=== PATIENT | female | born 1955 | race Caucasian/White ===

== ENCOUNTER 2019-04-14 23:56 | Inpatient (IN) | payer MEDICARE, MEDICAID, SELFPAY ==
[2019-04-15] VITALS (8 sets, daily range): BP systolic 101–128; BP diastolic 57–76; PULSE 61–73; RESP 14–22; TEMP 36.6–37.2; O2SAT 94–97; BMI 28.3
--- NOTE | 2019-04-15 00:04 | XR_ITS ---
WS: [id number] CHEST XRAY TECHNIQUE: Portable chest. CLINICAL INFORMATION: DOWNTIME: DEFIB FIRED COMPARISON: [id number] FINDINGS: Heart: Cardiomegaly. AICD. Lungs: Mild pulmonary vascular congestion. Chronic emphysematous changes. No focal pneumonia. Bones: Normal visualized bony structures. XR/XR chest 1V portable [id number] IMPRESSION: Cardiomegaly with mild pulmonary vascular congestion. No focal pneumonia.
[2019-04-15 00:54] LABS: Add RBC Morph No
[2019-04-15 00:56] LABS: Basophils % 0.2 %; Eosinophils % 0.1 %; Lymphocytes # 4.5 10^3/uL (0.8-4.8); Lymphocytes % 36.9 %; Mean Corpuscular HGB Conc 32.4 g/dL (30.0-36.0); Mean Corpuscular Hemoglobin 30.8 pg (28.0-34.0); Mean Corpuscular Volume 95.1 fL (81-99); Mean Platelet Volume 11.8 fL (7.4-10.4); Monocytes # 0.7 10^3/uL (0.2-0.9); Monocytes % 5.9 %; Neutrophils # 6.9 10^3/uL (1.8-7.7); Neutrophils % 56.3 %; Nucleated Red Blood Cells % 0 %; Platelet Count 220 10^3/cmm (130-400); Red Blood Count 3.89 10^6/uL (4.1-5.3); White Blood Count 12.2 10^3/uL (4.0-10.0)
[2019-04-15 01:01] LABS: INR 0.93 (0.8-1.2)
--- NOTE | 2019-04-15 01:25 | PC.NURSE ---
Patient c/o defibrillator discharging one time
--- NOTE | 2019-04-15 01:45 | P.HP_ITS ---
Providers/Chief Complaint Primary Care Provider: Lois Sorto Chief Complaint: DEFIBULATER History of Present Illness Amber White is a 64 year old female who carries diagnosis of systolic congestive heart failure with reduced ejection fraction 30% status post AICD placement, ventricular arrhythmia, AICD firing, came in after she had AICD firing today 2 hours before her presentation to the hospital. Please note that her recent admission was also when she had AICD firing and device interrogation showed ventricular tachyarrhythmia, she was recommended coronary angiogram which she refused and decided to go home and think about it, she could not tolerate amiodarone hence metoprolol dose was increased to 50 mg twice a day. She was asked to follow-up with Dr. Saldaña. Patient has followed up with [facility], her lisinopril was discontinued and she was started on Entresto, recently she had a gout flareup in her left ankle and she was prescribed prednisone, colchicine along with allopurinol. Today patient presented to ER after her AICD fired 2 hours before her arrival to ED. Patient is stating that she went to her friend's place where they usually meet on regular basis, came back home, she was sitting in her couch when her AICD fired, this will be her third event, this year she had AICD discharge in January as well. She did not tolerate amiodarone, her athletic field custodian attributed her cataract to amiodarone. Patient is denying chest pain, shortness of breath, nausea, vomiting, she is complaining of left ankle pain and headache at this point, no recent flulike symptoms. Diagnostics in ER showed normal electrolytes, blood pressure has been systolic 100-1 06, saturating 95% on room air, I have requested BNP, chest x-ray Review of Systems Narrative: Patient was very agitated and was not really cooperative for the interview, Eyes: Denies: change in vision, blurry vision or eye redness ENMT: Denies: throat pain Card: Reports: swelling of feet/ankles, shortness of breath on exertion and shortness of breath when lying down; Denies: chest pain or palpitations Resp: Reports: shortness of breath GI: Denies: abdominal pain, nausea or vomiting : Denies: flank pain or difficulty urinating Musc: Reports: extremity swelling, joint pain, joint swelling and redness Neuro: Reports: restless legs Psych: Reports: anxiety Endo: Denies: excessive urination Mert/Lymph: Denies: easy bruising All/Imm: Reports: seasonal allergies Medications/Allergies Home Medications Medication Instructions Recorded Confirmed Last Taken Type allopurinol 300 mg PO DAILY 04/15/19 04/15/19 Unknown History budesonide-formoterol [Symbicort] 2 puff INHALATION BID 04/15/19 04/15/19 Unknown History clopidogrel 75 mg PO DAILY 04/15/19 04/15/19 Unknown History colchicine [Colcrys] 0.6 mg PO Q48H 04/15/19 04/15/19 Unknown History furosemide 40 mg PO BID 04/15/19 04/15/19 Unknown History gabapentin 300 mg PO TID 04/15/19 04/15/19 Unknown History levocetirizine 5 mg PO DAILY 04/15/19 04/15/19 Unknown History metoprolol tartrate 25 mg PO BID 04/15/19 04/15/19 Unknown History potassium chloride 20 meq PO BID 04/15/19 04/15/19 Unknown History rosuvastatin 10 mg PO DAILY 04/15/19 04/15/19 Unknown History sacubitril-valsartan [Entresto] 1 tab PO BID 04/15/19 04/15/19 Unknown History spironolactone 25 mg PO DAILY 04/15/19 04/15/19 Unknown History Allergies Allergy/AdvReac Type Severity Reaction Status Date / Time povidone-iodine Allergy Mild Unknown Verified 04/15/19 01:25 [From Betadine] soap [From Betadine] Allergy Mild Unknown Verified 04/15/19 01:25 PFSH Acute PFSH: Statuses (acute, chronic, etc) shown below reflect problem list status as previously entered and may not be historically accurate Medical History Arthritis (Acute) Back pain (Acute) COPD (chronic obstructive pulmonary disease) (Acute) Coronary artery disease (Chronic) Depression (Acute) Dyslipidemia (Acute) H/O coronary angiogram (Acute) Showed patent stented segment of RCA with diffuse disease in other vessels Neuropathy (Acute) Oxygen dependent (Acute) Non-oxygen dependent, BiPAP at night with 2 L oxygen attached Reduced ejection fraction concurrent with and due to acute heart failure (C hronic) Ejection fraction 30%, Sleep apnea (Acute) uses Bipap at night with 2 L o2 Sleep apnea with mood disorder (Acute) Smoker (Acute) Surgical History (Updated 04/15/19 @ 03:27 by Virgilio Santana MD) AICD (automatic cardioverter/defibrillator) present (Acute) 05/21/[address] Boucher History of appendectomy (Acute) History of implantable cardioverter-defibrillator (ICD) placement (Acute) History of tubal ligation (Acute) Hx of tonsillectomy (Acute) Social History Smoking and tobacco status: current some day smoker Alcohol intake: never Lives independently: Yes Marital status: / Vitals/I&O/Wt Weight last 48 hrs Weight 74.843 kg Physical Exam Narrative: EXAM NARRATIVE: Obese female was very agitated when I enter the room, sitting at the bedside HENMT: COMMON NORMALS: normocephalic Eye: COMMON NORMALS: PERRL and EOMs intact bilaterally Chest: CHEST: Yes symmetrical chest wall rise and No crepitus Cardio: COMMON NORMALS: regular rate, regular rhythm, S1 normal heart sound and S2 normal heart sound JUGULAR VENOUS DISTENTION: no JVD RHYTHM: regular rhythm GI: COMMON NORMALS: normal to inspection, nondistended, normoactive bowel sounds Extremity: OTHER: Tender left ankle, she did not really let me touch the left foot, her bilateral extremities are not edematous Neuro: COMMON NORMALS: oriented x3, CN's II-XII intact bilaterally, moves all extremities, no focal motor deficits, no sensory deficits noted and deep tendon reflexes 2+ bilaterally SENSORIUM/ORIENTATION: Yes alert and Yes oriented to person Psych: COMMON NORMALS: mental status grossly normal; negative for cooperative ACTIVITY/MOTOR BEHAVIOR: Yes psychomotor agitation and Yes restless Data Labs: Other Labs: All Labs last 24 hrs except CBC/BMP 04/14/19 04/14/19 04/15/19 23:35 23:35 23:35 RBC 3.89 L MCV 95.1 MCH 30.8 MCHC 32.4 RDW 15.0 MPV 11.8 H Neut % (Auto) 56.3 Lymph % (Auto) 36.9 [place] % (Auto) 5.9 Eos % (Auto) 0.1 Baso % (Auto) 0.2 Neut # (Auto) 6.9 Lymph # (Auto) 4.5 [place] # (Auto) 0.7 Eos # (Auto) 0.0 Baso # (Auto) 0.0 Nucleated RBC % (a uto) 0 Nucleated RBCs # 0.0 PT 12.80 INR 0.93 GFR Calculation 45.2 L Calcium 10.3 H Total Bilirubin 0.2 AST 18 ALT 16 Alkaline Phosphata se 102 Troponin T Baselin e 19 H Total Protein 7.2 Albumin 4.9 Globulin 2.3 A&P Assessment and plan (1) AICD discharge: Third event, no electrolyte imbalance, she did not tolerate amiodarone last time because of cataract development, I had a discussion with her that if overnight her AICD keeps discharging we will have to use amiodarone we will not use it for long-term, she is agreeable Device interrogation Status: Acute Code(s): Z45.02 - Encounter for adjustment and management of automatic implantable cardiac defibrillator (2) Reduced ejection fraction concurrent with and due to acute heart failure: Clinically patient looks compensated for her systolic congestive heart failure exacerbation which is chronic we will get BNP level for now I will keep her on same home regimen of Lasix long potassium supplementation Troponin mild elevation will check second and 6-hour troponin, EKG has been normal Patient is chest pain-free Status: Chronic Code(s): I50.21 - Acute systolic (congestive) heart failure (3) Coronary artery disease: Patient was recommended another coronary angiogram on last visit Entresto has been added by cardiology to see her response She is agreeable to get another angiogram if that would help her with her symptoms Status: Chronic Qualifiers: Coronary Disease-Associated Artery/Lesion type: due to calcified coronary lesion Qualified Code(s): I25.10 - Atherosclerotic heart disease of [place] coronary artery without angina pectoris; I25.84 - Coronary atherosclerosis due to calcified coronary lesion Code(s): I25.10 - Atherosclerotic heart disease of [place] coronary artery without angina pectoris (4) AICD (automatic cardioverter/defibrillator) present: This will be her third event of AICD discharge, previous AICD interrogation showed ventricular arrhythmia when she had syncopal event, she has normal electrolytes, she has not been able to rest properly for last 48 hours, she is currently smoking, chest pain-free, agreeable to get another angiogram Compliant with her medications We will get cardiology consult in the morning Patient is specifically requesting Dr. Saldaña Device interrogation Status: Acute Code(s): Z95.810 - Presence of automatic (implantable) cardiac defibrillator (5) Gout attack: She needs 2 more days of steroids, will continue allopurinol and colchicine for now she has gout flareup of left ankle, uric acid not relevant in acute attack would not rely on it however less than 6 Status: Acute Qualifiers: Gout site: ankle Laterality: left Qualified Code(s): M10.272 - Drug- induced gout, left ankle and foot Code(s): M10.9 - Gout, unspecified (6) Smoker: She is smoking 1 pack/day, not ready to quit Status: Acute Code(s): F17.200 - Nicotine dependence, unspecified, uncomplicated (7) Sleep apnea syndrome: She uses BiPAP at night with 2 L, currently refusing BiPAP and is agreeable to get oxygen at night, Status: Acute Code(s): G47.30 - Sleep apnea, unspecified Attestations Medical Necessity Statement*: This will be her third event of AICD discharge, however no inciting factor identified other than her chronic condition of systolic congestive heart failure and coronary artery disease, will touch base with cardiology in the morning I am anticipating she will be discharge in less than 48 hours if angiogram does not get planned on this visit Time Spent in Patient Care: (>than 50% of time spent in counselling and/or direct pt care on unit) . 60 Coding Level of Care Code Acute Cloth Boil Off Machine Operator for Claudiag Fwd Diagnoses AICD discharge Z45.02 Reduced ejection fraction concurrent with and due to acute heart failure I50.21 Coronary artery disease I25.10; I25.84 Coronary Disease-Associated Artery/Lesion type: due to calcified coronary lesion AICD (automatic cardioverter/defibrillator) present Z95.810 Gout attack M10.272 Gout site: ankle Laterality: left Smoker F17.200 Sleep apnea syndrome G47.30
[2019-04-15] MEDS: acetaminophen 500 mg Tablet 1000 MG PO (02:29)
--- NOTE | 2019-04-15 07:30 | PC.NURSE ---
PT ARRIVED TO FLOOR VIA WHEEL CHAIR FROM ED TO ROOM 102. PT TRANSFERRED SELF TO BED FROM WHEEL CHAIR. PT IN SINUS RHYTHM. V/S WNL. WILL CONTINUE TO MONITOR.
[2019-04-15] MEDS: predniSONE 20 mg Tablet 40 MG PO (08:29)
[2019-04-15] MEDS: atorvastatin 40 mg Tablet PO (08:30)
[2019-04-15] MEDS: clopidogrel 75 mg Tablet PO (08:30)
[2019-04-15] MEDS: metoprolol tartrate 50 mg Tablet PO ×2 (08:30→17:53)
[2019-04-15] MEDS: allopurinol 300 mg Tablet PO (08:30)
[2019-04-15] MEDS: sacubitril/valsartan 24-26 mg Tablet 1 EACH PO ×2 (08:30→17:59)
[2019-04-15] MEDS: FUROsemide 40 mg Tablet PO (08:31)
[2019-04-15] MEDS: gabapentin 300 mg Capsule PO ×3 (08:31→21:34)
[2019-04-15] MEDS: heparin 5,000 unit/mL INJ 1 mL 5000 UNIT SUBCUT ×2 (11:00→21:34)
[2019-04-15] MEDS: acetaminophen 325 mg Tablet 650 MG PO (11:01)
--- NOTE | 2019-04-15 12:02 | PC.CHAP ---
Pastoral Care Encounter/Spiritual Assessment Type of Contact [] Declined fish straightener visit [] Patient/Family/Request visit [] Outpatient visit [] Follow-up visit [] Physician referral [] Code/Alert [x] Routine visit [] Staff referral [] Actively dying [] Patient sleeping [] Family support [] [] Out of room [] Palliative care [] [] Receiving care in room [] Pre-surgical visit [] Trauma [] Long length of stay [] ICU visit [] Other: Relational/Emotional Strength [] Patient feels connected with others/family/visitors/staff [] Distress [] Loneliness/isolation [] Abandonment Spirituality of Patient [] Person of Yanni [] Attends Sikhism of their [place] [x] Believes in Prayer [] Reads Bible or Jew materials [] There are Spiritual issues to be addressed Bias Cutting Machine Operator Interventions [x] Prayer [x] Active listening [] Non-anxious presence [] Spiritual/emotional support [] Crisis/trauma care [] Spiritual counseling [] Bereavement support [] Provided bereavement packet [] Provided Bible/devotional materials [] Provided toy/stuffed animal, coloring book to patient or family member [] Completed spiritual assessment [] Provided Communion [] Anointing/[place] [] Salvation [] Other: Impact on Illness or Injury [x] Angry [] Fearful [x] Anxious [] Often cries [] Exhaustion [] Unable to work [] Unable to attend church [] Unable to walk/stand [] Unable to read [] Unable to drive [] Unable to eat/drink [] Unable to sleep [] Unable to be with family [] Other: Summary Had not been seen by doctor yet... checked into ER/new computer system ... Time spent with patient 5 minutes
--- NOTE | 2019-04-15 12:28 | PC.CHAP ---
Pastoral Care Encounter/Spiritual Assessment Type of Contact [] Declined hotel yardperson visit [] Patient/Family/Request visit [] Outpatient visit [] Follow-up visit [] Physician referral [] Code/Alert [x] Routine visit [] Staff referral [] Actively dying [] Patient sleeping [] Family support [] [] Out of room [] Palliative care [] [] Receiving care in room [] Pre-surgical visit [] Trauma [] Long length of stay [] ICU visit [] Other: Relational/Emotional Strength [] Patient feels connected with others/family/visitors/staff [x] Distress [] Loneliness/isolation [] Abandonment Spirituality of Patient [] Person of Yanni [] Attends Hindu of their [place] [x] Believes in Prayer [] Reads Bible or Denominational materials [] There are Spiritual issues to be addressed Audio Tape Librarian Interventions [x] Prayer [x] Active listening [x] Non-anxious presence [x] Spiritual/emotional support [] Crisis/trauma care [] Spiritual counseling [] Bereavement support [] Provided bereavement packet [] Provided Bible/devotional materials [] Provided toy/stuffed animal, coloring book to patient or family member [x] Completed spiritual assessment [] Provided Communion [] Anointing/[place] [] Salvation [] Other: Impact on Illness or Injury [x] Angry [] Fearful [x] Anxious [] Often cries [] Exhaustion [] Unable to work [] Unable to attend presybeterian [] Unable to walk/stand [] Unable to read [] Unable to drive [] Unable to eat/drink [] Unable to sleep [] Unable to be with family [] Other: Summary wants to see doctor immediately checked into ER ... New System not an excuse for mess pray and leave Time spent with patient 5 minutes
--- NOTE | 2019-04-15 12:37 | P.PN_ITS ---
Subjective Subjective: Interval history: Overnight H&P reviewed. No acute overnight events. Underwent pacemaker interrogation this morning. Cardiology consult placed this morning. Medications: Reviewed: Yes Vitals/I&O/Wt Last Vital Signs Temp 98.2 F 04/15/19 08:00 Pulse 63 04/15/19 08:00 Resp 14 04/15/19 08:00 BP 123/70 04/15/19 08:00 Pulse Ox 97 04/15/19 08:00 04/14/19 04/15/19 04/15/19 22:59 06:59 14:59 Intake Total 100 / 100 240 / 240 Balance 100 / 100 240 / 240 Weight last 48 hrs Weight 109.27 kg Weight 109.316 kg Weight 74.843 kg Physical Exam Const: COMMON NORMALS: no apparent distress, oriented x3 and alert Neck/C-Spine: COMMON NORMALS: no JVD Resp: COMMON NORMALS: normal respiratory effort, no retractions, no use of accessory muscles and clear to auscultation bilaterally AUSCULTATION: clear to auscultation bilaterally Cardio: COMMON NORMALS: no JVD, regular rate, regular rhythm, S1 normal heart sound, S2 normal heart sound and no gallops RATE: regular rate RHYTHM: regular rhythm HEART SOUNDS: S1 normal and S2 normal GI: COMMON NORMALS: normal to inspection, nondistended, normoactive bowel sounds, soft to palpation, non-tender and no hepatosplenomegaly PALPATION: Yes soft and Yes no hepatosplenomegaly Extremity: COMMON NORMALS: normal to inspection Neuro: COMMON NORMALS: oriented x3 and CN's II-XII intact bilaterally SENSORIUM/ORIENTATION: Yes alert Data Labs: Other Labs: All Labs last 24 hrs except CBC/BMP 04/14/19 04/14/19 04/15/19 23:35 23:35 23:35 RBC 3.89 L MCV 95.1 MCH 30.8 MCHC 32.4 RDW 15.0 MPV 11.8 H Neut % (Auto) 56.3 Lymph % (Auto) 36.9 [place] % (Auto) 5.9 Eos % (Auto) 0.1 Baso % (Auto) 0.2 Neut # (Auto) 6.9 Lymph # (Auto) 4.5 [place] # (Auto) 0.7 Eos # (Auto) 0.0 Baso # (Auto) 0.0 Nucleated RBC % (a uto) 0 Nucleated RBCs # 0.0 PT 12.80 INR 0.93 GFR Calculation 45.2 L Calcium 10.3 H Total Bilirubin 0.2 AST 18 ALT 16 Alkaline Phosphata se 102 Troponin T Baselin e 19 H Total Protein 7.2 Albumin 4.9 Globulin 2.3 A&P Assessment and plan (1) AICD discharge: Third event, no electrolyte imbalance, she did not tolerate amiodarone last time because of cataract development, I had a discussion with her that if overnight her AICD keeps discharging we will have to use amiodarone we will not use it for long-term, she is agreeable Device interrogation Status: Acute Code(s): Z45.02 - Encounter for adjustment and management of automatic implantable cardiac defibrillator (2) Reduced ejection fraction concurrent with and due to acute heart failure: Status: Chronic Code(s): I50.21 - Acute systolic (congestive) heart failure (3) Coronary artery disease: Patient was recommended another coronary angiogram on last visit Eladio has been added by cardiology to see her response She is agreeable to get another angiogram if that would help her with her symptoms Status: Chronic Qualifiers: Coronary Disease-Associated Artery/Lesion type: due to calcified coronary lesion Qualified Code(s): I25.10 - Atherosclerotic heart disease of [place] coronary artery without angina pectoris; I25.84 - Coronary atherosclerosis due to calcified coronary lesion Code(s): I25.10 - Atherosclerotic heart disease of [place] coronary artery without angina pectoris (4) AICD (automatic cardioverter/defibrillator) present: This will be her third event of AICD discharge, previous AICD interrogation showed ventricular arrhythmia when she had syncopal event, she has normal electrolytes, she has not been able to rest properly for last 48 hours, she is currently smoking, chest pain-free, agreeable to get another angiogram Compliant with her medications We will get cardiology consult in the morning Patient is specifically requesting Dr. Saldaña Device interrogation Status: Acute Code(s): Z95.810 - Presence of automatic (implantable) cardiac defibrillator (5) Gout attack: She needs 2 more days of steroids, will continue allopurinol and colchicine for now she has gout flareup of left ankle, uric acid not relevant in acute attack would not rely on it however less than 6 Status: Acute Qualifiers: Gout site: ankle Laterality: left Qualified Code(s): M10.272 - Drug- induced gout, left ankle and foot Code(s): M10.9 - Gout, unspecified (6) Smoker: She is smoking 1 pack/day, not ready to quit Status: Acute Code(s): F17.200 - Nicotine dependence, unspecified, uncomplicated (7) Sleep apnea syndrome: She uses BiPAP at night with 2 L, currently refusing BiPAP and is agreeable to get oxygen at night, Status: Acute Code(s): G47.30 - Sleep apnea, unspecified Coding Level of Care Code Acute Station Gateman for Chg Fwd Diagnoses AICD discharge Z45.02 Reduced ejection fraction concurrent with and due to acute heart failure I50.21 Coronary artery disease I25.10; I25.84 Coronary Disease-Associated Artery/Lesion type: due to calcified coronary lesion AICD (automatic cardioverter/defibrillator) present Z95.810 Gout attack M10.272 Gout site: ankle Laterality: left Smoker F17.200 Sleep apnea syndrome G47.30
--- NOTE | 2019-04-15 13:10 | P.CONIM_ITS ---
Providers/Reason For Consult Consulting Physican/Specialty*: Dr. Corona, cardiology Reason for Consult*: ICD firing Attending Physician: Virgilio Santana MD Primary Care Provider: Lois Sorto History of Present Illness History of Present Illness Amber White is a 64 year old female woman with past medical history of coronary artery disease status post RCA stent, H/o ischemic cardiomyopathy with last known left ventricular ejection fraction of 30% in January 2019, status p ost dual-chamber ICD placement in 2012 and generator change in May 2018, history of ventricular arrhythmia status post AICD discharge in January 2019 (for fast VT with cycle length of 200 ms with successful cardioversion), hypertension, dyslipidemia, obesity, chronic obstructive pulmonary disease, and obstructive sleep apnea on BiPAP at night presented with chief complaint of ICD firing. Patient had a pot luck with her friends yesterday evening and was waiting for midnight while reading her newspaper and all of a sudden she states the device started beeping and she felt that it shocked her. She denies having any chest pain or shortness of breath before or after the episode. She has gained some weight since February but denies having any orthopnea paroxysmal nocturnal dyspnea or lower extremity swelling. This episode felt different from her episode back in January where she had passed out at restaurant. She usually follows up with Dr. Saldaña and last saw him on 17 March 2019. In her hospitalization in January 2019, she underwent stress test which showed ronnie-infarct ischemia in inferior wall (in absence of prone imaging artifact could not be ruled out). Coronary angiogram was offered to her and at that point she wanted to think about it and discussed with Dr. Saldaña. Her lisinopril was changed to Entresto and dose of metoprolol was increased. Her device was interrogated ([employer] AAIR/DDDR 60/130/120). 1 episode of ventricular tachycardia at 290 ms with aborted charging due to successful antitachycardia pacing at 1:14 AM. No shocks. Review of Systems Const: Denies: fever, chills, change in appetite, fatigue or malaise Eyes: Denies: change in vision or eye discharge ENMT: Denies: throat pain, swelling of lips/tongue, bleeding gums, nasal congestion or nose bleeds Card: Denies: chest pain, palpitations, irregular heart rhythm, edema, lightheadedness, syncope, shortness of breath on exertion, shortness of breath when lying down or leg pain with exertion Resp: Denies: shortness of breath, productive cough, wheezing or coughing up blood GI: Denies: abdominal pain, nausea, vomiting, vomiting blood, heartburn/indigestion, diarrhea, constipation, change in bowel habits or blood in stool : Denies: difficulty urinating, painful urination, decreased urine ouput or blood in urine Musc: Denies: extremity swelling Skin/Breast: Denies: rash Neuro: Denies: weakness in extremities Endo: Denies: tired all the time Meds/Allergies Home Medications and Allergies Home Medications Medication Instructions Recorded Confirmed Type Vitamin C 500 mg PO DAILY 04/15/19 04/15/19 History albuterol sulfate 04/15/19 History allopurinol 300 mg PO DAILY 04/15/19 04/15/19 History aspirin 81 mg PO DAILY 04/15/19 04/15/19 History budesonide-formoterol [Symbicort] 2 puff INHALATION BID 04/15/19 04/15/19 Hist ory clopidogrel 75 mg PO DAILY 04/15/19 04/15/19 History furosemide 40 mg PO BID 04/15/19 04/15/19 History gabapentin 300 mg PO TID 04/15/19 04/15/19 History ipratropium bromide [Atrovent HFA] 2 puff INHALATION QID 04/15/19 04/15/19 History levocetirizine 5 mg PO DAILY 04/15/19 04/15/19 History magnesium oxide 250 mg PO DAILY 04/15/19 04/15/19 History metoprolol tartrate 25 mg PO BID 04/15/19 04/15/19 History multivitamin 1 tab PO DAILY 04/15/19 04/15/19 History nitroglycerin [Nitrostat] 0.4 mg SUBLINGUAL PRN 04/15/19 04/15/19 History omega-3 fatty acids 4,000 mg PO DAILY 04/15/19 04/15/19 History potassium chloride 20 meq PO BID 04/15/19 04/15/19 History ranitidine HCl 75 mg PO DAILY 04/15/19 04/15/19 History rosuvastatin 10 mg PO DAILY 04/15/19 04/15/19 History sacubitril-valsartan [Entresto] 1 tab PO BID 04/15/19 04/15/19 History spironolactone 25 mg PO DAILY 04/15/19 04/15/19 History Allergies Allergy/AdvReac Type Severity Reaction Status Date / Time povidone-iodine Allergy Mild Unknown Verified 04/15/19 01:25 [From Betadine] soap [From Betadine] Allergy Mild Unknown Verified 04/15/19 01:25 Current Medications Current Medications Generic Name Dose Route Start Last Admin Trade Name Charo PRN Reason Stop Dose Admin Allopurinol 300 mg 04/15/19 09:00 04/15/19 08:30 Zyloprim PO 300 mg DAILY MINGO Administration Atorvastatin Calcium 40 mg 04/15/19 09:00 04/15/19 08:30 Lipitor PO 40 mg DAILY MINGO Administration Clopidogrel Bisulfate 75 mg 04/15/19 09:00 04/15/19 08:30 Plavix PO 75 mg DAILY MINGO Administration Colchicine 0.6 mg 04/15/19 04:00 04/15/19 11:00 Colcrys PO Not Given Q48H MINGO Gabapentin 300 mg 04/15/19 09:00 04/15/19 08:31 Neurontin PO 300 mg TID MINGO Administration Heparin Sodium (Beef Lung) 5,000 unit 04/15/19 03:15 04/15/19 11:00 Heparin SUBCUT 5,000 unit Q8H MINGO Administration Metoprolol Tartrate 50 mg 04/15/19 09:00 04/15/19 08:30 Lopressor PO 50 mg BID MINGO Administration Potassium Chloride 20 meq 04/15/19 09:00 04/15/19 08:31 Klor-Con 10 PO 20 meq DAILY MINGO Administration Prednisone 40 mg 04/15/19 09:00 04/15/19 08:29 Prednisone PO 04/16/19 08:00 40 mg DAILY MINGO Administration PFSH Acute PFSH: Statuses (acute, chronic, etc) shown below reflect problem list status as previously entered and may not be historically accurate Medical History Arthritis (Acute) Back pain (Acute) Cardiomyopathy (Acute) COPD (chronic obstructive pulmonary disease) (Acute) Coronary artery disease (Chronic) Depression (Acute) Dyslipidemia (Acute) H/O coronary angiogram (Acute) Showed patent stented segment of RCA with diffuse disease in other vessels Neuropathy (Acute) Oxygen dependent (Acute) Non-oxygen dependent, BiPAP at night with 2 L oxygen attached Reduced ejection fraction concurrent with and due to acute heart failure (Chronic) Ejection fraction 30%, Sleep apnea (Acute) uses Bipap at night with 2 L o2 Sleep apnea with mood disorder (Acute) Smoker (Acute) Surgical History (Updated 04/15/19 @ 13:53 by Lidia Corona MD) AICD (automatic cardioverter/defibrillator) present (Acute) ICD placement in [address] with generator [address] Dr[address] Boucher on 05/21/2018 History of appendectomy (Acute) History of implantable cardioverter-defibrillator (ICD) placement (Acute) History of tubal ligation (Acute) Hx of tonsillectomy (Acute) Family History Father Hypertension Mother Diabetes Social History Smoking and tobacco status: current every day smoker cigarettes Alcohol intake: never Lives independently: Yes Marital status: / Vitals/I&O/Wt Last Vital Signs Temp 97.8 F 04/15/19 12:00 Pulse 65 04/15/19 12:00 Resp 14 04/15/19 12:00 BP 108/66 04/15/19 12:00 Pulse Ox 96 04/15/19 12:00 04/14/19 04/15/19 04/15/19 22:59 06:59 14:59 Intake Total 100 / 100 240 / 240 Balance 100 / 100 240 / 240 Weight last 48 hrs Weight 240 lb 14.4 oz Weight 241 lb Weight 165 lb Physical Exam Const: COMMON NORMALS: no apparent distress, oriented x3 and alert GENERAL APPEARANCE: cooperative, comfortable, well kempt and well hydrated HENMT: COMMON NORMALS: normocephalic, head/scalp atraumatic, hearing grossly normal bilaterally, external ears normal, external nose normal and moist oral mucous membranes HEAD & SCALP: normocephalic and atraumatic FACE & SINUS: normal facial exam; no facial edema NOSE: external nose normal and no nasal discharge; no epistaxis EXTERNAL EAR: Yes external ears normal Eye: COMMON NORMALS: PERRL, EOMs intact bilaterally, conjunctivae normal and no scleral icterus GENERAL EYE: normal appearance of both eyes ALIGNMENT: Yes alignment normal CONJUNCTIVA: Yes conjunctivae normal PUPIL: Yes PERRL Neck/C-Spine: COMMON NORMALS: supple, no JVD and thyroid normal GENERAL: Yes normal visual inspection, Yes trachea midline and No mass THYROID: thyroid normal CAROTIDS: Yes normal carotid upstroke CERVICAL SPINE: Yes cervical ROM normal Lymph: LYMPHATIC: no lymphadenopathy noted Chest: COMMONS NORMALS: inspection of chest normal and palpation of chest normal CHEST: Yes symmetrical chest wall rise, No mass, No tenderness, No scars and No rash BREAST/AXILLA INSPECTION: Yes normal inspection of the axillae Resp: COMMON NORMALS: clear to auscultation bilaterally and percussion normal EFFORT & INSPECTION: Yes able to speak in complete sentences, No tachypneic, No respiratory distress, No pursed lip breathing, No labored and No actively coughing AUSCULTATION: clear to auscultation bilaterally, no crackles, no rales, no rhonchi and no wheezes PERCUSSION: percussion normal Cardio: COMMON NORMALS: no JVD, regular rate, regular rhythm, S1 normal heart sound, S2 normal heart sound and peripheral pulses 2+ throughout PALPATION: normal PMI RATE: regular rate RHYTHM: regular rhythm HEART SOUNDS: S1 normal, S2 normal, no click, no gallops and no murmurs PERIPHERAL PULSES: pulses 2+ throughout, radial pulses present, posterior tibial pulses present and dorsalis pedis pulses present GI: COMMON NORMALS: soft to palpation AUSCULTATION: Yes normoactive bowel sounds PALPATION: Yes soft, No tender, No guarding and No rigid Extremity: GENERAL: No cyanosis, Yes edema and No pallor Neuro: COMMON NORMALS: oriented x3, CN's II-XII intact bilaterally, no focal motor deficits and no sensory deficits noted SENSORIUM/ORIENTATION: Yes alert Psych: APPEARANCE: Yes well kempt Data Labs: Other Labs: All Labs last 24 hrs except CBC/BMP 04/14/19 04/14/19 04/15/19 23:35 23:35 23:35 RBC 3.89 L MCV 95.1 MCH 30.8 MCHC 32.4 RDW 15.0 MPV 11.8 H Neut % (Auto) 56.3 Lymph % (Auto) 36.9 [place] % (Auto) 5.9 Eos % (Auto) 0.1 Baso % (Auto) 0.2 Neut # (Auto) 6.9 Lymph # (Auto) 4.5 [place] # (Auto) 0.7 Eos # (Auto) 0.0 Baso # (Auto) 0.0 Nucleated RBC % (a uto) 0 Nucleated RBCs # 0.0 PT 12.80 INR 0.93 GFR Calculation 45.2 L Calcium 10.3 H Total Bilirubin 0.2 AST 18 ALT 16 Alkaline Phosphata se 102 Troponin T Baselin e 19 H Total Protein 7.2 Albumin 4.9 Globulin 2.3 Other Data: Other data: ECHOCARDIOGRAPHY, COMPLETE ? 01/21/2019 1-Moderately increased left ventricular cavity size. Severely decreased left ventricular systolic function. Left ventricular ejection fraction is estimated at 30 %. He appeared to be mid to distal anterior apical and mid to distal lateral wall dyskinesis suggestive of old myocardial infarction in LAD territory. Grade I/IV diastolic dysfunction (abnormal relaxation filling pattern), normal to mildly elevated filling pressures. 2-There is no pericardial effusion. 3-No significant valve abnormalities. 4-Right atrial pressure is around 5 mm of mercury. 5-No significant change since the prior echocardiogram study of 05/30/16. LMM STRESS 01/2019 1. No significant EKG changes with the LexiScan infusion 2. No LexiScan induced chest pain or cardiac arrhythmia 3. Normal blood pressure and heart rate response Large area of fixed perfusion defect noted in the mid to distal anterior anteroseptal and inferior wall surrounded by moderate reversibility in basal tomid inferior wall suggestive of anterior anteroseptal and mid to distal distal old myocardial infarction with moderate ronnie-infarct ischemia in basal to mid inferior wall. LEFT HEARTH CATHETERIZATION 01/01/2014. Procedure Summary Patent stented segments of the RCA Mild disease in the other vessels Severe diffuse hypokinesia of the dilated left ventricle with an ejection fraction of 20%. Mild to moderate MR. Normal LVEDP Recommendations Optimize medical treatment A&P Assessment and plan (1) AICD discharge: * Her device was interrogated ([employer] AAIR/DDDR 60/130/120). 1 episode of ventricular tachycardia at 290 ms with aborted charging due to successful antitachycardia pacing at 1:14 AM. No shocks. * Mild pulmonary congestion on chest x-ray, increasing OptiVol index on device; however clinically appears euvolemic. I will change her afternoon dose of Lasix 40 mg to IV. * Add proBNP to her morning labs. * Maintain potassium more than 4 and magnesium more than 2. * Moderate ronnie-infarct ischemia in inferior wall on stress test in January. * May benefit from coronary angiogram. 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 Saldaña tomorrow morning. * Continue metoprolol tartrate 50 mg twice a day Status: Acute Code(s): Z45.02 - Encounter for adjustment and management of automatic implantable cardia c defibrillator (2) Coronary artery disease: Continue aspirin, plavix and statin. -We will keep her n.p.o. after midnight in preparation for coronary angiogram. Status: Chronic Qualifiers: Coronary Disease-Associated Artery/Lesion type: due to calcified coronary lesion Qualified Code(s): I25.10 - Atherosclerotic heart disease of [place] coronary artery without angina pectoris; I25.84 - Coronary ather osclerosis due to calcified coronary lesion Code(s): I25.10 - Atherosclerotic heart disease of [place] coronary artery without angina pectoris (3) AICD (automatic cardioverter/defibrillator) present: Status: Acute Code(s): Z95.810 - Presence of automatic (implantable) cardiac defibrillator (4) Cardiomyopathy: H/o ischemic cardiomyopathy with last known left ventricular ejection fraction of 30% by echocardiogram and 22% by myocardial perfusion imaging. -On Lasix, metoprolol, Entresto and Aldactone. Status: Acute Code(s): I42.9 - Cardiomyopathy, unspecified (5) Smoker: She is smoking 1 pack/day, not ready to quit Status: Acute Code(s): F17.200 - Nicotine dependence, unspecified, uncomplicated (6) Sleep apnea syndrome: She uses BiPAP at night with 2 L, currently refusing BiPAP and is agreeable to get oxygen at night, Status: Acute Code(s): G47.30 - Sleep apnea, unspecified (7) Gout attack: Status: Acute Qualifiers: Gout site: ankle Laterality: left Qualified Code(s): M10.272 - Drug- induced gout, left ankle and foot Code(s): M10.9 - Gout, unspecified Coding Level of Care Code Acute [employer] Professional for [facility] Fwd Exam Problem Focused Diagnoses AICD discharge Z45.02 Coronary artery disease I25.10; I25.84 Coronary Disease-Associated Artery/Lesion type: due to calcified coronary lesion AICD (automatic cardioverter/defibrillator) present Z95.810 Cardiomyopathy I42.9 Smoker F17.200 Sleep apnea syndrome G47.30 Gout attack M10.272 Gout site: ankle Laterality: left
[2019-04-15] MEDS: FUROsemide 10 mg/mL SDV 4mL 40 MG IVP (13:19)
[2019-04-15] MEDS: ipratropium-albuterol 3 mL Neb INHALATION (13:31)
--- NOTE | 2019-04-15 13:52 | PC.RESP ---
In room to do assessment and give treatment. Med scanned, pt then took a phone call so treatment is delayed. Phone call has now taken over thirty minutes.
--- NOTE | 2019-04-15 14:42 | ECG_ITS ---
Measurements Intervals [place] Rate: 69 P: 70 [place]: 205 QRS: -23 QRSD: 123 T: 75 QT: 413 QTc: 443 SINUS RHYTHM INFERIOR MYOCARDIAL INFARCTION,OF INDETERMINATE AGE ANTEROLATERAL MYOCARDIAL INFARCTION,OF INDETERMINATE AGE Compared to ECG 01/20/2019 20:12:23 Left-axis deviation no longer present Myocardial infarct finding still present Electronically Signed On 04-16-2019 7:34:30 PRACTICING DERMATOLOGIST by Lidia Corona M.D. [email or web address]
[2019-04-15 14:48] LABS: Add Urine Microscopic? NO
[2019-04-15 15:11] LABS: Anion Gap 19.3 (5-19); Blood Urea Nitrogen 36 mg/dL (8-23); Carbon Dioxide 21 mmol/L (22-29); Chloride 100 mmol/L (98-107); Glomerular Filtration Rate 45.2 mL/min (90-130); Potassium 4.3 mmol/L (3.5-5.1); Sodium 136 mmol/L (136-145); Troponin(5th) Baseline 19 ng/mL (0-10)
[2019-04-15 15:12] LABS: Alanine Aminotransferase 16 U/L (0-33); Albumin Level 4.9 g/dL (3.5-5.2); Alkaline Phosphatase 102 IU/L (35-105); Aspartate Amino Transferase 18 U/L (0-32); Calcium 10.3 mg/Dl (8.8-10.2); Globulin 2.3 g/dL (1.3-4.6); Glucose 105 mg/dL (74-106); Total Bilirubin 0.2 mg/dL (0.15-1.2); Total Protein 7.2 g/dL (6.6-8.7)
[2019-04-15 15:25] LABS: Bilirubin Urine Neg (Negative); Blood Urine Neg (Negative); Glucose Urine UA Norm (Normal); Ketones Urine Negative (Negative); Leukocyte Esterase Urine Negative (Negative); Nitrate Urine Negative (Negative); Protein Urine Neg (Negative); Specific Gravity, Urine 1.005 (1.005-1.030); Urine Appearance Clear (CLEAR); Urine Color Straw (Yellow); Urobilinogen Urine Norm (Negative); pH Urine 5 (5-7)
[2019-04-15 15:36] LABS: NT Pro B Type Natriuretic Pept 1273 pg/mL (0-125)
--- NOTE | 2019-04-15 18:38 | PM.PN ---
Subjective Subjective: Interval history: no furtheer episodes of feeling shocks. No chest pain, dyspnea, palpitations. underwent AICD interrogation which showed 1 episode of ventricular tachycardia at 290 ms with aborted charging due to successful antitachycardia pacing at 1:14 AM. No shocks. Also evidence of fluid overload. Patient states her clothes have been fitting her tighter than usual. Vitals/I&O/Wt Last Vital Signs Temp 98.9 F 04/15/19 15:37 Pulse 64 04/15/19 15:37 Resp 21 H 04/15/19 15:37 BP 112/70 04/15/19 15:37 Pulse Ox 94 04/15/19 15:37 04/15/19 04/15/19 04/15/19 06:59 14:59 22:59 Intake Total 100 / 100 360 / 360 480 / 840 Output Total 300 / 300 1000 / 1300 Balance 100 / 100 60 / 60 -520 / -460 Weight last 48 hrs Weight 109.27 kg Weight 109.316 kg Weight 74.843 kg Physical Exam Const: COMMON NORMALS: no apparent distress and oriented x3 Chest: COMMONS NORMALS: inspection of chest normal Resp: COMMON NORMALS: normal respiratory effort, no retractions and no use of accessory muscles AUSCULTATION: rales Cardio: COMMON NORMALS: S1 normal heart sound, S2 normal heart sound, no murmurs and no rub HEART SOUNDS: S1 normal and S2 normal GI: COMMON NORMALS: soft to palpation and non-tender INSPECTION: Yes normal to inspection AUSCULTATION: Yes normoactive bowel sounds PALPATION: Yes soft Neuro: COMMON NORMALS: oriented x3, no sensory deficits noted and deep tendon reflexes 2+ bilaterally Data Labs: Other Labs: All Labs last 24 hrs except CBC/BMP 04/14/19 04/14/19 04/14/19 23:35 23:35 23:35 RBC 3.89 L MCV 95.1 MCH 30.8 MCHC 32.4 RDW 15.0 MPV 11.8 H Neut % (Auto) 56.3 Lymph % (Auto) 36.9 [place] % (Auto) 5.9 Eos % (Auto) 0.1 Baso % (Auto) 0.2 Neut # (Auto) 6.9 Lymph # (Auto) 4.5 [place] # (Auto) 0.7 Eos # (Auto) 0.0 Baso # (Auto) 0.0 Nucleated RBC % (a uto) 0 Nucleated RBCs # 0.0 PT 12.80 INR 0.93 GFR Calculation Calcium Total Bilirubin AST ALT Alkaline Phosphata se Troponin T Baselin e NT-Pro-B Natriuret Pep 1273 H Total Protein Albumin Globulin Urine Color Urine Appearance Urine pH Ur Specific Gravit y Urine Protein Urine Glucose (UA) Urine Ketones Urine Occult Blood Urine Nitrate Urine Bilirubin Urine Urobilinogen Ur Leukocyte Val ase 04/14/19 04/14/19 04/15/19 23:35 23:35 14:00 RBC MCV MCH MCHC RDW MPV Neut % (Auto) Lymph % (Auto) [place] % (Auto) Eos % (Auto) Baso % (Auto) Neut # (Auto) Lymph # (Auto) [place] # (Auto) Eos # (Auto) Baso # (Auto) Nucleated RBC % (a uto) Nucleated RBCs # PT INR GFR Calculation 45.2 L Calcium 10.3 H Total Bilirubin 0.2 AST 18 ALT 16 Alkaline Phosphata se 102 Troponin T Baselin e 19 H NT-Pro-B Natriuret Pep Total Protein 7.2 Albumin 4.9 Globulin 2.3 Urine Color Straw Urine Appearance Clear Urine pH 5 Ur Specific Gravit y 1.005 Urine Protein Neg Urine Glucose (UA) Norm Urine Ketones Negative Urine Occult Blood Neg Urine Nitrate Negative Urine Bilirubin Neg Urine Urobilinogen Norm Ur Leukocyte Val ase Negative 04/15/19 23:35 RBC MCV MCH MCHC RDW MPV Neut % (Auto) Lymph % (Auto) [place] % (Auto) Eos % (Auto) Baso % (Auto) Neut # (Auto) Lymph # (Auto) [place] # (Auto) Eos # (Auto) Baso # (Auto) Nucleated RBC % (a uto) Nucleated RBCs # PT INR GFR Calculation Cancelled Calcium Cancelled Total Bilirubin Cancelled AST Cancelled ALT Cancelled Alkaline Phosphata se Cancelled Troponin T Baselin e Cancelled NT-Pro-B Natriuret Pep Total Protein Cancelled Albumin Cancelled Globulin Cancelled Urine Color Urine Appearance Urine pH Ur Specific Gravit y Urine Protein Urine Glucose (UA) Urine Ketones Urine Occult Blood Urine Nitrate Urine Bilirubin Urine Urobilinogen Ur Leukocyte Val ase A&P Assessment and plan (1) Cardiomyopathy: Status: Acute Code(s): I42.9 - Cardiomyopathy, unspecified (2) Sleep apnea syndrome: Status: Acute Code(s): G47.30 - Sleep apnea, unspecified (3) AICD discharge: Status: Acute Code(s): Z45.02 - Encounter for adjustment and management of automatic implantable cardiac defibrillator (4) Gout attack: Status: Acute Qualifiers: Gout site: ankle Laterality: left Qualified Code(s): M10.272 - Drug-induced gout, left ankle and foot Code(s): M10.9 - Gout, unspecified (5) Oxygen dependent: Status: Acute Code(s): Z99.81 - Dependence on supplemental oxygen (6) COPD (chronic obstructive pulmonary disease): Status: Acute Code(s): J44.9 - Chronic obstructive pulmonary disease, unspecified (7) Reduced ejection fraction concurrent with and due to acute heart failure: Status: Chronic Code(s): I50.21 - Acute systolic (congestive) heart failure (8) Coronary artery disease: Status: Chronic Qualifiers: Coronary Disease-Associated Artery/Lesion type: due to calcified coronary lesion Qualified Code(s): I25.10 - Atherosclerotic heart disease of [place] coronary artery without angina pectoris; I25.84 - Coronary atherosclerosis due to calcified coronary lesion Code(s): I25.10 - Atherosclerotic heart disease of [place] coronary artery without angina pectoris Additional A&P Information Additional A&P Information: 1 episode of VT on interrogation, no electrolyte imbalance, she did not tolerate amiodarone last time because of cataract development. Based on history, she has been having fluid overload recently. She will get additional 40mg iv lasix today. She is exteremely concerned about renal adverse effecs from lasix, therefore we will hold off on po lasix for the evening. Patient was recommended another coronary angiogram on last visit, however she had declined. Option for an angiogram was discussed with her this visit, however she wishes to discuss this further with dr. houser tomorrow and then make a decision. She needs 2 more days of steroids, will continue allopurinol and colchicine for now she has gout flareup of left ankle Attestations Medical Necessity Statement*: management of VT episode last night, CHF and possible angiogram Coding Level of Care Code Acute Shop Coordinator for [facility] Fwd Exam Problem Focused Diagnoses Cardiomyopathy I42.9 Sleep apnea syndrome G47.30 AICD discharge Z45.02 Gout attack M10.272 Gout site: ankle Laterality: left Oxygen dependent Z99.81 COPD (chronic obstructive pulmonary disease) J44.9 Reduced ejection fraction concurrent with and due to acute heart failure I50.21 Coronary artery disease I25.10; I25.84 Coronary Disease-Associated Artery/Lesion type: due to calcified coronary lesion
--- NOTE | 2019-04-15 21:42 | PC.NURSE ---
Patient is refusing Bipap tonight. Patient is also refusing to be woke up in the middle of the night for vitals.
[2019-04-16] VITALS (15 sets, daily range): BP systolic 92–126; BP diastolic 39–67; PULSE 60–93; RESP 13–21; TEMP 36.4–36.8; O2SAT 94–98
--- NOTE | 2019-04-16 | XACV_ITS ---
Ht: 163 cm Wt: 108 kg BSA: 2.26 m2 Gender: Female : 1955 Any Known Allergies: Other Exam Priority: Routine Procedure(s): Procedure Description: Diagnostic procedure Procedure Description: Left Heart Catheterization Diagnostic Cath Status: Elective Diagnostic Findings LM has 0% stenosis. LAD has 0% stenosis. CX has 0% stenosis. RCA is a medium caliber vessel which is extensively stented from the ostium to the bifurcation, extending into the proximal segment of the PDA. The stent was found to be widely patent. No other significant stenotic lesion. The PLV branch was found to have minimal ostial narrowing. Coronary angiography shows right dominance. Conclusions This is a 64-year-old white female with history of hypertension, dyslipidemia, coronary artery disease, cardiomyopathy, ventricular tachycardia, presented with a recurrent episodes of ICD discharges. She had a myocardial perfusion imaging in January 2019 which revealed areas of fixed defect with small areas of reversible defect. In view of the patient's recurrent episodes of ventricular tachycardia and the abnormal myocardial perfusion imaging, it was thought to be appropriate to go ahead and do a cardiac catheterization, to further evaluate the coronary status and decide on further management. Patient underwent left heart catheterization with left and right coronary angiogram today. The findings are as follows. No significant disease noted in the Left Main, LAD, Circumflex, or RCA coronary arteries. The right coronary artery was extensively stented with the patent stents. LVEDP was 13 mmHg. LV gram was not performed because of the abnormal kidney function. Recommendations Continue current medical management and risk factor modification. Diagnostic RX Recommendation: medical therapy and/or counseling LV EDP: 13 mmHg Left Ventriculography Findings: LV gram was not performed because of the abnormal kidney function. Pressures Phase:Rest AO : 81 mmHg / 58 mmHg ( 64 mmHg ) @ 4:15:00 AM LV : 85 mmHg / -8 mmHg / @ 4:14:00 AM 87 mmHg / -2 mmHg / @ 4:14:00 AM Clinical Evaluation EBL: 5mL-10mL Procedural Details Dr. Babin notified. 13 mL of omnipaque contrast waste. Procedure Consent Obtained. Admit Source: In Patient. Pre-Procedure Time Out. Identified patient by full name and date of as verbalized by the patient/guarantor. Does the consent match the physician's order: Yes. Accurate & Complete Informed Consent: Yes. Inpatient/Outpatient History & Physical on Chart: Yes. If H&P is completed, is and addenduem needed: No; If yes, is the addendum complete: No. Visualize and Verify Site with Patient/Guarantor: N/A. Relevant Radiology Images available: No. Pre-op teaching completed and patient verbalized understanding. The risks, benefits, and alternatives of sedation and/or procedure were discussed by physician. The patient agrees to continue. Procedure started. Correct patient, site and procedure confirmed by cath team. PERRLA. Strong, equal hand mountain or glacier guide bilaterally. Lungs clear x 5 lobes. IV Site on Arrival: 20 gauge in the left anticubital. IV Fluids: 0.9% NaCl at KVO. 100 mL infused prior to laboratory geneticist. Pre Procedural Pulses: bilateral dorsalis pedis was 2+. Pre Procedural Pulses: bilateral posterior tibial was 2+. Pre Procedural Pulses: bilateral radial was 2+. Oxygen started at 2liters/min via nasal canula. bilateral groins was prepped with chloroprep then draped in the usual sterile fashion. Physician notified. Baseline sample Acquired. HR: 72 BPM. Physician arrived. Physician scrubbed in. Immediate Pre-Procedure Time Out. Correct Patient: Yes; Correct Procedure: Yes; Correct Site: Yes; Correct Patient Position: Yes; Correct Supplies: Yes; Dried Flammable Prep: Yes; Blood Products Available: N/A;. Equipment: 5F - Femoral. Lidocaine 1% infiltrated to the right groin. Arterial access obtained with micropuncture set. A 5 [place] islander JL4 catheter in over wire. Multiple views taken of left coronary artery. Catheter out. A 5 [place] islander JR4 catheter in over wire. Multiple views taken of right coronary artery. Catheter out. A 5 [place] islander Angled Pig catheter in over wire. EDP Sample taken: LV 87/-3,38; HR: 64 BPM; SpO2: 98%. Pullback taken: LV Off; AO Off; Mean: , Peak to Peak: , SEP: ; HR: 96 BPM; SpO2: 97%. Catheter out. Sheath(s) removed and manual pressure held until hemostasis was achieved. Sterile 4x4 and Op-site applied to the puncture site. No oozing or hematoma noted. Post sheath removal instructions were given and the patient verbalized understanding. Post Procedure: Pulses reassessed and unchanged. PERRLA. Strong, equal hand mountain or glacier guide bilaterally. No VTE prophylaxis required. Contrast Material : Omnipaque 75 ml. Medication's Wasted: Heparin = 4500 units. Medication's Wasted: Lidocaine 1% = 3 mL. Total IV fluids: 100 mL. A Manual Compression was successful obtaining hemostatsis at the Right Femoral artery insertion site. Complications: none. Estimated blood loss: 5mL-10mL. ACIST Manifold Kit Model BT 2000. Cardiac Cath Pack. Vital chart was stopped. [facility] Clinical Fraility Score: 4: Vulnerable. Aviation Survival Technician Indications: Cardiac Arrhythmia. Aviation Survival Technician Indications: Cardiomyopathy. Chest Pain Symptom Assessment: Atypical Angina. Post-op diagnosis: cardiomyopathy. Cardiovascular Instability: No. Procedure completed. Patient transferred by bed to 1st floor. Site: Right Femoral artery Sheath Size: 5 Fr Hemostasis Method: Manual Compression Hemostasis Success: Successful Procedure Medications Start: 10:00 AM Stop: 10:00 AM Medication: Versed 1 mg and Fentanyl 25 mcg Route: I.V. Start: 10:02 AM Stop: 10:02 AM Medication: Versed Amount: 1 mg Route: I.V. Start: 10:06 AM Stop: 10:06 AM Medication: Heparin Amount: 1500 units Route: I.V. Start: 10:16 AM Stop: 10:16 AM Medication: Fentanyl Amount: 25 mcg Route: I.V. Start: 10:25 AM Stop: 10:25 AM Medication: Fentanyl Amount: 50 mcg Route: I.V. I, the attending physician, have reviewed and verified all procedure medications. Yes, all medications given per verbal order History/Risk Factors Hypertension: No Dyslipidemia: Yes Peripheral Arterial Disease (PAD): No Myocardial Infarction (NE): No Obesity: No Renal Disease: No Tobacco Use: Current/Recent(w/in 1 year) Prior Interventions PCI: Yes CABG: No Valve Surgery: No Report Signatures Finalized by:Dr Lee Saldaña MD [facility] on 04/16/2019 7:05:42 PM
--- NOTE | 2019-04-16 08:54 | P.PN_ITS ---
Subjective Subjective: Interval history: Patient has not had any recurrence of ICD discharges, since the hospital admission . Currently she is doing okay. Denies any chest pain or shortness of breath. Vital signs are stable. Her BUN/creatinine is coming down. Denies any new symptoms. Medications: Reviewed: Yes Vitals/I&O/Wt Last Vital Signs Temp 97.7 F 04/16/19 08:49 Pulse 65 04/16/19 08:49 Resp 14 04/16/19 08:49 BP 116/67 04/16/19 08:49 Pulse Ox 94 04/16/19 08:49 04/15/19 04/16/19 04/16/19 22:59 06:59 14:59 Intake Total 480 / 840 Output Total 1450 / 1750 950 / 2700 Balance -970 / -910 -950 / -1860 Weight last 48 hrs Weight 235 lb 9.6 oz Weight 237 lb 12.8 oz Weight 240 lb 14.4 oz Weight 241 lb Weight 165 lb Physical Exam 2 Const: COMMON NORMALS: oriented x3, alert and well nourished GENERAL APPEARANCE: cooperative, well developed and well hydrated; not in distress HENMT: MOUTH: lip normal; no other (ulcers or bleeding) TEETH & GINGIVA: no other (bleeding observed and inflammation present) Eye: COMMON NORMALS: conjunctivae normal CONJUNCTIVA: Yes conjunctivae normal SCLERA: sclerae normal Neck/C-Spine: COMMON NORMALS: thyroid normal THYROID: thyroid normal CAROTIDS: Yes normal carotid upstroke (and runoff) Chest: COMMONS NORMALS: inspection of chest normal Resp: COMMON NORMALS: clear to auscultation bilaterally EFFORT & INSPECTION: Yes symmetric chest movement and No uses accessory muscles AUSCULTATION: clear to auscultation bilaterally, no crackles and no wheezes Cardio: COMMON NORMALS: regular rate and regular rhythm PALPATION: no heave, no palpable S3 and no thrill RATE: regular rate RHYTHM: regular rhythm BRUITS: no abdominal aortic bruits PERIPHERAL PULSES: femoral pulses present positive bilateral (Normal), posterior tibial pulses present positive bilateral (Normal) and dorsalis pedis pulses present positive bilateral (Normal) GI: AUSCULTATION: Yes normoactive bowel sounds and No abdominal bruit PALPATION: No tender, No hepatomegaly, No splenomegaly and No mass Back/Pelvis: GENERAL BACK: No swelling and No other (joint deformities) THORACIC SPINE/UPPER BACK: No kyphosis present LUMBAR SPINE/LOWER BACK: No lumbar scoliosis present Extremity: COMMON NORMALS: negative for no clubbing, cyanosis or edema and negative for no pedal edema GENERAL: No cyanosis Neuro: COMMON NORMALS: oriented x3; negative for no focal motor deficits SENSORIUM/ORIENTATION: Yes alert MOTOR EXAM: No tremor Psych: MOOD & AFFECT: Yes other (Normal mood and affect) Skin: COMMON NORMALS: skin turgor normal; negative for no petechiae GENERAL SKIN EXAM: turgor normal, skin not dry and no erythema RASHES: rash noted NAILS: normal, no clubbing, not discolored and no other (cyanosis) Data Other Data: Other data: The BUN from was 36 with a creatinine of 1.2 A&P Assessment and plan (1) Cardiomyopathy: Status: Acute Code(s): I42.9 - Cardiomyopathy, unspecified (2) Sleep apnea syndrome: Status: Acute Code(s): G47.30 - Sleep apnea, unspecified (3) AICD discharge: Status: Acute Code(s): Z45.02 - Encounter for adjustment and management of automatic implantable cardiac defibrillator (4) Gout attack: Status: Acute Qualifiers: Gout site: ankle Laterality: left Qualified Code(s): M10.272 - Drug- induced gout, left ankle and foot Code(s): M10.9 - Gout, unspecified (5) Oxygen dependent: Status: Acute Code(s): Z99.81 - Dependence on supplemental oxygen (6) COPD (chronic obstructive pulmonary disease): Status: Acute Code(s): J44.9 - Chronic obstructive pulmonary disease, unspecified (7) Reduced ejection fraction concurrent with and due to acute heart failure: Status: Chronic Code(s): I50.21 - Acute systolic (congestive) heart failure (8) Coronary artery disease: Status: Chronic Qualifiers: Coronary Disease-Associated Artery/Lesion type: due to calcified coronary lesion Qualified Code(s): I25.10 - Atherosclerotic heart disease of [place] coronary artery without angina pectoris; I25.84 - Coronary atherosclerosis due to calcified coronary lesion Code(s): I25.10 - Atherosclerotic heart disease of [place] coronary artery without angina pectoris Additional A&P Information Additional A&P Information: Because of the patient's recurrent episodes of ventricular tachycardia, and also in view of the abnormal myocardial perfusion imaging, in order to further evaluate her coronary status, a repeat cardiac catheterization would be appropriate. This was discussed with the patient in detail with risks and benefits. The risk of bleeding, hematoma, vascular injury, myocardial infarction, CVA, renal failure and other concomitant complications were explained in detail. Patient understood this well and consented to proceed. In view of her abnormal kidney function, she carries a higher risk for contrast-induced nephropathy. This was discussed in detail. Patient understood this well. Attestations Medical Necessity Statement*: Patient requires continued hospital stay for close monitoring and further management Coding Level of Care Code Established Pt Acute Roller Printing Supervisor for Chg Fwd Patient Type Established History Expanded Problem Focused Exam Expanded Problem Focused Medical Decision Making Moderate Complexity Diagnoses Cardiomyopathy I42.9 Sleep apnea syndrome G47.30 AICD discharge Z45.02 Gout attack M10.272 Gout site: ankle Laterality: left Oxygen dependent Z99.81 COPD (chronic obstructive pulmonary disease) J44.9 Reduced ejection fraction concurrent with and due to acute heart failure I50.21 Coronary artery disease I25.10; I25.84 Coronary Disease-Associated Artery/Lesion type: due to calcified coronary lesion
[2019-04-16 09:07] LABS: Basophils % 0.1 %; Eosinophils % 0.4 %; Hematocrit 43.1 % (37.0-47.0); Hemoglobin 13.5 g/dL (11.5-15.3); Lymphocytes # 5.1 10^3/uL (0.8-4.8); Lymphocytes % 50.2 %; Mean Corpuscular HGB Conc 31.3 g/dL (30.0-36.0); Mean Corpuscular Volume 99.1 fL (81-99); Mean Platelet Volume 11.6 fL (7.4-10.4); Monocytes # 0.5 10^3/uL (0.2-0.9); Monocytes % 4.7 %; Neutrophils # 4.5 10^3/uL (1.8-7.7); Nucleated Red Blood Cells % 0 %; Platelet Count 228 10^3/cmm (130-400); Red Blood Count 4.35 10^6/uL (4.1-5.3); Red Cell Distribution Width 15.1 % (12.1-15.1); White Blood Count 10.2 10^3/uL (4.0-10.0)
[2019-04-16 09:14] LABS: Add RBC Morph No
[2019-04-16] MEDS: gabapentin 300 mg Capsule PO ×3 (09:15→20:52)
[2019-04-16] MEDS: allopurinol 300 mg Tablet PO (09:15)
[2019-04-16] MEDS: sacubitril/valsartan 24-26 mg Tablet 1 EACH PO ×2 (09:15→17:12)
[2019-04-16] MEDS: atorvastatin 40 mg Tablet PO (09:15)
[2019-04-16] MEDS: diphenhydrAMINE 50 mg Capsule PO ×2 (09:18→09:33)
[2019-04-16] MEDS: clopidogrel 75 mg Tablet PO (09:18)
[2019-04-16] MEDS: metoprolol tartrate 50 mg Tablet PO ×2 (09:18→17:12)
[2019-04-16] MEDS: aspirin 81 mg EC Tablet PO (09:19)
[2019-04-16] MEDS: sodium chloride 0.9% 1,000 ML 50 ML IV (09:19)
[2019-04-16 09:43] LABS: INR 0.92 (0.8-1.2)
[2019-04-16 09:44] LABS: Anion Gap 16.8 (5-19); Blood Urea Nitrogen 32 mg/dL (8-23); Calcium 10.5 mg/Dl (8.8-10.2); Carbon Dioxide 26 mmol/L (22-29); Chloride 100 mmol/L (98-107); Glucose 99 mg/dL (74-106); Potassium 3.8 mmol/L (3.5-5.1); Sodium 139 mmol/L (136-145)
[2019-04-16 09:45] LABS: Magnesium 2.5 mg/dL (1.7-2.3)
--- NOTE | 2019-04-16 12:16 | P.PN_ITS ---
Subjective Subjective: Interval history: Hemodynamically stable overnight. No acute events. Patient was seen briefly while being taken to cardiac cath this morning. Patient was agreeable to diagnostic evaluation. Renal function is stable this morning. Medications: Reviewed: Yes Vitals/I&O/Wt Last Vital Signs Temp 97.6 F 04/16/19 11:21 Pulse 93 04/16/19 11:30 Resp 16 04/16/19 11:30 BP 108/58 04/16/19 11:21 Pulse Ox 98 04/16/19 11:30 04/15/19 04/16/19 04/16/19 22:59 06:59 14:59 Intake Total 480 / 840 600 / 600 Output Total 1450 / 1750 950 / 2700 Balance -970 / -910 -950 / -1860 600 / 600 Weight last 48 hrs Weight 106.866 kg Weight 107.864 kg Weight 109.27 kg Weight 109.316 kg Weight 74.843 kg Physical Exam Const: COMMON NORMALS: no apparent distress and oriented x3 Resp: COMMON NORMALS: normal respiratory effort and no use of accessory muscles Cardio: COMMON NORMALS: regular rate and regular rhythm RATE: regular rate RHYTHM: regular rhythm Neuro: COMMON NORMALS: oriented x3 A&P Assessment and plan (1) Cardiomyopathy: Status: Acute Code(s): I42.9 - Cardiomyopathy, unspecified (2) Sleep apnea syndrome: She uses BiPAP at night with 2 L, BiPAP ordered for nighttime use. Status: Acute Code(s): G47.30 - Sleep apnea, unspecified (3) AICD discharge: Patient has not had any episodes of AICD discharge since presenting to the hospital. Because of the recurrent nature of illness and recent myocardial perfusion imaging which was abnormal, she was advised to undergo catheter which she kindly agreed this morning. She is now status post cardiac catheterization awaiting results. Status: Acute Code(s): Z45.02 - Encounter for adjustment and management of automatic implantable cardiac defibrillator (4) Gout attack: She needs 2 more days of steroids, will continue allopurinol and colchicine Status: Acute Qualifiers: Gout site: ankle Laterality: left Qualified Code(s): M10.272 - Drug- induced gout, left ankle and foot Code(s): M10.9 - Gout, unspecified (5) Oxygen dependent: Status: Acute Code(s): Z99.81 - Dependence on supplemental oxygen (6) COPD (chronic obstructive pulmonary disease): Status: Acute Code(s): J44.9 - Chronic obstructive pulmonary disease, unspecified (7) Reduced ejection fraction concurrent with and due to acute heart failure: Clinically patient looks compensated for her systolic congestive heart failure exacerbation which is chronic we will get BNP level for now I will keep her on same home regimen of Lasix long potassium supplementation Troponin mild elevation will check second and 6-hour troponin, EKG has been normal Patient is chest pain-free Status: Chronic Code(s): I50.21 - Acute systolic (congestive) heart failure (8) Coronary artery disease: Status: Chronic Qualifiers: Coronary Disease-Associated Artery/Lesion type: due to calcified coronary lesion Qualified Code(s): I25.10 - Atherosclerotic heart disease of [place] coronary artery without angina pectoris; I25.84 - Coronary atherosclerosis due to calcified coronary lesion Code(s): I25.10 - Atherosclerotic heart disease of [place] coronary artery without angina pectoris Attestations Medical Necessity Statement*: Admitted for evaluation of recurrent AICD discharges. Status post coronary angiogram today. Coding Level of Care Code Acute Chief Optometry Service for Chg Fwd Diagnoses Cardiomyopathy I42.9 Sleep apnea syndrome G47.30 AICD discharge Z45.02 Gout attack M10.272 Gout site: ankle Laterality: left Oxygen dependent Z99.81 COPD (chronic obstructive pulmonary disease) J44.9 Reduced ejection fraction concurrent with and due to acute heart failure I50.21 Coronary artery disease I25.10; I25.84 Coronary Disease-Associated Artery/Lesion type: due to calcified coronary lesion
[2019-04-16] MEDS: heparin 5,000 unit/mL INJ 1 mL 5000 UNIT SUBCUT ×2 (13:15→21:05)
--- NOTE | 2019-04-16 14:49 | PC.CHAP ---
Pastoral Care Encounter/Spiritual Assessment Type of Contact [] Declined cake former visit [] Patient/Family/Request visit [] Outpatient visit [] Follow-up visit [] Physician referral [] Code/Alert [x] Routine visit [] Staff referral [] Actively dying [] Patient sleeping [] Family support [] [] Out of room [] Palliative care [] [] Receiving care in room [] Pre-surgical visit [] Trauma [] Long length of stay [] ICU visit [] Other: Relational/Emotional Strength [] Patient feels connected with others/family/visitors/staff [x] Distress [] Loneliness/isolation [] Abandonment Spirituality of Patient [] Person of [place] [] Attends Temple of their [place] [x] Believes in Prayer [] Reads Bible or Presybeterian materials [] There are Spiritual issues to be addressed Brick Paver Interventions [x] Prayer [x] Active listening [x] Non-anxious presence [x] Spiritual/emotional support [] Crisis/trauma care [] Spiritual counseling [] Bereavement support [] Provided bereavement packet [] Provided Bible/devotional materials [] Provided toy/stuffed animal, coloring book to patient or family member [x] Completed spiritual assessment [] Provided Communion [] Anointing/Ethel [] Salvation [] Other: Impact on Illness or Injury [] Angry [] Fearful [] Anxious [] Often cries [x] Exhaustion [] Unable to work [] Unable to attend sikhism [] Unable to walk/stand [] Unable to read [] Unable to drive [] Unable to eat/drink [] Unable to sleep [] Unable to be with family [] Other: Summary Brick Paver Amina visited with patient, she was tired and didn't want to talk just rest. Time spent with patient 2 minutes
--- NOTE | 2019-04-16 17:22 | PC.NURSE ---
SHEATH SITE CHECKED Q15M FOR BLEEDING. DRESSING CHANGED ONCE DUE TO OOZING. PRESSURE DRESSING REAPPLIED. NO FUTHER OOZING NOTED. 6 HOUR BEDREST COMPLETED AT 1630. PATIENT UP AND AMBULATING AT 1650. SHEATH SITE HAD NO NOTED OOZING. NO COMPLAINTS FROM PATIENT. VITAL SIGNS BEFORE AMBULATION STABLE, VITAL SIGNS STABLE AFTER AMBULATION, PATIENT UP IN THE CHAIR AT THIS TIME.
[2019-04-17] MEDS: acetaminophen 325 mg Tablet 650 MG PO ×2 (01:53→15:52)
[2019-04-17 04:00] VITALS: BP 96/52; PULSE 64; RESP 14; TEMP 36.6; O2SAT 98
--- NOTE | 2019-04-17 05:15 | PC.NURSE ---
DRESSING TO RIGHT GROIN IS C/D/I. NO HEMATOMA OR OOZING PRESENT. PEDAL PULSES ARE STRONG. WILL CONTINUE TO MONITOR.
[2019-04-17] MEDS: heparin 5,000 unit/mL INJ 1 mL 5000 UNIT SUBCUT ×2 (05:32→14:22)
[2019-04-17 07:46] VITALS: BP 128/73; PULSE 63; PULSE 64; RESP 19; TEMP 36.7; O2SAT 97
[2019-04-17 07:47] VITALS: PULSE 61; RESP 18; O2SAT 98
[2019-04-17] MEDS: allopurinol 300 mg Tablet PO (08:18)
[2019-04-17] MEDS: aspirin 81 mg EC Tablet PO (08:18)
[2019-04-17] MEDS: metoprolol tartrate 50 mg Tablet PO (08:18)
[2019-04-17] MEDS: atorvastatin 40 mg Tablet PO (08:23)
[2019-04-17] MEDS: clopidogrel 75 mg Tablet PO (08:23)
[2019-04-17] MEDS: gabapentin 300 mg Capsule PO ×2 (08:23→14:22)
[2019-04-17] MEDS: sacubitril/valsartan 24-26 mg Tablet 1 EACH PO (08:23)
--- NOTE | 2019-04-17 10:47 | PM.PN ---
Subjective Subjective: Interval history: Patient underwent left heart catheterization with left and right coronary angiogram yesterday. She was found to have patent right coronary artery. No significant disease in the left coronary system. Based on the angiogram findings, it was decided to treat her medically. Medications: Reviewed: Yes Medication Review Details: Patient may continue on the current medications. Vitals/I&O/Wt Last Vital Signs Temp 98.0 F 04/17/19 07:46 Pulse 61 04/17/19 07:47 Resp 18 04/17/19 07:47 BP 128/73 04/17/19 07:46 Pulse Ox 98 04/17/19 07:47 04/16/19 04/17/19 04/17/19 22:59 06:59 14:59 Intake Total 400.833 / 1240.833 360 / 360 Output Total 400 / 650 1400 / 2050 500 / 500 Balance 0.833 / 590.833 -1400 / -809.167 -140 / -140 Weight last 48 hrs Weight 241 lb Weight 235 lb 9.6 oz Weight 237 lb 12.8 oz Physical Exam Const: COMMON NORMALS: oriented x3, alert and well nourished GENERAL APPEARANCE: cooperative, well developed and well hydrated; not in distress HENMT: MOUTH: lip normal; no other (ulcers or bleeding) TEETH & GINGIVA: no other (bleeding observed and inflammation present) Eye: COMMON NORMALS: conjunctivae normal CONJUNCTIVA: Yes conjunctivae normal SCLERA: sclerae normal Neck/C-Spine: COMMON NORMALS: thyroid normal THYROID: thyroid normal CAROTIDS: Yes normal carotid upstroke (and runoff) Chest: COMMONS NORMALS: inspection of chest normal Resp: COMMON NORMALS: clear to auscultation bilaterally EFFORT & INSPECTION: Yes symmetric chest movement and No uses accessory muscles AUSCULTATION: clear to auscultation bilaterally, no crackles and no wheezes Cardio: COMMON NORMALS: regular rate and regular rhythm PALPATION: no heave, no palpable S3 and no thrill RATE: regular rate RHYTHM: regular rhythm BRUITS: no abdominal aortic bruits PERIPHERAL PULSES: femoral pulses present positive bilateral (Normal), posterior tibial pulses present positive bilateral (Normal) and dorsalis pedis pulses present positive bilateral (Normal) GI: AUSCULTATION: Yes normoactive bowel sounds and No abdominal bruit PALPATION: No tender, No hepatomegaly, No splenomegaly and No mass Back/Pelvis: GENERAL BACK: No swelling and No other (joint deformities) THORACIC SPINE/UPPER BACK: No kyphosis present LUMBAR SPINE/LOWER BACK: No lumbar scoliosis present Extremity: COMMON NORMALS: negative for no clubbing, cyanosis or edema and negative for no pedal edema NARRATIVE EXTREMITY EXAM: The right groin has no hematoma or bleeding. GENERAL: No cyanosis Neuro: COMMON NORMALS: oriented x3; negative for no focal motor deficits SENSORIUM/ORIENTATION: Yes alert MOTOR EXAM: No tremor Psych: MOOD & AFFECT: Yes other (Normal mood and affect) Skin: COMMON NORMALS: skin turgor normal; negative for no petechiae GENERAL SKIN EXAM: turgor normal, skin not dry and no erythema RASHES: rash noted NAILS: normal, no clubbing, not discolored and no other (cyanosis) A&P Assessment and plan (1) AICD discharge: She has not had any recurrence of ICD discharges, since the hospital admission. She is advised to continue on the current medications. She apparently had problems with amiodarone in the past. Discussed the patient about VT ablation procedure. She is not interested in the procedure at this time. The option of continuing the current treatment versus adding another antiarrhythmic drug was discussed. She had 2 episodes of V. tach within the last 1 year. I may discuss with an yarn texture machine operator before starting another antiarrhythmic drug, at this time. Status: Acute Code(s): Z45.02 - Encounter for adjustment and management of automatic implantable cardiac defibrillator (2) Cardiomyopathy: Patient has no evidence of any cardiac decompensation at this time. May continue on the current medications. Status: Acute Qualifiers: Cardiomyopathy type: ischemic Qualified Code(s): I25.5 - Ischemic cardiomyopathy Code(s): I42.9 - Cardiomyopathy, unspecified (3) Sleep apnea: Patient is on CPAP treatment. May continue the same. Status: Acute Qualifiers: Sleep apnea type: obstructive Qualified Code(s): G47.33 - Obstructive sleep apnea (adult) (pediatric) Code(s): G47.30 - Sleep apnea, unspecified (4) Coronary artery disease: Patient had the cardiac authorization yesterday. She was found to have patent stented segments of the right coronary artery. No significant disease was noted in the left coronary system. The LVEDP was 30 mmHg. Status: Chronic Qualifiers: Coronary Disease-Associated Artery/Lesion type: due to calcified coronary lesion Qualified Code(s): I25.10 - Atherosclerotic heart disease of [place] coronary artery without angina pectoris; I25.84 - Coronary atherosclerosis due to calcified coronary lesion Code(s): I25.10 - Atherosclerotic heart disease of [place] coronary artery without angina pectoris (5) Acute kidney injury: Patient was supposed to have the repeat BMP this morning. It has not been done. Will go ahead and have it done as soon as possible. If the BMP is acceptable, patient may go home today. We will see her in the office in 1 week by the nurse practitioner. I may see him in the office in 1 month Status: Acute Code(s): N17.9 - Acute kidney failure, unspecified Additional A&P Information Additional A&P Information: Patient is advised to give us a call back, in the event of she develop any recurrence of palpitations or any ICD discharges. Attestations Medical Necessity Statement*: Possible discharge home today Coding Level of Care Code Acute Post Secondary Professional for g Fwd History Detailed Exam Detailed Medical Decision Making Moderate Complexity Diagnoses AICD discharge Z45.02 Cardiomyopathy I25.5 Cardiomyopathy type: ischemic Sleep apnea G47.33 Sleep apnea type: obstructive Coronary artery disease I25.10; I25.84 Coronary Disease-Associated Artery/Lesion type: due to calcified coronary lesion Acute kidney injury N17.9
--- NOTE | 2019-04-17 11:55 | PC.NURSE ---
PT asked for me to come back for vitals after lunch
[2019-04-17 12:22] LABS: Anion Gap 14.4 (5-19); Blood Urea Nitrogen 26 mg/dL (8-23); Calcium 9.8 mg/Dl (8.8-10.2); Carbon Dioxide 22 mmol/L (22-29); Chloride 103 mmol/L (98-107); Glomerular Filtration Rate 55.8 mL/min (90-130); Glucose 98 mg/dL (74-106); Potassium 4.4 mmol/L (3.5-5.1); Sodium 135 mmol/L (136-145)
[2019-04-17 13:28] VITALS: BP 111/52; PULSE 17; PULSE 63; RESP 17; TEMP 36.7; O2SAT 95
[2019-04-17 15:28] VITALS: BP 111/52; PULSE 61; RESP 17; O2SAT 94
--- NOTE | 2019-04-19 22:56 | PM.DCS ---
Discharge Providers Date of Admission: 04/15/19 15:01 Date of Discharge: 04/17/19 Attending Provider at Admission: Virgilio Santana MD Attending Provider at Discharge: Pearl Stanley MD Primary Care Provider: Lois Sorto Diagnoses at Discharge Discharge Diagnosis (1) AICD discharge: Status: Acute (2) Reduced ejection fraction concurrent with and due to acute heart failure: Status: Chronic (3) Coronary artery disease: Status: Chronic Qualifiers: Coronary Disease-Associated Artery/Lesion type: due to calcified coronary lesion Qualified Code(s): I25.10 - Atherosclerotic heart disease of [place] coronary artery without angina pectoris; I25.84 - Coronary atherosclerosis due to calcified coronary lesion (4) AICD (automatic cardioverter/defibrillator) present: Status: Acute Problem details: ICD placement in [address] Dr[address] Boucher on 05/21/2018 (5) Gout attack: Status: Acute Qualifiers: Gout site: ankle Laterality: left Qualified Code(s): M10.272 - Drug-induced gout, left ankle and foot (6) Smoker: Status: Acute (7) Sleep apnea syndrome: Status: Acute Reason for Visit Reason for Visit: Reason For Visit: DEFIBULATER Hospital Course Discharge Summary: 64 year old female woman with past medical history of coronary artery disease status post RCA stent, H/o ischemic cardiomyopathy with last known left ventricular ejection fraction of 30% in January 2019, status post dual-chamber ICD placement in 2012 and generator change in May 2018, history of ventricular arrhythmia status post AICD discharge in January 2019 hypertension, dyslipidemia, obesity, chronic obstructive pulmonary disease, and obstructive sleep apnea on BiPAP at night presented with chief complaint of ICD firing. In her hospitalization in January 2019, she underwent stress test which showed ronnie-infarct ischemia in inferior wall. Coronary angiogram was offered to her and at that point she wanted to think about it and discussed with Dr. Saldaña. Her lisinopril was changed to Entresto and dose of metoprolol was increased. Her device was interrogated ([employer] AAIR/DDDR 60/130/120). 1 episode of ventricular tachycardia at 290 ms with aborted charging due to successful antitachycardia pacing at 1:14 AM. No shocks. She then underwent coronary angiogram which showed that previously placed RCA stents were widely patent and no left coronary disease. She is being discharged in stable condition on her usual home medication with advise to follow as outaptient with Dr. saldaña for further treatment options. Physical Exam Const: COMMON NORMALS: no apparent distress and oriented x3 Resp: COMMON NORMALS: normal respiratory effort, no retractions, no use of accessory muscles, clear to auscultation bilaterally and percussion normal AUSCULTATION: clear to auscultation bilaterally PERCUSSION: percussion normal Cardio: COMMON NORMALS: regular rate, regular rhythm, S1 normal heart sound and S2 normal heart sound RATE: regular rate RHYTHM: regular rhythm HEART SOUNDS: S1 normal and S2 normal GI: COMMON NORMALS: normal to inspection, nondistended, normoactive bowel sounds, soft to palpation, non-tender, no hepatosplenomegaly, no masses and no bruits PALPATION: Yes soft and Yes no hepatosplenomegaly Neuro: COMMON NORMALS: oriented x3 and no focal motor deficits Discharge Data Data Completed and Pending: Completed Studies During Hospitalization Category Date Time Status FILTER CLEANER request for service Routin e Exams 04/16/19 Completed XR chest 1V gracie ble [id number] Urgent Exams 04/15/19 00:04 Completed Vitals: Last Vital Signs Temp 98.0 F 04/17/19 13:28 Pulse 61 04/17/19 15:28 Resp 17 04/17/19 15:28 BP 111/52 04/17/19 15:28 Pulse Ox 94 04/17/19 15:28 Discharge Plan Discharge Patient Disposition: Home, Self-Care Condition: Stable Prescriptions: New metoprolol tartrate 50 mg Tablet 50 mg PO BID 30 Days Qty: 60 RF: 0 Continued furosemide 40 mg tablet 40 mg PO BID RF: 0 clopidogrel 75 mg tablet 75 mg PO DAILY RF: 0 spironolactone 25 mg tablet 25 mg PO DAILY RF: 0 potassium chloride 20 mEq tablet,ER particles/crystals 20 meq PO BID RF: 0 gabapentin 300 mg capsule 300 mg PO TID RF: 0 allopurinol 300 mg tablet 300 mg PO DAILY RF: 0 rosuvastatin 10 mg tablet 10 mg PO DAILY RF: 0 Symbicort 160-4.5 mcg/actuation HFA aerosol inhaler 2 puff INHALATION BID RF: 0 levocetirizine 5 mg tablet 5 mg PO DAILY RF: 0 Entresto 24-26 mg tablet 1 tab PO BID RF: 0 Atrovent HFA 17 mcg/actuation Hfa Aerosol Inhaler 2 puff INHALATION QID RF: 0 nitroglycerin [Nitrostat] 0.4 mg Tablet, Sublingual 0.4 mg sublingual PRN RF: 0 ranitidine HCl 75 mg PO DAILY RF: 0 omega-3 fatty acids 1,000 mg 4,000 mg PO DAILY RF: 0 aspirin 81 mg 81 mg PO DAILY RF: 0 magnesium oxide 250 mg 250 mg PO DAILY RF: 0 multivitamin 1 tablet 1 tab PO DAILY RF: 0 Vitamin C 500 mg 500 mg PO DAILY RF: 0 albuterol sulfate RF: 0 Discontinued metoprolol tartrate 25 mg tablet 25 mg PO BID RF: 0 Discharge Orders: Discharge Order (Routine); Ordered 04/17/19 Ordered By: Pearl Stanley Referrals: Lee Saldaña MD [Physician] - 1 month (You have a cardiology followup with Dr. Saldaña at [facility] [place] [facility] [place] [facility] on June 17 at 9:45am. Any appointment changes, please call them at [phone]) Hermila Medrano FNP [Nurse Practitioner] - 1 week (You have a followup appointment to check your surgery site at [facility] [place] [place] [facility] [place] [facility] with CHETNA Purvis on , April 23 at 10:15am. Any appointment changes, please call them at [phone]) Discharge Diet: Usual diet Discharge Activity: Resume usual activity Patient Instructions: Metoprolol (By mouth), Left Heart Catheterization (DC), Sleep Apnea Syndrome (DC), Cigarette Smoking and Your Health (GEN), Coronary Artery Disease in Women (DC) Discharge Date/Time: 04/17/19 16:10 Discharge Attestations Time Spent in Discharge Care*: greater than 30 min Quality Metrics Clinical Quality Measures During this hospital stay, did patient experience: None Coding Level of Care Code Acute Furniture Arranger for Chg Fwd Diagnoses AICD discharge Z45.02 Reduced ejection fraction concurrent with and due to acute heart failure I50.21 Coronary artery disease I25.10; I25.84 Coronary Disease-Associated Artery/Lesion type: due to calcified coronary lesion AICD (automatic cardioverter/defibrillator) present Z95.810 Gout attack M10.272 Gout site: ankle Laterality: left Smoker F17.200 Sleep apnea syndrome G47.30
== END 2019-04-17 16:10 | disposition home or self-care (01) | DRG 286 ==
LOC: ER 04-15 01:36 → CSU 04-15 02:31
PROVIDERS: Internal Medicine Cardiovascular Disease; Student in an Organized Health Care Education/Training Program; Admitting Provider Internal Medicine; Emergency Provider Emergency Medicine; Family Provider Physician Assistant; PCP Physician Assistant; Visit Provider Internal Medicine
PROC: 4A023N7 Measurement of Cardiac Sampling and Pressure, Left Heart, Percutaneous Approach (ICD-10-PCS; principal; 2019-04-16 08:25)
DX: I47.2 Ventricular tachycardia (principal); I50.21 Acute systolic (congestive) heart failure; N17.9 Acute kidney failure, unspecified; Z68.41 Body mass index [BMI] 40.0-44.9, adult; Z45.02 Encounter for adjustment and management of automatic implantable cardiac defibrillator; M10.272 Drug-induced gout, left ankle and foot; M19.90 Unspecified osteoarthritis, unspecified site; M54.9 Dorsalgia, unspecified; J44.9 Chronic obstructive pulmonary disease, unspecified; I25.10 Atherosclerotic heart disease of native coronary artery without angina pectoris; Z95.5 Presence of coronary angioplasty implant and graft; F32.9 Major depressive disorder, single episode, unspecified; E78.5 Hyperlipidemia, unspecified; G62.9 Polyneuropathy, unspecified; F17.210 Nicotine dependence, cigarettes, uncomplicated; I25.2 Old myocardial infarction; Z99.81 Dependence on supplemental oxygen; G47.33 Obstructive sleep apnea (adult) (pediatric); I11.0 Hypertensive heart disease with heart failure; I25.5 Ischemic cardiomyopathy; E66.9 Obesity, unspecified
CPT/HCPCS: 36415; 71045; 71046; 80048; 80053; 81003; 83735; 83880; 84484; 85025; 85610; 93005; 93452; 94640; 96360; 96361; 96372; 99281; C1769; C1887; C1894; G0378; J1644; J1940; J2250; J3010; J7030; J7512; Q0163; Q9967

== ENCOUNTER → 2019-04-23 09:18 | Outpatient (BNVA) | payer MEDICARE, MEDICAID, SELFPAY | PROVIDERS: Family Provider Physician Assistant; PCP Physician Assistant; Visit Provider Nurse Practitioner Family | DX: Z09 Encounter for follow-up examination after completed treatment for conditions other than malignant neoplasm (principal) | CPT/HCPCS: 80048 ==

== ENCOUNTER → 2019-06-18 10:18 | Outpatient (BNVA) | payer MEDICARE, MEDICAID, SELFPAY | PROVIDERS: Family Provider Physician Assistant; PCP Physician Assistant; Visit Provider Internal Medicine Cardiovascular Disease | DX: I50.43 Acute on chronic combined systolic (congestive) and diastolic (congestive) heart failure (principal); R06.02 Shortness of breath; Z45.02 Encounter for adjustment and management of automatic implantable cardiac defibrillator; I48.20 Chronic atrial fibrillation, unspecified; G47.33 Obstructive sleep apnea (adult) (pediatric); I25.5 Ischemic cardiomyopathy; Z95.810 Presence of automatic (implantable) cardiac defibrillator; I25.118 Atherosclerotic heart disease of native coronary artery with other forms of angina pectoris; F17.200 Nicotine dependence, unspecified, uncomplicated | CPT/HCPCS: 80048; 83880 ==

== ENCOUNTER → 2019-06-24 08:42 | Outpatient (BNVA) | payer MEDICARE, MEDICAID, SELFPAY | PROVIDERS: Family Provider Physician Assistant; PCP Physician Assistant; Visit Provider Internal Medicine Rheumatology | DX: M10.9 Gout, unspecified (principal); Z79.899 Other long term (current) drug therapy; M67.911 Unspecified disorder of synovium and tendon, right shoulder; M15.0 Primary generalized (osteo)arthritis; Z71.3 Dietary counseling and surveillance | CPT/HCPCS: 36415; 80076; 84550; 85025; 99214 ==

== ENCOUNTER → 2019-06-24 09:43 | Outpatient (BNVA) | payer MEDICARE, MEDICAID, SELFPAY | PROVIDERS: Family Provider Physician Assistant; PCP Physician Assistant; Visit Provider Internal Medicine Rheumatology | DX: M10.9 Gout, unspecified (principal); Z79.899 Other long term (current) drug therapy; Z71.3 Dietary counseling and surveillance; M67.911 Unspecified disorder of synovium and tendon, right shoulder; M15.0 Primary generalized (osteo)arthritis | CPT/HCPCS: 85025 ==

== ENCOUNTER → 2019-09-09 11:00 | Outpatient (BNVA) | payer MEDICARE, MEDICAID, SELFPAY | PROVIDERS: Family Provider Physician Assistant; PCP Physician Assistant; Visit Provider Internal Medicine Cardiovascular Disease | DX: I50.43 Acute on chronic combined systolic (congestive) and diastolic (congestive) heart failure (principal); R06.02 Shortness of breath; E78.2 Mixed hyperlipidemia; E78.5 Hyperlipidemia, unspecified; I25.5 Ischemic cardiomyopathy; Z95.810 Presence of automatic (implantable) cardiac defibrillator; I25.118 Atherosclerotic heart disease of native coronary artery with other forms of angina pectoris; G47.33 Obstructive sleep apnea (adult) (pediatric); I48.20 Chronic atrial fibrillation, unspecified | CPT/HCPCS: 80048; 80061; 80076; 83880 ==

== ENCOUNTER → 2019-09-28 08:43 | Outpatient (BNVA) | payer MEDICARE, MEDICAID, SELFPAY | PROVIDERS: Family Provider Physician Assistant; PCP Physician Assistant | DX: Z79.899 Other long term (current) drug therapy (principal); M10.9 Gout, unspecified | CPT/HCPCS: 36415; 80076; 82565; 84550 ==

== ENCOUNTER → 2019-11-02 08:25 | Outpatient (BNVA) | payer MEDICARE, MEDICAID, SELFPAY | PROVIDERS: Family Provider Physician Assistant; PCP Physician Assistant; Visit Provider Internal Medicine Rheumatology | DX: M10.9 Gout, unspecified (principal); Z79.899 Other long term (current) drug therapy; M15.0 Primary generalized (osteo)arthritis; G89.29 Other chronic pain; M47.816 Spondylosis without myelopathy or radiculopathy, lumbar region; F17.210 Nicotine dependence, cigarettes, uncomplicated | CPT/HCPCS: 99213 ==

== ENCOUNTER → 2019-11-19 13:06 | Outpatient (BNVA) | payer MEDICARE, MEDICAID, SELFPAY | PROVIDERS: Family Provider Physician Assistant; PCP Physician Assistant; Visit Provider Internal Medicine Cardiovascular Disease | DX: I50.43 Acute on chronic combined systolic (congestive) and diastolic (congestive) heart failure (principal); R06.02 Shortness of breath; E78.2 Mixed hyperlipidemia; I25.5 Ischemic cardiomyopathy; Z95.810 Presence of automatic (implantable) cardiac defibrillator; I25.118 Atherosclerotic heart disease of native coronary artery with other forms of angina pectoris | CPT/HCPCS: 80048; 83880 ==

== ENCOUNTER 2020-02-10 08:32 | Outpatient (CLI) | payer MEDICARE, MEDICAID, SELFPAY ==
--- NOTE | 2020-02-10 08:37 | MM_ITS ---
WS: [id number] BILATERAL DIGITAL SCREENING MAMMOGRAPHY WITH CAD CLINICAL INFORMATION: SCREENING HISTORY: Screening mammogram. No current complaints. COMPARISON: TECHNIQUE: Bilateral CC and MLO views. FINDINGS: Scattered fibroglandular densities bilaterally. No suspicious focal mass, asymmetry, calcifications, or architectural distortion. No evidence of malignancy. Punctate and vascular calcifications. A few i ntramammary lymph nodes. MM/[place] [id number] IMPRESSION: BI-RADS: 2-Benign FOLLOW UP: 1 Year Follow-up Recommend return to annual screening mammography.
== END 2020-02-10 08:33 | disposition home or self-care (01) ==
LOC: RADSHAW 08:35
PROVIDERS: PCP Physician Assistant; Visit Provider Physician Assistant
DX: Z12.31 Encounter for screening mammogram for malignant neoplasm of breast (principal)
CPT/HCPCS: 77067

== ENCOUNTER → 2020-03-16 10:21 | Outpatient (BNVA) | payer MEDICARE, MEDICAID, SELFPAY | PROVIDERS: PCP Physician Assistant; Visit Provider Internal Medicine Cardiovascular Disease | DX: R06.02 Shortness of breath (principal); E78.2 Mixed hyperlipidemia; I25.5 Ischemic cardiomyopathy; Z95.810 Presence of automatic (implantable) cardiac defibrillator; I25.110 Atherosclerotic heart disease of native coronary artery with unstable angina pectoris; I50.43 Acute on chronic combined systolic (congestive) and diastolic (congestive) heart failure | CPT/HCPCS: 80048; 80061; 83880 ==

== ENCOUNTER → 2020-05-04 08:25 | Outpatient (BNVA) | payer MEDICARE, MEDICAID, SELFPAY | PROVIDERS: Family Provider Physician Assistant; PCP Physician Assistant; Visit Provider Internal Medicine Rheumatology | DX: M10.9 Gout, unspecified (principal); Z79.899 Other long term (current) drug therapy; M15.0 Primary generalized (osteo)arthritis; M47.816 Spondylosis without myelopathy or radiculopathy, lumbar region; W19.XXXA Unspecified fall, initial encounter; F17.210 Nicotine dependence, cigarettes, uncomplicated | CPT/HCPCS: 36415; 80076; 85025; 99214 ==

== ENCOUNTER → 2020-05-19 08:55 | Outpatient (BNVA) | payer MEDICARE, MEDICAID, SELFPAY | PROVIDERS: Family Provider Physician Assistant; PCP Physician Assistant; Referring Provider Internal Medicine Rheumatology; Visit Provider Orthopaedic Surgery | DX: M47.816 Spondylosis without myelopathy or radiculopathy, lumbar region (principal); M47.896 Other spondylosis, lumbar region | CPT/HCPCS: 72110 ==

== ENCOUNTER → 2020-06-15 11:15 | Outpatient (BNVA) | payer MEDICARE, MEDICAID, SELFPAY | PROVIDERS: PCP Physician Assistant; Visit Provider Internal Medicine Cardiovascular Disease | DX: I50.43 Acute on chronic combined systolic (congestive) and diastolic (congestive) heart failure (principal); R06.02 Shortness of breath; E78.2 Mixed hyperlipidemia; E78.5 Hyperlipidemia, unspecified; I25.5 Ischemic cardiomyopathy; Z95.810 Presence of automatic (implantable) cardiac defibrillator; I25.118 Atherosclerotic heart disease of native coronary artery with other forms of angina pectoris; I25.110 Atherosclerotic heart disease of native coronary artery with unstable angina pectoris | CPT/HCPCS: 80048; 83880 ==

== ENCOUNTER 2020-08-09 17:31 | Inpatient (IN) | payer MEDICARE, MEDICAID, SELFPAY ==
[2020-08-09] VITALS (15 sets, daily range): BP systolic 89–118; BP diastolic 52–82; PULSE 60–71; RESP 12–27; TEMP 36.6; O2SAT 94–100; BMI 33.7
--- NOTE | 2020-08-09 17:45 | ECG_ITS ---
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 Measurements Intervals [place] Rate: 61 P: 68 LA: 217 QRS: -16 QRSD: 133 T: 98 QT: 407 QTc: 412 Interpretive Statements SINUS RHYTHM WITH FIRST DEGREE AV BLOCK INTRAVENTRICULAR CONDUCTION DELAY [130+ ms QRS DURATION] POSSIBLE INFERIOR MYOCARDIAL INFARCTION , OF INDETERMINATE AGE [30 ms Q WAVE IN II/aVF] ANTEROLATERAL MYOCARDIAL INFARCTION , PROBABLY RECENT Compared to ECG 04/15/2019 15:29:34 First degree AV block now present Intraventricular conduction delay now present Myocardial infarct finding still present Electronically Signed On 08-09-2020 21:15:10 CDT by Lidia Corona M.D. [id number] f
--- NOTE | 2020-08-09 17:45 | XR_ITS ---
WS: [id number] Exam: XR chest 1V portable [id number] Date/Time of Exam: 08/09/2020 6:07 PM Reason For Exam: CP Comparison 04/15/2019. The lungs are fully expanded and clear. Mild cardiac enlargement unchanged. A permanent cardiac pacer superimposes the left chest. No pleural effusions. Regional bony elements are unremarkable. XR/XR chest 1V portable [id number] IMPRESSION: 1. Mild cardiac enlargement. No acute process noted.
--- NOTE | 2020-08-09 17:51 | ED_ITS ---
HPI - Arrhythmia/Palpitations General: Chief Complaint: Arrhythmia/Palpitations Stated Complaint: CHEST PAIN Time Seen by Provider: 08/09/20 17:45 Source: patient Mode of arrival: ambulatory Limitations: no limitations History of Present Illness: HPI narrative: Mrs. White is a 65-year-old female patient with a history of congestive heart failure with EF of 30%, status post AICD placement, ventricular arrhythmias, presented to the hospital today with complaints of feeling unwell. She states that she thinks her AICD has fired several times today. She has had episodes of severe weakness, shortness of breath and momentary loss of consciousness episodes. She thinks that this is secondary to the AICD firing. She denies any chest pain and denies any shortness of breath at this time. Her current complaint is extreme weakness. Associated symptoms: Reports pre-syncope and short of breath; Deny anxiety, cough, diaphoresis, muscle cramps, nausea, paresthesias, sense of impending doom, syncope or vomiting Review of Systems General: Reports: 10 or more systems reviewed and unremarkable except in HPI and below Const: Denies: diaphoresis Card: Reports: pre-syncope; Denies: syncope GI: Denies: nausea or vomiting Musc: Denies: muscle cramps Psych: Denies: anxiety PFSH ED PFSH: Medical History AICD discharge Arthritis Asthma Atherosclerotic heart disease of [place] coronary artery with other forms of angina pectoris Cardiac cath in April 2019 revealed No significant disease noted in the Left Main, LAD, Circumflex, or RCA coronary arteries. The right coronary artery was extensively stented with the patent stents. LVEDP was 13 mmHg. LV gram was not performed because of theabnormal kidney function Atherosclerotic heart disease of [place] coronary artery with unstable angina pectoris Back pain Cardiomyopathy Chronic episodic atrial fibrillation Pt has massive GI bleed and is not wanting to take oral anticoagulant COPD (chronic obstructive pulmonary disease) Coronary artery disease Degenerative joint disease (DJD) of lumbar spine Depression Dyslipidemia Fall Gout Gout, arthritis H/O coronary angiogram Showed patent stented segment of RCA with diffuse disease in other vessels High risk medication use Ischemic cardiomyopathy with implantable cardioverter-defibrillator (ICD) Mixed hyperlipidemia Neuropathy Osteoarthritis Oxygen dependent Sleep apnea uses Bipap at night with 2 L o2 Sleep apnea with mood disorder Smoking Tendinopathy of rotator cuff Surgical History AICD (automatic cardioverter/defibrillator) present ICD placement in 2012 with generator change [address] Dr. Boucher on 05/21/2018 History of appendectomy History of tubal ligation Hx of tonsillectomy Family History Father Hypertension CAD (coronary artery disease) Mother Diabetes CAD (coronary artery disease) Cancer Lung disease Brother No problems noted. Sister Cancer Dementia Diabetes Family/Other CAD (coronary artery disease) Cancer Diabetes Father No problems noted. Grandmother CAD (coronary artery disease) Cancer Lung disease Grandfather CAD (coronary artery disease) Other Stroke Denies family history of Rheumatoid arthritis Lupus Clotting disorder Chronic kidney disease (CKD) Suicide Anesthesia complication Bleeding disorder Social History Smoking and tobacco status: current every day smoker cigarettes Alcohol intake: never Lives independently: Yes Marital status: / Physical Exam Const: COMMON NORMALS: no acute distress, average body habitus, patient oriented x3, no limitations, healthy appearing, alert and well nourished HENMT: COMMON NORMALS: normocephalic, atraumatic and moist oral mucous membranes HEAD & SCALP: normocephalic and atraumatic Neck/C-Spine: COMMON NORMALS: no meningeal signs and no JVD Resp: COMMON NORMALS: normal respiratory effort, No retractions, No use of accessory muscles, clear to auscultation bilaterally and percussion normal AUSCULTATION: clear to auscultation bilaterally PERCUSSION: percussion normal Cardio: COMMON NORMALS: no JVD, regular rate, regular rhythm, S1 normal heart sound present, S2 normal heart sound present, No gallops present (Cardio), No clicks present (Cardio), No murmurs present (Cardio), No rub (Cardio) and Peripheral pulses 2+ throughout RATE: regular rate RHYTHM: regular rhythm HEART SOUNDS: S1 normal heart sound present and S2 normal heart sound present PERIPHERAL PULSES: Peripheral pulses 2+ throughout GI: COMMON NORMALS: Normal to inspection, nondistended, normoactive bowel sounds present, Soft to palpation, non-tender, No hepatosplenomegaly present, no masses and no bruits PALPATION: Yes Soft to palpation and Yes No hepatosplenomegaly present Extremity: COMMON NORMALS: normal to inspection, full ROM, capillary refill normal, no calf tenderness and no pedal edema Neuro: COMMON NORMALS: patient oriented x3 SENSORIUM/ORIENTATION: Yes alert MENINGEAL SIGNS: Yes no meningeal signs Course Consultations: Consultation #1: Discussed the patient with Dr. Davis, yam curer on-call. He advised that because she had multiple episodes of V. tach she probably should be observed overnight. We can admit to the hospital ist. Time: 19:14 Consultation #2: Discussed the patient with Dr. Santana, hospitalist and he kindly accepted patient to his service. Time: 19:28 Vital Signs: Vital signs: Vital Signs Pulse Rate 62 08/09/20 19:17 Respiratory Rate 16 08/09/20 19:17 Blood Pressure 109/82 08/09/20 19:17 Pulse Oximetry 96 08/09/20 19:17 MDM - Arrhythmia/Palpitations MDM Narrative: Medical decision making narrative: 65-year-old female patient with a history of CHF with reduced ejection fraction, AICD who had 2 episodes of defibrillation from her AICD for ventricular tachycardia. Electrolytes are unremarkable and she does not appear to be in CHF exacerbation. After discussion with the yam curer she will be admitted to the hospital because there is no obvious etiology he will perform cardiac catheterization on her tomorrow. Medical Records: Attestation: I reviewed the patient's medical records. Lab Data: Attestation: I reviewed the patient's lab results. Labs: Lab Results 08/09/20 08/09/20 08/09/20 Range/Units 17:50 17:50 17:50 WBC 7.6 (4.0-10.0) 10^3/ uL RBC 3.77 L (4.1-5.3) 10^6/u L Hgb 12.0 (11.5-15.3) g/dL Hct 36.9 L (37.0-47.0) % MCV 97.9 (81-99) fL MCH 31.8 (28.0-34.0) pg MCHC 32.5 (30.0-36.0) g/dL RDW 14.3 (12.1-15.1) % Plt Count 193 (130-400) 10^3/c mm MPV 11.6 H (7.4-10.4) fL Neut % (Auto) 55.1 % Lymph % (Auto) 36.1 % [place] % (Auto) 6.7 % Eos % (Auto) 1.2 % Baso % (Auto) 0.4 % Neut # (Auto) 4.18 (1.8-7.7) 10^3/u L Lymph # (Auto) 2.7 (0.8-4.8) 10^3/u L [place] # (Auto) 0.5 (0.2-0.9) 10^3/u L Eos # (Auto) 0.1 (0.0-0.8) 10^3/u L Baso # (Auto) 0.0 (0.0-0.1) 10^3/u L Nucleated RBC % (a uto) 0 % Nucleated RBCs # 0.0 /100WBC PT (12.1-14.9) SECO NDS INR (0.8-1.2) D-Dimer (0-0.59) ug/mIFE U Sodium 138 (136-145) mmol/L Potassium 3.9 (3.5-5.1) mmol/L Chloride 104 (98-107) mmol/L Carbon Dioxide 22 (22-29) mmol/L Anion Gap 15.9 (5-19) BUN 32 H (8-23) mg/dL Creatinine 1.0 H (0.5-0.9) mg/dL GFR Calculation 55.6 L (90-130) mL/min Glucose 141 H (65-115) mg/dL Calculated Osmolal ity 295 (285-295) mOsm/k g Calcium 8.3 L (8.5-10.5) mg/dL Total Bilirubin 0.2 (0.15-1.2) mg/dL AST 14 (0-32) U/L ALT 12 (0-33) U/L Alkaline Phosphata se 73 (35-105) IU/L Troponin T Baselin e 19 H (0-10) ng/L NT-Pro-B Natriuret Pep 331 H (0-125) pg/mL Total Protein 5.8 L (6.6-8.7) g/dL Albumin 3.6 (3.5-5.2) g/dL Globulin 2.2 (1.3-4.6) g/dL Lipase 24 (13-60) U/L 08/09/20 Range/Units 19:00 WBC (4.0-10.0) 10^3/ uL RBC (4.1-5.3) 10^6/u L Hgb (11.5-15.3) g/dL Hct (37.0-47.0) % MCV (81-99) fL MCH (28.0-34.0) pg MCHC (30.0-36.0) g/dL RDW (12.1-15.1) % Plt Count (130-400) 10^3/c mm MPV (7.4-10.4) fL Neut % (Auto) % Lymph % (Auto) % [place] % (Auto) % Eos % (Auto) % Baso % (Auto) % Neut # (Auto) (1.8-7.7) 10^3/u L Lymph # (Auto) (0.8-4.8) 10^3/u L [place] # (Auto) (0.2-0.9) 10^3/u L Eos # (Auto) (0.0-0.8) 10^3/u L Baso # (Auto) (0.0-0.1) 10^3/u L Nucleated RBC % (a uto) % Nucleated RBCs # /100WBC PT 12.60 (12.1-14.9) SECO NDS INR 0.92 (0.8-1.2) D-Dimer 1.56 H (0-0.59) ug/mIFE U Sodium (136-145) mmol/L Potassium (3.5-5.1) mmol/L Chloride (98-107) mmol/L Carbon Dioxide (22-29) mmol/L Anion Gap (5-19) BUN (8-23) mg/dL Creatinine (0.5-0.9) mg/dL GFR Calculation (90-130) mL/min Glucose (65-115) mg/dL Calculated Osmolal ity (285-295) mOsm/k g Calcium (8.5-10.5) mg/dL Total Bilirubin (0.15-1.2) mg/dL AST (0-32) U/L ALT (0-33) U/L Alkaline Phosphata se (35-105) IU/L Troponin T Baselin e (0-10) ng/L NT-Pro-B Natriuret Pep (0-125) pg/mL Total Protein (6.6-8.7) g/dL Albumin (3.5-5.2) g/dL Globulin (1.3-4.6) g/dL Lipase (13-60) U/L EKG Data^: EKG 1: Attestation: I personally reviewed and interpreted this EKG as follows: EKG interpretation date: 08/09/20 EKG interpretation time: 17:51 Prior EKG tracings: available for review Interpretation: Sinus rhythm with first-degree AV block. Heart rate 61 bpm. Intraventricular conduction delay. ST elevation in V5, V6 but is unchanged from EKG of 04/15/2019 Discharge Plan Discharge Patient Disposition: Admitted As Inpatient Admit Provider: Virgilio Santana Clinical Impression: Ventricular tachycardia, AICD discharge Condition: Stable Coding Level of Care Code ED Call Or Contact Centre Team Leader for Chg Fwd Exam Detailed
[2020-08-09 18:13] LABS: Basophils % 0.4 %; Eosinophils # 0.1 10^3/uL (0.0-0.8); Eosinophils % 1.2 %; Hematocrit 36.9 % (37.0-47.0); Lymphocytes # 2.7 10^3/uL (0.8-4.8); Lymphocytes % 36.1 %; Mean Corpuscular HGB Conc 32.5 g/dL (30.0-36.0); Mean Corpuscular Hemoglobin 31.8 pg (28.0-34.0); Mean Corpuscular Volume 97.9 fL (81-99); Mean Platelet Volume 11.6 fL (7.4-10.4); Monocytes # 0.5 10^3/uL (0.2-0.9); Monocytes % 6.7 %; Neutrophils # 4.18 10^3/uL (1.8-7.7); Neutrophils % 55.1 %; Nucleated Red Blood Cells % 0 %; Platelet Count 193 10^3/cmm (130-400); Red Blood Count 3.77 10^6/uL (4.1-5.3); Red Cell Distribution Width 14.3 % (12.1-15.1); White Blood Count 7.6 10^3/uL (4.0-10.0)
[2020-08-09 18:59] LABS: Troponin(5th) Baseline 19 ng/L (0-10)
[2020-08-09 19:07] LABS: Alanine Aminotransferase 12 U/L (0-33); Albumin Level 3.6 g/dL (3.5-5.2); Alkaline Phosphatase 73 IU/L (35-105); Anion Gap 15.9 (5-19); Aspartate Amino Transferase 14 U/L (0-32); Blood Urea Nitrogen 32 mg/dL (8-23); Calcium 8.3 mg/dL (8.5-10.5); Carbon Dioxide 22 mmol/L (22-29); Chloride 104 mmol/L (98-107); Globulin 2.2 g/dL (1.3-4.6); Glomerular Filtration Rate 55.6 mL/min (90-130); Glucose 141 mg/dL (65-115); Lipase 24 U/L (13-60); NT Pro B Type Natriuretic Pept 331 pg/mL (0-125); Osmolality Calculated 295 mOsm/kg (285-295); Potassium 3.9 mmol/L (3.5-5.1); Sodium 138 mmol/L (136-145); Total Bilirubin 0.2 mg/dL (0.15-1.2); Total Protein 5.8 g/dL (6.6-8.7)
--- NOTE | 2020-08-09 19:28 | PM.HP ---
Providers/Chief Complaint Primary Care Provider: Lois Sorto Chief Complaint: CHEST PAIN History of Present Illness Amber Whtie is a 65 year old female who has history of chronic atrial fibrillation, ischemic cardiomyopathy PCI to right coronary artery multiple times in the past, mixed systolic diastolic congestive heart failure status post AICD placement(EF 30%), ICD discharge in April 2019 status post cardiac cath without any intervention(stents were patent), presented today with chief concern of her AICD firing. Patient is stating that today she was resting in her couch when he started experiencing dizziness, shortness of breath, presyncopal. She did not experience any chest pain. She noticed her AICD firing at 10 AM and 4 PM, normally with AICD firing she would experience syncopal events but this time it was not the case. She is compliant with her medications uses 2 L of oxygen at night does not tolerate CPAP very well. Diagnosis in the ER revealed Normal CBC and BMP and potassium 3.9, will check magnesium level Troponin 19 without significant delta, BNP 231, clinically does not look fluid overloaded, Pacemaker interrogation revealed ATP at 6 AM and 2 shocks delivered at 10 AM and 4 PM for V. fib 3 episodes EKG showing sinus rhythm first-degree AV block, ST elevation lateral leads however more prominent as compared to previous EKG from last year Dr. Davis saw her in the ER as well Review of Systems Const: Reports: body aches, fatigue and malaise; Denies: fever(s) Eyes: Denies: change in vision ENMT: Denies: throat pain Card: Reports: palpitations, irregular heart rhythm, lightheadedness, pre-syncope and dyspnea on exertion Resp: Reports: dyspnea GI: Denies: abdominal pain : Denies: flank pain Musc: Denies: neck pain Skin/Breast: Denies: lesions Neuro: Denies: headache(s) Psych: Reports: anxiety Endo: Denies: polyuria Mert/Lymph: Denies: easy bruising All/Imm: Denies: urticaria Medications/Allergies Home Medications Medication Instructions Recorded Confirmed Last Taken Type Atrovent HFA 2 puff INHALATION QID 04/15/19 05/19/20 Unknown History Symbicort 2 puff INHALATION BID 04/15/19 05/19/20 Unknown History gabapentin 300 mg PO TID 04/15/19 05/19/20 Unknown History levocetirizine 5 mg PO DAILY 04/15/19 05/19/20 Unknown History nitroglycerin [Nitrostat] 0.4 mg SUBLINGUAL PRN 04/15/19 05/19/20 Unknown History omega-3 fatty acids 4,000 mg PO DAILY 04/15/19 05/19/20 Unknown History furosemide 40 mg tablet 40 mg PO DAILY tab 11/02/19 05/19/20 Unknown History potassium chloride 20 mEq 20 meq PO DAILY tab 11/02/19 05/19/20 Unknown History tablet,extended release(part/cryst) clopidogrel 75 mg tablet 75 mg PO DAILY #90 tab 12/09/19 05/19/20 Unknown Rx sacubitril 97 mg-valsartan 103 mg 1 tab PO BID 30 Days #60 tab 04/18/20 05/19/20 Unknown Rx tablet allopurinol 300 mg tablet 300 mg PO DAILY #30 tab 05/04/20 05/19/20 Unknown Rx albuterol sulfate 1.25 mg INHALATION QID PRN 08/09/20 08/09/20 Unknown History ascorbic acid (vitamin C) [Vitamin 500 mg PO DAILY 08/09/20 08/09/20 08/09/20 08:00 History C] aspirin 81 mg PO DAILY 08/09/20 08/09/20 08/09/20 08:00 History magnesium oxide 250 mg PO DAILY 08/09/20 08/09/20 08/09/20 08:00 History metoprolol tartrate 50 mg PO BID 08/09/20 08/09/20 08/09/20 08:00 History multivitamin 1 tab PO DAILY 08/09/20 08/09/20 08/09/20 08:00 History rosuvastatin 10 mg PO BEDTIME 08/09/20 08/09/20 08/08/20 21:00 History spironolactone 25 mg PO DAILY 08/09/20 08/09/20 08/09/20 08:00 History Allergies Allergy/AdvReac Type Severity Reaction Status Date / Time povidone-iodine Allergy Mild Unknown Verified 06/15/20 07:50 [From Betadine] PFSH Acute PFSH: Medical History AICD discharge Arthritis Asthma Atherosclerotic heart disease of [place] coronary artery with other forms of angina pectoris Cardiac cath in April 2019 revealed No significant disease noted in the Left Main, LAD, Circumflex, or RCA coronary arteries. The right coronary artery was extensively stented with the patent stents. LVEDP was 13 mmHg. LV gram was not performed because of theabnormal kidney function Atherosclerotic heart disease of [place] coronary artery with unstable angina pectoris Back pain Cardiomyopathy Chronic episodic atrial fibrillation Pt has massive GI bleed and is not wanting to take oral anticoagulant COPD (chronic obstructive pulmonary disease) Coronary artery disease Degenerative joint disease (DJD) of lumbar spine Depression Dyslipidemia Fall Gout Gout, arthritis H/O coronary angiogram Showed patent stented segment of RCA with diffuse disease in other vessels High risk medication use Ischemic cardiomyopathy with implantable cardioverter-defibrillator (ICD) Mixed hyperlipidemia Neuropathy Osteoarthritis Oxygen dependent Sleep apnea uses Bipap at night with 2 L o2 Sleep apnea with mood disorder Smoking Tendinopathy of rotator cuff Surgical History AICD (automatic cardioverter/defibrillator) present ICD placement in 2012 with generator change [address] Dr. Boucher on 05/21/2018 History of appendectomy History of tubal ligation Hx of tonsillectomy Family History Father Hypertension CAD (coronary artery disease) Mother Diabetes CAD (coronary artery disease) Cancer Lung disease Brother No problems noted. Sister Cancer Dementia Diabetes Family/Other CAD (coronary artery disease) Cancer Diabetes Father No problems noted. Grandmother CAD (coronary artery disease) Cancer Lung disease Grandfather CAD (coronary artery disease) Other Stroke Denies family history of Rheumatoid arthritis Lupus Clotting disorder Chronic kidney disease (CKD) Suicide Anesthesia complication Bleeding disorder Social History Smoking and tobacco status: current every day smoker cigarettes Alcohol intake: never Lives independently: Yes Marital status: / Vitals/I&O/Wt Last Vital Signs Pulse 62 08/09/20 19:17 Resp 16 08/09/20 19:17 BP 109/82 08/09/20 19:17 Pulse Ox 96 08/09/20 19:17 Weight last 48 hrs Weight 106.594 kg Physical Exam Narrative: EXAM NARRATIVE: Very anxious middle-age female Sitting at the bedside saturating well on 2 L nasal cannula Map 65mmhg No active chest pain or acute shortness of breath Variable S1-S2, no audible hear any murmur no active signs of fluid overload Abdomen soft nontender Lower extremity no edema gangrene ulcer No neurological deficit Anxious mood No joint swelling No skin changes of ischemia gangrene or cellulitis Alert oriented x3 GCS 15 Data : 08/09/20 17:50 08/09/20 17:50 A&P Assessment and plan (1) AICD discharge: Status: Acute (2) Gout, arthritis: Status: Acute (3) Ischemic cardiomyopathy with implantable cardioverter-defibrillator (ICD): Status: Acute (4) Combined systolic and diastolic heart failure: Status: Chronic Qualifiers: Heart failure chronicity: acute on chronic Qualified Code(s): I50.43 - Acute on chronic combined systolic (congestive) and diastolic (congestive) heart failure (5) Sleep apnea syndrome: Status: Chronic Qualifiers: Sleep apnea type: obstructive Qualified Code(s): G47.33 - Obstructive sleep apnea (adult) (pediatric) (6) Smoker: Status: Acute (7) Oxygen dependent: Status: Acute (8) COPD (chronic obstructive pulmonary disease): Status: Chronic Additional A&P Information AICD discharge for V. fib AICD interrogation report scanned in the system 3 episodes of V. fib 6 AM, 10 AM and 4 PM, 2 shocks were delivered at 10 AM and 4 PM, at 6 AM ATP Potassium slightly low 3.9 will give her 40 mEq p.o. potassium replacement I will give her 1 g of magnesium, check magnesium level Keep her n.p.o. after midnight for cardiac cath in the morning Currently saturating well on 2 L nasal cannula EKG showed concerning changes, no active chest pain troponin not significantly high, evaluated by Dr. Davis in the ER Ischemic cardiomyopathy without acute exacerbation of congestive heart failure: Looks compensated we will continue Lasix 40 mg for now, no clinical signs of fluid overload Sleep apnea: Uses 2 L of oxygen at night does not want to use CPAP at all Gout: No acute flare continue allopurinol with Lasix for now Full code DVT prophylaxis Lovenox N.p.o. after midnight Attestations Medical Necessity Statement*: Anticipating stay in the hospital cross more than 2 midnights for V. fib/AICD firing, will need cardiac Time Spent in Patient Care: (>than 50% of time spent in counselling and/or direct pt care on unit). 35mins Coding Level of Care Code Acute Can Slider for Chg Fwd Diagnoses AICD discharge Z45.02 Gout, arthritis M10.9 Ischemic cardiomyopathy with implantable cardioverter-defibrillator (ICD) I25.5; Z95.810 Combined systolic and diastolic heart failure I50.43 Heart failure chronicity: acute on chronic Sleep apnea syndrome G47.33 Sleep apnea type: obstructive Smoker F17.200 Oxygen dependent Z99.81 COPD (chronic obstructive pulmonary disease) J44.9
[2020-08-09 19:29] LABS: INR 0.92 (0.8-1.2)
[2020-08-09 19:32] LABS: D Dimer 1.56 ug/mIFEU (0-0.59)
[2020-08-09 20:34] LABS: Troponin 5 2HR 21.12 ng/L (0-10); Troponin 5 2HR Delta 2.12 ABS# (0-10)
--- NOTE | 2020-08-09 21:54 | PC.NURSE ---
Patient does not have any complains of pain at this time and is not in any distress. Patient has been oriented to her room and has call light within reach. Patient was educated that visiting hours are 8 am to 8 pm. Patient stated my son WILL be here before I go to my procedure at 6. My son is a preacher and I want him to pray over me. Dr. Santana notified and given privilege to allow son to come in before the patient goes to her procedure.
[2020-08-09] MEDS: potassium chloride ER 20 mEq Tablet 40 MEQ PO (22:17)
[2020-08-09] MEDS: gabapentin 300 mg Capsule PO (22:17)
[2020-08-09] MEDS: sacubitril/valsartan 24-26 mg Tablet 4 EACH PO (22:17)
[2020-08-09] MEDS: metoprolol tartrate 50 mg Tablet PO (22:17)
[2020-08-09] MEDS: enoxaparin 40 mg/0.4 mL Syringe SUBCUT (22:18)
--- NOTE | 2020-08-09 22:30 | PC.NURSE ---
Patient stated to nurse this is hospital is so cheap, all they have is styrofoam cups. At other hospitals, they have a place on the TV to plug your cell phone into. All you have for me to eat is a dry sandwhich? Patient was listed options for snacks that we have in the fridge. Patient chose a sandwhich out of the options an was given a sandwhich with mustard and icecream.
--- NOTE | 2020-08-09 23:45 | ECG_ITS ---
[facility] Test Date: 2020-08-10 Pat Name: Amebr White Department: Room: 102 Gender: Female Pelota Maker: : [id number] Requested By: Rosalio Nichols I Order Number: [id number] Reading MD: Ba Davis M.D. Measurements Intervals [place] Rate: 66 P: 107 MO: 277 QRS: -3 QRSD: 111 T: 115 QT: 397 QTc: 417 Interpretive Statements ELECTRONIC ATRIAL PACEMAKER LOW QRS VOLTAGE IN EXTREMITY LEADS [QRS DEFLECTION < 0.5 mV IN LIMB LEADS] POSSIBLE ANTERIOR MYOCARDIAL INFARCTION [30 ms Q WAVE IN V3/V4, OR R < 0.2 mV IN V4], OF INDETERMINATE AGE POSSIBLE INFERIOR MYOCARDIAL INFARCTION [30 ms Q WAVE IN II/aVF], OF INDETERMINATE AGE INTERPRETATION BASED ON A DEFAULT AGE OF 40 YEARS Compared to ECG 08/09/2020 17:51:30 Low QRS voltage now present Sinus rhythm no longer present First degree AV block no longer present Intraventricular conduction delay no longer present Electronically Signed On 08-10-2020 18:30:12 CDT by Ba Davis M.D. [id number]
--- NOTE | 2020-08-09 23:52 | P.CONIM_ITS ---
Providers/Reason For Consult Consulting Physican/Specialty*: Ba Davis MD/Cardiology Reason for Consult*: ICD firing Requesting Physcian: Dr Nichols Attending Physician: Virgilio Santana MD Primary Care Provider: Lois Sorto History of Present Illness History of Present Illness Amber White is a 65 year old female who has history of chronic atrial fibrillation, ischemic cardiomyopathy PCI to right coronary artery multiple times in the past, mixed systolic diastolic congestive heart failure status post AICD placement (EF 30%), ICD discharge in April 2019 status post cardiac cath without any intervention(stents were patent), presented with chief concern of her AICD firing. Patient had presyncope, dizziness and breathing difficulty. She did not feel shock however she says even in the past she has not had felt any shocks. Denies chest pain. ICD check shows VT/V. fib and to episodes of ICD firing at around 10 AM and 4 PM. She also had multiple runs of ATP terminated VT. Her arrhythmia frequency has increased recently. Review of Systems Const: Reports: body aches, fatigue and malaise; Denies: fever(s) Eyes: Denies: change in vision ENMT: Denies: throat pain Card: Reports: palpitations, irregular heart rhythm, lightheadedness, pre- syncope and dyspnea on exertion Resp: Reports: dyspnea GI: Denies: abdominal pain : Denies: flank pain Musc: Denies: neck pain Skin/Breast: Denies: lesions Neuro: Denies: headache(s) Psych: Reports: anxiety Endo: Denies: polyuria Mert/Lymph: Denies: easy bruising All/Imm: Denies: urticaria Meds/Allergies Home Medications and Allergies Home Medications Medication Instructions Recorded Confirmed Last Taken Type Atrovent HFA 2 puff INHALATION QID 04/15/19 08/09/20 08/09/20 12:00 History budesonide-formoterol [Symbicort] 2 puff INHALATION BID 04/15/19 08/09/20 08/09/20 08:00 History gabapentin 300 mg PO TID 04/15/19 08/09/20 08/09/20 12:00 History levocetirizine 5 mg PO DAILY 04/15/19 08/09/20 08/09/20 08:00 History nitroglycerin [Nitrostat] 0.4 mg SUBLINGUAL PRN 04/15/19 08/09/20 Unknown History omega-3 fatty acids 4,000 mg PO DAILY #0 04/15/19 08/09/20 08/09/20 08:00 History furosemide 40 mg tablet 40 mg PO DAILY tab 11/02/19 08/09/20 08/09/20 08:00 History potassium chloride 20 mEq 20 meq PO DAILY tab 11/02/19 08/09/20 08/09/20 08:00 History tablet,extended release(part/cryst) clopidogrel 75 mg tablet 75 mg PO DAILY #90 tab 12/09/19 08/09/20 08/09/20 08:00 Rx sacubitril 97 mg-valsartan 103 mg 1 tab PO BID 30 Days #60 tab 04/18/20 08/09/20 08/09/20 08:00 Rx tablet allopurinol 300 mg tablet 300 mg PO DAILY #30 tab 05/04/20 08/09/20 08/09/20 08:00 Rx albuterol sulfate 1.25 mg INHALATION QID PRN 08/09/20 08/09/20 Unknown History ascorbic acid (vitamin C) [Vitamin 500 mg PO DAILY 08/09/20 08/09/20 08/09/20 08:00 History C] aspirin 81 mg PO DAILY 08/09/20 08/09/20 08/09/20 08:00 History magnesium oxide 250 mg PO DAILY 08/09/20 08/09/20 08/09/20 08:00 History metoprolol tartrate 50 mg PO BID 08/09/20 08/09/20 08/09/20 08:00 History multivitamin 1 tab PO DAILY 08/09/20 08/09/20 08/09/20 08:00 History rosuvastatin 10 mg PO BEDTIME 08/09/20 08/09/20 08/08/20 21:00 History spironolactone 25 mg PO DAILY 08/09/20 08/09/20 08/09/20 08:00 History Allergies Allergy/AdvReac Type Severity Reaction Status Date / Time povidone-iodine Allergy Mild Unknown Verified 06/15/20 07:50 [From Betadine] Current Medications Current Medications Generic Name Dose Route Start Last Admin Trade Name Freq PRN Reason Stop Dose Admin Enoxaparin Sodium 40 mg 08/09/20 20:46 08/09/20 22:18 Enoxaparin 40 Mg/0.4 Ml Syringe SUBCUT 40 mg Q24H MINGO Administration Gabapentin 300 mg 08/09/20 21:00 08/09/20 22:17 Gabapentin 300 Mg Capsule PO 300 mg TID MINGO Administration Metoprolol Tartrate 50 mg 08/09/20 22:04 08/09/20 22:17 Metoprolol Tartrate 50 Mg Tablet PO 50 mg BID MINGO Administration Sacubitril/Valsartan 4 each 08/09/20 22:00 08/09/20 22:17 Sacubitril/Valsartan 24-26 Mg Tablet PO 4 each BID MINGO Administration PFSH Acute PFSH: Medical History AICD discharge Arthritis Asthma Atherosclerotic heart disease of [place] coronary artery with other forms of angina pectoris Cardiac cath in April 2019 revealed No significant disease noted in the Left Main, LAD, Circumflex, or RCA coronary arteries. The right coronary artery was extensively stented with the patent stents. LVEDP was 13 mmHg. LV gram was not performed because of theabnormal kidney function Atherosclerotic heart disease of [place] coronary artery with unstable angina pectoris Back pain Cardiomyopathy Chronic episodic atrial fibrillation Pt has massive GI bleed and is not wanting to take oral anticoagulant COPD (chronic obstructive pulmonary disease) Coronary artery disease Degenerative joint disease (DJD) of lumbar spine Depression Dyslipidemia Fall Gout Gout, arthritis H/O coronary angiogram Showed patent stented segment of RCA with diffuse disease in other vessels High risk medication use Ischemic cardiomyopathy with implantable cardioverter-defibrillator (ICD) Mixed hyperlipidemia Neuropathy Osteoarthritis Oxygen dependent Sleep apnea uses Bipap at night with 2 L o2 Sleep apnea with mood disorder Smoking Tendinopathy of rotator cuff Surgical History AICD (automatic cardioverter/defibrillator) present ICD placement in 2012 with generator change by Dr. Boucher on 05/21/2018 History of appendectomy History of tubal ligation Hx of tonsillectomy Family History Father Hypertension CAD (coronary artery disease) Mother Diabetes CAD (coronary artery disease) Cancer Lung disease Brother No problems noted. Sister Cancer Dementia Diabetes Family/Other CAD (coronary artery disease) Cancer Diabetes Father No problems noted. Grandmother CAD (coronary artery disease) Cancer Lung disease Grandfather CAD (coronary artery disease) Other Stroke Denies family history of Rheumatoid arthritis Lupus Clotting disorder Chronic kidney disease (CKD) Suicide Anesthesia complication Bleeding disorder Social History Smoking and tobacco status: current every day smoker cigarettes Alcohol intake: never Lives independently: Yes Marital status: / Vitals/I&O/Wt Last Vital Signs Temp 98 F 08/09/20 23:17 Pulse 61 08/09/20 23:17 Resp 14 08/09/20 23:17 BP 118/52 08/09/20 23:17 Pulse Ox 100 08/09/20 23:17 08/09/20 08/09/20 08/10/20 14:59 22:59 06:59 Intake Total Balance Weight last 48 hrs Weight 235 lb Physical Exam Narrative: EXAM NARRATIVE: GENERAL: Patient is alert, awake and oriented x3. [] NECK: No jugular vein distension. [] HEENT: No cyanosis. No icterus. No pallor. [] HEART: Regular S1 and S2. No murmur, rub or gallop. [] LUNGS: Clear to auscultate bilaterally. [] ABDOMEN: Soft, nontender and nondistended. Positive bowel sounds. No guarding, rebound or tenderness. [] CENTRAL NERVOUS SYSTEM: Grossly nonfocal. [] EXTREMITIES: Lower extremities with 1+ edema bilaterally. Pulses palpable in the lower extremities, both dorsalis pedis and posterior tibial. [] A&P Assessment and plan (1) Ventricular tachycardia: Status: Acute (2) AICD discharge: Status: Acute (3) Mixed hyperlipidemia: Status: Acute (4) Chronic episodic atrial fibrillation: Status: Acute (5) Ischemic cardiomyopathy with implantable cardioverter-defibrillator (ICD): Status: Acute (6) Sleep apnea syndrome: Status: Chronic Qualifiers: Sleep apnea type: obstructive Qualified Code(s): G47.33 - Obstructive sleep apnea (adult) (pediatric) (7) COPD (chronic obstructive pulmonary disease): Status: Chronic (8) Coronary artery disease: Status: Chronic Qualifiers: Coronary Disease-Associated Artery/Lesion type: due to calcified coronary lesion Qualified Code(s): I25.10 - Atherosclerotic heart disease of [place] coronary artery without angina pectoris; I25.84 - Coronary atherosclerosis due to calcified coronary lesion Patient has ischemic cardiomyopathy and has been having multiple VT episodes leading to ICD firing. Given her significant coronary artery disease a nd multiple stents in RCA, we will proceed with coronary angiography tomorrow to rule out development of new blockages are in-stent restenosis of the old ones. Keep monitoring electrolytes with goal of potassium more than 4 and magnesium more than 2. 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 In case she does not have significant coronary stenosis, other options will be mexiletine or sotalol for rhythm control. She will eventually need consideration for VT ablation. She is not enthusiastic at this time about getting any relation procedures. Telemetry monitoring In case she develops recurrent/ VT, will need lidocaine drip and ICU transfer Thank you for involving us with the care of this patient. We will continue to follow. Please call with questions. Coding Level of Care Code Acute Rail [place] for g Fwd Diagnoses Ventricular tachycardia I47.2 AICD discharge Z45.02 Mixed hyperlipidemia E78.2 Chronic episodic atrial fibrillation I48.20 Ischemic cardiomyopathy with implantable cardioverter-defibrillator (ICD) I25.5; Z95.810 Sleep apnea syndrome G47.33 Sleep apnea type: obstructive COPD (chronic obstructive pulmonary disease) J44.9 Coronary artery disease I25.10; I25.84 Coronary Disease-Associated Artery/Lesion type: due to calcified coronary lesion
[2020-08-10] VITALS (55 sets, daily range): BP systolic 78–119; BP diastolic 26–72; PULSE 55–89; RESP 10–24; TEMP 36.6–36.8; O2SAT 95–99
[2020-08-10 00:18] LABS: Troponin 5 6HR 15.62 ng/L (0-10)
[2020-08-10 00:33] LABS: Troponin 5 6HR Delta -3.38 ng/L (0-12)
[2020-08-10 05:06] LABS: Blood Urea Nitrogen 33 mg/dL (8-23); Calcium 9.2 mg/dL (8.5-10.5); Carbon Dioxide 28 mmol/L (22-29); Chloride 103 mmol/L (98-107); Glomerular Filtration Rate 55.6 mL/min (90-130); Glucose 85 mg/dL (65-115); Osmolality Calculated 293 mOsm/kg (285-295); Sodium 138 mmol/L (136-145)
[2020-08-10] MEDS: diphenhydrAMINE 50 mg Capsule PO (05:11)
[2020-08-10] MEDS: sodium chloride 0.9% 1,000 ML 50 ML IV (05:12)
[2020-08-10 05:14] LABS: Anion Gap 11.5 (5-19); Potassium 4.5 mmol/L (3.5-5.1)
[2020-08-10 05:15] LABS: Magnesium 2.5 mg/dL (1.7-2.3)
--- NOTE | 2020-08-10 06:00 | XACV_ITS ---
Exam Room: [facility] Ht: 178 cm Wt: 107 kg BSA: 2.33 m2 Gender: Female : 1955 Any Known Allergies: Other Exam Priority: Routine Procedure(s): Procedure Description: Diagnostic procedure Procedure Description: Coronary Angiography Procedure Description: Left heart cath Procedure Description: LV gram Diagnostic Cath Status: Urgent Diagnostic Findings * RCA has patent stents. * No disease noted in the Left Main, Left Anterior Descending, Right, or Circumflex coronary arteries. * Coronary angiography shows right dominance. Conclusions 1. No disease noted in the Left Main, Left Anterior Descending, Right, or Circumflex coronary arteries. 2. Severe left ventricular systolic dysfunction. Ejection fraction of 25%. Recommendations * Transfer back to [facility]. * Tele monitoring. * Medical therapy for ventricular tachycardia. If medical therapy fails, will need VT ablation. Diagnostic RX Recommendation: medical therapy and/or counseling Ventriculography Ejection Fraction: 25.0 % Pressures Phase:Rest AO : 103 / 59 ( 76 ) @ 5:36:00 AM / ( 72 ) @ 5:43:00 AM 105 / 54 ( 76 ) @ 5:43:00 AM LV : 109 / 3 / 14 @ 5:41:00 AM Clinical Evaluation EBL: 5mL-10mL Procedural Details Pre-Procedure Time Out. Identified patient by full name and date of as verbalized by the patient/guarantor. Does the consent match the physician's order: Yes. Accurate & Complete Informed Consent: Yes. Inpatient/Outpatient History & Physical on Chart: Yes. If H&P is completed, is and addenduem needed: No; If yes, is the addendum complete: N/A. Visualize and Verify Site with Patient/Guarantor: N/A. Relevant Radiology Images available: N/A. Pre-op teaching completed and patient verbalized understanding. The risks, benefits, and alternatives of sedation and/or procedure were discussed by physician. The patient agrees to continue. Procedure started. [facility] Clinical Fraility Score: 4: Vulnerable. Security Sales Consultant Indications: Cardiac Arrhythmia, VFib. Chest Pain Symptom Assessment: Non-anginal Chest Pain. Cardiovascular Instability: No. Correct patient, site and procedure confirmed by cath team. PERRLA. Strong, equal hand senior copywriter bilaterally. Lungs clear x 5 lobes. IV Site on Arrival: 20 gauge in the left anticubital. IV Fluids: 0.9% NaCl at KVO. 0 mL infused prior to feed mill lab technician. Pre Procedural Pulses: bilateral dorsalis pedis was 3+. Pre Procedural Pulses: bilateral posterior tibial was 3+. Pre Procedural Pulses: bilateral radial was 3+. Oxygen started at 2liters/min via nasal canula. bilateral groins was prepped with chloroprep then draped in the usual sterile fashion. Physician notified. Equipment: 6F - Femoral. Cardiac Cath Pack. ACIST Manifold Kit Model BT 2000. Heparinized Saline (2 units/mL), 1000 mL bag. Kit, Micropuncture. Physician arrived. Baseline sample Acquired. HR: 62 BPM. Physician scrubbed in. Immediate Pre-Procedure Time Out. Correct Patient: Yes; Correct Procedure: Yes; Correct Site: Yes; Correct Patient Position: Yes; Correct Supplies: Yes; Dried Flammable Prep: Yes; Blood Products Available: N/A;. Lidocaine 1% infiltrated to the right groin. Lidocaine 1% infiltrated to the right groin. Arterial access obtained with micropuncture set. A 5 chilean JL4 catheter in over wire. Multiple views taken of left coronary artery. Catheter removed over the standard wire. A 5 chilean JR4 catheter in over wire. Multiple views taken of right coronary artery. Catheter removed over the standard wire. A 5 chilean Angled Pig catheter in over wire. EDP Sample taken: LV Off; HR: 0 BPM; SpO2: 97%. EDP Sample taken: LV Off; HR: 0 BPM; SpO2: 97%. EDP Sample taken: LV 109/3,14; HR: 42 BPM; SpO2: 95%. LV gram performed in JOHNSON @ 10 mL/second for a total of 30 mL. EDP Sample taken: LV Off; HR: 60 BPM; SpO2: 96%. EDP Sample taken: LV Off; HR: 0 BPM; SpO2: 95%. Pullback taken: LV Off; AO Off; Mean: , Peak to Peak: , SEP: ; HR: 26 BPM; SpO2: 96%. Catheter removed over the standard wire. Hand injection through sheath to assess for possible use of closure device. A Angio-Seal VIP ([employer]) was successful obtaining hemostatsis at the Right Femoral artery insertion site delivered by Dr Daivs. Lot #[id number]. AngioSeal placed without complications. No signs or symptoms of hematoma noted. Sterile dressing applied per usual sterile fashion. Post Procedure: Pulses reassessed and unchanged. PERRLA. Strong, equal hand senior copywriter bilaterally. No VTE prophylaxis required. Medication's Wasted: Heparin = 1000 units. Total IV fluids: 218 mL. Medication's Wasted: Other = fentanyl 50 mcg. Contrast type used: Visipaque 320 mgI/mL, 500 mL bottle. Post-op diagnosis: non obstructive CAD. Complications: none. Estimated blood loss: 5mL-10mL. Procedure completed. Patient transferred by bed to 1st floor. Vital chart was stopped. Access Site Site: Right Femoral artery Sheath Size: 6 Fr Hemostasis Method: Angio-Seal VIP ([employer]) Hemostasis Success: Successful Procedure Medications Start: 6:17 AM Stop: 6:17 AM Medication: Versed Amount: 1 mg Route: I.V. Start: 6:17 AM Stop: 6:17 AM Medication: Fentanyl Amount: 25 mcg Route: I.V. Start: 6:22 AM Stop: 6:22 AM Medication: Versed Amount: 1 mg Route: I.V. Start: 6:22 AM Stop: 6:22 AM Medication: Fentanyl Amount: 25 mcg Route: I.V. Start: 6:34 AM Stop: 6:34 AM Medication: 0.9% Saline Amount: 500 ml Route: I.V. bolus I, the attending physician, have reviewed and verified all procedure medications. Yes, all medications given per verbal order History/Risk Factors Hypertension: Yes Dyslipidemia: Yes Peripheral Arterial Disease (PAD): No Myocardial Infarction (IN): No Obesity: Yes Renal Disease: No Tobacco Use: Current/Recent(w/in 1 year) Prior Interventions PCI: Yes CABG: No Valve Surgery: No Report Signatures Finalized by Ba Davis MD on 08/23/2020 08:26 AM
--- NOTE | 2020-08-10 06:15 | W.PM.OPSUD ---
Surgery/Procedure H&P Update DATE OF PROCEDURE: August 10, 2020 DATE H&P PERFORMED: 08/09/20 H&P UPDATE INFORMATION: I have reviewed H&P completed within last 30 days, I have examined patient prior to procedure and No changes to prior documentation PREOP DIAGNOSIS: Ventricular fibrillation/ ventricular tachycardia PRIMARY INDICATION FOR PROCEDURE: Ventricular fibrillation/ ventricular tachycardia PLANNED PROCEDURE: Operation Date: 08/10/20 06:00 Proposed Procedures p Cardiac Catheterization(Not Applicable) - Ba Davis M.D Possible percutaneous coronary intervention PATIENT REASSESSED PRIOR TO SEDATION, WITH NO CHANGE NOTED: Yes PHYSICAL EXAM: alert, oriented x 3 and clear to auscultation bilaterally AIRWAY EVAL/ANESTHESIA PLAN: ASA III, Monitored Anesthesia, Local Anesthesia, Risks, benefits & alternatives of sedation and/or procedure discussed and Patient agrees to continue as planned
--- NOTE | 2020-08-10 07:00 | PC.NURSE ---
Received patient from the laboratory animal care veterinarian at 0651 am this morning. Received bedside report from TEJINDER Hall. Patient VS are stable upon arrival, no hematoma present. Dressing is intact with no bleeding present. Nurse will continue to monitor Q15min.
--- NOTE | 2020-08-10 08:33 | PC.CHAP ---
Pastoral Care Encounter/Spiritual Assessment Type of Contact [] Declined assistant professor of biochemistry visit [] Patient/Family/Request visit [] Outpatient visit [] Follow-up visit [] Physician referral [] Code/Alert [x] Routine visit [] Staff referral [] Actively dying [] Patient sleeping [] Family support [] [] Out of room [] Palliative care [] [] Receiving care in room [] Pre-surgical visit [] Trauma [] Long length of stay [] ICU visit [] Other: Relational/Emotional Strength [x] Patient feels connected with others/family/visitors/staff [] Distress [] Loneliness/isolation [] Abandonment Spirituality of Patient [x] Person of Yanni [] Attends Taoism of their Yanni [x] Believes in Prayer [] Reads Bible or Hindu materials [] There are Spiritual issues to be addressed Piano Teacher Interventions [x] Prayer [x] Active listening [x] Non-anxious presence [x] Spiritual/emotional support [] Crisis/trauma care [] Spiritual counseling [] Bereavement support [] Provided bereavement packet [] Provided Bible/devotional materials [] Provided toy/stuffed animal, coloring book to patient or family member [] Provided Communion [] Anointing/[place] [] Salvation [x] Completed spiritual assessment [] Other: Impact on Illness or Injury [] Angry [] Fearful [] Anxious [] Often cries [] Exhaustion [] Unable to work [] Unable to attend synagogue [] Unable to walk/stand [] Unable to read [] Unable to drive [] Unable to eat/drink [] Unable to sleep [] Unable to be with family [] Patient intubated [] Other: Summary Pt's son was in the room at the time of assistant professor of biochemistry visit. He is from [place] and was visiting Mom when when had her heart issue. He is debating whether he should move his family back to [place] since his mother is ill and his father in law, residing in [place] is also ill. He is a core baker in [place]. Pt. was reserved and somewhat closed discussing spiritual issues. She at one time attended muslim but no longer does. Pt was in agreement to ending in prayer. Time spent with patient 15m
[2020-08-10] MEDS: potassium chloride ER 20 mEq Tablet PO (09:12)
[2020-08-10] MEDS: atorvastatin 40 mg Tablet PO (09:12)
[2020-08-10] MEDS: aspirin 81 mg EC Tablet PO (09:12)
[2020-08-10] MEDS: gabapentin 300 mg Capsule PO ×3 (09:12→20:33)
[2020-08-10] MEDS: FUROsemide 40 mg Tablet PO (09:16)
[2020-08-10] MEDS: allopurinol 300 mg Tablet PO (09:17)
[2020-08-10] MEDS: clopidogrel 75 mg Tablet PO (09:25)
[2020-08-10] MEDS: sacubitril/valsartan 24-26 mg Tablet 4 EACH PO ×2 (09:53→17:51)
--- NOTE | 2020-08-10 10:13 | PM.PN ---
Subjective Subjective: Interval history: Patient was seen and examined this morning. She was seen after cath.She is was worried about her home medication, it was told to her that we are, starting her on the home medications.Denied any complaint. Her vitals and labs have been reviewed.Telemetry review showed 1 short run episode of V.Fib. Vitals/I&O/Wt Last Vital Signs Temp 98.3 F 08/10/20 05:42 Pulse 60 08/10/20 10:00 Resp 17 08/10/20 10:00 BP 96/51 08/10/20 10:00 Pulse Ox 97 08/10/20 09:45 08/09/20 08/10/20 08/10/20 22:59 06:59 14:59 Intake Total 52 / 52 600 / 600 Balance 52 / 52 600 / 600 Weight last 48 hrs Weight 106.594 kg Physical Exam Const: COMMON NORMALS: patient oriented x3 HENMT: COMMON NORMALS: normocephalic and atraumatic HEAD & SCALP: normocephalic and atraumatic Chest: CHEST: Yes Symmetrical chest wall rise Resp: COMMON NORMALS: clear to auscultation bilaterally AUSCULTATION: clear to auscultation bilaterally Cardio: COMMON NORMALS: regular rate, regular rhythm, S1 normal heart sound present, S2 normal heart sound present, No gallops present (Cardio), No murmurs present (Cardio), No rub (Cardio) and Peripheral pulses 2+ throughout RATE: regular rate RHYTHM: regular rhythm HEART SOUNDS: S1 normal heart sound present and S2 normal heart sound present PERIPHERAL PULSES: Peripheral pulses 2+ throughout GI: COMMON NORMALS: Normal to inspection, nondistended, normoactive bowel sounds present, Soft to palpation, non-tender, No hepatosplenomegaly present and no masses AUSCULTATION: Yes normoactive bowel sounds PALPATION: Yes Soft to palpation and Yes No hepatosplenomegaly present RECTAL EXAM: deferred Extremity: COMMON NORMALS: no clubbing, cyanosis or edema and no pedal edema Neuro: COMMON NORMALS: patient oriented x3 Data : 08/09/20 17:50 08/10/20 04:08 A&P Assessment and plan (1) AICD discharge: S/P cardiac Cath :No need for intervention.Official cath report awaited. Patient has not tolerated amiodarone in the past and the plan is to start her on Mexlitene 200 mg q12 h daily for Scar tissue related V.fib.And will likely be a candidate for ablation in future. 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 fib AICD interrogation report scanned in the system 3 episodes of V. fib 6 AM, 10 AM and 4 PM, 2 shocks were delivered at 10 AM and 4 PM, at 6 AM ATP Potassium slightly low 3.9 will give her 40 mEq p.o. potassium replacement I will give her 1 g of magnesium, check magnesium level Keep her n.p.o. after midnight for cardiac cath in the morning Currently saturating well on 2 L nasal cannula EKG showed concerning changes, no active chest pain troponin not significantly high, evaluated by Dr. Davis in the ER Ischemic cardiomyopathy without acute exacerbation of congestive heart failure: Looks compensated we will continue Lasix 40 mg for now, no clinical signs of fluid overload Sleep apnea: Uses 2 L of oxygen at night does not want to use CPAP at all Gout: No acute flare continue allopurinol with Lasix for now Full code DVT prophylaxis Lovenox N.p.o. after midnight Attestations Medical Necessity Statement*: Patient needs to be in hospital for the management of above defined problems. Coding Level of Care Code Acute Roof Panel Hanger for Chg Fwd Exam Detailed Diagnoses AICD discharge Z45.02 Gout, arthritis M10.9 Ischemic cardiomyopathy with implantable cardioverter-defibrillator (ICD) I25.5; Z95.810 Combined systolic and diastolic heart failure I50.43 Heart failure chronicity: acute on chronic Sleep apnea syndrome G47.33 Sleep apnea type: obstructive Smoker F17.200 Oxygen dependent Z99.81 COPD (chronic obstructive pulmonary disease) J44.9
--- NOTE | 2020-08-10 10:46 | PC.NURSE ---
Patients blood pressure has been low this morning. Received orders from Dr. Davis to hold Metoprolol. Rechecked pressure two hours later and pressure has improved to 116/72. Dr. Davis said to give metoprolol now. Patient had a run of Vtack, defibrillator shocked her back to SR. Patient VS stable and patient is alert and oriented. Will continue to monitor.
[2020-08-10] MEDS: metoprolol tartrate 50 mg Tablet PO ×2 (11:02→17:51)
--- NOTE | 2020-08-10 16:58 | PM.PN ---
Subjective Subjective: Interval history: Patient is overall doing well. Denies chest pain or shortness of breath. Feels weak and tired. She had episode of prolonged NSVT this morning. Coronary angiography was performed this morning that showed normal coronary arteries with patent stents in RCA. Vitals/I&O/Wt Last Vital Signs Temp 98.0 F 08/10/20 14:46 Pulse 70 08/10/20 14:46 Resp 22 H 08/10/20 14:46 BP 119/67 08/10/20 14:46 Pulse Ox 97 08/10/20 14:46 08/10/20 08/10/20 08/10/20 06:59 14:59 22:59 Intake Total 840 / 840 Balance 840 / 840 Weight last 48 hrs Weight 235 lb Physical Exam Narrative: EXAM NARRATIVE: GENERAL: Patient is alert, awake and oriented x3. [] NECK: No jugular vein distension. [] HEENT: No cyanosis. No icterus. No pallor. [] HEART: Regular S1 and S2. No murmur, rub or gallop. [] LUNGS: Clear to auscultate bilaterally. [] ABDOMEN: Soft, nontender and nondistended. Positive bowel sounds. No guarding, rebound or tenderness. [] CENTRAL NERVOUS SYSTEM: Grossly nonfocal. [] EXTREMITIES: Lower extremities with no edema bilaterally. Pulses palpable in the lower extremities, both dorsalis pedis and posterior tibial. [] Data : 08/11/20 04:12 08/11/20 04:12 A&P Assessment and plan (1) Ventricular tachycardia: Status: Acute (2) AICD discharge: Status: Acute (3) Mixed hyperlipidemia: Status: Acute (4) Chronic episodic atrial fibrillation: Status: Acute (5) Ischemic cardiomyopathy with implantable cardioverter-defibrillator (ICD): Status: Acute (6) Sleep apnea syndrome: Status: Chronic Qualifiers: Sleep apnea type: obstructive Qualified Code(s): G47.33 - Obstructive sleep apnea (adult) (pediatric) (7) COPD (chronic obstructive pulmonary disease): Status: Chronic (8) Coronary artery disease: Status: Chronic Qualifiers: Coronary Disease-Associated Artery/Lesion type: due to calcified coronary lesion Qualified Code(s): I25.10 - Atherosclerotic heart disease of [place] coronary artery without angina pectoris; I25.84 - Coronary atherosclerosis due to calcified coronary lesion Patient has ischemic cardiomyopathy and has been having multiple VT episodes leading to ICD firing. Patient underwent a coronary angiography that showed normal coronary arteries with patent stents in the RCA. Keep monitoring electrolytes with goal of potassium more than 4 and magnesium more than 2. Patient had a prolonged NSVT this morning. 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 We will try mexiletine 200 mg twice daily however it is not available in hospital pharmacy. We will need to order it to get it. Other option is initiation of sotalol with inpatient monitoring of QTC. Will reevaluate once availability of mexiletine is known. Telemetry monitoring In case she develops recurrent/ VT, will need lidocaine drip and ICU transfer Thank you for involving us with the care of this patient. We will continue to follow. Please call with questions. Attestations Medical Necessity Statement*: Care expected to cross 2 midnights. 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
[2020-08-10] MEDS: enoxaparin 40 mg/0.4 mL Syringe SUBCUT (20:33)
[2020-08-11] VITALS (14 sets, daily range): BP systolic 92–112; BP diastolic 42–62; PULSE 57–65; RESP 12–26; TEMP 36.4–36.8; O2SAT 91–98
[2020-08-11 04:40] LABS: Basophils % 0.3 %; Eosinophils # 0.1 10^3/uL (0.0-0.8); Eosinophils % 1.2 %; Hematocrit 38.4 % (37.0-47.0); Hemoglobin 11.9 g/dL (11.5-15.3); Lymphocytes # 2.9 10^3/uL (0.8-4.8); Lymphocytes % 38.5 %; Mean Corpuscular Hemoglobin 31.3 pg (28.0-34.0); Mean Corpuscular Volume 101.1 fL (81-99); Mean Platelet Volume 11.3 fL (7.4-10.4); Monocytes # 0.5 10^3/uL (0.2-0.9); Monocytes % 7.3 %; Neutrophils # 3.89 10^3/uL (1.8-7.7); Neutrophils % 52.4 %; Nucleated Red Blood Cells % 0 %; Platelet Count 186 10^3/cmm (130-400); Red Cell Distribution Width 14.3 % (12.1-15.1); White Blood Count 7.4 10^3/uL (4.0-10.0)
[2020-08-11 04:51] LABS: Anion Gap 10.8 (5-19); Blood Urea Nitrogen 30 mg/dL (8-23); Calcium 8.6 mg/dL (8.5-10.5); Carbon Dioxide 29 mmol/L (22-29); Chloride 101 mmol/L (98-107); Glomerular Filtration Rate 55.6 mL/min (90-130); Glucose 93 mg/dL (65-115); Magnesium 2.2 mg/dL (1.7-2.3); Osmolality Calculated 288 mOsm/kg (285-295); Potassium 4.8 mmol/L (3.5-5.1); Sodium 136 mmol/L (136-145)
--- NOTE | 2020-08-11 09:40 | ECG_ITS ---
[facility] Test Date: 2020-08-11 Pat Name: Amber White Department: Room: 102 Gender: Female Research Consultant: : 1955 Requested By: Ba Davis Order Number: [id number] Little MD: Lidia Corona M.D. Measurements Intervals River Rate: 65 P: 129 VA: 230 QRS: -7 QRSD: 109 T: 110 QT: 390 QTc: 407 Interpretive Statements ELECTRONIC ATRIAL PACEMAKER LOW QRS VOLTAGE [QRS DEFLECTION < 0.5/1.0 mV IN LIMB/CHEST LEADS] POSSIBLE INFERIOR MYOCARDIAL INFARCTION, OF INDETERMINATE AGE ANTEROLATERAL MYOCARDIAL INFARCTION, PROBABLY RECENT Compared to ECG 08/10/2020 00:48:37 No significant changes Electronically Signed On 08-12-2020 7:24:12 CDT by Lidia Corona M.D. [id number] f
[2020-08-11] MEDS: aspirin 81 mg EC Tablet PO (10:10)
[2020-08-11] MEDS: allopurinol 300 mg Tablet PO (10:10)
[2020-08-11] MEDS: atorvastatin 40 mg Tablet PO (10:11)
[2020-08-11] MEDS: clopidogrel 75 mg Tablet PO (10:11)
[2020-08-11] MEDS: FUROsemide 40 mg Tablet PO (10:11)
[2020-08-11] MEDS: sacubitril/valsartan 24-26 mg Tablet 4 EACH PO ×2 (10:12→17:36)
[2020-08-11] MEDS: gabapentin 300 mg Capsule PO ×3 (10:12→21:04)
[2020-08-11] MEDS: sotalol 80 mg Tablet PO ×2 (10:12→19:25)
[2020-08-11] MEDS: acetaminophen 325 mg Tablet 650 MG PO (11:05)
--- NOTE | 2020-08-11 11:18 | PC.NURSE ---
pt walked 60 ft with standbuy ast. heart rate never got above 96
--- NOTE | 2020-08-11 11:31 | PC.NURSE ---
Received orders from Dr. Davis to d/c Metoprolol 50mg BID and start patient on Sotalol 80mg PO BID. Ordered baseline EKG along with timed EKG for two hours after each dose of Sotalol. I also received orders to resume patient on home med fish oil 4,000mg. Patient has been walking today and heart rate and vital signs have remained stable. Nurse will continue to monitor the patient.
--- NOTE | 2020-08-11 11:35 | P.PN_ITS ---
Subjective Subjective: Interval history: Patient had one run of NSVT yesterday morning post Cath. Deny any acute event overnight. Her Vitals and labs have been reviewed. Vitals/I&O/Wt Last Vital Signs Temp 97.6 F 08/11/20 06:58 Pulse 64 08/11/20 09:06 Resp 17 08/11/20 09:04 BP 109/60 08/11/20 06:58 Pulse Ox 98 08/11/20 09:04 08/10/20 08/11/20 08/11/20 22:59 06:59 14:59 Intake Total 240 / 1080 440 / 1520 480 / 480 Output Total 1150 / 1150 Balance 240 / 1080 -710 / 370 480 / 480 Weight last 48 hrs Weight 106.594 kg Physical Exam Const: COMMON NORMALS: patient oriented x3 HENMT: COMMON NORMALS: normocephalic and atraumatic HEAD & SCALP: normocephalic and atraumatic Chest: CHEST: Yes Symmetrical chest wall rise Resp: COMMON NORMALS: clear to auscultation bilaterally AUSCULTATION: clear to auscultation bilaterally Cardio: COMMON NORMALS: regular rate, regular rhythm, S1 normal heart sound present, S2 normal heart sound present, No gallops present (Cardio), No murmurs present (Cardio), No rub (Cardio) and Peripheral pulses 2+ throughout RATE: regular rate RHYTHM: regular rhythm HEART SOUNDS: S1 normal heart sound present and S2 normal heart sound present PERIPHERAL PULSES: Peripheral pulses 2+ throughout GI: COMMON NORMALS: Normal to inspection, nondistended, normoactive bowel sounds present, Soft to palpation, non-tender, No hepatosplenomegaly present and no masses AUSCULTATION: Yes normoactive bowel sounds PALPATION: Yes Soft to palpation and Yes No hepatosplenomegaly present RECTAL EXAM: deferred Extremity: COMMON NORMALS: no clubbing, cyanosis or edema and no pedal edema Neuro: COMMON NORMALS: patient oriented x3 Data : 08/11/20 04:12 08/11/20 04:12 A&P Assessment and plan (1) AICD discharge: S/P cardiac Cath :No need for intervention.Official cath report awaited. Patient has not tolerated amiodarone in the past and the plan was to start her on Mexlitene 200 mg q12 h daily for Scar tissue related V.fib/V tach . Since Mexlitene is not covered by her insurance.Sotalol 80 mg PO BID has been initiated. She will be monitored for QTc Prolongation.While in the hospital. For 5 doses. Metoprolol.T has been discontinued. 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 fib AICD interrogation report scanned in the system 3 episodes of V. fib 6 AM, 10 AM and 4 PM, 2 shocks were delivered at 10 AM and 4 PM, at 6 AM ATP Potassium slightly low 3.9 will give her 40 mEq p.o. potassium replacement I will give her 1 g of magnesium, check magnesium level Keep her n.p.o. after midnight for cardiac cath in the morning Currently saturating well on 2 L nasal cannula EKG showed concerning changes, no active chest pain troponin not significantly high, evaluated by Dr. Davis in the ER Ischemic cardiomyopathy without acute exacerbation of congestive heart failure: Looks compensated we will continue Lasix 40 mg for now, no clinical signs of fluid overload Sleep apnea: Uses 2 L of oxygen at night does not want to use CPAP at all Gout: No acute flare continue allopurinol with Lasix for now Full code DVT prophylaxis Lovenox N.p.o. after midnight Attestations Medical Necessity Statement*: Patient needs to be in hospital for the ma nagement of above defined Problems. 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
--- NOTE | 2020-08-11 11:42 | PM.PN ---
Subjective Subjective: Interval history: Patient is doing well. Denies complaints of chest pain, shortness of breath or palpitations. Had short NSVT runs. We tried putting her on Mexiletine but she does not want to take it as says that it is too expensive. Vitals/I&O/Wt Last Vital Signs Temp 97.6 F 08/11/20 06:58 Pulse 64 08/11/20 09:06 Resp 17 08/11/20 09:04 BP 109/60 08/11/20 06:58 Pulse Ox 98 08/11/20 09:04 08/10/20 08/11/20 08/11/20 22:59 06:59 14:59 Intake Total 240 / 1080 440 / 1520 480 / 480 Output Total 1150 / 1150 Balance 240 / 1080 -710 / 370 480 / 480 Weight last 48 hrs Weight 235 lb Physical Exam Narrative: EXAM NARRATIVE: GENERAL: Patient is alert, awake and oriented x3. [] NECK: No jugular vein distension. [] HEENT: No cyanosis. No icterus. No pallor. [] HEART: Regular S1 and S2. No murmur, rub or gallop. [] LUNGS: Clear to auscultate bilaterally. [] ABDOMEN: Soft, nontender and nondistended. Positive bowel sounds. No guarding, rebound or tenderness. [] CENTRAL NERVOUS SYSTEM: Grossly nonfocal. [] EXTREMITIES: Lower extremities with no edema bilaterally. Pulses palpable in the lower extremities, both dorsalis pedis and posterior tibial. [] Data : 08/11/20 04:12 08/11/20 04:12 A&P Assessment and plan (1) Ventricular tachycardia: Status: Acute (2) AICD discharge: Status: Acute (3) Mixed hyperlipidemia: Status: Acute (4) Chronic episodic atrial fibrillation: Status: Acute (5) Ischemic cardiomyopathy with implantable cardioverter-defibrillator (ICD): Status: Acute (6) Sleep apnea syndrome: Status: Chronic Qualifiers: Sleep apnea type: obstructive Qualified Code(s): G47.33 - Obstructive sleep apnea (adult) (pediatric) (7) COPD (chronic obstructive pulmonary disease): Status: Chronic (8) Coronary artery disease: Status: Chronic Qualifiers: Coronary Disease-Associated Artery/Lesion type: due to calcified coronary lesion Qualified Code(s): I25.10 - Atherosclerotic heart disease of [place] coronary artery without angina pectoris; I25.84 - Coronary atherosclerosis due to calcified coronary lesion Patient has ischemic cardiomyopathy and has been having multiple VT episodes leading to ICD firing. Patient underwent a coronary angiography that showed normal coronary arteries with patent stents in the RCA. Keep monitoring electrolytes with goal of potassium more than 4 and magnesium more than 2. Patient had a prolonged NSVT this morning. 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 Patient refused Mexiletine because of cost. We will start sotalol 80mg BID with inpatient monitoring of QTC. Ideally should stay inpatient for 5 doses monitoring. Telemetry monitoring In case she develops recurrent/ VT, will need lidocaine drip and ICU transfer Thank you for involving us with the care of this patient. We will continue to follow. Please call with questions. 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
--- NOTE | 2020-08-11 12:30 | ECG_ITS ---
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 Measurements Intervals [place] Rate: 61 P: 118 NC: 245 QRS: -8 QRSD: 113 T: 103 QT: 419 QTc: 423 Interpretive Statements ELECTRONIC ATRIAL PACEMAKER LOW QRS VOLTAGE [QRS DEFLECTION < 0.5/1.0 mV IN LIMB/CHEST LEADS] PROBABLE INFERIOR MYOCARDIAL INFARCTION,PROBABLY OLD ANTEROLATERAL MYOCARDIAL INFARCTION,PROBABLY RECENT Compared to ECG 08/11/2020 09:49:48 No significant changes Electronically Signed On 08-12-2020 7:45:16 CDT by Lidia Croona M.D. [email or web address]/[id number]
[2020-08-11] MEDS: enoxaparin 40 mg/0.4 mL Syringe SUBCUT (21:04)
[2020-08-11] MEDS: omega-3 fatty acids 1,000 mg Capsule 4000 MG PO (21:04)
--- NOTE | 2020-08-11 21:30 | ECG_ITS ---
[facility] Test Date: 2020-08-11 Pat Name: Amber White Department: Room: 102 Gender: Female Director Of Materials Management: judd MEI: 1955 Requested By: Ba Davis Order Number: [id number] Reading MD: Ba Davis M.D. Measurements Intervals [place] Rate: 65 P: 118 ID: 255 QRS: -5 QRSD: 106 T: 98 QT: 420 QTc: 438 Interpretive Statements ELECTRONIC ATRIAL PACEMAKER LOW QRS VOLTAGE [QRS DEFLECTION < 0.5/1.0 mV IN LIMB/CHEST LEADS] POSSIBLE ANTERIOR MYOCARDIAL INFARCTION [30 ms Q WAVE IN V3/V4, OR R < 0.2 mV IN V4], OF INDETERMINATE AGE POSSIBLE INFERIOR MYOCARDIAL INFARCTION [30 ms Q WAVE IN II/aVF], OF INDETERMINATE AGE Compared to ECG 08/11/2020 12:56:47 No significant changes Electronically Signed On 08-12-2020 19:19:22 CDT by Ba Davis M.D. [id number]
[2020-08-12] VITALS (12 sets, daily range): BP systolic 98–123; BP diastolic 51–80; PULSE 60–81; RESP 16–21; TEMP 36.2–36.8; O2SAT 96–99
[2020-08-12] MEDS: sotalol 80 mg Tablet PO ×2 (07:22→17:57)
[2020-08-12] MEDS: sacubitril/valsartan 24-26 mg Tablet 4 EACH PO ×2 (08:28→17:37)
[2020-08-12] MEDS: FUROsemide 40 mg Tablet PO (08:28)
[2020-08-12] MEDS: atorvastatin 40 mg Tablet PO (08:28)
[2020-08-12] MEDS: aspirin 81 mg EC Tablet PO (08:28)
[2020-08-12] MEDS: clopidogrel 75 mg Tablet PO (08:28)
[2020-08-12] MEDS: gabapentin 300 mg Capsule PO ×3 (08:28→20:26)
[2020-08-12] MEDS: allopurinol 300 mg Tablet PO (08:28)
--- NOTE | 2020-08-12 09:16 | PC.SOCIAL ---
IMM Update Pg.2 of IMM updated and reviewed with patient, who verbalized understanding. Initialed, dated, and timed, and placed in chart/copy provided to patient.
--- NOTE | 2020-08-12 09:30 | ECG_ITS ---
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 Measurements Intervals [place] Rate: 61 P: 123 MA: 263 QRS: 22 QRSD: 106 T: 105 QT: 430 QTc: 437 Interpretive Statements ELECTRONIC ATRIAL PACEMAKER LOW QRS VOLTAGE [QRS DEFLECTION < 0.5/1.0 mV IN LIMB/CHEST LEADS] POSSIBLE ANTERIOR MYOCARDIAL INFARCTION [30 ms Q WAVE IN V3/V4, OR R < 0.2 mV IN V4], OF INDETERMINATE AGE POSSIBLE INFERIOR MYOCARDIAL INFARCTION [30 ms Q WAVE IN II/aVF], OF INDETERMINATE AGE Compared to ECG 08/11/2020 21:50:22 No significant changes Electronically Signed On 08-12-2020 19:17:21 CDT by Ba Davis M.D. [email or web address].[employer]/store/[id number]
--- NOTE | 2020-08-12 12:34 | PM.PN ---
Subjective Subjective: Interval history: Patient is doing well. No complaints of chest pain, shortness of breath or palpitations. Had brief NSVT episode. QTC tolerating Sotalol. Vitals/I&O/Wt Last Vital Signs Temp 97.1 F L 08/12/20 08:00 Pulse 64 08/12/20 09:14 Resp 16 08/12/20 09:11 BP 103/60 08/12/20 03:35 Pulse Ox 99 08/12/20 09:11 08/11/20 08/12/20 08/12/20 22:59 06:59 14:59 Intake Total 480 / 1200 240 / 240 Balance 480 / 1200 240 / 240 Physical Exam Narrative: EXAM NARRATIVE: GENERAL: Patient is alert, awake and oriented x3. [] NECK: No jugular vein distension. [] HEENT: No cyanosis. No icterus. No pallor. [] HEART: Regular S1 and S2. No murmur, rub or gallop. [] LUNGS: Clear to auscultate bilaterally. [] ABDOMEN: Soft, nontender and nondistended. Positive bowel sounds. No guarding, rebound or tenderness. [] CENTRAL NERVOUS SYSTEM: Grossly nonfocal. [] EXTREMITIES: Lower extremities with no edema bilaterally. Pulses palpable in the lower extremities, both dorsalis pedis and posterior tibial. [] Data : 08/11/20 04:12 08/11/20 04:12 A&P Assessment and plan (1) Ventricular tachycardia: Status: Acute (2) AICD discharge: Status: Acute (3) Mixed hyperlipidemia: Status: Acute (4) Chronic episodic atrial fibrillation: Status: Acute (5) Ischemic cardiomyopathy with implantable cardioverter-defibrillator (ICD): Status: Acute (6) Sleep apnea syndrome: Status: Chronic Qualifiers: Sleep apnea type: obstructive Qualified Code(s): G47.33 - Obstructive sleep apnea (adult) (pediatric) (7) COPD (chronic obstructive pulmonary disease): Status: Chronic (8) Coronary artery disease: Status: Chronic Qualifiers: Coronary Disease-Associated Artery/Lesion type: due to calcified coronary lesion Qualified Code(s): I25.10 - Atherosclerotic heart disease of [place] coronary artery without angina pectoris; I25.84 - Coronary atherosclerosis due to calcified coronary lesion Patient has ischemic cardiomyopathy and has been having multiple VT episodes leading to ICD firing. Patient underwent a coronary angiography that showed normal coronary arteries with patent stents in the RCA. Keep monitoring electrolytes with goal of potassium more than 4 and magnesium more than 2. Patient had a brief NSVT this morning. 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 Patient refused Mexiletine because of cost. QTc interval is stable and was 437 on last EKG. If patient's QTC stays stable after the next dose, she can be discharged. Telemetry monitoring In case she develops recurrent/ VT, will need lidocaine drip and ICU transfer Thank you for involving us with the care of this patient. Please call with questions. Attestations Medical Necessity Statement*: Care expected to cross 2 midnights Coding Level of Care Code Acute Auto Former Machine Operator for g Fwd Diagnoses Ventricular tachycardia I47.2 AICD discharge Z45.02 Mixed hyperlipidemia E78.2 Chronic episodic atrial fibrillation I48.20 Ischemic cardiomyopathy with implantable cardioverter-defibrillator (ICD) I25.5; Z95.810 Sleep apnea syndrome G47.33 Sleep apnea type: obstructive COPD (chronic obstructive pulmonary disease) J44.9 Coronary artery disease I25.10; I25.84 Coronary Disease-Associated Artery/Lesion type: due to calcified coronary lesion
--- NOTE | 2020-08-12 15:04 | PM.DCS ---
Discharge Providers Date of Admission: 08/09/20 19:30 Date of Discharge: August 12, 2020 Attending Provider at Admission: Virgilio Santana MD Attending Provider at Discharge: Fernando Bass MD Primary Care Provider: Lois Sorto Diagnoses at Discharge Discharge Diagnosis (1) Ventricular tachycardia: Status: Acute (2) AICD discharge: Status: Acute (3) Mixed hyperlipidemia: Status: Acute (4) Chronic episodic atrial fibrillation: Status: Acute Permanent problem details: Pt has massive GI bleed and is not wanting to take oral anticoagulant (5) Ischemic cardiomyopathy with implantable cardioverter-defibrillator (ICD): Status: Acute (6) Sleep apnea syndrome: Status: Chronic Qualifiers: Sleep apnea type: obstructive Qualified Code(s): G47.33 - Obstructive sleep apnea (adult) (pediatric) (7) COPD (chronic obstructive pulmonary disease): Status: Chronic (8) Coronary artery disease: Status: Chronic Qualifiers: Coronary Disease-Associated Artery/Lesion type: due to calcified coronary lesion Qualified Code(s): I25.10 - Atherosclerotic heart disease of [place] coronary artery without angina pectoris; I25.84 - Coronary atherosclerosis due to calcified coronary lesion Reason for Visit Reason for Visit: CHEST PAIN Hospital Course Hospital Course 65 year old female who has history of chronic atrial fibrillation, ischemic cardiomyopathy PCI to right coronary artery multiple times in the past, mixed systolic diastolic congestive heart failure status post AICD placement(EF 30%), ICD discharge in April 2019 status post cardiac cath without any intervention(stents were patent), presented with chief concern of AICD firing. On the day of admission Patient stated that she was resting in her couch when She started experiencing dizziness, shortness of breath, presyncopal. She did not experience any chest pain. She noticed her AICD firing at 10 AM and 4 PM, normally with AICD firing she would experience syncopal events but this time it was not the case.Upon arrival in the ER she was worked up for above-mentioned complaint, troponin was without any significant delta, pacemaker interrogation revealed, ATP at 6 AM and 2 shocks delivered at 10 AM and 4 PM for V. fib 3 episodes, EKG showing sinus rhythm first-degree AV block, persistent prior ST elevation in lateral leads was noted no significant change from prior EKG. she was admitted for the management of AICD discharge for V. fib/VT.During this hospital stay she underwent cardiac cath, no intervention was done. Coronary angiogram: showed normal coronary arteries with patent stents in the RCA. Patient had one episode of prolonged NSVT episode during the hospital stay, given the possibility of a scar tissue associated VT/ V. fib, initial plan was to start the patient on mexiletine, but due to insurance noncoverage, sotalol was started, metoprolol was discontinued, serial EKG post 2 hours sotalol dose of 80 mg twice daily for monitoring of QTc intervals was done.So far she has responded well to sotalol. Electrolytes were monitored and corrected.Patient has experienced amiodarone toxicity in the past.Patient will continue to follow Dr. Saldaña as an outpatient. Physical Exam Const: COMMON NORMALS: patient oriented x3 HENMT: COMMON NORMALS: normocephalic and atraumatic HEAD & SCALP: normocephalic and atraumatic Chest: CHEST: Yes Symmetrical chest wall rise Resp: COMMON NORMALS: clear to auscultation bilaterally AUSCULTATION: clear to auscultation bilaterally Cardio: COMMON NORMALS: regular rate, regular rhythm, S1 normal heart sound present, S2 normal heart sound present, No gallops present (Cardio), No murmurs present (Cardio), No rub (Cardio) and Peripheral pulses 2+ throughout RATE: regular rate RHYTHM: regular rhythm HEART SOUNDS: S1 normal heart sound present and S2 normal heart sound present PERIPHERAL PULSES: Peripheral pulses 2+ throughout GI: COMMON NORMALS: Normal to inspection, nondistended, normoactive bowel sounds present, Soft to palpation, non-tender, No hepatosplenomegaly present and no masses AUSCULTATION: Yes normoactive bowel sounds PALPATION: Yes Soft to palpation and Yes No hepatosplenomegaly present RECTAL EXAM: deferred Extremity: COMMON NORMALS: no clubbing, cyanosis or edema and no pedal edema Neuro: COMMON NORMALS: patient oriented x3 Discharge Data Data Completed and Pending: Completed Studies During Hospitalization Category Date Time Status XR chest 1V gracie ble [id number] Stat Exams 08/09/20 17:45 Completed Pending at discharge Category Date Time Status WASHER ENGINEER request for service Routin e Exams 08/10/20 06:00 Taken Vitals: Last Vital Signs Temp 98.0 F 08/12/20 12:00 Pulse 68 08/12/20 12:00 Resp 21 H 08/12/20 12:00 BP 98/51 08/12/20 12:00 Pulse Ox 96 08/12/20 12:00 Discharge Plan Discharge Patient Disposition: Home Condition: Stable Prescriptions: New sotalol 80 mg tablet 80 mg PO BID Qty: 60 RF: 3 Continued allopurinol 300 mg tablet 300 mg PO DAILY Qty: 30 RF: 5 clopidogrel 75 mg tablet 75 mg PO DAILY Qty: 90 RF: 3 Entresto 97-103 mg tablet 1 tab PO BID 30 Days Qty: 60 RF: 5 gabapentin 300 mg capsule 300 mg PO TID RF: 0 budesonide-formoterol [Symbicort] 160-4.5 mcg/actuation HFA aerosol inhaler 2 puff INHALATION BID RF: 0 levocetirizine 5 mg tablet 5 mg PO DAILY RF: 0 Atrovent HFA 17 mcg/actuation Hfa Aerosol Inhaler 2 puff INHALATION QID RF: 0 nitroglycerin [Nitrostat] 0.4 mg Tablet, Sublingual 0.4 mg sublingual PRN RF: 0 omega-3 fatty acids 1,000 mg Capsule 4,000 mg PO DAILY Qty: 0 RF: 0 furosemide 40 mg tablet 40 mg PO DAILY RF: 0 potassium chloride 20 mEq tablet,ER particles/crystals 20 meq PO DAILY RF: 0 spironolactone 25 mg Tablet 25 mg PO DAILY RF: 0 aspirin 81 mg Tablet,Chewable 81 mg PO DAILY RF: 0 rosuvastatin 10 mg Tablet 10 mg PO BEDTIME RF: 0 multivitamin Tablet 1 tab PO DAILY RF: 0 Vitamin C 500 mg Tablet 500 mg PO DAILY RF: 0 magnesium oxide 250 mg magnesium Tablet 250 mg PO DAILY RF: 0 albuterol sulfate 1.25 mg/3 mL Solution For Nebulization 1.25 mg INHALATION QID PRN (Reason: Shortness Of Breath Or Wheezing) RF: 0 Discontinued metoprolol tartrate 50 mg Tablet 50 mg PO BID RF: 0 Discharge Orders: Discharge Order (Routine); Ordered 08/12/20 Ordered By: Fernando Bass Referrals: Lee Saldaña MD [Physician] - 11/09/21 10:00 am (Please keep the cardiology followup with Dr. Saldaña at [facility] on November 09 at 10:00am) Hermila Medrano FNP [Nurse Practitioner] - 08/18/20 11:00 am (You have a followup with CHETNA Purvis at [facility] on August 18 at 11:00am) Lois Sorto PA [Primary Care Provider] - 08/17/20 9:30 am (You have a hospital followup with PEDRITO Morales at [facility] on August 17 at 9:30am) Discharge Diet: Cardiac Discharge Activity: Resume usual activity Patient Instructions: Sotalol (By mouth), Opioid Safety Discharge Attestations Time Spent in Discharge Care*: greater than 30 min Specific Discharge Activities: educating patient, educating and/or supporting family/caregiver, discussing with pcp/other providers, discussing with business case analyst/social workers/dc planners, documenting/other paperwork and evaluating patient/reviewing data Status at Discharge: Cognitive status at discharge: cognitively intact, Behavioral status at discharge: cooperative, Functional status at discharge: independent ambulation Overall status at discharge: patient is back to baseline Quality Metrics Clinical Quality Measures During this hospital stay, did patient experience: None Coding Level of Care Code Acute Chg FW DC note Exam Detailed Diagnoses Ventricular tachycardia I47.2 AICD discharge Z45.02 Mixed hyperlipidemia E78.2 Chronic episodic atrial fibrillation I48.20 Ischemic cardiomyopathy with implantable cardioverter-defibrillator (ICD) I25.5; Z95.810 Sleep apnea syndrome G47.33 Sleep apnea type: obstructive COPD (chronic obstructive pulmonary disease) J44.9 Coronary artery disease I25.10; I25.84 Coronary Disease-Associated Artery/Lesion type: due to calcified coronary lesion
[2020-08-12] MEDS: acetaminophen 325 mg Tablet 650 MG PO (17:36)
--- NOTE | 2020-08-12 18:22 | PC.NURSE ---
Received instructions from [facility] to give sotalol dose early at 1800, and order ECG for 20:00.
--- NOTE | 2020-08-12 20:52 | PC.NURSE ---
Patient given all discharge paperwork and informed of all of her follow up appointments. IV D/C and patient taken out to car via wheelchair and left in the care of her family.
--- NOTE | 2020-08-12 21:30 | ECG_ITS ---
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: : 1955 Requested By: Fernando Bass Order Number: [id number] Reading MD: ADRIANE ORTEGA Measurements Intervals [place] Rate: 63 P: 106 MO: 261 QRS: 6 QRSD: 110 T: 87 QT: 424 QTc: 436 Interpretive Statements ELECTRONIC ATRIAL PACEMAKER LOW QRS VOLTAGE [QRS DEFLECTION < 0.5/1.0 mV IN LIMB/CHEST LEADS] ANTERIOR MYOCARDIAL INFARCTION [40+ ms Q WAVE AND/OR ST/T ABNORMALITY IN V3/V4], OF INDETERMINATE AGE POSSIBLE INFERIOR MYOCARDIAL INFARCTION [30 ms Q WAVE IN II/aVF], PROBABLY OLD Compared to ECG 08/12/2020 09:12:44 No significant changes Electronically Signed On 08-14-2020 22:30:49 CDT by ADRIANE ORTEGA [id number]
--- NOTE | 2020-08-15 18:51 | PC.RESP ---
Smoking Cessation and Pulmonary Rehab information sent to patient.
== END 2020-08-12 20:53 | disposition home or self-care (01) | DRG 286 ==
LOC: ER 19:50 → CSU 20:39
PROVIDERS: Internal Medicine; Admitting Provider Internal Medicine; Emergency Provider Family Medicine; PCP Physician Assistant; Visit Provider Internal Medicine
DX: Z45.02 Encounter for adjustment and management of automatic implantable cardiac defibrillator (principal); I49.01 Ventricular fibrillation; I50.43 Acute on chronic combined systolic (congestive) and diastolic (congestive) heart failure; I48.20 Chronic atrial fibrillation, unspecified; I25.10 Atherosclerotic heart disease of native coronary artery without angina pectoris; Z95.5 Presence of coronary angioplasty implant and graft; I25.5 Ischemic cardiomyopathy; Z95.810 Presence of automatic (implantable) cardiac defibrillator; Z99.81 Dependence on supplemental oxygen; M19.90 Unspecified osteoarthritis, unspecified site; J44.9 Chronic obstructive pulmonary disease, unspecified; M51.36 Other intervertebral disc degeneration, lumbar region; F32.9 Major depressive disorder, single episode, unspecified; E78.2 Mixed hyperlipidemia; M10.9 Gout, unspecified; G62.9 Polyneuropathy, unspecified; G47.33 Obstructive sleep apnea (adult) (pediatric); F17.210 Nicotine dependence, cigarettes, uncomplicated; Z79.51 Long term (current) use of inhaled steroids; Z79.82 Long term (current) use of aspirin; Z79.02 Long term (current) use of antithrombotics/antiplatelets
CPT/HCPCS: 36415; 71045; 80048; 80053; 83690; 83735; 83880; 84484; 85025; 85378; 85610; 93005; 93452; 94640; 96372; 99285; C1760; C1769; C1887; C1894; J1644; J1650; J2250; J3010; J3475; J7030; Q0163; Q9967

== ENCOUNTER 2020-08-15 20:49 | Inpatient (IN) | payer MEDICARE, MEDICAID, SELFPAY ==
[2020-08-15] VITALS (7 sets, daily range): BP systolic 112–125; BP diastolic 54–71; PULSE 59–67; RESP 13–22; TEMP 36.6; O2SAT 95–97; BMI 33.6
--- NOTE | 2020-08-15 21:20 | ECG_ITS ---
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 Measurements Intervals [place] Rate: 63 P: 71 HI: 218 QRS: 21 QRSD: 110 T: 110 QT: 415 QTc: 427 Interpretive Statements SINUS RHYTHM WITH FIRST DEGREE AV BLOCK WITH OCCASIONAL VENTRICULAR PREMATURE COMPLEXES LOW QRS VOLTAGE IN PRECORDIAL LEADS [QRS DEFLECTION < 1.0 mV IN CHEST LEADS] PROBABLE INFERIOR MYOCARDIAL INFARCTION [35 ms Q WAVE IN II/aVF], OF INDETERMINATE AGE INTERPRETATION BASED ON A DEFAULT AGE OF 40 YEARS Compared to ECG 08/12/2020 20:05:59 First degree AV block now present Atrial-paced complex(es) or rhythm no longer present Myocardial infarct finding still present Electronically Signed On 08-17-2020 8:00:54 CDT by Ba Davis M.D. [id number]
--- NOTE | 2020-08-15 21:20 | XRR_ITS ---
PROCEDURE INFORMATION: Exam: XR Chest Exam date and time: 08/15/2020 9:25 PM Age: 65 years old Clinical indication: Chest pain; Prior surgery; Surgery type: Pacemaker TECHNIQUE: Imaging protocol: XR of the chest. Views: 1 view. COMPARISON: CR XR chest 1V portable [id number] 08/09/2020 6:16 PM FINDINGS: Tubes, catheters and devices: Intact multi lead left subclavian pacemaker. Lungs: Atelectasis in the left lung base and lingula. The right lung is clear. Pleural spaces: Possible small left pleural effusion. Heart/Mediastinum: The heart size is upper normal. Bones/joints: Unremarkable. XR/XR chest 1V portable [id number] IMPRESSION: 1. Left base atelectasis and possible small pleural effusion.
[2020-08-15] MEDS: lidocaine drip 2,000 MG/500 ML PREMIX 30 MG IV (21:31)
[2020-08-15 21:32] LABS: Basophils % 0.4 %; Eosinophils # 0.1 10^3/uL (0.0-0.8); Eosinophils % 1.2 %; Hematocrit 35.5 % (37.0-47.0); Hemoglobin 11.9 g/dL (11.5-15.3); Lymphocytes # 2.3 10^3/uL (0.8-4.8); Mean Corpuscular HGB Conc 33.5 g/dL (30.0-36.0); Mean Corpuscular Hemoglobin 32.1 pg (28.0-34.0); Mean Corpuscular Volume 95.7 fL (81-99); Mean Platelet Volume 11.3 fL (7.4-10.4); Monocytes # 0.5 10^3/uL (0.2-0.9); Monocytes % 6.7 %; Neutrophils # 4.84 10^3/uL (1.8-7.7); Neutrophils % 62.2 %; Nucleated Red Blood Cells % 0 %; Platelet Count 209 10^3/cmm (130-400); Red Blood Count 3.71 10^6/uL (4.1-5.3); Red Cell Distribution Width 14.1 % (12.1-15.1); White Blood Count 7.8 10^3/uL (4.0-10.0)
[2020-08-15 21:43] LABS: INR 0.92 (0.8-1.2)
[2020-08-15 21:49] LABS: Troponin(5th) Baseline 19 ng/L (0-10)
[2020-08-15 21:59] LABS: Add Urine Microscopic? YES; Bilirubin Urine Neg (Negative); Blood Urine Neg (Negative); Glucose Urine UA Norm (Normal); Ketones Urine Negative (Negative); Leukocyte Esterase Urine 2+ (Negative); Nitrate Urine Positive (Negative); Protein Urine Neg (Negative); Specific Gravity, Urine 1.005 (1.005-1.030); Urine Appearance Cloudy (CLEAR); Urine Color Yellow (Yellow); Urobilinogen Urine Norm (Negative); pH Urine 7 (5-7)
[2020-08-15 21:59] LABS: Alanine Aminotransferase 17 U/L (0-33); Albumin Level 3.9 g/dL (3.5-5.2); Alkaline Phosphatase 89 IU/L (35-105); Anion Gap 14.2 (5-19); Aspartate Amino Transferase 19 U/L (0-32); Blood Urea Nitrogen 20 mg/dL (8-23); Calcium 8.9 mg/dL (8.5-10.5); Carbon Dioxide 24 mmol/L (22-29); Chloride 102 mmol/L (98-107); Glomerular Filtration Rate 55.6 mL/min (90-130); Glucose 166 mg/dL (65-115); NT Pro B Type Natriuretic Pept 590 pg/mL (0-125); Osmolality Calculated 288 mOsm/kg (285-295); Potassium 4.2 mmol/L (3.5-5.1); Sodium 136 mmol/L (136-145); Total Bilirubin 0.2 mg/dL (0.15-1.2); Total Protein 5.9 g/dL (6.6-8.7)
--- NOTE | 2020-08-15 22:00 | ED_ITS ---
HPI - Arrhythmia/Palpitations General: Chief Complaint: Arrhythmia/Palpitations Stated Complaint: Defib firing Time Seen by Provider: 08/15/20 21:00 History of Present Illness: HPI narrative: 65-year-old female returns with chest pain/defibrillator going off. Patient was here last week for the same thing. They discontinued her metoprolol and added sotalol. Patient states she has not missed any medications. Patient states that she had an episode approxim ate 1 hour prior to arrival as well as EMS stating she had an episode on route and upon arrival before put in the room the patient had another episode. Associated symptoms: Deny anxiety, diaphoresis, nausea or vomiting Review of Systems General: Reports: 10 or more systems reviewed and unremarkable except in HPI and below Const: Denies: fever(s), chills, body aches, change in appetite or diaphoresis ENMT: Reports: throat pain, ear or mastoid pain and nasal discharge Card: Reports: chest pain (Chest pain with the defibrillator) and irregular heart rhythm Resp: Denies: dyspnea, productive cough, wheezing, stridor or pain on inspiration GI: Denies: abdominal pain, nausea, vomiting, hematemesis, heartburn, diarrhea or constipation : Denies: flank pain, difficulty voiding or dysuria Musc: Denies: neck pain, back pain or extremity pain Neuro: Denies: headache(s), numbness in extremities, weakness in extremities, lack of coordination, difficulty walking, frequent falls or dizziness Psych: Denies: anxiety or depression PFS ED PFSH: Medical History (Updated 08/16/20 @ 01:04 by Virgilio Santana MD) AICD discharge AICD discharge Arthritis Asthma Atherosclerotic heart disease of [place] coronary artery with other forms of júnior na pectoris Cardiac cath in April 2019 revealed No significant disease noted in the Left Main, LAD, Circumflex, or RCA coronary arteries. The right coronary artery was extensively stented with the patent stents. LVEDP was 13 mmHg. LV gram was not performed because of theabnormal kidney function Atherosclerotic heart disease of [place] coronary artery with unstable angina pectoris Back pain Cardiomyopathy Chronic episodic atrial fibrillation Pt has massive GI bleed and is not wanting to take oral anticoagulant Combined systolic and diastolic heart failure Ejection fraction 30%, grade 1/4 diastolic dysfunction COPD (chronic obstructive pulmonary disease) Coronary artery disease Degenerative joint disease (DJD) of lumbar spine Depression Dyslipidemia Fall Gout Gout, arthritis H/O coronary angiogram Showed patent stented segment of RCA with diffuse disease in other vessels High risk medication use Immunization counseling Ischemic cardiomyopathy with implantable cardioverter-defibrillator (ICD) Mixed hyperlipidemia Neuropathy Osteoarthritis Oxygen dependent Sleep apnea uses Bipap at night with 2 L o2 Sleep apnea syndrome Sleep apnea with mood disorder Smoker Smoking Tendinopathy of rotator cuff Ventricular tachycardia Surgical History AICD (automatic cardioverter/defibrillator) present ICD placement in 2012 with generator change by Dr. Boucher on 05/21/2018 History of appendectomy History of tubal ligation Hx of tonsillectomy Family History Father Hypertension CAD (coronary artery disease) Mother Diabetes CAD (coronary artery disease) Cancer Lung disease Brother No problems noted. Sister Cancer Dementia Diabetes Family/Other CAD (coronary artery disease) Cancer Diabetes Father No problems noted. Grandmother CAD (coronary artery disease) Cancer Lung disease Grandfather CAD (coronary artery disease) Other Stroke Denies family history of Rheumatoid arthritis Lupus Clotting disorder Chronic kidney disease (CKD) Suicide Anesthesia complication Bleeding disorder Social History Smoking and tobacco status: current every day smoker cigarettes Alcohol intake: never Lives independently: Yes Marital status: / Physical Exam Const: COMMON NORMALS: patient oriented x3, no limitations, healthy appearing, alert and well nourished GENERAL APPEARANCE: cooperative and anxious NUTRITIONAL APPEARANCE: obese ORIENTATION/CONSCIOUSNESS: Yes awake, Yes oriented to person, Yes oriented to place and Yes oriented to time HENMT: COMMON NORMALS: normocephalic and atraumatic HEAD & SCALP: normal to inspection, normocephalic and atraumatic FACE & SINUS: normal facial exam MOUTH: Normal oral and palatal mucosa present Eye: COMMON NORMALS: Equal, round and reactive pupils present, EOMs intact bilaterally, conjunctivae normal and no scleral icterus GENERAL EYE: appearance normal, both eyes and all related structures and normal light reflex CONJUNCTIVA: Yes conjunctivae normal PUPIL: Yes Equal, round and reactive pupils present DIRECT OPHTHALMOSCOPY: Yes normal light reflex Neck/C-Spine: COMMON NORMALS: full ROM, no lymphadenopathy, supple, no meningeal signs, no JVD and Thyroid normal GENERAL: Yes normal visual inspection and Yes trachea midline THYROID: Thyroid normal Chest: OTHER: Pacemaker/defibrillator in the left upper chest Resp: COMMON NORMALS: normal respiratory effort, No retractions, No use of accessory muscles and clear to auscultation bilaterally EFFORT & INSPECTION: Yes able to speak in complete sentences, Yes symmetric chest movement and No respiratory distress AUSCULTATION: clear to auscultation bilaterally Cardio: COMMON NORMALS: no JVD GI: COMMON NORMALS: Normal to inspection, nondistended, normoactive bowel sounds present, Soft to palpation, non-tender, No hepatosplenomegaly present and no masses INSPECTION: Yes normal to inspection PALPATION: Yes Soft to palpation and Yes No hepatosplenomegaly present : COMMON NORMALS: Yes no CVA tenderness BLADDER/KIDNEY EXAM: Yes no CVA tenderness Back/Pelvis: COMMON NORMALS: no CVA tenderness Extremity: COMMON NORMALS: normal to inspection, full ROM, capillary refill normal, no joint enlargement, no clubbing, cyanosis or edema, no calf tenderness and no pedal edema Neuro: COMMON NORMALS: patient oriented x3 SENSORIUM/ORIENTATION: Yes alert, Yes oriented to person, Yes oriented to place and Yes oriented to time MENINGEAL SIGNS: Yes no meningeal signs Psych: COMMON NORMALS: mental status grossly normal, Normal thought process present, cooperative, normal affect and speech normal APPEARANCE: Yes grossly normal SPEECH: Yes normal speech THOUGHT PROCESS: Normal thought process present Course Consultations: Consultation #1: Dr. Davis, emery grinder, who requested the patient be started on a lidocaine drip and then to be admitted to the hospitalist with cardiology consult. Vital Signs: Vital signs: Vital Signs Temperature 98.2 F 08/16/20 00:35 Pulse Rate 60 08/16/20 06:05 Respiratory Rate 19 H 08/16/20 06:05 Blood Pressure 115/58 08/16/20 06:05 Pulse Oximetry 93 08/16/20 06:05 MDM - Arrhythmia/Palpitations Lab Data: Labs: Lab Results 08/15/20 08/15/20 08/15/20 Range/Units 21:17 21:17 21:17 WBC 7.8 (4.0-10.0) 10^3/ uL RBC 3.71 L (4.1-5.3) 10^6/u L Hgb 11.9 (11.5-15.3) g/dL Hct 35.5 L (37.0-47.0) % MCV 95.7 (81-99) fL MCH 32.1 (28.0-34.0) pg MCHC 33.5 (30.0-36.0) g/dL RDW 14.1 (12.1-15.1) % Plt Count 209 (130-400) 10^3/c mm MPV 11.3 H (7.4-10.4) fL Neut % (Auto) 62.2 % Lymph % (Auto) 29.0 % [place] % (Auto) 6.7 % Eos % (Auto) 1.2 % Baso % (Auto) 0.4 % Neut # (Auto) 4.84 (1.8-7.7) 10^3/u L Lymph # (Auto) 2.3 (0.8-4.8) 10^3/u L [place] # (Auto) 0.5 (0.2-0.9) 10^3/u L Eos # (Auto) 0.1 (0.0-0.8) 10^3/u L Baso # (Auto) 0.0 (0.0-0.1) 10^3/u L Nucleated RBC % (a uto) 0 % Nucleated RBCs # 0.0 /100WBC PT 12.70 (12.1-14.9) SECO NDS INR 0.92 (0.8-1.2) APTT 30.0 (23.9-36.7) SECO NDS D-Dimer (0-0.59) ug/mIFE U Sodium 136 (136-145) mmol/L Potassium 4.2 (3.5-5.1) mmol/L Chloride 102 (98-107) mmol/L Carbon Dioxide 24 (22-29) mmol/L Anion Gap 14.2 (5-19) BUN 20 (8-23) mg/dL Creatinine 1.0 H (0.5-0.9) mg/dL GFR Calculation 55.6 L (90-130) mL/min Glucose 166 H (65-115) mg/dL Calculated Osmolal ity 288 (285-295) mOsm/k g Calcium 8.9 (8.5-10.5) mg/dL Magnesium (1.7-2.3) mg/dL Total Bilirubin 0.2 (0.15-1.2) mg/dL AST 19 (0-32) U/L ALT 17 (0-33) U/L Alkaline Phosphata se 89 (35-105) IU/L Troponin T Baselin e (0-10) ng/L NT-Pro-B Natriuret Pep 590 H (0-125) pg/mL Total Protein 5.9 L (6.6-8.7) g/dL Albumin 3.9 (3.5-5.2) g/dL Globulin 2.0 (1.3-4.6) g/dL Urine Color (Yellow) Urine Appearance (CLEAR) Urine pH (5-7) Ur Specific Gravit y (1.005-1.030) Urine Protein (Negative) Urine Glucose (UA) (Normal) Urine Ketones (Negative) Urine Blood (Negative) Urine Nitrate (Negative) Urine Bilirubin (Negative) Urine Urobilinogen (Negative) mg/dL Ur Leukocyte Val ase (Negative) Urine RBC (0-2) /hpf Urine WBC (0-5) /hpf Ur Squamous Epith Cells (0-5) /hpf Amorphous Sediment Urine Bacteria (NONE) /hpf 08/15/20 08/15/20 08/15/20 Range/Units 21:17 21:17 21:17 WBC (4.0-10.0) 10^3/ uL RBC (4.1-5.3) 10^6/u L Hgb (11.5-15.3) g/dL Hct (37.0-47.0) % MCV (81-99) fL MCH (28.0-34.0) pg MCHC (30.0-36.0) g/dL RDW (12.1-15.1) % Plt Count (130-400) 10^3/c mm MPV (7.4-10.4) fL Neut % (Auto) % Lymph % (Auto) % [place] % (Auto) % Eos % (Auto) % Baso % (Auto) % Neut # (Auto) (1.8-7.7) 10^3/u L Lymph # (Auto) (0.8-4.8) 10^3/u L [place] # (Auto) (0.2-0.9) 10^3/u L Eos # (Auto) (0.0-0.8) 10^3/u L Baso # (Auto) (0.0-0.1) 10^3/u L Nucleated RBC % (a uto) % Nucleated RBCs # /100WBC PT (12.1-14.9) SECO NDS INR (0.8-1.2) APTT (23.9-36.7) SECO NDS D-Dimer 1.29 H (0-0.59) ug/mIFE U Sodium (136-145) mmol/L Potassium (3.5-5.1) mmol/L Chloride (98-107) mmol/L Carbon Dioxide (22-29) mmol/L Anion Gap (5-19) BUN (8-23) mg/dL Creatinine (0.5-0.9) mg/dL GFR Calculation (90-130) mL/min Glucose (65-115) mg/dL Calculated Osmolal ity (285-295) mOsm/k g Calcium (8.5-10.5) mg/dL Magnesium 2.2 (1.7-2.3) mg/dL Total Bilirubin (0.15-1.2) mg/dL AST (0-32) U/L ALT (0-33) U/L Alkaline Phosphata se (35-105) IU/L Troponin T Baselin e 19 H (0-10) ng/L NT-Pro-B Natriuret Pep (0-125) pg/mL Total Protein (6.6-8.7) g/dL Albumin (3.5-5.2) g/dL Globulin (1.3-4.6) g/dL Urine Color (Yellow) Urine Appearance (CLEAR) Urine pH (5-7) Ur Specific Gravit y (1.005-1.030) Urine Protein (Negative) Urine Glucose (UA) (Normal) Urine Ketones (Negative) Urine Blood (Negative) Urine Nitrate (Negative) Urine Bilirubin (Negative) Urine Urobilinogen (Negative) mg/dL Ur Leukocyte Val ase (Negative) Urine RBC (0-2) /hpf Urine WBC (0-5) /hpf Ur Squamous Epith Cells (0-5) /hpf Amorphous Sediment Urine Bacteria (NONE) /hpf 05/03/21 Range/Units 21:39 WBC (4.0-10.0) 10^3/ uL RBC (4.1-5.3) 10^6/u L Hgb (11.5-15.3) g/dL Hct (37.0-47.0) % MCV (81-99) fL MCH (28.0-34.0) pg MCHC (30.0-36.0) g/dL RDW (12.1-15.1) % Plt Count (130-400) 10^3/c mm MPV (7.4-10.4) fL Neut % (Auto) % Lymph % (Auto) % [place] % (Auto) % Eos % (Auto) % Baso % (Auto) % Neut # (Auto) (1.8-7.7) 10^3/u L Lymph # (Auto) (0.8-4.8) 10^3/u L [place] # (Auto) (0.2-0.9) 10^3/u L Eos # (Auto) (0.0-0.8) 10^3/u L Baso # (Auto) (0.0-0.1) 10^3/u L Nucleated RBC % (a uto) % Nucleated RBCs # /100WBC PT (12.1-14.9) SECO NDS INR (0.8-1.2) APTT (23.9-36.7) SECO NDS D-Dimer (0-0.59) ug/mIFE U Sodium (136-145) mmol/L Potassium (3.5-5.1) mmol/L Chloride (98-107) mmol/L Carbon Dioxide (22-29) mmol/L Anion Gap (5-19) BUN (8-23) mg/dL Creatinine (0.5-0.9) mg/dL GFR Calculation (90-130) mL/min Glucose (65-115) mg/dL Calculated Osmolal ity (285-295) mOsm/k g Calcium (8.5-10.5) mg/dL Magnesium (1.7-2.3) mg/dL Total Bilirubin (0.15-1.2) mg/dL AST (0-32) U/L ALT (0-33) U/L Alkaline Phosphata se (35-105) IU/L Troponin T Baselin e (0-10) ng/L NT-Pro-B Natriuret Pep (0-125) pg/mL Total Protein (6.6-8.7) g/dL Albumin (3.5-5.2) g/dL Globulin (1.3-4.6) g/dL Urine Color Yellow (Yellow) Urine Appearance Cloudy (CLEAR) Urine pH 7 (5-7) Ur Specific Gravit y 1.005 (1.005-1.030) Urine Protein Neg (Negative) Urine Glucose (UA) Norm (Normal) Urine Ketones Negative (Negative) Urine Blood Neg (Negative) Urine Nitrate Positive H (Negative) Urine Bilirubin Neg (Negative) Urine Urobilinogen Norm (Negative) mg/dL Ur Leukocyte Val ase 2+ H (Negative) Urine RBC 0-4 H (0-2) /hpf Urine WBC 25-40 H (0-5) /hpf Ur Squamous Epith Cells 15-25 H (0-5) /hpf Amorphous Sediment Not Reportable Urine Bacteria 4+ H (NONE) /hpf Discharge Plan Discharge Admit Provider: Virgilio Santana Coding Level of Care Code ED Cork Mixer for Chg Fwd Exam Comprehensive
[2020-08-15 22:01] LABS: Add Urine Culture? No; Bacteria Urine 4+ /hpf; RBC Urine 0-4 /hpf (0-2); Squamous Epithelial Cell Urine 15-25 /hpf (0-5); WBC Urine 25-40 /hpf (0-5)
--- NOTE | 2020-08-15 22:21 | PM.HP ---
Providers/Chief Complaint Primary Care Provider: Lois Sorto Chief Complaint: CP History of Present Illness Amber White is a 65 year old female who has history of chronic atrial fibrillation, ischemic cardiomyopathy PCI to right coronary artery multiple times in the past, mixed systolic diastolic congestive heart failure status post AICD placement(EF 30%), ICD discharge in April 2019 status post cardiac cath without any intervention(stents were patent), was recently discharged from the hospital after management of AICD discharge 08/09, ( 3 episodes of V fib, ATP at 6 AM two shocks delivered at 10 AM and 4 PM), cardiology took her for coronary angiogram next day which was unremarkable, she was discharged on sotalol, her insurance was not able to cover mexiletine, metoprolol discontinued, 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 Patient presents today after experiencing multiple discharges of her AICD at home, patient is stating that after her meal she was watching television when she noticed 6 discharges within an hour, she did not lose any consciousness, she did not feel any chest pain or shortness of breath, nausea & vomiting, she is describing her symptoms as chest heaviness but would not call it chest pain. She came to the hospital, her AICD delivered another shock while she was in her emergency room which gave her a lot of pain. Dr. Taveras consulted and notified who recommended lidocaine gtt. by the time I saw her she was hemodynamically stable EKG without ischemic or infarct changes troponin not significantly high, sister was at the bedside, she was addressing her goals of care with her. Review of Systems Const: Denies: fever(s) Eyes: Denies: change in vision ENMT: Denies: throat pain Card: Reports: chest pain Resp: Denies: dyspnea GI: Denies: abdominal pain : Denies: flank pain Musc: Denies: neck pain Skin/Breast: Denies: rash Neuro: Denies: headache(s) Psych: Denies: anxiety Endo: Denies: polyuria Mert/Lymph: Denies: easy bruising All/Imm: Denies: urticaria Medications/Allergies Home Medications Medication Instructions Recorded Confirmed Last Taken Type Atrovent HFA 2 puff INHALATION QID 04/15/19 08/09/20 08/09/20 12:00 History budesonide-formoterol [Symbicort] 2 puff INHALATION BID 04/15/19 08/09/20 08/09/20 08:00 History gabapentin 300 mg PO TID 04/15/19 08/09/20 08/09/20 12:00 History levocetirizine 5 mg PO DAILY 04/15/19 08/09/20 08/09/20 08:00 History nitroglycerin [Nitrostat] 0.4 mg SUBLINGUAL PRN 04/15/19 08/09/20 Unknown History omega-3 fatty acids 4,000 mg PO DAILY #0 04/15/19 08/09/20 08/09/20 08:00 History furosemide 40 mg tablet 40 mg PO DAILY tab 11/02/19 08/09/20 08/09/20 08:00 History potassium chloride 20 mEq 20 meq PO DAILY tab 11/02/19 08/09/20 08/09/20 08:00 History tablet,extended release(part/cryst) clopidogrel 75 mg tablet 75 mg PO DAILY #90 tab 12/09/19 08/09/20 08/09/20 08:00 Rx sacubitril 97 mg-valsartan 103 mg 1 tab PO BID 30 Days #60 tab 04/18/20 08/09/20 08/09/20 08:00 Rx tablet allopurinol 300 mg tablet 300 mg PO DAILY #30 tab 05/04/20 08/09/20 08/09/20 08:00 Rx Vitamin C 500 mg PO DAILY 08/09/20 08/09/20 08/09/20 08:00 History albuterol sulfate 1.25 mg INHALATION QID PRN 08/09/20 08/09/20 Unknown History aspirin 81 mg PO DAILY 08/09/20 08/09/20 08/09/20 08:00 History magnesium oxide 250 mg PO DAILY 08/09/20 08/09/20 08/09/20 08:00 History multivitamin 1 tab PO DAILY 08/09/20 08/09/20 08/09/20 08:00 History rosuvastatin 10 mg PO BEDTIME 08/09/20 08/09/20 08/08/20 21:00 History spironolactone 25 mg PO DAILY 08/09/20 08/09/20 08/09/20 08:00 History sotalol 80 mg PO BID #60 tab 08/12/20 Unknown Rx Allergies Allergy/AdvReac Type Severity Reaction Status Date / Time povidone-iodine Allergy Mild Unknown Verified 06/15/20 07:50 [From Betadine] PFSH Acute PFSH: Medical History (Updated 08/16/20 @ 01:04 by Virgilio Santana MD) AICD discharge AICD discharge Arthritis Asthma Atherosclerotic heart disease of [place] coronary artery with other forms of angina pectoris Cardiac cath in April 2019 revealed No significant disease noted in the Left Main, LAD, Circumflex, or RCA coronary arteries. The right coronary artery was extensively stented with the patent stents. LVEDP was 13 mmHg. LV gram was not performed because of theabnormal kidney function Atherosclerotic heart disease of [place] coronary artery with unstable angina pectoris Back pain Cardiomyopathy Chronic episodic atrial fibrillation Pt has massive GI bleed and is not wanting to take oral anticoagulant Combined systolic and diastolic heart failure Ejection fraction 30%, grade 1/4 diastolic dysfunction COPD (chronic obstructive pulmonary disease) Coronary artery disease Degenerative joint disease (DJD) of lumbar spine Depression Dyslipidemia Fall Gout Gout, arthritis H/O coronary angiogram Showed patent stented segment of RCA with diffuse disease in other vessels High risk medication use Immunization counseling Ischemic cardiomyopathy with implantable cardioverter-defibrillator (ICD) Mixed hyperlipidemia Neuropathy Osteoarthritis Oxygen dependent Sleep apnea uses Bipap at night with 2 L o2 Sleep apnea syndrome Sleep apnea with mood disorder Smoker Smoking Tendinopathy of rotator cuff Ventricular tachycardia Surgical History AICD (automatic cardioverter/defibrillator) present ICD placement in 2012 with generator change by Dr. Boucher on 05/21/2018 History of appendectomy History of tubal ligation Hx of tonsillectomy Family History Father Hypertension CAD (coronary artery disease) Mother Diabetes CAD (coronary artery disease) Cancer Lung disease Brother No problems noted. Sister Cancer Dementia Diabetes Family/Other CAD (coronary artery disease) Cancer Diabetes Father No problems noted. Grandmother CAD (coronary artery disease) Cancer Lung disease Grandfather CAD (coronary artery disease) Other Stroke Denies family history of Rheumatoid arthritis Lupus Clotting disorder Chronic kidney disease (CKD) Suicide Anesthesia complication Bleeding disorder Social History Smoking and tobacco status: current every day smoker cigarettes Alcohol intake: never Lives independently: Yes Marital status: / Vitals/I&O/Wt Last Vital Signs Temp 97.8 F 08/15/20 21:00 Pulse 67 08/15/20 22:00 Resp 14 08/15/20 22:00 BP 125/71 08/15/20 22:00 Pulse Ox 96 08/15/20 22:00 Weight last 48 hrs Weight 107.955 kg Physical Exam Narrative: EXAM NARRATIVE: Pleasant elderly female Sister at the bedside No active complaint of chest pain shortness of breath or abdominal pain Hemodynamically stable, EKG was being taken at the time of my evaluation Variable S1-S2, no audible hear any murmur no active signs of fluid overload Abdomen soft nontender Lower extremity no edema gangrene ulcer Awake alert oriented x3 without any neurological deficits No joint swelling or ischemia gangrene or ulcer of lower extremities Data : 08/15/20 21:17 08/15/20 21:17 A&P Assessment and plan (1) AICD discharge: AICD discharge Multiple shocks were delivered, as per the patient 6 at home and 1 in the ER Magnesium and potassium normal No active chest pain shortness of breath currently hemodynamically stable She has history of amiodarone toxicity, started lidocaine gtt. Cardiology consulted Previous angiogram did not reveal any coronary ischemia Current troponin not significantly elevated EKG without ischemic or infarct changes, likely will need EP evaluation, will follow up with cardiology recommendations AICD interrogation Status: Acute Additional A&P Information Combined systolic diastolic congestive heart failure without acute exacerbation I will decrease her Lasix to 20 mg daily as she is clinically looking euvolemic for now Sleep apnea: Uses 2 L of oxygen at night Claustrophobic to cpap Gout: Continue allopurinol Goals of care discussed with the patient in front of her sister: Ms. White only want chest compression for brief period of time but does not want intubation and she was adamant about that when I explained her the importance of oxygenation with chest compression, she would like us to stop chest compression after 10 minutes if there is no meaningful recovery, Cardiac diet DVT prophylaxis therapeutic dose of Lovenox Attestations Medical Necessity Statement*: Anticipating stay in the hospital cross more than 2 midnights for her recurrent AICD discharges for her recurrent V. fib rhythm, high risk of mortality morbidity Time Spent in Patient Care: (>than 50% of time spent in counselling and/or direct pt care on unit). 40mins Coding Level of Care Code Acute Director Industrial Nursing for Chg Fwd Diagnoses AICD discharge Z45.02
[2020-08-15 22:37] LABS: Magnesium 2.2 mg/dL (1.7-2.3)
--- NOTE | 2020-08-15 23:20 | ECG_ITS ---
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 Measurements Intervals [place] Rate: 59 P: 114 WI: 246 QRS: 42 QRSD: 113 T: 89 QT: 450 QTc: 449 Interpretive Statements ELECTRONIC ATRIAL PACEMAKER LOW QRS VOLTAGE [QRS DEFLECTION < 0.5/1.0 mV IN LIMB/CHEST LEADS] INFERIOR MYOCARDIAL INFARCTION , OF INDETERMINATE AGE [40+ ms Q WAVE AND/OR ST/T ABNORMALITY IN II/aVF] ANTEROLATERAL MYOCARDIAL INFARCTION , PROBABLY RECENT [40+ ms Q WAVE IN I/aVL/V3-V6] ACUTE MS Compared to ECG 08/15/2020 21:05:04 Sinus rhythm no longer present First degree AV block no longer present Myocardial infarct finding still present Electronically Signed On 08-17-2020 10:03:39 CDT by Ba Davis M.D. [id number]
[2020-08-16] VITALS (238 sets, daily range): BP systolic 86–164; BP diastolic 43–94; PULSE 0–143; RESP 11–27; TEMP 36.4–36.8; O2SAT 87–100
[2020-08-16] MEDS: enoxaparin 120 mg/0.8 mL Syringe 110 MG SUBCUT ×2 (01:10→14:56)
[2020-08-16 01:38] LABS: D Dimer 1.29 ug/mIFEU (0-0.59)
--- NOTE | 2020-08-16 01:58 | PC.NURSE ---
Called Dr. Santana, pt had 90 sec run of vtach, then converted back to NSR. Also notified him of EKG readings earlier, No new orders at this time. Continue care.
--- NOTE | 2020-08-16 03:20 | ECG_ITS ---
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 Measurements Intervals [place] Rate: 54 P: 70 SD: 248 QRS: -5 QRSD: 117 T: 21 QT: 450 QTc: 429 Interpretive Statements LOW QRS VOLTAGE [QRS DEFLECTION < 0.5/1.0 mV IN LIMB/CHEST LEADS] INFERIOR MYOCARDIAL INFARCTION [40+ ms Q WAVE AND/OR ST/T ABNORMALITY IN II/aVF], OF INDETERMINATE AGE ANTEROLATERAL MYOCARDIAL INFARCTION [40+ ms Q WAVE IN I/aVL/V3-V6], OF INDETERMINATE AGE Compared to ECG 08/15/2020 23:42:31 Atrial-paced complex(es) or rhythm no longer present Myocardial infarct finding still present Electronically Signed On 08-17-2020 10:03:24 CDT by Ba Davis M.D. [id number]
[2020-08-16 03:50] LABS: Anion Gap 14.3 (5-19); Blood Urea Nitrogen 19 mg/dL (8-23); Calcium 8.7 mg/dL (8.5-10.5); Carbon Dioxide 23 mmol/L (22-29); Chloride 104 mmol/L (98-107); Glomerular Filtration Rate 62.8 mL/min (90-130); Glucose 110 mg/dL (65-115); Osmolality Calculated 287 mOsm/kg (285-295); Potassium 4.3 mmol/L (3.5-5.1); Sodium 137 mmol/L (136-145)
[2020-08-16 07:08] LABS: Magnesium 2.4 mg/dL (1.7-2.3)
--- NOTE | 2020-08-16 08:00 | PC.NURSE ---
This AM patient refused Potassium because she usually takes it at night. Will offer later in shift.
[2020-08-16] MEDS: aspirin 81 mg Chew Tablet PO (08:09)
[2020-08-16] MEDS: FUROsemide 20 mg Tablet PO (08:10)
[2020-08-16] MEDS: clopidogrel 75 mg Tablet PO (08:10)
[2020-08-16] MEDS: allopurinol 300 mg Tablet PO (08:11)
[2020-08-16] MEDS: gabapentin 300 mg Capsule PO ×3 (08:11→19:36)
--- NOTE | 2020-08-16 08:27 | PC.PHAR ---
pt states she is unsure of all the names of her medications-pt states she takes care of her own medications-medications entered are from what ext med history shows has been filled recently and what medication the pt could verify-ext med history shows mexiletine 200mg q12h filled on 08/10/20 30d/s pt states she cant afford the medication and states she is not taking that medication-
--- NOTE | 2020-08-16 08:35 | PC.NURSE ---
Dr. Carbone at bedside when telemetry on monitor read vtach that lasted 60 seconds at approximately 0827. Patient was awake and sitting up but not speaking due to chest discomfort. When patient returned to sinus rhythm and stated that she felt one shock from implanted defibrillator. Cardiology consulted.
[2020-08-16] MEDS: lidocaine drip 2,000 MG/500 ML PREMIX 60 MG IV ×2 (08:45→17:55)
--- NOTE | 2020-08-16 09:22 | PM.CONSULT ---
Providers/Reason For Consult Consulting Physican/Specialty*: Ba Davis MD/ Cardiology Reason for Consult*: Ventricular tachycardia/ICD shocks Requesting Physcian: Dr Juan Babin Attending Physician: Tom Carbone MD Primary Care Provider: Lois Sorto History of Present Illness History of Present Illness Amber White is a 65 year old female who has history of chronic atrial fibrillation, ischemic cardiomyopathy PCI to right coronary artery multiple times in the past, mixed systolic diastolic congestive heart failure status post AICD placement (EF 30%), ICD discharge in April 2019 status post cardiac cath without any intervention(stents were patent), presented with chief concern of her AICD firing. He was recently discharged from the hospital with similar complaints. She was put on sotalol 80 mg twice daily as says she has amiodarone toxicity history. She also had undergone coronary angiogram that showed normal coronary arteries and patent RCA stents. According to patient she started again feeling palpitations on the day of her discharge. It got worse yesterday and she had ICD discharge. This occurred multiple times. Overnight in the hospital also she had multiple episodes. She has been on lidocaine drip since last night. Her sotalol has been uptitrated to 120 mg twice daily. Review of Systems Const: Denies: fever(s) Eyes: Denies: change in vision ENMT: Denies: throat pain Card: Reports: chest pain Resp: Denies: dyspnea GI: Denies: abdominal pain : Denies: flank pain Musc: Denies: neck pain Skin/Breast: Denies: rash Neuro: Denies: headache(s) Psych: Denies: anxiety Endo: Denies: polyuria Mert/Lymph: Denies: easy bruising All/Imm: Denies: urticaria Meds/Allergies Home Medications and Allergies Home Medications Medication Instructions Recorded Confirmed Last Taken Type budesonide-formoterol [Symbicort] 2 puff INHALATION BID 04/15/19 08/16/20 08/09/20 08:00 History gabapentin 300 mg PO BID 04/15/19 08/16/20 08/09/20 12:00 History levocetirizine 5 mg PO DAILY 04/15/19 08/16/20 08/09/20 08:00 History furosemide 40 mg tablet 40 mg PO BID tab 11/02/19 08/16/20 08/09/20 08:00 History potassium chloride 20 mEq 20 meq PO BID tab 11/02/19 08/16/20 08/09/20 08:00 History tablet,extended release(part/cryst) clopidogrel 75 mg tablet 75 mg PO DAILY #90 tab 12/09/19 08/16/20 08/09/20 08:00 Rx sacubitril 97 mg-valsartan 103 mg 1 tab PO BID 30 Days #60 tab 04/18/20 08/16/20 08/09/20 08:00 Rx tablet allopurinol 300 mg tablet 300 mg PO DAILY #30 tab 05/04/20 08/16/20 08/09/20 08:00 Rx ascorbic acid (vitamin C) [Vitamin 500 mg PO DAILY 08/09/20 08/16/20 08/09/20 08:00 History C] aspirin 81 mg PO DAILY 08/09/20 08/16/20 08/09/20 08:00 History magnesium oxide 250 mg PO DAILY 08/09/20 08/16/20 08/09/20 08:00 History multivitamin 1 tab PO DAILY 08/09/20 08/16/20 08/09/20 08:00 History rosuvastatin 10 mg PO BEDTIME 08/09/20 08/16/20 08/08/20 21:00 History spironolactone 25 mg PO DAILY 08/09/20 08/16/20 08/09/20 08:00 History sotalol 80 mg PO BID #60 tab 08/12/20 08/16/20 Unknown Rx Fish Oil 1 cap PO DAILY 08/16/20 08/16/20 Unknown History albuterol sulfate 2.5 mg INHALATION Q6H PRN 08/16/20 08/16/20 Unknown History albuterol sulfate [Ventolin HFA] 1 - 2 puff INHALATION QID PRN 08/16/20 08/16/20 Unknown History nitroglycerin [Nitrostat] 0.4 mg SUBLINGUAL Q5M PRN 08/16/20 08/16/20 Unknown History Allergies Allergy/AdvReac Type Severity Reaction Status Date / Time povidone-iodine Allergy Mild Unknown Verified 06/15/20 07:50 [From Betadine] Current Medications Current Medications Generic Name Dose Route Start Last Admin Trade Name Freq PRN Reason Stop Dose Admin Allopurinol 300 mg 08/16/20 09:00 08/16/20 08:11 Allopurinol 300 Mg Tablet PO 300 mg DAILY MINGO Administration Aspirin 81 mg 08/16/20 09:00 08/16/20 08:09 Aspirin 81 Mg Chew Tablet PO 81 mg DAILY MINGO Administration Clopidogrel Bisulfate 75 mg 08/16/20 09:00 08/16/20 08:10 Clopidogrel 75 Mg Tablet PO 75 mg DAILY MINGO Administration Enoxaparin Sodium 110 mg 08/16/20 01:30 08/16/20 01:10 Enoxaparin 120 Mg/0.8 Ml Syringe SUBCUT 110 mg Q12H MINGO Administration Furosemide 20 mg 08/16/20 09:00 08/16/20 08:10 Furosemide 20 Mg Tablet PO 20 mg DAILY MINGO Administration Gabapentin 300 mg 08/16/20 09:00 08/16/20 08:11 Gabapentin 300 Mg Capsule PO 300 mg TID MINGO Administration Lidocaine HCl/Dextrose 2,000 mg in 500 mls @ 30 mls/hr 08/15/20 21:15 08/16/20 08:45 Lidocaine Drip IV 4 mg/min .[id number] MINGO 60 mls/hr Administration 2 MG/MIN Ipratropium [place] 2 puff 08/16/20 08:00 08/16/20 08:00 Ipratropium 12.9 Gm Mdi INHALATION 2 puff QID.RESPIRATORY MINGO Administration Fluticasone/Salmeterol 1 puff 08/16/20 09:00 08/16/20 08:01 Fluticasone-Salmeterol 500-50 Diskus INHALATION 1 puff BID MINGO Administration PFSH Acute PFSH: Medical History AICD discharge AICD discharge Arthritis Asthma Atherosclerotic heart disease of [place] coronary artery with other forms of angina pectoris Cardiac cath in April 2019 revealed No significant disease noted in the Left Main, LAD, Circumflex, or RCA coronary arteries. The right coronary artery was extensively stented with the patent stents. LVEDP was 13 mmHg. LV gram was not performed because of theabnormal kidney function Atherosclerotic heart disease of [place] coronary artery with unstable angina pectoris Back pain Cardiomyopathy Chronic episodic atrial fibrillation Pt has massive GI bleed and is not wanting to take oral anticoagulant Combined systolic and diastolic heart failure Ejection fraction 30%, grade 1/4 diastolic dysfunction COPD (chronic obstructive pulmonary disease) Coronary artery disease Degenerative joint disease (DJD) of lumbar spine Depression Dyslipidemia Fall Gout Gout, arthritis H/O coronary angiogram Showed patent stented segment of RCA with diffuse disease in other vessels High risk medication use Immunization counseling Ischemic cardiomyopathy with implantable cardioverter-defibrillator (ICD) Mixed hyperlipidemia Neuropathy Osteoarthritis Oxygen dependent Sleep apnea uses Bipap at night with 2 L o2 Sleep apnea syndrome Sleep apnea with mood disorder Smoker Smoking Tendinopathy of rotator cuff Ventricular tachycardia Surgical History AICD (automatic cardioverter/defibrillator) present ICD placement in [address] Dr[address] Boucher on 05/21/2018 History of appendectomy History of tubal ligation Hx of tonsillectomy Family History Father Hypertension CAD (coronary artery disease) Mother Diabetes CAD (coronary artery disease) Cancer Lung disease Brother No problems noted. Sister Cancer Dementia Diabetes Family/Other CAD (coronary artery disease) Cancer Diabetes Father No problems noted. Grandmother CAD (coronary artery disease) Cancer Lung disease Grandfather CAD (coronary artery disease) Other Stroke Denies family history of Rheumatoid arthritis Lupus Clotting disorder Chronic kidney disease (CKD) Suicide Anesthesia complication Bleeding disorder Social History Smoking and tobacco status: current every day smoker cigarettes Alcohol intake: never Lives independently: Yes Marital status: / Vitals/I&O/Wt Last Vital Signs Temp 98.2 F 08/16/20 00:35 Pulse 60 08/16/20 08:06 Resp 14 08/16/20 07:59 BP 115/58 08/16/20 06:05 Pulse Ox 96 08/16/20 07:59 08/15/20 08/16/20 08/16/20 22:59 06:59 14:59 Intake Total 251.5 / 251.5 368.5 / 368.5 Output Total 500 / 500 Balance -248.5 / -248.5 368.5 / 368.5 Weight last 48 hrs Weight 250 lb 2 oz Weight 238 lb Physical Exam Narrative: EXAM NARRATIVE: GENERAL: Patient is alert, awake and oriented x3. [] NECK: No jugular vein distension. [] HEENT: No cyanosis. No icterus. No pallor. [] HEART: Regular S1 and S2. No murmur, rub or gallop. [] LUNGS: Clear to auscultate bilaterally. [] ABDOMEN: Soft, nontender and nondistended. Positive bowel sounds. No guarding, rebound or tenderness. [] CENTRAL NERVOUS SYSTEM: Grossly nonfocal. [] EXTREMITIES: Lower extremities with no edema bilaterally. Pulses palpable in the lower extremities, both dorsalis pedis and posterior tibial. [] A&P Assessment and plan (1) Ventricular tachycardia: (2) AICD discharge: (3) Mixed hyperlipidemia: (4) Chronic episodic atrial fibrillation: (5) Ischemic cardiomyopathy with implantable cardioverter-defibrillator (ICD): (6) Sleep apnea syndrome: Qualifiers: Sleep apnea type: obstructive Qualified Code(s): G47.33 - Obstructive sleep apnea (adult) (pediatric) (7) COPD (chronic obstructive pulmonary disease): (8) Coronary artery disease: Qualifiers: Coronary Disease-Associated Artery/Lesion type: due to calcified coronary lesion Qualified Code(s): I25.10 - Atherosclerotic heart disease of [place] coronary artery without angina pectoris; I25.84 - Coronary atherosclerosis due to calcified coronary lesion Patient has ischemic cardiomyopathy and has been having multiple VT episodes leading to ICD firing. She had a recent admission with similar complaints. She was started on sotalol 80 mg twice daily at that time. Patient underwent a coronary angiography that showed normal coronary arteries with patent stents in the RCA. Keep monitoring electrolytes with goal of potassium more than 4 and magnesium more than 2. Continue lidocaine drip. 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 Uptitrate sotalol to 120 mg twice daily. During her last hospital admission we tried giving her mexiletine however she was concerned with the cost of the medication and did not want to have it. I had a discussion regarding the need for a ventricular tachycardia ablation procedure. Previously she was reluctant to undergo it however it appears that she is refractory to medications and may need that. We will have a discussion regarding that again. She is more open to it now. Stay in ICU for now. Thank you for involving us with the care of this patient. We will continue to follow the patient. Please call with questions. Coding Level of Care Code Acute Manager Business Management for Chg Fwd Diagnoses Ventricular tachycardia I47.2 AICD discharge Z45.02 Mixed hyperlipidemia E78.2 Chronic episodic atrial fibrillation I48.20 Ischemic cardiomyopathy with implantable cardioverter-defibrillator (ICD) I25.5; Z95.810 Sleep apnea syndrome G47.33 Sleep apnea type: obstructive COPD (chronic obstructive pulmonary disease) J44.9 Coronary artery disease I25.10; I25.84 Coronary Disease-Associated Artery/Lesion type: due to calcified coronary lesion
--- NOTE | 2020-08-16 09:45 | PC.NURSE ---
Patients family member came out to nurses station and asked for power of estate attorney paperwork. This nurse called social media project manager with no answer. Left voicemail
[2020-08-16] MEDS: sotalol 80 mg Tablet 120 MG PO ×2 (10:02→19:36)
[2020-08-16] MEDS: sacubitril/valsartan 24-26 mg Tablet 4 EACH PO ×2 (10:02→17:55)
[2020-08-16] MEDS: cefTRIAXone 1,000 MG in sodium chloride 0.9% (plus) 50 ML 100 MG IV (10:02)
--- NOTE | 2020-08-16 11:31 | P.PN_ITS ---
Subjective Subjective: Interval history: Patient was examined this morning, she did tell me that she had an episode of V. tach overnight, her ICD did fire, currently denies any chest pain, no shortness of breath, no lightheadedness, no dizziness, no nausea, no vomiting, during my discussion with her, patient developed an episode of V. tach, heart rates as high as 150s, lasting for about 20 seconds, her ICD did fire, she went back into normal sinus rhythm, she did have some anterior chest discomfort during the episode, no loss of pulse, no hemodynamic compromise, no loss of consciousness, was doing better afterwards, I spoke to Dr. Davis, he recommended to start sotalol 100 twice daily, and if patient continues to have episodes of V. 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 but as she continues to have arrhythmia events the benefit will outweigh the risks, and she might possibly require transfer for ablation, patient was reexamined half an hour later, her sister was at bedside, she is doing better, no chest pain, no shor tness of breath, no recurrent arrhythmia events, I have gone over the plan with her, she voiced understanding, all questions answered, agreed to proceed, in addition I have resumed her Entresto Vitals/I&O/Wt Last Vital Signs Temp 97.6 F 08/16/20 09:00 Pulse 66 08/16/20 11:15 Resp 14 08/16/20 11:15 BP 106/67 08/16/20 11:00 Pulse Ox 96 08/16/20 10:50 08/15/20 08/16/20 08/16/20 22:59 06:59 14:59 Intake Total 251.5 / 251.5 368.5 / 368.5 Output Total 500 / 500 900 / 900 Balance -248.5 / -248.5 -531.5 / -531.5 Weight last 48 hrs Weight 113.455 kg Weight 107.955 kg Physical Exam Const: ORIENTATION/CONSCIOUSNESS: Yes awake, Yes oriented to person, Yes oriented to place and Yes oriented to time Resp: COMMON NORMALS: normal respiratory effort, No retractions, No use of accessory muscles and clear to auscultation bilaterally AUSCULTATION: clear to auscultation bilaterally Cardio: COMMON NORMALS: regular rate, regular rhythm, S1 normal heart sound present and S2 normal heart sound present RATE: regular rate RHYTHM: regular rhythm HEART SOUNDS: S1 normal heart sound present and S2 normal heart sound present GI: COMMON NORMALS: Normal to inspection, nondistended, normoactive bowel sounds present, Soft to palpation and non-tender PALPATION: Yes Soft to palpation Extremity: COMMON NORMALS: no pedal edema Neuro: SENSORIUM/ORIENTATION: Yes oriented to person, Yes oriented to place and Yes oriented to time Data : 08/15/20 21:17 08/16/20 02:50 A&P Assessment and plan (1) AICD discharge: AICD discharge Multiple shocks were delivered, as per the patient 6 at home and 1 in the ER One episode of V. tach overnight, resulting in shocking One episode of V. tach in front of me, lasting for 20 to 30 seconds, heart rates as high as 150, no hemodynamic compromise, resulting in firing, back to normal sinus rhythm Magnesium and potassium normal No active chest pain shortness of breath currently hemodynamically stable Currently on lidocaine drip, maximum dose of 4 Sotalol 100 twice daily was started, patient tells me that she been taking this at home At home she was not able to take the mexiletine due to insurance coverage issues If she continues to have episodes of arrhythmia, we will have to put her on amiodarone drip, benefits will outweigh risk, She might require transfer for ablation procedure Cardiology consulted Previous angiogram did not reveal any coronary ischemia Current troponin not significantly elevated EKG did show some anterior lateral ischemia, was started on therapeutic Lovenox, likely will need EP evaluation, will follow up with cardiology recommendations AICD interrogation Plan for today, continue lidocaine drip, continue sotalol, consider adding amiodarone, monitor for recurrent arrhythmia events, cardiology on consult, possible transfer for ablation procedure for ventricular arrhythmia Status: Acute Additional A&P Information Combined systolic diastolic congestive heart failure without acute exacerbation I will decrease her Lasix to 20 mg daily as she is clinically looking euvolemic for now Sleep apnea: Uses 2 L of oxygen at night Claustrophobic to cpap Gout: Continue allopurinol Goals of care discussed with the patient in front of her sister: Ms. White only want chest compression for brief period of time but does not want intubation and she was adamant about that when I explained her the importance of oxygenation with chest compression, she would like us to stop chest compression after 10 minutes if there is no meaningful recovery, Cardiac diet DVT prophylaxis therapeutic dose of Lovenox Attestations Medical Necessity Statement*: Patient requires hospitalization for recurrent V. tach episode, AICD discharge, averse to medical therapy Coding Level of Care Code Acute Research Dairy Farm Supervisor for Chg Fwd Diagnoses AICD discharge Z45.02
--- NOTE | 2020-08-16 12:09 | PM.PN ---
Subjective Subjective: Interval history: Patient apparently was readmitted to the hospital with recurrence of ventricular tachycardia. She had multiple paced terminated episodes of V. tach last night. This morning she had another episode of VT which also was terminated with overdrive pacing. Currently she is on a lidocaine drip. The dose of the sotalol was increased to 120 mg p.o. twice daily. Patient denies any chest pain or chest tightness. No fever or chills. No cough. No other specific complaints. Patient apparently had a problems with amiodarone treatment in the past-he developed blurring of vision in the right eye and some nonspecific symptoms of weakness/dizziness and tremor. So this medicine was discontinued 2 years ago. Medications: Reviewed: Yes Medication Review Details: Current Medications Albuterol Sulfate (Albuterol 2.5 Mg/0.5 Ml Neb) 1.25 mg INHALATION QID PRN PRN Reason: Shortness Of Breath Or Wheezing Allopurinol (Allopurinol 300 Mg Tablet) 300 mg PO DAILY [facility] Last Admin: 08/16/20 08:11 Dose: 300 mg Documented by: Aspirin (Aspirin 81 Mg Chew Tablet) 81 mg PO DAILY [facility] Last Admin: 08/16/20 08:09 Dose: 81 mg Documented by: Atorvastatin Calcium (Atorvastatin 40 Mg Tablet) 40 mg PO BEDTIME [facility] Clopidogrel Bisulfate (Clopidogrel 75 Mg Tablet) 75 mg PO DAILY [facility] Last Admin: 08/16/20 08:10 Dose: 75 mg Documented by: Enoxaparin Sodium (Enoxaparin 120 Mg/0.8 Ml Syringe) 110 mg SUBCUT Q12H [facility] Last Admin: 08/16/20 01:10 Dose: 110 mg Documented by: Furosemide (Furosemide 20 Mg Tablet) 20 mg PO DAILY [facility] Last Admin: 08/16/20 08:10 Dose: 20 mg Documented by: Gabapentin (Gabapentin 300 Mg Capsule) 300 mg PO TID [facility] Last Admin: 08/16/20 08:11 Dose: 300 mg Documented by: Lidocaine HCl/Dextrose (Lidocaine Drip) 2,000 mg in 500 mls @ 30 mls/hr IV .[id number] [facility] Last Admin: 08/16/20 08:45 Dose: 4 mg/min, 60 mls/hr Documented by: Ceftriaxone Sodium 1,000 mg/ (Sodium Chloride) 50 mls @ 100 mls/hr IV Q24H [facility]; Protocol Last Admin: 08/16/20 10:02 Dose: 100 mls/hr Documented by: Ipratropium [place] (Ipratropium 12.9 Gm Mdi) 2 puff INHALATION QID.RESPIRATORY [facility] Last Admin: 08/16/20 11:11 Dose: Not Given Documented by: Nitroglycerin (Nitroglycerin 0.4 Mg Sublingual Tablet) 0.4 mg SUBLINGUAL PRN [facility] Non-Formulary Medication (Magnesium Oxide) 250 mg PO DAILY [facility] Last Admin: 08/16/20 09:36 Dose: Not Given Documented by: Potassium Chloride (Potassium Chloride Er 20 Meq Tablet) 20 meq PO DAILY [facility] Last Admin: 08/16/20 09:36 Dose: Not Given Documented by: Sacubitril/Valsartan (Sacubitril/Valsartan 24-26 Mg Tablet) 4 each PO BID [facility] Last Admin: 08/16/20 10:02 Dose: 4 each Documented by: Fluticasone/Salmeterol (Fluticasone-Salmeterol 500-50 Diskus) 1 puff INHALATION BID [facility] Last Admin: 08/16/20 08:01 Dose: 1 puff Documented by: Sotalol HCl (Sotalol 80 Mg Tablet) 120 mg PO BID@0900,2100 [facility] Last Admin: 08/16/20 10:02 Dose: 120 mg Documented by: Vitals/I&O/Wt Last Vital Signs Temp 97.6 F 08/16/20 09:00 Pulse 66 08/16/20 11:15 Resp 14 08/16/20 11:15 BP 106/67 08/16/20 11:00 Pulse Ox 96 08/16/20 10:50 08/15/20 08/16/20 08/16/20 22:59 06:59 14:59 Intake Total 251.5 / 251.5 368.5 / 368.5 Output Total 500 / 500 900 / 900 Balance -248.5 / -248.5 -531.5 / -531.5 Weight last 48 hrs Weight 250 lb 2 oz Weight 238 lb Physical Exam Narrative: EXAM NARRATIVE: GENERAL: The patient is alert and oriented times three. Not in any acute distress. Obese HEENT: No significant pallor, icterus or lymphadenopathy.Oral cavity: There are no mucous membrane lesions. NECK: Trachea appears to be central. No masses noted. No JVD or thyromegaly appreciated. RESPIRATORY: Chest is symmetrical. No intercostals muscle retraction or any accessory muscle activation. There is no chest wall tenderness. Breath sounds are heard bilaterally. No rales or rhonchi heard. No evidence of any consolidation. [] BREASTS: Deferred. [] HEART: The heart sounds are normal. No S3 or S4. Short systolic murmur in the left sternal border. No diastolic murmurs. No pericardial rub ABDOMEN: No vessel pulsations or distention. No tenderness. No organomegaly appreciated. Bowel sounds are normally heard. [] : Deferred. [] RECTAL: Deferred. [] LYMPHATIC: No lymphadenopathy noted in the neck or groin. [] EXTREMITIES: No edema or cyanosis. No clubbing. Peripheral pulses are palpated in fairly good volume and amplitude MUSCULOSKELETAL: No acute joint deformities or swelling SKIN: There are no significant rashes or ecchymosis NEUROPSYCHIATRIC: The patient is alert and oriented x3. Appears to be in a good mood. No tremors or rigidity noted. [] Data : 08/15/20 21:17 08/16/20 02:50 Other Labs: Cardiac catheterization on 04/15/2019 Diagnostic Findings LM has 0% stenosis. LAD has 0% stenosis. CX has 0% stenosis. RCA is a medium caliber vessel which is extensively stented from the ostium to the bifurcation, extending into the proximal segment of the PDA. The stent was found to be widely patent. No other significant stenotic lesion. The PLV branch was found to have minimal ostial narrowing. Coronary angiography shows right dominance.Diagnostic Findings LM has 0% stenosis. LAD has 0% stenosis. CX has 0% stenosis. RCA is a medium caliber vessel which is extensively stented from the ostium to the bifurcation, extending into the proximal segment of the PDA. The stent was found to be widely patent. No other significant stenotic lesion. The PLV branch was found to have minimal ostial narrowing. Coronary angiography shows right dominance. A&P Assessment and plan (1) AICD discharge: AICD was interrogated early this morning. Patient was found to have a 14 pace terminated episodes of V. tach. And 1 shock terminated episode, since 09 of August. The patient is currently on IV lidocaine. The dose of the sotalol was increased to 120 mg p.o. twice daily this morning. Since she seems to be fairly stable, I may hold off on any medication changes at this time. It may benefit from VT ablation. Status: Acute (2) Atherosclerotic heart disease of [place] coronary artery with other forms of angina pectoris: Patient currently has no chest pain or chest tightness. She had the cardiac catheterization a week ago and was found to have patent RCA with extensive stents. The LAD and circumflex arteries were found to have mild diffuse disease. Status: Acute (3) Cardiomyopathy: Patient had elevation fraction of 30% by echocardiogram in 2019. She has not had a recent echocardiogram. She may have a nonischemic component for the cardiomyopathy. Apparently the left-sided ascending artery and the circumflex artery were found to have no significant disease. Status: Chronic Qualifiers: Cardiomyopathy type: ischemic Qualified Code(s): I25.5 - Ischemic cardiomyopathy (4) Sleep apnea: May continue on the current measures. Status: Acute Qualifiers: Sleep apnea type: obstructive Qualified Code(s): G47.33 - Obstructive sleep apnea (adult) (pediatric) (5) Dyslipidemia: Status: Chronic (6) AICD (automatic cardioverter/defibrillator) present: This is the third ICD that the patient is having. Most recent revision was done on 05/21/2018. Status: Chronic Attestations Medical Necessity Statement*: Patient requires continued hospital stay for close monitoring and further management. Patient may benefit from VT ablation, if it is feasible. Contacted [facility] in [place]. Because of the complexity of the case, recommended to contact [facility]. I will be contacting the on-call doctor supervisor nut processing at the [facility] in [place]. I discussed with (Electro supervisor nut processing) at the [facility] in [place] about this patient. Dr. Duque accepted her transfer for further management. I also discussed with , the ICU attending about this patient's condition. Most likely she will be transferred tonight to the [facility]. In the meanwhile, may continue on the current medications. Coding Level of Care Code Acute Manager Pathology for [facility] Medical Decision Making High Complexity Diagnoses AICD discharge Z45.02 Atherosclerotic heart disease of [place] coronary artery with other forms of angina pectoris I25.118 Cardiomyopathy I25.5 Cardiomyopathy type: ischemic Sleep apnea G47.33 Sleep apnea type: obstructive Dyslipidemia E78.5 AICD (automatic cardioverter/defibrillator) present Z95.810 Time Spent (min) 40
--- NOTE | 2020-08-16 13:18 | USCV_ITS ---
Amber White Age: 65 Gender: F : 1955 Exam Date: 08/16/2020 15:34 Ordering Phys: Lee Saldaña MD ([email or web address]) Technologist: Anel Pate Exam Location: [facility] [place] Indication: CARDIOMYO VTACH BP: 128 / 68 HR: 86 Rhythm: Sinus Technical Quality: Fair MEASUREMENTS (Male / Female) Normal Values 2D ECHO LV Diastolic Diameter PLAX 5.7 cm 4.2 - 5.9 / 3.9 - 5.3 cm LV Systolic Diameter PLAX 4.5 cm IVS Diastolic Thickness 1.0 cm 0.6 - 1.0 / 0.6 - 0.9 cm IVS Systolic Thickness 1.5 cm LVPW Diastolic Thickness 1.0 cm 0.6 - 1.0 / 0.6 - 0.9 cm LVPW Systolic Thickness 1.9 cm LVOT Diameter 2.0 cm LV Ejection Fraction 2D Teich 42.9 % LV Ejection Fraction MOD 2C 46.1 % LV Ejection Fraction 2C AL 48.9 % LA Diameter 3.2 cm LA Width 2.9 cm LA Height 5.3 cm RA Width 3.5 cm RA Height 5.4 cm Aorta at Sinotubular Diameter 2.8 cm M-MODE LV Diastolic Diameter MM 6.1 cm 4.2 - 5.9 / 3.9 - 5.3 cm LV Systolic Diameter MM 4.3 cm LV Ejection Fraction MM Teich 55.9 % IVS Diastolic Thickness MM 0.7 cm 0.6 - 1.0 / 0.6 - 0.9 cm IVS Systolic Thickness MM 1.6 cm LVPW Diastolic Thickness MM 1.2 cm 0.6 - 1.0 / 0.6 - 0.9 cm LVPW Systolic Thickness MM 1.8 cm Aortic Annulus Diameter 3.0 cm LA Ao Ratio MM 1.1 MV E Point Septal Separation 1.5 cm DOPPLER AV Peak Velocity 141.0 cm/s LVOT Peak Velocity 83.0 cm/s AV Area Cont Eq vti 1.9 cm squared AV Area Cont Eq pk 1.8 cm squared MV E' Velocity 3.0 cm/s TR Peak Velocity 194.2 cm/s TR Peak Gradient 15.1 mmHg Right Atrial Pressure 3.0 mmHg Pulmonary Artery Systolic Pressu 18.1 mmHg PV Peak Velocity 105.0 cm/s RV Acceleration Time 0.1 s RV Ejection Time 0.3 s RV AcT/ET 0.4 FINDINGS Left Ventricle Diffuse hypokinesis of the left ventricle with almost akinetic apex. LV ejection fraction around 35%(visual0 Right Ventricle Possibly of normal size ejection fraction Right Atrium Right atrium not well visualized. Left Atrium Mildly increased left atrial size. Mitral Valve Thickened mitral valve. Mild-moderate mitral valve regurgitation. Aortic Valve Thickened aortic valve. Tricuspid Valve No gross abnormalities noted Pulmonic Valve Pulmonic valve not well visualized. Pericardium Normal pericardium without effusion. Aorta Normal aortic annulus size. CONCLUSIONS Diffuse hypokinesis of the left ventricle with almost akinetic apex. LV ejection fraction around 35%(visual) Mildly increased left atrial size. Thickened aortic and mitral valves. Mild-moderate mitral valve regurgitation. There is no pericardial effusion. There are no intracardiac masses. ICD/pacemaker wire in the right atrium and right ventricle Compared to the previous study from 01/21/2019, there may not be a significant change Technically difficult study because of the poor ultrasonic window Dr Lee Saldaña MD FAC (Electronically Signed) Final Date: 16 Aug 2020 17:13 S
[2020-08-16] MEDS: acetaminophen 325 mg Tablet 650 MG PO (16:15)
--- NOTE | 2020-08-16 17:11 | PM.TDS ---
Transfer Summary Providers Date of Admission: 08/15/20 22:28 Date of Discharge: 08/16/20 Attending Provider at Admission: Virgilio Santana MD Attending Provider at Transfer: Tom Carbone MD Primary Care Provider: Lois Sorto Anticipated Date of Transfer: Anticipated date of transfer: 08/16/20 Receiving Facility & Provider: Receiving Provider: [] Receiving facility: [] Diagnoses at Discharge Discharge Diagnosis (1) AICD discharge: Status: Acute (2) Atherosclerotic heart disease of [place] coronary artery with other forms of angina pectoris: Status: Acute Permanent problem details: Cardiac cath in April 2019 revealed No significant disease noted in the Left Main, LAD, Circumflex, or RCA coronary arteries. The right coronary artery was extensively stented with the patent stents. LVEDP was 13 mmHg. LV gram was not performed because of theabnormal kidney function (3) Cardiomyopathy: Status: Chronic Qualifiers: Cardiomyopathy type: ischemic Qualified Code(s): I25.5 - Ischemic cardiomyopathy (4) Sleep apnea: Status: Acute Permanent problem details: uses Bipap at night with 2 L o2 Qualifiers: Sleep apnea type: obstructive Qualified Code(s): G47.33 - Obstructive sleep apnea (adult) (pediatric) (5) Dyslipidemia: Status: Chronic (6) AICD (automatic cardioverter/defibrillator) present: Status: Chronic Permanent problem details: ICD placement in 2012 with generator change [address] Dr. Boucher on 05/21/2018 Reason for Visit Reason for Visit: CP Hospital Course Hospital Course Amber White is a 65 year old female who has history of chronic atrial fibrillation, ischemic cardiomyopathy PCI to right coronary artery multiple times in the past, mixed systolic diastolic congestive heart failure status post AICD placement(EF 30%), ICD discharge in April 2019 status post cardiac cath without any intervention(stents were patent), was recently discharged from the hospital after management of AICD discharge 08/09, ( 3 episodes of V fib, ATP at 6 AM two shocks delivered at 10 AM and 4 PM), cardiology took her for coronary angiogram next day which was unremarkable, she was discharged on sotalol, her insurance was not able to cover mexiletine, with a history of amiodarone toxicity, who presents to [facility] due to complaints of AICD discharge Patient was admitted to [facility] for AICD discharge, she had 14 pace terminate episodes of V. tach in 1 shock terminated episode since August 09, was placed on a lidocaine drip, she had another episode of V. tach which was terminated with override pacing early in the morning, her sotalol dose was increased to 120 mg twice daily. Since then, she is not had any recurrent V. tach episodes, cardiology was consulted, recommended transfer to [facility] for VT ablation For UTI she was placed on Rocephin Physical Exam Const: COMMON NORMALS: no acute distress and patient oriented x3 HENMT: COMMON NORMALS: normocephalic HEAD & SCALP: normocephalic Neck/C-Spine: COMMON NORMALS: no JVD Resp: COMMON NORMALS: normal respiratory effort, No retractions, No use of accessory muscles and clear to auscultation bilaterally AUSCULTATION: clear to auscultation bilaterally Cardio: COMMON NORMALS: no JVD, regular rate, regular rhythm, S1 normal heart sound present and S2 normal heart sound present RATE: regular rate RHYTHM: regular rhythm HEART SOUNDS: S1 normal heart sound present and S2 normal heart sound present GI: COMMON NORMALS: Normal to inspection, nondistended, normoactive bowel sounds present, Soft to palpation, non-tender and No hepatosplenomegaly present PALPATION: Yes Soft to palpation and Yes No hepatosplenomegaly present Extremity: COMMON NORMALS: no pedal edema Neuro: COMMON NORMALS: patient oriented x3 Psych: COMMON NORMALS: mental status grossly normal TS Data Data Completed and Pending: Completed Studies During Hospitalization Category Date Time Status XR chest 1V gracie ble [id number] Stat Exams 08/15/20 21:20 Completed Pending at discharge Category Date Time Status Complete Blood Co unt w/Auto AM LABS Lab 08/17/20 04:00 Ordered Complete Blood Co unt w/Auto AM LABS Lab 08/18/20 04:00 Ordered Complete Blood Co unt w/Auto AM LABS Lab 08/19/20 04:00 Ordered Comprehensive Met abolic Panel AM LA BS Lab 08/17/20 04:00 Ordered Comprehensive Met abolic Panel AM LA BS Lab 08/18/20 04:00 Ordered Comprehensive Met abolic Panel AM LA BS Lab 08/19/20 04:00 Ordered Magnesium AM LABS Lab 08/17/20 04:00 Ordered Magnesium AM LABS Lab 08/18/20 04:00 Ordered Magnesium AM LABS Lab 08/19/20 04:00 Ordered Phosphorus AM LAB S Lab 08/17/20 04:00 Ordered Phosphorus AM LAB S Lab 08/18/20 04:00 Ordered Phosphorus AM LAB S Lab 08/19/20 04:00 Ordered CV echo complete* [id number] Routine Ultrasound 08/16/20 13:18 Taken Labs from last 24 hours 08/16/20 08/16/20 08/16/20 02:50 02:50 02:50 WBC RBC Hgb Hct MCV MCH MCHC RDW Plt Count MPV Neut % (Auto) Lymph % (Auto) Walsh % (Auto) Eos % (Auto) Baso % (Auto) Neut # (Auto) Lymph # (Auto) Walsh # (Auto) Eos # (Auto) Baso # (Auto) Nucleated RBC % (a uto) Nucleated RBCs # PT INR APTT D-Dimer Sodium 137 Potassium 4.3 Chloride 104 Carbon Dioxide 23 Anion Gap 14.3 BUN 19 Creatinine 0.9 GFR Calculation 62.8 L Glucose 110 Calculated Osmolal ity 287 Calcium 8.7 Magnesium 2.4 H Total Bilirubin AST ALT Alkaline Phosphata se Troponin T Baselin e Troponin T Hi Sens 6Hr 19.50 H Troponin T Hi Sens 6Hr Delta 0.50 NT-Pro-B Natriuret Pep Total Protein Albumin Globulin Urine Color Urine Appearance Urine pH Ur Specific Gravit y Urine Protein Urine Glucose (UA) Urine Ketones Urine Blood Urine Nitrate Urine Bilirubin Urine Urobilinogen Ur Leukocyte Val ase Urine RBC Urine WBC Ur Squamous Epith Cells Amorphous Sediment Urine Bacteria 08/15/20 08/15/20 08/15/20 21:39 21:17 21:17 WBC RBC Hgb Hct MCV MCH MCHC RDW Plt Count MPV Neut % (Auto) Lymph % (Auto) Walsh % (Auto) Eos % (Auto) Baso % (Auto) Neut # (Auto) Lymph # (Auto) Walsh # (Auto) Eos # (Auto) Baso # (Auto) Nucleated RBC % (a uto) Nucleated RBCs # PT INR APTT D-Dimer 1.29 H Sodium Potassium Chloride Carbon Dioxide Anion Gap BUN Creatinine GFR Calculation Glucose Calculated Osmolal ity Calcium Magnesium 2.2 Total Bilirubin AST ALT Alkaline Phosphata se Troponin T Baselin e Troponin T Hi Sens 6Hr Troponin T Hi Sens 6Hr Delta NT-Pro-B Natriuret Pep Total Protein Albumin Globulin Urine Color Yellow Urine Appearance Cloudy Urine pH 7 Ur Specific Gravit y 1.005 Urine Protein Neg Urine Glucose (UA) Norm Urine Ketones Negative Urine Blood Neg Urine Nitrate Positive H Urine Bilirubin Neg Urine Urobilinogen Norm Ur Leukocyte Val ase 2+ H Urine RBC 0-4 H Urine WBC 25-40 H Ur Squamous Epith Cells 15-25 H Amorphous Sediment Not Reportable Urine Bacteria 4+ H 08/15/20 08/15/20 08/15/20 21:17 21:17 21:17 WBC RBC Hgb Hct MCV MCH MCHC RDW Plt Count MPV Neut % (Auto) Lymph % (Auto) Walsh % (Auto) Eos % (Auto) Baso % (Auto) Neut # (Auto) Lymph # (Auto) Walsh # (Auto) Eos # (Auto) Baso # (Auto) Nucleated RBC % (a uto) Nucleated RBCs # PT 12.70 INR 0.92 APTT 30.0 D-Dimer Sodium 136 Potassium 4.2 Chloride 102 Carbon Dioxide 24 Anion Gap 14.2 BUN 20 Creatinine 1.0 H GFR Calculation 55.6 L Glucose 166 H Calculated Osmolal ity 288 Calcium 8.9 Magnesium Total Bilirubin 0.2 AST 19 ALT 17 Alkaline Phosphata se 89 Troponin T Baselin e 19 H Troponin T Hi Sens 6Hr Troponin T Hi Sens 6Hr Delta NT-Pro-B Natriuret Pep 590 H Total Protein 5.9 L Albumin 3.9 Globulin 2.0 Urine Color Urine Appearance Urine pH Ur Specific Gravit y Urine Protein Urine Glucose (UA) Urine Ketones Urine Blood Urine Nitrate Urine Bilirubin Urine Urobilinogen Ur Leukocyte Val ase Urine RBC Urine WBC Ur Squamous Epith Cells Amorphous Sediment Urine Bacteria 08/15/20 21:17 WBC 7.8 RBC 3.71 L Hgb 11.9 Hct 35.5 L MCV 95.7 MCH 32.1 MCHC 33.5 RDW 14.1 Plt Count 209 MPV 11.3 H Neut % (Auto) 62.2 Lymph % (Auto) 29.0 Walsh % (Auto) 6.7 Eos % (Auto) 1.2 Baso % (Auto) 0.4 Neut # (Auto) 4.84 Lymph # (Auto) 2.3 Walsh # (Auto) 0.5 Eos # (Auto) 0.1 Baso # (Auto) 0.0 Nucleated RBC % (a uto) 0 Nucleated RBCs # 0.0 PT INR APTT D-Dimer Sodium Potassium Chloride Carbon Dioxide Anion Gap BUN Creatinine GFR Calculation Glucose Calculated Osmolal ity Calcium Magnesium Total Bilirubin AST ALT Alkaline Phosphata se Troponin T Baselin e Troponin T Hi Sens 6Hr Troponin T Hi Sens 6Hr Delta NT-Pro-B Natriuret Pep Total Protein Albumin Globulin Urine Color Urine Appearance Urine pH Ur Specific Gravit y Urine Protein Urine Glucose (UA) Urine Ketones Urine Blood Urine Nitrate Urine Bilirubin Urine Urobilinogen Ur Leukocyte Val ase Urine RBC Urine WBC Ur Squamous Epith Cells Amorphous Sediment Urine Bacteria Vitals: Last Vital Signs Temp 97.6 F 08/16/20 09:00 Pulse 60 08/16/20 16:45 Resp 17 08/16/20 16:45 BP 141/76 08/16/20 13:00 Pulse Ox 96 08/16/20 16:45 TS Medications Medications Home Medications budesonide-formoterol [Symbicort] 2 puff INHALATION BID 04/15/19 [History Confirmed 08/16/20] gabapentin 300 mg PO BID 04/15/19 [History Confirmed 08/16/20] levocetirizine 5 mg PO DAILY 04/15/19 [History Confirmed 08/16/20] furosemide 40 mg tablet 40 mg PO BID tab 11/02/19 [History Confirmed 08/16/20] potassium chloride 20 mEq tablet,extended release(part/cryst) 20 meq PO BID tab 11/02/19 [History Confirmed 08/16/20] clopidogrel 75 mg tablet 75 mg PO DAILY #90 tab 12/09/19 [Rx Confirmed 08/16/20] sacubitril 97 mg-valsartan 103 mg tablet 1 tab PO BID 30 Days #60 tab 04/18/20 [Rx Confirmed 08/16/20] allopurinol 300 mg tablet 300 mg PO DAILY #30 tab 05/04/20 [Rx Confirmed 08/16/20] ascorbic acid (vitamin C) [Vitamin C] 500 mg PO DAILY 08/09/20 [History Confirmed 08/16/20] aspirin 81 mg PO DAILY 08/09/20 [History Confirmed 08/16/20] magnesium oxide 250 mg PO DAILY 08/09/20 [History Confirmed 08/16/20] multivitamin 1 tab PO DAILY 08/09/20 [History Confirmed 08/16/20] rosuvastatin 10 mg PO BEDTIME 08/09/20 [History Confirmed 08/16/20] spironolactone 25 mg PO DAILY 08/09/20 [History Confirmed 08/16/20] sotalol 80 mg PO BID #60 tab 08/12/20 [Rx Confirmed 08/16/20] Fish Oil 1 cap PO DAILY 08/16/20 [History Confirmed 08/16/20] albuterol sulfate 2.5 mg INHALATION Q6H PRN 08/16/20 [History Confirmed 08/16/20] albuterol sulfate [Ventolin HFA] 1 - 2 puff INHALATION QID PRN 08/16/20 [History Confirmed 08/16/20] nitroglycerin [Nitrostat] 0.4 mg SUBLINGUAL Q5M PRN 08/16/20 [History Confirmed 08/16/20] Active Medications Acetaminophen (Acetaminophen 325 Mg Tablet) 650 mg PO Q4H PRN PRN Reason: MILD PAIN OR INCREASE TEMP Last Admin: 08/16/20 16:15 Dose: 650 mg Documented by: Albuterol Sulfate (Albuterol 2.5 Mg/0.5 Ml Neb) 1.25 mg INHALATION QID PRN PRN Reason: Shortness Of Breath Or Wheezing Allopurinol (Allopurinol 300 Mg Tablet) 300 mg PO DAILY [facility] Last Admin: 08/16/20 08:11 Dose: 300 mg Documented by: Aspirin (Aspirin 81 Mg Chew Tablet) 81 mg PO DAILY [facility] Last Admin: 08/16/20 08:09 Dose: 81 mg Documented by: Atorvastatin Calcium (Atorvastatin 40 Mg Tablet) 40 mg PO BEDTIME [facility] Clopidogrel Bisulfate (Clopidogrel 75 Mg Tablet) 75 mg PO DAILY [facility] Last Admin: 08/16/20 08:10 Dose: 75 mg Documented by: Enoxaparin Sodium (Enoxaparin 120 Mg/0.8 Ml Syringe) 110 mg SUBCUT Q12H [facility] Last Admin: 08/16/20 14:56 Dose: 110 mg Documented by: Furosemide (Furosemide 20 Mg Tablet) 20 mg PO DAILY [facility] Last Admin: 08/16/20 08:10 Dose: 20 mg Documented by: Gabapentin (Gabapentin 300 Mg Capsule) 300 mg PO TID [facility] Last Admin: 08/16/20 14:56 Dose: 300 mg Documented by: Lidocaine HCl/Dextrose (Lidocaine Drip) 2,000 mg in 500 mls @ 30 mls/hr IV .[id number] [facility] Last Admin: 08/16/20 08:45 Dose: 4 mg/min, 60 mls/hr Documented by: Ceftriaxone Sodium 1,000 mg/ (Sodium Chloride) 50 mls @ 100 mls/hr IV Q24H [facility]; Protocol Last Infusion: 08/16/20 14:30 Dose: Infused Documented by: Ipratropium Widen (Ipratropium 12.9 Gm Mdi) 2 puff INHALATION QID.RESPIRATORY [facility] Last Admin: 08/16/20 15:57 Dose: Not Given Documented by: Metoprolol Tartrate (Metoprolol Tartrate 25 Mg Tablet) 25 mg PO BID@0900,2100 [facility] Nitroglycerin (Nitroglycerin 0.4 Mg Sublingual Tablet) 0.4 mg SUBLINGUAL PRN [facility] Non-Formulary Medication (Magnesium Oxide) 250 mg PO DAILY [facility] Last Admin: 08/16/20 09:36 Dose: Not Given Documented by: Potassium Chloride (Potassium Chloride Er 20 Meq Tablet) 20 meq PO DAILY [facility] Last Admin: 08/16/20 09:36 Dose: Not Given Documented by: Sacubitril/Valsartan (Sacubitril/Valsartan 24-26 Mg Tablet) 4 each PO BID [facility] Last Admin: 08/16/20 10:02 Dose: 4 each Documented by: Fluticasone/Salmeterol (Fluticasone-Salmeterol 500-50 Diskus) 1 puff INHALATION BID [facility] Last Admin: 08/16/20 08:01 Dose: 1 puff Documented by: Sotalol HCl (Sotalol 80 Mg Tablet) 120 mg PO BID@0900,2100 [facility] Last Admin: 08/16/20 10:02 Dose: 120 mg Documented by: Discharge Plan Discharge Patient Disposition: Home Condition: Stable Prescriptions: No Action allopurinol 300 mg tablet 300 mg PO DAILY Qty: 30 RF: 5 clopidogrel 75 mg tablet 75 mg PO DAILY Qty: 90 RF: 3 Entresto 97-103 mg tablet 1 tab PO BID 30 Days Qty: 60 RF: 5 gabapentin 300 mg capsule 300 mg PO BID RF: 0 budesonide-formoterol [Symbicort] 160-4.5 mcg/actuation HFA aerosol inhaler 2 puff INHALATION BID RF: 0 levocetirizine 5 mg tablet 5 mg PO DAILY RF: 0 furosemide 40 mg tablet 40 mg PO BID RF: 0 potassium chloride 20 mEq tablet,ER particles/crystals 20 meq PO BID RF: 0 spironolactone 25 mg Tablet 25 mg PO DAILY RF: 0 aspirin 81 mg Tablet,Chewable 81 mg PO DAILY RF: 0 rosuvastatin 10 mg Tablet 10 mg PO BEDTIME RF: 0 multivitamin Tablet 1 tab PO DAILY RF: 0 ascorbic acid (vitamin C) [Vitamin C] 500 mg Tablet 500 mg PO DAILY RF: 0 magnesium oxide 250 mg magnesium Tablet 250 mg PO DAILY RF: 0 sotalol 80 mg tablet 80 mg PO BID Qty: 60 RF: 3 albuterol sulfate 2.5 mg /3 mL (0.083 %) Solution For Nebulization 2.5 mg INHALATION Q6H PRN (Reason: Shortness Of Breath) RF: 0 Nitrostat 0.4 mg Tablet, Sublingual 0.4 mg SUBLINGUAL Q5M PRN (Reason: Chest Pain) RF: 0 Fish Oil 1 cap PO DAILY RF: 0 Ventolin HFA 90 mcg/actuation HFA aerosol inhaler 1 - 2 puff INHALATION QID PRN (Reason: Shortness Of Breath) RF: 0 Discharge Orders: Transfer Out of Facility (Order); Ordered 08/16/20 Ordered By: Tom Carbone Patient Instructions: Opioid Safety Transfer Attestations Time Spent in Transfer Care*: greater than 30 min Status at Transfer: Cognitive status at transfer: cognitively intact, Behavioral status at transfer: cooperative, Quality Metrics Clinical Quality Measures: During this hospital stay, did patient experience: None Coding Level of Care Code Acute Profile Trimmer for g Fwd Diagnoses AICD discharge Z45.02 Atherosclerotic heart disease of [place] coronary artery with other forms of angina pectoris I25.118 Cardiomyopathy I25.5 Cardiomyopathy type: ischemic Sleep apnea G47.33 Sleep apnea type: obstructive Dyslipidemia E78.5 AICD (automatic cardioverter/defibrillator) present Z95.810
--- NOTE | 2020-08-16 18:10 | PC.NURSE ---
Patient had 43 second run of vtach. This nurse and other staff was at bedside. Patient was alert and talking to staff. Once patient converted out of the rhythm she stated did not feel a shock from defibrillator. Dr. Carbone aware.
[2020-08-16] MEDS: atorvastatin 40 mg Tablet PO (19:35)
[2020-08-16] MEDS: metoprolol tartrate 25 mg Tablet PO (19:36)
--- NOTE | 2020-08-16 20:18 | PC.NURSE ---
Patient transferred to [facility] per MD. All belongings and medication sent with patient and EMS crew [facility] patient left facility at 1999. All appropriate paperwork signed and sent with patient.
== END 2020-08-16 20:00 | disposition short-term general hospital (02) | DRG 315 ==
LOC: ER 22:24 → ICU 23:28
PROVIDERS: Admitting Provider Internal Medicine; Emergency Provider Emergency Medicine; PCP Physician Assistant; Visit Provider Family Medicine
DX: Z45.02 Encounter for adjustment and management of automatic implantable cardiac defibrillator (principal); I47.2 Ventricular tachycardia; I50.42 Chronic combined systolic (congestive) and diastolic (congestive) heart failure; I42.9 Cardiomyopathy, unspecified; N39.0 Urinary tract infection, site not specified; I48.20 Chronic atrial fibrillation, unspecified; I25.5 Ischemic cardiomyopathy; Z95.5 Presence of coronary angioplasty implant and graft; I25.118 Atherosclerotic heart disease of native coronary artery with other forms of angina pectoris; Z95.810 Presence of automatic (implantable) cardiac defibrillator; M19.90 Unspecified osteoarthritis, unspecified site; J44.9 Chronic obstructive pulmonary disease, unspecified; M54.9 Dorsalgia, unspecified; M51.36 Other intervertebral disc degeneration, lumbar region; F32.9 Major depressive disorder, single episode, unspecified; E78.2 Mixed hyperlipidemia; M10.9 Gout, unspecified; G62.9 Polyneuropathy, unspecified; Z99.81 Dependence on supplemental oxygen; G47.33 Obstructive sleep apnea (adult) (pediatric); F17.210 Nicotine dependence, cigarettes, uncomplicated; Z79.51 Long term (current) use of inhaled steroids; Z79.82 Long term (current) use of aspirin; Z79.02 Long term (current) use of antithrombotics/antiplatelets; F40.240 Claustrophobia
CPT/HCPCS: 36415; 71045; 80048; 80053; 81001; 83735; 83880; 84484; 85025; 85378; 85610; 85730; 93005; 93306; 94640; 96365; 96366; 96372; 99291; J0696; J1650; J2001; J3535

== ENCOUNTER → 2020-11-07 08:29 | Outpatient (BNVA) | payer MEDICARE, MEDICAID, SELFPAY | PROVIDERS: PCP Physician Assistant; Visit Provider Internal Medicine Rheumatology | DX: M10.9 Gout, unspecified (principal); Z79.899 Other long term (current) drug therapy; M15.0 Primary generalized (osteo)arthritis; M47.816 Spondylosis without myelopathy or radiculopathy, lumbar region; Z71.3 Dietary counseling and surveillance; F17.210 Nicotine dependence, cigarettes, uncomplicated | CPT/HCPCS: 99214 ==

== ENCOUNTER → 2021-02-22 10:43 | Outpatient (BNVA) | payer MEDICARE, MEDICAID, SELFPAY | PROVIDERS: PCP Physician Assistant; Visit Provider Internal Medicine Cardiovascular Disease | DX: I50.22 Chronic systolic (congestive) heart failure (principal); I50.33 Acute on chronic diastolic (congestive) heart failure; E78.5 Hyperlipidemia, unspecified; R06.02 Shortness of breath | CPT/HCPCS: 80048; 80061; 83880 ==

== ENCOUNTER → 2021-04-26 08:39 | Outpatient (BNVA) | payer MEDICARE, MEDICAID, SELFPAY | PROVIDERS: PCP Physician Assistant; Visit Provider Internal Medicine Rheumatology | DX: M10.9 Gout, unspecified (principal); Z79.899 Other long term (current) drug therapy; M47.816 Spondylosis without myelopathy or radiculopathy, lumbar region; F17.210 Nicotine dependence, cigarettes, uncomplicated | CPT/HCPCS: 99213 ==

== ENCOUNTER 2021-05-14 13:55 | Emergency (ER) | payer MEDICARE, MEDICAID, SELFPAY ==
[2021-05-14 13:57] VITALS: BP 108/51; PULSE 69; RESP 18; TEMP 36.8; O2SAT 94; BMI 34.8
--- NOTE | 2021-05-14 13:57 | W.ED.SYNCOPE ---
HPI - Syncope General: Stated Complaint: POST DEFIB FIRING Time Seen by Provider: 05/14/21 13:57 [facility] PFS: Medical History (Updated 04/26/21 @ 10:19 by Raul Le MD) AICD discharge AICD discharge Arthritis Asthma Atherosclerotic heart disease of [place] coronary artery with other forms of angina pectoris Cardiac cath in April 2019 revealed No significant disease noted in the Left Main, LAD, Circumflex, or RCA coronary arteries. The right coronary artery was extensively stented with the patent stents. LVEDP was 13 mmHg. LV gram was not performed because of theabnormal kidney function Atherosclerotic heart disease of [place] coronary artery with unstable angina pectoris Back pain Cardiomyopathy Chronic episodic atrial fibrillation Pt has massive GI bleed and is not wanting to take oral anticoagulant Combined systolic and diastolic heart failure Ejection fraction 30%, grade 1/4 diastolic dysfunction COPD (chronic obstructive pulmonary disease) Coronary artery disease Degenerative joint disease (DJD) of lumbar spine Depression Dyslipidemia Fall Gout Gout, arthritis Gout, arthritis H/O coronary angiogram Showed patent stented segment of RCA with diffuse disease in other vessels High risk medication use Immunization counseling Ischemic cardiomyopathy with implantable cardioverter-defibrillator (ICD) Mixed hyperlipidemia Neuropathy Osteoarthritis Oxygen dependent Sleep apnea uses Bipap at night with 2 L o2 Sleep apnea syndrome Sleep apnea with mood disorder Smoker Smoking Tendinopathy of rotator cuff Ventricular tachycardia Surgical History AICD (automatic cardioverter/defibrillator) present ICD placement in 2012 with generator change by Dr. Boucher on 05/21/2018 History of appendectomy History of tubal ligation Hx of tonsillectomy Family History Father Hypertension CAD (coronary artery disease) Mother Diabetes CAD (coronary artery disease) Cancer Lung disease Brother No problems noted. Sister Cancer Dementia Diabetes Family/Other CAD (coronary artery disease) Cancer Diabetes Father No problems noted. Grandmother CAD (coronary artery disease) Cancer Lung disease Grandfather CAD (coronary artery disease) Other Stroke Denies family history of Rheumatoid arthritis Lupus Clotting disorder Chronic kidney disease (CKD) Suicide Anesthesia complication Bleeding disorder Social History Smoking and tobacco status: current every day smoker cigarettes Alcohol intake: never Lives independently: Yes Marital status: / Discharge Plan Discharge Condition: Stable Prescriptions: No Action Eliquis 5 mg tablet 5 mg PO BID 0RF metoprolol succinate 25 mg tablet extended release 24 hr 25 mg PO DAILY 0RF rosuvastatin 40 mg tablet 40 mg PO DAILY 0RF Entresto 24-26 mg tablet 1 tab PO BID 0RF alprazolam [Xanax] 0.25 mg tablet 0.125 mg PO BID PRN (Reason: anxiety) Qty: 10 0RF amiodarone 200 mg tablet 400 mg PO DAILY 0RF prednisone 20 mg tablet See Rx Instructions PO .COMPLEX PRN (Reason: joint pain flare) Qty: 30 1RF Rx Instructions: take 1 tab daily for 5-7 days as needed for gout flare PO PRN; allopurinol 300 mg tablet See Rx Instructions .ROUTE .COMPLEX Qty: 90 0RF Dose Instruction: TAKE 1 TABLET BY MOUTH EVERY DAY Rx Instructions: TAKE 1 TABLET BY MOUTH EVERY DAY budesonide-formoterol [Symbicort] 160-4.5 mcg/actuation HFA aerosol inhaler 2 puff INHALATION BID 0RF levocetirizine 5 mg tablet 5 mg PO DAILY 0RF furosemide 40 mg tablet 40 mg PO DAILY 0RF gabapentin 300 mg capsule 300 mg PO TID 0RF spironolactone 25 mg Tablet 25 mg PO DAILY 0RF aspirin 81 mg Tablet,Chewable 81 mg PO DAILY 0RF multivitamin Tablet 1 tab PO DAILY 0RF ascorbic acid (vitamin C) [Vitamin C] 500 mg Tablet 500 mg PO DAILY 0RF magnesium oxide 250 mg magnesium Tablet 250 mg PO DAILY 0RF albuterol sulfate 2.5 mg /3 mL (0.083 %) Solution For Nebulization 2.5 mg INHALATION Q6H PRN (Reason: Shortness Of Breath) 0RF Nitrostat 0.4 mg Tablet, Sublingual 0.4 mg SUBLINGUAL Q5M PRN (Reason: Chest Pain) 0RF Fish Oil 1 cap PO DAILY 0RF Ventolin HFA 90 mcg/actuation HFA aerosol inhaler 1 - 2 puff INHALATION QID PRN (Reason: Shortness Of Breath) 0RF Referrals: Lois Sorto PA [Primary Care Provider] - Coding Level of Care Code ED [employer] for Miguelina Lynch
--- NOTE | 2021-05-14 14:01 | XRR_ITS ---
PROCEDURE INFORMATION: Exam: XR Chest Exam date and time: 05/14/2021 2:01 PM Age: 66 years old Clinical indication: Other: Syncope, icd fired; Prior surgery TECHNIQUE: Imaging protocol: XR of the chest. Views: 1 view. COMPARISON: CR (CHEST, ) 08/15/2020 9:37 PM FINDINGS: Tubes, catheters and devices: AICD/pacer device noted in the left chest wall. Lungs: No consolidation. Pleural spaces: Small to moderate volume left pleural effusion. No pneumothorax. Heart/Mediastinum: Stable cardiomegaly. Bones/joints: Visualized osseous structures are intact. XR/XR chest 1V portable [id number] IMPRESSION: Small to moderate volume left pleural effusion. Stable cardiomegaly.
--- NOTE | 2021-05-14 14:01 | W.ED.SYNCOPE ---
HPI - Syncope General: Chief Complaint: General Medical Stated Complaint: POST DEFIB FIRING Time Seen by Provider: 05/14/21 13:57 History of Present Illness: Ms. White is a 66-year-old lady with complex past medical history including hypertension, hyperlipidemia, history of tobaccoism, episodic atrial fibrillation, heart failure with reduced ejection fraction, AICD in place who presents the emergency department due to witnessed syncopal episode. She reports being at her baseline health and without warning suddenly had syncope in a parking lot. She endorses complete loss of consciousness and waking up on the ground. Apparently she had some shaking episode witnessed by bystanders and subsequently her ICD fired. She does have dried hands and mild scrapes to the hand. She otherwise denies any pain. She reports a mild to moderate intensity weird feeling which is generalized and not focal. She reports compliance with her medication regimen. No other specific changes in health, exacerbating, relieving factors. Denies history of similar. Patient reports being up-to-date on Tdap. Onset (ago): minute(s) Prodromal symptoms: none Witnessed: Yes - by Bystander Context: other (Walking in parking lot) Injuries sustained associated with event: other (Abrasions to extremities) Associated symptoms: Reports other History: history of CAD and AICD Review of Systems General: Reports: 10 or more systems reviewed and unremarkable except in HPI and below PFSH ED PFSH: Medical History AICD discharge AICD discharge Arthritis Asthma Atherosclerotic heart disease of [place] coronary artery with other forms of angina pectoris Cardiac cath in April 2019 revealed No significant disease noted in the Left Main, LAD, Circumflex, or RCA coronary arteries. The right coronary artery was extensively stented with the patent stents. LVEDP was 13 mmHg. LV gram was not performed because of theabnormal kidney function Atherosclerotic heart disease of [place] coronary artery with unstable angina pectoris Back pain Cardiomyopathy Chronic episodic atrial fibrillation Pt has massive GI bleed and is not wanting to take oral anticoagulant Combined systolic and diastolic heart failure Ejection fraction 30%, grade 1/4 diastolic dysfunction COPD (chronic obstructive pulmonary disease) Coronary artery disease Degenerative joint disease (DJD) of lumbar spine Depression Dyslipidemia Fall Gout Gout, arthritis Gout, arthritis H/O coronary angiogram Showed patent stented segment of RCA with diffuse disease in other vessels High risk medication use Immunization counseling Ischemic cardiomyopathy with implantable cardioverter-defibrillator (ICD) Mixed hyperlipidemia Neuropathy Osteoarthritis Oxygen dependent Sleep apnea uses Bipap at night with 2 L o2 Sleep apnea syndrome Sleep apnea with mood disorder Smoker Smoking Tendinopathy of rotator cuff Ventricular tachycardia Surgical History AICD (automatic cardioverter/defibrillator) present ICD placement in [address] with generator change [address] Dr. Boucher on 05/21/2018 History of appendectomy History of tubal ligation Hx of tonsillectomy Family History Father Hypertension CAD (coronary artery disease) Mother Diabetes CAD (coronary artery disease) Cancer Lung disease Brother No problems noted. Sister Cancer Dementia Diabetes Family/Other CAD (coronary artery disease) Cancer Diabetes Father No problems noted. Grandmother CAD (coronary artery disease) Cancer Lung disease Grandfather CAD (coronary artery disease) Other Stroke Denies family history of Rheumatoid arthritis Lupus Clotting disorder Chronic kidney disease (CKD) Suicide Anesthesia complication Bleeding disorder Social History Smoking and tobacco status: current every day smoker cigarettes Alcohol intake: never Lives independently: Yes Marital status: / Physical Exam Const: COMMON NORMALS: alert GENERAL APPEARANCE: cooperative and well developed HENMT: COMMON NORMALS: normocephalic and atraumatic HEAD & SCALP: normocephalic and atraumatic THROAT: posterior oropharynx normal Eye: COMMON NORMALS: conjunctivae normal CONJUNCTIVA: Yes conjunctivae normal SCLERA: sclerae normal Neck/C-Spine: COMMON NORMALS: supple GENERAL: Yes trachea midline Resp: COMMON NORMALS: normal respiratory effort EFFORT & INSPECTION: Yes able to speak in complete sentences Cardio: COMMON NORMALS: regular rate and regular rhythm RATE: regular rate RHYTHM: regular rhythm OTHER: No significant peripheral edema. GI: COMMON NORMALS: Soft to palpation PALPATION: Yes Soft to palpation and No Tenderness to palpation present (GI) PERCUSSION: normal to percussion Extremity: GENERAL: Yes normal exam except as noted and No edema Neuro: COMMON NORMALS: moves all extremities SENSORIUM/ORIENTATION: Yes alert and No Orientation impaired Psych: COMMON NORMALS: mental status grossly normal and Normal thought process present THOUGHT PROCESS: Normal thought process present Skin: NARRATIVE SKIN EXAM: Scattered abrasions on bilateral hands, bleeding controlled. No repairable lacerations identified. Course ED course: - Patient was seen and evaluated by me at bedside - Patient placed on cardiac monitors, IV access obtained - Initial evaluation notable for exam as above, no focal neurologic deficits - Labs notable for minimal leukocytosis. Metabolic panel with mild evidence of dehydration, bicarb 17, anion gap 25, potassium normal, creatinine mildly elevated above baseline. - IV fluids ordered - Imaging notable for small to moderate left pleural effusion. No traumatic finding on head/neck CT. - Upon serial reexamination after treatment the patient was similar - Based on patient history, evaluation, labs, and imaging as interpreted the most likely cause of the patient's condition is syncope of unclear etiology. - There is no evidence of ICD discharge or other acute arrhythmia identified on Medtronic pacemaker interrogation. - I discussed the case with Dr Babin with the cardiology service. Given device report as well as discussion of laboratory findings there is no acute indication for hospitalization from a cardiology standpoint. Given likely mild dehydration intravascularly we will plan to hold Lasix for 2 days and have patient contact primary care provider regarding resumption of possible 20 mg/day dose. - The results of ED evaluation were discussed with the patient including prescriptions and/or symptomatic cares (if applicable) including appropriate and responsible use, followup plan, and return precautions. - Patient discharged in satisfactory condition. Note: Click bubbles or prepopulated carranza in note writing are used for assistance with data collection and billing and are inherently more limited than narrative and other text portions of this note. Please use narrative for additional clinical history and defer to narrative/free test for any case of contradictory information. If information appears in only free text or click bubble it should be considered present or absent as reported. Please contact note credit underwriter for clarifications of clinical information or contradictory information. MDM is a brief summary, contradictory or erroneous seeming information should be clarified and full note should be reviewed. Vital Signs: Vital signs: Vital Signs Temperature 98.3 F 05/14/21 13:57 Pulse Rate 70 05/14/21 17:39 Respiratory Rate 18 05/14/21 19:12 Blood Pressure 125/70 05/14/21 17:39 Pulse Oximetry 98 05/14/21 16:00 MDM - Syncope Medical Decision Making 66 yo lady with history of heart failure with reduced ejection fraction and ICD in place presenting with syncope without prodrome. Additionally she believes her ICD fired. ED evaluation notable for no significant traumatic injury. She likely has some intervascular volume depletion resulting in mild elevation of creatinine above baseline and decreased bicarb/increased anion gap. ICD interrogation reveals no arrhythmia or ICD discharge. Discussed with cardiology. Patient to be discharged for outpatient follow-up. Medical Records I reviewed the patient's medical records. Lab Data I reviewed the patient's lab results. : 05/14/21 14:00 05/14/21 14:00 Radiology Impressions Chest X-Ray 05/14/21 14:01 IMPRESSION: Small to moderate volume left pleural effusion. Stable cardiomegaly. Cervical Spine CT 05/14/21 14:56 IMPRESSION: No acute findings. Head CT 05/14/21 14:56 IMPRESSION: No acute intracranial abnormality. Laboratory Results WBC 11.8 10^3/uL (4.0-10.0) H 05/14/21 14:00 RBC 4.12 10^6/uL (4.1-5.3) 05/14/21 14:00 Hgb 13.2 g/dL (11.5-15.3) 05/14/21 14:00 Hct 41.4 % (37.0-47.0) 05/14/21 14:00 MCV 100.5 fl (81-99) H 05/14/21 14:00 MCH 32.0 pg (28.0-34.0) 05/14/21 14:00 MCHC 31.9 g/dL (30.0-36.0) 05/14/21 14:00 RDW 14.9 % (12.1-15.1) 05/14/21 14:00 Plt Count 193 10^3/cmm (130-400) 05/14/21 14:00 MPV 11.2 fL (7.4-10.4) H 05/14/21 14:00 Neut % (Auto) 46.3 % 05/14/21 14:00 Lymph % (Auto) 44.6 % 05/14/21 14:00 [place] % (Auto) 7.0 % 05/14/21 14:00 Eos % (Auto) 1.1 % 05/14/21 14:00 Baso % (Auto) 0.4 % 05/14/21 14:00 Neut # (Auto) 5.47 10^3/uL (1.8-7.7) 05/14/21 14:00 Lymph # (Auto) 5.3 10^3/uL (0.8-4.8) H 05/14/21 14:00 [place] # (Auto) 0.8 10^3/uL (0.2-0.9) 05/14/21 14:00 Eos # (Auto) 0.1 10^3/uL (0.0-0.8) 05/14/21 14:00 Baso # (Auto) 0.1 10^3/uL (0.0-0.1) 05/14/21 14:00 Nucleated RBC % (auto) 0 % 05/14/21 14:00 Nucleated RBCs # 0.0 /100WBC 05/14/21 14:00 Sodium 139 mmol/L (136-145) 05/14/21 14:00 Potassium 4.1 mmol/L (3.5-5.1) 05/14/21 14:00 Chloride 101 mmol/L (98-107) 05/14/21 14:00 Carbon Dioxide 17 mmol/L (22-29) L 05/14/21 14:00 Anion Gap 25.1 (5-19) H 05/14/21 14:00 BUN 23 mg/dL (8-23) 05/14/21 14:00 Creatinine 1.6 mg/dL (0.5-0.9) H 05/14/21 14:00 GFR Calculation 32.2 mL/min (90-130) L 05/14/21 14:00 Glucose 75 mg/dL (65-115) 05/14/21 14:00 Calculated Osmolality 290 mOsm/kg (285-295) 05/14/21 14:00 Calcium 8.8 mg/dL (8.5-10.5) 05/14/21 14:00 Magnesium 2.7 mg/dL (1.7-2.3) H 05/14/21 14:00 Total Bilirubin 0.2 mg/dL (0.15-1.2) 05/14/21 14:00 AST 16 U/L (0-32) 05/14/21 14:00 ALT 12 U/L (0-33) 05/14/21 14:00 Alkaline Phosphatase 100 IU/L (35-105) 05/14/21 14:00 Troponin T Baseline 20 ng/L (0-10) H 05/14/21 14:00 Troponin T 120 Minute 23.58 ng/L (0-10) H 05/14/21 16:17 Delta Troponin T 3.58 ABS# (0-10) 05/14/21 16:17 NT-Pro-B Natriuret Pep 645 pg/mL (0-125) H 05/14/21 14:00 Total Protein 6.5 g/dL (6.6-8.7) L 05/14/21 14:00 Albumin 4.3 g/dL (3.5-5.2) 05/14/21 14:00 Globulin 2.2 g/dL (1.3-4.6) 05/14/21 14:00 Procalcitonin 0.04 ng/mL (0-0.5) 05/14/21 14:00 TSH 3.92 uIU/mL (0.27-4.20) 05/14/21 14:00 EKG Data EKG 1: I personally reviewed and interpreted this EKG as follows: EKG interpretation date: 05/14/21 EKG interpretation time: 14:11 Interpretation: Twelve-lead EKG shows a regular rhythm at a rate of 69. NE interval 263, cures duration 190, QTc 510. Left axis deviation. Interpretation: Paced rhythm EKG 2: I personally reviewed and interpreted this EKG as follows: EKG interpretation date: 05/14/21 EKG interpretation time: 17:10 Interpretation: Twelve-lead EKG shows a regular rhythm at a rate of 69. NE interval 289, QRS duration 193, QTc 520. Left axis deviation. Interpretation: Paced rhythm Discharge Plan Discharge Patient Disposition: Home Clinical Impression: Syncope, Abrasion hand Condition: Stable Prescriptions: No Action Eliquis 5 mg tablet 5 mg PO BID 0RF metoprolol succinate 25 mg tablet extended release 24 hr 25 mg PO DAILY 0RF rosuvastatin 40 mg tablet 40 mg PO DAILY 0RF Entresto 24-26 mg tablet 1 tab PO BID 0RF alprazolam [Xanax] 0.25 mg tablet 0.125 mg PO BID PRN (Reason: anxiety) Qty: 10 0RF amiodarone 200 mg tablet 400 mg PO DAILY 0RF prednisone 20 mg tablet See Rx Instructions PO .COMPLEX PRN (Reason: joint pain flare) Qty: 30 1RF Rx Instructions: take 1 tab daily for 5-7 days as needed for gout flare PO PRN; allopurinol 300 mg tablet See Rx Instructions .ROUTE .COMPLEX Qty: 90 0RF Dose Instruction: TAKE 1 TABLET BY MOUTH EVERY DAY Rx Instructions: TAKE 1 TABLET BY MOUTH EVERY DAY budesonide-formoterol [Symbicort] 160-4.5 mcg/actuation HFA aerosol inhaler 2 puff INHALATION BID 0RF levocetirizine 5 mg tablet 5 mg PO DAILY 0RF furosemide 40 mg tablet 40 mg PO DAILY 0RF gabapentin 300 mg capsule 300 mg PO TID 0RF spironolactone 25 mg Tablet 25 mg PO DAILY 0RF aspirin 81 mg Tablet,Chewable 81 mg PO DAILY 0RF multivitamin Tablet 1 tab PO DAILY 0RF ascorbic acid (vitamin C) [Vitamin C] 500 mg Tablet 500 mg PO DAILY 0RF magnesium oxide 250 mg magnesium Tablet 250 mg PO DAILY 0RF albuterol sulfate 2.5 mg /3 mL (0.083 %) Solution For Nebulization 2.5 mg INHALATION Q6H PRN (Reason: Shortness Of Breath) 0RF Nitrostat 0.4 mg Tablet, Sublingual 0.4 mg SUBLINGUAL Q5M PRN (Reason: Chest Pain) 0RF Fish Oil 1 cap PO DAILY 0RF Ventolin HFA 90 mcg/actuation HFA aerosol inhaler 1 - 2 puff INHALATION QID PRN (Reason: Shortness Of Breath) 0RF Discharge Orders: Discharge ED (Routine); Ordered 05/14/21 Ordered By: Gustavo Hercules Referrals: Lois Sorto PA [Primary Care Provider] - Discharge Diet: Usual diet Discharge Activity: Resume usual activity Patient Instructions: Syncope (ED), Abrasion (ED) Activity Restrictions/Additional Instructions: Thank you for visiting the emergency department. You were seen and evaluated for syncope. The exact cause of your syncope is unclear. You were found to be dehydrated. I discussed this with cardiology. Your medtronic device did not show arrythmia or shock. Please hold your lasix for the next [address] Saldaña's office in the morning for instructions about resuming and the appropriate dose. Return to the emergency department for recurrent symptoms or anything else that you are concerned about and feel needs emergency department evaluation. Coding Level of Care Code ED Survey Compiler for Chg Fwd Exam Comprehensive
--- NOTE | 2021-05-14 14:02 | ECG_ITS ---
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: : 1955 Requested By: Gustavo Hercules Order Number: [id number] Anabel MD: ADRIANE ORTEGA Measurements Intervals [place] Rate: 69 P: 129 CA: 263 QRS: -78 QRSD: 190 T: 100 QT: 491 QTc: 529 Interpretive Statements ELECTRONIC ATRIAL PACEMAKER LEFT AXIS DEVIATION [QRS AXIS < -30] LEFT BUNDLE BRANCH BLOCK [120+ ms QRS DURATION, 80+ ms Q/S IN V1/V2, 85+ ms R IN I/aVL/V5/V6] Compared to ECG 08/16/2020 03:26:58 Left-axis deviation now present Left bundle-branch block now present Myocardial infarct finding no longer present Electronically Signed On 05-14-2021 19:15:31 SUPERVISOR LINE DEPARTMENT by ADRIANE ORTEGA [id number]
[2021-05-14 14:14] LABS: Basophils # 0.1 10^3/uL (0.0-0.1); Basophils % 0.4 %; Eosinophils # 0.1 10^3/uL (0.0-0.8); Eosinophils % 1.1 %; Hematocrit 41.4 % (37.0-47.0); Hemoglobin 13.2 g/dL (11.5-15.3); Lymphocytes # 5.3 10^3/uL (0.8-4.8); Lymphocytes % 44.6 %; Mean Corpuscular HGB Conc 31.9 g/dL (30.0-36.0); Mean Corpuscular Volume 100.5 fl (81-99); Mean Platelet Volume 11.2 fL (7.4-10.4); Monocytes # 0.8 10^3/uL (0.2-0.9); Neutrophils # 5.47 10^3/uL (1.8-7.7); Neutrophils % 46.3 %; Nucleated Red Blood Cells % 0 %; Platelet Count 193 10^3/cmm (130-400); Red Blood Count 4.12 10^6/uL (4.1-5.3); Red Cell Distribution Width 14.9 % (12.1-15.1); White Blood Count 11.8 10^3/uL (4.0-10.0)
--- NOTE | 2021-05-14 14:32 | PC.NURSE ---
patient escorted to restroom via wheelchiar. patient in no obivous distress. patient returned to stretcher with no complications. patient placed back on cardiacm onitor. Urine sample sent to lab.
[2021-05-14 14:38] LABS: NT Pro B Type Natriuretic Pept 645 pg/mL (0-125); Procalcitonin 0.04 ng/mL (0-0.5); Thyroid Stimulating Hormone 3.92 uIU/mL (0.27-4.20)
[2021-05-14 14:41] LABS: Troponin(5th) Baseline 20 ng/L (0-10)
[2021-05-14 14:50] LABS: Alanine Aminotransferase 12 U/L (0-33); Albumin Level 4.3 g/dL (3.5-5.2); Alkaline Phosphatase 100 IU/L (35-105); Anion Gap 25.1 (5-19); Aspartate Amino Transferase 16 U/L (0-32); Blood Urea Nitrogen 23 mg/dL (8-23); Calcium 8.8 mg/dL (8.5-10.5); Carbon Dioxide 17 mmol/L (22-29); Chloride 101 mmol/L (98-107); Globulin 2.2 g/dL (1.3-4.6); Glomerular Filtration Rate 32.2 mL/min (90-130); Glucose 75 mg/dL (65-115); Magnesium 2.7 mg/dL (1.7-2.3); Osmolality Calculated 290 mOsm/kg (285-295); Potassium 4.1 mmol/L (3.5-5.1); Sodium 139 mmol/L (136-145); Total Bilirubin 0.2 mg/dL (0.15-1.2); Total Protein 6.5 g/dL (6.6-8.7)
--- NOTE | 2021-05-14 14:56 | CTR_ITS ---
PROCEDURE INFORMATION: Exam: CT Head Without Contrast Exam date and time: 05/14/2021 2:56 PM Age: 66 years old Clinical indication: Syncope and collapse; Patient HX: Syncope and fall; Additional info: Syncope, on anticoag, headstrike TECHNIQUE: Imaging protocol: Computed tomography of the head without contrast. Radiation optimization: All CT scans at this facility use at least one of these dose optimization techniques: automated exposure control; mA and/or kV adjustment per patient size (includes targeted exams where dose is matched to clinical indication); or iterative reconstruction. COMPARISON: CT Cervical Spine wo* [id number] 06/07/2014 9:08 AM RADIATION DOSE METRICS: Total DLP (mGy-cm): 971.79 FINDINGS: Brain: Normal. No hemorrhage. Unremarkable white matter. No mass effect. Cerebral ventricles: No ventriculomegaly. Paranasal sinuses: Visualized sinuses are unremarkable. No fluid levels. Mastoid air cells: Visualized mastoid air cells are well aerated. Bones/joints: Unremarkable. No acute fracture. Soft tissues: Unremarkable. CT/CT head wo con* [id number] IMPRESSION: No acute intracranial abnormality.
--- NOTE | 2021-05-14 14:56 | CTR_ITS ---
PROCEDURE INFORMATION: Exam: CT Cervical Spine Without Contrast Exam date and time: 05/14/2021 2:56 PM Age: 66 years old Clinical indication: Injury or trauma; Blunt trauma; Prior surgery; Surgery date: 6+ months; Surgery type: Icd; Patient HX: Syncope and fall; Additional info: Syncope, tingling, headstrike TECHNIQUE: Imaging protocol: Computed tomography images of the cervical spine without contrast. Radiation optimization: All CT scans at this facility use at least one of these dose optimization techniques: automated exposure control; mA and/or kV adjustment per patient size (includes targeted exams where dose is matched to clinical indication); or iterative reconstruction. COMPARISON: CT Cervical Spine wo* [id number] 06/07/2014 9:08 AM RADIATION DOSE METRICS: Total DLP (mGy-cm): 960.78 FINDINGS: Bones/joints: No acute fracture. Normal alignment. Discs/Spinal canal/Neural foramina: No significant disc protrusion. No severe spinal canal stenosis. Lungs: Lung apices are normal. Soft tissues: Unremarkable. CT/CT cervical spin wo con* [id number] IMPRESSION: No acute findings.
[2021-05-14 16:00] VITALS: BP 101/52; PULSE 85; RESP 18; O2SAT 98
[2021-05-14 16:55] LABS: Troponin 5 2HR 23.58 ng/L (0-10)
[2021-05-14 16:57] LABS: Troponin 5 2HR Delta 3.58 ABS# (0-10)
[2021-05-14 17:39] VITALS: BP 111/87; BP 125/70; BP 125/73; PULSE 70; PULSE 71; PULSE 72
[2021-05-14] MEDS: sodium chloride 0.9% 500 ML 999 ML IV (18:12)
[2021-05-14 19:12] VITALS: RESP 18
--- NOTE | 2021-05-14 20:02 | ECG_ITS ---
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1955 Requested By: Gustavo Hercules Order Number: [id number] Reading MD: ADRIANE ORTEGA Measurements Intervals [place] Rate: 69 P: 87 DE: 289 QRS: -75 QRSD: 193 T: 98 QT: 500 QTc: 539 Interpretive Statements ELECTRONIC ATRIAL PACEMAKER ELECTRONIC VENTRICULAR PACEMAKER ABNORMAL RHYTHM ECG Compared to ECG 05/14/2021 14:10:33 Left-axis deviation no longer present Left bundle-branch block no longer present Electronically Signed On 05-14-2021 19:17:35 PROFESSIONAL SOCCER PLAYER by ADRIANE ORTEGA [id number]
== END 2021-05-14 19:15 | disposition home or self-care (01) ==
PROVIDERS: Emergency Provider Emergency Medicine; PCP Physician Assistant
DX: R55 Syncope and collapse (principal); S60.512A Abrasion of left hand, initial encounter; S60.511A Abrasion of right hand, initial encounter; Z79.01 Long term (current) use of anticoagulants; Z79.82 Long term (current) use of aspirin; I25.10 Atherosclerotic heart disease of native coronary artery without angina pectoris; I11.0 Hypertensive heart disease with heart failure; I50.40 Unspecified combined systolic (congestive) and diastolic (congestive) heart failure; J44.9 Chronic obstructive pulmonary disease, unspecified; E78.5 Hyperlipidemia, unspecified; E78.2 Mixed hyperlipidemia; Z99.81 Dependence on supplemental oxygen; F17.210 Nicotine dependence, cigarettes, uncomplicated; W19.XXXA Unspecified fall, initial encounter
CPT/HCPCS: 36415; 70450; 71045; 72125; 80053; 83735; 83880; 84145; 84443; 84484; 85025; 93005; 99283; J7040

== ENCOUNTER → 2021-08-24 09:07 | Outpatient (BNVA) | payer MEDICARE, MEDICAID, SELFPAY | PROVIDERS: PCP Physician Assistant; Visit Provider Internal Medicine Cardiovascular Disease | DX: I50.22 Chronic systolic (congestive) heart failure (principal); I48.20 Chronic atrial fibrillation, unspecified; K21.00 Gastro-esophageal reflux disease with esophagitis, without bleeding; Z95.810 Presence of automatic (implantable) cardiac defibrillator; N18.9 Chronic kidney disease, unspecified; Z79.01 Long term (current) use of anticoagulants | CPT/HCPCS: 80048; 83880; 84443; 85025; 99214 ==

== ENCOUNTER 2021-09-04 08:45 | Outpatient (CLI) | payer MEDICARE, MEDICAID, SELFPAY ==
[2021-09-04 09:28] LABS: Anion Gap 15.8 (5-19); Blood Urea Nitrogen 33 mg/dL (8-23); Calcium 9.1 mg/dL (8.5-10.5); Carbon Dioxide 29 mmol/L (22-29); Chloride 100 mmol/L (98-107); Glomerular Filtration Rate 32.2 mL/min (90-130); Glucose 113 mg/dL (65-115); NT Pro B Type Natriuretic Pept 907 pg/mL (0-125); Osmolality Calculated 298 mOsm/kg (285-295); Potassium 4.8 mmol/L (3.5-5.1); Sodium 140 mmol/L (136-145)
== END 2021-09-04 08:46 | disposition home or self-care (01) ==
PROVIDERS: PCP Physician Assistant; Visit Provider Internal Medicine Cardiovascular Disease
DX: I25.110 Atherosclerotic heart disease of native coronary artery with unstable angina pectoris (principal); I25.5 Ischemic cardiomyopathy; R06.02 Shortness of breath; N17.9 Acute kidney failure, unspecified; I44.7 Left bundle-branch block, unspecified
CPT/HCPCS: 80048; 83880; 93005

== ENCOUNTER 2021-11-30 08:52 | Outpatient (CLI) | payer MEDICARE, MEDICAID, SELFPAY ==
--- NOTE | 2021-11-30 09:01 | MM_ITS ---
WS: [id number] Bilateral screening digital mammogram, 11/30/2021 Clinical Data: SCREENING Comparison: 02/10/2020, 01/07/2019. Findings: The breast parenchymal pattern shows fat replacement. No spiculated masses or clustered calcification s are seen. There are no secondary signs of carcinoma. There are lymph nodes in the right axilla. MM/[place] [id number] Impression: 1. Negative bilateral mammogram unchanged. 2. Recommend annual screening mammograms. BIRADS: 1-Negative FOLLOW UP: 1 Year Follow-up The CAD core checker was used.
== END 2021-11-30 08:53 | disposition home or self-care (01) ==
LOC: RAD 08:52
PROVIDERS: PCP Physician Assistant; Visit Provider Physician Assistant
DX: Z12.31 Encounter for screening mammogram for malignant neoplasm of breast (principal)
CPT/HCPCS: 77063; 77067

== ENCOUNTER → 2021-12-13 08:35 | Outpatient (BNVA) | payer MEDICARE, MEDICAID, SELFPAY | PROVIDERS: PCP Physician Assistant; Visit Provider Internal Medicine Cardiovascular Disease | DX: I50.22 Chronic systolic (congestive) heart failure (principal); I48.20 Chronic atrial fibrillation, unspecified; Z95.810 Presence of automatic (implantable) cardiac defibrillator; Z79.899 Other long term (current) drug therapy; F17.210 Nicotine dependence, cigarettes, uncomplicated | CPT/HCPCS: 36415; 80061; 83880; 93005; 93283; 99214 ==

== ENCOUNTER 2022-03-15 18:59 | Inpatient (IN) | payer MEDICARE, MEDICAID, SELFPAY ==
[2022-03-15 19:47] VITALS: BP 95/66; PULSE 70; RESP 18; TEMP 36.5; O2SAT 96; BMI 37.9
--- NOTE | 2022-03-15 20:03 | XRR_ITS ---
PROCEDURE INFORMATION: Exam: XR Chest Exam date and time: 03/15/2022 8:31 PM Age: 67 years old Clinical indication: Shortness of breath; Prior surgery; Surgery date: 6+ months; Additional info: SOB TECHNIQUE: Imaging protocol: Radiologic exam of the chest. Views: 1 view. COMPARISON: CR XR chest 1V portable [id number] 05/14/2021 2:30 PM FINDINGS: Tubes, catheters and devices: Left chest ICD. Lungs: Prominent pulmonary vasculature. Pleural spaces: Possible left pleural effusion. Negative for pneumothorax. Heart/Mediastinum: Significant cardiomegaly. Bones/joints: Unremarkable. XR/XR chest 1V portable [id number] IMPRESSION: Diffuse pulmonary vascular congestion changes consistent with congestive heart failure.
--- NOTE | 2022-03-15 21:04 | ECG_ITS ---
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 Measurements Intervals [place] Rate: 70 P: 132 VT: 256 QRS: -72 QRSD: 210 T: 101 QT: 500 QTc: 540 Interpretive Statements ELECTRONIC ATRIAL PACEMAKER LEFT AXIS DEVIATION [QRS AXIS < -30] INTRAVENTRICULAR CONDUCTION DELAY [130+ ms QRS DURATION] Compared to ECG 05/14/2021 17:08:25 Left-axis deviation now present Intraventricular conduction delay now present Ventricular-paced complex(es) or rhythm no longer present Electronically Signed On 03-17-2022 7:53:15 STATIONARY ENGINEER by Lidia Corona M.D. [id number]
[2022-03-15 21:15] LABS: Basophils % 0.1 %; Hematocrit 37.6 % (37.0-47.0); Lymphocytes # 1.8 10^3/uL (0.8-4.8); Mean Corpuscular HGB Conc 31.9 g/dL (30.0-36.0); Mean Corpuscular Hemoglobin 32.1 pg (28.0-34.0); Mean Corpuscular Volume 100.5 fl (81-99); Mean Platelet Volume 10.2 fL (7.4-10.4); Monocytes # 0.5 10^3/uL (0.2-0.9); Monocytes % 4.8 %; Neutrophils # 7.74 10^3/uL (1.8-7.7); Neutrophils % 76.5 %; Nucleated Red Blood Cells % 0 %; Platelet Count 176 10^3/cmm (130-400); Red Blood Count 3.74 10^6/uL (4.1-5.3); Red Cell Distribution Width 15.1 % (12.1-15.1); White Blood Count 10.1 10^3/uL (4.0-10.0)
--- NOTE | 2022-03-15 21:17 | ED_ITS ---
HPI - SOB/Dyspnea General: Chief Complaint: Shortness of Breath/Dyspnea Stated Complaint: SOB\Shoulder Pain Time Seen by Provider: 03/15/22 20:53 Source: patient Mode of arrival: ambulatory Limitations: no limitations History of Present Illness: HPI Narrative: 67-year-old female has a history of COPD along with CHF states she wears 2 L oxygen at home as needed she states that over the last evening she had some increasing shortness of breath and has been wearing her 2 L she is 98% on that. She denies any cough denies any fever denies any worsening proving factors. PFSH ED PFSH: Medical History AICD discharge AICD discharge Arthritis Asthma Atherosclerotic heart disease of [place] coronary artery with other forms of angina pectoris Cardiac cath in April 2019 revealed No significant disease noted in the Left Main, LAD, Circumflex, or RCA coronary arteries. The right coronary artery was extensively stented with the patent stents. LVEDP was 13 mmHg. LV gram was not performed because of th eabnormal kidney function Atherosclerotic heart disease of [place] coronary artery with unstable angina pectoris Back pain Cardiomyopathy Chronic episodic atrial fibrillation Pt has massive GI bleed and is not wanting to take oral anticoagulant Combined systolic and diastolic heart failure Ejection fraction 30%, grade 1/4 diastolic dysfunction COPD (chronic obstructive pulmonary disease) Coronary artery disease Degenerative joint disease (DJD) of lumbar spine Depression Dyslipidemia Fall Gout Gout, arthritis Gout, arthritis H/O coronary angiogram Showed patent stented segment of RCA with diffuse disease in other vessels High risk medication use Immunization counseling Ischemic cardiomyopathy with implantable cardioverter-defibrillator (ICD) Mixed hyperlipidemia Neuropathy Osteoarthritis Oxygen dependent Sleep apnea uses Bipap at night with 2 L o2 Sleep apnea syndrome Sleep apnea with mood disorder Smoker Smoking Tendinopathy of rotator cuff Ventricular tachycardia Surgical History AICD (automatic cardioverter/defibrillator) present ICD placement in 2012 with generator change by Dr. Boucher on 05/21/2018 History of appendectomy History of tubal ligation Hx of tonsillectomy Family History Father Hypertension CAD (coronary artery disease) Mother Diabetes CAD (coronary artery disease) Cancer Lung disease Brother No problems noted. Sister Cancer Dementia Diabetes Family/Other CAD (coronary artery disease) Cancer Diabetes Father No problems noted. Grandmother CAD (coronary artery disease) Cancer Lung disease Grandfather CAD (coronary artery disease) Other Stroke Denies family history of Rheumatoid arthritis Lupus Clotting disorder Chronic kidney disease (CKD) Suicide Anesthesia complication Bleeding disorder Social History Smoking and tobacco status: current every day smoker cigarettes Alcohol intake: never Lives independently: Yes Marital status: / Physical Exam Const: COMMON NORMALS: no acute distress, patient oriented x3 and healthy appearing HENMT: COMMON NORMALS: normocephalic and atraumatic HEAD & SCALP: normocephalic and atraumatic Eye: COMMON NORMALS: Equal, round and reactive pupils present and EOMs intact bilaterally PUPIL: Yes Equal, round and reactive pupils present Neck/C-Spine: COMMON NORMALS: full ROM and supple Chest: COMMONS NORMALS: normal inspection of the chest and normal palpation of entire chest wall Resp: COMMON NORMALS: normal respiratory effort, No retractions, No use of accessory muscles and clear to auscultation bilaterally AUSCULTATION: clear to auscultation bilaterally Cardio: COMMON NORMALS: regular rate, regular rhythm and No murmurs present (Cardio) RATE: regular rate RHYTHM: regular rhythm GI: COMMON NORMALS: Normal to inspection, nondistended, normoactive bowel sounds present, Soft to palpation, non-tender and no masses PALPATION: Yes Soft to palpation Extremity: COMMON NORMALS: normal to inspection and full ROM Neuro: COMMON NORMALS: patient oriented x3, moves all extremities and no focal motor deficits Psych: COMMON NORMALS: mental status grossly normal, Normal thought process present and cooperative THOUGHT PROCESS: Normal thought process present Skin: COMMON NORMALS: no rashes or lesions noted and no wounds GENERAL SKIN EXAM: no rashes or lesions noted Course Vital Signs: Vital signs: Vital Signs Temperature 97.7 F 03/15/22 19:47 Pulse Rate 70 03/15/22 19:47 Respiratory Rate 18 03/15/22 19:47 Blood Pressure 95/66 03/15/22 19:47 Pulse Oximetry 96 03/15/22 19:47 Oxygen Delivery Me thod 03/15/22 19:47 Oxygen Flow Rate 2 03/15/22 19:47 MDM - SOB/Dyspnea Medical Decision Making Patient presents here with shortness of breath she does have some edema x-ray shows pulm edema BNP is elevated consistent with a CHF exacerbation patient given Lasix here I spoke to the hospitalist will admit at this time. Lab Data 03/15/22 21:10 03/15/22 21:10 Labs/Radiology: Radiology Impressions Chest X-Ray 03/15/22 20:03 IMPRESSION: Diffuse pulmonary vascular congestion changes consistent with congestive heart failure. Laboratory Results WBC 10.1 10^3/uL (4.0-10.0) H 03/15/22 21:10 RBC 3.74 10^6/uL (4.1-5.3) L 03/15/22 21:10 Hgb 12.0 g/dL (11.5-15.3) 03/15/22 21:10 Hct 37.6 % (37.0-47.0) 03/15/22 21:10 MCV 100.5 fl (81-99) H 03/15/22 21:10 MCH 32.1 pg (28.0-34.0) 03/15/22 21:10 MCHC 31.9 g/dL (30.0-36.0) 03/15/22 21:10 RDW 15.1 % (12.1-15.1) 03/15/22 21:10 Plt Count 176 10^3/cmm (130-400) 03/15/22 21:10 MPV 10.2 fL (7.4-10.4) 03/15/22 21:10 Neut % (Auto) 76.5 % 03/15/22 21:10 Lymph % (Auto) 18.0 % 03/15/22 21:10 Falls % (Auto) 4.8 % 03/15/22 21:10 Eos % (Auto) 0.0 % 03/15/22 21:10 Baso % (Auto) 0.1 % 03/15/22 21:10 Neut # (Auto) 7.74 10^3/uL (1.8-7.7) H 03/15/22 21:10 Lymph # (Auto) 1.8 10^3/uL (0.8-4.8) 03/15/22 21:10 Falls # (Auto) 0.5 10^3/uL (0.2-0.9) 03/15/22 21:10 Eos # (Auto) 0.0 10^3/uL (0.0-0.8) 03/15/22 21:10 Baso # (Auto) 0.0 10^3/uL (0.0-0.1) 03/15/22 21:10 Nucleated RBC % (auto) 0 % 03/15/22 21:10 Nucleated RBCs # 0.0 /100WBC 03/15/22 21:10 Sodium 134 mmol/L (136-145) L 03/15/22 21:10 Potassium 5.0 mmol/L (3.5-5.1) 03/15/22 21:10 Chloride 98 mmol/L (98-107) 03/15/22 21:10 Carbon Dioxide 23 mmol/L (22-29) 03/15/22 21:10 Anion Gap 18.0 (5-19) 03/15/22 21:10 BUN 33 mg/dL (8-23) H 03/15/22 21:10 Creatinine 2.2 mg/dL (0.5-0.9) H 03/15/22 21:10 GFR Calculation 22.3 mL/min (90-130) L 03/15/22 21:10 Glucose 156 mg/dL (65-115) H 03/15/22 21:10 Calculated Osmolality 288 mOsm/kg (285-295) 03/15/22 21:10 Calcium 9.7 mg/dL (8.5-10.5) 03/15/22 21:10 Total Bilirubin 0.4 mg/dL (0.15-1.2) 03/15/22 21:10 AST 17 U/L (0-32) 03/15/22 21:10 ALT 15 U/L (0-33) 03/15/22 21:10 Alkaline Phosphatase 75 U/L (35-105) 03/15/22 21:10 Troponin T Baseline 32 ng/L (0-10) H 03/15/22 21:10 NT-Pro-B Natriuret Pep 35938 pg/mL (0-125) H 03/15/22 21:10 Total Protein 6.9 g/dL (6.6-8.7) 03/15/22 21:10 Albumin 4.1 g/dL (3.5-5.2) 03/15/22 21:10 Globulin 2.8 g/dL (1.3-4.6) 03/15/22 21:10 Discharge Plan Discharge Patient Disposition: Admitted As Inpatient Admit Provider: Virgilio Santana Clinical Impression: CHF exacerbation Condition: Stable Coding Level of Care Code ED Gas Line Installer for Chg Fwd Exam Comprehensive
[2022-03-15] MEDS: FUROsemide 10 mg/mL SDV 4mL 40 MG IVP (21:29)
[2022-03-15 21:39] LABS: Troponin(5th) Baseline 32 ng/L (0-10)
[2022-03-15 21:47] LABS: Alanine Aminotransferase 15 U/L (0-33); Albumin Level 4.1 g/dL (3.5-5.2); Alkaline Phosphatase 75 U/L (35-105); Aspartate Amino Transferase 17 U/L (0-32); Blood Urea Nitrogen 33 mg/dL (8-23); Calcium 9.7 mg/dL (8.5-10.5); Carbon Dioxide 23 mmol/L (22-29); Chloride 98 mmol/L (98-107); Globulin 2.8 g/dL (1.3-4.6); Glomerular Filtration Rate 22.3 mL/min (90-130); Glucose 156 mg/dL (65-115); NT Pro B Type Natriuretic Pept 17565 pg/mL (0-125); Osmolality Calculated 288 mOsm/kg (285-295); Sodium 134 mmol/L (136-145); Total Bilirubin 0.4 mg/dL (0.15-1.2); Total Protein 6.9 g/dL (6.6-8.7)
[2022-03-15] MEDS: FUROsemide 10 mg/mL SDV 10mL 60 MG IVP (22:08)
[2022-03-15 22:23] VITALS: BP 104/55; PULSE 70; RESP 20; O2SAT 94
--- NOTE | 2022-03-15 22:37 | PM.HP ---
Providers/Chief Complaint Admitting Physician: Virgilio Santana MD Primary Care Provider: Lois Sorto Chief Complaint: SOB\Shoulder Pain History of Present Illness Amber White is a 67 year old female patient of Dr. Saldaña, history of systolic heart failure A. fib status post AICD placement takes Lasix 80 mg a day presented with shortness of breath. At baseline she uses 2 L of oxygen. Patient is stating that she has been expressing her left-sided shoulder pain which started in last 72 hours, it is not associated with food intake, she has not noticed any chest pain, nausea, vomiting, fever she is also experiencing dry cough and bronchitis related symptoms, her PCP gave her azithromycin and Augmentin she only took 2 doses so far along prednisone. He decided to come to the hospital for worsening of shortness of breath and generalized fatigue. Patient is compliant with her medications stating that her normally blood pressures between 110s to 120 mmHg, in the ER she was diagnosed with CHF exacerbation she received 100 mg of Lasix however she has not made any urine at all, at home she takes 40 mg of Lasix No signs of chest pain, troponin now without significant delta BNP 17,000 Chest x-ray showing diffuse pulmonary congestion Review of Systems Const: Reports: chills and fatigue Eyes: Denies: change in vision ENMT: Denies: throat pain Card: Reports: swelling of feet/ankles, dyspnea on exertion and orthopnea Resp: Reports: dyspnea GI: Denies: abdominal pain or coffee ground emesis : Denies: flank pain Musc: Denies: neck pain Skin/Breast: Denies: rash Neuro: Denies: headache(s) Psych: Denies: anxiety Endo: Denies: polyuria Mert/Lymph: Denies: easy bruising All/Imm: Denies: urticaria Medications/Allergies Home Medications Medication Instructions Recorded Confirmed Last Taken Type levocetirizine 5 mg tablet 5 mg PO DAILY 04/15/19 08/24/21 08/09/20 08:00 History ascorbic acid (vitamin C) 500 mg 500 mg PO DAILY 08/09/20 08/24/21 08/09/20 08:00 History tablet (Vitamin C) aspirin 81 mg chewable tablet 81 mg PO DAILY 08/09/20 08/24/21 08/09/20 08:00 History magnesium oxide 250 mg PO DAILY 08/09/20 08/24/21 08/09/20 08:00 History multivitamin 1 tab PO DAILY 08/09/20 08/24/21 08/09/20 08:00 History spironolactone 25 mg tablet 25 mg PO DAILY 08/09/20 08/24/21 08/09/20 08:00 History Fish Oil 1 cap PO DAILY 08/16/20 08/24/21 Unknown History albuterol sulfate 2.5 mg/3 mL 2.5 mg inhalation Q6H PRN 08/16/20 08/24/21 Unknown History (0.083 %) solution for nebulization Shortness Of Breath albuterol sulfate 90 mcg/actuation 1 - 2 puff inhalation QID PRN 08/16/20 08/24/21 Unknown History aerosol inhaler (Ventolin HFA) Shortness Of Breath nitroglycerin 0.4 mg sublingual 0.4 mg sublingual Q5M PRN Chest 08/16/20 08/24/21 Unknown History tablet (Nitrostat) Pain alprazolam 0.25 mg tablet (Xanax) 0.125 mg PO BID PRN anxiety #10 09/21/20 08/24/21 Unknown Rx tabs gabapentin 300 mg capsule 300 mg PO TID 09/21/20 08/24/21 Unknown History metoprolol succinate 25 mg 25 mg PO DAILY 09/21/20 08/24/21 Unknown History tablet,extended release 24 hr rosuvastatin 40 mg tablet 40 mg PO DAILY 09/21/20 08/24/21 Unknown History sacubitril 24 mg-valsartan 26 mg 1 tab PO BID 09/21/20 08/24/21 Unknown History tablet prednisone 20 mg tablet See Rx Instructions PO .COMPLEX 11/07/20 08/24/21 Unknown Rx PRN joint pain flare #30 tabs amiodarone 200 mg tablet 400 mg PO DAILY 02/22/21 08/24/21 Unknown History montelukast 10 mg tablet 10 mg PO DAILY 08/24/21 08/24/21 Unknown History potassium chloride 10 mEq 10 meq PO DAILY #90 tabs 08/24/21 08/25/21 Unknown Rx tablet,extended release umeclidinium 62.5 mcg/actuation 1 inh inhalation DAILY 08/24/21 08/24/21 Unknown History blister powder for inhalation (Incruse Ellipta) apixaban 5 mg tablet 5 mg PO BID #180 tabs 10/11/21 Unknown Rx furosemide 80 mg tablet 80 mg PO DAILY see all pharmacy 12/13/21 Unknown Rx comments #90 tabs allopurinol 300 mg tablet See Rx Instructions .Route 03/12/22 Unknown Rx .COMPLEX #90 tabs Allergies Allergy/AdvReac Type Severity Reaction Status Date / Time povidone-iodine Allergy Mild Unknown Verified 12/13/21 07:43 [From Betadine] PFSH Acute PFSH: Medical History AICD discharge AICD discharge Arthritis Asthma Atherosclerotic heart disease of [place] coronary artery with other forms of angina pectoris Cardiac cath in April 2019 revealed No significant disease noted in the Left Main, LAD, Circumflex, or RCA coronary arteries. The right coronary artery was extensively stented with the patent stents. LVEDP was 13 mmHg. LV gram was not performed because of theabnormal kidney function Atherosclerotic heart disease of [place] coronary artery with unstable angina pectoris Back pain Cardiomyopathy Chronic episodic atrial fibrillation Pt has massive GI bleed and is not wanting to take oral anticoagulant Combined systolic and diastolic heart failure Ejection fraction 30%, grade 1/4 diastolic dysfunction COPD (chronic obstructive pulmonary disease) Coronary artery disease Degenerative joint disease (DJD) of lumbar spine Depression Dyslipidemia Fall Gout Gout, arthritis Gout, arthritis H/O coronary angiogram Showed patent stented segment of RCA with diffuse disease in other vessels High risk medication use Immunization counseling Ischemic cardiomyopathy with implantable cardioverter-defibrillator (ICD) Mixed hyperlipidemia Neuropathy Osteoarthritis Oxygen dependent Sleep apnea uses Bipap at night with 2 L o2 Sleep apnea syndrome Sleep apnea with mood disorder Smoker Smoking Tendinopathy of rotator cuff Ventricular tachycardia Surgical History AICD (automatic cardioverter/defibrillator) present ICD placement in 2012 with generator change by Dr. Boucher on 05/21/2018 History of appendectomy History of tubal ligation Hx of tonsillectomy Family History Father Hypertension CAD (coronary artery disease) Mother Diabetes CAD (coronary artery disease) Cancer Lung disease Brother No problems noted. Sister Cancer Dementia Diabetes Family/Other CAD (coronary artery disease) Cancer Diabetes Father No problems noted. Grandmother CAD (coronary artery disease) Cancer Lung disease Grandfather CAD (coronary artery disease) Other Stroke Denies family history of Rheumatoid arthritis Lupus Clotting disorder Chronic kidney disease (CKD) Suicide Anesthesia complication Bleeding disorder Social History Smoking and tobacco status: current every day smoker cigarettes Alcohol intake: never Lives independently: Yes Marital status: / Vitals/I&O/Wt Last Vital Signs Temp 97.7 F 03/15/22 19:47 Pulse 70 03/15/22 19:47 Resp 18 03/15/22 19:47 BP 95/66 03/15/22 19:47 Pulse Ox 96 03/15/22 19:47 O2 Del Method 03/15/22 19:47 O2 Flow Rate 2 03/15/22 19:47 Weight last 48 hrs Weight 116.573 kg Physical Exam Narrative: Clinical signs of fluid overload 2+ pitting edema of legs Awake and alert Variable S1-S2 Patient has mild crackles of base of the lungs Currently on 2 L of oxygen However when I entered her oxygen was not hooked up she was saturating 94% on room air She is not in distress Fatigued and lethargic Rotator cuff impingement noted on right shoulder maneuvers Nonfocal neuro exam Family at the bedside Abdomen is soft Distended nontender Data 03/15/22 21:10 03/15/22 21:10 A&P Assessment and plan (1) CHF exacerbation: (2) ICD (implantable cardioverter-defibrillator), dual, in situ: (3) Gout: (4) Chronic episodic atrial fibrillation: (5) GERD (gastroesophageal reflux disease): Qualifiers: Esophagitis presence: with esophagitis Esophagitis bleeding: without hemorrhage Qualified Code(s): K21.00 - Gastro-esophageal reflux disease with esophagitis, without bleeding (6) Lumbar stenosis with neurogenic claudication: (7) Degenerative joint disease (DJD) of lumbar spine: Qualifiers: Spinal osteoarthritis complication: unspecified spinal osteoarthritis Qualified Code(s): M47.816 - Spondylosis without myelopathy or radiculopathy, lumbar region (8) Tendinopathy of rotator cuff: Qualifiers: Laterality: right Qualified Code(s): M67.911 - Unspecified disorder of synovium and tendon, right shoulder (9) Acute kidney injury: (10) Cardiomyopathy: Qualifiers: Cardiomyopathy type: ischemic Qualified Code(s): I25.5 - Ischemic cardiomyopathy Plan Acute systolic CHF exacerbation I will give her Lasix please note she got 100 mg of Lasix and has not voided urine in the ER If she does not respond to Lasix could be switched to Bumex for appropriate response No active chest pain No recent AICD discharge as per the patient Her right shoulder pain is chronic she does have positive test for rotator cuff muscle injury/impingement She can have Tylenol Patient is very fatigued and lethargic and initially get short of breath on exertion at rest she is saturating well on room air 94% however requires 2 L at baseline She is full code stating that if she calls resuscitation should not be more than 10 minutes Cardiac diet IV Lasix Acute on chronic kidney disease likely cardiorenal anticipating improvement with diuresis Anticipating discharge within 48 hours DVT prophylaxis Heparin History of A. fib not on anticoagulating agent for history of GI bleed I would hold her Entresto because of worsening of creatinine and low blood pressure Attestations Medical Necessity Statement*: Anticipating discharge within 48 hours Time Spent in Patient Care: 40 Coding Level of Care Code Acute Wool Carder for g Fwd Diagnoses CHF exacerbation I50.9 ICD (implantable cardioverter-defibrillator), dual, in situ Z95.810 Gout M10.9 Chronic episodic atrial fibrillation I48.20 GERD (gastroesophageal reflux disease) K21.00 Esophagitis presence: with esophagitis Esophagitis bleeding: without hemorrhage Lumbar stenosis with neurogenic claudication M48.062 Degenerative joint disease (DJD) of lumbar spine M47.816 Spinal osteoarthritis complication: unspecified spinal osteoarthritis Tendinopathy of rotator cuff M67.911 Laterality: right Acute kidney injury N17.9 Cardiomyopathy I25.5 Cardiomyopathy type: ischemic
[2022-03-15 23:55] VITALS: BP 114/77; PULSE 69; RESP 16; O2SAT 96
[2022-03-16] VITALS (12 sets, daily range): BP systolic 98–115; BP diastolic 63–78; PULSE 68–89; RESP 16–28; TEMP 36.3–36.4; O2SAT 96–98
[2022-03-16] MEDS: acetaminophen 500 mg Tablet PO ×3 (00:24→10:08)
--- NOTE | 2022-03-16 02:03 | ECG_ITS ---
[facility] Test Date: 2022-03-15 Pat Name: Amber White Department: Room: 255 Gender: Female Compressed Gases Tester: : 1955 Requested By: Navin Lowe Order Number: [id number] Anabel MD: Ba Davis M.D. Measurements Intervals [place] Rate: 69 P: 100 TN: 269 QRS: -80 QRSD: 203 T: 95 QT: 502 QTc: 540 Interpretive Statements ELECTRONIC ATRIAL PACEMAKER INTRAVENTRICULAR CONDUCTION DELAY [130+ ms QRS DURATION] ANTEROSEPTAL MYOCARDIAL INFARCTION , OF INDETERMINATE AGE [40+ ms Q WAVE IN V1-V4] Compared to ECG 03/15/2022 21:04:26 Myocardial infarct finding now present Left-axis deviation no longer present Electronically Signed On 03-18-2022 20:00:28 IT QUALITY ASSURANCE ANALYST by Ba Davis M.D. [id number]
[2022-03-16 03:56] LABS: Basophils % 0.1 %; Hematocrit 36.8 % (37.0-47.0); Hemoglobin 11.9 g/dL (11.5-15.3); Lymphocytes # 1.7 10^3/uL (0.8-4.8); Lymphocytes % 20.9 %; Mean Corpuscular HGB Conc 32.3 g/dL (30.0-36.0); Mean Corpuscular Hemoglobin 32.6 pg (28.0-34.0); Mean Corpuscular Volume 100.8 fl (81-99); Mean Platelet Volume 10.4 fL (7.4-10.4); Monocytes # 0.1 10^3/uL (0.2-0.9); Monocytes % 1.1 %; Neutrophils # 6.15 10^3/uL (1.8-7.7); Neutrophils % 77.3 %; Nucleated Red Blood Cells % 0 %; Platelet Count 173 10^3/cmm (130-400); Red Blood Count 3.65 10^6/uL (4.1-5.3); Red Cell Distribution Width 15.2 % (12.1-15.1)
--- NOTE | 2022-03-16 04:06 | PC.NURSE ---
late entry: 329, patient sitting up on edge of bed, eating snack, continues to report pain 8/10 to right shoulder, states the tylenol did not help, offered her the ordered morphine, declined at this time, states she doesn't want to take morphine, but may have to if shoulder continues to hurt
[2022-03-16 04:18] LABS: Troponin 5 6HR 34.67 ng/L (0-10)
[2022-03-16 04:20] LABS: Anion Gap 18.8 (5-19); Blood Urea Nitrogen 37 mg/dL (8-23); Calcium 9.5 mg/dL (8.5-10.5); Carbon Dioxide 23 mmol/L (22-29); Chloride 96 mmol/L (98-107); Glomerular Filtration Rate 19.2 mL/min (90-130); Glucose 215 mg/dL (65-115); Magnesium 2.6 mg/dL (1.7-2.3); Osmolality Calculated 291 mOsm/kg (285-295); Potassium 4.8 mmol/L (3.5-5.1); Sodium 133 mmol/L (136-145); Troponin 5 6HR Delta 2.67 ng/L (0-12)
[2022-03-16] MEDS: FUROsemide 10 mg/mL SDV 10mL 60 MG IVP ×2 (06:36→17:06)
[2022-03-16] MEDS: amiodarone 200 mg Tablet 400 MG PO (09:52)
[2022-03-16] MEDS: aspirin 81 mg Chew Tablet PO (09:52)
[2022-03-16] MEDS: allopurinol 300 mg Tablet PO (09:52)
[2022-03-16] MEDS: amoxicillin-clav 875-125 mg Tablet 1 TAB PO ×2 (09:53→17:06)
[2022-03-16] MEDS: apixaban 5 mg Tablet PO ×2 (09:53→17:06)
[2022-03-16] MEDS: sennosides-docusate Tablet 1 TAB PO (09:53)
[2022-03-16] MEDS: atorvastatin 40 mg Tablet 80 MG PO (09:53)
[2022-03-16] MEDS: potassium chloride ER 10 mEq Tablet PO (09:54)
--- NOTE | 2022-03-16 10:00 | XR_ITS ---
WS: [id number] XR shoulder RT 1V [id number] REASON FOR EXAM: rt shoulder pain FINDINGS: No focal bone abnormality. Linear calcification in the deltoid insertion on the acromial process. Acromioclavicular joint spaces well-preserved. Small subchondral sclerosis and marginal osteophytosis . Glenohumeral joint is intact. Mild to moderate subchondral and cystic change in the greater tuberosity of the humerus. XR/XR shoulder RT 1V [id number] IMPRESSION: No acute abnormality. Mild osteoarthritis of the acromioclavicular joint. Mild to moderate rotator cuff tendon arthropathy. Deltoid tendon calcification chronicity unknown, likely old posttraumatic. Less likely calcific tendinitis.
[2022-03-16] MEDS: ipratropium-albuterol 3 mL Neb INHALATION ×2 (10:06→15:13)
--- NOTE | 2022-03-16 10:33 | PC.CHAP ---
Pastoral Care Encounter/Spiritual Assessment Type of Contact [] Declined advanced manufacturing technician visit [] Patient/Family/Request visit [] Outpatient visit [] Follow-up visit [] Physician referral [] Code/Alert [x] Routine visit [] Staff referral [] Actively dying [] Patient sleeping [] Family support [] [] Out of room [] Palliative care [] [] Receiving care in room [] Pre-surgical visit [] Trauma [] Long length of stay [] ICU visit [] Other: Relational/Emotional Strength [x] Patient feels connected with others/family/visitors/staff [] Distress [] Loneliness/isolation [] Abandonment Spirituality of Patient [x] Person of [place]anni [] Attends Nondenominational of their [place] [x] Believes in Prayer [] Reads Bible or Synagogue materials [] There are Spiritual issues to be addressed Manager Investigations Interventions [x] Prayer [] Active listening [] Non-anxious presence [] Spiritual/emotional support [] Crisis/trauma care [] Spiritual counseling [] Bereavement support [] Provided bereavement packet [x] Provided Bible/devotional materials [] Provided toy/stuffed animal, coloring book to patient or family member [] Provided Communion [] Anointing/[place] [] Salvation [x] Completed spiritual assessment [] Other: Impact on Illness or Injury [] Angry [] Fearful [] Anxious [] Often cries [] Exhaustion [] Unable to work [] Unable to attend zoroastrian [] Unable to walk/stand [] Unable to read [] Unable to drive [] Unable to eat/drink [] Unable to sleep [] Unable to be with family [] Patient intubated [] Other: Summary Time spent with patient 5 min
[2022-03-16] MEDS: diclofenac 1% Topical Gel 100 gm 1 APPLIC TOPICAL ×3 (13:19→22:38)
[2022-03-16] MEDS: ALPRAZolam 0.5 mg Tablet 0.25 MG PO ×2 (16:15→22:38)
[2022-03-16] MEDS: metOLazone 5 MG Tablet PO ×2 (16:36→22:37)
--- NOTE | 2022-03-16 17:26 | P.PN_ITS ---
Subjective Subjective: Patient was seen and examined this morning, shortness of breath is improved.She was complaining of right shoulder pain, x-ray right shoulder: Has not shown any acute abnormality, mild osteoarthritis of ACL joint Mild to moderate rotator cuff tendon arthropathy.750CC urine output so far. Medications: Medication Review Details: Generic Name Dose Route Start Last Admin Trade Name Freq PRN Reason Stop Dose Admin Acetaminophen 500 mg 03/16/22 00:12 03/16/22 10:08 Acetaminophen 50 0 Mg Tablet PO 500 mg Q4H PRN Administration fever Albuterol/Ipratrop ium 3 ml 03/16/22 00:45 03/16/22 15:13 Ipratropium-Albu terol 3 Ml Neb INHALATION 3 ml Q6H PRN Administration SHORTNESS OF AUREA TH Allopurinol 300 mg 03/16/22 09:00 03/16/22 09:52 Allopurinol 300 Mg Tablet PO 300 mg DAILY MINGO Administration Alprazolam 0.25 mg 03/16/22 15:36 03/16/22 16:15 Alprazolam 0.5 M g Tablet PO 0.25 mg BID PRN Administration ANXIETY Amiodarone HCl 400 mg 03/16/22 09:00 03/16/22 09:52 Amiodarone 200 M g Tablet PO 400 mg DAILY MINGO Administration Amoxicillin/Clavul anate Potassium 1 tab 03/16/22 09:00 03/16/22 17:06 Amoxicillin-Clav 875-125 Mg Tablet PO 1 tab BID MINGO Administration Protocol Apixaban 5 mg 03/16/22 09:00 03/16/22 17:06 Apixaban 5 Mg Ta blet PO 5 mg BID MINGO Administration Aspirin 81 mg 03/16/22 09:00 03/16/22 09:52 Aspirin 81 Mg Ch ew Tablet PO 81 mg DAILY MINGO Administration Atorvastatin Calci um 80 mg 03/16/22 09:00 03/16/22 09:53 Atorvastatin 40 Mg Tablet PO 80 mg DAILY MINGO Administration Diclofenac Sodium 1 applic 03/16/22 13:00 03/16/22 16:16 Diclofenac 1% To pical Gel 100 Gm TOPICAL 1 applic QID MINGO Administration Furosemide 60 mg 03/16/22 06:00 03/16/22 17:06 Furosemide 10 Mg /Ml Sdv 10ml IVP 60 mg Q12H MINGO Administration Metolazone 5 mg 03/16/22 17:30 03/16/22 16:36 Metolazone 5 Mg Tablet PO 5 mg DAILY MINGO Administration Potassium Chloride 10 meq 03/16/22 09:00 03/16/22 09:54 Potassium Chlori de Er 10 Meq Table t PO 10 meq DAILY MINGO Administration Senna/Docusate Sod ium 1 tab 03/16/22 09:00 03/16/22 09:53 Sennosides-Docus ate Tablet PO 1 tab DAILY MINGO Administration Vitals/I&O/Wt Last Vital Signs Temp 97.4 F L 03/16/22 04:00 Pulse 70 03/16/22 16:00 Resp 19 H 03/16/22 16:00 BP 98/66 03/16/22 16:00 Pulse Ox 97 03/16/22 16:00 O2 Del Method 03/16/22 15:20 O2 Flow Rate 3 03/16/22 15:20 03/16/22 03/16/22 03/16/22 06:59 14:59 22:59 Intake Total 480 / 480 840 / 840 Output Total 0 / 0 400 / 400 Balance 480 / 480 440 / 440 Weight last 48 hrs Weight 116.573 kg Physical Exam Resp: OTHER: Diminished air entry bilaterally Cardio: COMMON NORMALS: regular rate, regular rhythm, S1 normal heart sound present, S2 normal heart sound present, No gallops present (Cardio), No murmurs present (Cardio), No rub (Cardio) and Peripheral pulses 2+ throughout RATE: r egular rate RHYTHM: regular rhythm HEART SOUNDS: S1 normal heart sound present and S2 normal heart sound present PERIPHERAL PULSES: Peripheral pulses 2+ throughout GI: COMMON NORMALS: Normal to inspection, nondistended, normoactive bowel sounds present, Soft to palpation, non-tender, No hepatosplenomegaly present and no masses AUSCULTATION: Yes normoactive bowel sounds PALPATION: Yes Soft to palpation and Yes No hepatosplenomegaly present RECTAL EXAM: deferred Extremity: COMMON NORMALS: no clubbing, cyanosis or edema and no pedal edema Data 03/16/22 03:50 03/16/22 03:50 A&P Assessment and plan (1) CHF exacerbation: (2) ICD (implantable cardioverter-defibrillator), dual, in situ: (3) Chronic episodic atrial fibrillation: Plan 65 year old female who has history of chronic atrial fibrillation, ischemic cardiomyopathy PCI to right coronary mixed systolic diastolic congestive heart failure status post AICD placement(EF 30%) was brought in with chief complaint of worsening shortness of breath as well as cough going on for the last few days extremely bad yesterday, she was being treated as an outpatient by her PCP with azithromycin Augmentin, and prednisone for possible bronchitis. Currently she is being managed for Assessment Decompensated heart failure YUDI on CKD: Baseline serum creatinine appears to be around 1.5-1.6: Possibly secondary CRS 2/2 decompensated heart failure History of chronic atrial fibrillation History of coronary artery disease Bronchitis Tendinopathy of rotator cuff: History of gout Plan: X-ray chest: Is showing diffuse pulmonary vascular congestion, elevated proBNP: [id number], Currently she is on Lasix 60 twice daily we will add metolazone 10 p.o. daily starting tomorrow. She has received metolazone 5 mg p.o. today. Monitor intake output charting Monitor electrolytes K>4 ,MG>2 Monitor daily weight Avoid nephrotoxic's Telemetry monitoring Continue amiodarone Continue aspirin Eliquis Continue Augmentin CODE STATUS: Full code DVT prophylaxis: Not needed on Eliquis Attestations Medical Necessity Statement*: Patient is still in hospital for management of decompensated heart failure. Coding Level of Care Code Acute Assistant Engineer for Miguelina Fwd Exam Expanded Problem Focused Diagnoses CHF exacerbation I50.9 ICD (implantable cardioverter-defibrillator), dual, in situ Z95.810 Chronic episodic atrial fibrillation I48.20
--- NOTE | 2022-03-16 22:32 | XRR_ITS ---
PROCEDURE INFORMATION: Exam: XR Chest Exam date and time: 03/16/2022 10:40 PM Age: 67 years old Clinical indication: Shortness of breath; Prior surgery; Surgery date: 1-6 months; Additional info: SOB TECHNIQUE: Imaging protocol: Radiologic exam of the chest. Views: 1 view. COMPARISON: CR (CHEST, ) 03/15/2022 8:31 PM FINDINGS: Tubes, catheters and devices: There is a dual-lead AICD with leads positioned in the right atrium and right ventricle. Lungs: Ill-defined opacity in the central lower lungs bilaterally. Pleural spaces: The left lateral costophrenic sulcus is blunted. The right lateral costophrenic sulcus is blunted. There is no pneumothorax. Heart/Mediastinum: There is moderate enlargement of the cardiac silhouette. Bones/joints: Bones are unremarkable. XR/XR chest 1V portable [id number] IMPRESSION: Stable cardiac enlargement, bilateral pleural effusions and infrahilar opacities suggesting pulmonary edema. Infection is not excluded. There is no change since yesterday.
[2022-03-16] MEDS: bumetanide 0.25 mg/mL SDV 4 mL 1 MG IVP (22:38)
[2022-03-17] VITALS (55 sets, daily range): BP systolic 80–123; BP diastolic 50–83; PULSE 67–79; RESP 2–29; TEMP 35.8–36.6; O2SAT 91–100
[2022-03-17 05:09] LABS: Hematocrit 37.5 % (37.0-47.0); Hemoglobin 11.9 g/dL (11.5-15.3); Lymphocytes # 1.4 10^3/uL (0.8-4.8); Lymphocytes % 10.8 %; Mean Corpuscular HGB Conc 31.7 g/dL (30.0-36.0); Mean Corpuscular Hemoglobin 32.3 pg (28.0-34.0); Mean Corpuscular Volume 101.9 fl (81-99); Mean Platelet Volume 11.1 fL (7.4-10.4); Monocytes # 1.1 10^3/uL (0.2-0.9); Monocytes % 8.9 %; Neutrophils # 9.98 10^3/uL (1.8-7.7); Neutrophils % 79.6 %; Nucleated Red Blood Cells % 0 %; Platelet Count 180 10^3/cmm (130-400); Red Blood Count 3.68 10^6/uL (4.1-5.3); Red Cell Distribution Width 14.9 % (12.1-15.1); White Blood Count 12.5 10^3/uL (4.0-10.0)
[2022-03-17 05:41] LABS: Anion Gap 20.2 (5-19); Blood Urea Nitrogen 62 mg/dL (8-23); Calcium 9.5 mg/dL (8.5-10.5); Carbon Dioxide 22 mmol/L (22-29); Chloride 87 mmol/L (98-107); Glomerular Filtration Rate 11.5 mL/min (90-130); Glucose 174 mg/dL (65-115); Osmolality Calculated 278 mOsm/kg (285-295); Potassium 6.2 mmol/L (3.5-5.1); Sodium 123 mmol/L (136-145)
[2022-03-17] MEDS: metOLazone 5 MG Tablet 10 MG PO (06:23)
[2022-03-17] MEDS: ALPRAZolam 0.5 mg Tablet 0.25 MG PO ×2 (06:24→18:46)
--- NOTE | 2022-03-17 08:31 | PC.NURSE ---
Dr. Bass was notified at 0242 that patient has had about 50cc urine output since placement of catheter; She has been anxious even after xanax and has requested to be transferred to another facility which is her family's wishes as well. Oxygen saturation has remained 95% to 99% whether patient has been on oxygen at 3L nc or on BiPap. Patient would put BiPap on and take it off frequently. She stated she could not tolerate the BiPap for more that about [address] Bass stated that the transfer would be addressed by the day shift doc.
[2022-03-17] MEDS: LORazepam 2 mg/mL INJ 1 mL 0.5 MG IVP (08:34)
[2022-03-17 08:37] LABS: ABG PCO2 39.4 mmHg (35-45); Alveolar-Arterial Oxygen Gradi 4.8 mmHg (5-10); Arterial Blood Gas Hematocrit 36.4 % (37-47); Base Excess ABG -6.4 mmol/L (-2.0-2.0); Blood Gas Operator Identificat AMH; Blood Gas Sample Site Brachial, right; Blood Gas Sample Type Arterial; Carboxyhemoglobin 0.7 %THgb (0.4-20.1); HCO3 ABG 19.5 mmol/L (22-26); HGB O2 Sat 97.8 % (95-100); Ionized Calcium Level - ABG 1.2 mmol/L (1.1-1.4); Methemoglobin 0.7 % (0.4-1.5); Oxygen Saturation ABG 99.2; Potassium Level - ABG 5.5 mmol/L (3.5-5.0); Total Hemoglobin 11.9 g/dL (12-16)
[2022-03-17 08:39] LABS: Oxygen Device CPAP
--- NOTE | 2022-03-17 08:43 | PC.NURSE ---
[facility]med not given pt being transfered to ICU 2 report given to Lakshmi MARR
[2022-03-17] MEDS: FUROsemide 100 MG in sodium chloride 0.9% 40 ML IV ×2 (10:14→18:46)
[2022-03-17] MEDS: dextrose 50% syringe 50 mL IVP (10:17)
[2022-03-17] MEDS: insulin regular-human 10 UNIT in SYRINGE 1 EACH IVP (10:18)
[2022-03-17] MEDS: amiodarone 200 mg Tablet 400 MG PO (10:19)
[2022-03-17 10:37] LABS: Glucose Point of Care 191 mg/dL (70-110)
--- NOTE | 2022-03-17 10:37 | PM.CONSULT ---
Providers/Reason For Consult Consulting Physician/Specialty*: Marylou Stephenson DO, telenephrology Reason for Consult*: Acute kidney injury Requesting Physician: Fernando Bass MD Attending Physician: Fernando Bass MD Primary Care Provider: Lois Sorto History of Present Illness History of Present Illness Amber White is a 67 year old female admitted with decompensated heart failure. Currently on BiPAP. daughter in law at bedside. Was taking entresto, spironolactone, Kcl and furosemide as outpatient. Review of Systems General: Reports: ROS unobtainable due to medical condition Medications/Allergies Home Medications Medication Instructions Recorded Confirmed Last Taken Type levocetirizine 5 mg tablet 5 mg PO DAILY 04/15/19 03/16/22 08/09/20 08:00 History ascorbic acid (vitamin C) 500 mg 500 mg PO DAILY 08/09/20 03/16/22 08/09/20 08:00 History tablet (Vitamin C) aspirin 81 mg chewable tablet 81 mg PO DAILY 08/09/20 03/16/22 08/09/20 08:00 History magnesium oxide 250 mg PO DAILY 08/09/20 03/16/22 08/09/20 08:00 History multivitamin 1 tab PO DAILY 08/09/20 03/16/22 08/09/20 08:00 History spironolactone 25 mg tablet 25 mg PO DAILY 08/09/20 03/16/22 08/09/20 08:00 History albuterol sulfate 2.5 mg/3 mL 2.5 mg inhalation Q6H PRN 08/16/20 03/16/22 Unknown History (0.083 %) solution for nebulization Shortness Of Breath albuterol sulfate 90 mcg/actuation 1 - 2 puff inhalation QID PRN 08/16/20 03/16/22 Unknown History aerosol inhaler (Ventolin HFA) Shortness Of Breath nitroglycerin 0.4 mg sublingual 0.4 mg sublingual Q5M PRN Chest 08/16/20 03/16/22 Unknown History tablet (Nitrostat) Pain alprazolam 0.25 mg tablet (Xanax) 0.125 mg PO BID PRN anxiety #10 09/21/20 03/16/22 Unknown Rx tabs gabapentin 300 mg capsule 300 mg PO TID 09/21/20 03/16/22 Unknown History metoprolol succinate 25 mg 25 mg PO DAILY 09/21/20 03/16/22 Unknown History tablet,extended release 24 hr rosuvastatin 40 mg tablet 40 mg PO DAILY 09/21/20 03/16/22 Unknown History sacubitril 24 mg-valsartan 26 mg 1 tab PO BID 09/21/20 03/16/22 Unknown History tablet prednisone 20 mg tablet See Rx Instructions PO .COMPLEX 11/07/20 03/16/22 Unknown Rx PRN joint pain flare #30 tabs amiodarone 200 mg tablet 400 mg PO DAILY 02/22/21 03/16/22 Unknown History montelukast 10 mg tablet 10 mg PO DAILY 08/24/21 03/16/22 Unknown History potassium chloride 10 mEq 10 meq PO DAILY #90 tabs 08/24/21 03/16/22 Unknown Rx tablet,extended release umeclidinium 62.5 mcg/actuation 1 inh inhalation DAILY 08/24/21 03/16/22 Unknown History blister powder for inhalation (Incruse Ellipta) apixaban 5 mg tablet 5 mg PO BID #180 tabs 10/11/21 03/16/22 Unknown Rx allopurinol 300 mg tablet 300 mg PO DAILY 03/16/22 03/16/22 Unknown History amoxicillin 875 mg-potassium 1 tab PO BID 03/16/22 03/16/22 Unknown History clavulanate 125 mg tablet azithromycin 250 mg tablet 250 mg PO DAILY 03/16/22 03/16/22 Unknown History cyclobenzaprine 5 mg tablet 5 mg PO BEDTIME 03/16/22 03/16/22 Unknown History furosemide 40 mg tablet 40 mg PO DAILY 03/16/22 03/16/22 Unknown History omega 3-ufj-eok-fish oil 60 mg-90 1 cap PO DAILY 03/16/22 03/16/22 Unknown History mg-500 mg capsule (Fish Oil) Allergies Allergy/AdvReac Type Severity Reaction Status Date / Time povidone-iodine Allergy Mild Unknown Verified 03/16/22 09:16 [From Betadine] Current Medications Generic Name Dose Route Start Last Admin Trade Name Freq PRN Reason Stop Dose Admin Acetaminophen 500 mg 03/16/22 00:12 03/16/22 10:08 Acetaminophen 500 Mg Tablet PO 500 mg Q4H PRN Administration fever Albuterol/Ipratropium 3 ml 03/16/22 00:45 03/16/22 15:13 Ipratropium-Albuterol 3 Ml Neb INHALATION 3 ml Q6H PRN Administration SHORTNESS OF BREATH Allopurinol 300 mg 03/16/22 09:00 03/16/22 09:52 Allopurinol 300 Mg Tablet PO 300 mg DAILY MINGO Administration Alprazolam 0.25 mg 03/16/22 15:36 03/17/22 06:24 Alprazolam 0.5 Mg Tablet PO 0.25 mg BID PRN Administration ANXIETY Amiodarone HCl 400 mg 03/16/22 09:00 03/17/22 10:19 Amiodarone 200 Mg Tablet PO 400 mg DAILY MINGO Administration Amoxicillin/Clavulanate Potassium 1 tab 03/16/22 09:00 03/16/22 17:06 Amoxicillin-Clav 875-125 Mg Tablet PO 1 tab BID MINGO Administration Protocol Apixaban 5 mg 03/16/22 09:00 03/17/22 08:43 Apixaban 5 Mg Tablet PO Not Given BID MINGO Aspirin 81 mg 03/16/22 09:00 03/16/22 09:52 Aspirin 81 Mg Chew Tablet PO 81 mg DAILY MINGO Administration Atorvastatin Calcium 80 mg 03/16/22 09:00 03/16/22 09:53 Atorvastatin 40 Mg Tablet PO 80 mg DAILY MINGO Administration Furosemide 100 mg/ Sodium 50 mls @ 0 mls/hr 03/17/22 08:15 03/17/22 10:14 Chloride IV 10 mg/hr .Q0M MINGO 5 mls/hr Administration Protocol Per Protocol Lorazepam 0.5 mg 03/17/22 08:14 03/17/22 08:34 Lorazepam 2 Mg/Ml Inj 1 Ml IVP 0.5 mg Q4H PRN Administration ANXIETY Metolazone 10 mg 03/17/22 06:00 03/17/22 06:23 Metolazone 5 Mg Tablet PO 10 mg DAILY MINGO Administration Potassium Chloride 10 meq 03/16/22 09:00 03/16/22 09:54 Potassium Chloride Er 10 Meq Tablet PO 10 meq DAILY MINGO Administration Senna/Docusate Sodium 1 tab 03/16/22 09:00 03/16/22 09:53 Sennosides-Docusate Tablet PO 1 tab DAILY MINGO Administration PFSH Acute PFSH: Medical History AICD discharge AICD discharge Arthritis Asthma Atherosclerotic heart disease of [place] coronary artery with other forms of angina pectoris Cardiac cath in April 2019 revealed No significant disease noted in the Left Main, LAD, Circumflex, or RCA coronary arteries. The right coronary artery was extensively stented with the patent stents. LVEDP was 13 mmHg. LV gram was not performed because of theabnormal kidney function Atherosclerotic heart disease of [place]wi[place] coronary artery with unstable angina pectoris Back pain Cardiomyopathy Chronic episodic atrial fibrillation Pt has massive GI bleed and is not wanting to take oral anticoagulant Combined systolic and diastolic heart failure Ejection fraction 30%, grade 1/4 diastolic dysfunction COPD (chronic obstructive pulmonary disease) Coronary artery disease Degenerative joint disease (DJD) of lumbar spine Depression Dyslipidemia Fall Gout Gout, arthritis Gout, arthritis H/O coronary angiogram Showed patent stented segment of RCA with diffuse disease in other vessels High risk medication use Immunization counseling Ischemic cardiomyopathy with implantable cardioverter-defibrillator (ICD) Mixed hyperlipidemia Neuropathy Osteoarthritis Oxygen dependent Sleep apnea uses Bipap at night with 2 L o2 Sleep apnea syndrome Sleep apnea with mood disorder Smoker Smoking Tendinopathy of rotator cuff Ventricular tachycardia Surgical History AICD (automatic cardioverter/defibrillator) present ICD placement in 2012 with generator change by Dr. Boucher on 05/21/2018 History of appendectomy History of tubal ligation Hx of tonsillectomy Family History Father Hypertension CAD (coronary artery disease) Mother Diabetes CAD (coronary artery disease) Cancer Lung disease Brother No problems noted. Sister Cancer Dementia Diabetes Family/Other CAD (coronary artery disease) Cancer Diabetes Father No problems noted. Grandmother CAD (coronary artery disease) Cancer Lung disease Grandfather CAD (coronary artery disease) Other Stroke Denies family history of Rheumatoid arthritis Lupus Clotting disorder Chronic kidney disease (CKD) Suicide Anesthesia complication Bleeding disorder Social History Smoking and tobacco status: current every day smoker cigarettes Alcohol intake: never Lives independently: Yes Marital status: / Vitals/I&O/Wt Last Vital Signs Temp 97.4 F L 03/17/22 08:15 Pulse 69 03/17/22 08:15 Resp 18 03/17/22 08:15 BP 96/67 03/17/22 08:15 Pulse Ox 97 03/17/22 08:15 O2 Del Method 03/17/22 08:00 O2 Flow Rate 3 03/16/22 19:40 FiO2 30 03/17/22 08:13 03/16/22 03/17/22 03/17/22 22:59 06:59 14:59 Intake Total 360 / 1200 810 / 2010 120 / 120 Output Total 0 / 400 Balance 360 / 800 810 / 1610 120 / 120 Weight last 48 hrs Weight 116.573 kg Physical Exam Const: GENERAL APPEARANCE: ill appearing OTHER: on Bipap Resp: AUSCULTATION: diminished lung sounds Cardio: COMMON NORMALS: regular rhythm RHYTHM: regular rhythm Extremity: NARRATIVE EXTREMITY EXAM: nonpitting edema Urinary Catheter Management: Yu: Cath Placed During This Visit: yes Reason for Continuing Indwelling Catheter: Acute Urinary Retention or Obstruction Urinary Catheter Date of Insertion: 03/16/22 Urinary Catheter Time of Insertion: 20:45 Data 03/17/22 04:42 03/17/22 04:41 CXR: Radiologist's impression: Stable cardiac enlargement, bilateral pleural effusions and infrahilar opacities suggesting pulmonary edema. Infection is not excluded. There is no change since yesterday. Echo: Radiologist's impression: 2020 - Diffuse hypokinesis of the left ventricle with almost akinetic apex.? LV ejection fraction around 35%(visual) ?Mildly increased left atrial size. ?Thickened aortic and mitral valves. ?Mild-moderate mitral valve regurgitation. ?There is no pericardial effusion. ?There are no intracardiac masses. ?ICD/pacemaker wire in the right atrium and right ventricle ABG Interpretation 1: 03/17/22 08:26 ABG pH 7.30 L ABG pCO2 39.4 ABG pO2 130.0 H ABG HCO3 19.5 L ABG O2 Saturation 99.2 ABG Base Excess -6.4 L My Interpretation: combination primary metabolic and respiratory acidosis A&P Assessment and plan (1) Acute kidney injury: seen via telemedicine with assistance of RN at bedside Plan 1. Acute kidney injury, oliguric, decompensated heart failure. urine output appears to be increasing on lasix gtt 2. Hyperkalemia 3. Hypervolemic hyponatremia 4. Chronic kidney disease: baseline Cr 1.5 - 1.6 mg/dL Recommend: agree with furosemide infusion, currently on 10 mg/hr with plan to increase to 40 mg/hr. Urinalysis, urine sodium, renal ultrasound. Echocardiogram I discussed possible need for dialysis with patient and [id number]. Repeat labs this afternoon Consult Attestations Medical Necessity Statement: critically ill in ICU Time Spent in Patient Care: 16 - 35 minutes Coding Level of Care Code Acute Student Services Dean for Miguelina Lynch Diagnoses Acute kidney injury N17.9
--- NOTE | 2022-03-17 10:47 | USCV_ITS ---
Transthoracic Echo Amber White Age: 67 Gender: F : 1955 Exam Date: 03/17/2022 17:55 Ordering Phys: Marylou Stephenson DO Technologist: MANISH [place] [facility] [place]ication: SOB BP: 91 / 55 HR: Rhythm: Other Technical Quality: MEASUREMENTS (Male / Female) Normal Values 2D ECHO LV Diastolic Diameter PLAX 7.9 cm 4.2 - 5.9 / 3.9 - 5.3 cm LV Systolic Diameter PLAX 7.2 cm IVS Diastolic Thickness 1.1 cm 0.6 - 1.0 / 0.6 - 0.9 cm IVS Systolic Thickness 0.9 cm LVPW Diastolic Thickness 1.1 cm 0.6 - 1.0 / 0.6 - 0.9 cm LVPW Systolic Thickness 1.1 cm LVOT Diameter 1.9 cm LV Ejection Fraction 2D Teich 18.5 % LV Ejection Fraction MOD 2C 20.7 % LV Ejection Fraction 2C AL 20.6 % LA Diameter 4.4 cm IVC Diameter 3.2 cm M-MODE Aortic Annulus Diameter 2.7 cm LA Ao Ratio MM 1.6 MV E Point Septal Separation 2.0 cm DOPPLER AV Peak Velocity 101.0 cm/s LVOT Peak Velocity 83.0 cm/s AV Area Cont Eq vti 2.0 cm squared AV Area Cont Eq pk 2.4 cm squared MV Area PHT 5.0 cm squared Mitral E to A Ratio 1.6 MV E' Velocity 77.0 cm/s Mitral E to MV E' Ratio 19.8 Mitral E to LV E' Lateral Ratio 15.2 Mitral E to LV E' Septal Ratio 28.3 TR Peak Velocity 302.0 cm/s TR Peak Gradient 36.5 mmHg TV Peak E Velocity 80.0 cm/s FINDINGS Left Ventricle Left ventricle is severely dilated. LV systolic function is severely reduced with EF of 15 to 20%. Severe global hypokinesis. Right Ventricle Normal in size and function Right Atrium Severely dilated Left Atrium Severely dilated Mitral Valve Structurally normal mitral valve. Moderate mitral regurgitation Aortic Valve Grossly normal Tricuspid Valve Mild tricuspid regurgitation. RVSP is 35 to 40 mmHg. This is consistent with mild pulmonary hypertension Pulmonic Valve Not well visualized Pericardium Normal Aorta Normal in size IVC Dilated CONCLUSIONS Left ventricle is severely dilated. Left ventricular systolic pressure is severely reduced with EF of 15 to 20%. Severe biatrial dilation Moderate mitral regurgitation Mild tricuspid regurgitation Mild pulmonary hypertension Compared to prior echocardiogram from 08/16/2020, LV systolic function appears to have decreased further. Ba Davis MD (Electronically Signed) Final Date: 18 March 2022 11:28 S
--- NOTE | 2022-03-17 10:47 | PC.NURSE ---
Patient arrived to room at 0950 from med/surg and was connected to the vital sign monitor. Patient was placed on the BiPAP and full physical assessment was performed. Lasix drip initiated per order. Administration of oral medications was attempted. Patient was able to swallow amio pills but did not tolerated removal of BiPAP to take any further medications. Dr. Bass notified and approved.
--- NOTE | 2022-03-17 10:54 | USR_ITS ---
PROCEDURE INFORMATION: Exam: US Retroperitoneal; Complete; Kidneys and Bladder Exam date and time: 03/17/2022 6:47 PM Age: 67 years old Clinical indication: Other: Pardeep TECHNIQUE: Imaging protocol: Real-time ultrasound of the retroperitoneum with image documentation. Complete exam focused on the kidneys and bladder. COMPARISON: US renal BI* [id number] 01/22/2019 6:36 AM FINDINGS: Right kidney: 2.6 x 2.2 x 2.0 cm simple cyst upper pole right kidney. 9.7 x 5.6 x 3.4 cm right kidney. 0.8 cm right renal cortex. Left kidney: 2.8 x 2.4 x 2.8 cm simple cyst in the interpolar left kidney between the middle pole and upper pole. 9.7 x 5.7 x 5.2 cm left kidney with 1.5 cm left renal cortex. Urinary bladder: Yu balloon within collapsed urinary bladder. US/US renal BI* [id number] IMPRESSION: 1. 2.6 x 2.2 x 2.0 cm simple cyst upper pole right kidney. 2. 2.8 x 2.4 x 2.8 cm simple cyst in the interpolar left kidney between the middle pole and upper pole. 3. Yu balloon within collapsed urinary bladder. 4. No hydronephrosis or medical renal disease.
[2022-03-17 11:59] LABS: Add Urine Culture? Yes; Bacteria Urine TRACE /hpf; Bilirubin Urine Neg (Negative); Blood Urine 3+ (Negative); Glucose Urine UA Norm (Normal); Hyaline Casts Urine 0-4 /lpf; Ketones Urine Negative (Negative); Leukocyte Esterase Urine Negative (Negative); Mucus Urine TRACE /hpf; Nitrate Urine Negative (Negative); Protein Urine Neg (Negative); RBC Urine 15-25 /hpf (0-2); Urine Appearance SL Hazy (CLEAR); Urine Color Colorless (Yellow); Urobilinogen Urine Norm (Negative); pH Urine 5 (5-7)
--- NOTE | 2022-03-17 12:03 | PC.NURSE ---
At 1145 Dr. Bass was notified of patient's low BP. Orders to turn Lasix drip down to 5mg/hr and start Levophed drip.
[2022-03-17 12:08] LABS: Urine Random Sodium 68 mmol/L
[2022-03-17 12:15] LABS: Creatinine Urine, Random 21 mg/dL (28-217)
[2022-03-17 14:57] LABS: Anion Gap 17.3 (5-19); Blood Urea Nitrogen 73 mg/dL (8-23); Calcium 9.2 mg/dL (8.5-10.5); Carbon Dioxide 24 mmol/L (22-29); Chloride 87 mmol/L (98-107); Glomerular Filtration Rate 11.5 mL/min (90-130); Glucose 128 mg/dL (65-115); Osmolality Calculated 279 mOsm/kg (285-295); Potassium 5.3 mmol/L (3.5-5.1); Sodium 123 mmol/L (136-145)
--- NOTE | 2022-03-17 15:10 | PC.NURSE ---
1330 Dr. Bass at bedside for central line insertion. Orders to increase Lasix drip to 10 mg/hr. 1505 Reviewed labs, medications and UOP with Dr. Bass. Orders to DC kayexalate and keep Lasix drip at 10mg/hr.
[2022-03-17] MEDS: amoxicillin-clav 500-125 mg Tablet 1 TAB PO (17:07)
--- NOTE | 2022-03-17 17:33 | PM.PN ---
Subjective Subjective: Patient was seen and examined this morning, she was complaining of significant shortness of breath difficulty breathing, a.m. BMP had shown hyperkalemia, worsening of BUN and serum creatinine, hyponatremia. Patient was transferred to ICU and was placed on Lasix drip, she also received hyperkalemia cocktail, has responded well to Lasix drip so far urine output had been 1500 cc, repeat BMP has shown improvement of serum potassium, a.m. ABG was done: Result appreciated, nephrology on board. Right femoral central line was placed. Medications: Medication Review Details: Generic Name Dose Route Start Last Admin Trade Name Freq PRN Reason Stop Dose Admin Acetaminophen 500 mg 03/16/22 00:12 03/16/22 10:08 Acetaminophen 50 0 Mg Tablet PO 500 mg Q4H PRN Administration fever Albuterol/Ipratrop ium 3 ml 03/16/22 00:45 03/16/22 15:13 Ipratropium-Albu terol 3 Ml Neb INHALATION 3 ml Q6H PRN Administration SHORTNESS OF AUREA TH Allopurinol 300 mg 03/16/22 09:00 03/17/22 10:43 Allopurinol 300 Mg Tablet PO Not Given DAILY MINGO Alprazolam 0.25 mg 03/16/22 15:36 03/17/22 06:24 Alprazolam 0.5 M g Tablet PO 0.25 mg BID PRN Administration ANXIETY Amiodarone HCl 400 mg 03/16/22 09:00 03/17/22 10:19 Amiodarone 200 M g Tablet PO 400 mg DAILY MINGO Administration Amoxicillin/Clavul anate Potassium 1 tab 03/17/22 18:00 03/17/22 17:07 Amoxicillin-Clav 500-125 Mg Tablet PO 1 tab BID MINGO Administration Protocol Apixaban 5 mg 03/16/22 09:00 03/17/22 08:43 Apixaban 5 Mg Ta blet PO Not Given BID MINGO Aspirin 81 mg 03/16/22 09:00 03/17/22 10:44 Aspirin 81 Mg Ch ew Tablet PO Not Given DAILY MINGO Atorvastatin Calci um 80 mg 03/16/22 09:00 03/17/22 10:44 Atorvastatin 40 Mg Tablet PO Not Given DAILY MINGO Furosemide 100 mg/ Sodium 50 mls @ 0 mls/hr 03/17/22 08:15 03/17/22 13:30 Chloride IV 10 mg/hr .Q0M MINGO 5 mls/hr Titration Protocol Per Protocol Lorazepam 0.5 mg 03/17/22 08:14 03/17/22 08:34 Lorazepam 2 Mg/M l Inj 1 Ml IVP 0.5 mg Q4H PRN Administration ANXIETY Metolazone 10 mg 03/17/22 06:00 03/17/22 06:23 Metolazone 5 Mg Tablet PO 10 mg DAILY MINGO Administration Senna/Docusate Sod ium 1 tab 03/16/22 09:00 03/17/22 10:44 Sennosides-Docus ate Tablet PO Not Given DAILY MINGO Vitals/I&O/Wt Last Vital Signs Temp 97.8 F 03/17/22 10:00 Pulse 70 03/17/22 16:45 Resp 24 H 03/17/22 16:45 BP 91/55 03/17/22 16:45 Pulse Ox 99 03/17/22 16:45 O2 Del Method 03/17/22 08:00 O2 Flow Rate 3 03/16/22 19:40 FiO2 30 03/17/22 16:15 03/17/22 03/17/22 03/17/22 06:59 14:59 22:59 Intake Total 810 / 2010 131.958 / 131.958 200 / 331.958 Output Total 0 / 400 700 / 700 800 / 1500 Balance 810 / 1610 -568.042 / -568.042 -600 / -1168.042 Weight last 48 hrs Weight 116.573 kg Physical Exam Resp: OTHER: Diminished air entry bilaterally Cardio: COMMON NORMALS: regular rate, regular rhythm, S1 normal heart sound present, S2 normal heart sound present, No gallops present (Cardio), No murmurs present (Cardio), No rub (Cardio) and Peripheral pulses 2+ throughout RATE: regular rate RHYTHM: regular rhythm HEART SOUNDS: S1 normal heart sound present and S2 normal heart sound present PERIPHERAL PULSES: Peripheral pulses 2+ throughout GI: COMMON NORMALS: Normal to inspection, nondistended, normoactive bowel sounds present, Soft to palpation, non-tender, No hepatosplenomegaly present and no masses AUSCULTATION: Yes normoactive bowel sounds PALPATION: Yes Soft to palpation and Yes No hepatosplenomegaly present RECTAL EXAM: deferred Extremity: COMMON NORMALS: no clubbing, cyanosis or edema and no pedal edema Urinary Catheter Management: Yu: Cath Placed During This Visit: yes Reason for Continuing Indwelling Catheter: Acute Urinary Retention or Obstruction Urinary Catheter Date of Insertion: 03/16/22 Urinary Catheter Time of Insertion: 20:45 Data 03/17/22 04:42 03/17/22 13:40 A&P Assessment and plan (1) CHF exacerbation: (2) ICD (implantable cardioverter-defibrillator), dual, in situ: (3) Chronic episodic atrial fibrillation: (4) Hyperkalemia: Plan 65 year old female who has history of chronic atrial fibrillation, ischemic cardiomyopathy PCI to right coronary mixed systolic diastolic congestive heart failure status post AICD placement(EF 30%) was brought in with chief complaint of worsening shortness of breath as well as cough going on for the last few days extremely bad yesterday, she was being treated as an outpatient by her PCP with azithromycin Augmentin, and prednisone for possible bronchitis. Currently she is being managed for Assessment Decompensated heart failure: Impending cardiogenic shock Worsening YUDI on CKD: Baseline serum creatinine appears to be around 1.5-1.6: Possibly secondary CRS 2/2 decompensated heart failure History of chronic atrial fibrillation History of coronary artery disease Bronchitis Tendinopathy of rotator cuff: History of gout Plan: X-ray chest: Is showing diffuse pulmonary vascular congestion, elevated proBNP: [id number], Currently she is on Lasix drip running at 10 mg/hr, as well as metolazone 10 mg p.o. daily Monitor intake output charting Monitor electrolytes K>4 ,MG>2 Monitor daily weight Avoid nephrotoxic's Telemetry monitoring Continue amiodarone Continue aspirin Eliquis Continue Augmentin Nephrology on board CODE STATUS: Full code DVT prophylaxis: Not needed on Eliquis Attestations Medical Necessity Statement*: Patient is to be in hospital management of decompensated heart failure, worsening YUDI on CKD. Time Spent in Patient Care: Greater than 35 minutes (>than 50% of time spent in counselling and/or direct pt care on unit). Critical Care Time: The high probability of a clinically significant, sudden or life threatening deterioration of the patient's [] system(s) required my full and direct attention, intervention and personal management. The critical care time is as shown. This time is in addition to time spent performing any reported procedures but includes the following: [x] Data and vital sign review and interpretation [x] Patient assessment, examination and intervention [x] Documentation [x] Medication orders and management Critical Care Time (min): 90 Coding Level of Care Code Acute Reliability Specialist for Chg Fwd Diagnoses CHF exacerbation I50.9 ICD (implantable cardioverter-defibrillator), dual, in situ Z95.810 Chronic episodic atrial fibrillation I48.20 Hyperkalemia E87.5
--- NOTE | 2022-03-17 17:42 | PM.ACPR ---
Acute Procedures Central Line Placement: Right Femoral: Time out performed: Yes Patient placed on monitor/pulse ox: Yes MD prep: mask, gown and gloves Central line prep: Chlorhexidine scrub and sterile drapes applied Local anesthesia used: lidocaine 1% Amount of anesthesia used (ml): 10 Ultrasound used for placement: Yes Central line lumen inserted: triple Post procedure: sutured in place, good blood return, all ports aspirated, flushed, capped and sterile dressing applied Patient tolerated procedure: well and no complications Complications: none
--- NOTE | 2022-03-17 22:15 | PC.NURSE ---
spoke with MD Kali around 2039. Per MD increase lasix gtt to 15mg/hr and start levo for maps of less than 65
[2022-03-18] VITALS (48 sets, daily range): BP systolic 83–123; BP diastolic 53–82; PULSE 69–73; RESP 14–24; TEMP 36.6; O2SAT 94–100
[2022-03-18] MEDS: acetaminophen 500 mg Tablet PO (02:13)
[2022-03-18 04:56] LABS: Basophils % 0.1 %; Hematocrit 33.2 % (37.0-47.0); Hemoglobin 11.1 g/dL (11.5-15.3); Lymphocytes # 1.4 10^3/uL (0.8-4.8); Lymphocytes % 14.3 %; Mean Corpuscular HGB Conc 33.4 g/dL (30.0-36.0); Mean Corpuscular Hemoglobin 32.6 pg (28.0-34.0); Mean Corpuscular Volume 97.6 fl (81-99); Mean Platelet Volume 11.3 fL (7.4-10.4); Monocytes # 0.6 10^3/uL (0.2-0.9); Monocytes % 5.9 %; Neutrophils # 7.88 10^3/uL (1.8-7.7); Nucleated Red Blood Cells % 0 %; Platelet Count 148 10^3/cmm (130-400); Red Cell Distribution Width 14.5 % (12.1-15.1)
--- NOTE | 2022-03-18 05:00 | XRR_ITS ---
PROCEDURE INFORMATION: Exam: XR Chest Exam date and time: 03/18/2022 4:47 AM Age: 67 years old Clinical indication: Dyspnea and shortness of breath; Patient HX: Icu patient, ; additional info: SOB, pleural effusion TECHNIQUE: Imaging protocol: Radiologic exam of the chest. Views: 1 view. COMPARISON: CR (CHEST, ) 03/16/2022 10:40 PM FINDINGS: Tubes, catheters and devices: Cardiac rhythm maintenance device is in place. Lungs: Bibasilar atelectasis. Pulmonary vascular congestion. Pleural spaces: Small bilateral pleural effusions. No pneumothorax. Heart/Mediastinum: Cardiomegaly. Bones/joints: Unremarkable. XR/XR chest 1V portable [id number] IMPRESSION: Stable pulmonary vascular congestion with small bilateral pleural effusions and bibasilar atelectasis.
[2022-03-18 05:13] LABS: Anion Gap 20.7 (5-19); Blood Urea Nitrogen 79 mg/dL (8-23); Calcium 9.1 mg/dL (8.5-10.5); Carbon Dioxide 25 mmol/L (22-29); Chloride 80 mmol/L (98-107); Glomerular Filtration Rate 12.2 mL/min (90-130); Glucose 141 mg/dL (65-115); Osmolality Calculated 278 mOsm/kg (285-295); Potassium 4.7 mmol/L (3.5-5.1); Sodium 121 mmol/L (136-145)
--- NOTE | 2022-03-18 07:45 | PC.SOCIAL ---
IMM Update Pg 2 of IMM not updated as patient is currently in observation status.
[2022-03-18] MEDS: ipratropium-albuterol 3 mL Neb INHALATION (08:23)
--- NOTE | 2022-03-18 08:26 | PM.PN ---
Subjective Subjective: excellent uop. sob, weak, ;lethargic. Medications: Reviewed: Yes Medication Review Details: Current Medications Acetaminophen (Acetaminophen 500 Mg Tablet) 500 mg PO Q4H PRN PRN Reason: fever Last Admin: 03/18/22 02:13 Dose: 500 mg Albuterol/Ipratropium (Ipratropium-Albuterol 3 Ml Neb) 3 ml INHALATION Q6H PRN PRN Reason: SHORTNESS OF BREATH Last Admin: 03/18/22 08:23 Dose: 3 ml Allopurinol (Allopurinol 300 Mg Tablet) 300 mg PO DAILY [facility] Last Admin: 03/17/22 10:43 Dose: Not Given Alprazolam (Alprazolam 0.5 Mg Tablet) 0.25 mg PO BID PRN PRN Reason: ANXIETY Last Admin: 03/17/22 18:46 Dose: 0.25 mg Amiodarone HCl (Amiodarone 200 Mg Tablet) 400 mg PO DAILY [facility] Last Admin: 03/17/22 10:19 Dose: 400 mg Amoxicillin/Clavulanate Potassium (Amoxicillin-Clav 500-125 Mg Tablet) 1 tab PO BID [facility]; Protocol Last Admin: 03/17/22 17:07 Dose: 1 tab Apixaban (Apixaban 5 Mg Tablet) 5 mg PO BID [facility] Last Admin: 03/17/22 08:43 Dose: Not Given Aspirin (Aspirin 81 Mg Chew Tablet) 81 mg PO DAILY [facility] Last Admin: 03/17/22 10:44 Dose: Not Given Atorvastatin Calcium (Atorvastatin 40 Mg Tablet) 80 mg PO DAILY [facility] Last Admin: 03/17/22 10:44 Dose: Not Given Diclofenac Sodium (Diclofenac 1% Topical Gel 100 Gm) 1 applic TOPICAL QID PRN PRN Reason: pain Furosemide 100 mg/ Sodium (Chloride) 50 mls @ 0 mls/hr IV .Q0M [facility]; Protocol Last Titration: 03/18/22 02:14 Dose: 15 mg/hr, 7.5 mls/hr Norepinephrine Bitartrate 4 mg (/ Dextrose) 254 mls @ 0 mls/hr IV .Q0M MINGO; Protocol Lorazepam (Lorazepam 2 Mg/Ml Inj 1 Ml) 0.5 mg IVP Q4H PRN PRN Reason: ANXIETY Last Admin: 03/17/22 08:34 Dose: 0.5 mg Metolazone (Metolazone 5 Mg Tablet) 10 mg PO DAILY [facility] Last Admin: 03/17/22 06:23 Dose: 10 mg Morphine Sulfate (Morphine Ir 15 Mg Tablet) 15 mg PO Q6H PRN PRN Reason: MODERATE PAIN Ondansetron HCl (Ondansetron 2 Mg/Ml Sdv 2 Ml) 4 mg IVP Q6H PRN PRN Reason: NAUSEA AND VOMITING Senna/Docusate Sodium (Sennosides-Docusate Tablet) 1 tab PO DAILY [facility] Last Admin: 03/17/22 10:44 Dose: Not Given Vitals/I&O/Wt Last Vital Signs Temp 97.8 F 03/18/22 06:00 Pulse 69 03/18/22 06:00 Resp 17 03/18/22 06:00 BP 106/71 03/18/22 06:00 Pulse Ox 97 03/18/22 06:00 O2 Del Method 03/18/22 06:00 O2 Flow Rate 3 03/18/22 06:00 FiO2 30 03/17/22 19:47 03/17/22 03/18/22 03/18/22 22:59 06:59 14:59 Intake Total 717.766 / 849.724 960 / 1809.724 Output Total 1900 / 2600 1400 / 4000 Balance -1182.234 / -1750.276 -440 / -2190.276 Physical Exam Narrative: weak, ill appearing, sob vs noted heent- nc/at,eomi, anicteric neck supple lungs dull bases and crackles heart reg abd soft, nt, nd, + bs ext b/l edema neuro- lethargic,awakens, oriented x 3 Urinary Catheter Management: Yu: Cath Placed During This Visit: yes Reason for Continuing Indwelling Catheter: Accurate Measurement of Urinary Output in Critically Ill Patients Urinary Catheter Date of Insertion: 03/16/22 Urinary Catheter Time of Insertion: 20:45 Data 03/18/22 03:59 03/18/22 03:59 A&P Assessment and plan (1) Acute kidney injury: seen via telemedicine with assistance of RN at bedside Plan 1. Acute kidney injury, oliguric, decompensated heart failure. urine output appears to be increasing on lasix gtt- consider dec dose in half 2. Hyperkalemia improved 3. Hypervolemic hyponatremia- add tolvaptan if possible -fluid restrict check chem 7 bid 4. Chronic kidney disease: baseline Cr 1.5 - 1.6 mg/dL small kidneys on renal us meds reviewed time spent 30 minutes Attestations Medical Necessity Statement*: anish, hyponatremia, chf exacerbtion Time Spent in Patient Care: 16 - 35 minutes (>than 50% of time spent in counselling and/or direct pt care on unit). Coding Level of Care Code Acute Sales Force Developer for Miguelina Lynch Diagnoses Acute kidney injury N17.9
[2022-03-18] MEDS: atorvastatin 40 mg Tablet 80 MG PO (08:28)
[2022-03-18] MEDS: aspirin 81 mg Chew Tablet PO (08:28)
[2022-03-18] MEDS: allopurinol 300 mg Tablet PO (08:28)
[2022-03-18] MEDS: amiodarone 200 mg Tablet 400 MG PO (08:28)
[2022-03-18] MEDS: amoxicillin-clav 500-125 mg Tablet 1 TAB PO ×2 (08:28→17:11)
[2022-03-18] MEDS: metOLazone 5 MG Tablet 10 MG PO (08:28)
[2022-03-18] MEDS: sennosides-docusate Tablet 1 TAB PO (08:29)
--- NOTE | 2022-03-18 08:46 | PC.NURSE ---
Dr. Bass at bedside, gave v.o. to turn lasix drip down to 10 mg/hr
[2022-03-18] MEDS: FUROsemide 100 MG in sodium chloride 0.9% 40 ML IV ×2 (08:50→21:17)
--- NOTE | 2022-03-18 08:54 | ECG_ITS ---
[facility] Test Date: 2022-03-18 Pat Name: Amber White Department: Room: [facility] Gender: Female Orthopedic Coder: : 1955 Requested By: Fernando Bass Order Number: [id number] Anabel MD: Ba Davis M.D. Measurements Intervals [place] Rate: 69 P: 145 IL: 255 QRS: -65 QRSD: 222 T: 113 QT: 497 QTc: 534 Interpretive Statements ELECTRONIC ATRIAL PACEMAKER LEFT AXIS DEVIATION [QRS AXIS < -30] INTRAVENTRICULAR CONDUCTION DELAY [130+ ms QRS DURATION] Compared to ECG 03/15/2022 23:48:43 Left-axis deviation now present Myocardial infarct finding no longer present Electronically Signed On 03-18-2022 19:57:08 SENIOR NET ENGINEER by Ba Davis M.D. [id number]
--- NOTE | 2022-03-18 09:17 | PC.NURSE ---
Patient C/O sudden onset of severe left arm pain and nausea stating my last heart attack felt like this , EKG obtained, Dr. Bass reviewed and gave order for 0.5 mg morphine IVP now and ordered zofran and ativan
[2022-03-18] MEDS: morphine 4 mg/mL SDV 1 mL 0.5 MG IVP ×2 (09:25→10:36)
--- NOTE | 2022-03-18 09:50 | P.CONIM_ITS ---
Providers/Reason For Consult Consulting Physician/Specialty*: Ba Davis MD/Cardiology Reason for Consult*: CHF exacerbation Requesting Physician: Dr Bass Attending Physician: Fernando Bass MD Primary Care Provider: Lois Sorto History of Present Illness History of Present Illness Amber White is a 67 year old female with past medical history of cardiomyopathy, prior PCI to the RCA. Most recent cardiac catheter this year showing patent RCA stents and no significant disease in left coronary system. He also has an ICD in place. Previous echocardiogram showed LV systolic function of 30%. Echo done this admission shows EF of 15 to 20%. She presented to the hospital with worsening shortness of breath. She was volume overloaded. She was put on Lasix drip. Worsening renal function that has stabilized now. She is diuresing well. Today she is complaining of chest discomfort. She was having on and off left shoulder pain as well. Troponins have been trended. Today trended from 32 at baseline at 231 at 6 hours. Medical therapy for NSTEMI started. Review of Systems Const: Reports: chills and fatigue Eyes: Denies: change in vision ENMT: Denies: throat pain Card: Reports: swelling of feet/ankles, dyspnea on exertion and orthopnea Resp: Reports: dyspnea GI: Denies: abdominal pain or coffee ground emesis : Denies: flank pain Musc: Denies: neck pain Skin/Breast: Denies: rash Neuro: Denies: headache(s) Psych: Denies: anxiety Endo: Denies: polyuria Mert/Lymph: Denies: easy bruising All/Imm: Denies: urticaria Medications/Allergies Home Medications Medication Instructions Recorded Confirmed Last Taken Type levocetirizine 5 mg tablet 5 mg PO DAILY 04/15/19 03/16/22 08/09/20 08:00 History ascorbic acid (vitamin C) 500 mg 500 mg PO DAILY 08/09/20 03/16/22 08/09/20 08:00 History tablet (Vitamin C) aspirin 81 mg chewable tablet 81 mg PO DAILY 08/09/20 03/16/22 08/09/20 08:00 History magnesium oxide 250 mg PO DAILY 08/09/20 03/16/22 08/09/20 08:00 History multivitamin 1 tab PO DAILY 08/09/20 03/16/22 08/09/20 08:00 History spironolactone 25 mg tablet 25 mg PO DAILY 08/09/20 03/16/22 08/09/20 08:00 History albuterol sulfate 2.5 mg/3 mL 2.5 mg inhalation Q6H PRN 08/16/20 03/16/22 Unknown History (0.083 %) solution for nebulization Shortness Of Breath albuterol sulfate 90 mcg/actuation 1 - 2 puff inhalation QID PRN 08/16/2006/06 Unknown History aerosol inhaler (Ventolin HFA) Shortness Of Breath nitroglycerin 0.4 mg sublingual 0.4 mg sublingual Q5M PRN Chest 08/16/20 03/16/22 Unknown History tablet (Nitrostat) Pain alprazolam 0.25 mg tablet (Xanax) 0.125 mg PO BID PRN anxiety #10 09/21/20 03/16/22 Unknown Rx tabs gabapentin 300 mg capsule 300 mg PO TID 09/21/20 03/16/22 Unknown History metoprolol succinate 25 mg 25 mg PO DAILY 09/21/20 03/16/22 Unknown History tablet,extended release 24 hr rosuvastatin 40 mg tablet 40 mg PO DAILY 09/21/20 03/16/22 Unknown History sacubitril 24 mg-valsartan 26 mg 1 tab PO BID 09/21/20 03/16/22 Unknown History tablet prednisone 20 mg tablet See Rx Instructions PO .COMPLEX 11/07/20 03/16/22 Unknown Rx PRN joint pain flare #30 tabs amiodarone 200 mg tablet 400 mg PO DAILY 02/22/21 03/16/22 Unknown History montelukast 10 mg tablet 10 mg PO DAILY 08/24/21 03/16/22 Unknown History potassium chloride 10 mEq 10 meq PO DAILY #90 tabs 08/24/21 03/16/22 Unknown Rx tablet,extended release umeclidinium 62.5 mcg/actuation 1 inh inhalation DAILY 08/24/21 03/16/22 Unknown History blister powder for inhalation (Incruse Ellipta) apixaban 5 mg tablet 5 mg PO BID #180 tabs 10/11/21 03/16/22 Unknown Rx allopurinol 300 mg tablet 300 mg PO DAILY 03/16/22 03/16/22 Unknown History amoxicillin 875 mg-potassium 1 tab PO BID 03/16/22 03/16/22 Unknown History clavulanate 125 mg tablet azithromycin 250 mg tablet 250 mg PO DAILY 03/16/22 03/16/22 Unknown History cyclobenzaprine 5 mg tablet 5 mg PO BEDTIME 03/16/22 03/16/22 Unknown History furosemide 40 mg tablet 40 mg PO DAILY 03/16/22 03/16/22 Unknown History omega 0-ths-xut-fish oil 60 mg-90 1 cap PO DAILY 03/16/22 03/16/22 Unknown History mg-500 mg capsule (Fish Oil) Allergies Allergy/AdvReac Type Severity Reaction Status Date / Time povidone-iodine Allergy Mild Unknown Verified 03/16/22 09:16 [From Betadine] Current Medications Generic Name Dose Route Start Last Admin Trade Name Freq PRN Reason Stop Dose Admin Acetaminophen 500 mg 03/16/22 00:12 03/18/22 02:13 Acetaminophen 500 Mg Tablet PO 500 mg Q4H PRN Administration fever Albuterol/Ipratropium 3 ml 03/16/22 00:45 03/18/22 08:23 Ipratropium-Albuterol 3 Ml Neb INHALATION 3 ml Q6H PRN Administration SHORTNESS OF BREATH Allopurinol 300 mg 03/16/22 09:00 03/18/22 08:28 Allopurinol 300 Mg Tablet PO 300 mg DAILY MINGO Administration Alprazolam 0.25 mg 03/16/22 15:36 03/17/22 18:46 Alprazolam 0.5 Mg Tablet PO 0.25 mg BID PRN Administration ANXIETY Amiodarone HCl 400 mg 03/16/22 09:00 03/18/22 08:28 Amiodarone 200 Mg Tablet PO 400 mg DAILY MINGO Administration Amoxicillin/Clavulanate Potassium 1 tab 03/17/22 18:00 03/18/22 08:28 Amoxicillin-Clav 500-125 Mg Tablet PO 1 tab BID MINGO Administration Protocol Apixaban 5 mg 03/16/22 09:00 03/17/22 08:43 Apixaban 5 Mg Tablet PO Not Given BID MINGO Aspirin 81 mg 03/16/22 09:00 03/18/22 08:28 Aspirin 81 Mg Chew Tablet PO 81 mg DAILY MINGO Administration Atorvastatin Calcium 80 mg 03/16/22 09:00 03/18/22 08:28 Atorvastatin 40 Mg Tablet PO 80 mg DAILY MINGO Administration Furosemide 100 mg/ Sodium 50 mls @ 0 mls/hr 03/17/22 08:15 03/18/22 08:50 Chloride IV 10 mg/hr .Q0M MINGO 5 mls/hr Administration Protocol Per Protocol Lorazepam 0.5 mg 03/17/22 08:14 03/17/22 08:34 Lorazepam 2 Mg/Ml Inj 1 Ml IVP 0.5 mg Q4H PRN Administration ANXIETY Senna/Docusate Sodium 1 tab 03/16/22 09:00 03/18/22 08:29 Sennosides-Docusate Tablet PO 1 tab DAILY MINGO Administration PFSH Acute PFSH: Medical History AICD discharge AICD discharge Arthritis Asthma Atherosclerotic heart disease of [place] coronary artery with other forms of angina pectoris Cardiac cath in April 2019 revealed No significant disease noted in the Left Main, LAD, Circumflex, or RCA coronary arteries. The right coronary artery was extensively stented with the patent stents. LVEDP was 13 mmHg. LV gram was not performed because of theabnormal kidney function Atherosclerotic heart disease of [place] coronary artery with unstable angina pectoris Back pain Cardiomyopathy Chronic episodic atrial fibrillation Pt has massive GI bleed and is not wanting to take oral anticoagulant Combined systolic and diastolic heart failure Ejection fraction 30%, grade 1/4 diastolic dysfunction COPD (chronic obstructive pulmonary disease) Coronary artery disease Degenerative joint disease (DJD) of lumbar spine Depression Dyslipidemia Fall Gout Gout, arthritis Gout, arthritis H/O coronary angiogram Showed patent stented segment of RCA with diffuse disease in other vessels High risk medication use Immunization counseling Ischemic cardiomyopathy with implantable cardioverter-defibrillator (ICD) Mixed hyperlipidemia Neuropathy Osteoarthritis Oxygen dependent Sleep apnea uses Bipap at night with 2 L o2 Sleep apnea syndrome Sleep apnea with mood disorder Smoker Smoking Tendinopathy of rotator cuff Ventricular tachycardia Surgical History AICD (automatic cardioverter/defibrillator) present ICD placement in 2012 with generator change by Dr. Boucher on 05/21/2018 History of appendectomy History of tubal ligation Hx of tonsillectomy Family History Father Hypertension CAD (coronary artery disease) Mother Diabetes CAD (coronary artery disease) Cancer Lung disease Brother No problems noted. Sister Cancer Dementia Diabetes Family/Other CAD (coronary artery disease) Cancer Diabetes Father No problems noted. Grandmother CAD (coronary artery disease) Cancer Lung disease Grandfather CAD (coronary artery disease) Other Stroke Denies family history of Rheumatoid arthritis Lupus Clotting disorder Chronic kidney disease (CKD) Suicide Anesthesia complication Bleeding disorder Social History Smoking and tobacco status: current every day smoker cigarettes Alcohol intake: never Lives independently: Yes Marital status: / Vitals/I&O/Wt Last Vital Signs Temp 97.8 F 03/18/22 06:00 Pulse 69 03/18/22 08:29 Resp 16 03/18/22 08:15 BP 108/77 03/18/22 08:00 Pulse Ox 97 03/18/22 08:15 O2 Del Method 03/18/22 08:15 O2 Flow Rate 3 03/18/22 08:15 FiO2 30 03/17/22 19:47 03/17/22 03/18/22 03/18/22 22:59 06:59 14:59 Intake Total 717.766 / 849.724 960 / 1809.724 388.667 / 388.667 Output Total 1900 / 2600 1400 / 4000 Balance -1182.234 / -1750.276 -440 / -2190.276 388.667 / 388.667 Physical Exam Narrative: GENERAL: Patient is drowsy NECK: No jugular vein distension. [] HEENT: No cyanosis. No icterus. No pallor. [] HEART: Regular S1 and S2. LUNGS: Diminished breath sounds ABDOMEN: Soft CENTRAL NERVOUS SYSTEM: Grossly nonfocal. [] EXTREMITIES: Lower extremities with 1+ edema bilaterally. Pulses palpable in the lower extremities, both dorsalis pedis and posterior tibial. [] Urinary Catheter Management: Yu: Cath Placed During This Visit: yes Reason for Continuing Indwelling Catheter: Accurate Measurement of Urinary Output in Critically Ill Patients Urinary Catheter Date of Insertion: 03/16/22 Urinary Catheter Time of Insertion: 20:45 Data 03/18/22 03:59 03/18/22 03:59 Micro: Microbiology 03/17/22 11:35 Urine Culture - Preliminary Urine,Clean Catch A&P Assessment and plan (1) CHF exacerbation: (2) Hyponatremia: (3) Hyperkalemia: (4) ICD (implantable cardioverter-defibrillator), dual, in situ: (5) Troponin level elevated: Plan Patient has presented with symptoms of observation. Echo shows further decrease in LV systolic function. Chest pain is atypical however troponins are elevated. Continue anticoagulation with heparin drip. Patient needs further aggressive diuresis. Continue Lasix drip. Monitor I&O's. Monitor electrolytes. Nephrology on board. Appreciate recs LFTs are elevated. Once she is euvolemic and if renal function stabilizes, can consider further ischemic work-up. At this time main focus will be on CHF exacerbation treatment. Thank you for involving us with care of this patient. We will continue to follow. Please call with questions. Consult Attestations Medical Necessity Statement: Care expected to cross 2 midnights. Coding Level of Care Code Acute Inclusion Internship for Miguelina Lynch Diagnoses CHF exacerbation I50.9 Hyponatremia E87.1 Hyperkalemia E87.5 ICD (implantable cardioverter-defibrillator), dual, in situ Z95.810 Troponin level elevated R77.8
--- NOTE | 2022-03-18 09:58 | PC.NURSE ---
Dr. Davis observed continued c/o of left arm pain now radiating to back, gave v.o. for sl nitro
[2022-03-18 10:03] LABS: Troponin T (5th) Once 52 ng/L (0-10)
--- NOTE | 2022-03-18 10:05 | PC.NURSE ---
Dr. Bass was notified of continued severe left arm pain now radiating to back, t.o. given for second morphine 0.5 mg ivp now and to start nitro drip
--- NOTE | 2022-03-18 10:12 | PC.NURSE ---
Dr. Bass added t.o. for Heparin drip
[2022-03-18] MEDS: heparin drip 25,000 UNIT/500 ML PREMIX 34.97 UNIT IV (10:30)
[2022-03-18] MEDS: nitroglycerin drip 50 MG/250 ML PREMIX IV (10:37)
[2022-03-18] MEDS: morphine IR 15 mg Tablet PO (11:22)
--- NOTE | 2022-03-18 11:32 | ECG_ITS ---
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 Measurements Intervals [place] Rate: 69 P: 99 IA: 269 QRS: -74 QRSD: 223 T: 107 QT: 521 QTc: 561 Interpretive Statements ELECTRONIC ATRIAL PACEMAKER LEFT AXIS DEVIATION [QRS AXIS < -30] INTRAVENTRICULAR CONDUCTION DELAY [130+ ms QRS DURATION] Compared to ECG 03/18/2022 09:04:19 No significant changes Electronically Signed On 03-18-2022 19:56:41 MUSIC DIRECTOR by Ba Davis M.D. [email or web address] [email or web address] [facility].Liquid Light/store/OM/[id number]
[2022-03-18 12:01] LABS: Troponin 5 2HR 72.05 ng/L (0-10)
[2022-03-18 12:04] LABS: Anion Gap 23.3 (5-19); Blood Urea Nitrogen 78 mg/dL (8-23); Calcium 9.1 mg/dL (8.5-10.5); Carbon Dioxide 22 mmol/L (22-29); Chloride 78 mmol/L (98-107); Glucose 175 mg/dL (65-115); Osmolality Calculated 276 mOsm/kg (285-295); Potassium 4.3 mmol/L (3.5-5.1)
[2022-03-18 12:07] LABS: Troponin 5 2HR Delta 20.05 ABS# (0-10)
[2022-03-18 12:08] LABS: Sodium 119 mmol/L (136-145)
--- NOTE | 2022-03-18 12:11 | PC.NURSE ---
Dr. snyder was notified of NA 119 and positive change in troponin, no n.o. at this time
--- NOTE | 2022-03-18 13:31 | PM.PN ---
Subjective Subjective: Patient was seen and examined this morning, she was complaining of significant left sided arm and shoulder pain radiating to the back, told it appears similar to 1 she experienced during her last heart attack.Good urine output with Lasix drip. Medications: Reviewed: Yes Medication Review Details: Generic Name Dose Route Start Last Admin Trade Name Freq PRN Reason Stop Dose Admin Acetaminophen 500 mg 03/16/22 00:12 03/18/22 02:13 Acetaminophen 50 0 Mg Tablet PO 500 mg Q4H PRN Administration fever Albuterol/Ipratrop ium 3 ml 03/16/22 00:45 03/18/22 08:23 Ipratropium-Albu terol 3 Ml Neb INHALATION 3 ml Q6H PRN Administration SHORTNESS OF AUREA TH Allopurinol 300 mg 03/16/22 09:00 03/18/22 08:28 Allopurinol 300 Mg Tablet PO 300 mg DAILY MINGO Administration Alprazolam 0.25 mg 03/16/22 15:36 03/17/22 18:46 Alprazolam 0.5 M g Tablet PO 0.25 mg BID PRN Administration ANXIETY Amiodarone HCl 400 mg 03/16/22 09:00 03/18/22 08:28 Amiodarone 200 M g Tablet PO 400 mg DAILY MINGO Administration Amoxicillin/Clavul anate Potassium 1 tab 03/17/22 18:00 03/18/22 08:28 Amoxicillin-Clav 500-125 Mg Tablet PO 1 tab BID MINGO Administration Protocol Aspirin 81 mg 03/16/22 09:00 03/18/22 08:28 Aspirin 81 Mg Ch ew Tablet PO 81 mg DAILY MINGO Administration Atorvastatin Calci um 80 mg 03/16/22 09:00 03/18/22 08:28 Atorvastatin 40 Mg Tablet PO 80 mg DAILY MINGO Administration Furosemide 100 mg/ Sodium 50 mls @ 0 mls/hr 03/17/22 08:15 03/18/22 08:50 Chloride IV 10 mg/hr .Q0M MINGO 5 mls/hr Administration Protocol Per Protocol Nitroglycerin/Dext letha 50 mg in 250 mls @ 0 mls/hr 03/18/22 10:15 03/18/22 10:[address] ip IV 10 mcg/min .Q0M MINGO 3 mls/hr Administration Protocol Per Protocol Lorazepam 0.5 mg 03/17/22 08:14 03/17/22 08:34 Lorazepam 2 Mg/M l Inj 1 Ml IVP 0.5 mg Q4H PRN Administration ANXIETY Morphine Sulfate 15 mg 03/16/22 00:45 03/18/22 11:22 Morphine Ir 15 M g Tablet PO 15 mg Q6H PRN Administration MODERATE PAIN Senna/Docusate Sod ium 1 tab 03/16/22 09:00 03/18/22 08:29 Sennosides-Docus ate Tablet PO 1 tab DAILY MINGO Administration Vitals/I&O/Wt Last Vital Signs Temp 97.8 F 03/18/22 06:00 Pulse 70 03/18/22 12:00 Resp 19 H 03/18/22 12:00 BP 123/80 03/18/22 12:00 Pulse Ox 96 03/18/22 12:00 O2 Del Method 03/18/22 08:15 O2 Flow Rate 3 03/18/22 08:15 FiO2 30 03/17/22 19:47 03/17/22 03/18/22 03/18/22 22:59 06:59 14:59 Intake Total 717.766 / 849.724 960 / 1809.724 388.667 / 388.667 Output Total 1900 / 2600 1400 / 4000 Balance -1182.234 / -1750.276 -440 / -2190.276 388.667 / 388.667 Physical Exam Resp: OTHER: Diminished air entry bilaterally Cardio: COMMON NORMALS: No rub (Cardio) and Peripheral pulses 2+ throughout PERIPHERAL PULSES: Peripheral pulses 2+ throughout OTHER: Irregularly irregular rhythm, S1-S2 variable intensity GI: COMMON NORMALS: Normal to inspection, nondistended, normoactive bowel sounds present, Soft to palpation, non-tender, No hepatosplenomegaly present and no masses AUSCULTATION: Yes normoactive bowel sounds PALPATION: Yes Soft to palpation and Yes No hepatosplenomegaly present RECTAL EXAM: deferred Extremity: COMMON NORMALS: no clubbing, cyanosis or edema and no pedal edema Urinary Catheter Management: Yu: Cath Placed During This Visit: yes Reason for Continuing Indwelling Catheter: Accurate Measurement of Urinary Output in Critically Ill Patients Urinary Catheter Date of Insertion: 03/16/22 Urinary Catheter Time of Insertion: 20:45 Data 03/18/22 03:59 03/18/22 11:37 Micro: Microbiology 03/17/22 11:35 Urine Culture - Preliminary Urine,Clean Catch A&P Assessment and plan (1) CHF exacerbation: (2) ICD (implantable cardioverter-defibrillator), dual, in situ: (3) Chronic episodic atrial fibrillation: (4) Hyperkalemia: (5) Hyponatremia: Plan 65 year old female who has history of chronic atrial fibrillation, ischemic cardiomyopathy PCI to right coronary mixed systolic diastolic congestive heart failure status post AICD placement(EF 30%) was brought in with chief complaint of worsening shortness of breath as well as cough going on for the last few days extremely bad yesterday, she was being treated as an outpatient by her PCP with azithromycin Augmentin, and prednisone for possible bronchitis. Currently she is being managed for Assessment Decompensated heart failure: Impending cardiogenic shock Worsening YUDI on CKD: Baseline serum creatinine appears to be around 1.5-1.6: Possibly secondary CRS 2/2 decompensated heart failure NSTEMI : Severe hypervolemic hyponatremia History of chronic atrial fibrillation History of coronary artery disease Bronchitis Tendinopathy of rotator cuff: History of gout Plan: X-ray chest: Is showing diffuse pulmonary vascular congestion, elevated proBNP: 27697, Troponin trend:52-72- Serial EKG: Paced rhythm no acute ST-T wave changes Currently she is on Lasix drip running at 7.5 mg/hr, was on metolazone 10 mg p.o. daily, has been discontinued due to hyponatremia. On heparin drip On nitro drip Monitor intake output charting Monitor electrolytes K>4 ,MG>2 Monitor daily weight Avoid nephrotoxic's Telemetry monitoring Continue amiodarone Continue aspirin Hold Eliquis Plan was to use tolvaptan currently not available Fluid restriction to 1200 cc Continue Augmentin Nephrology on board Cardiology on board CODE STATUS: Full code DVT prophylaxis: Not needed on Eliquis Attestations Medical Necessity Statement*: Patient is in hospital for management of NSTEMI. Critical Care Time: The high probability of a clinically significant, sudden or life threatening deterioration of the patient's [] system(s) required my full and direct attention, intervention and personal management. The critical care time is as shown. This time is in addition to time spent performing any reported procedures but includes the following: [x] Data and vital sign review and interpretation [x] Patient assessment, examination and intervention [x] Documentation [x] Medication orders and management Critical Care Time (min): 60 Coding Level of Care Code Acute Events Associate for Chg Fwd Exam Expanded Problem Focused Diagnoses CHF exacerbation I50.9 ICD (implantable cardioverter-defibrillator), dual, in situ Z95.810 Chronic episodic atrial fibrillation I48.20 Hyperkalemia E87.5 Hyponatremia E87.1
[2022-03-18] MEDS: ondansetron 2 mg/ML SDV 2 mL 4 MG IVP ×2 (14:18→20:43)
[2022-03-18 15:51] LABS: Troponin 5 6HR Delta 179 ng/L (0-12)
--- NOTE | 2022-03-18 16:39 | ECG_ITS ---
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 Measurements Intervals [place] Rate: 69 P: 141 [place]: 258 QRS: -73 QRSD: 222 T: 109 QT: 519 QTc: 558 Interpretive Statements ELECTRONIC ATRIAL PACEMAKER LEFT AXIS DEVIATION [QRS AXIS < -30] INTRAVENTRICULAR CONDUCTION DELAY [130+ ms QRS DURATION] Compared to ECG 03/18/2022 11:32:26 No significant changes Electronically Signed On 03-18-2022 19:49:01 JINGLE WRITER by Ba Davis M.D. [id number]
[2022-03-18 16:57] LABS: Partial Thromboplastin Time 37.5 SECONDS (23.9-36.7)
[2022-03-18] MEDS: sodium chloride 1 gm Tablet 2 GM PO (17:12)
[2022-03-18] MEDS: LORazepam 2 mg/mL INJ 1 mL 0.5 MG IVP (19:52)
[2022-03-18 22:07] LABS: Partial Thromboplastin Time 33.5 SECONDS (23.9-36.7)
[2022-03-18] MEDS: heparin 5,000 unit/mL INJ 1 mL IV (23:35)
[2022-03-19] VITALS (27 sets, daily range): BP systolic 93–119; BP diastolic 57–80; PULSE 69–77; RESP 12–20; TEMP 36.1–36.7; O2SAT 88–98
[2022-03-19] MEDS: morphine 4 mg/mL SDV 1 mL 0.5 MG IVP (03:37)
[2022-03-19] MEDS: LORazepam 2 mg/mL INJ 1 mL 0.5 MG IVP ×2 (04:35→21:16)
[2022-03-19 05:48] LABS: Hematocrit 35.3 % (37.0-47.0); Hemoglobin 11.7 g/dL (11.5-15.3); Lymphocytes # 1.1 10^3/uL (0.8-4.8); Lymphocytes % 13.6 %; Mean Corpuscular HGB Conc 33.1 g/dL (30.0-36.0); Mean Corpuscular Hemoglobin 32.3 pg (28.0-34.0); Mean Corpuscular Volume 97.5 fl (81-99); Mean Platelet Volume 11.6 fL (7.4-10.4); Monocytes # 0.5 10^3/uL (0.2-0.9); Monocytes % 5.9 %; Neutrophils # 6.67 10^3/uL (1.8-7.7); Neutrophils % 79.8 %; Nucleated Red Blood Cells % 0.2 %; Platelet Count 149 10^3/cmm (130-400); Red Blood Count 3.62 10^6/uL (4.1-5.3); Red Cell Distribution Width 14.1 % (12.1-15.1); White Blood Count 8.4 10^3/uL (4.0-10.0)
[2022-03-19 05:59] LABS: Partial Thromboplastin Time 35.5 SECONDS (23.9-36.7)
[2022-03-19 06:05] LABS: Albumin Level 3.8 g/dL (3.5-5.2); Alkaline Phosphatase 146 U/L (35-105); Anion Gap 16.8 (5-19); Calcium 9.3 mg/dL (8.5-10.5); Carbon Dioxide 31 mmol/L (22-29); Chloride 77 mmol/L (98-107); Globulin 3.1 g/dL (1.3-4.6); Glomerular Filtration Rate 16.2 mL/min (90-130); Glucose 155 mg/dL (65-115); Magnesium 2.4 mg/dL (1.7-2.3); Osmolality Calculated 281 mOsm/kg (285-295); Phosphorus 7.4 mg/dL (2.5-4.5); Potassium 3.8 mmol/L (3.5-5.1); Sodium 121 mmol/L (136-145); Total Bilirubin 0.7 mg/dL (0.15-1.2); Total Protein 6.9 g/dL (6.6-8.7)
[2022-03-19] MEDS: heparin 5,000 unit/mL INJ 1 mL IV (06:17)
[2022-03-19 06:26] LABS: Blood Urea Nitrogen 84 mg/dL (8-23)
[2022-03-19 06:32] LABS: Alanine Aminotransferase 1360 U/L (0-33)
[2022-03-19 06:50] LABS: Aspartate Amino Transferase 702 U/L (0-32)
--- NOTE | 2022-03-19 07:36 | PC.NURSE ---
Lasix drip reduced from 7.5 to 5mg/hr per Dr benavides orders.
--- NOTE | 2022-03-19 08:04 | P.PN_ITS ---
Subjective Subjective: lethargic after paon meds- morphine. dec edema. breathing improved. ROS limited by poor MS Medications: Reviewed: Yes Medication Review Details: Current Medications Acetaminophen (Acetaminophen 500 Mg Tablet) 500 mg PO Q4H PRN PRN Reason: fever Last Admin: 03/18/22 02:13 Dose: 500 mg Albuterol/Ipratropium (Ipratropium-Albuterol 3 Ml Neb) 3 ml INHALATION Q6H PRN PRN Reason: SHORTNESS OF BREATH Last Admin: 03/18/22 08:23 Dose: 3 ml Allopurinol (Allopurinol 300 Mg Tablet) 300 mg PO DAILY [facility] Last Admin: 03/18/22 08:28 Dose: 300 mg Alprazolam (Alprazolam 0.5 Mg Tablet) 0.25 mg PO BID PRN PRN Reason: ANXIETY Last Admin: 03/17/22 18:46 Dose: 0.25 mg Amiodarone HCl (Amiodarone 200 Mg Tablet) 400 mg PO DAILY [facility] Last Admin: 03/18/22 08:28 Dose: 400 mg Amoxicillin/Clavulanate Potassium (Amoxicillin-Clav 500-125 Mg Tablet) 1 tab PO BID [facility]; Protocol Last Admin: 03/18/22 17:11 Dose: 1 tab Aspirin (Aspirin 81 Mg Chew Tablet) 81 mg PO DAILY [facility] Last Admin: 03/18/22 08:28 Dose: 81 mg Atorvastatin Calcium (Atorvastatin 40 Mg Tablet) 80 mg PO DAILY [facility] Last Admin: 03/18/22 08:28 Dose: 80 mg Diclofenac Sodium (Diclofenac 1% Topical Gel 100 Gm) 1 applic TOPICAL QID PRN PRN Reason: pain Heparin Sodium (Porcine) (Heparin 5,000 Unit/Ml Inj 1 Ml) 0 unit IV PRN PRN; Protocol PRN Reason: Heparin weight-base protocol Last Admin: 03/19/22 06:17 Dose: 2,200 unit Furosemide 100 mg/ Sodium (Chloride) 50 mls @ 0 mls/hr IV .Q0M MINGO; Protocol Last Titration: 03/19/22 07:36 Dose: 5 mg/hr, 2.5 mls/hr Norepinephrine Bitartrate 4 mg (/ Dextrose) 254 mls @ 0 mls/hr IV .Q0M MINGO; Protocol Nitroglycerin/Dextrose (Nitroglycerin Drip) 50 mg in 250 mls @ 0 mls/hr IV .Q0M MINGO; Protocol Last Titration: 03/19/22 00:15 Dose: 0 mcg/min, 0 mls/hr Heparin Sodium/Sodium Chloride (Heparin Drip) 25,000 unit in 500 mls @ 0 mls/hr IV .Q0M MINGO; Protocol Last Titration: 03/19/22 06:17 Dose: 9.44 unit/kg/hr, 22 mls/hr Lorazepam (Lorazepam 2 Mg/Ml Inj 1 Ml) 0.5 mg IVP Q4H PRN PRN Reason: ANXIETY Last Admin: 03/19/22 04:35 Dose: 0.5 mg Morphine Sulfate (Morphine Ir 15 Mg Tablet) 15 mg PO Q6H PRN PRN Reason: MODERATE PAIN Last Admin: 03/18/22 11:22 Dose: 15 mg Morphine Sulfate (Morphine 4 Mg/Ml Sdv 1 Ml) 0.5 mg IVP Q4H PRN PRN Reason: SEVERE PAIN Last Admin: 03/19/22 03:37 Dose: 0.5 mg Nitroglycerin (Nitroglycerin 0.4 Mg Sublingual Tablet) 0.4 mg SUBLINGUAL Q5M PRN PRN Reason: CHEST PAIN Ondansetron HCl (Ondansetron 2 Mg/Ml Sdv 2 Ml) 4 mg IVP Q6H PRN PRN Reason: NAUSEA AND VOMITING Last Admin: 03/18/22 20:43 Dose: 4 mg Senna/Docusate Sodium (Sennosides-Docusate Tablet) 1 tab PO DAILY [facility] Last Admin: 03/18/22 08:29 Dose: 1 tab Sodium Chloride (Sodium Chloride 1 Gm Tablet) 2 gm PO BID [facility] Last Admin: 03/18/22 17:12 Dose: 2 gm Vitals/I&O/Wt Last Vital Signs Temp 97.8 F 03/19/22 04:00 Pulse 70 03/19/22 06:00 Resp 18 03/19/22 04:00 BP 105/76 03/19/22 04:00 Pulse Ox 97 03/19/22 04:00 O2 Del Method 03/18/22 20:04 O2 Flow Rate 3 03/18/22 20:04 FiO2 30 03/17/22 19:47 03/18/22 03/19/22 03/19/22 22:59 06:59 14:59 Intake Total 593.506 / 982.173 287.394 / 1269.567 38.688 / 38.688 Output Total 4300 / 4300 1900 / 6200 Balance -3706.494 / -3317.827 -1612.606 / -4930.433 38.688 / 38.688 Physical Exam Narrative: weak, ill appearing, sob vs noted heent- nc/at,eomi, anicteric neck supple lungs dull bases and crackles heart reg abd soft, nt, nd, + bs ext b/l edema neuro- lethargic,awakens, oriented x 3 Urinary Catheter Management: Yu: Cath Placed During This Visit: yes Reason for Continuing Indwelling Catheter: Accurate Measurement of Urinary Out put in Critically Ill Patients Urinary Catheter Date of Insertion: 03/16/22 Urinary Catheter Time of Insertion: 20:45 Data 03/19/22 05:10 03/19/22 05:10 Micro: Microbiology 03/17/22 11:35 Urine Culture - Preliminary Urine,Clean Catch A&P Assessment and plan (1) Acute kidney injury: seen via telemedicine with assistance of RN at bedside Plan 1. Acute kidney injury, oliguric, decompensated heart failure. urine output improving- dec rate of lasix gtt- consider changing lasix to bid 2. Hyperkalemia improved 3. Hypervolemic hyponatremia- na 121 after diuresis -fluid restrict check chem 7 bid 4. Chronic kidney disease: baseline Cr 1.5 - 1.6 mg/dL small kidneys on renal us 5. met alkalosis from diuretics meds reviewed time spent 30 minutes Attestations Medical Necessity Statement*: anish, chf, electrolyte abnormalities Time Spent in Patient Care: 16 - 35 minutes (>than 50% of time spent in counselling and/or direct pt care on unit) . Coding Level of Care Code Acute Director Oracle Database for Miguelina Lynch Diagnoses Acute kidney injury N17.9
[2022-03-19] MEDS: sennosides-docusate Tablet 1 TAB PO (08:33)
[2022-03-19] MEDS: aspirin 81 mg Chew Tablet PO (08:33)
[2022-03-19] MEDS: amiodarone 200 mg Tablet 400 MG PO (08:33)
[2022-03-19] MEDS: atorvastatin 40 mg Tablet 80 MG PO (08:33)
[2022-03-19] MEDS: allopurinol 300 mg Tablet PO (08:33)
[2022-03-19] MEDS: amoxicillin-clav 500-125 mg Tablet 1 TAB PO (08:34)
[2022-03-19] MEDS: morphine IR 15 mg Tablet PO (08:36)
[2022-03-19] MEDS: ondansetron 2 mg/ML SDV 2 mL 4 MG IVP ×2 (09:27→21:13)
[2022-03-19] MEDS: metoclopramide 5 mg/mL SDV 2 mL IVP (10:28)
[2022-03-19] MEDS: FUROsemide 100 MG in sodium chloride 0.9% 40 ML IV (11:22)
[2022-03-19 12:50] LABS: Anion Gap 19.6 (5-19); Blood Urea Nitrogen 80 mg/dL (8-23); Calcium 9.5 mg/dL (8.5-10.5); Carbon Dioxide 33 mmol/L (22-29); Chloride 78 mmol/L (98-107); Glomerular Filtration Rate 17.6 mL/min (90-130); Glucose 172 mg/dL (65-115); Osmolality Calculated 292 mOsm/kg (285-295); Potassium 3.6 mmol/L (3.5-5.1); Sodium 127 mmol/L (136-145)
[2022-03-19 12:52] LABS: Partial Thromboplastin Time 59.9 SECONDS (23.9-36.7)
--- NOTE | 2022-03-19 13:15 | P.PN_ITS ---
Subjective Subjective: Patient was seen and examined this morning, extremely, lethargic, fatigued, she denied any chest pain or shoulder pain today. Continue to have robust urine output,nitro drip has been turned off, Lasix drip is being down titrated.Serum sodium is improving. Serum creatinine is trending down, Medications: Reviewed: Yes Medication Review Details: Generic Name Dose Route Start Last Admin Trade Name Charo PRN Reason Stop Dose Admin Acetaminophen 500 mg 03/16/22 00:12 03/18/22 02:13 Acetaminophen 50 0 Mg Tablet PO 500 mg Q4H PRN Administration fever Albuterol/Ipratrop ium 3 ml 03/16/22 00:45 03/18/22 08:23 Ipratropium-Albu terol 3 Ml Neb INHALATION 3 ml Q6H PRN Administration SHORTNESS OF AUREA TH Allopurinol 300 mg 03/16/22 09:00 03/19/22 08:33 Allopurinol 300 Mg Tablet PO 300 mg DAILY MINGO Administration Alprazolam 0.25 mg 03/16/22 15:36 03/17/22 18:46 Alprazolam 0.5 M g Tablet PO 0.25 mg BID PRN Administration ANXIETY Amiodarone HCl 400 mg 03/16/22 09:00 03/19/22 08:33 Amiodarone 200 M g Tablet PO 400 mg DAILY MINGO Administration Amoxicillin/Clavul anate Potassium 1 tab 03/17/22 18:00 03/19/22 08:34 Amoxicillin-Clav 500-125 Mg Tablet PO 1 tab BID MINGO Administration Protocol Aspirin 81 mg 03/16/22 09:00 03/19/22 08:33 Aspirin 81 Mg Ch ew Tablet PO 81 mg DAILY MINGO Administration Atorvastatin Calci um 80 mg 03/16/22 09:00 03/19/22 08:33 Atorvastatin 40 Mg Tablet PO 80 mg DAILY MINGO Administration Heparin Sodium (Po rcine) 0 unit 03/18/22 10:09 03/19/22 06:17 Heparin 5,000 Un it/Ml Inj 1 Ml IV 2,200 unit PRN PRN Administration Heparin weight-ba se protocol Protocol Furosemide 100 mg/ Sodium 50 mls @ 0 mls/hr 03/17/22 08:15 03/19/22 11:22 Chloride IV 5 mg/hr .Q0M MINGO 2.5 mls/hr Administration Protocol Per Protocol Nitroglycerin/Dext letha 50 mg in 250 mls @ 0 mls/hr 03/18/22 10:15 03/19/22 00:[address] ip IV 0 mcg/min .Q0M MINGO 0 mls/hr Titration Protocol Per Protocol Heparin Sodium/Sod ium Chloride 25,000 unit in 50 0 mls @ 0 mls/hr 03/18/22 10:15 03/19/22 06:17 Heparin Drip IV 9.44 unit/kg/hr .Q0M MINGO 22 mls/hr Titration Protocol Per Protocol Lorazepam 0.5 mg 03/17/22 08:14 03/19/22 04:35 Lorazepam 2 Mg/M l Inj 1 Ml IVP 0.5 mg Q4H PRN Administration ANXIETY Metoclopramide HCl 5 mg 03/19/22 10:17 03/19/22 10:28 Metoclopramide 5 Mg/Ml Sdv 2 Ml IVP 5 mg Q6H PRN Administration NAUSEA AND VOMITI NG Morphine Sulfate 15 mg 03/16/22 00:45 03/19/22 08:36 Morphine Ir 15 M g Tablet PO 15 mg Q6H PRN Administration MODERATE PAIN Morphine Sulfate 0.5 mg 03/18/22 09:13 03/19/22 03:37 Morphine 4 Mg/Ml Sdv 1 Ml IVP 0.5 mg Q4H PRN Administration SEVERE PAIN Ondansetron HCl 4 mg 03/16/22 00:45 03/19/22 09:27 Ondansetron 2 Mg /Ml Sdv 2 Ml IVP 4 mg Q6H PRN Administration NAUSEA AND VOMITI NG Senna/Docusate Sod ium 1 tab 03/16/22 09:00 03/19/22 08:33 Sennosides-Docus ate Tablet PO 1 tab DAILY MINGO Administration Vitals/I&O/Wt Last Vital Signs Temp 96.9 F L 03/19/22 09:00 Pulse 70 03/19/22 12:00 Resp 14 03/19/22 12:00 BP 113/76 03/19/22 12:00 Pulse Ox 92 03/19/22 12:00 O2 Del Method 03/19/22 12:00 O2 Flow Rate 2.5 03/19/22 12:00 FiO2 30 03/17/22 19:47 12/0403/19/22 03/19/22 22:59 06:59 14:59 Intake Total 593.506 / 982.173 287.394 / 1269.567 48.105 / 48.105 Output Total 4300 / 4300 1900 / 6200 1550 / 1550 Balance -3706.494 / -3317.827 -1612.606 / -4930.433 -1501.895 / -1501.895 Physical Exam Resp: OTHER: Diminished air entry bilaterally Cardio: COMMON NORMALS: regular rate, regular rhythm, S1 normal heart sound present, S2 normal heart sound present, No gallops present (Cardio), No murmurs present (Cardio), No rub (Cardio) and Peripheral pulses 2+ throughout RATE: regular rate RHYTHM: regular rhythm HEART SOUNDS: S1 normal heart sound present and S2 normal heart sound present PERIPHERAL PULSES: Peripheral pulses 2+ throughout OTHER: Irregularly irregular rhythm, S1-S2 variable intensity GI: COMMON NORMALS: Normal to inspection, nondistended, normoactive bowel sounds present, Soft to palpation, non-tender, No hepatosplenomegaly present and no masses AUSCULTATION: Yes normoactive bowel sounds PALPATION: Yes Soft to palpation and Yes No hepatosplenomegaly present RECTAL EXAM: deferred Extremity: NARRATIVE EXTREMITY EXAM: 2+ bilateral lower extremity pitting edema Urinary Catheter Management: Yu: Cath Placed During This Visit: yes Reason for Continuing Indwelling Catheter: Accurate Measurement of Urinary Output in Critically Ill Patients Urinary Catheter Date of Insertion: 03/16/22 Urinary Catheter Time of Insertion: 20:45 Data 03/19/22 05:10 03/19/22 11:55 Micro: Microbiology 03/17/22 11:35 Urine Culture - Final Urine,Clean Catch A&P Assessment and plan (1) CHF exacerbation: (2) ICD (implantable cardioverter-defibrillator), dual, in situ: (3) Chronic episodic atrial fibrillation: (4) Hyperkalemia: (5) Hyponatremia: Plan 65 year old female who has history of chronic atrial fibrillation, ischemic cardiomyopathy PCI to right coronary mixed systolic diastolic congestive heart failure status post AICD placement(EF 30%) was brought in with chief complaint of worsening shortness of breath as well as cough going on for the last few days extremely bad yesterday, she was being treated as an outpatient by her PCP with azithromycin Augmentin, and prednisone for possible bronchitis. Currently she is being managed for Assessment Decompensated heart failure: Impending cardiogenic shock Worsening YUDI on CKD: Baseline serum creatinine appears to be around 1.5-1.6: Possibly secondary CRS 2/2 decompensated heart failure NSTEMI : Severe hypervolemic hyponatremia Transaminitis: Possibly secondary to congestive hepatopathy secondary to decompensated heart failure.Will get ultrasound abdomen. Possibly hepatitis panel. Medication reviewed: She is on amiodarone. Currently also on Augmentin. W ill DC Augmentin. We will hold allopurinol and atorvastatin. Will need monitoring for cholecystitis/not to forget acalculous cholecystitis. Currently total bilirubin is normal. History of chronic atrial fibrillation History of coronary artery disease Bronchitis Tendinopathy of rotator cuff: History of gout Plan: X-ray chest: Is showing diffuse pulmonary vascular congestion, elevated proBNP: 31222, Troponin trend:52-72- Serial EKG: Paced rhythm no acute ST-T wave changes Currently she is on Lasix drip running at 5 mg/hr, was on metolazone (thiazide like diuretic) 10 mg p.o. daily, has been discontinued due to hyponatremia. On heparin drip Was on nitro drip Monitor intake output charting Monitor electrolytes K>4 ,MG>2 Monitor daily weight Avoid nephrotoxic's Telemetry monitoring Continue amiodarone Continue aspirin Hold Eliquis Plan was to use tolvaptan currently not available Fluid restriction to 1200 cc Was on Augmentin: Has been discontinued due to transaminitis.Will switch to Rocephin. Nephrology on board Cardiology on board CODE STATUS: Full code DVT prophylaxis: Not needed on Eliquis Attestations Medical Necessity Statement*: Patient is still in hospital management of, NSTEMI. Time Spent in Patient Care: Greater than 35 minutes (>than 50% of time spent in counselling and/or direct pt care on unit) . Critical Care Time: The high probability of a clinically significant, sudden or life threatening deterioration of the patient's [] system(s) required my full and direct attention, intervention and personal management. The critical care time is as shown. This time is in addition to time spent performing any reported procedures but includes the following: [x] Data and vital sign review and interpretation [x] Patient assessment, examination and intervention [x] Documentation [x] Medication orders and management Critical Care Time (min): 60 Coding Level of Care Code Acute Fuel Oil Truck Driver for Chg Fwd Diagnoses CHF exacerbation I50.9 ICD (implantable cardioverter-defibrillator), dual, in situ Z95.810 Chronic episodic atrial fibrillation I48.20 Hyperkalemia E87.5 Hyponatremia E87.1
--- NOTE | 2022-03-19 13:20 | US_ITS ---
WS: [id number] RIGHT UPPER QUADRANT ULTRASOUND HISTORY: Transaminitis COMPARISON: None available. Liver: 18.0 cm in length. Liver is top normal size to slightly enlarged. Mild coarsened echotexture. No mass or bile duct dilatation. Portal Vein: Normal hepatopetal flow with monophasic waveform. Gallbladder: Normally distended gallbladder with no stones or wall thickening. CBD: 0.3 cm Pancreas: Normal size and echogenicity. Right kidney: 9.6 cm in length. Normal size kidney. No hydronephrosis. Simple cyst upper pole measure s 2.0 x 2.2 cm. Aorta and IVC: Unremarkable abdominal aorta and IVC. No ascites. US/US abdomen limited 12437 IMPRESSION: 1. Normal gallbladder. 2. Mild hepatic steatosis, liver is top normal size. 3. Simple RIGHT renal cyst, maximum diameter 2.2 cm.
[2022-03-19] MEDS: cefTRIAXone 1,000 MG in sodium chloride 0.9% (plus) 50 ML 100 MG IV (14:27)
[2022-03-19] MEDS: heparin drip 25,000 UNIT/500 ML PREMIX 22 UNIT IV (15:40)
--- NOTE | 2022-03-19 18:32 | PC.NURSE ---
Shift SUmmary: Uneventful shift. Patient was up to a chair for about half of the day. Urine output has been 3500mL and oral intake has been 600mL. Patient did better with PO morphine for pain relief rather than IV morphine as she had enough strength and coordination to get up to a chair and reposition more easily which also helped relieve pain.
[2022-03-19 18:34] LABS: Alkaline Phosphatase 147 U/L (35-105); Anion Gap 16.6 (5-19); Aspartate Amino Transferase 482 U/L (0-32); Blood Urea Nitrogen 79 mg/dL (8-23); Calcium 9.8 mg/dL (8.5-10.5); Carbon Dioxide 37 mmol/L (22-29); Chloride 76 mmol/L (98-107); Globulin 3.2 g/dL (1.3-4.6); Glomerular Filtration Rate 17.6 mL/min (90-130); Glucose 161 mg/dL (65-115); Osmolality Calculated 289 mOsm/kg (285-295); Potassium 3.6 mmol/L (3.5-5.1); Sodium 126 mmol/L (136-145); Total Bilirubin 0.7 mg/dL (0.15-1.2); Total Protein 7.2 g/dL (6.6-8.7)
[2022-03-19 18:45] LABS: Alanine Aminotransferase 1270 U/L (0-33)
[2022-03-19 19:14] LABS: Partial Thromboplastin Time 59.9 SECONDS (23.9-36.7)
[2022-03-20] VITALS (32 sets, daily range): BP systolic 76–130; BP diastolic 42–71; PULSE 69–74; RESP 12–24; TEMP 36.5; O2SAT 90–97
[2022-03-20] MEDS: heparin 5,000 unit/mL INJ 1 mL IV (00:45)
[2022-03-20 01:34] LABS: Basophils % 0.1 %; Eosinophils % 0.2 %; Hematocrit 37.1 % (37.0-47.0); Hemoglobin 12.4 g/dL (11.5-15.3); Lymphocytes # 0.9 10^3/uL (0.8-4.8); Lymphocytes % 11.1 %; Mean Corpuscular HGB Conc 33.4 g/dL (30.0-36.0); Mean Corpuscular Hemoglobin 32.3 pg (28.0-34.0); Mean Corpuscular Volume 96.6 fl (81-99); Mean Platelet Volume 11.5 fL (7.4-10.4); Monocytes # 0.4 10^3/uL (0.2-0.9); Neutrophils # 6.81 10^3/uL (1.8-7.7); Neutrophils % 82.9 %; Nucleated Red Blood Cells % 0 %; Platelet Count 156 10^3/cmm (130-400); Red Blood Count 3.84 10^6/uL (4.1-5.3); White Blood Count 8.2 10^3/uL (4.0-10.0)
[2022-03-20 01:45] LABS: Partial Thromboplastin Time 47.7 SECONDS (23.9-36.7)
[2022-03-20 01:50] LABS: Albumin Level 3.9 g/dL (3.5-5.2); Alkaline Phosphatase 137 U/L (35-105); Anion Gap 17.2 (5-19); Aspartate Amino Transferase 419 U/L (0-32); Blood Urea Nitrogen 75 mg/dL (8-23); Calcium 9.7 mg/dL (8.5-10.5); Carbon Dioxide 39 mmol/L (22-29); Chloride 76 mmol/L (98-107); Glomerular Filtration Rate 19.2 mL/min (90-130); Glucose 167 mg/dL (65-115); Magnesium 2.3 mg/dL (1.7-2.3); Osmolality Calculated 294 mOsm/kg (285-295); Phosphorus 5.1 mg/dL (2.5-4.5); Potassium 3.2 mmol/L (3.5-5.1); Sodium 129 mmol/L (136-145); Total Bilirubin 0.8 mg/dL (0.15-1.2); Total Protein 6.9 g/dL (6.6-8.7)
[2022-03-20 02:03] LABS: Alanine Aminotransferase 1210 U/L (0-33)
[2022-03-20] MEDS: FUROsemide 100 MG in sodium chloride 0.9% 40 ML IV (06:18)
[2022-03-20] MEDS: ipratropium-albuterol 3 mL Neb INHALATION (08:01)
[2022-03-20 08:13] LABS: Partial Thromboplastin Time 74.7 SECONDS (23.9-36.7)
[2022-03-20] MEDS: lidocaine 1% 5 ML in potassium chloride premix 100 ML 50 ML IV (08:50)
[2022-03-20] MEDS: sennosides-docusate Tablet 1 TAB PO (08:51)
[2022-03-20] MEDS: aspirin 81 mg Chew Tablet PO (08:51)
[2022-03-20] MEDS: amiodarone 200 mg Tablet 400 MG PO (08:51)
[2022-03-20] MEDS: morphine IR 15 mg Tablet PO (09:07)
--- NOTE | 2022-03-20 09:56 | PC.NURSE ---
Dr. Bass gave t.o. to hold PO potassium order
--- NOTE | 2022-03-20 10:05 | P.PN_ITS ---
Subjective Subjective: (Please consider this note as documentation for 03/19/2022, as note was missed) Patient is drowsy. Denies chest pain. Diuresing well. Creatinine is improving Vitals/I&O/Wt Last Vital Signs Temp 97.7 F 03/20/22 00:00 Pulse 70 03/20/22 08:00 Resp 16 03/20/22 09:07 BP 97/58 03/20/22 08:00 Pulse Ox 94 03/20/22 09:07 O2 Del Method 03/20/22 07:30 O2 Flow Rate 2 03/20/22 07:30 FiO2 30 03/17/22 19:47 03/19/22 03/20/22 03/20/22 22:59 06:59 14:59 Intake Total 701.667 / 862.105 547.166 / 1409.271 Output Total 2200 / 5200 1500 / 6700 Balance -1498.333 / -4337.895 -952.834 / -5290.729 Physical Exam Narrative: GENERAL: Patient is drowsy NECK: No jugular vein distension. [] HEENT: No cyanosis. No icterus. No pallor. [] HEART: Regular S1 and S2. LUNGS: Diminished breath sounds ABDOMEN: Soft CENTRAL NERVOUS SYSTEM: Grossly nonfocal. [] EXTREMITIES: Lower extremities with 1+ edema bilaterally. Pulses palpable in the lower extremities, both dorsalis pedis and posterior tibial. [] Urinary Catheter Management: Yu: Cath Placed During This Visit: yes Reason for Continuing Indwelling Catheter: Accurate Measurement of Urinary Output in Critically Ill Patients Urinary Catheter Date of Insertion: 03/16/22 Urinary Catheter Time of Insertion: 20:45 Data 03/20/22 00:54 03/20/22 00:54 Micro: Microbiology 03/17/22 11:35 Urine Culture - Final Urine,Clean Catch A&P Assessment and plan (1) CHF exacerbation: (2) Hyponatremia: (3) Hyperkalemia: (4) ICD (implantable cardioverter-defibrillator), dual, in situ: (5) Troponin level elevated: Plan Continue on Lasix drip. Diuresing well. Strict I&O's. Continue aspirin and heparin drip. Will recommend medical therapy at this time given her significant renal dysfunction and comorbidities. Thank you for involving us with care of this patient. We will continue to follow. Please call with questions. Attestations Medical Necessity Statement*: Care expected to cross 2 midnights. Coding Level of Care Code Acute Metal Trades Instructor for Chg Fwd Diagnoses CHF exacerbation I50.9 Hyponatremia E87.1 Hyperkalemia E87.5 ICD (implantable cardioverter-defibrillator), dual, in situ Z95.810 Troponin level elevated R77.8
--- NOTE | 2022-03-20 10:07 | P.PN_ITS ---
Subjective Subjective: excellent uop. had runs of v tach overnight. dec edema and sob. no n/v/ovalle/cp Medications: Reviewed: Yes Medication Review Details: Current Medications Acetaminophen (Acetaminophen 500 Mg Tablet) 500 mg PO Q4H PRN PRN Reason: fever Last Admin: 03/18/22 02:13 Dose: 500 mg Albuterol/Ipratropium (Ipratropium-Albuterol 3 Ml Neb) 3 ml INHALATION Q6H PRN PRN Reason: SHORTNESS OF BREATH Last Admin: 03/20/22 08:01 Dose: 3 ml Allopurinol (Allopurinol 300 Mg Tablet) 300 mg PO DAILY [facility] Last Admin: 03/19/22 08:33 Dose: 300 mg Alprazolam (Alprazolam 0.5 Mg Tablet) 0.25 mg PO BID PRN PRN Reason: ANXIETY Last Admin: 03/17/22 18:46 Dose: 0.25 mg Amiodarone HCl (Amiodarone 200 Mg Tablet) 400 mg PO DAILY [facility] Last Admin: 03/20/22 08:51 Dose: 400 mg Aspirin (Aspirin 81 Mg Chew Tablet) 81 mg PO DAILY [facility] Last Admin: 03/20/22 08:51 Dose: 81 mg Atorvastatin Calcium (Atorvastatin 40 Mg Tablet) 80 mg PO DAILY [facility] Last Admin: 03/19/22 08:33 Dose: 80 mg Diclofenac Sodium (Diclofenac 1% Topical Gel 100 Gm) 1 applic TOPICAL QID PRN PRN Reason: pain Heparin Sodium (Porcine) (Heparin 5,000 Unit/Ml Inj 1 Ml) 0 unit IV PRN PRN; Protocol PRN Reason: Heparin weight-base protocol Last Admin: 03/20/22 00:45 Dose: 1,100 unit Norepinephrine Bitartrate 4 mg (/ Dextrose) 254 mls @ 0 mls/hr IV .Q0M MINGO; Protocol Nitroglycerin/Dextrose (Nitroglycerin Drip) 50 mg in 250 mls @ 0 mls/hr IV .Q0M MINGO; Protocol Last Titration: 03/19/22 00:15 Dose: 0 mcg/min, 0 mls/hr Heparin Sodium/Sodium Chloride (Heparin Drip) 25,000 unit in 500 mls @ 0 mls/hr IV .Q0M M[facility]; Protocol Last Titration: 03/20/22 00:45 Dose: 9.87 unit/kg/hr, 23 mls/hr Ceftriaxone Sodium 1,000 mg/ (Sodium Chloride) 50 mls @ 100 mls/hr IV Q24H MINGO; Protocol Last Infusion: 03/19/22 15:35 Dose: Infused Lorazepam (Lorazepam 2 Mg/Ml Inj 1 Ml) 0.5 mg IVP Q4H PRN PRN Reason: ANXIETY Last Admin: 03/19/22 21:16 Dose: 0.5 mg Metoclopramide HCl (Metoclopramide 5 Mg/Ml Sdv 2 Ml) 5 mg IVP Q6H PRN PRN Reason: NAUSEA AND VOMITING Last Admin: 03/19/22 10:28 Dose: 5 mg Morphine Sulfate (Morphine 4 Mg/Ml Sdv 1 Ml) 0.5 mg IVP Q4H PRN PRN Reason: SEVERE PAIN Last Admin: 03/19/22 03:37 Dose: 0.5 mg Morphine Sulfate (Morphine Ir 15 Mg Tablet) 15 mg PO Q6H PRN PRN Reason: MODERATE TO SEVERE PAIN Last Admin: 03/20/22 09:07 Dose: 15 mg Nitroglycerin (Nitroglycerin 0.4 Mg Sublingual Tablet) 0.4 mg SUBLINGUAL Q5M PRN PRN Reason: CHEST PAIN Ondansetron HCl (Ondansetron 2 Mg/Ml Sdv 2 Ml) 4 mg IVP Q6H PRN PRN Reason: NAUSEA AND VOMITING Last Admin: 03/19/22 21:13 Dose: 4 mg Senna/Docusate Sodium (Sennosides-Docusate Tablet) 1 tab PO DAILY [facility] Last Admin: 03/20/22 08:51 Dose: 1 tab Vitals/I&O/Wt Last Vital Signs Temp 97.7 F 03/20/22 00:00 Pulse 70 03/20/22 08:00 Resp 16 03/20/22 09:07 BP 97/58 03/20/22 08:00 Pulse Ox 94 03/20/22 09:07 O2 Del Method 03/20/22 07:30 O2 Flow Rate 2 03/20/22 07:30 FiO2 30 03/17/22 19:47 03/19/22 03/20/22 03/20/22 22:59 06:59 14:59 Intake Total 701.667 / 862.105 547.166 / 1409.271 Output Total 2200 / 5200 1500 / 6700 Balance -1498.333 / -4337.895 -952.834 / -5290.729 Physical Exam Narrative: weak, ill appearing, sob vs noted heent- nc/at,eomi, anicteric neck supple lungs dull bases and crackles heart reg abd soft, nt, nd, + bs ext b/l edema neuro- lethargic,awakens, oriented x 3 Urinary Catheter Management: Yu: Cath Placed During This Visit: yes Reason for Continuing Indwelling Catheter: Accurate Measurement of Urinary Output in Critically Ill Patients Urinary Catheter Date of Insertion: 03/16/22 Urinary Catheter Time of Insertion: 20:45 Data 03/20/22 00:54 03/20/22 00:54 Micro: Microbiology 03/17/22 11:35 Urine Culture - Final Urine,Clean Catch A&P Assessment and plan (1) Acute kidney injury: seen via telemedicine with assistance of RN at bedside Plan 1. Acute kidney injury, oliguric, decompensated heart failure. urine output i mproving- stop lasix gtt- once potasium improved- give bid lasix 2. Hypokalemia from lasix- replete k and mag as needed 3. Hypervolemic hyponatremia- improved w/ lasix -fluid restrict check chem 7 bid 4. Chronic kidney disease: baseline Cr 1.5 - 1.6 mg/dL small kidneys on renal us 5. met alkalosis from diuretics 6. monitor uric acid on allopurinol meds reviewed time spent 30 minutes Attestations Medical Necessity Statement*: anish, chf, htn, electrolyte abnormalitiies Time Spent in Patient Care: 16 - 35 minutes (>than 50% of time spent in counselling and/or direct pt care on unit) . Coding Level of Care Code Acute Broiler Chef Or Cook for renae Lynch Diagnoses Acute kidney injury N17.9
--- NOTE | 2022-03-20 10:26 | PC.NURSE ---
This nurse notified Dr. Bass of the runs of Ubaldo alegria, no n.o. at this time
--- NOTE | 2022-03-20 10:31 | PM.PN ---
Subjective Subjective: Patient is chest pain free. Continues diuresing well. Vitals/I&O/Wt Last Vital Signs Temp 97.7 F 03/20/22 00:00 Pulse 70 03/20/22 08:00 Resp 16 03/20/22 09:07 BP 97/58 03/20/22 08:00 Pulse Ox 94 03/20/22 09:07 O2 Del Method 03/20/22 07:30 O2 Flow Rate 2 03/20/22 07:30 FiO2 30 03/17/22 19:47 03/19/22 03/20/22 03/20/22 22:59 06:59 14:59 Intake Total 701.667 / 862.105 547.166 / 1409.271 Output Total 2200 / 5200 1500 / 6700 Balance -1498.333 / -4337.895 -952.834 / -5290.729 Physical Exam Narrative: GENERAL: Patient is drowsy NECK: No jugular vein distension. [] HEENT: No cyanosis. No icterus. No pallor. [] HEART: Regular S1 and S2. LUNGS: Diminished breath sounds ABDOMEN: Soft CENTRAL NERVOUS SYSTEM: Grossly nonfocal. [] EXTREMITIES: Lower extremities with 1+ edema bilaterally. Pulses palpable in the lower extremities, both dorsalis pedis and posterior tibial. [] Urinary Catheter Management: Yu: Cath Placed During This Visit: yes Reason for Continuing Indwelling Catheter: Accurate Measurement of Urinary Output in Critically Ill Patients Urinary Catheter Date of Insertion: 03/16/22 Urinary Catheter Time of Insertion: 20:45 Data 03/20/22 00:54 03/20/22 00:54 Micro: Microbiology 03/17/22 11:35 Urine Culture - Final Urine,Clean Catch A&P Assessment and plan (1) CHF exacerbation: (2) Hyponatremia: (3) Hyperkalemia: (4) ICD (implantable cardioverter-defibrillator), dual, in situ: (5) Troponin level elevated: Plan Patient had on and off VT episodes. Keep electrolytes in normal range Medical therapy for elevated troponin. We will discuss further with patient and family regarding possible ischemic work-up. Lasix drip can be switched to IV Lasix. Strict I&O's Thank you for involving us with care of this patient. We will continue to follow. Please call with questions. Attestations Medical Necessity Statement*: Care expected to cross 2 midnights. Coding Level of Care Code Acute Sort Line for Chg Fwd Diagnoses CHF exacerbation I50.9 Hyponatremia E87.1 Hyperkalemia E87.5 ICD (implantable cardioverter-defibrillator), dual, in situ Z95.810 Troponin level elevated R77.8
--- NOTE | 2022-03-20 12:42 | ECG_ITS ---
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 Measurements Intervals [place] Rate: 69 P: 220 IN: 235 QRS: -80 QRSD: 208 T: 108 QT: 520 QTc: 560 Interpretive Statements ELECTRONIC ATRIAL PACEMAKER LEFT AXIS DEVIATION [QRS AXIS < -30] INTRAVENTRICULAR CONDUCTION DELAY [130+ ms QRS DURATION] Compared to ECG 03/18/2022 16:39:44 No significant changes Electronically Signed On 03-21-2022 7:49:50 EXECUTOR OF ESTATE by Lidia Corona M.D. [id number]
--- NOTE | 2022-03-20 13:02 | PC.SOCIAL ---
Imm update Imm updated with patient at bedside with copy of page 2 provided. Patient verbalized understanding. Copy in chart initialed, dated and timed.
[2022-03-20] MEDS: cefTRIAXone 1,000 MG in sodium chloride 0.9% (plus) 50 ML 100 MG IV (13:12)
[2022-03-20] MEDS: ondansetron 2 mg/ML SDV 2 mL 4 MG IVP ×2 (13:15→20:15)
--- NOTE | 2022-03-20 13:18 | P.PN_ITS ---
Subjective Subjective: Patient was seen and examined this morning, denied any chest pain, continues to have robust urine output With Lasix drip, has been discontinued today, BUN and serum creatinine has continued to improve, Serum sodium has continued to improve, hyperkalemia corrected, LFT's not worsened, telemetry monitoring has shown episodes of wide-complex tachycardia. Electrolyte correction has been undertaken. Medications: Reviewed: Yes Medication Review Details: Generic Name Dose Route Start Last Admin Trade Name Freq PRN Reason Stop Dose Admin Acetaminophen 500 mg 03/16/22 00:12 03/18/22 02:13 Acetaminophen 50 0 Mg Tablet PO 500 mg Q4H PRN Administration fever Albuterol/Ipratrop ium 3 ml 03/16/22 00:45 03/20/22 08:01 Ipratropium-Albu terol 3 Ml Neb INHALATION 3 ml Q6H PRN Administration SHORTNESS OF AUREA TH Allopurinol 300 mg 03/16/22 09:00 03/19/22 08:33 Allopurinol 300 Mg Tablet PO 300 mg DAILY [facility] Administration Alprazolam 0.25 mg 03/16/22 15:36 03/17/22 18:46 Alprazolam 0.5 M g Tablet PO 0.25 mg BID PRN Administration ANXIETY Amiodarone HCl 400 mg 03/16/22 09:00 03/20/22 08:51 Amiodarone 200 M g Tablet PO 400 mg DAILY [facility] Administration Aspirin 81 mg 03/16/22 09:00 03/20/22 08:51 Aspirin 81 Mg Ch ew Tablet PO 81 mg DAILY [facility] Administration Atorvastatin Calci um 80 mg 03/16/22 09:00 03/19/22 08:33 Atorvastatin 40 Mg Tablet PO 80 mg DAILY [facility] Administration Heparin Sodium (Po rcine) 0 unit 03/18/22 10:09 03/20/22 00:45 Heparin 5,000 Un it/Ml Inj 1 Ml IV 1,100 unit PRN PRN Administration Heparin weight-ba se protocol Protocol Nitroglycerin/Dext letha 50 mg in 250 mls @ 0 mls/hr 03/18/22 10:15 03/19/22 00:[address] ip IV 0 mcg/min .Q0M MINGO 0 mls/hr Titration Protocol Per Protocol Heparin Sodium/Sod ium Chloride 25,000 unit in 50 0 mls @ 0 mls/hr 03/18/22 10:15 03/20/22 00:45 Heparin Drip IV 9.87 unit/kg/hr .Q0M MINGO 23 mls/hr Titration Protocol Per Protocol Ceftriaxone Sodium 1,000 mg/ 50 mls @ 100 mls/ hr 03/19/22 13:30 03/20/22 13:12 Sodium Chloride IV 100 mls/hr Q24H MINGO Administration Protocol Lorazepam 0.5 mg 03/17/22 08:14 03/19/22 21:16 Lorazepam 2 Mg/M l Inj 1 Ml IVP 0.5 mg Q4H PRN Administration ANXIETY Metoclopramide HCl 5 mg 03/19/22 10:17 03/19/22 10:28 Metoclopramide 5 Mg/Ml Sdv 2 Ml IVP 5 mg Q6H PRN Administration NAUSEA AND VOMITI NG Morphine Sulfate 0.5 mg 03/18/22 09:13 03/19/22 03:37 Morphine 4 Mg/Ml Sdv 1 Ml IVP 0.5 mg Q4H PRN Administration SEVERE PAIN Morphine Sulfate 15 mg 03/20/22 08:56 03/20/22 09:07 Morphine Ir 15 M g Tablet PO 15 mg Q6H PRN Administration MODERATE TO SEVER E PAIN Ondansetron HCl 4 mg 03/16/22 00:45 03/20/22 13:15 Ondansetron 2 Mg /Ml Sdv 2 Ml IVP 4 mg Q6H PRN Administration NAUSEA AND VOMITI NG Senna/Docusate Sod ium 1 tab 03/16/22 09:00 03/20/22 08:51 Sennosides-Docus ate Tablet PO 1 tab DAILY [facility] Administration Vitals/I&O/Wt Last Vital Signs Temp 97.7 F 03/20/22 00:00 Pulse 70 03/20/22 12:00 Resp 15 03/20/22 12:00 BP 114/62 03/20/22 12:00 Pulse Ox 93 03/20/22 12:00 O2 Del Method 03/20/22 07:30 O2 Flow Rate 2 03/20/22 07:30 FiO2 30 03/17/22 19:47 03/19/22 03/20/22 03/20/22 22:59 06:59 14:59 Intake Total 701.667 / 862.105 547.166 / 1409.271 240 / 240 Output Total 2200 / 5200 1500 / 6700 Balance -1498.333 / -4337.895 -952.834 / -5290.729 240 / 240 Physical Exam Resp: OTHER: Diminished air entry bilaterally Cardio: COMMON NORMALS: regular rate, regular rhythm, S1 normal heart sound present, S2 normal heart sound present, No gallops present (Cardio), No murmurs present (Cardio), No rub (Cardio) and Peripheral pulses 2+ throughout RATE: regular rate RHYTHM: regular rhythm HEART SOUNDS: S1 normal heart sound present and S2 normal heart sound present PERIPHERAL PULSES: Peripheral pulses 2+ throughout OTHER: Irregularly irregular rhythm, S1-S2 variable intensity GI: COMMON NORMALS: Normal to inspection, nondistended, normoactive bowel sounds present, Soft to palpation, non-tender, No hepatosplenomegaly present and no masses AUSCULTATION: Yes normoactive bowel sounds PALPATION: Yes Soft to palpation and Yes No hepatosplenomegaly present RECTAL EXAM: deferred Extremity: COMMON NORMALS: no clubbing, cyanosis or edema and no pedal edema NARRATIVE EXTREMITY EXAM: 2+ bilateral lower extremity pitting edema Urinary Catheter Management: Yu: Cath Placed During This Visit: yes Reason for Continuing Indwelling Catheter: Accurate Measurement of Urinary Output in Critically Ill Patients Urinary Catheter Date of Insertion: 03/16/22 Urinary Catheter Time of Insertion: 20:45 Data 03/20/22 00:54 03/20/22 00:54 Micro: Microbiology 03/17/22 11:35 Urine Culture - Final Urine,Clean Catch A&P Assessment and plan (1) CHF exacerbation: (2) ICD (implantable cardioverter-defibrillator), dual, in situ: (3) Chronic episodic atrial fibrillation: (4) Hyperkalemia: (5) Hyponatremia: Plan 65 year old female who has history of chronic atrial fibrillation, ischemic cardiomyopathy PCI to right coronary mixed systolic diastolic congestive heart failure status post AICD placement(EF 30%) was brought in with chief complaint of worsening shortness of breath as well as cough going on for the last few days extremely bad yesterday, she was being treated as an outpatient by her PCP with azithromycin Augmentin, and prednisone for possible bronchitis. Currently she is being managed for Assessment Decompensated heart failure: Impending cardiogenic shock Worsening YUDI on CKD: Baseline serum creatinine appears to be around 1.5-1.6: Possibly secondary CRS 2/2 decompensated heart failure NSTEMI : Severe hypervolemic hyponatremia Transaminitis: Possibly secondary to congestive hepatopathy secondary to decompensated heart failure.Will get ultrasound abdomen. Possibly hepatitis panel. Medication reviewed: She is on amiodarone. Currently also on Augmentin. Will DC Augmentin. We will hold allopurinol and atorvastatin. Will need monitoring for cholecystitis/not to forget acalculous cholecystitis. Currently total bilirubin is normal. History of chronic atrial fibrillation History of coronary artery disease Bronchitis Tendinopathy of rotator cuff: History of gout Plan: X-ray chest: Is showing diffuse pulmonary vascular congestion, elevated proBNP: 44844, Troponin trend:52-72- Serial EKG: Paced rhythm no acute ST-T wave changes Currently she is on Lasix drip running at 5 mg/hr, was on metolazone (thiazide like diuretic) 10 mg p.o. daily, has been discontinued due to hyponatremia. On heparin drip Was on nitro drip Monitor intake output charting Monitor electrolytes K>4 ,MG>2 Monitor daily weight Avoid nephrotoxic's Telemetry monitoring Continue amiodarone Continue aspirin Hold Eliquis Plan was to use tolvaptan currently not available Fluid restriction to 1200 cc Was on Augmentin: Has been discontinued due to transaminitis.Will switch to Rocephin. Nephrology on board Cardiology on board CODE STATUS: Full code DVT prophylaxis: Not needed on Eliquis Attestations Medical Necessity Statement*: Patient is here for management of decompensated heart failure. Time Spent in Patient Care: Greater than 35 minutes (>than 50% of time spent in counselling and/or direct pt care on unit) . Critical Care Time: The high probability of a clinically significant, sudden or life threatening deterioration of the patient's [] system(s) required my full and direct attention, intervention and personal management. The critical care time is as shown. This time is in addition to time spent performing any reported procedures but includes the following: [x] Data and vital sign review and interpretation [x] Patient assessment, examination and intervention [x] Documentation [x] Medication orders and management Critical Care Time (min): 40 Coding Level of Care Code Acute Adult Education Manager for Miguelina Lynch Diagnoses CHF exacerbation I50.9 ICD (implantable cardioverter-defibrillator), dual, in situ Z95.810 Chronic episodic atrial fibrillation I48.20 Hyperkalemia E87.5 Hyponatremia E87.1
--- NOTE | 2022-03-20 16:20 | PC.NURSE ---
3rd run of vtach this shift, patient felt palpitations and lethargic, Dr. Bass gave t.o. for Lidocaine drip
[2022-03-20] MEDS: lidocaine drip 2,000 MG/500 ML PREMIX 15 MG IV (16:26)
[2022-03-20] MEDS: heparin drip 25,000 UNIT/500 ML PREMIX 23 UNIT IV (16:43)
--- NOTE | 2022-03-20 16:53 | ECG_ITS ---
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 Measurements Intervals [place] Rate: 116 P: 207 SC: 99 QRS: 232 QRSD: 229 T: 57 QT: 446 QTc: 620 Interpretive Statements Ventricular tachycardia Compared to ECG 03/20/2022 12:42:19 Atrial-paced complex(es) or rhythm no longer present Left-axis deviation no longer present Electronically Signed On 03-21-2022 7:49:42 FARM LABORER by Lidia Corona M.D. [id number]
[2022-03-20 17:02] LABS: Albumin Level 3.8 g/dL (3.5-5.2); Alkaline Phosphatase 136 U/L (35-105); Anion Gap 14.2 (5-19); Aspartate Amino Transferase 388 U/L (0-32); Blood Urea Nitrogen 74 mg/dL (8-23); Calcium 9.8 mg/dL (8.5-10.5); Chloride 74 mmol/L (98-107); Globulin 3.2 g/dL (1.3-4.6); Glomerular Filtration Rate 23.5 mL/min (90-130); Glucose 192 mg/dL (65-115); Osmolality Calculated 289 mOsm/kg (285-295); Potassium 3.2 mmol/L (3.5-5.1); Sodium 126 mmol/L (136-145); Total Bilirubin 0.7 mg/dL (0.15-1.2)
[2022-03-20 17:12] LABS: Carbon Dioxide 41 mmol/L (22-29)
[2022-03-20 17:28] LABS: Alanine Aminotransferase 1042 U/L (0-33)
[2022-03-20] MEDS: acetaZOLAMIDE 250 mg Tablet PO (18:10)
[2022-03-20] MEDS: lidocaine 1% 5 ML in potassium chloride premix 100 ML 25 ML IV (18:10)
[2022-03-20 20:38] LABS: Partial Thromboplastin Time 71.3 SECONDS (23.9-36.7)
[2022-03-20] MEDS: morphine 4 mg/mL SDV 1 mL 0.5 MG IVP (22:29)
[2022-03-20] MEDS: LORazepam 2 mg/mL INJ 1 mL 0.5 MG IVP (23:53)
[2022-03-21] VITALS (58 sets, daily range): BP systolic 81–123; BP diastolic 44–92; PULSE 69–78; RESP 12–30; TEMP 36.4–36.8; O2SAT 91–97
[2022-03-21 03:04] LABS: Basophils % 0.1 %; Eosinophils % 0.4 %; Hematocrit 37.2 % (37.0-47.0); Hemoglobin 12.1 g/dL (11.5-15.3); Lymphocytes % 12.5 %; Mean Corpuscular HGB Conc 32.5 g/dL (30.0-36.0); Mean Corpuscular Hemoglobin 32.3 pg (28.0-34.0); Mean Corpuscular Volume 99.2 fl (81-99); Mean Platelet Volume 11.4 fL (7.4-10.4); Monocytes # 0.6 10^3/uL (0.2-0.9); Monocytes % 7.5 %; Neutrophils # 6.03 10^3/uL (1.8-7.7); Nucleated Red Blood Cells % 0 %; Platelet Count 156 10^3/cmm (130-400); Red Blood Count 3.75 10^6/uL (4.1-5.3); Red Cell Distribution Width 14.3 % (12.1-15.1); White Blood Count 7.6 10^3/uL (4.0-10.0)
[2022-03-21 03:25] LABS: Partial Thromboplastin Time 77.4 SECONDS (23.9-36.7)
[2022-03-21 03:33] LABS: Albumin Level 3.5 g/dL (3.5-5.2); Alkaline Phosphatase 121 U/L (35-105); Anion Gap 15.1 (5-19); Aspartate Amino Transferase 304 U/L (0-32); Blood Urea Nitrogen 60 mg/dL (8-23); Calcium 9.7 mg/dL (8.5-10.5); Carbon Dioxide 39 mmol/L (22-29); Chloride 75 mmol/L (98-107); Globulin 2.7 g/dL (1.3-4.6); Glomerular Filtration Rate 22.3 mL/min (90-130); Glucose 195 mg/dL (65-115); Magnesium 2.1 mg/dL (1.7-2.3); Osmolality Calculated 284 mOsm/kg (285-295); Phosphorus 3.8 mg/dL (2.5-4.5); Potassium 3.1 mmol/L (3.5-5.1); Sodium 126 mmol/L (136-145); Total Bilirubin 0.8 mg/dL (0.15-1.2); Total Protein 6.2 g/dL (6.6-8.7)
[2022-03-21 03:51] LABS: Alanine Aminotransferase 931 U/L (0-33)
[2022-03-21] MEDS: potassium chloride premix 100 ML 100 MEQ IV (04:59)
--- NOTE | 2022-03-21 06:50 | PC.NURSE ---
Bedside report completed with TEJINDER Hair
--- NOTE | 2022-03-21 07:09 | PM.PN ---
Subjective Subjective: had episodes of v tach overnight. less swollen. dec SOB. weak, and nausea. Medications: Reviewed: Yes Medication Review Details: Current Medications Acetaminophen (Acetaminophen 500 Mg Tablet) 500 mg PO Q4H PRN PRN Reason: fever Last Admin: 03/18/22 02:13 Dose: 500 mg Acetazolamide (Acetazolamide 250 Mg Tablet) 250 mg PO DAILY [facility] Last Admin: 03/20/22 18:10 Dose: 250 mg Albuterol/Ipratropium (Ipratropium-Albuterol 3 Ml Neb) 3 ml INHALATION Q6H PRN PRN Reason: SHORTNESS OF BREATH Last Admin: 03/20/22 08:01 Dose: 3 ml Allopurinol (Allopurinol 300 Mg Tablet) 300 mg PO DAILY [facility] Last Admin: 03/19/22 08:33 Dose: 300 mg Amiodarone HCl (Amiodarone 200 Mg Tablet) 400 mg PO DAILY [facility] Last Admin: 03/20/22 08:51 Dose: 400 mg Aspirin (Aspirin 81 Mg Chew Tablet) 81 mg PO DAILY [facility] Last Admin: 03/20/22 08:51 Dose: 81 mg Atorvastatin Calcium (Atorvastatin 40 Mg Tablet) 80 mg PO DAILY [facility] Last Admin: 03/19/22 08:33 Dose: 80 mg Diclofenac Sodium (Diclofenac 1% Topical Gel 100 Gm) 1 applic TOPICAL QID PRN PRN Reason: pain Heparin Sodium (Porcine) (Heparin 5,000 Unit/Ml Inj 1 Ml) 0 unit IV PRN PRN; Protocol PRN Reason: Heparin weight-base protocol Last Admin: 03/20/22 00:45 Dose: 1,100 unit Norepinephrine Bitartrate 4 mg (/ Dextrose) 254 mls @ 0 mls/hr IV .Q0M [facility]; Protocol Last Admin: 03/21/22 05:24 Dose: 4 mcg/min, 15.24 mls/hr Nitroglycerin/Dextrose (Nitroglycerin Drip) 50 mg in 250 mls @ 0 mls/hr IV .Q0M [facility]; Protocol Last Titration: 03/20/22 18:49 Dose: Infused Heparin Sodium/Sodium Chloride (Heparin Drip) 25,000 unit in 500 mls @ 0 mls/hr IV .Q0M [facility]; Protocol Last Admin: 03/20/22 16:43 Dose: 9.87 unit/kg/hr, 23 mls/hr Ceftriaxone Sodium 1,000 mg/ (Sodium Chloride) 50 mls @ 100 mls/hr IV Q24H [facility]; Protocol Last Infusion: 03/20/22 23:17 Dose: Infused Lidocaine HCl/Dextrose (Lidocaine Drip) 2,000 mg in 500 mls @ 30 mls/hr IV .[id number] [facility] Last Infusion: 03/21/22 04:45 Dose: 2 mg/min, 30 mls/hr Lorazepam (Lorazepam 2 Mg/Ml Inj 1 Ml) 0.5 mg IVP Q4H PRN PRN Reason: ANXIETY Last Admin: 03/20/22 23:53 Dose: 0.5 mg Metoclopramide HCl (Metoclopramide 5 Mg/Ml Sdv 2 Ml) 5 mg IVP Q6H PRN PRN Reason: NAUSEA AND VOMITING Last Admin: 03/19/22 10:28 Dose: 5 mg Morphine Sulfate (Morphine 4 Mg/Ml Sdv 1 Ml) 0.5 mg IVP Q4H PRN PRN Reason: SEVERE PAIN Last Admin: 03/20/22 22:29 Dose: 0.5 mg Morphine Sulfate (Morphine Ir 15 Mg Tablet) 15 mg PO Q6H PRN PRN Reason: MODERATE TO SEVERE PAIN Last Admin: 03/20/22 09:07 Dose: 15 mg Nitroglycerin (Nitroglycerin 0.4 Mg Sublingual Tablet) 0.4 mg SUBLINGUAL Q5M PRN PRN Reason: CHEST PAIN Ondansetron HCl (Ondansetron 2 Mg/Ml Sdv 2 Ml) 4 mg IVP Q6H PRN PRN Reason: NAUSEA AND VOMITING Last Admin: 03/20/22 20:15 Dose: 4 mg Senna/Docusate Sodium (Sennosides-Docusate Tablet) 1 tab PO DAILY [facility] Last Admin: 03/20/22 08:51 Dose: 1 tab Vitals/I&O/Wt Last Vital Signs Temp 97.7 F 03/21/22 00:00 Pulse 70 03/21/22 03:00 Resp 21 H 03/21/22 03:00 BP 106/61 03/21/22 03:00 Pulse Ox 93 03/21/22 03:00 O2 Del Method 03/21/22 00:00 O2 Flow Rate 3 03/21/22 00:00 FiO2 30 03/17/22 19:47 03/20/22 03/21/22 03/21/22 22:59 06:59 14:59 Intake Total 658.6 / 1198.767 398.75 / 1597.517 Output Total 2550 / 2550 Balance -1891.4 / -1351.233 398.75 / -952.483 Physical Exam Narrative: weak, ill appearing, NARD in bed vs noted heent- nc/at,eomi, anicteric neck supple lungs dull bases, improved air movement b/l heart reg abd soft, nt, nd, + bs ext b/l edema neuro- more awake, oriented x 2+ Urinary Catheter Management: Yu: Cath Placed During This Visit: yes Reason for Continuing Indwelling Catheter: Accurate Measurement of Urinary Output in Critically Ill Patients Urinary Catheter Date of Insertion: 03/16/22 Urinary Catheter Time of Insertion: 20:45 Data 03/21/22 02:38 03/21/22 02:38 A&P Assessment and plan (1) Acute kidney injury: seen via telemedicine with assistance of RN at bedside Plan 1. Acute kidney injury, oliguric, decompensated heart failure. urine output remains good off of stop lasix gtt 2. Hypokalemia from lasix- replete k and mag as needed 3. Hypervolemic hyponatremia- improved w/ lasix. na now stable -fluid restrict check chem 7 bid 4. Chronic kidney disease: baseline Cr 1.5 - 1.6 mg/dL small kidneys on renal us 5. met alkalosis from diuretics - cn give ns ivf bolus if okay with medicine 6. monitor uric acid on allopurinol 7. inc LFT's improving 8. v tch per crdiology/ medicine meds reviewed time spent 30 minutes Attestations Medical Necessity Statement*: anish, chf, v tach, electrolyte abnormalities Time Spent in Patient Care: 16 - 35 minutes (>than 50% of time spent in counselling and/or direct pt care on unit). Coding Level of Care Code Acute Traveling Inventory Associate for Miguelina Lynch Diagnoses Acute kidney injury N17.9
--- NOTE | 2022-03-21 08:02 | XR_ITS ---
WS: [id number] EXAMINATION: XR chest 1V portable [id number] REASON FOR EXAM: sob COMPARISON: 03/18/2022 ORDER DATE: 03/21/2022 8:24 AM TECHNIQUE: A single, portable frontal chest x-ray was obtained. X-RAY FINDINGS: Lungs: Bibasilar atelectasis. Pulmonary vascular congestion. Pleural spaces: Small bilateral pleural effusions possibly slightly increased on the right compared t o previous. No pneumothorax. Heart/Mediastinum: Cardiomegaly. Left-sided ICD noted Bones/joints: Unremarkable. XR/XR chest 1V portable [id number] IMPRESSION: Mild pulmonary vascular congestion with small bilateral pleural effusions possi elise slightly increased on the right compared with previous. bibasilar atelectasis.
[2022-03-21] MEDS: amiodarone 200 mg Tablet 400 MG PO (08:53)
[2022-03-21] MEDS: potassium chloride ER 20 mEq Tablet 40 MEQ PO (08:53)
[2022-03-21] MEDS: sennosides-docusate Tablet 1 TAB PO (08:53)
[2022-03-21] MEDS: acetaZOLAMIDE 250 mg Tablet PO (08:53)
[2022-03-21] MEDS: aspirin 81 mg Chew Tablet PO (08:53)
--- NOTE | 2022-03-21 10:12 | PM.PN ---
Subjective Subjective: Patient's rhythm has been stable since morning. On lidocaine gtt. denies chest pain. Vitals/I&O/Wt Last Vital Signs Temp 97.7 F 03/21/22 00:00 Pulse 78 03/21/22 08:00 Resp 16 03/21/22 08:00 BP 104/64 03/21/22 07:00 Pulse Ox 92 03/21/22 08:00 O2 Del Method 03/21/22 08:00 O2 Flow Rate 2 03/21/22 08:00 FiO2 30 03/17/22 19:47 03/20/22 03/21/22 03/21/22 22:59 06:59 14:59 Intake Total 658.6 / 1198.767 648.75 / 1847.517 Output Total 2550 / 2550 750 / 3300 Balance -1891.4 / -1351.233 -101.25 / -1452.483 Physical Exam Narrative: GENERAL: Patient is drowsy NECK: No jugular vein distension. [] HEENT: No cyanosis. No icterus. No pallor. [] HEART: Regular S1 and S2. LUNGS: Diminished breath sounds ABDOMEN: Soft CENTRAL NERVOUS SYSTEM: Grossly nonfocal. [] EXTREMITIES: Lower extremities with 1+ edema bilaterally. Pulses palpable in the lower extremities, both dorsalis pedis and posterior tibial. [] Urinary Catheter Management: Yu: Cath Placed During This Visit: yes Reason for Continuing Indwelling Catheter: Accurate Measurement of Urinary Output in Critically Ill Patients Urinary Catheter Date of Insertion: 03/16/22 Urinary Catheter Time of Insertion: 20:45 Data 03/21/22 02:38 03/21/22 02:38 A&P Assessment and plan (1) CHF exacerbation: (2) Hyponatremia: (3) Hyperkalemia: (4) ICD (implantable cardioverter-defibrillator), dual, in situ: (5) Troponin level elevated: Plan VT episodes have improved since starting lidocaine gtt. If no more VT episodes, lidocaine can be stopped in the evening and continue on amiodarone. LFTs have improved significantly. If continuing with VT episodes, lidocaine can be stopped and can start on mexiletine tomorrow. Diuresed well. Kidney function is improving. Continue IV diuresis Strict I&O's. Monitor electrolytes and keep K> and Mg> 2. Thank you for involving us with care of this patient. We will continue to follow. Please call with questions. Attestations Medical Necessity Statement*: Care expected to cross 2 midnights. Coding Level of Care Code Acute Appeals Court Associate Justice for Chg Fwd Diagnoses CHF exacerbation I50.9 Hyponatremia E87.1 Hyperkalemia E87.5 ICD (implantable cardioverter-defibrillator), dual, in situ Z95.810 Troponin level elevated R77.8
[2022-03-21 10:30] LABS: Partial Thromboplastin Time 68.8 SECONDS (23.9-36.7)
[2022-03-21] MEDS: morphine IR 15 mg Tablet PO (11:40)
--- NOTE | 2022-03-21 11:44 | PC.NURSE ---
Pt up in chair at bedside. Per charge nurse pt trying to crawl out of bed and demanding to get up. Per harge nurse Eugenia, kristin and hernandez Loja assisted pt to chair.
--- NOTE | 2022-03-21 11:45 | PC.CHAP ---
Pastoral Care Encounter/Spiritual Assessment Type of Contact [] Declined naturalization examiner visit [] Patient/Family/Request visit [] Outpatient visit [] Follow-up visit [] Physician referral [] Code/Alert [x] Routine visit [] Staff referral [] Actively dying [] Patient sleeping [] Family support [] [] Out of room [] Palliative care [] [] Receiving care in room [] Pre-surgical visit [] Trauma [] Long length of stay [x] ICU visit [x] Other: setting up in bed... eating Relational/Emotional Strength [] Patient feels connected with others/family/visitors/staff [] Distress [] Loneliness/isolation [] Abandonment Spirituality of Patient [] Person of Yanni [] Attends Yarsanism of their Yanni [] Believes in Prayer [] Reads Bible or Orthodoxy materials [] There are Spiritual issues to be addressed Pipe Coremaker Interventions [x] Prayer [] Active listening [] Non-anxious presence [] Spiritual/emotional support [] Crisis/trauma care [] Spiritual counseling [] Bereavement support [] Provided bereavement packet [] Provided Bible/devotional materials [] Provided toy/stuffed animal, coloring book to patient or family member [] Provided Communion [] Anointing/[place] [] Salvation [x] Completed spiritual assessment [] Other: Impact on Illness or Injury [] Angry [] Fearful [] Anxious [] Often cries [] Exhaustion [] Unable to work [] Unable to attend zoroastrianism [] Unable to walk/stand [] Unable to read [] Unable to drive [] Unable to eat/drink [] Unable to sleep [] Unable to be with family [] Patient intubated [] Other: Summary Time spent with patient
--- NOTE | 2022-03-21 12:11 | PC.NURSE ---
Pt to [facility]. NO BM NOted. Pt assisted back to chair in room.
[2022-03-21] MEDS: diclofenac 1% Topical Gel 100 gm 1 APPLIC TOPICAL ×2 (12:32→22:27)
[2022-03-21] MEDS: heparin drip 25,000 UNIT/500 ML PREMIX 23 UNIT IV (14:12)
[2022-03-21] MEDS: cefTRIAXone 1,000 MG in sodium chloride 0.9% (plus) 50 ML 100 MG IV (14:12)
--- NOTE | 2022-03-21 15:01 | PM.PN ---
Subjective Subjective: Patient was seen and examined this morning, she had intermittent episodes of V. tach, since yesterday. She was started on lidocaine drip, LFTs has been monitored, monitor for neurological toxicity. If patient continues to have episodes of VT: We will have to likely switch her to p.o. mexiletine. Continue to have good urine output, x-ray chest done this morning: Has shown improvement in pulm vascular congestion. Medications: Reviewed: Yes Medication Review Details: Generic Name Dose Route Start Last Admin Trade Name Freq PRN Reason Stop Dose Admin Acetaminophen 500 mg 03/16/22 00:12 03/18/22 02:13 Acetaminophen 50 0 Mg Tablet PO 500 mg Q4H PRN Administration fever Acetazolamide 250 mg 03/20/22 18:00 03/21/22 08:53 Acetazolamide 25 0 Mg Tablet PO 250 mg DAILY [facility] Administration Albuterol/Ipratrop ium 3 ml 03/16/22 00:45 03/20/22 08:01 Ipratropium-Albu terol 3 Ml Neb INHALATION 3 ml Q6H PRN Administration SHORTNESS OF AUREA TH Allopurinol 300 mg 03/16/22 09:00 03/19/22 08:33 Allopurinol 300 Mg Tablet PO 300 mg DAILY [facility] Administration Amiodarone HCl 400 mg 03/16/22 09:00 03/21/22 08:53 Amiodarone 200 M g Tablet PO 400 mg DAILY [facility] Administration Aspirin 81 mg 03/16/22 09:00 03/21/22 08:53 Aspirin 81 Mg Ch ew Tablet PO 81 mg DAILY [facility] Administration Atorvastatin Calci um 80 mg 03/16/22 09:00 03/19/22 08:33 Atorvastatin 40 Mg Tablet PO 80 mg DAILY [facility] Administration Diclofenac Sodium 1 applic 03/17/22 08:24 03/21/22 12:32 Diclofenac 1% To pical Gel 100 Gm TOPICAL 1 applic QID PRN Administration pain Heparin Sodium (Po rcine) 0 unit 03/18/22 10:09 03/20/22 00:45 Heparin 5,000 Un it/Ml Inj 1 Ml IV 1,100 unit PRN PRN Administration Heparin weight-ba se protocol Protocol Norepinephrine Bit artrate 4 mg 254 mls @ 0 mls/h r 03/17/22 12:00 03/21/22 05:24 / Dextrose IV 4 mcg/min .Q0M [facility] 15.24 mls/hr Administration Protocol Per Protocol Nitroglycerin/Dext letha 50 mg in 250 mls @ 0 mls/hr 03/18/22 10:15 03/20/22 18:[address] ip IV Infused .Q0M [facility] Titration Protocol Per Protocol Heparin Sodium/Sod ium Chloride 25,000 unit in 50 0 mls @ 0 mls/hr 03/18/22 10:15 03/21/22 14:12 Heparin Drip IV 9.87 unit/kg/hr .Q0M [facility] 23 mls/hr Administration Protocol Per Protocol Ceftriaxone Sodium 1,000 mg/ 50 mls @ 100 mls/ hr 03/19/22 13:30 03/21/22 14:12 Sodium Chloride IV 100 mls/hr Q24H [facility] Administration Protocol Lidocaine HCl/Dext letha 2,000 mg in 500 m ls @ 30 mls/hr 03/20/22 16:30 03/21/22 04:45 Lidocaine Drip IV 2 mg/min .[id number] [facility] 30 mls/hr Infusion 2 MG/MIN Metoclopramide HCl 5 mg 03/19/22 10:17 03/19/22 10:28 Metoclopramide 5 Mg/Ml Sdv 2 Ml IVP 5 mg Q6H PRN Administration NAUSEA AND VOMITI NG Morphine Sulfate 0.5 mg 03/18/22 09:13 03/20/22 22:29 Morphine 4 Mg/Ml Sdv 1 Ml IVP 0.5 mg Q4H PRN Administration SEVERE PAIN Morphine Sulfate 15 mg 03/20/22 08:56 03/21/22 11:40 Morphine Ir 15 M g Tablet PO 15 mg Q6H PRN Administration MODERATE TO SEVER E PAIN Ondansetron HCl 4 mg 03/16/22 00:45 03/20/22 20:15 Ondansetron 2 Mg /Ml Sdv 2 Ml IVP 4 mg Q6H PRN Administration NAUSEA AND VOMITI NG Potassium Chloride 40 meq 03/21/22 09:00 03/21/22 08:53 Potassium Chlori de Er 20 Meq Table t PO 40 meq DAILY [facility] Administration Senna/Docusate Sod ium 1 tab 03/16/22 09:00 03/21/22 08:53 Sennosides-Docus ate Tablet PO 1 tab DAILY [facility] Administration Vitals/I&O/Wt Last Vital Signs Temp 98.2 F 03/21/22 08:00 Pulse 71 03/21/22 14:00 Resp 17 03/21/22 14:00 BP 104/67 03/21/22 14:00 Pulse Ox 95 03/21/22 14:00 O2 Del Method 03/21/22 14:00 O2 Flow Rate 3 03/21/22 14:00 FiO2 30 03/17/22 19:47 03/21/22 03/21/22 03/21/22 06:59 14:59 22:59 Intake Total 648.75 / 3934.460 5446.117 / 1044.117 Output Total 750 / 3300 Balance -101.25 / -9850.782 6655.117 / 1044.117 Physical Exam Resp: OTHER: Diminished air entry bilaterally Cardio: COMMON NORMALS: regular rate, regular rhythm, S1 normal heart sound present, S2 normal heart sound present, No gallops present (Cardio), No murmurs present (Cardio), No rub (Cardio) and Peripheral pulses 2+ throughout RATE: regular rate RHYTHM: regular rhythm HEART SOUNDS: S1 normal heart sound present and S2 normal heart sound present PERIPHERAL PULSES: Peripheral pulses 2+ throughout OTHER: Irregularly irregular rhythm, S1-S2 variable intensity GI: COMMON NORMALS: Normal to inspection, nondistended, normoactive bowel sounds present, Soft to palpation, non-tender, No hepatosplenomegaly present and no masses AUSCULTATION: Yes normoactive bowel sounds PALPATION: Yes Soft to palpation and Yes No hepatosplenomegaly present RECTAL EXAM: deferred Extremity: COMMON NORMALS: no clubbing, cyanosis or edema and no pedal edema NARRATIVE EXTREMITY EXAM: 2+ bilateral lower extremity pitting edema Urinary Catheter Management: Yu: Cath Placed During This Visit: yes Reason for Continuing Indwelling Catheter: Accurate Measurement of Urinary Output in Critically Ill Patients Urinary Catheter Date of Insertion: 03/16/22 Urinary Catheter Time of Insertion: 20:45 Data 03/21/22 02:38 03/21/22 02:38 A&P Assessment and plan (1) CHF exacerbation: (2) ICD (implantable cardioverter-defibrillator), dual, in situ: (3) Chronic episodic atrial fibrillation: (4) Hyperkalemia: (5) Hyponatremia: Plan 65 year old female who has history of chronic atrial fibrillation, ischemic cardiomyopathy PCI to right coronary mixed systolic diastolic congestive heart failure status post AICD placement(EF 30%) was brought in with chief complaint of worsening shortness of breath as well as cough going on for the last few days extremely bad yesterday, she was being treated as an outpatient by her PCP with azithromycin Augmentin, and prednisone for possible bronchitis. Currently she is being managed for Assessment: Ventricular tachycardia: Decompensated heart failure: Impending cardiogenic shock Worsening YUDI on CKD: Baseline serum creatinine appears to be around 1.5-1.6: Possibly secondary CRS 2/2 decompensated heart failure NSTEMI : Severe hypervolemic hyponatremia Transaminitis: Possibly secondary to congestive hepatopathy secondary to decompensated heart failure.Will get ultrasound abdomen. Possibly hepatitis panel. Medication reviewed: She is on amiodarone. Currently also on Augmentin. Will DC Augmentin. We will hold allopurinol and atorvastatin. Will need monitoring for cholecystitis/not to forget acalculous cholecystitis.Currently total bilirubin is normal. History of chronic atrial fibrillation History of coronary artery disease Bronchitis Tendinopathy of rotator cuff: History of gout Plan: X-ray chest: Is showing diffuse pulmonary vascular congestion, elevated proBNP: [id number], Troponin trend:52-72- Serial EKG: Paced rhythm no acute ST-T wave changes Currently she is on Lasix drip running at 5 mg/hr, was on metolazone (thiazide like diuretic) 10 mg p.o. daily, has been discontinued due to hyponatremia. On heparin drip Was on nitro drip Monitor intake output charting Monitor electrolytes K>4 ,MG>2 Monitor daily weight Avoid nephrotoxic's Telemetry monitoring Continue amiodarone Continue aspirin Hold Eliquis Plan was to use tolvaptan currently not available Fluid restriction to 1200 cc Was on Augmentin: Has been discontinued due to transaminitis.Will switch to Rocephin. Nephrology on board Cardiology on board CODE STATUS: Full code DVT prophylaxis: Not needed on Eliquis Attestations Medical Necessity Statement*: Patient is still in hospital management of heart failure, VT Time Spent in Patient Care: Greater than 35 minutes (>than 50% of time spent in counselling and/or direct pt care on unit). Critical Care Time: The high probability of a clinically significant, sudden or life threatening deterioration of the patient's [] system(s) required my full and direct attention, intervention and personal management. The critical care time is as shown. This time is in addition to time spent performing any reported procedures but includes the following: [x] Data and vital sign review and interpretation [x] Patient assessment, examination and intervention [x] Documentation [x] Medication orders and management Critical Care Time (min): 60 Coding Level of Care Code Acute Product Blending Supervisor for g Fwd Diagnoses CHF exacerbation I50.9 ICD (implantable cardioverter-defibrillator), dual, in situ Z95.810 Chronic episodic atrial fibrillation I48.20 Hyperkalemia E87.5 Hyponatremia E87.1
[2022-03-21] MEDS: lidocaine drip 2,000 MG/500 ML PREMIX 30 MG IV (16:15)
[2022-03-21 17:13] LABS: Albumin Level 3.7 g/dL (3.5-5.2); Alkaline Phosphatase 124 U/L (35-105); Aspartate Amino Transferase 235 U/L (0-32); Blood Urea Nitrogen 62 mg/dL (8-23); Calcium 9.9 mg/dL (8.5-10.5); Carbon Dioxide 37 mmol/L (22-29); Chloride 78 mmol/L (98-107); Globulin 3.2 g/dL (1.3-4.6); Glomerular Filtration Rate 24.9 mL/min (90-130); Glucose 184 mg/dL (65-115); Osmolality Calculated 282 mOsm/kg (285-295); Sodium 125 mmol/L (136-145); Total Bilirubin 0.7 mg/dL (0.15-1.2); Total Protein 6.9 g/dL (6.6-8.7)
[2022-03-21 17:26] LABS: Alanine Aminotransferase 801 U/L (0-33)
[2022-03-21] MEDS: enoxaparin 120 mg/0.8 mL Syringe 110 MG SUBCUT (18:07)
--- NOTE | 2022-03-21 18:23 | PC.NURSE ---
Shift Note: NO ectopy noted throughout this shift. She has been restless this am and early afternoon, requiring position changes at the maximum every half hour. She has been up to chair for about an hour. She has ate about half of all her meals. Per pt she felt very grungy, bathing provided first thing this shift. She c/o of pain, but could not pinpoint it today, MSIR admin then Diflucan applied to spine and she rested better afterwards. Heparin gtt stopped this afternoon and therapuetic dose of Lovenox ordered daily and given Frequent safety and comfort rounds continue. Orders and/or nursing care completed as indicated. Patient monitored for response to intervention and treatment(s). Education provided includes Diflucan, MSIR, Lidocaine, progress and plan of care. Patient and/or advertising sales representative verbalized understadning of plan of care and medications discussed.. Will continue to monitor.
--- NOTE | 2022-03-21 19:06 | PC.NURSE ---
Bedside report completed with TEJINDER Denney
[2022-03-21 21:35] LABS: Glucose Point of Care 184 mg/dL (70-110)
[2022-03-21] MEDS: morphine 4 mg/mL SDV 1 mL 0.5 MG IVP (23:20)
[2022-03-22] VITALS (38 sets, daily range): BP systolic 67–116; BP diastolic 41–75; PULSE 69–72; RESP 12–19; TEMP 35.9–36.6; O2SAT 91–97
[2022-03-22 02:43] LABS: Basophils % 0.1 %; Eosinophils # 0.1 10^3/uL (0.0-0.8); Eosinophils % 0.9 %; Hematocrit 36.7 % (37.0-47.0); Lymphocytes # 1.1 10^3/uL (0.8-4.8); Lymphocytes % 11.9 %; Mean Corpuscular HGB Conc 32.7 g/dL (30.0-36.0); Mean Corpuscular Hemoglobin 32.1 pg (28.0-34.0); Mean Corpuscular Volume 98.1 fl (81-99); Mean Platelet Volume 11.3 fL (7.4-10.4); Monocytes # 0.8 10^3/uL (0.2-0.9); Monocytes % 8.4 %; Neutrophils # 6.94 10^3/uL (1.8-7.7); Nucleated Red Blood Cells % 0 %; Platelet Count 156 10^3/cmm (130-400); Red Blood Count 3.74 10^6/uL (4.1-5.3); Red Cell Distribution Width 14.3 % (12.1-15.1); White Blood Count 8.9 10^3/uL (4.0-10.0)
[2022-03-22 03:04] LABS: Alanine Aminotransferase 647 U/L (0-33); Albumin Level 3.7 g/dL (3.5-5.2); Alkaline Phosphatase 113 U/L (35-105); Aspartate Amino Transferase 159 U/L (0-32); Blood Urea Nitrogen 58 mg/dL (8-23); Calcium 10.1 mg/dL (8.5-10.5); Carbon Dioxide 34 mmol/L (22-29); Chloride 81 mmol/L (98-107); Globulin 2.7 g/dL (1.3-4.6); Glomerular Filtration Rate 26.4 mL/min (90-130); Glucose 165 mg/dL (65-115); Osmolality Calculated 284 mOsm/kg (285-295); Sodium 127 mmol/L (136-145); Total Bilirubin 0.7 mg/dL (0.15-1.2); Total Protein 6.4 g/dL (6.6-8.7)
[2022-03-22 03:13] LABS: Anion Gap 15.7 (5-19); Potassium 3.7 mmol/L (3.5-5.1)
--- NOTE | 2022-03-22 06:40 | PC.NURSE ---
Bedside report completed with TEJINDER Denney.
[2022-03-22] MEDS: diclofenac 1% Topical Gel 100 gm 1 APPLIC TOPICAL ×2 (08:24→20:38)
[2022-03-22] MEDS: potassium chloride ER 20 mEq Tablet 40 MEQ PO (08:25)
[2022-03-22] MEDS: sennosides-docusate Tablet 1 TAB PO (08:25)
[2022-03-22] MEDS: aspirin 81 mg Chew Tablet PO (08:25)
[2022-03-22] MEDS: acetaZOLAMIDE 250 mg Tablet PO (08:25)
[2022-03-22] MEDS: amiodarone 200 mg Tablet 400 MG PO (08:25)
[2022-03-22] MEDS: lidocaine 1% 5 ML in potassium chloride premix 100 ML 50 ML IV (09:57)
--- NOTE | 2022-03-22 10:07 | PC.NURSE ---
Lidocaine gtt off, titrated off as ordered.
--- NOTE | 2022-03-22 11:46 | P.PN_ITS ---
Subjective Subjective: Patient was seen and examined this morning, shortness of breath is improving, no ventricular tachycardia seen on telemetry, will wean off lidocaine drip, continue with p.o. amiodarone, LFT is improving, kidney function is improving, continue to make good urine output, serum sodium is improving. We will get physical therapy on board, encourage patient to be out of bed. Medications: Reviewed: Yes Medication Review Details: Generic Name Dose Route Start Last Admin Trade Name Freq PRN Reason Stop Dose Admin Acetaminophen 500 mg 03/16/22 00:12 03/18/22 02:13 Acetaminophen 50 0 Mg Tablet PO 500 mg Q4H PRN Administration fever Acetazolamide 250 mg 03/20/22 18:00 03/21/22 08:53 Acetazolamide 25 0 Mg Tablet PO 250 mg DAILY MINGO Administration Albuterol/Ipratrop ium 3 ml 03/16/22 00:45 03/20/22 08:01 Ipratropium-Albu terol 3 Ml Neb INHALATION 3 ml Q6H PRN Administration SHORTNESS OF AUREA TH Allopurinol 300 mg 03/16/22 09:00 03/19/22 08:33 Allopurinol 300 Mg Tablet PO 300 mg DAILY MINGO Administration Amiodarone HCl 400 mg 03/16/22 09:00 03/21/22 08:53 Amiodarone 200 M g Tablet PO 400 mg DAILY MINGO Administration Aspirin 81 mg 03/16/22 09:00 03/21/22 08:53 Aspirin 81 Mg Ch ew Tablet PO 81 mg DAILY MINGO Administration Atorvastatin Calci um 80 mg 03/16/22 09:00 03/19/22 08:33 Atorvastatin 40 Mg Tablet PO 80 mg DAILY MINGO Administration Diclofenac Sodium 1 applic 03/17/22 08:24 03/21/22 12:32 Diclofenac 1% To pical Gel 100 Gm TOPICAL 1 applic QID PRN Administration pain Heparin Sodium (Po rcine) 0 unit 03/18/22 10:09 03/20/22 00:45 Heparin 5,000 Un it/Ml Inj 1 Ml IV 1,100 unit PRN PRN Administration Heparin weight-ba se protocol Protocol Norepinephrine Bit artrate 4 mg 254 mls @ 0 mls/h r 03/17/22 12:00 03/21/22 05:24 / Dextrose IV 4 mcg/min .Q0M MINGO 15.24 mls/hr Administration Protocol Per Protocol Nitroglycerin/Dext letha 50 mg in 250 mls @ 0 mls/hr 03/18/22 10:15 03/20/22 18:[address] ip IV Infused .Q0M MINGO Titration Protocol Per Protocol Heparin Sodium/Sod ium Chloride 25,000 unit in 50 0 mls @ 0 mls/hr 03/18/22 10:15 03/21/22 14:12 Heparin Drip IV 9.87 unit/kg/hr .Q0M MINGO 23 mls/hr Administration Protocol Per Protocol Ceftriaxone Sodium 1,000 mg/ 50 mls @ 100 mls/ hr 03/19/22 13:30 03/21/22 14:12 Sodium Chloride IV 100 mls/hr Q24H MINGO Administration Protocol Lidocaine HCl/Dext letha 2,000 mg in 500 m ls @ 30 mls/hr 03/20/22 16:30 03/21/22 04:45 Lidocaine Drip IV 2 mg/min .[id number] MINGO 30 mls/hr Infusion 2 MG/MIN Metoclopramide HCl 5 mg 03/19/22 10:17 03/19/22 10:28 Metoclopramide 5 Mg/Ml Sdv 2 Ml IVP 5 mg Q6H PRN Administration NAUSEA AND VOMITI NG Morphine Sulfate 0.5 mg 03/18/22 09:13 03/20/22 22:29 Morphine 4 Mg/Ml Sdv 1 Ml IVP 0.5 mg Q4H PRN Administration SEVERE PAIN Morphine Sulfate 15 mg 03/20/22 08:56 03/21/22 11:40 Morphine Ir 15 M g Tablet PO 15 mg Q6H PRN Administration MODERATE TO SEVER E PAIN Ondansetron HCl 4 mg 03/16/22 00:45 03/20/22 20:15 Ondansetron 2 Mg /Ml Sdv 2 Ml IVP 4 mg Q6H PRN Administration NAUSEA AND VOMITI NG Potassium Chloride 40 meq 03/21/22 09:00 03/21/22 08:53 Potassium Chlori de Er 20 Meq Table t PO 40 meq DAILY MINGO Administration Senna/Docusate Sod ium 1 tab 03/16/22 09:00 03/21/22 08:53 Sennosides-Docus ate Tablet PO 1 tab DAILY MINGO Administration Vitals/I&O/Wt Last Vital Signs Temp 98.0 F 12/07/22 22:00 Pulse 70 03/22/22 10:00 Resp 17 03/22/22 10:00 BP 85/55 03/22/22 10:00 Pulse Ox 96 03/22/22 10:00 O2 Del Method 03/22/22 10:00 O2 Flow Rate 2 03/22/22 10:00 FiO2 30 03/17/22 19:47 03/21/22 03/22/22 03/22/22 22:59 06:59 14:59 Intake Total 804.914 / 1849.031 100 / 1949.031 895.0 / 895.0 Output Total 1000 / 1000 800 / 1800 Balance -195.086 / 849.031 -700 / 149.031 895.0 / 895.0 Physical Exam Resp: OTHER: Diminished air entry bilaterally, minimal expiratory wheezing Cardio: COMMON NORMALS: regular rate, regular rhythm, S1 normal heart sound present, S2 normal heart sound present, No gallops present (Cardio), No murmurs present (Cardio), No rub (Cardio) and Peripheral pulses 2+ throughout RATE: regular rate RHYTHM: regular rhythm HEART SOUNDS: S1 normal heart sound present and S2 normal heart sound present PERIPHERAL PULSES: Peripheral pulses 2+ throughout OTHER: Irregularly irregular rhythm, S1-S2 variable intensity GI: COMMON NORMALS: Normal to inspection, nondistended, normoactive bowel sounds present, Soft to palpation, non-tender, No hepatosplenomegaly present and no masses AUSCULTATION: Yes normoactive bowel sounds PALPATION: Yes Soft to palpation and Yes No hepatosplenomegaly present RECTAL EXAM: deferred Extremity: COMMON NORMALS: no clubbing, cyanosis or edema and no pedal edema NARRATIVE EXTREMITY EXAM: 2+ bilateral lower extremity pitting edema Urinary Catheter Management: Yu: Cath Placed During This Visit: yes Reason for Continuing Indwelling Catheter: Accurate Measurement of Urinary Output in Critically Ill Patients Urinary Catheter Date of Insertion: 03/16/22 Urinary Catheter Time of Insertion: 20:45 Data 03/22/22 02:30 03/22/22 02:30 A&P Assessment and plan (1) CHF exacerbation: (2) ICD (implantable cardioverter-defibrillator), dual, in situ: (3) Chronic episodic atrial fibrillation: (4) Hyperkalemia: (5) Hyponatremia: Plan 65 year old female who has history of chronic atrial fibrillation, ischemic cardiomyopathy PCI to right coronary mixed systolic diastolic congestive heart failure status post AICD placement(EF 30%) was brought in with chief complaint of worsening shortness of breath as well as cough going on for the last few days extremely bad yesterday, she was being treated as an outpatient by her PCP with azithromycin Augmentin, and prednisone for possible bronchitis. Currently she is being managed for Assessment: Ventricular tachycardia: Decompensated heart failure: Impending cardiogenic shock Worsening YUDI on CKD: Baseline serum creatinine appears to be around 1.5-1.6: Possibly secondary CRS 2/2 decompensated heart failure NSTEMI : Likely type II NSTEMI in the setting of renal failure and decompensated heart failure. Severe hypervolemic hyponatremia Transaminitis: Possibly secondary to congestive hepatopathy secondary to decompensated heart failure.Will get ultrasound abdomen. Possibly hepatitis panel. Medication reviewed: She is on amiodarone. Currently also on Augmentin. Will DC Augmentin. We will hold allopurinol and atorvastatin. Will need monitoring for cholecystitis/not to forget acalculous chol ecystitis.Currently total bilirubin is normal. History of chronic atrial fibrillation History of coronary artery disease Bronchitis Tendinopathy of rotator cuff: History of gout Plan: X-ray chest: Is showing diffuse pulmonary vascular congestion, elevated proBNP: 30643, Ultrasound abdomen: Mild hepatic steatosis Troponin trend:52-72- Serial EKG: Paced rhythm no acute ST-T wave changes Was on Lasix drip running at 5 mg/hr, was on metolazone (thiazide like diuretic) 10 mg p.o. daily, has been discontinued due to hyponatremia. Was On heparin drip: Has been switched to therapeutic Lovenox renally dosed. Was on nitro drip Monitor intake output charting Monitor electrolytes K>4 ,MG>2 Monitor daily weight Avoid nephrotoxic's Telemetry monitoring Continue amiodarone Was on lidocaine drip: Has been weaned off Continue aspirin Hold Eliquis Plan was to use tolvaptan currently not available Fluid restriction to 1200 cc Was on Augmentin: Has been discontinued due to transaminitis.Will switch to Rocephin. Nephrology on board Cardiology on board CODE STATUS: Full code DVT prophylaxis: Not needed on Eliquis Attestations Medical Necessity Statement*: Needs to be in hospital for management of heart failure, YUDI. Time Spent in Patient Care: Greater than 35 minutes (>than 50% of time spent in counselling and/or direct pt care on unit) . Coding Level of Care Code Acute Ballast Regulator Operator for [facility]g Fwd Diagnoses CHF exacerbation I50.9 ICD (implantable cardioverter-defibrillator), dual, in situ Z95.810 Chronic episodic atrial fibrillation I48.20 Hyperkalemia E87.5 Hyponatremia E87.1
[2022-03-22] MEDS: morphine IR 15 mg Tablet PO ×2 (12:15→20:37)
--- NOTE | 2022-03-22 12:17 | PM.PN ---
Subjective Subjective: alert, feeling a little worse than yesterday Vitals/I&O/Wt Last Vital Signs Temp 98.0 F 03/21/22 22:00 Pulse 70 03/22/22 10:00 Resp 17 03/22/22 10:00 BP 85/55 03/22/22 10:00 Pulse Ox 96 03/22/22 10:00 O2 Del Method 03/22/22 10:00 O2 Flow Rate 2 03/22/22 10:00 FiO2 30 03/17/22 19:47 03/21/22 03/22/22 03/22/22 22:59 06:59 14:59 Intake Total 804.914 / 1849.031 100 / 1949.031 895.0 / 895.0 Output Total 1000 / 1000 800 / 1800 Balance -195.086 / 849.031 -700 / 149.031 895.0 / 895.0 Physical Exam Const: COMMON NORMALS: alert Resp: OTHER: rhonchi Cardio: COMMON NORMALS: regular rate and regular rhythm RATE: regular rate RHYTHM: regular rhythm Extremity: GENERAL: No edema Neuro: SENSORIUM/ORIENTATION: Yes alert Urinary Catheter Management: Yu: Cath Placed During This Visit: yes Reason for Continuing Indwelling Catheter: Accurate Measurement of Urinary Output in Critically Ill Patients Urinary Catheter Date of Insertion: 03/16/22 Urinary Catheter Time of Insertion: 20:45 Data 03/22/22 02:30 03/22/22 02:30 A&P Assessment and plan (1) Acute kidney injury: seen via telemedicine with assistance of RN at bedside Plan 1. Acute kidney injury, good urine output, BUN/Cr slowly improving 2. decompensated heart failure. urine output remains good off of stop lasix gtt 3. Hypokalemia, metabolic alkalosis, on acetamzolamide, improving 4. Hypervolemic hyponatremia- improving, continue fluid restriction 5. Chronic kidney disease: baseline Cr 1.5 - 1.6 mg/dL, small kidneys on renal us Recommend: continue current medications Attestations Medical Necessity Statement*: see above Time Spent in Patient Care: 16 - 35 minutes Coding Level of Care Code Acute Distribution Center Associate for [facility] Fwd Diagnoses Acute kidney injury N17.9
[2022-03-22] MEDS: ipratropium-albuterol 3 mL Neb INHALATION (13:24)
[2022-03-22] MEDS: cefTRIAXone 1,000 MG in sodium chloride 0.9% (plus) 50 ML 100 MG IV (13:35)
--- NOTE | 2022-03-22 13:50 | PC.NURSE ---
AICD integration completed, as ordered.
--- NOTE | 2022-03-22 14:15 | PM.PN ---
Subjective Subjective: This patient is admitted to the hospital with a features of congestive heart failure. Apparently she developed features of acute kidney injury, possible ischemic liver. She also had episodes of a complex tachycardia. She was started on lidocaine. Currently being tapered off Medications: Medication Review Details: Current Medications Acetaminophen (Acetaminophen 500 Mg Tablet) 500 mg PO Q4H PRN PRN Reason: fever Last Admin: 03/18/22 02:13 Dose: 500 mg Acetazolamide (Acetazolamide 250 Mg Tablet) 250 mg PO DAILY MINGO Last Admin: 03/22/22 08:25 Dose: 250 mg Albuterol/Ipratropium (Ipratropium-Albuterol 3 Ml Neb) 3 ml INHALATION Q6H PRN PRN Reason: SHORTNESS OF BREATH Last Admin: 03/22/22 13:24 Dose: 3 ml Allopurinol (Allopurinol 300 Mg Tablet) 300 mg PO DAILY MINGO Last Admin: 03/19/22 08:33 Dose: 300 mg Amiodarone HCl (Amiodarone 200 Mg Tablet) 400 mg PO DAILY [facility] Last Admin: 03/22/22 08:25 Dose: 400 mg Aspirin (Aspirin 81 Mg Chew Tablet) 81 mg PO DAILY MINGO Last Admin: 03/22/22 08:25 Dose: 81 mg Atorvastatin Calcium (Atorvastatin 40 Mg Tablet) 80 mg PO DAILY MINGO Last Admin: 03/19/22 08:33 Dose: 80 mg Diclofenac Sodium (Diclofenac 1% Topical Gel 100 Gm) 1 applic TOPICAL QID PRN PRN Reason: pain Last Admin: 03/22/22 08:24 Dose: 1 applic Enoxaparin Sodium (Enoxaparin 120 Mg/0.8 Ml Syringe) 110 mg SUBCUT Q24H MINGO Last Admin: 03/21/22 18:07 Dose: 110 mg Norepinephrine Bitartrate 4 mg (/ Dextrose) 254 mls @ 0 mls/hr IV .Q0M MINGO; Protocol Last Titration: 03/21/22 19:00 Dose: 0 mcg/min, 0 mls/hr Nitroglycerin/Dextrose (Nitroglycerin Drip) 50 mg in 250 mls @ 0 mls/hr IV .Q0M MINGO; Protocol Last Titration: 03/20/22 18:49 Dose: Infused Ceftriaxone Sodium 1,000 mg/ (Sodium Chloride) 50 mls @ 100 mls/hr IV Q24H MINGO; Protocol Last Infusion: 03/22/22 14:13 Dose: Infused Lidocaine HCl/Dextrose (Lidocaine Drip) 2,000 mg in 500 mls @ 30 mls/hr IV .[id number] [facility] Last Admin: 03/22/22 11:04 Dose: Not Given Methylprednisolone Sodium Succinate (Methylprednisolone Sod Succ 40 Mg/Ml Inj) 40 mg IVP Q12H [facility] Last Admin: 03/22/22 12:16 Dose: 40 mg Metoclopramide HCl (Metoclopramide 5 Mg/Ml Sdv 2 Ml) 5 mg IVP Q6H PRN PRN Reason: NAUSEA AND VOMITING Last Admin: 03/19/22 10:28 Dose: 5 mg Morphine Sulfate (Morphine Ir 15 Mg Tablet) 15 mg PO Q6H PRN PRN Reason: MODERATE TO SEVERE PAIN Last Admin: 03/22/22 12:15 Dose: 15 mg Nitroglycerin (Nitroglycerin 0.4 Mg Sublingual Tablet) 0.4 mg SUBLINGUAL Q5M PRN PRN Reason: CHEST PAIN Ondansetron HCl (Ondansetron 2 Mg/Ml Sdv 2 Ml) 4 mg IVP Q6H PRN PRN Reason: NAUSEA AND VOMITING Last Admin: 03/20/22 20:15 Dose: 4 mg Potassium Chloride (Potassium Chloride Er 20 Meq Tablet) 40 meq PO DAILY [facility] Last Admin: 03/22/22 08:25 Dose: 40 meq Senna/Docusate Sodium (Sennosides-Docusate Tablet) 1 tab PO DAILY [facility] Last Admin: 03/22/22 08:25 Dose: 1 tab Vitals/I&O/Wt Last Vital Signs Temp 98.0 F 03/21/22 22:00 Pulse 70 03/22/22 13:27 Resp 16 03/22/22 13:20 BP 104/63 03/22/22 12:30 Pulse Ox 94 03/22/22 13:20 O2 Del Method 03/22/22 13:20 O2 Flow Rate 2 03/22/22 13:20 FiO2 30 03/17/22 19:47 03/21/22 03/22/22 03/22/22 22:59 06:59 14:59 Intake Total 804.914 / 1849.031 100 / 1949.031 945.0 / 945.0 Output Total 1000 / 1000 800 / 1800 Balance -195.086 / 849.031 -700 / 149.031 945.0 / 945.0 Physical Exam Narrative: GENERAL: The patient is alert and oriented times two.Not in any acute distress. Appears very lethargic and also somewhat short of breath HEENT: No significant pallor, icterus or lymphadenopathy.Oral cavity: There are no mucous membrane lesions. NECK: Trachea appears to be central. No masses noted. No JVD or thyromegaly appreciated. RESPIRATORY: Chest is symmetrical. No intercostals muscle retraction or any accessory muscle activation. There is no chest wall tenderness. Breath sounds are heard bilaterally. No rales or rhonchi heard. No evidence of any consolidation. BREASTS: Deferred. HEART: The heart sounds are normal. No S3 or S4. Short systolic murmur in the left sternal border. No pericardial rub ABDOMEN: No vessel pulsations or distention. No tenderness. No organomegaly appreciated. Bowel sounds are normally heard. : Deferred. RECTAL: Deferred. LYMPHATIC: No lymphadenopathy noted in the neck. EXTREMITIES: Trace edema with no cyanosis. No clubbing. MUSCULOSKELETAL: No acute joint deformities or swelling SKIN: There are no significant rashes or ecchymosis NEUROPSYCHIATRIC: The patient is alert and oriented x3. Appears to be lethargic. Urinary Catheter Management: Yu: Cath Placed During This Visit: yes Reason for Continuing Indwelling Catheter: Accurate Measurement of Urinary Output in Critically Ill Patients Urinary Catheter Date of Insertion: 03/16/22 Urinary Catheter Time of Insertion: 20:45 Data 03/22/22 02:30 03/22/22 02:30 Other Labs: Laboratory Last Values WBC 8.9 10^3/uL (4.0-10.0) 03/22/22 02:30 RBC 3.74 10^6/uL (4.1-5.3) L 03/22/22 02:30 Hgb 12.0 g/dL (11.5-15.3) 03/22/22 02:30 Hct 36.7 % (37.0-47.0) L 03/22/22 02:30 MCV 98.1 fl (81-99) 03/22/22 02:30 MCH 32.1 pg (28.0-34.0) 03/22/22 02:30 MCHC 32.7 g/dL (30.0-36.0) 03/22/22 02:30 RDW 14.3 % (12.1-15.1) 03/22/22 02:30 Plt Count 156 10^3/cmm (130-400) 03/22/22 02:30 MPV 11.3 fL (7.4-10.4) H 03/22/22 02:30 Neut % (Auto) 78.0 % 03/22/22 02:30 Lymph % (Auto) 11.9 % 03/22/22 02:30 [place] % (Auto) 8.4 % 03/22/22 02:30 Eos % (Auto) 0.9 % 03/22/22 02:30 Baso % (Auto) 0.1 % 03/22/22 02:30 Neut # (Auto) 6.94 10^3/uL (1.8-7.7) 03/22/22 02:30 Lymph # (Auto) 1.1 10^3/uL (0.8-4.8) 03/22/22 02:30 [place] # (Auto) 0.8 10^3/uL (0.2-0.9) 03/22/22 02:30 Eos # (Auto) 0.1 10^3/uL (0.0-0.8) 03/22/22 02:30 Baso # (Auto) 0.0 10^3/uL (0.0-0.1) 03/22/22 02:30 Nucleated RBC % (auto) 0 % 03/22/22 02:30 Nucleated RBCs # 0.0 /100WBC 03/22/22 02:30 APTT 49.0 SECONDS (23.9-36.7) H 03/21/22 16:12 Specimen Type Arterial 03/17/22 08:26 Sample Site Brachial, right 03/17/22 08:26 ABG pH 7.30 (7.35-7.45) L 03/17/22 08:26 ABG pCO2 39.4 mmHg (35-45) 03/17/22 08:26 ABG pO2 130.0 mmHg (80.0-100.0) H 03/17/22 08:26 ABG HCO3 19.5 mmol/L (22-26) L 03/17/22 08:26 ABG O2 Saturation 99.2 03/17/22 08:26 ABG Base Excess -6.4 mmol/L (-2.0-2.0) L 03/17/22 08:26 Travis Test N/a 03/17/22 08:26 A-a O2 Gradient 4.8 mmHg (5-10) L 03/17/22 08:26 Hematocrit 36.4 % (37-47) L 03/17/22 08:26 Hgb O2 Saturation 97.8 % (95-100) 03/17/22 08:26 Carboxyhemoglobin 0.7 %THgb (0.4-20.1) 03/17/22 08:26 Methemoglobin 0.7 % (0.4-1.5) 03/17/22 08:26 Total Hemoglobin 11.9 g/dL (12-16) L 03/17/22 08:26 Sodium 124.0 mmol/L (131-143) L 03/17/22 08:26 Potassium 5.5 mmol/L (3.5-5.0) H 03/17/22 08:26 Glucose 178.0 mg/dL (70-115) H 03/17/22 08:26 Ionized Calcium 1.2 mmol/L (1.1-1.4) 03/17/22 08:26 O2 Delivery Device Cpap 03/17/22 08:26 FiO2 30.0 % 03/17/22 08:26 PEEP 10.0 cmH20 03/17/22 08:26 Quilting Machine Operator ID [id number] 03/17/22 08:26 Sodium 127 mmol/L (136-145) L 03/22/22 02:30 Potassium 3.7 mmol/L (3.5-5.1) 03/22/22 02:30 Chloride 81 mmol/L (98-107) L 03/22/22 02:30 Carbon Dioxide 34 mmol/L (22-29) H 03/22/22 02:30 Anion Gap 15.7 (5-19) 03/22/22 02:30 BUN 58 mg/dL (8-23) H 03/22/22 02:30 Creatinine 1.9 mg/dL (0.5-0.9) H 03/22/22 02:30 GFR Calculation 26.4 mL/min (90-130) L 03/22/22 02:30 Glucose 165 mg/dL (65-115) H 03/22/22 02:30 POC Glucose 184 mg/dL (70-110) H 03/21/22 21:33 Calculated Osmolality 284 mOsm/kg (285-295) L 03/22/22 02:30 Uric Acid 8.0 mg/dL (2.4-5.7) H 03/21/22 02:38 Calcium 10.1 mg/dL (8.5-10.5) 03/22/22 02:30 Phosphorus 3.8 mg/dL (2.5-4.5) 03/21/22 02:38 Magnesium 2.1 mg/dL (1.7-2.3) 03/21/22 02:38 Total Bilirubin 0.7 mg/dL (0.15-1.2) 03/22/22 02:30 AST 159 U/L (0-32) H 03/22/22 02:30 ALT 647 U/L (0-33) H 03/22/22 02:30 Alkaline Phosphatase 113 U/L (35-105) H 03/22/22 02:30 Troponin T Gen 5 ng/L 52 ng/L (0-10) H 03/18/22 09:30 Troponin T Baseline 32 ng/L (0-10) H 03/15/22 21:10 Troponin T 120 Minute 72.05 ng/L (0-10) H 03/18/22 11:37 Delta Troponin T 20.05 ABS# (0-10) H* 03/18/22 11:37 Troponin T Hi Sens 6Hr 231.0 ng/L (0-10) H 03/18/22 15:02 Troponin T Hi Sens 6Hr Delta 179 ng/L (0-12) H* 03/18/22 15:02 NT-Pro-B Natriuret Pep 48250 pg/mL (0-125) H 03/15/22 21:10 Total Protein 6.4 g/dL (6.6-8.7) L 03/22/22 02:30 Albumin 3.7 g/dL (3.5-5.2) 03/22/22 02:30 Globulin 2.7 g/dL (1.3-4.6) 03/22/22 02:30 Urine Color Colorless (Yellow) 03/17/22 11:35 Urine Appearance Sl hazy (CLEAR) A 03/17/22 11:35 Urine pH 5 (5-7) 03/17/22 11:35 Ur Specific [place] 1.010 (1.005-1.030) 03/17/22 11:35 Urine Protein Neg (Negative) 03/17/22 11:35 Urine Glucose (UA) Norm (Normal) 03/17/22 11:35 Urine Ketones Negative (Negative) 03/17/22 11:35 Urine Blood 3+ (Negative) H 03/17/22 11:35 Urine Nitrate Negative (Negative) 03/17/22 11:35 Urine Bilirubin Neg (Negative) 03/17/22 11:35 Urine Urobilinogen Norm mg/dL (Negative) 03/17/22 11:35 Ur Leukocyte Esterase Negative (Negative) 03/17/22 11:35 Urine RBC 15-25 /hpf (0-2) H 03/17/22 11:35 Urine WBC None /hpf (0-5) 03/17/22 11:35 Ur Squamous Epith Cells None /hpf (0-5) 03/17/22 11:35 Amorphous Sediment Not Reportable 03/17/22 11:35 Urine Bacteria Trace /hpf (NONE) 03/17/22 11:35 Hyaline Casts 0-4 /lpf H 03/17/22 11:35 Urine Mucus Trace /hpf 03/17/22 11:35 Ur Random Sodium 68 mmol/L 03/17/22 11:35 Urine Creatinine 21 mg/dL (28-217) L 03/17/22 11:35 A&P Assessment and plan (1) CHF exacerbation: Patient has some worsening of the LV systolic function. The etiology of the acute decompensation is not clear. Possibility of ischemia or cardiac arrhythmia causing this are considerations. Currently seems seems to be hemodynamically stable. The blood pressure has been in the low normal side for a while. (2) Acute kidney injury: This also could be related to her low output state. The kidney function seems to be slowly improving (3) Troponin level elevated: Possibility of a type I IA cannot be excluded. This may need to be further evaluated. (4) ICD (implantable cardioverter-defibrillator), dual, in situ: The ICD was interrogated today. The ICD function was found to be appropriate. The threshold for V. tach treatment was at 150/min. She has recurrence of VT, we may consider reprogramming the device. The electrical abnormality could be a contributing factor. (5) Wide-complex tachycardia: Patient has a history of incessant V. tach. Currently she seems to be in a paced rhythm. Has not had any significant arrhythmias today. Lidocaine drip was turned off this morning (6) Elevated liver enzymes: Possibly from the heart failure-congestive hepatopathy. The liver enzymes are improving. (7) Atherosclerotic heart disease of [place] coronary artery with other forms of angina pectoris: We may consider repeat cardiac catheterization, once her kidney function is returned to the baseline. We will continue on the current medications for the time being Plan Other problems are Possible upper respiratory tract infection COPD exacerbation Multiple electrolyte abnormalities We will continue the close monitoring. Careful IV diuresis, as per the nephrology service Based on the clinical progress, further management decisions will be made Attestations Medical Necessity Statement*: Patient requires continued hospital stay for close monitoring and further management. 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
[2022-03-22] MEDS: enoxaparin 120 mg/0.8 mL Syringe 110 MG SUBCUT (18:02)
--- NOTE | 2022-03-22 18:10 | PC.NURSE ---
Shift Note: Pt has resting in bed entire shift. She has been offered assisted to get to chair several times today, she has refused. She seems more lethargic today than previous days. She has complained of pain, MSIR and Diflucan each applied once She complained of itching, Lotion applied. Family has been at bedside off and on this shift. Lidocaine gtt stopped around 1000 this am. No ectopy noted throughout this shift. She has ate 25-50% of her meals. She is compliant with the fluid restrictions. Urine output of 1050 ml clear pale yellow this shift. Frequent safety and comfort rounds continue. Orders and/or nursing care completed as indicated. Patient monitored for response to intervention and treatment(s). Education provided includes Potassium IV, Diflucan, progress and plan of care. Patient and/or ambulatory service representative verbalized understanding of plan of care, progress and medications discussed. Will continue to monitor.
--- NOTE | 2022-03-22 18:41 | PC.NURSE ---
Bedside report completed with TEJINDER Otero
[2022-03-22] MEDS: ondansetron 2 mg/ML SDV 2 mL 4 MG IVP (22:51)
[2022-03-23] VITALS (25 sets, daily range): BP systolic 84–127; BP diastolic 46–92; PULSE 69–93; RESP 16–21; TEMP 36.6–36.8; O2SAT 84–99
[2022-03-23] MEDS: metoclopramide 5 mg/mL SDV 2 mL IVP (00:53)
--- NOTE | 2022-03-23 01:51 | ECG_ITS ---
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 Measurements Intervals [place] Rate: 99 P: 50 NC: 214 QRS: -77 QRSD: 202 T: 101 QT: 472 QTc: 607 Interpretive Statements SINUS RHYTHM WITH FIRST DEGREE AV BLOCK POSSIBLE LEFT ATRIAL ENLARGEMENT [-0.1mV P-WAVE IN V1/V2] LEFT AXIS DEVIATION [QRS AXIS < -30] LEFT BUNDLE BRANCH BLOCK Compared to ECG 03/20/2022 15:57:46 First degree AV block now present Left-axis deviation now present Left bundle-branch block now present Ventricular tachycardia no longer present Electronically Signed On 03-23-2022 13:10:36 BATCHMAKER by Lidia Corona M.D. [email or web address]
--- NOTE | 2022-03-23 02:18 | PC.NURSE ---
0200- pt sonography technician light c/o chest pain, dr coulter notified, ekg done and troponin drawn per order, pt shows no ekg changes and all vs stable. will monitor.
[2022-03-23] MEDS: LORazepam 2 mg/mL INJ 1 mL 0.25 MG IVP (02:53)
[2022-03-23 03:06] LABS: Alanine Aminotransferase 506 U/L (0-33); Albumin Level 3.8 g/dL (3.5-5.2); Alkaline Phosphatase 128 U/L (35-105); Anion Gap 18.9 (5-19); Aspartate Amino Transferase 85 U/L (0-32); Blood Urea Nitrogen 54 mg/dL (8-23); Calcium 10.4 mg/dL (8.5-10.5); Carbon Dioxide 28 mmol/L (22-29); Chloride 81 mmol/L (98-107); Globulin 3.4 g/dL (1.3-4.6); Glomerular Filtration Rate 24.9 mL/min (90-130); Glucose 249 mg/dL (65-115); Magnesium 2.1 mg/dL (1.7-2.3); Osmolality Calculated 279 mOsm/kg (285-295); Phosphorus 3.9 mg/dL (2.5-4.5); Potassium 4.9 mmol/L (3.5-5.1); Sodium 123 mmol/L (136-145); Total Bilirubin 0.8 mg/dL (0.15-1.2); Total Protein 7.2 g/dL (6.6-8.7)
[2022-03-23 03:24] LABS: Troponin T (5th) Once 196 ng/L (0-10)
--- NOTE | 2022-03-23 03:41 | ECG_ITS ---
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 Measurements Intervals [place] Rate: 69 P: 59 [place]: 197 QRS: -66 QRSD: 225 T: 103 QT: 554 QTc: 598 Interpretive Statements ELECTRONIC ATRIAL PACEMAKER LEFT AXIS DEVIATION [QRS AXIS < -30] INTRAVENTRICULAR CONDUCTION DELAY [130+ ms QRS DURATION] PROLONGED QT INTERVAL Compared to ECG 03/23/2022 02:03:47 Intraventricular conduction delay now present Prolonged QT interval now present Sinus rhythm no longer present First degree AV block no longer present Left bundle-branch block no longer present Myocardial infarct finding no longer present Electronically Signed On 03-23-2022 13:09:45 LOG SAWYER by Lidia Corona M.D. [id number]
[2022-03-23 05:40] LABS: Troponin 5 2HR 187.6 ng/L (0-10); Troponin 5 2HR Delta -8.4 ABS# (0-10)
--- NOTE | 2022-03-23 05:52 | ECG_ITS ---
[facility] Test Date: 2022-03-23 Pat Name: Amber White Department: Room: [facility]02 Gender: Female Medical Numerical Control Operator: : 1955 Requested By: Diane Bashir Order Number: [id number] Anabel MD: Lidia Corona M.D. Measurements Intervals [place] Rate: 72 P: 79 [place]: 212 QRS: -80 QRSD: 204 T: 102 QT: 503 QTc: 554 Interpretive Statements SINUS RHYTHM WITH FIRST DEGREE AV BLOCK POSSIBLE LEFT ATRIAL ENLARGEMENT [-0.1mV P-WAVE IN V1/V2] LEFT AXIS DEVIATION [QRS AXIS < -30] LEFT BUNDLE BRANCH BLOCK Compared to ECG 03/23/2022 03:45:51 First degree AV block now present Left bundle-branch block now present Myocardial infarct finding now present Atrial-paced complex(es) or rhythm no longer present Intraventricular conduction delay no longer present Prolonged QT interval no longer present Electronically Signed On 03-23-2022 13:14:08 LABORATORY TECHNOLOGIST by Lidia Corona M.D. [id number]
--- NOTE | 2022-03-23 06:50 | PC.NURSE ---
Bedside report completed with TEJINDER Otero.
--- NOTE | 2022-03-23 07:57 | ECG_ITS ---
[facility] Test Date: 2022-03-23 Pat Name: Amber White Department: Room: 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 Measurements Intervals [place] Rate: 69 P: 162 [place]: 249 QRS: -62 QRSD: 217 T: 116 QT: 505 QTc: 545 Interpretive Statements ELECTRONIC ATRIAL PACEMAKER LEFT AXIS DEVIATION [QRS AXIS < -30] INTRAVENTRICULAR CONDUCTION DELAY [130+ ms QRS DURATION] Compared to ECG 03/23/2022 06:30:11 Intraventricular conduction delay now present Sinus rhythm no longer present First degree AV block no longer present Left bundle-branch block no longer present Myocardial infarct finding no longer present Electronically Signed On 03-23-2022 13:13:44 PATTERN DEVELOPER by Lidia Corona M.D. [email or web address]/[id number]
[2022-03-23] MEDS: amiodarone 200 mg Tablet 400 MG PO (09:45)
[2022-03-23] MEDS: acetaZOLAMIDE 250 mg Tablet PO (09:46)
[2022-03-23] MEDS: aspirin 81 mg Chew Tablet PO (09:46)
[2022-03-23] MEDS: sennosides-docusate Tablet 1 TAB PO (09:46)
[2022-03-23 09:53] LABS: Troponin 5 6HR 220.7 ng/L (0-10); Troponin 5 6HR Delta 24.7 ng/L (0-12)
[2022-03-23] MEDS: clopidogrel 300 mg Tablet PO (10:27)
--- NOTE | 2022-03-23 10:38 | PM.PN ---
Subjective Subjective: Patient is feeling better. Has not had any recurrence of wide-complex tachycardia. ICD interrogation was performed yesterday. ICD function was found to be appropriate. The liver enzymes are improving. Renal function has stabilized. She has been complaining of some chest discomfort last night. The 6-hour troponin T has a significant delta this morning. Medications: Medication Review Details: Current Medications Acetaminophen (Acetaminophen 500 Mg Tablet) 500 mg PO Q4H PRN PRN Reason: fever Last Admin: 03/18/22 02:13 Dose: 500 mg Acetazolamide (Acetazolamide 250 Mg Tablet) 250 mg PO DAILY [facility] Last Admin: 03/23/22 09:46 Dose: 250 mg Albuterol/Ipratropium (Ipratropium-Albuterol 3 Ml Neb) 3 ml INHALATION Q6H PRN PRN Reason: SHORTNESS OF BREATH Last Admin: 03/22/22 13:24 Dose: 3 ml Allopurinol (Allopurinol 300 Mg Tablet) 300 mg PO DAILY [facility] Last Admin: 03/19/22 08:33 Dose: 300 mg Amiodarone HCl (Amiodarone 200 Mg Tablet) 400 mg PO DAILY [facility] Last Admin: 03/23/22 09:45 Dose: 400 mg Aspirin (Aspirin 81 Mg Chew Tablet) 81 mg PO DAILY [facility] Last Admin: 03/23/22 09:46 Dose: 81 mg Atorvastatin Calcium (Atorvastatin 40 Mg Tablet) 80 mg PO DAILY [facility] Last Admin: 03/19/22 08:33 Dose: 80 mg Clopidogrel Bisulfate (Clopidogrel 75 Mg Tablet) 75 mg PO DAILY [facility] Diclofenac Sodium (Diclofenac 1% Topical Gel 100 Gm) 1 applic TOPICAL QID PRN PRN Reason: pain Last Admin: 03/22/22 20:38 Dose: 1 applic Enoxaparin Sodium (Enoxaparin 120 Mg/0.8 Ml Syringe) 110 mg SUBCUT Q24H [facility] Last Admin: 03/22/22 18:02 Dose: 110 mg Norepinephrine Bitartrate 4 mg (/ Dextrose) 254 mls @ 0 mls/hr IV .Q0M [facility]; Protocol Last Titration: 03/21/22 19:00 Dose: 0 mcg/min, 0 mls/hr Nitroglycerin/Dextrose (Nitroglycerin Drip) 50 mg in 250 mls @ 0 mls/hr IV .Q0M MING[place]; Protocol Last Titration: 03/20/22 18:49 Dose: Infused Ceftriaxone Sodium 1,000 mg/ (Sodium Chloride) 50 mls @ 100 mls/hr IV Q24H [facility]; Protocol Last Infusion: 03/22/22 14:13 Dose: Infused Lidocaine HCl/Dextrose (Lidocaine Drip) 2,000 mg in 500 mls @ 30 mls/hr IV .[id number] [facility] Last Admin: 03/23/22 00:47 Dose: Not Given Methylprednisolone Sodium Succinate (Methylprednisolone Sod Succ 40 Mg/Ml Inj) 40 mg IVP Q12H [facility] Last Admin: 03/22/22 22:51 Dose: 40 mg Metoclopramide HCl (Metoclopramide 5 Mg/Ml Sdv 2 Ml) 5 mg IVP Q6H PRN PRN Reason: NAUSEA AND VOMITING Last Admin: 03/23/22 00:53 Dose: 5 mg Morphine Sulfate (Morphine Ir 15 Mg Tablet) 15 mg PO Q6H PRN PRN Reason: MODERATE TO SEVERE PAIN Last Admin: 03/22/22 20:37 Dose: 15 mg Nitroglycerin (Nitroglycerin 0.4 Mg Sublingual Tablet) 0.4 mg SUBLINGUAL Q5M PRN PRN Reason: CHEST PAIN Ondansetron HCl (Ondansetron 2 Mg/Ml Sdv 2 Ml) 4 mg IVP Q6H PRN PRN Reason: NAUSEA AND VOMITING Last Admin: 03/22/22 22:51 Dose: 4 mg Potassium Chloride (Potassium Chloride Er 20 Meq Tablet) 40 meq PO DAILY [facility] Last Admin: 03/23/22 09:46 Dose: Not Given Senna/Docusate Sodium (Sennosides-Docusate Tablet) 1 tab PO DAILY [facility] Last Admin: 03/23/22 09:46 Dose: 1 tab Vitals/I&O/Wt Last Vital Signs Temp 98.1 F 03/23/22 03:19 Pulse 70 03/23/22 08:00 Resp 16 03/23/22 08:00 BP 103/55 03/22/22 16:00 Pulse Ox 94 03/23/22 08:00 O2 Del Method 03/23/22 08:00 O2 Flow Rate 3 03/23/22 08:00 FiO2 30 03/17/22 19:47 03/22/22 03/23/22 03/23/22 22:59 06:59 14:59 Intake Total 100 / 1295.0 200 / 1495.0 Output Total 1275 / 1275 250 / 1525 Balance -1175 / 20.0 -50 / -30.0 Physical Exam Narrative: GENERAL: The patient is alert and oriented times 3.Not in any acute distress. Seems to be more alert responsive today HEENT: No significant pallor, icterus or lymphadenopathy.Oral cavity: There are no mucous membrane lesions. NECK: Trachea appears to be central. No masses noted. No JVD or thyromegaly appreciated. RESPIRATORY: Chest is symmetrical. No intercostals muscle retraction or any accessory muscle activation. There is no chest wall tenderness. Breath sounds are heard bilaterally. No rales or rhonchi heard. No evidence of any consolidation. BREASTS: Deferred. HEART: The heart sounds are normal. No S3 or S4. Short systolic murmur in the left sternal border. No pericardial rub ABDOMEN: No vessel pulsations or distention. No tenderness. No organomegaly appreciated. Bowel sounds are normally heard. : Deferred. RECTAL: Deferred. LYMPHATIC: No lymphadenopathy noted in the neck. EXTREMITIES: Trace edema with no cyanosis. No clubbing. MUSCULOSKELETAL: No acute joint deformities or swelling SKIN: There are no significant rashes or ecchymosis NEUROPSYCHIATRIC: The patient is alert and oriented x3. No focal motor deficits Urinary Catheter Management: Yu: Cath Placed During This Visit: yes Reason for Continuing Indwelling Catheter: Accurate Measurement of Urinary Output in Critically Ill Patients Urinary Catheter Date of Insertion: 03/16/22 Urinary Catheter Time of Insertion: 20:45 Data 03/22/22 02:30 03/23/22 02:09 Other Labs: Laboratory Last Values WBC 8.9 10^3/uL (4.0-10.0) 03/22/22 02:30 RBC 3.74 10^6/uL (4.1-5.3) L 03/22/22 02:30 Hgb 12.0 g/dL (11.5-15.3) 03/22/22 02:30 Hct 36.7 % (37.0-47.0) L 03/22/22 02:30 MCV 98.1 fl (81-99) 03/22/22 02:30 MCH 32.1 pg (28.0-34.0) 03/22/22 02:30 MCHC 32.7 g/dL (30.0-36.0) 03/22/22 02:30 RDW 14.3 % (12.1-15.1) 03/22/22 02:30 Plt Count 156 10^3/cmm (130-400) 03/22/22 02:30 MPV 11.3 fL (7.4-10.4) H 03/22/22 02:30 Neut % (Auto) 78.0 % 03/22/22 02:30 Lymph % (Auto) 11.9 % 03/22/22 02:30 [place] % (Auto) 8.4 % 03/22/22 02:30 Eos % (Auto) 0.9 % 03/22/22 02:30 Baso % (Auto) 0.1 % 03/22/22 02:30 Neut # (Auto) 6.94 10^3/uL (1.8-7.7) 03/22/22 02:30 Lymph # (Auto) 1.1 10^3/uL (0.8-4.8) 03/22/22 02:30 [place] # (Auto) 0.8 10^3/uL (0.2-0.9) 03/22/22 02:30 Eos # (Auto) 0.1 10^3/uL (0.0-0.8) 03/22/22 02:30 Baso # (Auto) 0.0 10^3/uL (0.0-0.1) 03/22/22 02:30 Nucleated RBC % (auto) 0 % 03/22/22 02:30 Nucleated RBCs # 0.0 /100WBC 03/22/22 02:30 APTT 49.0 SECONDS (23.9-36.7) H 03/21/22 16:12 Specimen Type Arterial 03/17/22 08:26 Sample Site Brachial, right 03/17/22 08:26 ABG pH 7.30 (7.35-7.45) L 03/17/22 08:26 ABG pCO2 39.4 mmHg (35-45) 03/17/22 08:26 ABG pO2 130.0 mmHg (80.0-100.0) H 03/17/22 08:26 ABG HCO3 19.5 mmol/L (22-26) L 03/17/22 08:26 ABG O2 Saturation 99.2 03/17/22 08:26 ABG Base Excess -6.4 mmol/L (-2.0-2.0) L 03/17/22 08:26 Travis Test N/a 03/17/22 08:26 A-a O2 Gradient 4.8 mmHg (5-10) L 03/17/22 08:26 Hematocrit 36.4 % (37-47) L 03/17/22 08:26 Hgb O2 Saturation 97.8 % (95-100) 03/17/22 08:26 Carboxyhemoglobin 0.7 %THgb (0.4-20.1) 03/17/22 08:26 Methemoglobin 0.7 % (0.4-1.5) 03/17/22 08:26 Total Hemoglobin 11.9 g/dL (12-16) L 03/17/22 08:26 Sodium 124.0 mmol/L (131-143) L 03/17/22 08:26 Potassium 5.5 mmol/L (3.5-5.0) H 03/17/22 08:26 Glucose 178.0 mg/dL (70-115) H 03/17/22 08:26 Ionized Calcium 1.2 mmol/L (1.1-1.4) 03/17/22 08:26 O2 Delivery Device Cpap 03/17/22 08:26 FiO2 30.0 % 03/17/22 08:26 PEEP 10.0 cmH20 03/17/22 08:26 Medical Science Liaison ID Amh 03/17/22 08:26 Sodium 123 mmol/L (136-145) L 03/23/22 02:09 Potassium 4.9 mmol/L (3.5-5.1) 03/23/22 02:09 Chloride 81 mmol/L (98-107) L 03/23/22 02:09 Carbon Dioxide 28 mmol/L (22-29) 03/23/22 02:09 Anion Gap 18.9 (5-19) 03/23/22 02:09 BUN 54 mg/dL (8-23) H 03/23/22 02:09 Creatinine 2.0 mg/dL (0.5-0.9) H 03/23/22 02:09 GFR Calculation 24.9 mL/min (90-130) L 03/23/22 02:09 Glucose 249 mg/dL (65-115) H 03/23/22 02:09 POC Glucose 184 mg/dL (70-110) H 03/21/22 21:33 Calculated Osmolality 279 mOsm/kg (285-295) L 03/23/22 02:09 Uric Acid 8.0 mg/dL (2.4-5.7) H 03/21/22 02:38 Calcium 10.4 mg/dL (8.5-10.5) 03/23/22 02:09 Phosphorus 3.9 mg/dL (2.5-4.5) 03/23/22 02:09 Magnesium 2.1 mg/dL (1.7-2.3) 03/23/22 02:09 Total Bilirubin 0.8 mg/dL (0.15-1.2) 03/23/22 02:09 AST 85 U/L (0-32) H 03/23/22 02:09 ALT 506 U/L (0-33) H 03/23/22 02:09 Alkaline Phosphatase 128 U/L (35-105) H 03/23/22 02:09 Troponin T Gen 5 ng/L 196 ng/L (0-10) H* 03/23/22 02:09 Troponin T Baseline 32 ng/L (0-10) H 03/15/22 21:10 Troponin T 120 Minute 187.6 ng/L (0-10) H 03/23/22 04:53 Delta Troponin T -8.4 ABS# (0-10) L 03/23/22 04:53 Troponin T Hi Sens 6Hr 220.7 ng/L (0-10) H 03/23/22 08:07 Troponin T Hi Sens 6Hr Delta 24.7 ng/L (0-12) H* 03/23/22 08:07 NT-Pro-B Natriuret Pep 25336 pg/mL (0-125) H 03/15/22 21:10 Total Protein 7.2 g/dL (6.6-8.7) 03/23/22 02:09 Albumin 3.8 g/dL (3.5-5.2) 03/23/22 02:09 Globulin 3.4 g/dL (1.3-4.6) 03/23/22 02:09 Urine Color Colorless (Yellow) 03/17/22 11:35 Urine Appearance Sl hazy (CLEAR) A 03/17/22 11:35 Urine pH 5 (5-7) 03/17/22 11:35 Ur Specific [place] 1.010 (1.005-1.030) 03/17/22 11:35 Urine Protein Neg (Negative) 03/17/22 11:35 Urine Glucose (UA) Norm (Normal) 03/17/22 11:35 Urine Ketones Negative (Negative) 03/17/22 11:35 Urine Blood 3+ (Negative) H 03/17/22 11:35 Urine Nitrate Negative (Negative) 03/17/22 11:35 Urine Bilirubin Neg (Negative) 03/17/22 11:35 Urine Urobilinogen Norm mg/dL (Negative) 03/17/22 11:35 Ur Leukocyte Esterase Negative (Negative) 03/17/22 11:35 Urine RBC 15-25 /hpf (0-2) H 03/17/22 11:35 Urine WBC None /hpf (0-5) 03/17/22 11:35 Ur Squamous Epith Cells None /hpf (0-5) 03/17/22 11:35 Amorphous Sediment Not Reportable 03/17/22 11:35 Urine Bacteria Trace /hpf (NONE) 03/17/22 11:35 Hyaline Casts 0-4 /lpf H 03/17/22 11:35 Urine Mucus Trace /hpf 03/17/22 11:35 Ur Random Sodium 68 mmol/L 03/17/22 11:35 Urine Creatinine 21 mg/dL (28-217) L 03/17/22 11:35 A&P Assessment and plan (1) CHF exacerbation: Patient has some worsening of the LV systolic function. The etiology of the acute decompensation is not clear. Possibility of ischemia or cardiac arrhythmia causing this are considerations. Currently seems seems to be hemodynamically stable. The blood pressure has been in the low normal side for a while. (2) Troponin level elevated: They will do troponin T with Significant delta is suggestive of an acute Injury. I may start her on Plavix 300 mg p.o. now followed by 75 mg p.o. daily. Continue on the Lovenox. Consider cardiac catheterization once her kidney function is stabilized. (3) Acute kidney injury: This could be related to her low output state. The kidney function seems to be slowly improving (4) ICD (implantable cardioverter-defibrillator), dual, in situ: Since there is no recurrence of ventricular tachycardia, may continue on the current management. (5) Wide-complex tachycardia: Patient has a history of incessant V. tach. Currently she seems to be in a paced rhythm. Has not had any currents of the V. tach since yesterday (6) Elevated liver enzymes: Possibly from the heart failure-congestive hepatopathy. The liver enzymes are improving. 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 We will continue on the current medications for the time being Plan Other problems are Hyponatremia, management as per the nephrology with Possible upper respiratory tract infection COPD exacerbation Multiple electrolyte abnormalities We will continue the close monitoring. Careful IV diuresis, as per the nephrology service Plavix 300 mg p.o. now followed by 75 mg p.o. daily Once her cardiac catheterization over the weekend, if the kidney function is stabilized Based on the clinical progress, further management decisions will be made Attestations Medical Necessity Statement*: Patient requires continued hospital stay for close monitoring and further management Coding Level of Care Code Acute Home Economist for Chg Fwd History Expanded Problem Focused Exam Detailed Medical Decision Making Moderate Complexity Diagnoses CHF exacerbation I50.9 Troponin level elevated R77.8 Acute kidney injury N17.9 ICD (implantable cardioverter-defibrillator), dual, in situ Z95.810 Wide-complex tachycardia R00.0 Elevated liver enzymes R74.8 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
--- NOTE | 2022-03-23 11:54 | PM.PN ---
Subjective Subjective: alert, lethargic Vitals/I&O/Wt Last Vital Signs Temp 98.1 F 03/23/22 03:19 Pulse 70 03/23/22 08:00 Resp 16 03/23/22 08:00 BP 103/55 03/22/22 16:00 Pulse Ox 94 03/23/22 08:00 O2 Del Method 03/23/22 08:00 O2 Flow Rate 3 03/23/22 08:00 FiO2 30 03/17/22 19:47 03/22/22 03/23/22 03/23/22 22:59 06:59 14:59 Intake Total 100 / 1295.0 200 / 1495.0 Output Total 1275 / 1275 250 / 1525 Balance -1175 / 20.0 -50 / -30.0 Physical Exam Const: COMMON NORMALS: no acute distress Resp: OTHER: rhonchi, wheeze Cardio: COMMON NORMALS: regular rhythm RHYTHM: regular rhythm Urinary Catheter Management: Yu: Cath Placed During This Visit: yes Reason for Continuing Indwelling Catheter: Accurate Measurement of Urinary Output in Critically Ill Patients Urinary Catheter Date of Insertion: 03/16/22 Urinary Catheter Time of Insertion: 20:45 Data 03/22/22 02:30 03/23/22 02:09 Other Labs: 10.4, 3.9, 2.1, albumin 3.8 A&P Assessment and plan (1) Acute kidney injury: seen via telemedicine with assistance of RN at bedside Plan 1. Acute kidney injury, good urine output, BUN/Cr slowly improving 2. Decompensated heart failure. urine output remains good off of stop lasix gtt 3. Hypokalemia, metabolic alkalosis, improved 4. Hyponatremia, sodium lower, even corrected for BS - will d/c diamox, give 100 ml 3%NSS. repeat sodium later today 5. Chronic kidney disease: baseline Cr 1.5 - 1.6 mg/dL, small kidneys on renal us Attestations Medical Necessity Statement*: see above Time Spent in Patient Care: 16 - 35 minutes Coding Level of Care Code Acute Supervisor Ovens for Miguelina Lynch Diagnoses Acute kidney injury N17.9
[2022-03-23] MEDS: sodium chloride 3% 100 ML in empty flexible container 1 EACH 200 ML IV (13:05)
[2022-03-23] MEDS: cefTRIAXone 1,000 MG in sodium chloride 0.9% (plus) 50 ML 100 MG IV (13:09)
--- NOTE | 2022-03-23 14:31 | P.PN_ITS ---
Subjective Subjective: Patient was seen and examined this morning, continues to be lethargic, had another episode of chest pain last night Troponin trend was done: [id number] failed to show any acute ST-T wave changes. Medications: Reviewed: Yes Medication Review Details: Generic Name Dose Route Start Last Admin Trade Name Freq PRN Reason Stop Dose Admin Acetaminophen 500 mg 03/16/22 00:12 03/18/22 02:13 Acetaminophen 50 0 Mg Tablet PO 500 mg Q4H PRN Administration fever Albuterol/Ipratrop ium 3 ml 03/16/22 00:45 03/22/22 13:24 Ipratropium-Albu terol 3 Ml Neb INHALATION 3 ml Q6H PRN Administration SHORTNESS OF AUREA TH Allopurinol 300 mg 03/16/22 09:00 03/19/22 08:33 Allopurinol 300 Mg Tablet PO 300 mg DAILY MINGO Administration Amiodarone HCl 400 mg 03/16/22 09:00 03/23/22 09:45 Amiodarone 200 M g Tablet PO 400 mg DAILY MINGO Administration Aspirin 81 mg 03/16/22 09:00 03/23/22 09:46 Aspirin 81 Mg Ch ew Tablet PO 81 mg DAILY MINGO Administration Atorvastatin Calci um 80 mg 03/16/22 09:00 03/19/22 08:33 Atorvastatin 40 Mg Tablet PO 80 mg DAILY MINGO Administration Diclofenac Sodium 1 applic 03/17/22 08:24 03/22/22 20:38 Diclofenac 1% To pical Gel 100 Gm TOPICAL 1 applic QID PRN Administration pain Enoxaparin Sodium 110 mg 03/21/22 18:00 03/22/22 18:02 Enoxaparin 120 M g/0.8 Ml Syringe SUBCUT 110 mg Q24H MINGO Administration Norepinephrine Bit artrate 4 mg 254 mls @ 0 mls/h r 03/17/22 12:00 03/21/22 19:00 / Dextrose IV Infused .Q0M MINGO Titration Protocol Per Protocol Nitroglycerin/Dext letha 50 mg in 250 mls @ 0 mls/hr 03/18/22 10:15 03/20/22 18:[address] ip IV Infused .Q0M MINGO Titration Protocol Per Protocol Ceftriaxone Sodium 1,000 mg/ 50 mls @ 100 mls/ hr 03/19/22 13:30 03/23/22 13:09 Sodium Chloride IV 100 mls/hr Q24H MINGO Administration Protocol Lidocaine HCl/Dext letha 2,000 mg in 500 m ls @ 30 mls/hr 03/20/22 16:30 03/23/22 00:47 Lidocaine Drip IV Not Given .[id number] MINGO 2 MG/MIN Methylprednisolone Sodium Succinate 40 mg 03/22/22 12:00 03/23/22 13:04 Methylprednisolo ne Sod Succ 40 Mg/ Ml Inj IVP 40 mg Q12H MINGO Administration Metoclopramide HCl 5 mg 03/19/22 10:17 03/23/22 00:53 Metoclopramide 5 Mg/Ml Sdv 2 Ml IVP 5 mg Q6H PRN Administration NAUSEA AND VOMITI NG Morphine Sulfate 15 mg 03/20/22 08:56 03/22/22 20:37 Morphine Ir 15 M g Tablet PO 15 mg Q6H PRN Administration MODERATE TO SEVER E PAIN Ondansetron HCl 4 mg 03/16/22 00:45 03/22/22 22:51 Ondansetron 2 Mg /Ml Sdv 2 Ml IVP 4 mg Q6H PRN Administration NAUSEA AND VOMITI NG Potassium Chloride 40 meq 03/21/22 09:00 03/23/22 09:46 Potassium Chlori de Er 20 Meq Table t PO Not Given DAILY MINGO Senna/Docusate Sod ium 1 tab 03/16/22 09:00 03/23/22 09:46 Sennosides-Docus ate Tablet PO 1 tab DAILY MINGO Administration Vitals/I&O/Wt Last Vital Signs Temp 98.1 F 03/23/22 03:19 Pulse 70 03/23/22 08:00 Resp 16 03/23/22 08:00 BP 103/55 03/22/22 16:00 Pulse Ox 94 03/23/22 08:00 O2 Del Method 03/23/22 08:00 O2 Flow Rate 3 03/23/22 08:00 FiO2 30 03/17/22 19:47 03/22/22 03/23/22 03/23/22 22:59 06:59 14:59 Intake Total 100 / 1295.0 200 / 1495.0 Output Total 1275 / 1275 250 / 1525 Balance -1175 / 20.0 -50 / -30.0 Physical Exam Resp: OTHER: Diminished air entry bilaterally, minimal expiratory wheezing Cardio: COMMON NORMALS: regular rate, regular rhythm, S1 normal heart sound present, S2 normal heart sound present, No gallops present (Cardio), No murmurs present (Cardio), No rub (Cardio) and Peripheral pulses 2+ throughout RATE: regular rate RHYTHM: regular rhythm HEART SOUNDS: S1 normal heart sound present and S2 normal heart sound present PERIPHERAL PULSES: Peripheral pulses 2+ throughout OTHER: Irregularly irregular rhythm, S1-S2 variable intensity GI: COMMON NORMALS: Normal to inspection, nondistended, normoactive bowel sounds present, Soft to palpation, non-tender, No hepatosplenomegaly present and no masses AUSCULTATION: Yes normoactive bowel sounds PALPATION: Yes Soft to palpation and Yes No hepatosplenomegaly present RECTAL EXAM: deferred Extremity: COMMON NORMALS: no clubbing, cyanosis or edema and no pedal edema NARRATIVE EXTREMITY EXAM: 2+ bilateral lower extremity pitting edema Urinary Catheter Management: Yu: Cath Placed During This Visit: yes Reason for Continuing Indwelling Catheter: Accurate Measurement of Urinary Output in Critically Ill Patients Urinary Catheter Date of Insertion: 03/16/22 Urinary Catheter Time of Insertion: 20:45 Data 03/22/22 02:30 03/23/22 02:09 A&P Assessment and plan (1) CHF exacerbation: (2) ICD (implantable cardioverter-defibrillator), dual, in situ: (3) Chronic episodic atrial fibrillation: (4) Hyperkalemia: (5) Hyponatremia: Plan 65 year old female who has history of chronic atrial fibrillation, ischemic cardiomyopathy PCI to right coronary mixed systolic diastolic congestive heart failure status post AICD placement(EF 30%) was brought in with chief complaint of worsening shortness of breath as well as cough going on for the last few days extremely bad yesterday, she was being treated as an outpatient by her PCP with azithromycin Augmentin, and prednisone for possible bronchitis. Currently she is being managed for Assessment: Ventricular tachycardia: Decompensated heart failure: Impending cardiogenic shock Worsening YUDI on CKD: Baseline serum creatinine appears to be around 1.5-1.6: Possibly secondary CRS 2/2 decompensated heart failure NSTEMI : Likely type II NSTEMI in the setting of renal failure and decompensated heart failure. Severe hypervolemic hyponatremia Transaminitis: Possibly secondary to congestive hepatopathy secondary to decompensated heart failure.Will get ultrasound abdomen. Possibly hepatitis panel. Medication reviewed: She is on amiodarone. Currently also on Augmentin. Will DC Augmentin. We will hold allopurinol and atorvastatin. Will need monitoring for cholecystitis/not to forget acalculous cholecystitis.Currently total bilirubin is normal. History of chronic atrial fibrillation History of coronary artery disease Bronchitis Tendinopathy of rotator cuff: History of gout Plan: X-ray chest: Is showing diffuse pulmonary vascular congestion, elevated proBNP: [id number], Ultrasound abdomen: Mild hepatic steatosis Troponin trend:52-72- Serial EKG: Paced rhythm no acute ST-T wave changes Was on Lasix drip running at 5 mg/hr, was on metolazone (thiazide like diuretic) 10 mg p.o. daily, has been discontinued due to hyponatremia. Was On heparin drip: Has been switched to therapeutic Lovenox renally dosed. Was on nitro drip Monitor intake output charting Monitor electrolytes K>4 ,MG>2 Monitor daily weight Avoid nephrotoxic's Telemetry monitoring Continue amiodarone Was on lidocaine drip: Has been weaned off Continue aspirin Hold Eliquis Plan was to use tolvaptan currently not available Fluid restriction to 1200 cc Was on Augmentin: Has been discontinued due to transaminitis.Will switch to Rocephin. Nephrology on board Cardiology on board CODE STATUS: Full code DVT prophylaxis: Not needed on Eliquis Attestations Medical Necessity Statement*: Patient needs to be in hospital for the managem ent of H/F, chest pain, NSTEMI. Coding Level of Care Code Acute Steam Cleaning Machine Operator for g Fwd Exam Expanded Problem Focused Diagnoses CHF exacerbation I50.9 ICD (implantable cardioverter-defibrillator), dual, in situ Z95.810 Chronic episodic atrial fibrillation I48.20 Hyperkalemia E87.5 Hyponatremia E87.1
[2022-03-23] MEDS: ipratropium-albuterol 3 mL Neb INHALATION (16:12)
[2022-03-23 16:19] LABS: Anion Gap 17.2 (5-19); Blood Urea Nitrogen 63 mg/dL (8-23); Calcium 9.9 mg/dL (8.5-10.5); Carbon Dioxide 29 mmol/L (22-29); Chloride 83 mmol/L (98-107); Glomerular Filtration Rate 24.9 mL/min (90-130); Glucose 178 mg/dL (65-115); Osmolality Calculated 282 mOsm/kg (285-295); Potassium 4.2 mmol/L (3.5-5.1); Sodium 125 mmol/L (136-145)
[2022-03-23] MEDS: enoxaparin 120 mg/0.8 mL Syringe 110 MG SUBCUT (18:27)
--- NOTE | 2022-03-23 19:05 | PC.NURSE ---
Bedside report completed with TEJINDER Otero.
--- NOTE | 2022-03-23 19:28 | PC.NURSE ---
Shift Note: Pt has rested in bed throughout shift. She has been drowsy / lethargic today. Her sodium level was low. She received 100ml of 3% sodium chloride today. She was allowed salt on her food, which she picked at except for dinner and she ate that very well. Frequent safety and comfort rounds continue. Orders and/or nursing care completed as indicated. Patient monitored for response to intervention and treatment(s). Education provided includes plavix, diamox, 3% Sodium chloride, low sodium levels and plan of care. Patient and/or bilingual inside sales representative verbalized understanding of plan of care and topics discussed. Will continue to monitor.
[2022-03-23] MEDS: morphine IR 15 mg Tablet PO (20:30)
[2022-03-23] MEDS: ondansetron 2 mg/ML SDV 2 mL 4 MG IVP (20:59)
[2022-03-23] MEDS: ALPRAZolam 0.5 mg Tablet 0.25 MG PO (23:31)
[2022-03-24] VITALS (25 sets, daily range): BP systolic 86–122; BP diastolic 54–89; PULSE 8–104; RESP 15–24; TEMP 36.5–36.7; O2SAT 92–99
[2022-03-24 05:14] LABS: Alanine Aminotransferase 320 U/L (0-33); Albumin Level 3.5 g/dL (3.5-5.2); Alkaline Phosphatase 106 U/L (35-105); Anion Gap 13.6 (5-19); Aspartate Amino Transferase 47 U/L (0-32); Blood Urea Nitrogen 74 mg/dL (8-23); Calcium 9.6 mg/dL (8.5-10.5); Carbon Dioxide 29 mmol/L (22-29); Chloride 84 mmol/L (98-107); Glomerular Filtration Rate 22.3 mL/min (90-130); Glucose 188 mg/dL (65-115); Osmolality Calculated 283 mOsm/kg (285-295); Potassium 3.6 mmol/L (3.5-5.1); Sodium 123 mmol/L (136-145); Total Bilirubin 0.5 mg/dL (0.15-1.2); Total Protein 6.5 g/dL (6.6-8.7)
--- NOTE | 2022-03-24 06:39 | P.PN_ITS ---
Subjective Subjective: sleeping this AM Vitals/I&O/Wt Last Vital Signs Temp 97.7 F 03/24/22 03:34 Pulse 70 03/24/22 05:38 Resp 18 03/23/22 20:30 BP 104/67 03/23/22 19:00 Pulse Ox 96 03/23/22 19:34 O2 Del Method 03/24/22 03:34 O2 Flow Rate 3 03/24/22 03:34 FiO2 30 03/17/22 19:47 03/23/22 03/23/22 03/24/22 14:59 22:59 06:59 Intake Total 300 / 300 500 / 800 200 / 1000 Output Total 700 / 700 450 / 1150 Balance 300 / 300 -200 / 100 -250 / -150 Physical Exam Urinary Catheter Management: Yu: Cath Placed During This Visit: yes Reason for Continuing Indwelling Catheter: Accurate Measurement of Urinary Output in Critically Ill Patients Urinary Catheter Date of Insertion: 03/16/22 Urinary Catheter Time of Insertion: 20:45 Data 03/22/22 02:30 03/24/22 03:50 A&P Assessment and plan (1) Acute kidney injury: seen via telemedicine with assistance of RN at bedside Plan 1. Acute kidney injury, urine output less, BUN/Cr rising. May have degree of volume depletion 2. Decompensated heart failure. 3. Hypokalemia, metabolic alkalosis, improved 4. Hyponatremia, sodium lower 5. Chronic kidney disease: baseline Cr 1.5 - 1.6 mg/dL, small kidneys on renal us Recommend: will begin NSS at 75 ml/hr and NaCl oral. Repeat BMP later today Attestations Medical Necessity Statement*: see above Time Spent in Patient Care: 16 - 35 minutes Coding Level of Care Code Acute Political Advisor for Miguelina Lynch Diagnoses Acute kidney injury N17.9
--- NOTE | 2022-03-24 10:03 | P.PN_ITS ---
Subjective Subjective: This woman is 67 years old and looks much older. She is an extremely ill woman with an extraordinarily long list of medical problems. She was admitted to the hospital 10 days ago with shoulder pain, shortness of breath, fatigue and was diagnosed with heart failure. Her BNP was above 17,000. When she was admitted her creatinine was 2.2. Because of her underlying coronary disease, heart failure and other medical problems, her creatinine peaked at 3.9 on the third. 2 days ago it was 1.9 but now it is back up to 2.2. Nephrology has been involved. She had an echo on the third. This showed global hypokinesis with an ejection fraction of 15 to 20% with biatrial enlargement and moderate mitral regurgitation. This evaluation of the ejection fraction is less than her previous echo which revealed an ejection fraction of about 30%. Cardiology was asked to see her on the fourth. Her initial troponin upon admission was 32 followed by 34 and 34 respectively. For what ever reason it was repeated on the fourth and was 52, 72 and 231. She has had passive congestion with elevated liver function test. Chest x-rays have revealed volume overload and congestive heart failure additionally, she had runs of ventricular tachycardia. She is already on amiodarone and for a while was placed on lidocaine. She is now off lidocaine, is no longer having ventricular tachycardia and is in sinus rhythm with a ventricular paced rhythm. All of her EKGs have showed a paced rhythm. She has had no fewer than 11 EKGs since she has been in this hospital this time Her other medical problems are numerous. She has an ICD in place. She has longstanding asthma. She has coronary disease. Her last angiogram was in early April 2019 now almost 3 years ago. This revealed no significant lesions on the left and a stented right coronary artery with no in-stent restenosis. She has had chronic intermittent episodes of heart failure, atrial fibrillation, GI bleeding with anticoagulation, dyslipidemia, sleep apnea, prior tobacco abuse and chronic underlying kidney disease with exacerbations associated with heart failure Angiography is being considered however her renal insufficiency has precluded this. Today she describes shortness of breath at rest with intermittent discomfort all over her chest and abdomen. She is anxious and just does not feel well. She understands the severity of her underlying illnesses. Vitals/I&O/Wt Last Vital Signs Temp 97.7 F 03/24/22 03:34 Pulse 70 03/24/22 09:04 Resp 16 03/24/22 09:04 BP 104/67 03/23/22 19:00 Pulse Ox 98 03/24/22 09:04 O2 Del Method 03/24/22 09:04 O2 Flow Rate 2 03/24/22 09:04 FiO2 30 03/17/22 19:47 03/23/22 03/24/22 03/24/22 22:59 06:59 14:59 Intake Total 500 / 800 200 / 1000 Output Total 700 / 700 450 / 1150 Balance -200 / 100 -250 / -150 Physical Exam Narrative: GENERAL: In general she looks ill, mildly short of breath but is able to complete sentences HEENT: Exam within normal limits. NECK: Supple without jugular vein distention. The carotid upstroke is normal wit hout bruits. BACK: Exam normal. LUNGS: Decreased breath sounds with occasional wheezes. HEART: Regular rate and rhythm. ABDOMEN: Benign without organomegaly or tenderness. EXTREMITIES: No edema. NEUROLOGIC: Exam normal. SKIN: Unremarkable. Urinary Catheter Management: Yu: Cath Placed During This Visit: yes Reason for Continuing Indwelling Catheter: Accurate Measurement of Urinary Output in Critically Ill Patients Urinary Catheter Date of Insertion: 03/16/22 Urinary Catheter Time of Insertion: 20:45 Data 03/22/22 02:30 03/24/22 03:50 A&P Assessment and plan (1) Elevated liver enzymes: (2) Wide-complex tachycardia: (3) Troponin level elevated: (4) Hyponatremia: (5) Hyperkalemia: (6) Acute kidney injury: (7) CHF exacerbation: (8) ICD (implantable cardioverter-defibrillator), dual, in situ: (9) Gout: (10) Chronic systolic (congestive) heart failure: (11) Chronic episodic atrial fibrillation: (12) Smoking: (13) Atherosclerotic heart disease of [place] coronary artery with other forms of angina pectoris: (14) Cardiomyopathy: Qualifiers: Cardiomyopathy type: ischemic Qualified Code(s): I25.5 - Ischemic cardiomyopathy (15) Sleep apnea: Qualifiers: Sleep apnea type: obstructive Qualified Code(s): G47.33 - Obstructive sleep apnea (adult) (pediatric) (16) Ventricular tachycardia: Plan She remains seriously acutely and chronically ill. She is currently not a good candidate for coronary angiography due to her renal insufficiency primarily. Her creatinine is back up to 2.2 today after being as low as 1.92 days ago. Additionally, she is very tenuous from a pulmonary and cardiac standpoint. She is off the lidocaine. Amiodarone remains in place. Her other medications appear appropriate for her underlying medical problems. She is fully anticoagulated with Lovenox. I am going to decrease that to once daily due to her renal insufficiency. At this point we will continue to hold on angiography. Attestations Medical Necessity Statement*: ICU treatment required for serious underlying illnesses as mentioned above. Coding Level of Care Code Established Pt Acute Squaring Shear Operator for Claudiag Fwd Patient Type Established History Comprehensive Exam Comprehensive Medical Decision Making High Complexity Diagnoses Elevated liver enzymes R74.8 Wide-complex tachycardia R00.0 Troponin level elevated R77.8 Hyponatremia E87.1 Hyperkalemia E87.5 Acute kidney injury N17.9 CHF exacerbation I50.9 ICD (implantable cardioverter-defibrillator), dual, in situ Z95.810 Gout M10.9 Chronic systolic (congestive) heart failure I50.22 Chronic episodic atrial fibrillation I48.20 Smoking F17.200 Atherosclerotic heart disease of [place] coronary artery with other forms of angina pectoris I25.118 Cardiomyopathy I25.5 Cardiomyopathy type: ischemic Sleep apnea G47.33 Sleep apnea type: obstructive Ventricular tachycardia I47.2
[2022-03-24] MEDS: sodium chloride 1 gm Tablet PO ×2 (10:25→17:21)
[2022-03-24] MEDS: clopidogrel 75 mg Tablet PO (10:25)
[2022-03-24] MEDS: sennosides-docusate Tablet 1 TAB PO (10:26)
[2022-03-24] MEDS: aspirin 81 mg Chew Tablet PO (10:26)
[2022-03-24] MEDS: potassium chloride ER 20 mEq Tablet 40 MEQ PO (10:26)
[2022-03-24] MEDS: amiodarone 200 mg Tablet 400 MG PO (10:26)
[2022-03-24] MEDS: sodium chloride 0.9% 1,000 ML 75 ML IV (12:32)
[2022-03-24] MEDS: cefTRIAXone 1,000 MG in sodium chloride 0.9% (plus) 50 ML 100 MG IV (12:32)
[2022-03-24 16:56] LABS: Anion Gap 14.1 (5-19); Blood Urea Nitrogen 71 mg/dL (8-23); Calcium 9.4 mg/dL (8.5-10.5); Carbon Dioxide 29 mmol/L (22-29); Chloride 86 mmol/L (98-107); Glomerular Filtration Rate 28.1 mL/min (90-130); Glucose 134 mg/dL (65-115); Osmolality Calculated 283 mOsm/kg (285-295); Potassium 4.1 mmol/L (3.5-5.1); Sodium 125 mmol/L (136-145)
--- NOTE | 2022-03-24 17:02 | P.PN_ITS ---
Subjective Subjective: Patient was seen and examined this morning, continues to be lethargic, weak. Serum sodium is 123 this morning. Gentle IV hydration has been reinitiated with normal saline 75 cc an hour. Along with salt tablets. LFTs continue to improve. Has been off Lasix. Currently has decent urine output. Medications: Reviewed: Yes Medication Review Details: Generic Name Dose Route Start Last Admin Trade Name Freq PRN Reason Stop Dose Admin Acetaminophen 500 mg 03/16/22 00:12 03/18/22 02:13 Acetaminophen 50 0 Mg Tablet PO 500 mg Q4H PRN Administration fever Albuterol/Ipratrop ium 3 ml 03/16/22 00:45 03/22/22 13:24 Ipratropium-Albu terol 3 Ml Neb INHALATION 3 ml Q6H PRN Administration SHORTNESS OF AUREA TH Allopurinol 300 mg 03/16/22 09:00 03/19/22 08:33 Allopurinol 300 Mg Tablet PO 300 mg DAILY MINGO Administration Amiodarone HCl 400 mg 03/16/22 09:00 03/23/22 09:45 Amiodarone 200 M g Tablet PO 400 mg DAILY MINGO Administration Aspirin 81 mg 03/16/22 09:00 03/23/22 09:46 Aspirin 81 Mg Ch ew Tablet PO 81 mg DAILY MINGO Administration Atorvastatin Calci um 80 mg 03/16/22 09:00 03/19/22 08:33 Atorvastatin 40 Mg Tablet PO 80 mg DAILY MINGO Administration Diclofenac Sodium 1 applic 03/17/22 08:24 03/22/22 20:38 Diclofenac 1% To pical Gel 100 Gm TOPICAL 1 applic QID PRN Administration pain Enoxaparin Sodium 110 mg 03/21/22 18:00 03/22/22 18:02 Enoxaparin 120 M g/0.8 Ml Syringe SUBCUT 110 mg Q24H MINGO Administration Norepinephrine Bit artrate 4 mg 254 mls @ 0 mls/h r 03/17/22 12:00 03/21/22 19:00 / Dextrose IV Infused .Q0M MINGO Titration Protocol Per Protocol Nitroglycerin/Dext letha 50 mg in 250 mls @ 0 mls/hr 03/18/22 10:15 03/20/22 18:[address] ip IV Infused .Q0M MINGO Titration Protocol Per Protocol Ceftriaxone Sodium 1,000 mg/ 50 mls @ 100 mls/ hr 03/19/22 13:30 03/23/22 13:09 Sodium Chloride IV 100 mls/hr Q24H MINGO Administration Protocol Lidocaine HCl/Dext letha 2,000 mg in 500 m ls @ 30 mls/hr 03/20/22 16:30 03/23/22 00:47 Lidocaine Drip IV Not Given .[id number] MINGO 2 MG/MIN Methylprednisolone Sodium Succinate 40 mg 03/22/22 12:00 03/23/22 13:04 Methylprednisolo ne Sod Succ 40 Mg/ Ml Inj IVP 40 mg Q12H MINGO Administration Metoclopramide HCl 5 mg 03/19/22 10:17 03/23/22 00:53 Metoclopramide 5 Mg/Ml Sdv 2 Ml IVP 5 mg Q6H PRN Administration NAUSEA AND VOMITI NG Morphine Sulfate 15 mg 03/20/22 08:56 03/22/22 20:37 Morphine Ir 15 M g Tablet PO 15 mg Q6H PRN Administration MODERATE TO SEVER E PAIN Ondansetron HCl 4 mg 03/16/22 00:45 03/22/22 22:51 Ondansetron 2 Mg /Ml Sdv 2 Ml IVP 4 mg Q6H PRN Administration NAUSEA AND VOMITI NG Potassium Chloride 40 meq 03/21/22 09:00 03/23/22 09:46 Potassium Chlori de Er 20 Meq Table t PO Not Given DAILY MINGO Senna/Docusate Sod ium 1 tab 03/16/22 09:00 03/23/22 09:46 Sennosides-Docus ate Tablet PO 1 tab DAILY MINGO Administration Vitals/I&O/Wt Last Vital Signs Temp 97.7 F 03/24/22 03:34 Pulse 70 03/24/22 16:00 Resp 20 H 03/24/22 16:00 BP 97/68 03/24/22 16:00 Pulse Ox 98 03/24/22 16:00 O2 Del Method 03/24/22 09:04 O2 Flow Rate 2 03/24/22 09:04 FiO2 30 03/17/22 19:47 03/24/22 03/24/22 03/24/22 06:59 14:59 22:59 Intake Total 200 / 1050 480 / 480 Output Total 450 / 1150 Balance -250 / -100 480 / 480 Physical Exam Resp: OTHER: Diminished air entry bilaterally Cardio: COMMON NORMALS: regular rate, regular rhythm, S1 normal heart sound present, S2 normal heart sound present, No gallops present (Cardio), No murmurs present (Cardio), No rub (Cardio) and Peripheral pulses 2+ throughout RATE: regular rate RHYTHM: regular rhythm HEART SOUNDS: S1 normal heart sound present and S2 normal heart sound present PERIPHERAL PULSES: Peripheral pulses 2+ throughout OTHER: Irregularly irregular rhythm, S1-S2 variable intensity GI: COMMON NORMALS: Normal to inspection, nondistended, normoactive bowel sounds present, Soft to palpation, non-tender, No hepatosplenomegaly present and no masses AUSCULTATION: Yes normoactive bowel sounds PALPATION: Yes Soft to palpation and Yes No hepatosplenomegaly present RECTAL EXAM: deferred Extremity: COMMON NORMALS: no clubbing, cyanosis or edema and no pedal edema NARRATIVE EXTREMITY EXAM: 2+ bilateral lower extremity pitting edema Urinary Catheter Management: Yu: Cath Placed During This Visit: yes Reason for Continuing Indwelling Catheter: Accurate Measurement of Urinary Output in Critically Ill Patients Urinary Catheter Date of Insertion: 03/16/22 Urinary Catheter Time of Insertion: 20:45 Data 03/22/22 02:30 03/24/22 16:29 A&P Assessment and plan (1) CHF exacerbation: (2) ICD (implantable cardioverter-defibrillator), dual, in situ: (3) Chronic episodic atrial fibrillation: (4) Hyperkalemia: (5) Hyponatremia: Plan 65 year old female who has history of chronic atrial fibrillation, ischemic cardiomyopathy PCI to right coronary mixed systolic diastolic congestive heart failure status post AICD placement(EF 30%) was brought in with chief complaint of worsening shortness of breath as well as cough going on for the last few days extremely bad yesterday, she was being treated as an outpatient by her PCP with azithromycin Augmentin, and prednisone for possible bronchitis. Currently she is being managed for Assessment: Ventricular tachycardia: Decompensated heart failure: Impending cardiogenic shock Worsening YUDI on CKD: Baseline serum creatinine appears to be around 1.5-1.6: Possibly secondary CRS 2/2 decompensated heart failure NSTEMI : Likely type II NSTEMI in the setting of renal failure and decompensated heart failure. Transaminitis: Possibly secondary to congestive hepatopathy secondary to decompensated heart failure.Will get ultrasound abdomen. Possibly hepatitis panel. Medication reviewed: She is on amiodarone. Currently also on Augmentin. Will DC Augmentin. We will hold allopurinol and atorvastatin. Will need monitoring for cholecystitis/not to forget acalculous cholecystitis.Currently total bilirubin is normal. History of chronic atrial fibrillation History of coronary artery disease Hyponatremia Bronchitis Tendinopathy of rotator cuff: History of gout Plan: X-ray chest: Is showing diffuse pulmonary vascular congestion, elevated proBNP: [id number], Ultrasound abdomen: Mild hepatic steatosis Troponin trend:52-72- Serial EKG: Paced rhythm no acute ST-T wave changes Was on Lasix drip running at 5 mg/hr, was on metolazone (thiazide like diuretic) 10 mg p.o. daily, has been discontinued due to hyponatremia. She has been off IV diuretics, continue to make good urine of diuresis Was On heparin drip: Has been switched to therapeutic Lovenox renally dosed. Was on nitro drip Monitor intake output charting Monitor electrolytes K>4 ,MG>2 Monitor daily weight Avoid nephrotoxic's Telemetry monitoring Continue amiodarone Was on lidocaine drip: Has been weaned off Continue aspirin Hold Eliquis Plan was to use tolvaptan currently not available Fluid restriction to 1200 cc Was on Augmentin: Has been discontinued due to transaminitis.Will switch to Rocephin. Nephrology on board Cardiology on board: Updated plan for today: She has been started on gentle IV hydration for hyponatremia, along with salt tablets, monitor BMP. CODE STATUS: Full code DVT prophylaxis: Not needed on Eliquis Attestations Medical Necessity Statement*: Patient is to be in hospital for management of, hyponatremia, heart failure, renal failure. Time Spent in Patient Care: Greater than 35 minutes (>than 50% of time spent in counselling and/or direct pt care on unit) . Critical Care Time: The high probability of a clinically significant, sudden or life threatening deterioration of the patient's [] system(s) required my full and direct attention, intervention and personal management. The critical care t rosy is as shown. This time is in addition to time spent performing any reported procedures but includes the following: [x] Data and vital sign review and interpretation [x] Patient assessment, examination and intervention [x] Documentation [x] Medication orders and management Critical Care Time (min): 30 Coding Level of Care Code Acute Product Marketing Executive for Chg Fwd Diagnoses CHF exacerbation I50.9 ICD (implantable cardioverter-defibrillator), dual, in situ Z95.810 Chronic episodic atrial fibrillation I48.20 Hyperkalemia E87.5 Hyponatremia E87.1
[2022-03-24] MEDS: enoxaparin 120 mg/0.8 mL Syringe 110 MG SUBCUT (17:21)
--- NOTE | 2022-03-24 17:42 | PC.NURSE ---
A visitor came to the desk to inform us that the patients sister who has been visiting is flu A positive.
--- NOTE | 2022-03-24 20:00 | PC.NURSE ---
Constipation Patient states that she has not had a bowel movement in over a week and feels constipated. Senna-S administered in AM. Dr. Bashir contacted and one time order received for 20 gm lactulose PO. See MAR for administration.
--- NOTE | 2022-03-24 20:07 | XRR_ITS ---
PROCEDURE INFORMATION: Exam: XR Chest Exam date and time: 03/24/2022 8:23 PM Age: 67 years old Clinical indication: Shortness of breath; Prior surgery; Surgery type: Pacer; Patient HX: Continued SOB. TECHNIQUE: Imaging protocol: Radiologic exam of the chest. Views: 1 view. COMPARISON: CR XR chest 1V portable [id number] 03/21/2022 8:12 AM FINDINGS: Lungs: Mild venous congestion again seen. Hazy lung base opacities and small effusions are seen. These are mildly improved. Pleural spaces: No pneumothorax. Heart/Mediastinum: The heart remains enlarged. Left-sided pacing device. Bones/joints: Unremarkable. XR/XR chest 1V portable [id number] IMPRESSION: Slightly improving bibasilar lung aeration from 3 days ago.
[2022-03-24] MEDS: ipratropium-albuterol 3 mL Neb INHALATION (20:15)
[2022-03-24] MEDS: lactulose oral liq 20 gm/30 mL UDC PO (20:23)
[2022-03-24] MEDS: ALPRAZolam 0.5 mg Tablet 0.125 MG PO (21:45)
--- NOTE | 2022-03-24 21:45 | PC.NURSE ---
Physician Communication After transferring patient from the chair to the bed, patient complaining of feeling short of breath; RR ranging from 19-25, oxygen saturation in the mid 90s on 3 LNC, expiratory wheezing in bilateral lobes, patient exhibiting moist sounding cough. Education provided on deep breathing, sitting up, and tripoding. Patient stated, I don't know why no one believes that I feel short of breath, just because my sats are fine doesn't mean I don't know whats going on inside in addition to stating that she felt anxious. Reassurances provided to patient that her respiratory status is of importance and will be taken seriously. Respiratory therapy notified; breathing treatment to be administered. Dr. Bashir contacted and order received to stop NS and to obtain a chest x-ray. Once chest xray was obtained, order received for 0.125 mg xanax PO once for anxiety. Medication administered per JUN.
[2022-03-25] VITALS (28 sets, daily range): BP systolic 91–125; BP diastolic 58–86; PULSE 69–82; RESP 15–27; TEMP 36.2–37.1; O2SAT 94–98
[2022-03-25 05:10] LABS: Basophils % 0.1 %; Hematocrit 36.1 % (37.0-47.0); Hemoglobin 11.8 g/dL (11.5-15.3); Lymphocytes # 0.8 10^3/uL (0.8-4.8); Lymphocytes % 9.6 %; Mean Corpuscular HGB Conc 32.7 g/dL (30.0-36.0); Mean Corpuscular Hemoglobin 32.6 pg (28.0-34.0); Mean Corpuscular Volume 99.7 fl (81-99); Mean Platelet Volume 11.3 fL (7.4-10.4); Monocytes # 0.8 10^3/uL (0.2-0.9); Monocytes % 9.5 %; Neutrophils # 6.61 10^3/uL (1.8-7.7); Neutrophils % 80.1 %; Nucleated Red Blood Cells % 0 %; Platelet Count 147 10^3/cmm (130-400); Red Blood Count 3.62 10^6/uL (4.1-5.3); Red Cell Distribution Width 14.9 % (12.1-15.1); White Blood Count 8.3 10^3/uL (4.0-10.0)
[2022-03-25 05:35] LABS: Alanine Aminotransferase 236 U/L (0-33); Albumin Level 3.4 g/dL (3.5-5.2); Alkaline Phosphatase 103 U/L (35-105); Anion Gap 14.7 (5-19); Aspartate Amino Transferase 35 U/L (0-32); Blood Urea Nitrogen 74 mg/dL (8-23); Calcium 9.3 mg/dL (8.5-10.5); Carbon Dioxide 26 mmol/L (22-29); Chloride 85 mmol/L (98-107); Glucose 173 mg/dL (65-115); Magnesium 2.4 mg/dL (1.7-2.3); Osmolality Calculated 280 mOsm/kg (285-295); Potassium 3.7 mmol/L (3.5-5.1); Sodium 122 mmol/L (136-145); Total Bilirubin 0.5 mg/dL (0.15-1.2); Total Protein 6.4 g/dL (6.6-8.7)
--- NOTE | 2022-03-25 07:08 | PM.PN ---
Subjective Subjective: developed shortness of breath after 500 ml NSS yesterday; IVF stopped OOB to chair, had difficulty sleeping due to back pain uncomfortable bed Mild dyspnea is unchanged Vitals/I&O/Wt Last Vital Signs Temp 98.6 F 03/25/22 04:00 Pulse 69 03/25/22 06:00 Resp 19 H 03/25/22 06:00 BP 109/66 03/25/22 06:00 Pulse Ox 98 03/25/22 06:00 O2 Del Method 03/25/22 04:00 O2 Flow Rate 3 03/25/22 04:00 FiO2 30 03/17/22 19:47 03/24/22 03/25/22 03/25/22 22:59 06:59 14:59 Intake Total 757.5 / 1237.5 480 / 1717.5 Output Total 800 / 800 650 / 1450 Balance -42.5 / 437.5 -170 / 267.5 Physical Exam Urinary Catheter Management: Yu: Cath Placed During This Visit: yes Reason for Continuing Indwelling Catheter: Accurate Measurement of Urinary Output in Critically Ill Patients Urinary Catheter Date of Insertion: 03/16/22 Urinary Catheter Time of Insertion: 20:45 Data 03/25/22 05:00 03/25/22 05:00 CXR: Radiologist's impression: Lungs: Mild venous congestion again seen. Hazy lung base opacities and small effusions are seen. These are mildly improved. Pleural spaces: No pneumothorax. Heart/Mediastinum: The heart remains enlarged. Left-sided pacing device. Bones/joints: Unremarkable. A&P Assessment and plan (1) Acute kidney injury: seen via telemedicine with assistance of RN at bedside Plan 1. Hyponatremia, sodium lower. IV NSS did not improve sodium. 100 ml doses of 3% temporarily improved sodium. Will begin 3% infusion to get sodium to 126 or higher. Increase NaCl oral to 1 g TID. begin low dose furosemide. Q3h serum Na 2. Acute kidney injury, urine output improved 3. Decompensated heart failure. 4. Chronic kidney disease: baseline Cr 1.5 - 1.6 mg/dL, small kidneys on renal us Attestations Medical Necessity Statement*: see above Time Spent in Patient Care: 16 - 35 minutes Coding Level of Care Code Acute Laundry Marker Supervisor for Miguelina Lynch Diagnoses Acute kidney injury N17.9
[2022-03-25] MEDS: ipratropium-albuterol 3 mL Neb INHALATION ×2 (07:53→15:29)
[2022-03-25] MEDS: amiodarone 200 mg Tablet 400 MG PO (08:17)
[2022-03-25] MEDS: aspirin 81 mg Chew Tablet PO (08:17)
[2022-03-25] MEDS: sennosides-docusate Tablet 1 TAB PO (08:17)
[2022-03-25] MEDS: clopidogrel 75 mg Tablet PO (08:17)
[2022-03-25] MEDS: sodium chloride 1 gm Tablet PO ×3 (08:17→20:12)
[2022-03-25] MEDS: potassium chloride ER 20 mEq Tablet 40 MEQ PO (08:17)
--- NOTE | 2022-03-25 09:35 | XRR_ITS ---
PROCEDURE INFORMATION: Exam: XR Chest Exam date and time: 03/25/2022 1:23 PM Age: 67 years old Clinical indication: Cough; Additional info: Increased cough and shortness of breath TECHNIQUE: Imaging protocol: Radiologic exam of the chest. Views: 1 view. COMPARISON: CR (CHEST, ) 03/24/2022 8:23 PM FINDINGS: Tubes, catheters and devices: AICD. Lungs: Interstitial prominence, basilar airspace disease, and chronic granulomatous disease. Pleural spaces: Left pleural effusion. Heart/Mediastinum: Borderline cardiomegaly. Bones/joints: Osteopenia and degenerative change. When correlating with the previous study, no significant interval changes are present. XR/XR chest 1V portable [id number] IMPRESSION: Interstitial prominence, basilar airspace disease, and chronic granulomatous disease. Left pleural effusion.
--- NOTE | 2022-03-25 10:16 | PM.PN ---
Subjective Subjective: Patient is extremely short of breath this morning. She is barely able to speak. She cannot put together complete sentences. She also cannot lie down without being short of breath. She complains of chest and back pain. She is tremulous. Her creatinine is down to 1.7 today. Vitals/I&O/Wt Last Vital Signs Temp 98.8 F 03/25/22 09:00 Pulse 69 03/25/22 09:00 Resp 20 H 03/25/22 09:00 BP 108/69 03/25/22 09:00 Pulse Ox 96 03/25/22 09:00 O2 Del Method 03/25/22 09:00 O2 Flow Rate 3 03/25/22 09:00 FiO2 30 03/17/22 19:47 03/24/22 03/25/22 03/25/22 22:59 06:59 14:59 Intake Total 757.5 / 1237.5 480 / 1717.5 298 / 298 Output Total 800 / 800 650 / 1450 Balance -42.5 / 437.5 -170 / 267.5 298 / 298 Physical Exam Narrative: GENERAL: In general she is very short of breath. Cannot put together a sentence without stopping. HEENT: Exam within normal limits. NECK: Supple without jugular vein distention. The carotid upstroke is normal without bruits. BACK: Exam normal. LUNGS: Decreased breath sounds. Occasional scattered wheezes. HEART: Regular rate and rhythm. ABDOMEN: Benign without organomegaly or tenderness. EXTREMITIES: No edema. NEUROLOGIC: Exam normal. SKIN: Unremarkable. Urinary Catheter Management: Yu: Cath Placed During This Visit: yes Reason for Continuing Indwelling Catheter: Accurate Measurement of Urinary Output in Critically Ill Patients Urinary Catheter Date of Insertion: 03/16/22 Urinary Catheter Time of Insertion: 20:45 Data 03/25/22 05:00 03/25/22 05:00 A&P Assessment and plan (1) Elevated liver enzymes: (2) Wide-complex tachycardia: (3) Troponin level elevated: (4) Hyponatremia: (5) Hyperkalemia: (6) Acute kidney injury: (7) CHF exacerbation: (8) High risk medication use: (9) ICD (implantable cardioverter-defibrillator), dual, in situ: (10) Chronic systolic (congestive) heart failure: (11) Chronic episodic atrial fibrillation: (12) Smoking: (13) Atherosclerotic heart disease of [place] coronary artery with other forms of angina pectoris: (14) Dyslipidemia: Plan This woman is extraordinarily ill. At this point she is not a candidate for coronary angiography. She is too short of breath and cannot breathe unless she is sitting upright. Creatinine is stable and probably is at its lowest point. Continue current therapy. Attestations Medical Necessity Statement*: Hospitalization for exacerbation of COPD and CHF. Coding Level of Care Code Established Pt Acute Chapter Relations Administrator for Miguelina Lynch Patient Type Established History Comprehensive Exam Comprehensive Medical Decision Making High Complexity Diagnoses Elevated liver enzymes R74.8 Wide-complex tachycardia R00.0 Troponin level elevated R77.8 Hyponatremia E87.1 Hyperkalemia E87.5 Acute kidney injury N17.9 CHF exacerbation I50.9 High risk medication use Z79.899 ICD (implantable cardioverter-defibrillator), dual, in situ Z95.810 Chronic systolic (congestive) heart failure I50.22 Chronic episodic atrial fibrillation I48.20 Smoking F17.200 Atherosclerotic heart disease of [place] coronary artery with other forms of angina pectoris I25.118 Dyslipidemia E78.5
[2022-03-25] MEDS: benzonatate 100 mg Capsule PO (10:39)
[2022-03-25] MEDS: acetaminophen 500 mg Tablet PO (10:39)
[2022-03-25] MEDS: sodium chloride 3% 500 ML 30 ML IV (11:02)
[2022-03-25 11:34] LABS: Sodium 125 mmol/L (136-145)
[2022-03-25] MEDS: cefTRIAXone 1,000 MG in sodium chloride 0.9% (plus) 50 ML 100 MG IV (12:48)
[2022-03-25] MEDS: FUROsemide 40 mg Tablet PO ×2 (12:48→20:12)
[2022-03-25 14:03] LABS: Sodium 125 mmol/L (136-145)
[2022-03-25] MEDS: cetylpyridinium Lozenge 1 EACH MUCOUS MEM ×2 (15:42→22:51)
--- NOTE | 2022-03-25 16:08 | PC.NURSE ---
In the morning and at approximately 1530, with a great amount of encouragement and assistance from physical therapy, patient ambulated with assistance of walker approximately 9 feet from chair to end of bed. Patient refused further attempts at ambulation at this time. Patient states she can not breathe when ambulating or upon transfer from bed to chair. Oxygen saturation on monitor with accurate appearing waveform remains in mid to high 90's. Patient refuses xanax at this time. Patient states, I want you to know I am at my limit on all of this and will not be doing any more. Discussed with patient and family at bedside about possible rehab after discharge as patient lives alone and reports she will have to walk approximately 20 feet to enter her home. At this time, patient refuses possibility of rehab.
--- NOTE | 2022-03-25 16:40 | P.PN_ITS ---
Subjective Subjective: Patient was seen and examined this morning, was complaining of shortness of breath as well as cough, , p.o. Lasix has been initiated, on gentle IV hydration, salt tablets for persistent hyponatremia. Medications: Reviewed: Yes Medication Review Details: Generic Name Dose Route Start Last Admin Trade Name Freq PRN Reason Stop Dose Admin Acetaminophen 500 mg 03/16/22 00:12 03/25/22 10:39 Acetaminophen 50 0 Mg Tablet PO 500 mg Q4H PRN Administration fever Albuterol/Ipratrop ium 3 ml 03/16/22 00:45 03/25/22 15:29 Ipratropium-Albu terol 3 Ml Neb INHALATION 3 ml Q6H PRN Administration SHORTNESS OF AUREA TH Allopurinol 300 mg 03/16/22 09:00 03/19/22 08:33 Allopurinol 300 Mg Tablet PO 300 mg DAILY MINGO Administration Amiodarone HCl 400 mg 03/16/22 09:00 03/25/22 08:17 Amiodarone 200 M g Tablet PO 400 mg DAILY MINGO Administration Aspirin 81 mg 03/16/22 09:00 03/25/22 08:17 Aspirin 81 Mg Ch ew Tablet PO 81 mg DAILY MINGO Administration Atorvastatin Calci um 80 mg 03/16/22 09:00 03/19/22 08:33 Atorvastatin 40 Mg Tablet PO 80 mg DAILY MINGO Administration Benzocaine 1 each 03/25/22 13:29 03/25/22 15:42 Cetylpyridinium Lozenge MUCOUS MEM 1 each Q2H PRN Administration SORE THROAT Benzonatate 100 mg 03/25/22 09:36 03/25/22 10:39 Benzonatate 100 Mg Capsule PO 100 mg TID PRN Administration COUGH Clopidogrel Bisulf ate 75 mg 03/24/22 09:00 03/25/22 08:17 Clopidogrel 75 M g Tablet PO 75 mg DAILY MINGO Administration Diclofenac Sodium 1 applic 03/17/22 08:24 03/22/22 20:38 Diclofenac 1% To pical Gel 100 Gm TOPICAL 1 applic QID PRN Administration pain Enoxaparin Sodium 110 mg 03/21/22 18:00 03/24/22 17:21 Enoxaparin 120 M g/0.8 Ml Syringe SUBCUT 110 mg Q24H MINGO Administration Furosemide 40 mg 03/25/22 12:37 03/25/22 12:48 Furosemide 40 Mg Tablet PO 40 mg BID@08,16 MINGO Administration Norepinephrine Bit artrate 4 mg 254 mls @ 0 mls/h r 03/17/22 12:00 03/21/22 19:00 / Dextrose IV Infused .Q0M MINGO Titration Protocol Per Protocol Nitroglycerin/Dext letha 50 mg in 250 mls @ 0 mls/hr 03/18/22 10:15 03/20/22 18:[address] ip IV Infused .Q0M MINGO Titration Protocol Per Protocol Ceftriaxone Sodium 1,000 mg/ 50 mls @ 100 mls/ hr 03/19/22 13:30 03/25/22 13:24 Sodium Chloride IV Infused Q24H MINGO Infusion Protocol Sodium Chloride 500 mls @ 30 mls/ hr 03/25/22 10:45 03/25/22 11:02 Sodium Chloride 3% IV 30 mls/hr .[id number] MINGO Administration Methylprednisolone Sodium Succinate 40 mg 03/25/22 09:00 03/25/22 08:17 Methylprednisolo ne Sod Succ 40 Mg/ Ml Inj IVP 40 mg Q24H MINGO Administration Metoclopramide HCl 5 mg 03/19/22 10:17 03/23/22 00:53 Metoclopramide 5 Mg/Ml Sdv 2 Ml IVP 5 mg Q6H PRN Administration NAUSEA AND VOMITI NG Ondansetron HCl 4 mg 03/16/22 00:45 03/23/22 20:59 Ondansetron 2 Mg /Ml Sdv 2 Ml IVP 4 mg Q6H PRN Administration NAUSEA AND VOMITI NG Potassium Chloride 40 meq 03/21/22 09:00 03/25/22 08:17 Potassium Chlori de Er 20 Meq Table t PO 40 meq DAILY MINGO Administration Senna/Docusate Sod ium 1 tab 03/16/22 09:00 03/25/22 08:17 Sennosides-Docus ate Tablet PO 1 tab DAILY MINGO Administration Sodium Chloride 1 gm 03/25/22 15:00 03/25/22 15:14 Sodium Chloride 1 Gm Tablet PO 1 gm TID MINGO Administration Vitals/I&O/Wt Last Vital Signs Temp 98.6 F 03/25/22 15:00 Pulse 70 03/25/22 15:31 Resp 18 03/25/22 15:15 BP 123/68 03/25/22 15:00 Pulse Ox 97 03/25/22 15:15 O2 Del Method 03/25/22 15:15 O2 Flow Rate 2 03/25/22 15:15 FiO2 30 03/17/22 19:47 03/25/22 03/25/22 03/25/22 06:59 14:59 22:59 Intake Total 480 / 1717.5 570 / 570 Output Total 650 / 1450 850 / 850 Balance -170 / 267.5 570 / 570 -850 / -280 Physical Exam Resp: OTHER: Diminished air entry bilaterally Cardio: COMMON NORMALS: regular rate, regular rhythm, S1 normal heart sound present, S2 normal heart sound present, No gallops present (Cardio), No murmurs present (Cardio), No rub (Cardio) and Peripheral pulses 2+ throughout RATE: regular rate RHYTHM: regular rhythm HEART SOUNDS: S1 normal heart sound present and S2 normal heart sound present PERIPHERAL PULSES: Peripheral pulses 2+ throughout GI: COMMON NORMALS: Normal to inspection, nondistended, normoactive bowel sounds present, Soft to palpation, non-tender, No hepatosplenomegaly present and no masses AUSCULTATION: Yes normoactive bowel sounds PALPATION: Yes Soft to palpation and Yes No hepatosplenomegaly present RECTAL EXAM: deferred Extremity: COMMON NORMALS: no clubbing, cyanosis or edema and no pedal edema NARRATIVE EXTREMITY EXAM: 2+ bilateral lower extremity pitting edema Urinary Catheter Management: Yu: Cath Placed During This Visit: yes Reason for Continuing Indwelling Catheter: Accurate Measurement of Urinary Output in Critically Ill Patients Urinary Catheter Date of Insertion: 03/16/22 Urinary Catheter Time of Insertion: 20:45 Data 03/25/22 05:00 03/25/22 13:39 A&P Assessment and plan (1) CHF exacerbation: (2) ICD (implantable cardioverter-defibrillator), dual, in situ: (3) Chronic episodic atrial fibrillation: (4) Hyperkalemia: (5) Hyponatremia: Plan 65 year old female who has history of chronic atrial fibrillation, ischemic cardiomyopathy PCI to right coronary mixed systolic diastolic congestive heart failure status post AICD placement(EF 30%) was brought in with chief complaint of worsening shortness of breath as well as cough going on for the last few days extremely bad yesterday, she was being treated as an outpatient by her PCP with azithromycin Augmentin, and prednisone for possible bronchitis. Currently she is being managed for Assessment: Ventricular tachycardia: Decompensated heart failure: Impending cardiogenic shock Worsening YUDI on CKD: Baseline serum creatinine appears to be around 1.5-1.6: Possibly secondary CRS 2/2 decompensated heart failure NSTEMI : Chronic atrial fibrillation on Eliquis Transaminitis: Possibly secondary to congestive hepatopathy secondary to decompensated heart failure.Will get ultrasound abdomen. Possibly hepatitis panel. Medication reviewed: She is on amiodarone. Currently also on Augmentin. Will DC Augmentin. We will hold allopurinol and atorvastatin. Will need monitoring for acalculous cholecystitis.Currently total bilirubin is normal. History of chronic atrial fibrillation History of coronary artery disease Hyponatremia Bronchitis Tendinopathy of rotator cuff: History of gout Plan: X-ray chest: Showed diffuse pulmonary vascular congestion, elevated proBNP: [id number], subsequent x-ray chest has shown improvement in pulm vascular congestion as well as effusion. Ultrasound abdomen: Mild hepatic steatosis Troponin trend: Has been done, during episodes of chest pain. Serial EKG: Paced rhythm no acute ST-T wave changes Was on Lasix drip running at 5 mg/hr, and metolazone has been discontinued. Was On heparin drip: Currently on therapeutic anticoagulation with Lovenox, continue aspirin Plavix Was on nitro drip was later stopped. Continue amiodarone Was on lidocaine drip: Has been weaned off Hold Eliquis Plan was to use tolvaptan currently not available Fluid restriction to 1200 cc Was on Augmentin: Has been discontinued due to transaminitis.Will switch to Rocephin. Monitor intake output charting. Monitor electrolytes K>4 ,MG>2 Monitor daily weight Avoid nephrotoxic's Telemetry monitoring Nephrology on board Cardiology on board: Updated plan for today: Continue gentle IV hydration for hyponatremia, along with salt tablets, monitor BMP. Resume p.o. Lasix 40 twice daily. CODE STATUS: Full code DVT prophylaxis: Not needed on Lovenox therapeutic Attestations Medical Necessity Statement*: Patient is still in hospital for management of hyponatremia. Coding Level of Care Code Acute Pest Control Chemical Technician for Chg Fwd Exam Expanded Problem Focused Diagnoses CHF exacerbation I50.9 ICD (implantable cardioverter-defibrillator), dual, in situ Z95.810 Chronic episodic atrial fibrillation I48.20 Hyperkalemia E87.5 Hyponatremia E87.1
[2022-03-25 17:36] LABS: Sodium 127 mmol/L (136-145)
--- NOTE | 2022-03-25 17:47 | PC.NURSE ---
Telephone order read back and verified from Dr. Stephenson to stop 3% sodium drip for this evening and to recheck sodium in the morning.
[2022-03-25] MEDS: enoxaparin 120 mg/0.8 mL Syringe 110 MG SUBCUT (18:36)
[2022-03-25] MEDS: ALPRAZolam 0.5 mg Tablet 0.125 MG PO (20:13)
[2022-03-25] MEDS: nitroglycerin 0.4 mg sublingual Tablet SUBLINGUAL (21:35)
--- NOTE | 2022-03-25 21:59 | ECG_ITS ---
[facility] Test Date: 2022-03-25 Pat Name: Amber White Department: Room: [facility] Gender: Female Student Success Counselor: : 1955 Requested By: Diane Bashir Order Number: [id number] Anabel MD: Kings Gonzales M.D. Measurements Intervals [place] Rate: 72 P: 119 NH: 224 QRS: -62 QRSD: 199 T: 111 QT: 516 QTc: 565 Interpretive Statements ELECTRONIC ATRIAL PACEMAKER LEFT AXIS DEVIATION [QRS AXIS < -30] Left bundle branch block INTERPRETATION BASED ON A DEFAULT AGE OF 40 YEARS Compared to ECG 03/23/2022 07:57:18 No significant changes Electronically Signed On 03-26-2022 14:57:56 TRANSITION COACH by Kings Gonzales M.D. [id number]
--- NOTE | 2022-03-25 22:00 | PC.NURSE ---
Chest Pain Patient reporting chest discomfort at a 7 on a 1-10 numerical scale; shortness of breath, nausea, and shoulder pain all denied. No diaphoresis noted. One sublingual nitro tablet administered per JUN. Following nitro administration, patient stated chest pain did resolve. Dr. Bashir notified and order received for a troponin and ekg series.
[2022-03-25 23:13] LABS: Troponin(5th) Baseline 167 ng/L (0-10)
--- NOTE | 2022-03-25 23:59 | ECG_ITS ---
[facility] Test Date: 2022-03-26 Pat Name: Amber White Department: Room: [facility] Gender: Female Tombstone Setter: : 1955 Requested By: Diane Bashir Order Number: [id number] Anabel MD: Kings Gonzales M.D. Measurements Intervals [place] Rate: 73 P: 64 NV: 223 QRS: -61 QRSD: 206 T: 111 QT: 501 QTc: 553 Interpretive Statements SINUS RHYTHM WITH FIRST DEGREE AV BLOCK LEFT ATRIAL ENLARGEMENT [-0.15mV P-WAVE IN V1/V2] LEFT AXIS DEVIATION [QRS AXIS < -30] LEFT BUNDLE BRANCH BLOCK [120+ ms QRS DURATION, 80+ ms Q/S IN V1/V2, 85+ ms R IN I/aVL/V5/V6] Compared to ECG 03/25/2022 21:42:30 First degree AV block now present Atrial abnormality now present Atrial-paced complex(es) or rhythm no longer present Electronically Signed On 03-26-2022 15:01:41 CANDY MAKER by Kings Gonzales M.D. [id number]
[2022-03-26] VITALS (25 sets, daily range): BP systolic 94–135; BP diastolic 54–86; PULSE 69–106; RESP 15–27; TEMP 36.5–36.9; O2SAT 90–98
[2022-03-26] MEDS: ondansetron 2 mg/ML SDV 2 mL 4 MG IVP (02:51)
[2022-03-26 03:00] LABS: Troponin 5 2HR 195.9 ng/L (0-10)
[2022-03-26 03:01] LABS: Troponin 5 2HR Delta 28.9 ABS# (0-10)
[2022-03-26 03:19] LABS: Influenza A by IFA positive (Negative); Influenza B by IFA negative (Negative)
[2022-03-26] MEDS: ALPRAZolam 0.5 mg Tablet 0.125 MG PO ×2 (04:02→20:42)
[2022-03-26 04:29] LABS: Basophils % 0.1 %; Eosinophils % 0.3 %; Hematocrit 37.7 % (37.0-47.0); Hemoglobin 12.1 g/dL (11.5-15.3); Lymphocytes # 1.1 10^3/uL (0.8-4.8); Lymphocytes % 10.5 %; Mean Corpuscular HGB Conc 32.1 g/dL (30.0-36.0); Mean Corpuscular Hemoglobin 32.2 pg (28.0-34.0); Mean Corpuscular Volume 100.3 fl (81-99); Mean Platelet Volume 11.6 fL (7.4-10.4); Monocytes # 0.9 10^3/uL (0.2-0.9); Monocytes % 8.2 %; Neutrophils # 8.39 10^3/uL (1.8-7.7); Neutrophils % 79.6 %; Nucleated Red Blood Cells % 0 %; Platelet Count 173 10^3/cmm (130-400); Red Blood Count 3.76 10^6/uL (4.1-5.3); Red Cell Distribution Width 15.2 % (12.1-15.1); White Blood Count 10.5 10^3/uL (4.0-10.0)
[2022-03-26 04:57] LABS: Alanine Aminotransferase 187 U/L (0-33); Albumin Level 3.7 g/dL (3.5-5.2); Alkaline Phosphatase 107 U/L (35-105); Aspartate Amino Transferase 27 U/L (0-32); Blood Urea Nitrogen 69 mg/dL (8-23); Calcium 9.5 mg/dL (8.5-10.5); Carbon Dioxide 27 mmol/L (22-29); Chloride 87 mmol/L (98-107); Globulin 3.4 g/dL (1.3-4.6); Glomerular Filtration Rate 26.4 mL/min (90-130); Glucose 233 mg/dL (65-115); Osmolality Calculated 292 mOsm/kg (285-295); Sodium 127 mmol/L (136-145); Total Bilirubin 0.6 mg/dL (0.15-1.2); Total Protein 7.1 g/dL (6.6-8.7)
[2022-03-26 05:01] LABS: Troponin 5 6HR 233.2 ng/L (0-10)
[2022-03-26 05:02] LABS: Troponin 5 6HR Delta 66.2 ng/L (0-12)
--- NOTE | 2022-03-26 05:51 | PC.NURSE ---
Flu Test Patient complaining of nausea as well as stomach pain. Patient's family member who has visited during this hospital stay is known to be Flu A+. Dr. Bashir contacted and order received for rapid flu swab. Zofran administered for nausea per JUN. Flu swab returned positive for Flu A; Dr. Bashir notified.
--- NOTE | 2022-03-26 06:16 | ECG_ITS ---
[facility] Test Date: 2022-03-26 Pat Name: Amber White Department: Room: [facility]02 Gender: Female Collar Separator: : 1955 Requested By: Diane Bashir Order Number: [id number] Anabel MD: Kings Gonzales M.D. Measurements Intervals [place] Rate: 88 P: 78 MD: 218 QRS: -63 QRSD: 198 T: 104 QT: 447 QTc: 542 Interpretive Statements SINUS RHYTHM WITH FIRST DEGREE AV BLOCK LEFT ATRIAL ENLARGEMENT [-0.15mV P-WAVE IN V1/V2] LEFT AXIS DEVIATION [QRS AXIS < -30] LEFT BUNDLE BRANCH BLOCK [120+ ms QRS DURATION, 80+ ms Q/S IN V1/V2, 85+ ms R IN I/aVL/V5/V6] Compared to ECG 03/26/2022 00:22:00 No significant changes Electronically Signed On 03-26-2022 15:02:09 GRAPHIC MANAGER by Kings Gonzales M.D. [id number]
[2022-03-26] MEDS: amiodarone 200 mg Tablet 400 MG PO (08:05)
[2022-03-26] MEDS: clopidogrel 75 mg Tablet PO (08:05)
[2022-03-26] MEDS: potassium chloride ER 20 mEq Tablet 40 MEQ PO (08:05)
[2022-03-26] MEDS: sennosides-docusate Tablet 1 TAB PO (08:05)
[2022-03-26] MEDS: aspirin 81 mg Chew Tablet PO (08:05)
[2022-03-26] MEDS: FUROsemide 40 mg Tablet PO ×2 (08:05→15:16)
[2022-03-26] MEDS: sodium chloride 1 gm Tablet PO ×3 (08:06→20:42)
--- NOTE | 2022-03-26 10:10 | PC.CHAP ---
Pastoral Care Encounter/Spiritual Assessment Type of Contact [] Declined office systems technology instructor visit [] Patient/Family/Request visit [] Outpatient visit [] Follow-up visit [] Physician referral [] Code/Alert [x] Routine visit [] Staff referral [] Actively dying [] Patient sleeping [] Family support [] [] Out of room [] Palliative care [] [] Receiving care in room [] Pre-surgical visit [] Trauma [] Long length of stay [x] ICU visit [x] Other: PT setting up in chair... having breakfast Relational/Emotional Strength [] Patient feels connected with others/family/visitors/staff [] Distress [] Loneliness/isolation [] Abandonment Spirituality of Patient [] Person of [place] [] Attends Congregational of their [place] [] Believes in Prayer [] Reads Bible or Buddhist materials [] There are Spiritual issues to be addressed Oral Health Therapist Interventions [x] Prayer [] Active listening [] Non-anxious presence [] Spiritual/emotional support [] Crisis/trauma care [] Spiritual counseling [] Bereavement support [] Provided bereavement packet [] Provided Bible/devotional materials [] Provided toy/stuffed animal, coloring book to patient or family member [] Provided Communion [] Anointing/[place] [] Salvation [x] Completed spiritual assessment [] Other: Impact on Illness or Injury [] Angry [] Fearful [] Anxious [] Often cries [] Exhaustion [] Unable to work [] Unable to attend muslim [] Unable to walk/stand [] Unable to read [] Unable to drive [] Unable to eat/drink [] Unable to sleep [] Unable to be with family [] Patient intubated [] Other: Summary Time spent with patient x
--- NOTE | 2022-03-26 11:24 | P.PN_ITS ---
Subjective Subjective: SOB improved Medications: Reviewed: Yes Vitals/I&O/Wt Last Vital Signs Temp 97.7 F 03/26/22 04:00 Pulse 74 03/26/22 08:00 Resp 16 03/26/22 08:00 BP 135/82 03/26/22 08:00 Pulse Ox 96 03/26/22 08:00 O2 Del Method 03/26/22 08:00 O2 Flow Rate 3 03/26/22 08:00 FiO2 30 03/17/22 19:47 03/25/22 03/26/22 03/26/22 22:59 06:59 14:59 Intake Total 745 / 1315 260 / 1575 400 / 400 Output Total 2750 / 2750 375 / 3125 Balance -2005 / -1435 -115 / -1550 400 / 400 Physical Exam Resp: OTHER: Diminished air entry bilaterally Extremity: COMMON NORMALS: no pedal edema NARRATIVE EXTREMITY EXAM: 2+ bilateral lower extremity pitting edema Urinary Catheter Management: Yu: Cath Placed During This Visit: yes Reason for Continuing Indwelling Catheter: Accurate Measurement of Urinary Output in Critically Ill Patients Urinary Catheter Date of Insertion: 03/16/22 Urinary Catheter Time of Insertion: 20:45 Data 03/26/22 04:22 03/26/22 04:22 A&P Assessment and plan (1) Acute kidney injury: seen via telemedicine with assistance of RN at bedside Plan 1. Hyponatremia, sodium 127 today. IV NSS did not improve sodium. Status post 3% saline infusion.. Continue NaCl oral to 1 g TID. Continue low dose furosemide. Check every 6 hours sodium levels 2. Acute kidney injury, urine output improved, creatinine 1.9 today, monitor 3. Decompensated heart failur: Lasix 40 mg p.o. twice daily 4. Chronic kidney disease: baseline Cr 1.5 - 1.6 mg/dL, small kidneys on renal us Attestations Medical Necessity Statement*: Patient is still in hospital for management of hyponatremia. Coding Level of Care Code Acute Environmental Health Officer for Miguelina Lynch Diagnoses Acute kidney injury N17.9
--- NOTE | 2022-03-26 11:37 | PC.SOCIAL ---
IMM Updated Updated pt on IMM. No questions voiced. Provided pt a copy. Initialed, dated, & timed copy in chart.
[2022-03-26] MEDS: cefTRIAXone 1,000 MG in sodium chloride 0.9% (plus) 50 ML 100 MG IV (13:06)
--- NOTE | 2022-03-26 14:00 | P.PN_ITS ---
Subjective Subjective: Patient had some episodes of respiratory distress/oxygen desaturation over the weekend. She responded appropriately to bronchodilator treatment and diuretics. The BUN has been fluctuating. The overall status seems to be slowly improving/stable. Currently has no fever or chills. No similar cough Medications: Medication Review Details: Current Medications Acetaminophen (Acetaminophen 500 Mg Tablet) 500 mg PO Q4H PRN PRN Reason: fever Last Admin: 03/25/22 10:39 Dose: 500 mg Albuterol/Ipratropium (Ipratropium-Albuterol 3 Ml Neb) 3 ml INHALATION Q6H PRN PRN Reason: SHORTNESS OF BREATH Last Admin: 03/25/22 15:29 Dose: 3 ml Allopurinol (Allopurinol 300 Mg Tablet) 300 mg PO DAILY [facility] Last Admin: 03/19/22 08:33 Dose: 300 mg Alprazolam (Alprazolam 0.5 Mg Tablet) 0.125 mg PO TID PRN PRN Reason: ANXIETY Last Admin: 03/26/22 04:02 Dose: 0.125 mg Amiodarone HCl (Amiodarone 200 Mg Tablet) 400 mg PO DAILY [facility] Last Admin: 03/26/22 08:05 Dose: 400 mg Aspirin (Aspirin 81 Mg Chew Tablet) 81 mg PO DAILY [facility] Last Admin: 03/26/22 08:05 Dose: 81 mg Atorvastatin Calcium (Atorvastatin 40 Mg Tablet) 80 mg PO DAILY [facility] Last Admin: 03/19/22 08:33 Dose: 80 mg Benzocaine (Cetylpyridinium Lozenge) 1 each MUCOUS MEM Q2H PRN PRN Reason: SORE THROAT Last Admin: 03/25/22 22:51 Dose: 1 each Benzonatate (Benzonatate 100 Mg Capsule) 100 mg PO TID PRN PRN Reason: COUGH Last Admin: 03/25/22 10:39 Dose: 100 mg Clopidogrel Bisulfate (Clopidogrel 75 Mg Tablet) 75 mg PO DAILY [facility] Last Admin: 03/26/22 08:05 Dose: 75 mg Diclofenac Sodium (Diclofenac 1% Topical Gel 100 Gm) 1 applic TOPICAL QID PRN PRN Reason: pain Last Admin: 03/22/22 20:38 Dose: 1 applic Enoxaparin Sodium (Enoxaparin 120 Mg/0.8 Ml Syringe) 110 mg SUBCUT Q24H [facility] Last Admin: 03/25/22 18:36 Dose: 110 mg Furosemide (Furosemide 40 Mg Tablet) 40 mg PO BID@08,16 [facility] Last Admin: 03/26/22 08:05 Dose: 40 mg Norepinephrine Bitartrate 4 mg (/ Dextrose) 254 mls @ 0 mls/hr IV .Q0M [facility]; Protocol Last Titration: 03/21/22 19:00 Dose: Infused Nitroglycerin/Dextrose (Nitroglycerin Drip) 50 mg in 250 mls @ 0 mls/hr IV .Q0M [facility]; Protocol Last Titration: 03/20/22 18:49 Dose: Infused Ceftriaxone Sodium 1,000 mg/ (Sodium Chloride) 50 mls @ 100 mls/hr IV Q24H [facility]; Protocol Last Admin: 03/26/22 13:06 Dose: 100 mls/hr Methylprednisolone Sodium Succinate (Methylprednisolone Sod Succ 40 Mg/Ml Inj) 40 mg IVP Q24H [facility] Last Admin: 03/26/22 08:05 Dose: 40 mg Metoclopramide HCl (Metoclopramide 5 Mg/Ml Sdv 2 Ml) 5 mg IVP Q6H PRN PRN Reason: NAUSEA AND VOMITING Last Admin: 03/23/22 00:53 Dose: 5 mg Nitroglycerin (Nitroglycerin 0.4 Mg Sublingual Tablet) 0.4 mg SUBLINGUAL Q5M PRN PRN Reason: CHEST PAIN Last Admin: 03/25/22 21:35 Dose: 0.4 mg Patient Own Med - (Tamiflu 30 Mg) 0 each PO DAILY [facility] Stop: 03/30/22 09:01 Last Admin: 03/26/22 11:15 Dose: 30 each Ondansetron HCl (Ondansetron 2 Mg/Ml Sdv 2 Ml) 4 mg IVP Q6H PRN PRN Reason: NAUSEA AND VOMITING Last Admin: 03/26/22 02:51 Dose: 4 mg Potassium Chloride (Potassium Chloride Er 20 Meq Tablet) 40 meq PO DAILY [facility] Last Admin: 03/26/22 08:05 Dose: 40 meq Senna/Docusate Sodium (Sennosides-Docusate Tablet) 1 tab PO DAILY [facility] Last Admin: 03/26/22 08:05 Dose: 1 tab Sodium Chloride (Sodium Chloride 1 Gm Tablet) 1 gm PO TID [facility] Last Admin: 03/26/22 08:06 Dose: 1 gm Vitals/I&O/Wt Last Vital Signs Temp 97.7 F 03/26/22 04:00 Pulse 70 03/26/22 13:00 Resp 15 03/26/22 13:00 BP 95/66 03/26/22 13:00 Pulse Ox 96 03/26/22 13:00 O2 Del Method 03/26/22 08:00 O2 Flow Rate 3 03/26/22 08:00 FiO2 30 03/17/22 19:47 03/25/22 03/26/22 03/26/22 22:59 06:59 14:59 Intake Total 745 / 1315 260 / 1575 550 / 550 Output Total 2750 / 2750 375 / 3125 Balance -2005 / -1435 -115 / -1550 550 / 550 Physical Exam Narrative: GENERAL: The patient is alert and oriented times three. Not in any acute distress. Lungs slightly lethargic HEENT: No significant pallor, icterus or lymphadenopathy.Oral cavity: There are no mucous membrane lesions. NECK: Trachea appears to be central. No masses noted. No JVD or thyromegaly appreciated. RESPIRATORY: Chest is symmetrical. No intercostals muscle retraction or any accessory muscle activation. There is no chest wall tenderness. Breath sounds are heard bilaterally. Scattered coarse crackles and some expiratory wheezes consolidation. BREASTS: Deferred. HEART: The heart sounds are normal. No S3 or S4. No significant murmurs. No pericardial rub ABDOMEN: No vessel pulsations or distention. No tenderness. No organomegaly appreciated. Bowel sounds are normally heard. : Deferred. RECTAL: Deferred. LYMPHATIC: No lymphadenopathy noted in the neck. EXTREMITIES: No edema or cyanosis. No clubbing. MUSCULOSKELETAL: No acute joint deformities or swelling SKIN: There are no significant rashes or ecchymosis NEUROPSYCHIATRIC: The patient is alert and oriented x3. Appears to be in a good mood. No tremors or rigidity noted. Urinary Catheter Management: Yu: Cath Placed During This Visit: yes Reason for Continuing Indwelling Catheter: Accurate Measurement of Urinary Output in Critically Ill Patients Urinary Catheter Date of Insertion: 03/16/22 Urinary Catheter Time of Insertion: 20:45 Data 03/26/22 04:22 03/26/22 04:22 Other Labs: Laboratory Last Values WBC 10.5 10^3/uL (4.0-10.0) H 03/26/22 04:22 RBC 3.76 10^6/uL (4.1-5.3) L 03/26/22 04:22 Hgb 12.1 g/dL (11.5-15.3) 03/26/22 04:22 Hct 37.7 % (37.0-47.0) 03/26/22 04:22 MCV 100.3 fl (81-99) H 03/26/22 04:22 MCH 32.2 pg (28.0-34.0) 03/26/22 04:22 MCHC 32.1 g/dL (30.0-36.0) 03/26/22 04:22 RDW 15.2 % (12.1-15.1) H 03/26/22 04:22 Plt Count 173 10^3/cmm (130-400) 03/26/22 04:22 MPV 11.6 fL (7.4-10.4) H 03/26/22 04:22 Neut % (Auto) 79.6 % 03/26/22 04:22 Lymph % (Auto) 10.5 % 03/26/22 04:22 [place] % (Auto) 8.2 % 03/26/22 04:22 Eos % (Auto) 0.3 % 03/26/22 04:22 Baso % (Auto) 0.1 % 03/26/22 04:22 Neut # (Auto) 8.39 10^3/uL (1.8-7.7) H 03/26/22 04:22 Lymph # (Auto) 1.1 10^3/uL (0.8-4.8) 03/26/22 04:22 [place] # (Auto) 0.9 10^3/uL (0.2-0.9) 03/26/22 04:22 Eos # (Auto) 0.0 10^3/uL (0.0-0.8) 03/26/22 04:22 Baso # (Auto) 0.0 10^3/uL (0.0-0.1) 03/26/22 04:22 Nucleated RBC % (auto) 0 % 03/26/22 04:22 Nucleated RBCs # 0.0 /100WBC 03/26/22 04:22 APTT 49.0 SECONDS (23.9-36.7) H 03/21/22 16:12 Specimen Type Arterial 03/17/22 08:26 Sample Site Brachial, right 03/17/22 08:26 ABG pH 7.30 (7.35-7.45) L 03/17/22 08:26 ABG pCO2 39.4 mmHg (35-45) 03/17/22 08:26 ABG pO2 130.0 mmHg (80.0-100.0) H 03/17/22 08:26 ABG HCO3 19.5 mmol/L (22-26) L 03/17/22 08:26 ABG O2 Saturation 99.2 03/17/22 08:26 ABG Base Excess -6.4 mmol/L (-2.0-2.0) L 03/17/22 08:26 Travis Test N/a 03/17/22 08:26 A-a O2 Gradient 4.8 mmHg (5-10) L 03/17/22 08:26 Hematocrit 36.4 % (37-47) L 03/17/22 08:26 Hgb O2 Saturation 97.8 % (95-100) 03/17/22 08:26 Carboxyhemoglobin 0.7 %THgb (0.4-20.1) 03/17/22 08:26 Methemoglobin 0.7 % (0.4-1.5) 03/17/22 08:26 Total Hemoglobin 11.9 g/dL (12-16) L 03/17/22 08:26 Sodium 124.0 mmol/L (131-143) L 03/17/22 08:26 Potassium 5.5 mmol/L (3.5-5.0) H 03/17/22 08:26 Glucose 178.0 mg/dL (70-115) H 03/17/22 08:26 Ionized Calcium 1.2 mmol/L (1.1-1.4) 03/17/22 08:26 O2 Delivery Device Cpap 03/17/22 08:26 FiO2 30.0 % 03/17/22 08:26 PEEP 10.0 cmH20 03/17/22 08:26 Phone Circuit Operator ID [id number] 03/17/22 08:26 Sodium 127 mmol/L (136-145) L 03/26/22 04:22 Potassium 4.0 mmol/L (3.5-5.1) 03/26/22 04:22 Chloride 87 mmol/L (98-107) L 03/26/22 04:22 Carbon Dioxide 27 mmol/L (22-29) 03/26/22 04:22 Anion Gap 17.0 (5-19) 03/26/22 04:22 BUN 69 mg/dL (8-23) H 03/26/22 04:22 Creatinine 1.9 mg/dL (0.5-0.9) H 03/26/22 04:22 GFR Calculation 26.4 mL/min (90-130) L 03/26/22 04:22 Glucose 233 mg/dL (65-115) H 03/26/22 04:22 POC Glucose 184 mg/dL (70-110) H 03/21/22 21:33 Calculated Osmolality 292 mOsm/kg (285-295) 03/26/22 04:22 Uric Acid 8.0 mg/dL (2.4-5.7) H 03/21/22 02:38 Calcium 9.5 mg/dL (8.5-10.5) 03/26/22 04:22 Phosphorus 3.9 mg/dL (2.5-4.5) 03/23/22 02:09 Magnesium 2.4 mg/dL (1.7-2.3) H 03/25/22 05:00 Total Bilirubin 0.6 mg/dL (0.15-1.2) 03/26/22 04:22 AST 27 U/L (0-32) 03/26/22 04:22 ALT 187 U/L (0-33) H 03/26/22 04:22 Alkaline Phosphatase 107 U/L (35-105) H 03/26/22 04:22 Troponin T Gen 5 ng/L 196 ng/L (0-10) H* 03/23/22 02:09 Troponin T Baseline 167 ng/L (0-10) H* 03/25/22 22:22 Troponin T 120 Minute 195.9 ng/L (0-10) H 03/26/22 01:50 Delta Troponin T 28.9 ABS# (0-10) H* 03/26/22 01:50 Troponin T Hi Sens 6Hr 233.2 ng/L (0-10) H 03/26/22 04:22 Troponin T Hi Sens 6Hr Delta 66.2 ng/L (0-12) H* 03/26/22 04:22 NT-Pro-B Natriuret Pep 88308 pg/mL (0-125) H 03/15/22 21:10 Total Protein 7.1 g/dL (6.6-8.7) 03/26/22 04:22 Albumin 3.7 g/dL (3.5-5.2) 03/26/22 04:22 Globulin 3.4 g/dL (1.3-4.6) 03/26/22 04:22 Urine Color Colorless (Yellow) 03/17/22 11:35 Urine Appearance Sl hazy (CLEAR) A 03/17/22 11:35 Urine pH 5 (5-7) 03/17/22 11:35 Ur Specific [place] 1.010 (1.005-1.030) 03/17/22 11:35 Urine Protein Neg (Negative) 03/17/22 11:35 Urine Glucose (UA) Norm (Normal) 03/17/22 11:35 Urine Ketones Negative (Negative) 03/17/22 11:35 Urine Blood 3+ (Negative) H 03/17/22 11:35 Urine Nitrate Negative (Negative) 03/17/22 11:35 Urine Bilirubin Neg (Negative) 03/17/22 11:35 Urine Urobilinogen Norm mg/dL (Negative) 03/17/22 11:35 Ur Leukocyte Esterase Negative (Negative) 03/17/22 11:35 Urine RBC 15-25 /hpf (0-2) H 03/17/22 11:35 Urine WBC None /hpf (0-5) 03/17/22 11:35 Ur Squamous Epith Cells None /hpf (0-5) 03/17/22 11:35 Amorphous Sediment Not Reportable 03/17/22 11:35 Urine Bacteria Trace /hpf (NONE) 03/17/22 11:35 Hyaline Casts 0-4 /lpf H 03/17/22 11:35 Urine Mucus Trace /hpf 03/17/22 11:35 Ur Random Sodium 68 mmol/L 03/17/22 11:35 Urine Creatinine 21 mg/dL (28-217) L 03/17/22 11:35 Influenza Type A Ag positive (Negative) H 03/26/22 02:57 Influenza Type B Ag negative (Negative) 03/26/22 02:57 A&P Assessment and plan (1) CHF exacerbation: Patient has some worsening of the LV systolic function. The etiology of the acute decompensation is not clear. Possibility of ischemia or cardiac arrhythmia causing this are considerations. Currently seems seems to be hemodynamically stable. The blood pressure has been fairly stable (2) Troponin level elevated: Patient is currently on Plavix. This may be continued. (3) Acute kidney injury: This could be related to her low output state. The kidney function seems to be fairly stable (4) ICD (implantable cardioverter-defibrillator), dual, in situ: Since there is no recurrence of ventricular tachycardia, may continue on the current management. (5) Wide-complex tachycardia: Patient has a history of incessant V. tach. Currently she seems to be in a paced rhythm. Has not had any currents of the V. tach over the weekend. (6) Elevated liver enzymes: Possibly from the heart failure-congestive hepatopathy. The liver enzymes are improving. (7) Atherosclerotic heart disease of [place] coronary artery with other forms of angina pectoris: We may consider repeat cardiac catheterization, once her kidney function is returned to the baseline. We will continue on the current medications for the time being Plan Other problems are Hyponatremia, management as per the nephrology with Possible upper respiratory tract infection COPD exacerbation Multiple electrolyte abnormalities Continue on the current management. If she continues to remain stable, may be transferred to the telemetry floor Attestations Medical Necessity Statement*: Patient requires continued hospital stay for close monitoring and further management Coding Level of Care Code Acute Home Improvement Advisor for Chg Fwd History Expanded Problem Focused Exam Detailed Medical Decision Making Moderate Complexity Diagnoses CHF exacerbation I50.9 Troponin level elevated R77.8 Acute kidney injury N17.9 ICD (implantable cardioverter-defibrillator), dual, in situ Z95.810 Wide-complex tachycardia R00.0 Elevated liver enzymes R74.8 Atherosclerotic heart disease of [place] coronary artery with other forms of angina pectoris I25.118
[2022-03-26] MEDS: enoxaparin 120 mg/0.8 mL Syringe 110 MG SUBCUT (17:23)
--- NOTE | 2022-03-26 18:33 | PC.NURSE ---
shift summary: Patient refused to work with physical therapy, able to get oob x2 this shift, no c/o, uneventful shift
[2022-03-26] MEDS: glycerin adult supp 1 EACH PR (20:43)
--- NOTE | 2022-03-26 22:00 | P.PN_ITS ---
Subjective Subjective: tested influenza A positive overnight. Reports that dyspnea is improving but still with significant dyspnea in conversation. On supplemental 02 4lpm Medications: Reviewed: Yes Medication Review Details: Current Medications Acetaminophen (Acetaminophen 500 Mg Tablet) 500 mg PO Q4H PRN PRN Reason: fever Last Admin: 03/25/22 10:39 Dose: 500 mg Albuterol/Ipratropium (Ipratropium-Albuterol 3 Ml Neb) 3 ml INHALATION Q6H PRN PRN Reason: SHORTNESS OF BREATH Last Admin: 03/25/22 15:29 Dose: 3 ml Allopurinol (Allopurinol 300 Mg Tablet) 300 mg PO DAILY [facility] Last Admin: 03/19/22 08:33 Dose: 300 mg Alprazolam (Alprazolam 0.5 Mg Tablet) 0.125 mg PO TID PRN PRN Reason: ANXIETY Last Admin: 03/26/22 04:02 Dose: 0.125 mg Amiodarone HCl (Amiodarone 200 Mg Tablet) 400 mg PO DAILY [facility] Last Admin: 03/26/22 08:05 Dose: 400 mg Aspirin (Aspirin 81 Mg Chew Tablet) 81 mg PO DAILY [facility] Last Admin: 03/26/22 08:05 Dose: 81 mg Atorvastatin Calcium (Atorvastatin 40 Mg Tablet) 80 mg PO DAILY [facility] Last Admin: 03/19/22 08:33 Dose: 80 mg Benzocaine (Cetylpyridinium Lozenge) 1 each MUCOUS MEM Q2H PRN PRN Reason: SORE THROAT Last Admin: 03/25/22 22:51 Dose: 1 each Benzonatate (Benzonatate 100 Mg Capsule) 100 mg PO TID PRN PRN Reason: COUGH Last Admin: 03/25/22 10:39 Dose: 100 mg Clopidogrel Bisulfate (Clopidogrel 75 Mg Tablet) 75 mg PO DAILY [facility] Last Admin: 03/26/22 08:05 Dose: 75 mg Diclofenac Sodium (Diclofenac 1% Topical Gel 100 Gm) 1 applic TOPICAL QID PRN PRN Reason: pain Last Admin: 03/22/22 20:38 Dose: 1 applic Enoxaparin Sodium (Enoxaparin 120 Mg/0.8 Ml Syringe) 110 mg SUBCUT Q24H [facility] Last Admin: 03/25/22 18:36 Dose: 110 mg Furosemide (Furosemide 40 Mg Tablet) 40 mg PO BID@08,16 [facility] Last Admin: 03/26/22 08:05 Dose: 40 mg Norepinephrine Bitartrate 4 mg (/ Dextrose) 254 mls @ 0 mls/hr IV .Q0M [facility]; Protocol Last Titration: 03/21/22 19:00 Dose: Infused Nitroglycerin/Dextrose (Nitroglycerin Drip) 50 mg in 250 mls @ 0 mls/hr IV .Q0M [facility]; Protocol Last Titration: 03/20/22 18:49 Dose: Infused Ceftriaxone Sodium 1,000 mg/ (Sodium Chloride) 50 mls @ 100 mls/hr IV Q24H [facility]; Protocol Last Admin: 03/26/22 13:06 Dose: 100 mls/hr Methylprednisolone Sodium Succinate (Methylprednisolone Sod Succ 40 Mg/Ml Inj) 40 mg IVP Q24H [facility] Last Admin: 03/26/22 08:05 Dose: 40 mg Metoclopramide HCl (Metoclopramide 5 Mg/Ml Sdv 2 Ml) 5 mg IVP Q6H PRN PRN Reason: NAUSEA AND VOMITING Last Admin: 03/23/22 00:53 Dose: 5 mg Nitroglycerin (Nitroglycerin 0.4 Mg Sublingual Tablet) 0.4 mg SUBLINGUAL Q5M PRN PRN Reason: CHEST PAIN Last Admin: 03/25/22 21:35 Dose: 0.4 mg Patient Own Med - (Tamiflu 30 Mg) 0 each PO DAILY [facility] Stop: 03/30/22 09:01 Last Admin: 03/26/22 11:15 Dose: 30 each Ondansetron HCl (Ondansetron 2 Mg/Ml Sdv 2 Ml) 4 mg IVP Q6H PRN PRN Reason: NAUSEA AND VOMITING Last Admin: 03/26/22 02:51 Dose: 4 mg Potassium Chloride (Potassium Chloride Er 20 Meq Tablet) 40 meq PO DAILY [facility] Last Admin: 03/26/22 08:05 Dose: 40 meq Senna/Docusate Sodium (Sennosides-Docusate Tablet) 1 tab PO DAILY [facility] Last Admin: 03/26/22 08:05 Dose: 1 tab Sodium Chloride (Sodium Chloride 1 Gm Tablet) 1 gm PO TID [facility] Last Admin: 03/26/22 08:06 Dose: 1 gm Vitals/I&O/Wt Last Vital Signs Temp 98.4 F 03/26/22 21:00 Pulse 70 12/12/22 21:00 Resp 18 03/26/22 20:00 BP 110/73 03/26/22 21:00 Pulse Ox 97 03/26/22 21:00 O2 Del Method 03/26/22 21:00 O2 Flow Rate 2 03/26/22 21:00 FiO2 30 03/17/22 19:47 03/26/22 03/26/22 03/26/22 06:59 14:59 22:59 Intake Total 260 / 1575 550 / 550 150 / 700 Output Total 375 / 3125 1200 / 1200 Balance -115 / -1550 550 / 550 -1050 / -500 Physical Exam Narrative: General: No acute distress, sitting in chair, tachypneic with speaking few short sentences HEENT: PERRLA, pupils bilaterally equal and reactive, pallors not present Chest: Normal vesicular breath sounds, no added sounds, equal good air entry bilaterally CVS: S1-S2 regular, no murmurs, no tachycardia, no gallops, no rubs Abdomen: Soft, nontender, no organomegaly, bowel sounds present Neuro: No focal deficits, no facial deformity, AO x3, power 5/5 in all limbs Urinary Catheter Management: Yu: Cath Placed During This Visit: yes Reason for Continuing Indwelling Catheter: Accurate Measurement of Urinary Output in Critically Ill Patients Urinary Catheter Date of Insertion: 03/16/22 Urinary Catheter Time of Insertion: 20:45 Data 03/26/22 04:22 03/26/22 04:22 A&P Assessment and plan (1) CHF exacerbation: (2) ICD (implantable cardioverter-defibrillator), dual, in situ: (3) Chronic episodic atrial fibrillation: (4) Hyperkalemia: (5) Hyponatremia: Plan 65 year old female who has history of chronic atrial fibrillation, ischemic cardiomyopathy PCI to right coronary mixed systolic diastolic congestive heart failure status post AICD placement(EF 30%) was brought in with chief complaint of worsening shortness of breath as well as cough going on for the last few days extremely bad yesterday, she was being treated as an outpatient by her PCP with azithromycin Augmentin, and prednisone for possible bronchitis. Currently she is being managed for Assessment: Ventricular tachycardia: Decompensated heart failure: Impending cardiogenic shock Worsening YUDI on CKD: Baseline serum creatinine appears to be around 1.5-1.6: Possibly secondary CRS 2/2 decompensated heart failure NSTEMI : Chronic atrial fibrillation on Eliquis Transaminitis: Possibly secondary to congestive hepatopathy secondary to decompensated heart failure.Will get ultrasound abdomen. Possibly hepatitis pane l. Medication reviewed: She is on amiodarone. Currently also on Augmentin. Will DC Augmentin. We will hold allopurinol and atorvastatin. Will need monitoring for acalculous cholecystitis.Currently total bilirubin is normal. History of chronic atrial fibrillation History of coronary artery disease Hyponatremia Bronchitis Tendinopathy of rotator cuff: History of gout Plan: X-ray chest: Showed diffuse pulmonary vascular congestion, elevated proBNP: [id number], subsequent x-ray chest has shown improvement in pulm vascular congestion as well as effusion. Ultrasound abdomen: Mild hepatic steatosis Troponin trend: Has been done, during episodes of chest pain. Serial EKG: Paced rhythm no acute ST-T wave changes Was on Lasix drip running at 5 mg/hr, and metolazone has been discontinued. Was On heparin drip: Currently on therapeutic anticoagulation with Lovenox, con tinue aspirin Plavix Was on nitro drip was later stopped. Continue amiodarone Was on lidocaine drip: Has been weaned off Hold Eliquis Plan was to use tolvaptan currently not available Fluid restriction to 1200 cc Was on Augmentin: Has been discontinued due to transaminitis.Will switch to Rocephin. Monitor intake output charting. Monitor electrolytes K>4 ,MG>2 Monitor daily weight Avoid nephrotoxic's Telemetry monitoring Nephrology on board Cardiology on board Plan for today: D/c IVF, transfer to [facility] CODE STATUS: Full code DVT prophylaxis: Not needed on Lovenox therapeutic Attestations Medical Necessity Statement*: slowly improving but still significantly dyspneic, needs cardiac and respiratory monitoring, Coding Level of Care Code Acute Pipe And Tank Fabricator for Chg Fwd Diagnoses CHF exacerbation I50.9 ICD (implantable cardioverter-defibrillator), dual, in situ Z95.810 Chronic episodic atrial fibrillation I48.20 Hyperkalemia E87.5 Hyponatremia E87.1
[2022-03-26] MEDS: cetylpyridinium Lozenge 1 EACH MUCOUS MEM (22:54)
[2022-03-27] VITALS (25 sets, daily range): BP systolic 82–169; BP diastolic 52–98; PULSE 68–88; RESP 15–27; TEMP 36.4; O2SAT 92–100
[2022-03-27] MEDS: ALPRAZolam 0.5 mg Tablet 0.125 MG PO ×3 (01:45→22:21)
[2022-03-27 01:52] LABS: Basophils % 0.1 %; Eosinophils % 0.1 %; Hemoglobin 11.6 g/dL (11.5-15.3); Lymphocytes # 1.1 10^3/uL (0.8-4.8); Lymphocytes % 12.4 %; Mean Corpuscular HGB Conc 32.2 g/dL (30.0-36.0); Mean Corpuscular Hemoglobin 32.2 pg (28.0-34.0); Monocytes # 0.6 10^3/uL (0.2-0.9); Monocytes % 6.6 %; Neutrophils # 7.36 10^3/uL (1.8-7.7); Neutrophils % 79.9 %; Nucleated Red Blood Cells % 0 %; Platelet Count 169 10^3/cmm (130-400); Red Cell Distribution Width 14.9 % (12.1-15.1); White Blood Count 9.2 10^3/uL (4.0-10.0)
[2022-03-27 03:10] LABS: Albumin Level 3.7 g/dL (3.5-5.2); Alkaline Phosphatase 95 U/L (35-105); Anion Gap 18.2 (5-19); Aspartate Amino Transferase 24 U/L (0-32); Calcium 9.2 mg/dL (8.5-10.5); Carbon Dioxide 28 mmol/L (22-29); Globulin 2.8 g/dL (1.3-4.6); Osmolality Calculated 294 mOsm/kg (285-295); Potassium 4.2 mmol/L (3.5-5.1); Total Bilirubin 0.5 mg/dL (0.15-1.2)
[2022-03-27 04:18] LABS: Alanine Aminotransferase 142 U/L (0-33); Blood Urea Nitrogen 38 mg/dL (8-23); Chloride 93 mmol/L (98-107); Glomerular Filtration Rate 24.9 mL/min (90-130); Glucose 183 mg/dL (65-115); Sodium 135 mmol/L (136-145); Total Protein 6.5 g/dL (6.6-8.7)
[2022-03-27] MEDS: clopidogrel 75 mg Tablet PO (08:50)
[2022-03-27] MEDS: aspirin 81 mg Chew Tablet PO (08:50)
[2022-03-27] MEDS: acetaminophen 500 mg Tablet PO (08:50)
[2022-03-27] MEDS: amiodarone 200 mg Tablet 400 MG PO (08:50)
[2022-03-27] MEDS: FUROsemide 40 mg Tablet PO ×2 (08:52→14:45)
[2022-03-27] MEDS: sennosides-docusate Tablet 1 TAB PO (08:52)
[2022-03-27] MEDS: sodium chloride 1 gm Tablet PO ×3 (08:52→20:05)
[2022-03-27] MEDS: potassium chloride ER 20 mEq Tablet 40 MEQ PO (08:52)
--- NOTE | 2022-03-27 09:22 | PM.PN ---
Subjective Subjective: Patient had episodes of ventricular tachycardia/nonsustained V. tach on the monitor. The ICD fired 1 time. Currently she seems to be doing better. Still has generalized weakness and has difficulty in ambulation. She is not able to lie flat in the bed. No fever or chills. Telemetry shows AV paced rhythm. Medications: Medication Review Details: Current Medications Acetaminophen (Acetaminophen 500 Mg Tablet) 500 mg PO Q4H PRN PRN Reason: fever Last Admin: 03/27/22 08:50 Dose: 500 mg Albuterol/Ipratropium (Ipratropium-Albuterol 3 Ml Neb) 3 ml INHALATION Q6H PRN PRN Reason: SHORTNESS OF BREATH Last Admin: 03/25/22 15:29 Dose: 3 ml Allopurinol (Allopurinol 300 Mg Tablet) 300 mg PO DAILY [facility] Last Admin: 03/19/22 08:33 Dose: 300 mg Alprazolam (Alprazolam 0.5 Mg Tablet) 0.125 mg PO TID PRN PRN Reason: ANXIETY Last Admin: 03/27/22 01:45 Dose: 0.125 mg Amiodarone HCl (Amiodarone 200 Mg Tablet) 400 mg PO DAILY [facility] Last Admin: 03/27/22 08:50 Dose: 400 mg Aspirin (Aspirin 81 Mg Chew Tablet) 81 mg PO DAILY [facility] Last Admin: 03/27/22 08:50 Dose: 81 mg Atorvastatin Calcium (Atorvastatin 40 Mg Tablet) 80 mg PO DAILY [facility] Last Admin: 03/19/22 08:33 Dose: 80 mg Benzocaine (Cetylpyridinium Lozenge) 1 each MUCOUS MEM Q2H PRN PRN Reason: SORE THROAT Last Admin: 03/26/22 22:54 Dose: 1 each Benzonatate (Benzonatate 100 Mg Capsule) 100 mg PO TID PRN PRN Reason: COUGH Last Admin: 03/25/22 10:39 Dose: 100 mg Clopidogrel Bisulfate (Clopidogrel 75 Mg Tablet) 75 mg PO DAILY [facility] Last Admin: 03/27/22 08:50 Dose: 75 mg Diclofenac Sodium (Diclofenac 1% Topical Gel 100 Gm) 1 applic TOPICAL QID PRN PRN Reason: pain Last Admin: 03/22/22 20:38 Dose: 1 applic Enoxaparin Sodium (Enoxaparin 120 Mg/0.8 Ml Syringe) 110 mg SUBCUT Q24H [facility] Last Admin: 03/26/22 17:23 Dose: 110 mg Furosemide (Furosemide 40 Mg Tablet) 40 mg PO BID@08,16 [facility] Last Admin: 03/27/22 08:52 Dose: 40 mg Glycerin (Glycerin Adult Supp) 1 each [place] DAILY PRN PRN Reason: CONSTIPATION Last Admin: 03/26/22 20:43 Dose: 1 each Nitroglycerin/Dextrose (Nitroglycerin Drip) 50 mg in 250 mls @ 0 mls/hr IV .Q0M [facility]; Protocol Last Titration: 03/20/22 18:49 Dose: Infused Ceftriaxone Sodium 1,000 mg/ (Sodium Chloride) 50 mls @ 100 mls/hr IV Q24H [facility]; Protocol Last Infusion: 03/27/22 07:41 Dose: Infused Methylprednisolone Sodium Succinate (Methylprednisolone Sod Succ 40 Mg/Ml Inj) 40 mg IVP Q24H [facility] Last Admin: 03/27/22 08:52 Dose: 40 mg Metoclopramide HCl (Metoclopramide 5 Mg/Ml Sdv 2 Ml) 5 mg IVP Q6H PRN PRN Reason: NAUSEA AND VOMITING Last Admin: 03/23/22 00:53 Dose: 5 mg Nitroglycerin (Nitroglycerin 0.4 Mg Sublingual Tablet) 0.4 mg SUBLINGUAL Q5M PRN PRN Reason: CHEST PAIN Last Admin: 03/25/22 21:35 Dose: 0.4 mg Patient Own Med - (Tamiflu 30 Mg) 0 each PO DAILY [facility] Stop: 03/30/22 09:01 Last Admin: 03/27/22 08:55 Dose: 30 each Ondansetron HCl (Ondansetron 2 Mg/Ml Sdv 2 Ml) 4 mg IVP Q6H PRN PRN Reason: NAUSEA AND VOMITING Last Admin: 03/26/22 02:51 Dose: 4 mg Potassium Chloride (Potassium Chloride Er 20 Meq Tablet) 40 meq PO DAILY [facility] Last Admin: 03/27/22 08:52 Dose: 40 meq Senna/Docusate Sodium (Sennosides-Docusate Tablet) 1 tab PO DAILY [facility] Last Admin: 03/27/22 08:52 Dose: 1 tab Sodium Chloride (Sodium Chloride 1 Gm Tablet) 1 gm PO TID [facility] Last Admin: 03/27/22 08:52 Dose: 1 gm Vitals/I&O/Wt Last Vital Signs Temp 98.4 F 03/26/22 21:00 Pulse 70 03/27/22 09:00 Resp 20 H 03/27/22 09:00 BP 101/64 03/27/22 09:00 Pulse Ox 98 03/27/22 09:00 O2 Del Method 03/27/22 09:00 O2 Flow Rate 2 03/27/22 09:00 FiO2 30 03/17/22 19:47 03/26/22 03/27/22 03/27/22 22:59 06:59 14:59 Intake Total 150 / 700 400 / 1100 170 / 170 Output Total 1200 / 1200 600 / 1800 Balance -1050 / -500 -200 / -700 170 / 170 Physical Exam Narrative: GENERAL: The patient is alert and oriented times three. Not in any acute distress. Complains of generalized weakness HEENT: No significant pallor, icterus or lymphadenopathy.Oral cavity: There are no mucous membrane lesions. NECK: Trachea appears to be central. No masses noted. No JVD or thyromegaly appreciated. RESPIRATORY: Chest is symmetrical. No intercostals muscle retraction or any accessory muscle activation. There is no chest wall tenderness. Breath sounds are heard bilaterally. Few scattered crackles. BREASTS: Deferred. HEART: The heart sounds are normal. No S3 or S4. No significant murmurs. No pericardial rub ABDOMEN: No vessel pulsations or distention. No tenderness. No organomegaly appreciated. Bowel sounds are normally heard. : Deferred. RECTAL: Deferred. LYMPHATIC: No lymphadenopathy noted in the neck. EXTREMITIES: No edema or cyanosis. No clubbing. MUSCULOSKELETAL: No acute joint deformities or swelling SKIN: There are no significant rashes or ecchymosis NEUROPSYCHIATRIC: The patient is alert and oriented x3. No focal motor deficit Urinary Catheter Management: Yu: Cath Placed During This Visit: yes Reason for Continuing Indwelling Catheter: Accurate Measurement of Urinary Output in Critically Ill Patients Urinary Catheter Date of Insertion: 03/16/22 Urinary Catheter Time of Insertion: 20:45 Data 03/27/22 01:12 03/27/22 01:12 Micro: Laboratory Last Values WBC 9.2 10^3/uL (4.0-10.0) 03/27/22 01:12 RBC 3.60 10^6/uL (4.1-5.3) L 03/27/22 01:12 Hgb 11.6 g/dL (11.5-15.3) 03/27/22 01:12 Hct 36.0 % (37.0-47.0) L 03/27/22 01:12 MCV 100.0 fl (81-99) H 03/27/22 01:12 MCH 32.2 pg (28.0-34.0) 03/27/22 01:12 MCHC 32.2 g/dL (30.0-36.0) 03/27/22 01:12 RDW 14.9 % (12.1-15.1) 03/27/22 01:12 Plt Count 169 10^3/cmm (130-400) 03/27/22 01:12 MPV 12.0 fL (7.4-10.4) H 03/27/22 01:12 Neut % (Auto) 79.9 % 03/27/22 01:12 Lymph % (Auto) 12.4 % 03/27/22 01:12 [place] % (Auto) 6.6 % 03/27/22 01:12 Eos % (Auto) 0.1 % 03/27/22 01:12 Baso % (Auto) 0.1 % 03/27/22 01:12 Neut # (Auto) 7.36 10^3/uL (1.8-7.7) 03/27/22 01:12 Lymph # (Auto) 1.1 10^3/uL (0.8-4.8) 03/27/22 01:12 [place] # (Auto) 0.6 10^3/uL (0.2-0.9) 03/27/22 01:12 Eos # (Auto) 0.0 10^3/uL (0.0-0.8) 03/27/22 01:12 Baso # (Auto) 0.0 10^3/uL (0.0-0.1) 03/27/22 01:12 Nucleated RBC % (auto) 0 % 03/27/22 01:12 Nucleated RBCs # 0.0 /100WBC 03/27/22 01:12 APTT 49.0 SECONDS (23.9-36.7) H 03/21/22 16:12 Specimen Type Arterial 03/17/22 08:26 Sample Site Brachial, right 03/17/22 08:26 ABG pH 7.30 (7.35-7.45) L 03/17/22 08:26 ABG pCO2 39.4 mmHg (35-45) 03/17/22 08:26 ABG pO2 130.0 mmHg (80.0-100.0) H 03/17/22 08:26 ABG HCO3 19.5 mmol/L (22-26) L 03/17/22 08:26 ABG O2 Saturation 99.2 03/17/22 08:26 ABG Base Excess -6.4 mmol/L (-2.0-2.0) L 03/17/22 08:26 [place] Test N/a 03/17/22 08:26 A-a O2 Gradient 4.8 mmHg (5-10) L 03/17/22 08:26 Hematocrit 36.4 % (37-47) L 03/17/22 08:26 Hgb O2 Saturation 97.8 % (95-100) 03/17/22 08:26 Carboxyhemoglobin 0.7 %THgb (0.4-20.1) 03/17/22 08:26 Methemoglobin 0.7 % (0.4-1.5) 03/17/22 08:26 Total Hemoglobin 11.9 g/dL (12-16) L 03/17/22 08:26 Sodium 124.0 mmol/L (131-143) L 03/17/22 08:26 Potassium 5.5 mmol/L (3.5-5.0) H 03/17/22 08:26 Glucose 178.0 mg/dL (70-115) H 03/17/22 08:26 Ionized Calcium 1.2 mmol/L (1.1-1.4) 03/17/22 08:26 O2 Delivery Device Cpap 03/17/22 08:26 FiO2 30.0 % 03/17/22 08:26 PEEP 10.0 cmH20 03/17/22 08:26 Hand Mixer ID Amh 03/17/22 08:26 Sodium 135 mmol/L (136-145) L 03/27/22 01:12 Potassium 4.2 mmol/L (3.5-5.1) 03/27/22 01:12 Chloride 93 mmol/L (98-107) L 03/27/22 01:12 Carbon Dioxide 28 mmol/L (22-29) 03/27/22 01:12 Anion Gap 18.2 (5-19) 03/27/22 01:12 BUN 38 mg/dL (8-23) H 03/27/22 01:12 Creatinine 2.0 mg/dL (0.5-0.9) H 03/27/22 01:12 GFR Calculation 24.9 mL/min (90-130) L 03/27/22 01:12 Glucose 183 mg/dL (65-115) H 03/27/22 01:12 POC Glucose 184 mg/dL (70-110) H 03/21/22 21:33 Calculated Osmolality 294 mOsm/kg (285-295) 03/27/22 01:12 Uric Acid 8.0 mg/dL (2.4-5.7) H 03/21/22 02:38 Calcium 9.2 mg/dL (8.5-10.5) 03/27/22 01:12 Phosphorus 3.9 mg/dL (2.5-4.5) 03/23/22 02:09 Magnesium 2.4 mg/dL (1.7-2.3) H 03/25/22 05:00 Total Bilirubin 0.5 mg/dL (0.15-1.2) 03/27/22 01:12 AST 24 U/L (0-32) 03/27/22 01:12 ALT 142 U/L (0-33) H 03/27/22 01:12 Alkaline Phosphatase 95 U/L (35-105) 03/27/22 01:12 Troponin T Gen 5 ng/L 196 ng/L (0-10) H* 03/23/22 02:09 Troponin T Baseline 167 ng/L (0-10) H* 03/25/22 22:22 Troponin T 120 Minute 195.9 ng/L (0-10) H 03/26/22 01:50 Delta Troponin T 28.9 ABS# (0-10) H* 03/26/22 01:50 Troponin T Hi Sens 6Hr 233.2 ng/L (0-10) H 03/26/22 04:22 Troponin T Hi Sens 6Hr Delta 66.2 ng/L (0-12) H* 03/26/22 04:22 NT-Pro-B Natriuret Pep 29777 pg/mL (0-125) H 03/15/22 21:10 Total Protein 6.5 g/dL (6.6-8.7) L 03/27/22 01:12 Albumin 3.7 g/dL (3.5-5.2) 03/27/22 01:12 Globulin 2.8 g/dL (1.3-4.6) 03/27/22 01:12 Urine Color Colorless (Yellow) 03/17/22 11:35 Urine Appearance Sl hazy (CLEAR) A 03/17/22 11:35 Urine pH 5 (5-7) 03/17/22 11:35 Ur Specific [place] 1.010 (1.005-1.030) 03/17/22 11:35 Urine Protein Neg (Negative) 03/17/22 11:35 Urine Glucose (UA) Norm (Normal) 03/17/22 11:35 Urine Ketones Negative (Negative) 03/17/22 11:35 Urine Blood 3+ (Negative) H 03/17/22 11:35 Urine Nitrate Negative (Negative) 03/17/22 11:35 Urine Bilirubin Neg (Negative) 03/17/22 11:35 Urine Urobilinogen Norm mg/dL (Negative) 03/17/22 11:35 Ur Leukocyte Esterase Negative (Negative) 03/17/22 11:35 Urine RBC 15-25 /hpf (0-2) H 03/17/22 11:35 Urine WBC None /hpf (0-5) 03/17/22 11:35 Ur Squamous Epith Cells None /hpf (0-5) 03/17/22 11:35 Amorphous Sediment Not Reportable 03/17/22 11:35 Urine Bacteria Trace /hpf (NONE) 03/17/22 11:35 Hyaline Casts 0-4 /lpf H 03/17/22 11:35 Urine Mucus Trace /hpf 03/17/22 11:35 Ur Random Sodium 68 mmol/L 03/17/22 11:35 Urine Creatinine 21 mg/dL (28-217) L 03/17/22 11:35 Influenza Type A Ag positive (Negative) H 03/26/22 02:57 Influenza Type B Ag negative (Negative) 03/26/22 02:57 A&P Assessment and plan (1) CHF exacerbation: The heart failure seems to be getting compensated. Significant worsening of the LV systolic function. This could be a contributing factor for the ventricular tachycardia (2) Troponin level elevated: Most likely the patient had a type I myocardial infarction. Patient is currently on Plavix. This may be continued. (3) Atherosclerotic heart disease of [place] coronary artery with other forms of angina pectoris: Patient needs a cardiac catheterization. However because of the acute kidney injury and the patient's difficulty in lying flat are major concerns. We will continue with current medication for the time being (4) Acute kidney injury: The renal function slowly getting back to the baseline. Will discuss with nephrology whether it is advisable to do the coronary angiogram at this time. Otherwise we may consider a Myocardial perfusion imaging (5) ICD (implantable cardioverter-defibrillator), dual, in situ: The ICD function appears to be appropriate (6) Wide-complex tachycardia: Consider adding mexiletine, if the patient has recurrence of VT (7) Elevated liver enzymes: Almost returning back to baseline. Plan Other problems are as outlined before Continue on the current management. 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
[2022-03-27] MEDS: cefTRIAXone 1,000 MG in sodium chloride 0.9% (plus) 50 ML 100 MG IV (14:45)
--- NOTE | 2022-03-27 16:29 | PM.PN ---
Subjective Subjective: doing well Medications: Reviewed: Yes Vitals/I&O/Wt Last Vital Signs Temp 98.4 F 03/26/22 21:00 Pulse 68 03/27/22 14:00 Resp 18 03/27/22 14:00 BP 115/71 03/27/22 14:00 Pulse Ox 98 03/27/22 14:00 O2 Del Method 03/27/22 14:00 O2 Flow Rate 2 03/27/22 14:00 FiO2 30 03/17/22 19:47 03/27/22 03/27/22 03/27/22 06:59 14:59 22:59 Intake Total 400 / 1100 410 / 410 50 / 460 Output Total 600 / 1800 Balance -200 / -700 410 / 410 50 / 460 Physical Exam Resp: OTHER: Diminished air entry bilaterally Extremity: COMMON NORMALS: no pedal edema NARRATIVE EXTREMITY EXAM: 2+ bilateral lower extremity pitting edema Urinary Catheter Management: Yu: Cath Placed During This Visit: yes Reason for Continuing Indwelling Catheter: Accurate Measurement of Urinary Output in Critically Ill Patients Urinary Catheter Date of Insertion: 03/16/22 Urinary Catheter Time of Insertion: 20:45 Data 03/27/22 01:12 03/27/22 01:12 A&P Assessment and plan (1) Hyponatremia: (2) Acute kidney injury: seen via telemedicine with assistance of RN at bedside Plan 1. Hyponatremia, sodium improved . I Status post 3% saline infusion.. Continue NaCl oral to 1 g TID. Continue low dose furosemide. 2. Acute kidney injury, urine output improved, creatinine 2.0 today, monitor 3. Decompensated heart failur: Lasix 40 mg p.o. twice daily 4. 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
[2022-03-27] MEDS: enoxaparin 120 mg/0.8 mL Syringe 110 MG SUBCUT (17:14)
[2022-03-27] MEDS: ondansetron 2 mg/ML SDV 2 mL 4 MG IVP (21:00)
[2022-03-28] VITALS (26 sets, daily range): BP systolic 88–128; BP diastolic 51–91; PULSE 69–83; RESP 13–24; TEMP 36.4–37; O2SAT 94–99
[2022-03-28] MEDS: metoclopramide 5 mg/mL SDV 2 mL IVP ×2 (02:44→08:40)
[2022-03-28] MEDS: ondansetron 2 mg/ML SDV 2 mL 4 MG IVP ×2 (03:29→10:30)
[2022-03-28] MEDS: FUROsemide 40 mg Tablet PO (08:51)
[2022-03-28] MEDS: clopidogrel 75 mg Tablet PO (08:52)
[2022-03-28] MEDS: amiodarone 200 mg Tablet 400 MG PO (08:52)
[2022-03-28] MEDS: acetaminophen 500 mg Tablet PO (10:24)
[2022-03-28] MEDS: sodium chloride 1 gm Tablet PO ×3 (10:25→20:23)
[2022-03-28] MEDS: sennosides-docusate Tablet 1 TAB PO (10:25)
[2022-03-28] MEDS: aspirin 81 mg Chew Tablet PO (10:26)
[2022-03-28] MEDS: potassium chloride ER 20 mEq Tablet 40 MEQ PO (10:26)
--- NOTE | 2022-03-28 11:34 | XRR_ITS ---
PROCEDURE INFORMATION: Exam: XR Abdomen Exam date and time: 03/28/2022 1:04 PM Age: 67 years old Clinical indication: Abdominal pain; Generalized; Additional info: Evaluate for ileus TECHNIQUE: Imaging protocol: Radiologic exam of the abdomen. Views: Frontal supine view of the abdomen. 1 View. COMPARISON: US abdomen limited [id number] 03/19/2022 3:21 PM FINDINGS: Lungs: Vague opacity left lung base difficult to further assess and better evaluated on chest exam. Gastrointestinal tract: There is a moderate degree of retained stool that may reflect some degree of constipation. No significant ileus or evidence of bowel obstruction. Bones/joints: Mild scoliosis with multilevel degenerative changes lower lumbar spine. XR/XR abdomen 1V* [id number] IMPRESSION: Probable constipation otherwise unremarkable bowel gas pattern.
[2022-03-28] MEDS: FUROsemide 10 mg/mL SDV 4mL 40 MG IVP ×2 (11:58→23:52)
--- NOTE | 2022-03-28 12:54 | PC.SOCIAL ---
IMM Updated Updated pt on IMM. No questions voiced. Provided pt a copy. Initialed, dated, & timed copy in chart.
[2022-03-28] MEDS: ipratropium-albuterol 3 mL Neb INHALATION ×2 (13:50→19:36)
[2022-03-28 14:14] LABS: Anion Gap 14.9 (5-19); Calcium 8.5 mg/dL (8.5-10.5); Carbon Dioxide 29 mmol/L (22-29); Chloride 89 mmol/L (98-107); Creatinine Clr Calc Pharmacy 47.6303; Glomerular Filtration Rate 34.6 mL/min (90-130); Glucose 293 mg/dL (65-115); Osmolality Calculated 304 mOsm/kg (285-295); Potassium 3.9 mmol/L (3.5-5.1); Sodium 129 mmol/L (136-145)
[2022-03-28 14:44] LABS: Blood Urea Nitrogen 82 mg/dL (8-23)
[2022-03-28] MEDS: ALPRAZolam 0.5 mg Tablet 0.25 MG PO (14:55)
--- NOTE | 2022-03-28 16:14 | PC.OT ---
OT TREATMENT HELD TODAY DUE TO PIC LINE PLACEMENT AT TIME OF ATTEMPTED TREATMENT.
--- NOTE | 2022-03-28 17:12 | PC.NURSE ---
Right basilic midline placed without difficulty. Good blood return. Flushes without difficulty. Pt tolerated well.
--- NOTE | 2022-03-28 17:18 | P.PN_ITS ---
Subjective Subjective: Patient is feeling better. Has not had any recurrence of ventricular arrhythmia, since since yesterday. No fever or chills. Still has a feeling of generalized weakness. Medications: Medication Review Details: Current Medications Acetaminophen (Acetaminophen 500 Mg Tablet) 500 mg PO Q4H PRN PRN Reason: fever Last Admin: 03/28/22 10:24 Dose: 500 mg Albuterol/Ipratropium (Ipratropium-Albuterol 3 Ml Neb) 3 ml INHALATION Q6H [facility] Allopurinol (Allopurinol 300 Mg Tablet) 300 mg PO DAILY [facility] Last Admin: 03/19/22 08:33 Dose: 300 mg Alprazolam (Alprazolam 0.5 Mg Tablet) 0.25 mg PO TID PRN PRN Reason: ANXIETY Last Admin: 03/28/22 14:55 Dose: 0.25 mg Amiodarone HCl (Amiodarone 200 Mg Tablet) 400 mg PO DAILY [facility] Last Admin: 03/28/22 08:52 Dose: 400 mg Aspirin (Aspirin 81 Mg Chew Tablet) 81 mg PO DAILY [facility] Last Admin: 03/28/22 10:26 Dose: 81 mg Atorvastatin Calcium (Atorvastatin 40 Mg Tablet) 80 mg PO DAILY [facility] Last Admin: 03/19/22 08:33 Dose: 80 mg Benzocaine (Cetylpyridinium Lozenge) 1 each MUCOUS MEM Q2H PRN PRN Reason: SORE THROAT Last Admin: 03/26/22 22:54 Dose: 1 each Benzonatate (Benzonatate 100 Mg Capsule) 100 mg PO TID PRN PRN Reason: COUGH Last Admin: 03/25/22 10:39 Dose: 100 mg Budesonide (Budesonide 0.5 Mg/2 Ml Neb) 0.5 mg INHALATION BID.RESPIRATORY [place] Clopidogrel Bisulfate (Clopidogrel 75 Mg Tablet) 75 mg PO DAILY [facility] Last Admin: 03/28/22 08:52 Dose: 75 mg Diclofenac Sodium (Diclofenac 1% Topical Gel 100 Gm) 1 applic TOPICAL QID PRN PRN Reason: pain Last Admin: 03/22/22 20:38 Dose: 1 applic Enoxaparin Sodium (Enoxaparin 120 Mg/0.8 Ml Syringe) 110 mg SUBCUT Q24H [facility] Last Admin: 03/27/22 17:14 Dose: 110 mg Furosemide (Furosemide 10 Mg/Ml Sdv 4ml) 40 mg IVP Q12H [facility] Last Admin: 03/28/22 11:58 Dose: 40 mg Glycerin (Glycerin Adult Supp) 1 each ID DAILY PRN PRN Reason: CONSTIPATION Last Admin: 03/26/22 20:43 Dose: 1 each Metoclopramide HCl (Metoclopramide 5 Mg/Ml Sdv 2 Ml) 5 mg IVP Q6H PRN PRN Reason: NAUSEA AND VOMITING Last Admin: 03/28/22 08:40 Dose: 5 mg Nitroglycerin (Nitroglycerin 0.4 Mg Sublingual Tablet) 0.4 mg SUBLINGUAL Q5M PRN PRN Reason: CHEST PAIN Last Admin: 03/25/22 21:35 Dose: 0.4 mg Patient Own Med - (Tamiflu 30 Mg) 0 each PO DAILY [facility] Stop: 03/30/22 09:01 Last Admin: 03/28/22 10:27 Dose: 1 each Ondansetron HCl (Ondansetron 2 Mg/Ml Sdv 2 Ml) 4 mg IVP Q6H PRN PRN Reason: NAUSEA AND VOMITING Last Admin: 03/28/22 10:30 Dose: 4 mg Potassium Chloride (Potassium Chloride Er 20 Meq Tablet) 40 meq PO DAILY [facility] Last Admin: 03/28/22 10:26 Dose: 40 meq Senna/Docusate Sodium (Sennosides-Docusate Tablet) 1 tab PO DAILY [facility] Last Admin: 03/28/22 10:25 Dose: 1 tab Sodium Chloride (Sodium Chloride 1 Gm Tablet) 1 gm PO TID [facility] Last Admin: 03/28/22 10:25 Dose: 1 gm Vitals/I&O/Wt Last Vital Signs Temp 98.4 F 03/28/22 09:00 Pulse 78 03/28/22 13:52 Resp 16 03/28/22 13:52 BP 104/64 03/28/22 12:00 Pulse Ox 96 03/28/22 13:52 O2 Del Method 03/28/22 13:52 O2 Flow Rate 3 03/28/22 13:52 FiO2 30 03/17/22 19:47 03/28/22 03/28/22 03/28/22 06:59 14:59 22:59 Intake Total 480 / 1360 400 / 400 Output Total 700 / 2700 600 / 600 Balance -220 / -1340 -200 / -200 Weight last 48 hrs Weight 238 lb Weight 239 lb 6 oz Physical Exam Narrative: GENERAL: The patient is alert and oriented times three. Not in any acute distress. HEENT: Mild pallor. No icterus or lymphadenopathy.Oral cavity: There are no muc ous membrane lesions. NECK: Trachea appears to be central. No masses noted. No JVD or thyromegaly a ppreciated. RESPIRATORY:'s scattered expiratory wheezing and occasional coarse crackles BREASTS: Deferred. HEART: The heart sounds are normal. No S3 or S4. No significant murmurs. No pericardial rub ABDOMEN: No vessel pulsations or distention. No tenderness. No organomegaly appreciated. Bowel sounds are normally heard. : Deferred. RECTAL: Deferred. LYMPHATIC: No lymphadenopathy noted in the neck. EXTREMITIES: 1+ edema both lower extremities. No cyanosis. MUSCULOSKELETAL: No acute joint deformities or swelling SKIN: There are no significant rashes or ecchymosis NEUROPSYCHIATRIC: The patient is alert and oriented x3. No focal motor deficits. Urinary Catheter Management: Yu: Cath Placed During This Visit: yes Reason for Continuing Indwelling Catheter: Accurate Measurement of Urinary Outp ut in Critically Ill Patients Urinary Catheter Date of Insertion: 03/16/22 Urinary Catheter Time of Insertion: 20:45 Data 03/27/22 01:12 03/28/22 13:40 Other Labs: Laboratory Last Values WBC 9.2 10^3/uL (4.0-10.0) 03/27/22 01:12 RBC 3.60 10^6/uL (4.1-5.3) L 03/27/22 01:12 Hgb 11.6 g/dL (11.5-15.3) 03/27/22 01:12 Hct 36.0 % (37.0-47.0) L 03/27/22 01:12 MCV 100.0 fl (81-99) H 03/27/22 01:12 MCH 32.2 pg (28.0-34.0) 03/27/22 01:12 MCHC 32.2 g/dL (30.0-36.0) 03/27/22 01:12 RDW 14.9 % (12.1-15.1) 03/27/22 01:12 Plt Count 169 10^3/cmm (130-400) 03/27/22 01:12 MPV 12.0 fL (7.4-10.4) H 03/27/22 01:12 Neut % (Auto) 79.9 % 03/27/22 01:12 Lymph % (Auto) 12.4 % 03/27/22 01:12 [place] % (Auto) 6.6 % 03/27/22 01:12 Eos % (Auto) 0.1 % 03/27/22 01:12 Baso % (Auto) 0.1 % 03/27/22 01:12 Neut # (Auto) 7.36 10^3/uL (1.8-7.7) 03/27/22 01:12 Lymph # (Auto) 1.1 10^3/uL (0.8-4.8) 03/27/22 01:12 [place] # (Auto) 0.6 10^3/uL (0.2-0.9) 03/27/22 01:12 Eos # (Auto) 0.0 10^3/uL (0.0-0.8) 03/27/22 01:12 Baso # (Auto) 0.0 10^3/uL (0.0-0.1) 03/27/22 01:12 Nucleated RBC % (auto) 0 % 03/27/22 01:12 Nucleated RBCs # 0.0 /100WBC 03/27/22 01:12 APTT 49.0 SECONDS (23.9-36.7) H 03/21/22 16:12 Specimen Type Arterial 03/17/22 08:26 Sample Site Brachial, right 03/17/22 08:26 ABG pH 7.30 (7.35-7.45) L 03/17/22 08:26 ABG pCO2 39.4 mmHg (35-45) 03/17/22 08:26 ABG pO2 130.0 mmHg (80.0-100.0) H 03/17/22 08:26 ABG HCO3 19.5 mmol/L (22-26) L 03/17/22 08:26 ABG O2 Saturation 99.2 03/17/22 08:26 ABG Base Excess -6.4 mmol/L (-2.0-2.0) L 03/17/22 08:26 Travis Test N/a 03/17/22 08:26 A-a O2 Gradient 4.8 mmHg (5-10) L 03/17/22 08:26 Hematocrit 36.4 % (37-47) L 03/17/22 08:26 Hgb O2 Saturation 97.8 % (95-100) 03/17/22 08:26 Carboxyhemoglobin 0.7 %THgb (0.4-20.1) 03/17/22 08:26 Methemoglobin 0.7 % (0.4-1.5) 03/17/22 08:26 Total Hemoglobin 11.9 g/dL (12-16) L 03/17/22 08:26 Sodium 124.0 mmol/L (131-143) L 03/17/22 08:26 Potassium 5.5 mmol/L (3.5-5.0) H 03/17/22 08:26 Glucose 178.0 mg/dL (70-115) H 03/17/22 08:26 Ionized Calcium 1.2 mmol/L (1.1-1.4) 03/17/22 08:26 O2 Delivery Device Cpap 03/17/22 08:26 FiO2 30.0 % 03/17/22 08:26 PEEP 10.0 cmH20 03/17/22 08:26 Pre Kindergarten Teacher ID Amh 03/17/22 08:26 Sodium 129 mmol/L (136-145) L 03/28/22 13:40 Potassium 3.9 mmol/L (3.5-5.1) 03/28/22 13:40 Chloride 89 mmol/L (98-107) L 03/28/22 13:40 Carbon Dioxide 29 mmol/L (22-29) 03/28/22 13:40 Anion Gap 14.9 (5-19) 03/28/22 13:40 BUN 82 mg/dL (8-23) H* D 03/28/22 13:40 Creatinine 1.5 mg/dL (0.5-0.9) H 03/28/22 13:40 GFR Calculation 34.6 mL/min (90-130) L 03/28/22 13:40 Glucose 293 mg/dL (65-115) H 03/28/22 13:40 POC Glucose 184 mg/dL (70-110) H 03/21/22 21:33 Calculated Osmolality 304 mOsm/kg (285-295) H 03/28/22 13:40 Uric Acid 8.0 mg/dL (2.4-5.7) H 03/21/22 02:38 Calcium 8.5 mg/dL (8.5-10.5) 03/28/22 13:40 Phosphorus 3.9 mg/dL (2.5-4.5) 03/23/22 02:09 Magnesium 2.4 mg/dL (1.7-2.3) H 03/25/22 05:00 Total Bilirubin 0.5 mg/dL (0.15-1.2) 03/27/22 01:12 AST 24 U/L (0-32) 03/27/22 01:12 ALT 142 U/L (0-33) H 03/27/22 01:12 Alkaline Phosphatase 95 U/L (35-105) 03/27/22 01:12 Troponin T Gen 5 ng/L 196 ng/L (0-10) H* 03/23/22 02:09 Troponin T Baseline 167 ng/L (0-10) H* 03/25/22 22:22 Troponin T 120 Minute 195.9 ng/L (0-10) H 03/26/22 01:50 Delta Troponin T 28.9 ABS# (0-10) H* 03/26/22 01:50 Troponin T Hi Sens 6Hr 233.2 ng/L (0-10) H 03/26/22 04:22 Troponin T Hi Sens 6Hr Delta 66.2 ng/L (0-12) H* 03/26/22 04:22 NT-Pro-B Natriuret Pep 68363 pg/mL (0-125) H 03/15/22 21:10 Total Protein 6.5 g/dL (6.6-8.7) L 03/27/22 01:12 Albumin 3.7 g/dL (3.5-5.2) 03/27/22 01:12 Globulin 2.8 g/dL (1.3-4.6) 03/27/22 01:12 Urine Color Colorless (Yellow) 03/17/22 11:35 Urine Appearance Sl hazy (CLEAR) A 03/17/22 11:35 Urine pH 5 (5-7) 03/17/22 11:35 Ur Specific [place] 1.010 (1.005-1.030) 03/17/22 11:35 Urine Protein Neg (Negative) 03/17/22 11:35 Urine Glucose (UA) Norm (Normal) 03/17/22 11:35 Urine Ketones Negative (Negative) 03/17/22 11:35 Urine Blood 3+ (Negative) H 03/17/22 11:35 Urine Nitrate Negative (Negative) 03/17/22 11:35 Urine Bilirubin Neg (Negative) 03/17/22 11:35 Urine Urobilinogen Norm mg/dL (Negative) 03/17/22 11:35 Ur Leukocyte Esterase Negative (Negative) 03/17/22 11:35 Urine RBC 15-25 /hpf (0-2) H 03/17/22 11:35 Urine WBC None /hpf (0-5) 03/17/22 11:35 Ur Squamous Epith Cells None /hpf (0-5) 03/17/22 11:35 Amorphous Sediment Not Reportable 03/17/22 11:35 Urine Bacteria Trace /hpf (NONE) 03/17/22 11:35 Hyaline Casts 0-4 /lpf H 03/17/22 11:35 Urine Mucus Trace /hpf 03/17/22 11:35 Ur Random Sodium 68 mmol/L 03/17/22 11:35 Urine Creatinine 21 mg/dL (28-217) L 03/17/22 11:35 Influenza Type A Ag positive (Negative) H 03/26/22 02:57 Influenza Type B Ag negative (Negative) 03/26/22 02:57 A&P Assessment and plan (1) CHF exacerbation: The heart failure seems to be getting compensated. Significant worsening of the LV systolic function. This could be a contributing factor for the ventricular tachycardia. Currently seems to have no recurrence of the tachyarrhythmia. (2) Troponin level elevated: Most likely the patient had a type I myocardial infarction. Patient is currently on Plavix. This may be continued. (3) Atherosclerotic heart disease of [place] coronary artery with other forms of angina pectoris: Patient needs a cardiac catheterization. However because of the acute kidney injury and the patient's difficulty in lying flat are major concerns. Patient has decided not to undergo any invasive procedures at this time. She seems understand implications. (4) Acute kidney injury: Her BUN has significantly gone up since yesterday. Etiology? Defer to neurology (5) ICD (implantable cardioverter-defibrillator), dual, in situ: The ICD function appears to be appropriate. (6) Wide-complex tachycardia: Since the patient has no recurrence of VT, may continue on the current medications. (7) Elevated liver enzymes: Almost returning back to baseline. Plan Other problems are as outlined before Continue on the current management. Discussed with Dr. Stanley Will continue to optimize medical treatment Physical therapy for ambulation Attestations Medical Necessity Statement*: Deferred to the primary Coding Level of Care Code Acute Gifted Program Teacher for Chg Fwd History Expanded Problem Focused Exam Expanded Problem Focused Medical Decision Making Moderate Complexity Diagnoses CHF exacerbation I50.9 Troponin level elevated R77.8 Atherosclerotic heart disease of [place] coronary artery with other forms of angina pectoris I25.118 Acute kidney injury N17.9 ICD (implantable cardioverter-defibrillator), dual, in situ Z95.810 Wide-complex tachycardia R00.0 Elevated liver enzymes R74.8
[2022-03-28] MEDS: enoxaparin 120 mg/0.8 mL Syringe 110 MG SUBCUT (17:51)
--- NOTE | 2022-03-28 18:41 | P.PN_ITS ---
Subjective Subjective: doing well Medications: Reviewed: Yes Vitals/I&O/Wt Last Vital Signs Temp 98.4 F 03/28/22 09:00 Pulse 78 03/28/22 13:52 Resp 16 03/28/22 13:52 BP 104/64 03/28/22 12:00 Pulse Ox 96 03/28/22 13:52 O2 Del Method 03/28/22 13:52 O2 Flow Rate 3 03/28/22 13:52 FiO2 30 03/17/22 19:47 03/28/22 03/28/22 03/28/22 06:59 14:59 22:59 Intake Total 480 / 1360 400 / 400 Output Total 700 / 2700 600 / 600 Balance -220 / -1340 -200 / -200 Weight last 48 hrs Weight 107.955 kg Weight 108.579 kg Physical Exam Resp: OTHER: Diminished air entry bilaterally per report Extremity: COMMON NORMALS: no pedal edema NARRATIVE EXTREMITY EXAM: 2+ bilateral lower extremity pitting edema Urinary Catheter Management: Yu: Cath Placed During This Visit: yes Reason for Continuing Indwelling Catheter: Accurate Measurement of Urinary Output in Critically Ill Patients Urinary Catheter Date of Insertion: 03/16/22 Urinary Catheter Time of Insertion: 20:45 Data 03/27/22 01:12 03/28/22 13:40 A&P Assessment and plan (1) Acute kidney injury: seen via telemedicine with assistance of RN at bedside (2) Hyponatremia: Plan 1. Hyponatremia, sodium improved- 129 today . I Status post 3% saline infusion..continue fluid restriction. Continue NaCl oral to 1 g TID. Continue low dose furosemide. 2. Acute kidney injury, urine output improved, creatinine 1.5 today, monitor 3. Decompensated heart failur: Lasix 40 mg p.o. twice daily 4. Chronic kidney disease: baseline Cr 1.5 - 1.6 mg/dL, small kidneys on renal us Attestations Medical Necessity Statement*: Deferred to the primary Coding Level of Care Code Acute Preload Supervisor for Miguelina Lynch Diagnoses Acute kidney injury N17.9 Hyponatremia E87.1
--- NOTE | 2022-03-28 18:56 | P.PN_ITS ---
Subjective Subjective: Ms. White is complaining of nausea today. She has had bowel movements yesterday and today. She is not willing to currently ambulate out of bed as she does not have her usual walker. She appears to be more dyspneic today. Developing Rales on exam and also increased lower extremity edema. No arrhythmias noted overnight. No acute events. Medications: Reviewed: Yes Medication Review Details: Current Medications Acetaminophen (Acetaminophen 500 Mg Tablet) 500 mg PO Q4H PRN PRN Reason: fever Last Admin: 03/28/22 10:24 Dose: 500 mg Albuterol/Ipratropium (Ipratropium-Albuterol 3 Ml Neb) 3 ml INHALATION Q6H [facility] Allopurinol (Allopurinol 300 Mg Tablet) 300 mg PO DAILY [facility] Last Admin: 03/19/22 08:33 Dose: 300 mg Alprazolam (Alprazolam 0.5 Mg Tablet) 0.25 mg PO TID PRN PRN Reason: ANXIETY Last Admin: 03/28/22 14:55 Dose: 0.25 mg Amiodarone HCl (Amiodarone 200 Mg Tablet) 400 mg PO DAILY [facility] Last Admin: 03/28/22 08:52 Dose: 400 mg Aspirin (Aspirin 81 Mg Chew Tablet) 81 mg PO DAILY [facility] Last Admin: 03/28/22 10:26 Dose: 81 mg Atorvastatin Calcium (Atorvastatin 40 Mg Tablet) 80 mg PO DAILY [facility] Last Admin: 03/19/22 08:33 Dose: 80 mg Benzocaine (Cetylpyridinium Lozenge) 1 each MUCOUS MEM Q2H PRN PRN Reason: SORE THROAT Last Admin: 03/26/22 22:54 Dose: 1 each Benzonatate (Benzonatate 100 Mg Capsule) 100 mg PO TID PRN PRN Reason: COUGH Last Admin: 03/25/22 10:39 Dose: 100 mg Budesonide (Budesonide 0.5 Mg/2 Ml Neb) 0.5 mg INHALATION BID.RESPIRATORY [place] Clopidogrel Bisulfate (Clopidogrel 75 Mg Tablet) 75 mg PO DAILY [facility] Last Admin: 03/28/22 08:52 Dose: 75 mg Diclofenac Sodium (Diclofenac 1% Topical Gel 100 Gm) 1 applic TOPICAL QID PRN PRN Reason: pain Last Admin: 03/22/22 20:38 Dose: 1 applic Enoxaparin Sodium (Enoxaparin 120 Mg/0.8 Ml Syringe) 110 mg SUBCUT Q24H [facility] Last Admin: 03/27/22 17:14 Dose: 110 mg Furosemide (Furosemide 10 Mg/Ml Sdv 4ml) 40 mg IVP Q12H [facility] Last Admin: 03/28/22 11:58 Dose: 40 mg Glycerin (Glycerin Adult Supp) 1 each [place] DAILY PRN PRN Reason: CONSTIPATION Last Admin: 03/26/22 20:43 Dose: 1 each Metoclopramide HCl (Metoclopramide 5 Mg/Ml Sdv 2 Ml) 5 mg IVP Q6H PRN PRN Reason: NAUSEA AND VOMITING Last Admin: 03/28/22 08:40 Dose: 5 mg Nitroglycerin (Nitroglycerin 0.4 Mg Sublingual Tablet) 0.4 mg SUBLINGUAL Q5M PRN PRN Reason: CHEST PAIN Last Admin: 03/25/22 21:35 Dose: 0.4 mg Patient Own Med - (Tamiflu 30 Mg) 0 each PO DAILY [facility] Stop: 03/30/22 09:01 Last Admin: 03/28/22 10:27 Dose: 1 each Ondansetron HCl (Ondansetron 2 Mg/Ml Sdv 2 Ml) 4 mg IVP Q6H PRN PRN Reason: NAUSEA AND VOMITING Last Admin: 03/28/22 10:30 Dose: 4 mg Potassium Chloride (Potassium Chloride Er 20 Meq Tablet) 40 meq PO DAILY [facility] Last Admin: 03/28/22 10:26 Dose: 40 meq Senna/Docusate Sodium (Sennosides-Docusate Tablet) 1 tab PO DAILY [facility] Last Admin: 03/28/22 10:25 Dose: 1 tab Sodium Chloride (Sodium Chloride 1 Gm Tablet) 1 gm PO TID [facility] Last Admin: 03/28/22 10:25 Dose: 1 gm Vitals/I&O/Wt Last Vital Signs Temp 98.6 F 03/28/22 18:00 Pulse 75 03/28/22 18:00 Resp 21 H 03/28/22 18:00 BP 99/77 03/28/22 18:00 Pulse Ox 97 03/28/22 18:00 O2 Del Method 03/28/22 18:00 O2 Flow Rate 3 03/28/22 18:00 FiO2 30 03/17/22 19:47 03/28/22 03/28/22 03/28/22 06:59 14:59 22:59 Intake Total 480 / 1360 400 / 400 200 / 600 Output Total 700 / 2700 600 / 600 1400 / 2000 Balance -220 / -1340 -200 / -200 -1200 / -1400 Weight last 48 hrs Weight 107.955 kg Weight 108.579 kg Physical Exam Narrative: General: sitting in in bed, tachypneic on exam, appears deconditioned and weak. HEENT: PERRLA, pupils bilaterally equal and reactive, pallors not present Chest: Crackles on auscultation bilaterally CVS: S1-S2 regular, no murmurs, no tachycardia, no gallops, no rubs Abdomen: Soft, nontender, no organomegaly, bowel sounds present Neuro: No focal deficits, no facial deformity, AO x3, power 5/5 in all limbs Extremities 1+ pitting edema bilaterally Urinary Catheter Management: Yu: Cath Placed During This Visit: yes Reason for Continuing Indwelling Catheter: Accurate Measurement of Urinary Output in Critically Ill Patients Urinary Catheter Date of Insertion: 03/16/22 Urinary Catheter Time of Insertion: 20:45 Data 03/27/22 01:12 03/28/22 13:40 A&P Assessment and plan (1) CHF exacerbation: (2) ICD (implantable cardioverter-defibrillator), dual, in situ: (3) Chronic episodic atrial fibrillation: (4) Hyperkalemia: (5) Hyponatremia: Plan 65 year old female who has history of chronic atrial fibrillation, ischemic cardiomyopathy PCI to right coronary mixed systolic diastolic congestive heart failure status post AICD placement(EF 30%) was brought in with chief complaint of worsening shortness of breath as well as cough going on for the last few days extremely bad yesterday, she was being treated as an outpatient by her PCP with azithromycin Augmentin, and prednisone for possible bronchitis. Currently she is being managed for # Ventricular tachycardia On amiodarone, intermittent episodes of non sustained V tach #Decompensated heart failure: d/c po lasix, will resume iv lasix 40mg iv q12h due to increased tachypene, rales on exam and edema cardiogenic shock now resolved # Influenza A Currently on tamiflu 30mg daily which is renally dosed scheduled duonebs, add budesonide inhalation every 12h d/c systemic steroids d/c ceftriaxone today, has received adequate course since admission # hyponatremia : likely related to hypervolemia s/p 3% NS, now on 1g po nacl TID renal following #Worsening YUDI on CKD: Baseline serum creatinine appears to be around 1.5-1.6: Possibly secondary CRS 2/2 decompensated heart failure Renal following #NSTEMI : Chronic atrial fibrillation on Eliquis: Unable to get further ischemic testing at this time as unable to lie flat, YUDI , avoiding contrast for angiogram. medical management to continue Cad[facility] following #Transaminitis: Possibly secondary to congestive hepatopathy CODE STATUS: Full code DVT prophylaxis: Not needed on Lovenox therapeutic, will plan to transition back to Eliquis Encourage PT/OT: currently not participating adequately, wants her own walker which her friend will bring in Dispo: She is deconditioned, lethargic, encouraged to consider SNF but declines. Will plan to return home with . She has IHS set up. Attestations Medical Necessity Statement*: iv diuresis, optimize diuresis and CHF Coding Level of Care Code Acute Pullman Car Repairer for [facility] Fwd Diagnoses CHF exacerbation I50.9 ICD (implantable cardioverter-defibrillator), dual, in situ Z95.810 Chronic episodic atrial fibrillation I48.20 Hyperkalemia E87.5 Hyponatremia E87.1
--- NOTE | 2022-03-28 19:07 | PC.NURSE ---
SHift SUmmary: Uneventful shift. Patient rested in bed for most of the day. Sat on the side of the bed for breakfast, lunch, and dinner. Midline placed to right arm. Central line in Right groin removed.
[2022-03-28] MEDS: budesonide 0.5 mg/2 mL Neb INHALATION (19:35)
[2022-03-29] VITALS (28 sets, daily range): BP systolic 91–127; BP diastolic 49–94; PULSE 70–91; RESP 14–28; TEMP 36.6–36.7; O2SAT 92–100
[2022-03-29] MEDS: ipratropium-albuterol 3 mL Neb INHALATION ×4 (02:05→20:27)
[2022-03-29] MEDS: ALPRAZolam 0.5 mg Tablet 0.25 MG PO ×2 (03:19→22:28)
[2022-03-29 03:26] LABS: Basophils % 0.1 %; Hematocrit 35.8 % (37.0-47.0); Hemoglobin 11.5 g/dL (11.5-15.3); Lymphocytes # 1.4 10^3/uL (0.8-4.8); Lymphocytes % 13.5 %; Mean Corpuscular HGB Conc 32.1 g/dL (30.0-36.0); Mean Corpuscular Hemoglobin 32.6 pg (28.0-34.0); Mean Corpuscular Volume 101.4 fl (81-99); Mean Platelet Volume 11.6 fL (7.4-10.4); Monocytes # 0.6 10^3/uL (0.2-0.9); Monocytes % 5.8 %; Neutrophils # 8.29 10^3/uL (1.8-7.7); Neutrophils % 79.5 %; Nucleated Red Blood Cells % 0 %; Platelet Count 182 10^3/cmm (130-400); Red Blood Count 3.53 10^6/uL (4.1-5.3); Red Cell Distribution Width 14.7 % (12.1-15.1); White Blood Count 10.4 10^3/uL (4.0-10.0)
[2022-03-29 06:05] LABS: Alanine Aminotransferase 72 U/L (0-33); Albumin Level 3.7 g/dL (3.5-5.2); Alkaline Phosphatase 86 U/L (35-105); Anion Gap 16.4 (5-19); Aspartate Amino Transferase 20 U/L (0-32); Blood Urea Nitrogen 70 mg/dL (8-23); Calcium 7.4 mg/dL (8.5-10.5); Carbon Dioxide 32 mmol/L (22-29); Chloride 90 mmol/L (98-107); Globulin 2.3 g/dL (1.3-4.6); Glucose 179 mg/dL (65-115); Osmolality Calculated 305 mOsm/kg (285-295); Potassium 3.4 mmol/L (3.5-5.1); Sodium 135 mmol/L (136-145); Total Bilirubin 0.5 mg/dL (0.15-1.2)
[2022-03-29] MEDS: ondansetron 2 mg/ML SDV 2 mL 4 MG IVP (07:04)
[2022-03-29] MEDS: budesonide 0.5 mg/2 mL Neb INHALATION ×2 (07:46→20:27)
[2022-03-29] MEDS: aspirin 81 mg Chew Tablet PO (08:18)
[2022-03-29] MEDS: potassium chloride ER 20 mEq Tablet 40 MEQ PO (08:18)
[2022-03-29] MEDS: allopurinol 300 mg Tablet PO (08:18)
[2022-03-29] MEDS: sodium chloride 1 gm Tablet PO ×3 (08:19→20:47)
[2022-03-29] MEDS: clopidogrel 75 mg Tablet PO (08:19)
[2022-03-29] MEDS: sennosides-docusate Tablet 1 TAB PO (08:19)
[2022-03-29] MEDS: amiodarone 200 mg Tablet 400 MG PO (08:19)
[2022-03-29] MEDS: acetaminophen 500 mg Tablet PO ×2 (09:53→22:28)
[2022-03-29] MEDS: FUROsemide 10 mg/mL SDV 4mL 40 MG IVP ×2 (12:31→22:45)
--- NOTE | 2022-03-29 14:23 | PM.PN ---
Subjective Subjective: doing well Medications: Reviewed: Yes Vitals/I&O/Wt Last Vital Signs Temp 98.0 F 03/29/22 09:00 Pulse 78 03/29/22 14:14 Resp 18 03/29/22 14:14 BP 127/81 03/29/22 12:00 Pulse Ox 98 03/29/22 14:14 O2 Del Method 03/29/22 14:14 O2 Flow Rate 4 03/29/22 14:14 FiO2 30 03/17/22 19:47 03/28/22 03/29/22 03/29/22 22:59 06:59 14:59 Intake Total 600 / 1000 400 / 400 Output Total 1400 / 2000 Balance -800 / -1000 400 / 400 Weight last 48 hrs Weight 107.955 kg Physical Exam Resp: OTHER: Diminished air entry bilaterally per report Extremity: COMMON NORMALS: no pedal edema NARRATIVE EXTREMITY EXAM: 2+ bilateral lower extremity pitting edema Urinary Catheter Management: Yu: Cath Placed During This Visit: yes Reason for Continuing Indwelling Catheter: Accurate Measurement of Urinary Output in Critically Ill Patients Urinary Catheter Date of Insertion: 03/16/22 Urinary Catheter Time of Insertion: 20:45 Data 03/29/22 02:43 03/29/22 05:35 A&P Assessment and plan (1) Acute kidney injury: seen via telemedicine with assistance of RN at bedside (2) Hyponatremia: Plan 1. Hyponatremia, sodium improved- 135 today . I Status post 3% saline infusion..continue fluid restriction. Continue NaCl oral to 1 g TID. Continue low dose furosemide. 2. Acute kidney injury, urine output improved, creatinine 1.7 today, monitor 3. Decompensated heart failur: Lasix 40 mg p.o. twice daily 4. Chronic kidney disease: baseline Cr 1.5 - 1.6 mg/dL, small kidneys on renal us Attestations Medical Necessity Statement*: optimize diuresis and CHF Coding Level of Care Code Acute Print Project Manager for Miguelina Lynch Diagnoses Acute kidney injury N17.9 Hyponatremia E87.1
[2022-03-29] MEDS: enoxaparin 120 mg/0.8 mL Syringe 110 MG SUBCUT (17:54)
--- NOTE | 2022-03-29 18:12 | PM.PN ---
Subjective Subjective: Ms. White looks much better today. She is still tachypneic, however looks much more alert and awake than on previous occasions. Sodium is at 135 today. Creatinine stable at 1.7. She is in much better spirits. Medications: Reviewed: Yes Medication Review Details: Current Medications Acetaminophen (Acetaminophen 500 Mg Tablet) 500 mg PO Q4H PRN PRN Reason: fever Last Admin: 03/28/22 10:24 Dose: 500 mg Albuterol/Ipratropium (Ipratropium-Albuterol 3 Ml Neb) 3 ml INHALATION Q6H [facility] Allopurinol (Allopurinol 300 Mg Tablet) 300 mg PO DAILY [facility] Last Admin: 03/19/22 08:33 Dose: 300 mg Alprazolam (Alprazolam 0.5 Mg Tablet) 0.25 mg PO TID PRN PRN Reason: ANXIETY Last Admin: 03/28/22 14:55 Dose: 0.25 mg Amiodarone HCl (Amiodarone 200 Mg Tablet) 400 mg PO DAILY [facility] Last Admin: 03/28/22 08:52 Dose: 400 mg Aspirin (Aspirin 81 Mg Chew Tablet) 81 mg PO DAILY [facility] Last Admin: 03/28/22 10:26 Dose: 81 mg Atorvastatin Calcium (Atorvastatin 40 Mg Tablet) 80 mg PO DAILY [facility] Last Admin: 03/19/22 08:33 Dose: 80 mg Benzocaine (Cetylpyridinium Lozenge) 1 each MUCOUS MEM Q2H PRN PRN Reason: SORE THROAT Last Admin: 03/26/22 22:54 Dose: 1 each Benzonatate (Benzonatate 100 Mg Capsule) 100 mg PO TID PRN PRN Reason: COUGH Last Admin: 03/25/22 10:39 Dose: 100 mg Budesonide (Budesonide 0.5 Mg/2 Ml Neb) 0.5 mg INHALATION BID.RESPIRATORY [place] Clopidogrel Bisulfate (Clopidogrel 75 Mg Tablet) 75 mg PO DAILY [facility] Last Admin: 03/28/22 08:52 Dose: 75 mg Diclofenac Sodium (Diclofenac 1% Topical Gel 100 Gm) 1 applic TOPICAL QID PRN PRN Reason: pain Last Admin: 03/22/22 20:38 Dose: 1 applic Enoxaparin Sodium (Enoxaparin 120 Mg/0.8 Ml Syringe) 110 mg SUBCUT Q24H [facility] Last Admin: 03/27/22 17:14 Dose: 110 mg Furosemide (Furosemide 10 Mg/Ml Sdv 4ml) 40 mg IVP Q12H [facility] Last Admin: 03/28/22 11:58 Dose: 40 mg Glycerin (Glycerin Adult Supp) 1 each [place] DAILY PRN PRN Reason: CONSTIPATION Last Admin: 03/26/22 20:43 Dose: 1 each Metoclopramide HCl (Metoclopramide 5 Mg/Ml Sdv 2 Ml) 5 mg IVP Q6H PRN PRN Reason: NAUSEA AND VOMITING Last Admin: 03/28/22 08:40 Dose: 5 mg Nitroglycerin (Nitroglycerin 0.4 Mg Sublingual Tablet) 0.4 mg SUBLINGUAL Q5M PRN PRN Reason: CHEST PAIN Last Admin: 03/25/22 21:35 Dose: 0.4 mg Patient Own Med - (Tamiflu 30 Mg) 0 each PO DAILY [facility] Stop: 03/30/22 09:01 Last Admin: 03/28/22 10:27 Dose: 1 each Ondansetron HCl (Ondansetron 2 Mg/Ml Sdv 2 Ml) 4 mg IVP Q6H PRN PRN Reason: NAUSEA AND VOMITING Last Admin: 03/28/22 10:30 Dose: 4 mg Potassium Chloride (Potassium Chloride Er 20 Meq Tablet) 40 meq PO DAILY [facility] Last Admin: 03/28/22 10:26 Dose: 40 meq Senna/Docusate Sodium (Sennosides-Docusate Tablet) 1 tab PO DAILY [facility] Last Admin: 03/28/22 10:25 Dose: 1 tab Sodium Chloride (Sodium Chloride 1 Gm Tablet) 1 gm PO TID [facility] Last Admin: 03/28/22 10:25 Dose: 1 gm Vitals/I&O/Wt Last Vital Signs Temp 98.0 F 03/29/22 09:00 Pulse 77 03/29/22 16:00 Resp 19 H 03/29/22 16:00 BP 108/71 03/29/22 14:00 Pulse Ox 96 03/29/22 16:00 O2 Del Method 03/29/22 14:14 O2 Flow Rate 4 03/29/22 14:14 FiO2 30 03/17/22 19:47 03/29/22 03/29/22 03/29/22 06:59 14:59 22:59 Intake Total 400 / 400 Output Total 700 / 700 Balance -300 / -300 Weight last 48 hrs Weight 107.955 kg Physical Exam Narrative: General: sitting in in bed, tachypneic on exam, appears deconditioned and weak. HEENT: PERRLA, pupils bilaterally equal and reactive, pallors not present Chest: Crackles on auscultation bilaterally CVS: S1-S2 regular, no murmurs, no tachycardia, no gallops, no rubs Abdomen: Soft, nontender, no organomegaly, bowel sounds present Neuro: No focal deficits, no facial deformity, AO x3, power 5/5 in all limbs Extremities 1+ pitting edema bilaterally Urinary Catheter Management: Yu: Cath Placed During This Visit: yes Reason for Continuing Indwelling Catheter: Accurate Measurement of Urinary Output in Critically Ill Patients Urinary Catheter Date of Insertion: 03/16/22 Urinary Catheter Time of Insertion: 20:45 Data 03/29/22 02:43 03/29/22 05:35 A&P Assessment and plan (1) CHF exacerbation: (2) ICD (implantable cardioverter-defibrillator), dual, in situ: (3) Chronic episodic atrial fibrillation: (4) Hyperkalemia: (5) Hyponatremia: Plan 65 year old female who has history of chronic atrial fibrillation, ischemic cardiomyopathy PCI to right coronary mixed systolic diastolic congestive heart failure status post AICD placement(EF 30%) was brought in with chief complaint of worsening shortness of breath as well as cough going on for the last few days extremely bad yesterday, she was being treated as an outpatient by her PCP with azithromycin Augmentin, and prednisone for possible bronchitis. Currently she is being managed for # Ventricular tachycardia On amiodarone, intermittent episodes of non sustained V tach #Decompensated heart failure: d/c po lasix, will resume iv lasix 40mg iv q12h due to increased tachypene, rales on exam and edema cardiogenic shock now resolved # Influenza A Currently on tamiflu 30mg daily which is renally dosed scheduled duonebs, add budesonide inhalation every 12h d/c systemic steroids d/c ceftriaxone today, has received adequate course since admission # hyponatremia : likely related to hypervolemia s/p 3% NS, now on 1g po nacl TID renal following #Worsening YUDI on CKD: Baseline serum creatinine appears to be around 1.5-1.6: Possibly secondary CRS 2/2 decompensated heart failure Renal following #NSTEMI : Chronic atrial fibrillation on Eliquis: Unable to get further ischemic testing at this time as unable to lie flat, YUDI , avoiding contrast for angiogram. medical management to continue Cadiology following #Transaminitis: Possibly secondary to congestive hepatopathy CODE STATUS: Full code DVT prophylaxis: Not needed on Lovenox therapeutic, will plan to transition back to Eliquis Encourage PT/OT: currently not participating adequately, wants her own walker which her friend will bring in Dispo: She is deconditioned, lethargic, encouraged to consider SNF but declines. Will plan to return home with HH. She has IHS set up. Plan for today: Continue IV Lasix, patient wants to return home adamantly. However she does not have any help at home. She is an extremely high fall risk and it is unsafe for her to return home without any supervision. She states that she will be able to have her family and friends, lives with her over the weekend and that is when we will plan to discharge her to ensure her safety. Attestations Medical Necessity Statement*: IV diuresis, will plan to transition to oral Lasix over the next 24 to 48 hours, safe disposition planning. Coding Level of Care Code Acute Specialty Therapist for Miguelina Lynch Diagnoses CHF exacerbation I50.9 ICD (implantable cardioverter-defibrillator), dual, in situ Z95.810 Chronic episodic atrial fibrillation I48.20 Hyperkalemia E87.5 Hyponatremia E87.1
--- NOTE | 2022-03-29 20:05 | P.PN_ITS ---
Subjective Subjective: The patient is feeling better. She seems to be ambulating more on the telemetry with the walker. Denies any chest pain. Has the dyspnea on exertion. No significant orthopnea. Medications: Medication Review Details: Current Medications Acetaminophen (Acetaminophen 500 Mg Tablet) 500 mg PO Q4H PRN PRN Reason: fever Last Admin: 03/29/22 09:53 Dose: 500 mg Albuterol/Ipratropium (Ipratropium-Albuterol 3 Ml Neb) 3 ml INHALATION Q6H [facility] Last Admin: 03/29/22 14:14 Dose: 3 ml Allopurinol (Allopurinol 300 Mg Tablet) 300 mg PO DAILY [facility] Last Admin: 03/29/22 08:18 Dose: 300 mg Alprazolam (Alprazolam 0.5 Mg Tablet) 0.25 mg PO TID PRN PRN Reason: ANXIETY Last Admin: 03/29/22 03:19 Dose: 0.25 mg Amiodarone HCl (Amiodarone 200 Mg Tablet) 400 mg PO DAILY [facility] Last Admin: 03/29/22 08:19 Dose: 400 mg Aspirin (Aspirin 81 Mg Chew Tablet) 81 mg PO DAILY [facility] Last Admin: 03/29/22 08:18 Dose: 81 mg Atorvastatin Calcium (Atorvastatin 40 Mg Tablet) 80 mg PO DAILY [facility] Last Admin: 03/19/22 08:33 Dose: 80 mg Benzocaine (Cetylpyridinium Lozenge) 1 each MUCOUS MEM Q2H PRN PRN Reason: SORE THROAT Last Admin: 03/26/22 22:54 Dose: 1 each Benzonatate (Benzonatate 100 Mg Capsule) 100 mg PO TID PRN PRN Reason: COUGH Last Admin: 03/25/22 10:39 Dose: 100 mg Budesonide (Budesonide 0.5 Mg/2 Ml Neb) 0.5 mg INHALATION BID.RESPIRATORY [facility] Last Admin: 03/29/22 07:46 Dose: 0.5 mg Clopidogrel Bisulfate (Clopidogrel 75 Mg Tablet) 75 mg PO DAILY [facility] Last Admin: 03/29/22 08:19 Dose: 75 mg Diclofenac Sodium (Diclofenac 1% Topical Gel 100 Gm) 1 applic TOPICAL QID PRN PRN Reason: pain Last Admin: 03/22/22 20:38 Dose: 1 applic Enoxaparin Sodium (Enoxaparin 120 Mg/0.8 Ml Syringe) 110 mg SUBCUT Q24H [facility] Last Admin: 03/29/22 17:54 Dose: 110 mg Furosemide (Furosemide 10 Mg/Ml Sdv 4ml) 40 mg IVP Q12H [facility] Last Admin: 03/29/22 12:31 Dose: 40 mg Glycerin (Glycerin Adult Supp) 1 each [place] DAILY PRN PRN Reason: CONSTIPATION Last Admin: 03/26/22 20:43 Dose: 1 each Metoclopramide HCl (Metoclopramide 5 Mg/Ml Sdv 2 Ml) 5 mg IVP Q6H PRN PRN Reason: NAUSEA AND VOMITING Last Admin: 03/28/22 08:40 Dose: 5 mg Nitroglycerin (Nitroglycerin 0.4 Mg Sublingual Tablet) 0.4 mg SUBLINGUAL Q5M PRN PRN Reason: CHEST PAIN Last Admin: 03/25/22 21:35 Dose: 0.4 mg Patient Own Med - (Tamiflu 30 Mg) 0 each PO DAILY [facility] Stop: 03/30/22 09:01 Last Admin: 03/29/22 08:19 Dose: 1 each Ondansetron HCl (Ondansetron 2 Mg/Ml Sdv 2 Ml) 4 mg IVP Q6H PRN PRN Reason: NAUSEA AND VOMITING Last Admin: 03/29/22 07:04 Dose: 4 mg Potassium Chloride (Potassium Chloride Er 20 Meq Tablet) 40 meq PO DAILY [facility] Last Admin: 03/29/22 08:18 Dose: 40 meq Senna/Docusate Sodium (Sennosides-Docusate Tablet) 1 tab PO DAILY [facility] Last Admin: 03/29/22 08:19 Dose: 1 tab Sodium Chloride (Sodium Chloride 1 Gm Tablet) 1 gm PO TID [facility] Last Admin: 03/29/22 15:55 Dose: 1 gm Vitals/I&O/Wt Last Vital Signs Temp 98.0 F 03/29/22 09:00 Pulse 77 03/29/22 16:00 Resp 19 H 03/29/22 16:00 BP 108/71 03/29/22 14:00 Pulse Ox 96 03/29/22 16:00 O2 Del Method 03/29/22 14:14 O2 Flow Rate 4 03/29/22 14:14 FiO2 30 03/17/22 19:47 03/29/22 03/29/22 03/29/22 06:59 14:59 22:59 Intake Total 400 / 400 120 / 520 Output Total 700 / 700 220 / 920 Balance -300 / -300 -100 / -400 Weight last 48 hrs Weight 238 lb Physical Exam Narrative: GENERAL: The patient is alert and oriented times three. Not in any acute distress. HEENT: Minimal pallor. No icterus or lymphadenopathy.Oral cavity: There are no mucous membrane lesions. NECK: Trachea appears to be central. No masses noted. No JVD or thyromegaly appreciated. RESPIRATORY: Chest is symmetrical. No intercostals muscle retraction or any accessory muscle activation. There is no chest wall tenderness. Breath sounds are heard bilaterally. No rales or rhonchi heard. No evidence of any consolidation. BREASTS: Deferred. HEART: The heart sounds are normal. No S3 or S4. No significant murmurs. No pericardial rub ABDOMEN: No vessel pulsations or distention. No tenderness. No organomegaly appreciated. Bowel sounds are normally heard. : Deferred. RECTAL: Deferred. LYMPHATIC: No lymphadenopathy noted in the neck. EXTREMITIES: Trace edema with no cyanosis. MUSCULOSKELETAL: No acute joint deformities or swelling SKIN: There are no significant rashes or ecchymosis NEUROPSYCHIATRIC: The patient is alert and oriented x3. Appears to be in a good mood. No tremors or rigidity noted. Urinary Catheter Management: Yu: Cath Placed During This Visit: yes Reason for Continuing Indwelling Catheter: Other Urinary Catheter Date of Insertion: 03/16/22 Urinary Catheter Time of Insertion: 20:45 Data 03/29/22 02:43 03/29/22 05:35 A&P Assessment and plan (1) CHF exacerbation: The heart failure seems to be getting compensated. Significant worsening of the LV systolic function. This could be a contributing factor for the ventricular tachycardia. Currently seems to have no recurrence of the tachyarrhythmia. (2) Troponin level elevated: Most likely the patient had a type I myocardial infarction. Patient is currently on Plavix. This may be continued. (3) Atherosclerotic heart disease of [place] coronary artery with other forms of angina pectoris: Patient needs a cardiac catheterization. Patient has decided not to undergo any invasive procedures at this time. She seems understand implications. We will continue the medical management (4) Acute kidney injury: Persistent high BUN/creatinine ratio (5) ICD (implantable cardioverter-defibrillator), dual, in situ: The ICD function appears to be appropriate. We will do an ICD interrogation by the [employer] patient intake representative tomorrow (6) Wide-complex tachycardia: Since the patient has no recurrence of VT, may continue on the current medications. (7) Elevated liver enzymes: Almost returning back to baseline. Plan Other problems are as outlined before Continue on the current management. Restart Eliquis tomorrow ICD interrogation by the device patient intake representative tomorrow Continue physical therapy for ambulation Attestations Medical Necessity Statement*: Disposition as per the primary Coding Level of Care Code Acute Recreation Officer for Chg Fwd History Expanded Problem Focused Exam Expanded Problem Focused Medical Decision Making Moderate Complexity Diagnoses CHF exacerbation I50.9 Troponin level elevated R77.8 Atherosclerotic heart disease of [place] coronary artery with other forms of angina pectoris I25.118 Acute kidney injury N17.9 ICD (implantable cardioverter-defibrillator), dual, in situ Z95.810 Wide-complex tachycardia R00.0 Elevated liver enzymes R74.8
[2022-03-30] VITALS (21 sets, daily range): BP systolic 116–128; BP diastolic 58–82; PULSE 69–109; RESP 15–32; TEMP 36.6–37; O2SAT 95–100; BMI 35.1
[2022-03-30 05:45] LABS: Basophils % 0.1 %; Eosinophils % 0.1 %; Hematocrit 29.8 % (37.0-47.0); Hemoglobin 9.9 g/dL (11.5-15.3); Lymphocytes # 1.6 10^3/uL (0.8-4.8); Lymphocytes % 15.9 %; Mean Corpuscular HGB Conc 33.2 g/dL (30.0-36.0); Mean Corpuscular Hemoglobin 32.8 pg (28.0-34.0); Mean Corpuscular Volume 98.7 fl (81-99); Monocytes # 0.6 10^3/uL (0.2-0.9); Monocytes % 5.4 %; Neutrophils # 7.92 10^3/uL (1.8-7.7); Neutrophils % 77.2 %; Nucleated Red Blood Cells % 0 %; Platelet Count 165 10^3/cmm (130-400); Red Blood Count 3.02 10^6/uL (4.1-5.3); White Blood Count 10.3 10^3/uL (4.0-10.0)
[2022-03-30 06:10] LABS: Alanine Aminotransferase 61 U/L (0-33); Albumin Level 3.6 g/dL (3.5-5.2); Alkaline Phosphatase 73 U/L (35-105); Anion Gap 12.4 (5-19); Aspartate Amino Transferase 19 U/L (0-32); Blood Urea Nitrogen 70 mg/dL (8-23); Calcium 8.9 mg/dL (8.5-10.5); Carbon Dioxide 33 mmol/L (22-29); Chloride 94 mmol/L (98-107); Globulin 2.1 g/dL (1.3-4.6); Glomerular Filtration Rate 32.2 mL/min (90-130); Glucose 146 mg/dL (65-115); Osmolality Calculated 305 mOsm/kg (285-295); Potassium 3.4 mmol/L (3.5-5.1); Sodium 136 mmol/L (136-145); Total Bilirubin 0.8 mg/dL (0.15-1.2); Total Protein 5.7 g/dL (6.6-8.7)
[2022-03-30] MEDS: acetaminophen 500 mg Tablet PO ×2 (08:03→20:14)
[2022-03-30] MEDS: ipratropium-albuterol 3 mL Neb INHALATION ×2 (09:18→21:39)
[2022-03-30] MEDS: budesonide 0.5 mg/2 mL Neb INHALATION ×2 (09:18→21:40)
[2022-03-30] MEDS: amiodarone 200 mg Tablet 400 MG PO (10:04)
[2022-03-30] MEDS: sodium chloride 1 gm Tablet PO ×3 (10:05→20:14)
[2022-03-30] MEDS: sennosides-docusate Tablet 1 TAB PO (10:06)
[2022-03-30] MEDS: clopidogrel 75 mg Tablet PO (10:06)
[2022-03-30] MEDS: aspirin 81 mg Chew Tablet PO (10:07)
[2022-03-30] MEDS: potassium chloride ER 20 mEq Tablet 40 MEQ PO (10:09)
--- NOTE | 2022-03-30 10:31 | P.PN_ITS ---
Subjective Subjective: Continues to feel better today. She has her walker at bedside and is ambulating a little bit in the room. Eager to get her catheter out. States breathing is better but she has some lower nonspecific back pain today. She has been afebrile and hemodynamically stable. Saturating 100% on 2 L/min supplemental O2. Medications: Reviewed: Yes Medication Review Details: Current Medications Acetaminophen (Acetaminophen 500 Mg Tablet) 500 mg PO Q4H PRN PRN Reason: fever Last Admin: 03/29/22 09:53 Dose: 500 mg Albuterol/Ipratropium (Ipratropium-Albuterol 3 Ml Neb) 3 ml INHALATION Q6H [facility] Last Admin: 03/29/22 14:14 Dose: 3 ml Allopurinol (Allopurinol 300 Mg Tablet) 300 mg PO DAILY [facility] Last Admin: 03/29/22 08:18 Dose: 300 mg Alprazolam (Alprazolam 0.5 Mg Tablet) 0.25 mg PO TID PRN PRN Reason: ANXIETY Last Admin: 03/29/22 03:19 Dose: 0.25 mg Amiodarone HCl (Amiodarone 200 Mg Tablet) 400 mg PO DAILY [facility] Last Admin: 03/29/22 08:19 Dose: 400 mg Aspirin (Aspirin 81 Mg Chew Tablet) 81 mg PO DAILY [facility] Last Admin: 03/29/22 08:18 Dose: 81 mg Atorvastatin Calcium (Atorvastatin 40 Mg Tablet) 80 mg PO DAILY [facility] Last Admin: 03/19/22 08:33 Dose: 80 mg Benzocaine (Cetylpyridinium Lozenge) 1 each MUCOUS MEM Q2H PRN PRN Reason: SORE THROAT Last Admin: 03/26/22 22:54 Dose: 1 each Benzonatate (Benzonatate 100 Mg Capsule) 100 mg PO TID PRN PRN Reason: COUGH Last Admin: 03/25/22 10:39 Dose: 100 mg Budesonide (Budesonide 0.5 Mg/2 Ml Neb) 0.5 mg INHALATION BID.RESPIRATORY [facility] Last Admin: 03/29/22 07:46 Dose: 0.5 mg Clopidogrel Bisulfate (Clopidogrel 75 Mg Tablet) 75 mg PO DAILY [facility] Last Admin: 03/29/22 08:19 Dose: 75 mg Diclofenac Sodium (Diclofenac 1% Topical Gel 100 Gm) 1 applic TOPICAL QID PRN PRN Reason: pain Last Admin: 03/22/22 20:38 Dose: 1 applic Enoxaparin Sodium (Enoxaparin 120 Mg/0.8 Ml Syringe) 110 mg SUBCUT Q24H [facility] Last Admin: 03/29/22 17:54 Dose: 110 mg Furosemide (Furosemide 10 Mg/Ml Sdv 4ml) 40 mg IVP Q12H [facility] Last Admin: 03/29/22 12:31 Dose: 40 mg Glycerin (Glycerin Adult Supp) 1 each [place] DAILY PRN PRN Reason: CONSTIPATION Last Admin: 03/26/22 20:43 Dose: 1 each Metoclopramide HCl (Metoclopramide 5 Mg/Ml Sdv 2 Ml) 5 mg IVP Q6H PRN PRN Reason: NAUSEA AND VOMITING Last Admin: 03/28/22 08:40 Dose: 5 mg Nitroglycerin (Nitroglycerin 0.4 Mg Sublingual Tablet) 0.4 mg SUBLINGUAL Q5M [place] N PRN Reason: CHEST PAIN Last Admin: 03/25/22 21:35 Dose: 0.4 mg Patient Own Med - (Tamiflu 30 Mg) 0 each PO DAILY [facility] Stop: 03/30/22 09:01 Last Admin: 03/29/22 08:19 Dose: 1 each Ondansetron HCl (Ondansetron 2 Mg/Ml Sdv 2 Ml) 4 mg IVP Q6H PRN PRN Reason: NAUSEA AND VOMITING Last Admin: 03/29/22 07:04 Dose: 4 mg Potassium Chloride (Potassium Chloride Er 20 Meq Tablet) 40 meq PO DAILY [facility] Last Admin: 03/29/22 08:18 Dose: 40 meq Senna/Docusate Sodium (Sennosides-Docusate Tablet) 1 tab PO DAILY [facility] Last Admin: 03/29/22 08:19 Dose: 1 tab Sodium Chloride (Sodium Chloride 1 Gm Tablet) 1 gm PO TID [facility] Last Admin: 03/29/22 15:55 Dose: 1 gm Vitals/I&O/Wt Last Vital Signs Temp 98.6 F 03/30/22 07:00 Pulse 79 03/30/22 09:26 Resp 16 03/30/22 09:20 BP 123/80 03/30/22 08:00 Pulse Ox 100 03/30/22 09:20 O2 Del Method 03/30/22 09:20 O2 Flow Rate 2 03/30/22 09:20 FiO2 30 03/17/22 19:47 03/29/22 03/30/22 03/30/22 22:59 06:59 14:59 Intake Total 520 / 920 240 / 240 Output Total 220 / 920 1700 / 2620 Balance 300 / 0 -1700 / -1700 240 / 240 Weight last 48 hrs Weight 107.955 kg Physical Exam Narrative: General: sitting in in bed, good spirits today, seems symptomatically improved. Tachypneic but much easier to converse today. HEENT: PERRLA, pupils bilaterally equal and reactive, pallors not present Chest: Crackles on auscultation bilaterally CVS: S1-S2 regular, no murmurs, no tachycardia, no gallops, no rubs Abdomen: Soft, nontender, no organomegaly, bowel sounds present Neuro: No focal deficits, no facial deformity, AO x3, power 5/5 in all limbs Extremities improving pitting edema bilaterally Urinary Catheter Management: Smith: Cath Placed During This Visit: yes Reason for Continuing Indwelling Catheter: Other Urinary Catheter Date of Insertion: 03/16/22 Urinary Catheter Time of Insertion: 20:45 Data 03/30/22 05:34 03/30/22 05:34 A&P Assessment and plan (1) CHF exacerbation: (2) ICD (implantable cardioverter-defibrillator), dual, in situ: (3) Chronic episodic atrial fibrillation: (4) Hyperkalemia: (5) Hyponatremia: Plan 65 year old female who has history of chronic atrial fibrillation, ischemic cardiomyopathy PCI to right coronary mixed systolic diastolic congestive heart failure status post AICD placement(EF 30%) was brought in with chief complaint of worsening shortness of breath as well as cough going on for the last few days extremely bad yesterday, she was being treated as an outpatient by her PCP with azithromycin Augmentin, and prednisone for possible bronchitis. Currently she is being managed for : # Ventricular tachycardia On amiodarone, intermittent episodes of non sustained V tach #Decompensated heart failure: change iv lasix to po lasix 80mg BID today. cardiogenic shock now resolved # Influenza A Currently on tamiflu 30mg daily which is renally dosed completing day 5 today scheduled duonebs, add budesonide inhalation every 12h supportive treatment # hyponatremia : likely related to hypervolemia s/p 3% NS, now on 1g po nacl TID renal following #Worsening YUDI on CKD: Baseline serum creatinine appears to be around 1.5-1.6: Possibly secondary CRS 2/2 decompensated heart failure Renal following , cr now trending back to baseline #NSTEMI : Chronic atrial fibrillation on Eliquis: Unable to get further ischemic testing at this time as unable to lie flat, YUDI , avoiding contrast for angiogram. medical management to continue Cadiology following #Transaminitis: Possibly secondary to congestive hepatopathy. Statins on hold. # A fib with RVR: rate well controlled. D/c full dose lovenox today and resume eliquis 5mg BID CODE STATUS: Full code DVT prophylaxis: Eliquis Encourage PT/OT: has her own walker now, able to ambulate with this D/c smith Dispo: She is deconditioned, encouraged to consider SNF but declines. Will plan to return home with HH. She has IHS set up. Her family and friends will be here tomorrow to help out. She is optimized as best as possible for now, transition all iv medications to po today in anticipation of discharge over next 24 hrs. Attestations Medical Necessity Statement*: transition iv to po diuretics, resume eliquis, anticipate discharge over next 24 hrs Coding Level of Care Code Acute Export Traffic Department Manager for [employer] Fwd Diagnoses CHF exacerbation I50.9 ICD (implantable cardioverter-defibrillator), dual, in situ Z95.810 Chronic episodic atrial fibrillation I48.20 Hyperkalemia E87.5 Hyponatremia E87.1
[2022-03-30] MEDS: allopurinol 300 mg Tablet PO (10:38)
--- NOTE | 2022-03-30 10:54 | PC.SOCIAL ---
IMM Update pg 2 of IMM updated and reviewed w/ patient. Copy provided and Copy in chart dated, and initialed.
[2022-03-30] MEDS: ondansetron 2 mg/ML SDV 2 mL 4 MG IVP (13:26)
[2022-03-30] MEDS: ALPRAZolam 0.5 mg Tablet 0.25 MG PO (13:34)
--- NOTE | 2022-03-30 13:45 | PM.PN ---
Subjective Subjective: The patient is complaining of some nausea. No chest pain or shortness of breath. No new arrhythmias on the monitor. Mostly V paced rhythm. Medications: Medication Review Details: Current Medications Acetaminophen (Acetaminophen 500 Mg Tablet) 500 mg PO Q4H PRN PRN Reason: fever Last Admin: 03/30/22 08:03 Dose: 500 mg Albuterol/Ipratropium (Ipratropium-Albuterol 3 Ml Neb) 3 ml INHALATION Q6H MINGO Last Admin: 03/30/22 09:18 Dose: 3 ml Allopurinol (Allopurinol 300 Mg Tablet) 300 mg PO DAILY MINGO Last Admin: 03/30/22 10:38 Dose: 300 mg Alprazolam (Alprazolam 0.5 Mg Tablet) 0.25 mg PO TID PRN PRN Reason: ANXIETY Last Admin: 03/30/22 13:34 Dose: 0.25 mg Amiodarone HCl (Amiodarone 200 Mg Tablet) 400 mg PO DAILY MINGO Last Admin: 03/30/22 10:04 Dose: 400 mg Apixaban (Apixaban 5 Mg Tablet) 5 mg PO BID@0900,2100 [facility] Aspirin (Aspirin 81 Mg Chew Tablet) 81 mg PO DAILY [facility] Last Admin: 03/30/22 10:07 Dose: 81 mg Atorvastatin Calcium (Atorvastatin 40 Mg Tablet) 80 mg PO DAILY [facility] Last Admin: 03/19/22 08:33 Dose: 80 mg Benzocaine (Cetylpyridinium Lozenge) 1 each MUCOUS MEM Q2H PRN PRN Reason: SORE THROAT Last Admin: 03/26/22 22:54 Dose: 1 each Benzonatate (Benzonatate 100 Mg Capsule) 100 mg PO TID PRN PRN Reason: COUGH Last Admin: 03/25/22 10:39 Dose: 100 mg Budesonide (Budesonide 0.5 Mg/2 Ml Neb) 0.5 mg INHALATION BID.RESPIRATORY MINGO Last Admin: 03/30/22 09:18 Dose: 0.5 mg Clopidogrel Bisulfate (Clopidogrel 75 Mg Tablet) 75 mg PO DAILY [facility] Last Admin: 03/30/22 10:06 Dose: 75 mg Diclofenac Sodium (Diclofenac 1% Topical Gel 100 Gm) 1 applic TOPICAL QID PRN PRN Reason: pain Last Admin: 03/22/22 20:38 Dose: 1 applic Furosemide (Furosemide 40 Mg Tablet) 80 mg PO BID@08,16 [facility] Glycerin (Glycerin Adult Supp) 1 each MD DAILY PRN PRN Reason: CONSTIPATION Last Admin: 03/26/22 20:43 Dose: 1 each Metoclopramide HCl (Metoclopramide 5 Mg/Ml Sdv 2 Ml) 5 mg IVP Q6H PRN PRN Reason: NAUSEA AND VOMITING Last Admin: 03/28/22 08:40 Dose: 5 mg Nitroglycerin (Nitroglycerin 0.4 Mg Sublingual Tablet) 0.4 mg SUBLINGUAL Q5M PRN PRN Reason: CHEST PAIN Last Admin: 03/25/22 21:35 Dose: 0.4 mg Ondansetron HCl (Ondansetron 2 Mg/Ml Sdv 2 Ml) 4 mg IVP Q6H PRN PRN Reason: NAUSEA AND VOMITING Last Admin: 03/30/22 13:26 Dose: 4 mg Potassium Chloride (Potassium Chloride Er 20 Meq Tablet) 40 meq PO DAILY [facility] Last Admin: 03/30/22 10:09 Dose: 40 meq Senna/Docusate Sodium (Sennosides-Docusate Tablet) 1 tab PO DAILY [facility] Last Admin: 03/30/22 10:06 Dose: 1 tab Sodium Chloride (Sodium Chloride 1 Gm Tablet) 1 gm PO TID [facility] Last Admin: 03/30/22 10:05 Dose: 1 gm Vitals/I&O/Wt Last Vital Signs Temp 97.8 F 03/30/22 12:00 Pulse 109 H 03/30/22 13:00 Resp 32 H 03/30/22 13:00 BP 128/82 03/30/22 13:00 Pulse Ox 96 03/30/22 12:00 O2 Del Method 03/30/22 09:20 O2 Flow Rate 2 03/30/22 09:20 FiO2 30 03/17/22 19:47 03/29/22 03/30/22 03/30/22 22:59 06:59 14:59 Intake Total 520 / 920 480 / 480 Output Total 220 / 920 1700 / 2620 Balance 300 / 0 -1700 / -1700 480 / 480 Weight last 48 hrs Weight 238 lb Physical Exam Narrative: GENERAL: The patient is alert and oriented times three. Not in any acute distress. HEENT: Minimal pallor. No icterus or lymphadenopathy.Oral cavity: There are no mucous membrane lesions. NECK: Trachea appears to be central. No masses noted. No JVD or thyromegaly appreciated. RESPIRATORY: Chest is symmetrical. No intercostals muscle retraction or any accessory muscle activation. There is no chest wall tenderness. Breath sounds are heard bilaterally. No rales or rhonchi heard. No evidence of any consolidation. BREASTS: Deferred. HEART: The heart sounds are normal. No S3 or S4. No significant murmurs. No pericardial rub ABDOMEN: No vessel pulsations or distention. No tenderness. No organomegaly appreciated. Bowel sounds are normally heard. : Deferred. RECTAL: Deferred. LYMPHATIC: No lymphadenopathy noted in the neck. EXTREMITIES: Trace edema with no cyanosis. MUSCULOSKELETAL: No acute joint deformities or swelling SKIN: There are no significant rashes. Has few healing ecchymotic areas in the upper extremities NEUROPSYCHIATRIC: The patient is alert and oriented x3. Appears to be in a good mood. No tremors or rigidity noted. Urinary Catheter Management: Yu: Cath Placed During This Visit: yes Reason for Continuing Indwelling Catheter: Other Urinary Catheter Date of Insertion: 03/16/22 Urinary Catheter Time of Insertion: 20:45 Data 03/30/22 05:34 03/30/22 05:34 Other Labs: Laboratory Last Values WBC 10.3 10^3/uL (4.0-10.0) H 03/30/22 05:34 RBC 3.02 10^6/uL (4.1-5.3) L 03/30/22 05:34 Hgb 9.9 g/dL (11.5-15.3) L 03/30/22 05:34 Hct 29.8 % (37.0-47.0) L 03/30/22 05:34 MCV 98.7 fl (81-99) 03/30/22 05:34 MCH 32.8 pg (28.0-34.0) 03/30/22 05:34 MCHC 33.2 g/dL (30.0-36.0) 03/30/22 05:34 RDW 15.0 % (12.1-15.1) 03/30/22 05:34 Plt Count 165 10^3/cmm (130-400) 03/30/22 05:34 MPV 11.0 fL (7.4-10.4) H 03/30/22 05:34 Neut % (Auto) 77.2 % 03/30/22 05:34 Lymph % (Auto) 15.9 % 03/30/22 05:34 [place] % (Auto) 5.4 % 03/30/22 05:34 Eos % (Auto) 0.1 % 03/30/22 05:34 Baso % (Auto) 0.1 % 03/30/22 05:34 Neut # (Auto) 7.92 10^3/uL (1.8-7.7) H 03/30/22 05:34 Lymph # (Auto) 1.6 10^3/uL (0.8-4.8) 03/30/22 05:34 [place] # (Auto) 0.6 10^3/uL (0.2-0.9) 03/30/22 05:34 Eos # (Auto) 0.0 10^3/uL (0.0-0.8) 03/30/22 05:34 Baso # (Auto) 0.0 10^3/uL (0.0-0.1) 03/30/22 05:34 Nucleated RBC % (auto) 0 % 03/30/22 05:34 Nucleated RBCs # 0.0 /100WBC 03/30/22 05:34 APTT 49.0 SECONDS (23.9-36.7) H 03/21/22 16:12 Specimen Type Arterial 03/17/22 08:26 Sample Site Brachial, right 03/17/22 08:26 ABG pH 7.30 (7.35-7.45) L 03/17/22 08:26 ABG pCO2 39.4 mmHg (35-45) 03/17/22 08:26 ABG pO2 130.0 mmHg (80.0-100.0) H 03/17/22 08:26 ABG HCO3 19.5 mmol/L (22-26) L 03/17/22 08:26 ABG O2 Saturation 99.2 03/17/22 08:26 ABG Base Excess -6.4 mmol/L (-2.0-2.0) L 03/17/22 08:26 Travis Test N/a 03/17/22 08:26 A-a O2 Gradient 4.8 mmHg (5-10) L 03/17/22 08:26 Hematocrit 36.4 % (37-47) L 03/17/22 08:26 Hgb O2 Saturation 97.8 % (95-100) 03/17/22 08:26 Carboxyhemoglobin 0.7 %THgb (0.4-20.1) 03/17/22 08:26 Methemoglobin 0.7 % (0.4-1.5) 03/17/22 08:26 Total Hemoglobin 11.9 g/dL (12-16) L 03/17/22 08:26 Sodium 124.0 mmol/L (131-143) L 03/17/22 08:26 Potassium 5.5 mmol/L (3.5-5.0) H 03/17/22 08:26 Glucose 178.0 mg/dL (70-115) H 03/17/22 08:26 Ionized Calcium 1.2 mmol/L (1.1-1.4) 03/17/22 08:26 O2 Delivery Device Cpap 03/17/22 08:26 FiO2 30.0 % 03/17/22 08:26 PEEP 10.0 cmH20 03/17/22 08:26 Seam Taper Machine ID [id number] 03/17/22 08:26 Sodium 136 mmol/L (136-145) 03/30/22 05:34 Potassium 3.4 mmol/L (3.5-5.1) L 03/30/22 05:34 Chloride 94 mmol/L (98-107) L 03/30/22 05:34 Carbon Dioxide 33 mmol/L (22-29) H 03/30/22 05:34 Anion Gap 12.4 (5-19) 03/30/22 05:34 BUN 70 mg/dL (8-23) H 03/30/22 05:34 Creatinine 1.6 mg/dL (0.5-0.9) H 03/30/22 05:34 GFR Calculation 32.2 mL/min (90-130) L 03/30/22 05:34 Glucose 146 mg/dL (65-115) H 03/30/22 05:34 POC Glucose 184 mg/dL (70-110) H 03/21/22 21:33 Calculated Osmolality 305 mOsm/kg (285-295) H 03/30/22 05:34 Uric Acid 8.0 mg/dL (2.4-5.7) H 03/21/22 02:38 Calcium 8.9 mg/dL (8.5-10.5) 03/30/22 05:34 Phosphorus 3.9 mg/dL (2.5-4.5) 03/23/22 02:09 Magnesium 2.4 mg/dL (1.7-2.3) H 03/25/22 05:00 Total Bilirubin 0.8 mg/dL (0.15-1.2) 03/30/22 05:34 AST 19 U/L (0-32) 03/30/22 05:34 ALT 61 U/L (0-33) H 03/30/22 05:34 Alkaline Phosphatase 73 U/L (35-105) 03/30/22 05:34 Troponin T Gen 5 ng/L 196 ng/L (0-10) H* 03/23/22 02:09 Troponin T Baseline 167 ng/L (0-10) H* 03/25/22 22:22 Troponin T 120 Minute 195.9 ng/L (0-10) H 03/26/22 01:50 Delta Troponin T 28.9 ABS# (0-10) H* 03/26/22 01:50 Troponin T Hi Sens 6Hr 233.2 ng/L (0-10) H 03/26/22 04:22 Troponin T Hi Sens 6Hr Delta 66.2 ng/L (0-12) H* 03/26/22 04:22 NT-Pro-B Natriuret Pep 86001 pg/mL (0-125) H 03/15/22 21:10 Total Protein 5.7 g/dL (6.6-8.7) L 03/30/22 05:34 Albumin 3.6 g/dL (3.5-5.2) 03/30/22 05:34 Globulin 2.1 g/dL (1.3-4.6) 03/30/22 05:34 Urine Color Colorless (Yellow) 03/17/22 11:35 Urine Appearance Sl hazy (CLEAR) A 03/17/22 11:35 Urine pH 5 (5-7) 03/17/22 11:35 Ur Specific [place] 1.010 (1.005-1.030) 03/17/22 11:35 Urine Protein Neg (Negative) 03/17/22 11:35 Urine Glucose (UA) Norm (Normal) 03/17/22 11:35 Urine Ketones Negative (Negative) 03/17/22 11:35 Urine Blood 3+ (Negative) H 03/17/22 11:35 Urine Nitrate Negative (Negative) 03/17/22 11:35 Urine Bilirubin Neg (Negative) 03/17/22 11:35 Urine Urobilinogen Norm mg/dL (Negative) 03/17/22 11:35 Ur Leukocyte Esterase Negative (Negative) 03/17/22 11:35 Urine RBC 15-25 /hpf (0-2) H 03/17/22 11:35 Urine WBC None /hpf (0-5) 03/17/22 11:35 Ur Squamous Epith Cells None /hpf (0-5) 03/17/22 11:35 Amorphous Sediment Not Reportable 03/17/22 11:35 Urine Bacteria Trace /hpf (NONE) 03/17/22 11:35 Hyaline Casts 0-4 /lpf H 03/17/22 11:35 Urine Mucus Trace /hpf 03/17/22 11:35 Ur Random Sodium 68 mmol/L 03/17/22 11:35 Urine Creatinine 21 mg/dL (28-217) L 03/17/22 11:35 Influenza Type A Ag positive (Negative) H 03/26/22 02:57 Influenza Type B Ag negative (Negative) 03/26/22 02:57 A&P Assessment and plan (1) CHF exacerbation: The heart failure seems to be getting compensated. Significant drop in the LV ejection fraction, compared to the previous echocardiogram. This is possibility related to the recent myocardial infarction. Since she is remaining stable, may continue on the current medications. (2) Atherosclerotic heart disease of [place] coronary artery with other forms of angina pectoris: Patient needs a repeat cardiac catheterization, to reevaluate the coronary status. However the patient has decided not to undergo any invasive procedures at this time. She seems understand implications. We will continue the medical management (3) Acute kidney injury: Persistent high BUN/creatinine ratio (4) ICD (implantable cardioverter-defibrillator), dual, in situ: The ICD function appears to be appropriate. We will do an ICD interrogation by the [employer] insurance follow up representative tomorrow (5) Wide-complex tachycardia: Since the patient has no recurrence of VT, may continue on the current medications. (6) Elevated liver enzymes: Almost returning back to baseline. Plan Other problems are as outlined before Continue on the current management. Restart Eliquis today ICD interrogation revealed elevated pacing threshold for the right ventricular lead, appears to be chronically elevated. Attestations Medical Necessity Statement*: Disposition as per the primary Coding Level of Care Code Acute Manager Research Development for Chg Fwd History Expanded Problem Focused Exam Expanded Problem Focused Medical Decision Making Moderate Complexity Diagnoses CHF exacerbation I50.9 Atherosclerotic heart disease of [place] coronary artery with other forms of angina pectoris I25.118 Acute kidney injury N17.9 ICD (implantable cardioverter-defibrillator), dual, in situ Z95.810 Wide-complex tachycardia R00.0 Elevated liver enzymes R74.8
[2022-03-30] MEDS: FUROsemide 40 mg Tablet 80 MG PO (14:33)
--- NOTE | 2022-03-30 17:43 | PM.PN ---
Subjective Subjective: No new complaints, feels better Medications: Reviewed: Yes Vitals/I&O/Wt Last Vital Signs Temp 98.1 F 03/30/22 16:00 Pulse 77 03/30/22 16:00 Resp 24 H 03/30/22 16:00 BP 128/82 03/30/22 16:00 Pulse Ox 97 03/30/22 16:00 O2 Del Method 03/30/22 09:20 O2 Flow Rate 2 03/30/22 09:20 FiO2 30 03/17/22 19:47 03/30/22 03/30/22 03/30/22 06:59 14:59 22:59 Intake Total 480 / 480 Output Total 1700 / 2620 800 / 800 Balance -1700 / -1700 480 / 480 -800 / -320 Weight last 48 hrs Weight 107.955 kg Physical Exam Narrative: Awake alert, no acute distress On 2 L nasal cannula neck neck supple 1+ edema bilaterally Urinary Catheter Management: Yu: Cath Placed During This Visit: yes Reason for Continuing Indwelling Catheter: Other Urinary Catheter Date of Insertion: 03/16/22 Urinary Catheter Time of Insertion: 20:45 Data 03/30/22 05:34 03/30/22 05:34 A&P Assessment and plan (1) Acute kidney injury: seen via telemedicine with assistance of RN at bedside (2) Hyponatremia: Plan 1. Hyponatremia, sodium improved- 136 today . I Status post 3% saline infusion..continue fluid restriction. Continue NaCl oral to 1 g TID. Continue low dose furosemide. 2. Acute kidney injury, urine output improved, creatinine 1.6 today, monitor 3. Decompensated heart failur: Lasix 40 mg p.o. twice daily 4. Chronic kidney disease: baseline Cr 1.5 - 1.6 mg/dL, small kidneys on renal us Attestations Medical Necessity Statement*: Disposition as per the primary Coding Level of Care Code Acute Human Resources Executive Assistant for Miguelina Lynch Diagnoses Acute kidney injury N17.9 Hyponatremia E87.1
[2022-03-30] MEDS: apixaban 5 mg Tablet PO (20:15)
[2022-03-31] VITALS (8 sets, daily range): BP systolic 116–139; BP diastolic 53–72; PULSE 70–83; RESP 17–21; TEMP 36.1–36.6; O2SAT 96–98
[2022-03-31] MEDS: ALPRAZolam 0.5 mg Tablet 0.25 MG PO (00:53)
[2022-03-31 05:42] LABS: Basophils % 0.1 %; Eosinophils % 0.3 %; Hemoglobin 9.6 g/dL (11.5-15.3); Lymphocytes # 2.2 10^3/uL (0.8-4.8); Lymphocytes % 17.2 %; Mean Corpuscular Hemoglobin 32.2 pg (28.0-34.0); Mean Corpuscular Volume 100.7 fl (81-99); Mean Platelet Volume 11.2 fL (7.4-10.4); Monocytes # 0.7 10^3/uL (0.2-0.9); Monocytes % 5.5 %; Neutrophils # 9.91 10^3/uL (1.8-7.7); Neutrophils % 75.8 %; Nucleated Red Blood Cells % 0 %; Platelet Count 188 10^3/cmm (130-400); Red Blood Count 2.98 10^6/uL (4.1-5.3); Red Cell Distribution Width 15.2 % (12.1-15.1); White Blood Count 13.1 10^3/uL (4.0-10.0)
[2022-03-31 06:14] LABS: Alanine Aminotransferase 53 U/L (0-33); Albumin Level 3.2 g/dL (3.5-5.2); Alkaline Phosphatase 83 U/L (35-105); Aspartate Amino Transferase 22 U/L (0-32); Blood Urea Nitrogen 60 mg/dL (8-23); Calcium 8.9 mg/dL (8.5-10.5); Carbon Dioxide 34 mmol/L (22-29); Globulin 2.7 g/dL (1.3-4.6); Glomerular Filtration Rate 32.2 mL/min (90-130); Glucose 145 mg/dL (65-115); Total Bilirubin 0.8 mg/dL (0.15-1.2); Total Protein 5.9 g/dL (6.6-8.7)
[2022-03-31 06:34] LABS: Anion Gap 12.5 (5-19); Chloride 89 mmol/L (98-107); Osmolality Calculated 293 mOsm/kg (285-295); Potassium 3.5 mmol/L (3.5-5.1); Sodium 132 mmol/L (136-145)
--- NOTE | 2022-03-31 08:47 | PM.DCS ---
Discharge Providers Date of Admission: 03/17/22 16:20 Date of Discharge: March 31, 2022 Attending Provider at Admission: Virgilio Santana MD Attending Provider at Discharge: Diane Bashir MD Primary Care Provider: Lois Sorto Diagnoses at Discharge Discharge Diagnosis (1) Acute kidney injury: Status: Acute (2) Hyponatremia: Status: Acute Reason for Visit Reason for Visit: SOB\Shoulder Pain Brief History: As per Dr. Santana, Amber White is a 67 year old female patient of Dr. Saldaña, history of systolic heart failure A. fib status post AICD placement takes Lasix 80 mg a day presented with shortness of breath.? At baseline she uses 2 L of oxygen. Patient is stating that she has been expressing her left-sided shoulder pain which started in last 72 hours, it is not associated with food intake, she has not noticed any chest pain, nausea, vomiting, fever she is also experiencing dry cough and bronchitis related symptoms, her PCP gave her azithromycin and Augmentin she only took 2 doses so far along prednisone.? He decided to come to the hospital for worsening of shortness of breath and generalized fatigue.? Patient is compliant with her medications stating that her normally blood pressures between 110s to 120 mmHg, in the ER she was diagnosed with CHF exacerbation she received 100 mg of Lasix however she has not made any urine at all, at home she takes 40 mg of Lasix No signs of chest pain, troponin now without significant delta BNP 17,000 Chest x-ray showing diffuse pulmonary congestion Hospital Course Hospital Course 65 year old female who has history of chronic atrial fibrillation, ischemic cardiomyopathy PCI to right coronary? mixed systolic diastolic congestive heart failure status post AICD placement(EF 30%) was brought in with chief complaint of worsening shortness of breath as well as cough going on for the last few days extremely bad yesterday, she was being treated as an outpatient by her PCP with azithromycin Augmentin, and prednisone for possible bronchitis.? Once admitted patient was managed for CHF exacerbation decompensated heart failure. She also had an NSTEMI but was unable to lie flat therefore could not go for angiogram at first. However later patient opted out of the procedure and wanted to be medically managed. Patient also was in chronic atrial fibrillation and is on Eliquis. During hospital stay patient was diagnosed with influenza A and completed 5 days of Tamiflu. She got scheduled DuoNebs but desonide inhalation every 12 hours and supportive care. Patient had ventricular tachycardia which was nonsustained. She was placed on amiodarone for that and will be discharged on that as well. Patient also got hyponatremic related to hypovolemia during hospital stay. Nephrology was also consulted. Patient is on salt tablets at this time and will be discharged. She did have worsening YUDI on CKD which was most likely due to cardiorenal syndrome due to decompensated heart failure. Patient's creatinine is back to baseline 1.6 range and stable at this time. Patient will be discharged home with home health. Initially SNF was offered and considered however patient does not want to go to a [facility] facility at this time and would like to go home. She states she has a lot of support at home and has family members that can take care of her and be with her. Today at time of discharge discussed with cardiology who recommended to send her on existing inpatient medications and have suggested no medication changes at this time. Nephrology is also cleared the patient for discharge. They recommend following up outpatient with nephrology. Patient will be given BMP scripts to follow-up on her sodium and kidney function. She will be discharged home in stable condition. Medication reconciliation was done by Dr. Stanley yesterday. Originally patient was supposed to go home yesterday however due to not having a family member able to pick her up she stayed till today. I reviewed all her medications with her. We will call [facility] pharmacy to ensure she has medications she can pick up attendant today as able close at 12. RN available at bedside. Patient has her portable oxygen tank at bedside ready to go home. Patient was given enough time to ask questions and they were answered according to her satisfaction. Physical Exam Narrative: General: sitting in in bed, good spirits today, seems symptomatically improved. Tachypneic but much easier to converse today. HEENT: PERRLA, pupils bilaterally equal and reactive, pallors not present Chest: Crackles on auscultation bilaterally CVS: S1-S2 regular, no murmurs, no tachycardia, no gallops, no rubs Abdomen: Soft, nontender, no organomegaly, bowel sounds present Neuro: No focal deficits, no facial deformity, AO x3, power 5/5 in all limbs Extremities improving pitting edema bilaterally Urinary Catheter Management: Yu: Cath Placed During This Visit: yes, but has since been removed by the nurse Reason for Continuing Indwelling Catheter: Other Urinary Catheter Date of Insertion: 03/16/22 Urinary Catheter Time of Insertion: 20:45 Date Urinary Catheter Removed: 03/30/22 Time Urinary Catheter Discontinued: 17:45 Discharge Data Studies Completed and Pending Completed Studies During Hospitalization Category Date Time Status XR abdomen 1V* [id number] Routine Exams 03/28/22 11:34 Completed XR chest 1V portable [id number] Routine Exams 03/16/22 22:32 Completed XR chest 1V portable [id number] Routine Exams 03/18/22 05:00 Completed XR chest 1V portable [id number] Routine Exams 03/21/22 08:02 Completed XR chest 1V portable [id number] Routine Exams 03/25/22 09:35 Completed XR chest 1V portable [id number] Stat Exams 03/15/22 20:03 Completed XR chest 1V portable [id number] Stat Exams 03/24/22 20:07 Completed XR shoulder RT 1V [id number] Routine Exams 03/16/22 10:00 Completed CV. echo complete* [id number] Routine Ultrasound 03/17/22 10:47 Completed US abdomen limited [id number] Routine Ultrasound 03/19/22 13:20 Completed US renal BI* [id number] Routine Ultrasound 03/17/22 10:54 Completed Radiology Impressions Shoulder X-Ray 03/16/22 10:00 IMPRESSION: No acute abnormality. Mild osteoarthritis of the acromioclavicular joint. Mild to moderate rotator cuff tendon arthropathy. Deltoid tendon calcification chronicity unknown, likely old posttraumatic. Less likely calcific tendinitis. Renal Ultrasound 03/17/22 10:54 IMPRESSION: 1. 2.6 x 2.2 x 2.0 cm simple cyst upper pole right kidney. 2. 2.8 x 2.4 x 2.8 cm simple cyst in the interpolar left kidney between the middle pole and upper pole. 3. Yu balloon within collapsed urinary bladder. 4. No hydronephrosis or medical renal disease. Abdomen Ultrasound 03/19/22 13:20 IMPRESSION: 1. Normal gallbladder. 2. Mild hepatic steatosis, liver is top normal size. 3. Simple RIGHT renal cyst, maximum diameter 2.2 cm. Chest X-Ray 03/25/22 09:35 IMPRESSION: Interstitial prominence, basilar airspace disease, and chronic granulomatous disease. Left pleural effusion. Abdomen X-Ray 03/28/22 11:34 IMPRESSION: Probable constipation otherwise unremarkable bowel gas pattern. Laboratory Results WBC 13.1 10^3/uL (4.0-10.0) H 03/31/22 05:25 RBC 2.98 10^6/uL (4.1-5.3) L 03/31/22 05:25 Hgb 9.6 g/dL (11.5-15.3) L 03/31/22 05:25 Hct 30.0 % (37.0-47.0) L 03/31/22 05:25 MCV 100.7 fl (81-99) H 03/31/22 05:25 MCH 32.2 pg (28.0-34.0) 03/31/22 05:25 MCHC 32.0 g/dL (30.0-36.0) 03/31/22 05:25 RDW 15.2 % (12.1-15.1) H 03/31/22 05:25 Plt Count 188 10^3/cmm (130-400) 03/31/22 05:25 MPV 11.2 fL (7.4-10.4) H 03/31/22 05:25 Neut % (Auto) 75.8 % 03/31/22 05:25 Lymph % (Auto) 17.2 % 03/31/22 05:25 [place] % (Auto) 5.5 % 03/31/22 05:25 Eos % (Auto) 0.3 % 03/31/22 05:25 Baso % (Auto) 0.1 % 03/31/22 05:25 Neut # (Auto) 9.91 10^3/uL (1.8-7.7) H 03/31/22 05:25 Lymph # (Auto) 2.2 10^3/uL (0.8-4.8) 03/31/22 05:25 [place] # (Auto) 0.7 10^3/uL (0.2-0.9) 03/31/22 05:25 Eos # (Auto) 0.0 10^3/uL (0.0-0.8) 03/31/22 05:25 Baso # (Auto) 0.0 10^3/uL (0.0-0.1) 03/31/22 05:25 Nucleated RBC % (auto) 0 % 03/31/22 05:25 Nucleated RBCs # 0.0 /100WBC 03/31/22 05:25 APTT 49.0 SECONDS (23.9-36.7) H 03/21/22 16:12 Specimen Type Arterial 03/17/22 08:26 Sample Site Brachial, right 03/17/22 08:26 ABG pH 7.30 (7.35-7.45) L 03/17/22 08:26 ABG pCO2 39.4 mmHg (35-45) 03/17/22 08:26 ABG pO2 130.0 mmHg (80.0-100.0) H 03/17/22 08:26 ABG HCO3 19.5 mmol/L (22-26) L 03/17/22 08:26 ABG O2 Saturation 99.2 03/17/22 08:26 ABG Base Excess -6.4 mmol/L (-2.0-2.0) L 03/17/22 08:26 Travis Test N/a 03/17/22 08:26 A-a O2 Gradient 4.8 mmHg (5-10) L 03/17/22 08:26 Hematocrit 36.4 % (37-47) L 03/17/22 08:26 Hgb O2 Saturation 97.8 % (95-100) 03/17/22 08:26 Carboxyhemoglobin 0.7 %THgb (0.4-20.1) 03/17/22 08:26 Methemoglobin 0.7 % (0.4-1.5) 03/17/22 08:26 Total Hemoglobin 11.9 g/dL (12-16) L 03/17/22 08:26 Sodium 124.0 mmol/L (131-143) L 03/17/22 08:26 Potassium 5.5 mmol/L (3.5-5.0) H 03/17/22 08:26 Glucose 178.0 mg/dL (70-115) H 03/17/22 08:26 Ionized Calcium 1.2 mmol/L (1.1-1.4) 03/17/22 08:26 O2 Delivery Device Cpap 03/17/22 08:26 FiO2 30.0 % 03/17/22 08:26 PEEP 10.0 cmH20 03/17/22 08:26 Design Engineering Specialist ID Amh 03/17/22 08:26 Sodium 132 mmol/L (136-145) L 03/31/22 05:25 Potassium 3.5 mmol/L (3.5-5.1) 03/31/22 05:25 Chloride 89 mmol/L (98-107) L 03/31/22 05:25 Carbon Dioxide 34 mmol/L (22-29) H 03/31/22 05:25 Anion Gap 12.5 (5-19) 03/31/22 05:25 BUN 60 mg/dL (8-23) H 03/31/22 05:25 Creatinine 1.6 mg/dL (0.5-0.9) H 03/31/22 05:25 GFR Calculation 32.2 mL/min (90-130) L 03/31/22 05:25 Glucose 145 mg/dL (65-115) H 03/31/22 05:25 POC Glucose 184 mg/dL (70-110) H 03/21/22 21:33 Calculated Osmolality 293 mOsm/kg (285-295) 03/31/22 05:25 Uric Acid 8.0 mg/dL (2.4-5.7) H 03/21/22 02:38 Calcium 8.9 mg/dL (8.5-10.5) 03/31/22 05:25 Phosphorus 3.9 mg/dL (2.5-4.5) 03/23/22 02:09 Magnesium 2.4 mg/dL (1.7-2.3) H 03/25/22 05:00 Total Bilirubin 0.8 mg/dL (0.15-1.2) 03/31/22 05:25 AST 22 U/L (0-32) 03/31/22 05:25 ALT 53 U/L (0-33) H 03/31/22 05:25 Alkaline Phosphatase 83 U/L (35-105) 03/31/22 05:25 Troponin T Gen 5 ng/L 196 ng/L (0-10) H* 03/23/22 02:09 Troponin T Baseline 167 ng/L (0-10) H* 03/25/22 22:22 Troponin T 120 Minute 195.9 ng/L (0-10) H 03/26/22 01:50 Delta Troponin T 28.9 ABS# (0-10) H* 03/26/22 01:50 Troponin T Hi Sens 6Hr 233.2 ng/L (0-10) H 03/26/22 04:22 Troponin T Hi Sens 6Hr Delta 66.2 ng/L (0-12) H* 03/26/22 04:22 NT-Pro-B Natriuret Pep 85951 pg/mL (0-125) H 03/15/22 21:10 Total Protein 5.9 g/dL (6.6-8.7) L 03/31/22 05:25 Albumin 3.2 g/dL (3.5-5.2) L 03/31/22 05:25 Globulin 2.7 g/dL (1.3-4.6) 03/31/22 05:25 Urine Color Colorless (Yellow) 03/17/22 11:35 Urine Appearance Sl hazy (CLEAR) A 03/17/22 11:35 Urine pH 5 (5-7) 03/17/22 11:35 Ur Specific [place] 1.010 (1.005-1.030) 03/17/22 11:35 Urine Protein Neg (Negative) 03/17/22 11:35 Urine Glucose (UA) Norm (Normal) 03/17/22 11:35 Urine Ketones Negative (Negative) 03/17/22 11:35 Urine Blood 3+ (Negative) H 03/17/22 11:35 Urine Nitrate Negative (Negative) 03/17/22 11:35 Urine Bilirubin Neg (Negative) 03/17/22 11:35 Urine Urobilinogen Norm mg/dL (Negative) 03/17/22 11:35 Ur Leukocyte Esterase Negative (Negative) 03/17/22 11:35 Urine RBC 15-25 /hpf (0-2) H 03/17/22 11:35 Urine WBC None /hpf (0-5) 03/17/22 11:35 Ur Squamous Epith Cells None /hpf (0-5) 03/17/22 11:35 Amorphous Sediment Not Reportable 03/17/22 11:35 Urine Bacteria Trace /hpf (NONE) 03/17/22 11:35 Hyaline Casts 0-4 /lpf H 03/17/22 11:35 Urine Mucus Trace /hpf 03/17/22 11:35 Ur Random Sodium 68 mmol/L 03/17/22 11:35 Urine Creatinine 21 mg/dL (28-217) L 03/17/22 11:35 Influenza Type A Ag positive (Negative) H 03/26/22 02:57 Influenza Type B Ag negative (Negative) 03/26/22 02:57 Vitals Last Vital Signs Temp 96.9 F L 03/31/22 07:34 Pulse 70 03/31/22 06:55 Resp 17 03/31/22 06:54 BP 139/72 03/31/22 06:54 Pulse Ox 97 03/31/22 06:54 O2 Del Method 03/31/22 04:00 O2 Flow Rate 2 03/31/22 04:00 FiO2 30 03/17/22 19:47 Discharge Plan Discharge Patient Disposition: Home Health Service Condition: Stable Prescriptions: New sodium chloride 1 gram Tablet 1 g PO BID 30 Days Qty: 60 0RF allopurinol 300 mg Tablet 300 mg PO DAILY 30 Days Qty: 0 0RF Continued alprazolam [Xanax] 0.25 mg tablet 0.125 mg PO BID PRN (Reason: anxiety) Qty: 10 0RF amiodarone 200 mg tablet 400 mg PO DAILY Incruse Ellipta 62.5 mcg/actuation blister with device 1 inh inhalation DAILY montelukast 10 mg tablet 10 mg PO DAILY potassium chloride 10 mEq tablet extended release 10 meq PO DAILY Qty: 90 3RF apixaban 5 mg tablet 5 mg PO BID Qty: 180 3RF levocetirizine 5 mg tablet 5 mg PO DAILY gabapentin 300 mg capsule 300 mg PO TID aspirin 81 mg Tablet,Chewable 81 mg PO DAILY multivitamin Tablet 1 tab PO DAILY ascorbic acid (vitamin C) [Vitamin C] 500 mg Tablet 500 mg PO DAILY magnesium oxide 250 mg magnesium Tablet 250 mg PO DAILY albuterol sulfate 2.5 mg /3 mL (0.083 %) Solution For Nebulization 2.5 mg INHALATION Q6H PRN (Reason: Shortness Of Breath) nitroglycerin [Nitrostat] 0.4 mg Tablet, Sublingual 0.4 mg SUBLINGUAL Q5M PRN (Reason: Chest Pain) albuterol sulfate [Ventolin HFA] 90 mcg/actuation HFA aerosol inhaler 1 - 2 puff INHALATION QID PRN (Reason: Shortness Of Breath) allopurinol 300 mg tablet 300 mg PO DAILY cyclobenzaprine 5 mg tablet 5 mg PO BEDTIME Fish Oil 60-90-500 mg Capsule 1 cap PO DAILY Changed furosemide 40 mg tablet 80 mg PO BID 30 Days Qty: 60 0RF Held rosuvastatin 40 mg tablet 40 mg PO DAILY Hold Instructions: Resume on 04/06/22. Discontinued metoprolol succinate 25 mg tablet extended release 24 hr 25 mg PO DAILY Entresto 24-26 mg tablet 1 tab PO BID prednisone 20 mg tablet See Rx Instructions PO .COMPLEX PRN (Reason: joint pain flare) Qty: 30 1RF Rx Instructions: take 1 tab daily for 5-7 days as needed for gout flare PO PRN; spironolactone 25 mg Tablet 25 mg PO DAILY azithromycin 250 mg tablet 250 mg PO DAILY amoxicillin-pot clavulanate 875-125 mg tablet 1 tab PO BID Discharge Orders: Discharge Order (Routine); Ordered 03/31/22 Ordered By: Diane Bashir Other Ambulatory Orders: Basic Metabolic Panel (Routine) Timeframe: 20220403 Facility: [facility] - Location: Lab - Main Lab Ordered By: Diane Bashir Basic Metabolic Panel (Routine) Timeframe: 20220410 Facility: [facility] - Location: Lab - Main Lab Ordered By: Diane Bashir DME: [employer] (Order) Location: None Selected Ordered By: Pearl Stanley Referrals: [facility] [place] [Outside] [facility] [place] [Outside] Lee Saldaña MD [Physician] - 1 month Hermila Medrano FNP [Nurse Practitioner] - 1 week Lois Sorto PA [Primary Care Provider] - 04/06/22 9:00 am Discharge Diet: Cardiac Discharge Activity: Increase activity as tolerated and Oxygen as instructed Patient Instructions: Opioid Safety Activity Restrictions/Additional Instructions: Please follow up with PCP and cardiology as directed. Home health has been setup for you. Please return to ER should you gain > 3 pounds in a day or > 5lbs in 3 days. Please weigh yourself daily. If you develop palpitations, shortness of breath, chest pain, abdominal pain or any other symptoms that are new or worsening from existing, please seek medical attention by returning to ER. Lastly, you have been placed on salt tablets, please recheck your labs to ensure sodium remains stable and follow up with your primary care doctor. Discharge Attestations Time Spent in Discharge Care*: greater than 30 min Status at Discharge: Cognitive status at discharge: cognitively intact, Behavioral status at discharge: cooperative, Quality Metrics Clinical Quality Measures [ No reported AMI, CVA or VTE this stay] Coding Level of Care Code Acute Chg FW DC note Diagnoses Acute kidney injury N17.9 Hyponatremia E87.1
--- NOTE | 2022-03-31 10:08 | PC.NURSE ---
Per federico Guillen to call in patient's amioderone, cyclbenzaprine, and nitro to pharmacy ([facility]) for one time refill. Patient was given instructions and education at discharge. Patient verbalized understanding. Patient was taken via wheelchair by graduate nurse to entrance where family was waiting. IV was removed without incident. Patient tolerated well. Spoke with exercise planner about bedside commode which was to be delivered to home.
== END 2022-03-31 10:12 | disposition home health service (06) | DRG 281 ==
LOC: ER 22:09 → MEDSURG 22:26 → ICU 03-17 08:44 → CSU 03-29 14:42
PROVIDERS: Emergency Medicine; Internal Medicine; Internal Medicine Cardiovascular Disease; Internal Medicine Nephrology; Student in an Organized Health Care Education/Training Program; Admitting Provider Internal Medicine; Emergency Provider Emergency Medicine; PCP Physician Assistant; Visit Provider Internal Medicine
DX: I13.0 Hypertensive heart and chronic kidney disease with heart failure and stage 1 through stage 4 chronic kidney disease, or unspecified chronic kidney disease (principal); I21.4 Non-ST elevation (NSTEMI) myocardial infarction; E87.1 Hypo-osmolality and hyponatremia; N17.9 Acute kidney failure, unspecified; I48.20 Chronic atrial fibrillation, unspecified; I47.20 Ventricular tachycardia, unspecified; J44.1 Chronic obstructive pulmonary disease with (acute) exacerbation; N18.9 Chronic kidney disease, unspecified; E86.1 Hypovolemia; Z95.0 Presence of cardiac pacemaker; Z99.81 Dependence on supplemental oxygen; M19.012 Primary osteoarthritis, left shoulder; I25.5 Ischemic cardiomyopathy; J10.1 Influenza due to other identified influenza virus with other respiratory manifestations; Z79.82 Long term (current) use of aspirin; Z79.51 Long term (current) use of inhaled steroids; I25.10 Atherosclerotic heart disease of native coronary artery without angina pectoris; Z95.5 Presence of coronary angioplasty implant and graft; F32.A Depression, unspecified; E78.2 Mixed hyperlipidemia; G47.33 Obstructive sleep apnea (adult) (pediatric); F17.210 Nicotine dependence, cigarettes, uncomplicated; M10.9 Gout, unspecified; K21.9 Gastro-esophageal reflux disease without esophagitis; I25.2 Old myocardial infarction; E87.5 Hyperkalemia; G89.29 Other chronic pain; M47.9 Spondylosis, unspecified
CPT/HCPCS: 12345; 36415; 36416; 36569; 36592; 36600; 51702; 71045; 73020; 74018; 76705; 76770; 80048; 80051; 80053; 81001; 82330; 82575; 82805; 82962; 83735; 83880; 84100; 84295; 84300; 84484; 84550; 85025; 85730; 87086; 87804; 93005; 93306; 94640; 94660; 94664; 96372; 96374; 96375; 96376; 97110; 97161; 97166; 97530; 97535; 99285; C1751; G0378; J0696; J1644; J1650; J1815; J1940; J2001; J2060; J2270; J2405; J2765; J2920; J2930; J3480; J3490; J7030; J7060; J7131; J7626; Q3014

== ENCOUNTER 2022-04-03 13:50 | Inpatient (IN) | payer MEDICARE, MEDICAID, SELFPAY ==
[2022-04-03] VITALS (25 sets, daily range): BP systolic 95–153; BP diastolic 56–90; PULSE 69–86; RESP 14–22; TEMP 36.6; O2SAT 95–100
--- NOTE | 2022-04-03 14:17 | XR_ITS ---
WS: [id number] Exam: XR chest 1V portable [id number] Date/Time of Exam: 04/03/2022 2:18 PM Reason For Exam: cough Comparison 03/25/2022. The heart is enlarged. There is pulmonary vascular congestion suggesting some degree of chronic CHF. Left basal pleural effusion noted. Plaque atelectasis in the right base. The mediastinum is normal in contour. A permanent cardiac pacer superimposes the left chest. Monitoring leads superimpose the romulo st. Bony elements are intact. XR/XR chest 1V portable [id number] IMPRESSION: 1. Cardiac enlargement with pulmonary vascular congestion suggesting some degre e of chronic CHF. Left pleural effusion noted.
--- NOTE | 2022-04-03 14:18 | ED_ITS ---
HPI - Weakness General: Chief complaint: Weakness Stated complaint: GENERALIZED WEAKNESS Time Seen by Provider: 04/03/22 13:52 Source: patient Mode of arrival: EMS Limitations: no limitations History of Present Illness: This patient returns to the emergency department because of global weakness cough and increasing shortness of breath. He was recently admitted to this facility and discharged on Saturday to home. He agreed to go home as she thought she was going to have family and friends helping her [id number] and that has not proven to be the case. She states that she is essentially confined to 1 room because of her inability to ambulate or do much because of her global weakness and feeling short of wind. She currently denies any nausea vomiting diarrhea, chest pain. She has Inc. taken to wearing her oxygen at home / rather than at night because of her symptoms. She states she has been having a nonproductive cough. Does have a history of CHF and has an AICD implanted. She also has a history of chronic obstructive pulmonary disease. MD Complaint: generalized weakness Context: recent illness Associated symptoms: Reports easy bruising; Denies chest pain, chills, fever(s), headache(s), nausea or vomiting Review of Systems Const: Reports: fatigue; Denies: fever(s) or chills Eyes: Denies: change in vision ENMT: Denies: throat pain, odynophagia, nasal discharge or nasal congestion Card: Reports: edema and swelling of feet/ankles; Denies: chest pain or palpitations Resp: Reports: dyspnea, non-productive cough and wheezing; Denies: stridor GI: Reports: constipation; Denies: abdominal pain, nausea or vomiting : Denies: flank pain, difficulty voiding or urinary frequency Musc: Reports: extremity swelling; Denies: neck pain, back pain or extremity pain Skin/Breast: Denies: rash or pruritus Neuro: Denies: headache(s) or numbness in extremities Mert/Lymph: Reports: easy bruising PFSH ED PFSH: Medical History AICD discharge AICD discharge Arthritis Asthma Atherosclerotic heart disease of [place] coronary artery with other forms of an caty pectoris Cardiac cath in April 2019 revealed No significant disease noted in the Left Main, LAD, Circumflex, or RCA coronary arteries. The right coronary artery was extensively stented with the patent stents. LVEDP was 13 mmHg. LV gram was not performed because of theabnormal kidney function Atherosclerotic heart disease of [place] coronary artery with unstable angina pectoris Back pain Cardiomyopathy Chronic episodic atrial fibrillation Pt has massive GI bleed and is not wanting to take oral anticoagulant Combined systolic and diastolic heart failure Ejection fraction 30%, grade 1/4 diastolic dysfunction COPD (chronic obstructive pulmonary disease) Coronary artery disease Degenerative joint disease (DJD) of lumbar spine Depression Dyslipidemia Fall Gout Gout, arthritis Gout, arthritis H/O coronary angiogram Showed patent stented segment of RCA with diffuse disease in other vessels High risk medication use Immunization counseling Ischemic cardiomyopathy with implantable cardioverter-defibrillator (ICD) Mixed hyperlipidemia Neuropathy Osteoarthritis Oxygen dependent Sleep apnea uses Bipap at night with 2 L o2 Sleep apnea syndrome Sleep apnea with mood disorder Smoker Smoking Tendinopathy of rotator cuff Ventricular tachycardia Surgical History AICD (automatic cardioverter/defibrillator) present ICD placement in 2012 with generator change by Dr. Boucher on 05/21/2018 History of appendectomy History of tubal ligation Hx of tonsillectomy Family History Father Hypertension CAD (coronary artery disease) Mother Diabetes CAD (coronary artery disease) Cancer Lung disease Brother No problems noted. Sister Cancer Dementia Diabetes Family/Other CAD (coronary artery disease) Cancer Diabetes Father No problems noted. Grandmother CAD (coronary artery disease) Cancer Lung disease Grandfather CAD (coronary artery disease) Other Stroke Denies family history of Rheumatoid arthritis Lupus Clotting disorder Chronic kidney disease (CKD) Suicide Anesthesia complication Bleeding disorder Social History Smoking and tobacco status: current every day smoker cigarettes Alcohol intake: never Lives independently: Yes Marital status: / Physical Exam 2 Narrative: EXAM NARRATIVE: Overweight female who makes good eye contact and answers questions in a goal- directed fashion without dyspnea. She has occasional episodes of cough. Const: COMMON NORMALS: patient oriented x3 and alert GENERAL APPEARANCE: cooperative NUTRITIONAL APPEARANCE: overweight HENMT: COMMON NORMALS: normocephalic, Normal nasal mucous membranes and turbinates present, moist oral mucous membranes and oropharynx normal HEAD & SCALP: normocephalic NOSE: Normal nasal mucous membranes and turbinates present Eye: COMMON NORMALS: Equal, round and reactive pupils present, conjunctivae normal, normal visual carranza by confrontation and fundi normal bilaterally CONJUNCTIVA: Yes conjunctivae normal PUPIL: Yes Equal, round and reactive pupils present DIRECT OPHTHALMOSCOPY: Yes fundi normal bilaterally Neck/C-Spine: COMMON NORMALS: full ROM, supple, no JVD and No carotid bruits Chest: COMMONS NORMALS: normal inspection of the chest and normal palpation of entire chest wall Resp: COMMON NORMALS: No use of accessory muscles EFFORT & INSPECTION: Yes able to speak in complete sentences AUSCULTATION: crackles and wheezes Cardio: COMMON NORMALS: no JVD, regular rate, No murmurs present (Cardio) and Peripheral pulses 2+ throughout RATE: regular rate PERIPHERAL PULSES: Peripheral pulses 2+ throughout GI: COMMON NORMALS: Soft to palpation, non-tender and no masses PALPATION: Yes Soft to palpation : COMMON NORMALS: Yes no CVA tenderness BLADDER/KIDNEY EXAM: Yes no CVA tenderness Back/Pelvis: COMMON NORMALS: no CVA tenderness and straight leg raise negative bilaterally Extremity: COMMON NORMALS: full ROM, capillary refill normal and no calf tenderness GENERAL: Yes edema (Bilateral pretibial) Neuro: COMMON NORMALS: patient oriented x3, moves all extremities, no focal motor deficits and no sensory deficits noted SENSORIUM/ORIENTATION: Yes alert CRANIAL NERVES: Yes CN normal except as noted SPEECH: speech normal Psych: COMMON NORMALS: mental status grossly normal Skin: COMMON NORMALS: no rashes or lesions noted, turgor normal and no jaundice GENERAL SKIN EXAM: no rashes or lesions noted and turgor normal Course Reevaluation(s): Reevaluation #1: Patient eventually needs to be in detention facility posthospitalization for continued recovery and rehabilitation to get back to her baseline. This cannot be done at this time of the day so therefore she will be placed back in observation so that manager social media can make those arrangements. Reevaluation #2: While awaiting admission upstairs the patient developed what appeared to be wide-complex tachycardia in the range of 140 to 150 bpm. She had no associated chest pain or shortness of breath. While preparations were made to provide more critical care and awaiting potential firing of her AICD she spontaneously converted back to a sinus rhythm. She is receiving magnesium as well as potassium replenishment. Time: 17:47 Vital Signs: Vital signs: Vital Signs Temperature 97.9 F 04/03/22 13:52 Pulse Rate 69 04/03/22 16:30 Respiratory Rate 18 04/03/22 16:30 Blood Pressure 116/90 04/03/22 16:00 Pulse Oximetry 99 04/03/22 16:30 Oxygen Delivery Me thod 04/03/22 14:27 Oxygen Flow Rate 3 04/03/22 14:27 MDM - Weakness Medical Decision Making Patient just recently discharged from the hospital to home care and has not been successful in that domicile and continuing her recovery. She continues to have generalized weakness and inability to care for self and has no home support at this time. She presented to the emergency department without history. On evaluation here she is found to have some remaining clinical findings suggestive of continued volume overload, hypokalemia and generalized debility. She is being placed in observation such that she can be placed in a detention facility for post hospitalization recovery and rehabilitation. Medical Records I reviewed the patient's medical records. Lab Data I reviewed the patient's lab results. 04/03/22 14:44 04/03/22 14:44 Radiology Impressions Chest X-Ray 04/03/22 14:17 IMPRESSION: 1. Cardiac enlargement with pulmonary vascular congestion suggesting some degree of chronic CHF. Left pleural effusion noted. Laboratory Results WBC 11.7 10^3/uL (4.0-10.0) H 04/03/22 14:44 RBC 3.05 10^6/uL (4.1-5.3) L 04/03/22 14:44 Hgb 9.8 g/dL (11.5-15.3) L 04/03/22 14:44 Hct 31.5 % (37.0-47.0) L 04/03/22 14:44 MCV 103.3 fl (81-99) H 04/03/22 14:44 MCH 32.1 pg (28.0-34.0) 04/03/22 14:44 MCHC 31.1 g/dL (30.0-36.0) 04/03/22 14:44 RDW 15.7 % (12.1-15.1) H 04/03/22 14:44 Plt Count 222 10^3/cmm (130-400) 04/03/22 14:44 MPV 11.1 fL (7.4-10.4) H 04/03/22 14:44 Neut % (Auto) 86.5 % 04/03/22 14:44 Lymph % (Auto) 8.4 % 04/03/22 14:44 [place] % (Auto) 4.3 % 04/03/22 14:44 Eos % (Auto) 0.2 % 04/03/22 14:44 Baso % (Auto) 0.1 % 04/03/22 14:44 Neut # (Auto) 10.15 10^3/uL (1.8-7.7) H 04/03/22 14:44 Lymph # (Auto) 1.0 10^3/uL (0.8-4.8) 04/03/22 14:44 [place]ift # (Auto) 0.5 10^3/uL (0.2-0.9) 04/03/22 14:44 Eos # (Auto) 0.0 10^3/uL (0.0-0.8) 04/03/22 14:44 Baso # (Auto) 0.0 10^3/uL (0.0-0.1) 04/03/22 14:44 Nucleated RBC % (auto) 0 % 04/03/22 14:44 Nucleated RBCs # 0.0 /100WBC 04/03/22 14:44 Sodium 136 mmol/L (136-145) 04/03/22 14:44 Potassium 3.0 mmol/L (3.5-5.1) L 04/03/22 14:44 Chloride 89 mmol/L (98-107) L 04/03/22 14:44 Carbon Dioxide 34 mmol/L (22-29) H 04/03/22 14:44 Anion Gap 16.0 (5-19) 04/03/22 14:44 BUN 43 mg/dL (8-23) H 04/03/22 14:44 Creatinine 1.3 mg/dL (0.5-0.9) H 04/03/22 14:44 GFR Calculation 40.9 mL/min (90-130) L 04/03/22 14:44 Glucose 149 mg/dL (65-115) H 04/03/22 14:44 Calculated Osmolality 296 mOsm/kg (285-295) H 04/03/22 14:44 Calcium 9.2 mg/dL (8.5-10.5) 04/03/22 14:44 Total Bilirubin 1.4 mg/dL (0.15-1.2) H 04/03/22 14:44 AST 22 U/L (0-32) 04/03/22 14:44 ALT 37 U/L (0-33) H 04/03/22 14:44 Alkaline Phosphatase 91 U/L (35-105) 04/03/22 14:44 Troponin T Gen 5 ng/L 80 ng/L (0-10) H 04/03/22 14:44 NT-Pro-B Natriuret Pep 7497 pg/mL (0-125) H 04/03/22 14:44 Total Protein 6.2 g/dL (6.6-8.7) L 04/03/22 14:44 Albumin 3.5 g/dL (3.5-5.2) 04/03/22 14:44 Globulin 2.7 g/dL (1.3-4.6) 04/03/22 14:44 Urine Color Yellow (Yellow) 04/03/22 14:59 Urine Appearance Cloudy (CLEAR) A 04/03/22 14:59 Urine pH 5 (5-7) 04/03/22 14:59 Ur Specific [place] 1.015 (1.005-1.030) 04/03/22 14:59 Urine Protein Neg (Negative) 04/03/22 14:59 Urine Glucose (UA) Norm (Normal) 04/03/22 14:59 Urine Ketones Negative (Negative) 04/03/22 14:59 Urine Blood Neg (Negative) 04/03/22 14:59 Urine Nitrate Negative (Negative) 04/03/22 14:59 Urine Bilirubin Neg (Negative) 04/03/22 14:59 Urine Urobilinogen Norm mg/dL (Negative) 04/03/22 14:59 Ur Leukocyte Esterase Negative (Negative) 04/03/22 14:59 Urine RBC 0-4 /hpf (0-2) H 04/03/22 14:59 Urine WBC 0-4 /hpf (0-5) H 04/03/22 14:59 Ur Squamous Epith Cells 25-40 /hpf (0-5) H 04/03/22 14:59 Amorphous Sediment Not Reportable 04/03/22 14:59 Urine Bacteria 1+ /hpf (NONE) H 04/03/22 14:59 Urine Mucus Trace /hpf 04/03/22 14:59 Urine Yeast 1+ /hpf H 04/03/22 14:59 EKG Data EKG 1: I personally reviewed and interpreted this EKG as follows: Interpretation: Patient had a paced rhythm of 69 bpm. Normal expected bundle branch block pattern from paced rhythm. No concordant or discordant ST segment changes noted in the precordial leads. This is unchanged from prior tracings within the syste m. Discharge Plan Discharge Patient Disposition: Placed in Observation Clinical Impression: Congestive heart failure, Hypokalemia, Generalized weakness, COPD (chronic obstructive pulmonary disease) Condition: Stable Prescriptions: No Action rosuvastatin 40 mg tablet 40 mg PO DAILY Hold Instructions: Resume on 04/06/22. alprazolam [Xanax] 0.25 mg tablet 0.125 mg PO BID PRN (Reason: anxiety) Qty: 10 0RF amiodarone 200 mg tablet 400 mg PO DAILY Incruse Ellipta 62.5 mcg/actuation blister with device 1 inh inhalation DAILY montelukast 10 mg tablet 10 mg PO DAILY potassium chloride 10 mEq tablet extended release 10 meq PO DAILY Qty: 90 3RF apixaban 5 mg tablet 5 mg PO BID Qty: 180 3RF levocetirizine 5 mg tablet 5 mg PO DAILY gabapentin 300 mg capsule 300 mg PO TID aspirin 81 mg Tablet,Chewable 81 mg PO DAILY multivitamin Tablet 1 tab PO DAILY ascorbic acid (vitamin C) [Vitamin C] 500 mg Tablet 500 mg PO DAILY magnesium oxide 250 mg magnesium Tablet 250 mg PO DAILY albuterol sulfate 2.5 mg /3 mL (0.083 %) Solution For Nebulization 2.5 mg INHALATION Q6H PRN (Reason: Shortness Of Breath) nitroglycerin [Nitrostat] 0.4 mg Tablet, Sublingual 0.4 mg SUBLINGUAL Q5M PRN (Reason: Chest Pain) albuterol sulfate [Ventolin HFA] 90 mcg/actuation HFA aerosol inhaler 1 - 2 puff INHALATION QID PRN (Reason: Shortness Of Breath) spironolactone 25 mg Tablet 25 mg PO DAILY metoprolol succinate 25 mg tablet extended release 24 hr 25 mg PO DAILY allopurinol 300 mg tablet 300 mg PO DAILY cyclobenzaprine 5 mg tablet 5 mg PO BEDTIME omega 5-lhd-ztu-fish oil [Fish Oil] 60-90-500 mg Capsule 1 cap PO DAILY sodium chloride 1 gram Tablet 1 g PO BID 30 Days Qty: 60 0RF furosemide 40 mg tablet 80 mg PO BID 30 Days Qty: 60 0RF Referrals: Lois Sorto PA [Primary Care Provider] - Coding Level of Care Code ED Handbag Frames Inspector for Chg Fwd Exam Comprehensive
--- NOTE | 2022-04-03 14:27 | ECG_ITS ---
[facility] Test Date: 2022-04-03 Pat Name: Amber White Department: Room: Gender: Female [employer]: : 1955 Requested By: Navin Lowe Order Number: [id number] Anabel MD: Ba Davis M.D. 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 [id number]
[2022-04-03] MEDS: ipratropium-albuterol 3 mL Neb INHALATION (14:33)
--- NOTE | 2022-04-03 14:36 | PC.NURSE ---
PT PLACED ON CONTINUOUS SPO2, NIBP, AND CM.
--- NOTE | 2022-04-03 15:01 | PC.PHAR ---
pt states she is unable to verify home medications. She states her family helps take care of her but they are unable to verify medications- meds verified by external med history.
[2022-04-03 15:23] LABS: Basophils % 0.1 %; Eosinophils % 0.2 %; Hematocrit 31.5 % (37.0-47.0); Hemoglobin 9.8 g/dL (11.5-15.3); Lymphocytes % 8.4 %; Mean Corpuscular HGB Conc 31.1 g/dL (30.0-36.0); Mean Corpuscular Hemoglobin 32.1 pg (28.0-34.0); Mean Corpuscular Volume 103.3 fl (81-99); Mean Platelet Volume 11.1 fL (7.4-10.4); Monocytes # 0.5 10^3/uL (0.2-0.9); Monocytes % 4.3 %; Neutrophils # 10.15 10^3/uL (1.8-7.7); Neutrophils % 86.5 %; Nucleated Red Blood Cells % 0 %; Platelet Count 222 10^3/cmm (130-400); Red Blood Count 3.05 10^6/uL (4.1-5.3); Red Cell Distribution Width 15.7 % (12.1-15.1); Troponin T (5th) Once 80 ng/L (0-10); White Blood Count 11.7 10^3/uL (4.0-10.0)
[2022-04-03 15:32] LABS: Alanine Aminotransferase 37 U/L (0-33); Albumin Level 3.5 g/dL (3.5-5.2); Alkaline Phosphatase 91 U/L (35-105); Aspartate Amino Transferase 22 U/L (0-32); Blood Urea Nitrogen 43 mg/dL (8-23); Calcium 9.2 mg/dL (8.5-10.5); Carbon Dioxide 34 mmol/L (22-29); Chloride 89 mmol/L (98-107); Globulin 2.7 g/dL (1.3-4.6); Glomerular Filtration Rate 40.9 mL/min (90-130); Glucose 149 mg/dL (65-115); NT Pro B Type Natriuretic Pept 7497 pg/mL (0-125); Osmolality Calculated 296 mOsm/kg (285-295); Sodium 136 mmol/L (136-145); Total Bilirubin 1.4 mg/dL (0.15-1.2); Total Protein 6.2 g/dL (6.6-8.7)
[2022-04-03 15:54] LABS: Add Urine Microscopic? YES; Bilirubin Urine Neg (Negative); Blood Urine Neg (Negative); Glucose Urine UA Norm (Normal); Ketones Urine Negative (Negative); Leukocyte Esterase Urine Negative (Negative); Nitrate Urine Negative (Negative); Protein Urine Neg (Negative); Specific Gravity, Urine 1.015 (1.005-1.030); Urine Appearance Cloudy (CLEAR); Urine Color Yellow (Yellow); Urobilinogen Urine Norm (Negative); pH Urine 5 (5-7)
[2022-04-03 15:55] LABS: RBC Urine 0-4 /hpf (0-2); WBC Urine 0-4 /hpf (0-5)
[2022-04-03 15:56] LABS: Bacteria Urine 1+ /hpf; Mucus Urine TRACE /hpf; Squamous Epithelial Cell Urine 25-40 /hpf (0-5)
[2022-04-03 15:57] LABS: Add Urine Culture? No
[2022-04-03] MEDS: potassium bicarb 25 mEq Tablet 50 MEQ PO (17:42)
[2022-04-03] MEDS: acetaminophen 325 mg Tablet 650 MG PO (17:42)
[2022-04-03] MEDS: FUROsemide 10 mg/mL SDV 4mL 40 MG IVP (17:43)
[2022-04-03] MEDS: magnesium sulfate premix 2 GM/50 ML PIGGYBACK IV (17:51)
--- NOTE | 2022-04-03 18:47 | PC.NURSE ---
REPORT GIVEN TO ANUM MARR IN CSU.
--- NOTE | 2022-04-03 19:04 | P.HP_ITS ---
Providers/Chief Complaint Admitting Physician: Diane Bashir MD Primary Care Provider: Lois Sorto Chief Complaint: GENERALIZED WEAKNESS History of Present Illness Amber White is a 67 year old female with extensive cardiac history, history of ischemic cardiomyopathy, chronic A. fib, PCI to right coronary mixed systolic diastolic CHF status post AICD placement EF is around 30% she was discharged on after management of congestive heart failure acute on chronic kidney disease she was offered SNF however she declined and wanted to go home. Patient is returning to the hospital stating that her family is working full- time and do not have enough time to take care of her and she would like to go to [facility] this time she is not sure whether she took all of her prescribed medication at home, she is very depressed and stating that now it does not matter which [facility] she would go to because she is giving up her freedom. At baseline she is using 3 to 4 L of oxygen. She is endorsing weight gain, dyspnea on exertion, constipation. No active chest pain fever nausea or vomiting. Review of Systems Const: Reports: body aches; Denies: fever(s) or chills Eyes: Denies: change in vision ENMT: Denies: throat pain Card: Reports: irregular heart rhythm, dyspnea on exertion and orthopnea; Denies: chest pain Resp: Reports: dyspnea GI: Denies: abdominal pain : Denies: flank pain Musc: Reports: back pain Skin/Breast: Denies: rash Neuro: Denies: headache(s) Psych: Reports: depression Endo: Denies: polyuria Mert/Lymph: Denies: easy bruising All/Imm: Denies: urticaria Medications/Allergies Home Medications Medication Instructions Recorded Confirmed Last Taken Type levocetirizine 5 mg tablet 5 mg PO DAILY 04/15/19 04/03/22 08/09/20 08:00 History ascorbic acid (vitamin C) 500 mg 500 mg PO DAILY 08/09/20 04/03/22 08/09/20 08:00 History tablet (Vitamin C) aspirin 81 mg chewable tablet 81 mg PO DAILY 08/09/20 04/03/22 08/09/20 08:00 History magnesium oxide 250 mg PO DAILY 08/09/20 04/03/22 08/09/20 08:00 History multivitamin 1 tab PO DAILY 08/09/20 04/03/22 08/09/20 08:00 History albuterol sulfate 2.5 mg/3 mL 2.5 mg inhalation Q6H PRN 08/16/20 04/03/22 Unknown History (0.083 %) solution for nebulization Shortness Of Breath albuterol sulfate 90 mcg/actuation 1 - 2 puff inhalation QID PRN 08/16/20 04/03/22 Unknown History aerosol inhaler (Ventolin HFA) Shortness Of Breath nitroglycerin 0.4 mg sublingual 0.4 mg sublingual Q5M PRN Chest 08/16/20 04/03/22 Unknown History tablet (Nitrostat) Pain alprazolam 0.25 mg tablet (Xanax) 0.125 mg PO BID PRN anxiety #10 09/21/20 1 06/04/21 Unknown Rx tabs gabapentin 300 mg capsule 300 mg PO TID 09/21/20 04/03/22 Unknown History rosuvastatin 40 mg tablet 40 mg PO DAILY 09/21/20 04/03/22 Unknown History amiodarone 200 mg tablet 400 mg PO DAILY 02/22/21 04/03/22 Unknown History montelukast 10 mg tablet 10 mg PO DAILY 08/24/21 04/03/22 Unknown History potassium chloride 10 mEq 10 meq PO DAILY #90 tabs 08/24/21 04/03/22 Unknown Rx tablet,extended release umeclidinium 62.5 mcg/actuation 1 inh inhalation DAILY 08/24/21 04/03/22 Unknown History blister powder for inhalation (Incruse Ellipta) apixaban 5 mg tablet 5 mg PO BID #180 tabs 10/11/21 04/03/22 Unknown Rx allopurinol 300 mg tablet 300 mg PO DAILY 03/16/22 04/03/22 Unknown History cyclobenzaprine 5 mg tablet 5 mg PO BEDTIME 03/16/22 04/03/22 Unknown History omega 1-iyt-gvx-fish oil 60 mg-90 1 cap PO DAILY 03/16/22 04/03/22 Unknown History mg-500 mg capsule (Fish Oil) furosemide 40 mg tablet 80 mg PO BID 30 days #60 tabs 03/30/22 04/03/22 Unknown Rx sodium chloride 1 gram tablet 1 g PO BID 30 days #60 tabs 03/30/22 04/03/22 Unknown Rx metoprolol succinate 25 mg 25 mg PO DAILY 04/03/22 04/03/22 Unknown History tablet,extended release 24 hr spironolactone 25 mg tablet 25 mg PO DAILY 04/03/22 04/03/22 Unknown History Allergies Allergy/AdvReac Type Severity Reaction Status Date / Time povidone-iodine Allergy Mild Unknown Verified 03/16/22 09:16 [From Betadine] PFSH Acute PFSH: Medical History AICD discharge AICD discharge Arthritis Asthma Atherosclerotic heart disease of [place] coronary artery with other forms of angina pectoris Cardiac cath in April 2019 revealed No significant disease noted in the Left Main, LAD, Circumflex, or RCA coronary arteries. The right coronary artery was extensively stented with the patent stents. LVEDP was 13 mmHg. LV gram was not performed because of th eabnormal kidney function Atherosclerotic heart disease of [place] coronary artery with unstable angina pectoris Back pain Cardiomyopathy Chronic episodic atrial fibrillation Pt has massive GI bleed and is not wanting to take oral anticoagulant Combined systolic and diastolic heart failure Ejection fraction 30%, grade 1/4 diastolic dysfunction COPD (chronic obstructive pulmonary disease) Coronary artery disease Degenerative joint disease (DJD) of lumbar spine Depression Dyslipidemia Fall Gout Gout, arthritis Gout, arthritis H/O coronary angiogram Showed patent stented segment of RCA with diffuse disease in other vessels High risk medication use Immunization counseling Ischemic cardiomyopathy with implantable cardioverter-defibrillator (ICD) Mixed hyperlipidemia Neuropathy Osteoarthritis Oxygen dependent Sleep apnea uses Bipap at night with 2 L o2 Sleep apnea syndrome Sleep apnea with mood disorder Smoker Smoking Tendinopathy of rotator cuff Ventricular tachycardia Surgical History AICD (automatic cardioverter/defibrillator) present ICD placement in 2012 with generator change by Dr. Boucher on 05/21/2018 History of appendectomy History of tubal ligation Hx of tonsillectomy Family History Father Hypertension CAD (coronary artery disease) Mother Diabetes CAD (coronary artery disease) Cancer Lung disease Brother No problems noted. Sister Cancer Dementia Diabetes Family/Other CAD (coronary artery disease) Cancer Diabetes Father No problems noted. Grandmother CAD (coronary artery disease) Cancer Lung disease Grandfather CAD (coronary artery disease) Other Stroke Denies family history of Rheumatoid arthritis Lupus Clotting disorder Chronic kidney disease (CKD) Suicide Anesthesia complication Bleeding disorder Social History Smoking and tobacco status: current every day smoker cigarettes Alcohol intake: never Lives independently: Yes Marital status: / Vitals/I&O/Wt Last Vital Signs Temp 97.9 F 04/03/22 13:52 Pulse 72 04/03/22 18:30 Resp 14 04/03/22 18:30 BP 142/75 04/03/22 18:15 Pulse Ox 98 04/03/22 18:15 O2 Del Method 04/03/22 14:27 O2 Flow Rate 3 04/03/22 14:27 Weight last 48 hrs Weight 108.862 kg Physical Exam Narrative: Pleasant cooperative female Currently is sitting in her bed Saturating well on 3 L nasal cannula A. fib RVR Patient has signs of fluid overload 3+ pitting edema of legs Abdomen distended nontender soft Awake and alert EOMI I She seems to be depressed Appropriate mood and affect No signs of cellulitis Data 04/03/22 14:44 04/03/22 14:44 A&P Assessment and plan (1) Congestive heart failure: (2) Hypokalemia: (3) Generalized weakness: (4) ICD (implantable cardioverter-defibrillator), dual, in situ: (5) Gout: (6) Chronic episodic atrial fibrillation: (7) Lumbar stenosis with neurogenic claudication: Plan Chronic CHF exacerbation Systolic CHF exacerbation, decompensated heart failure I would continue Lasix Replenish potassium for hypokalemia Check magnesium Patient seems to be depressed not happy about going to the [facility] but she does not have any other choice Continue AV socorro blocking agents along Eliquis Case management consultation for [facility] placement Oxygen requirement has not worsened uses 3 to 4 L at baseline Chronic kidney disease creatinine seems to be around baseline Hyponatremia improved Patient is full code stating that do not do chest compressions more than 10 minutes, she is okay with intubation and defibrillation if needed Continue diuretics, DuoNeb treatment Attestations Medical Necessity Statement*: Anticipating discharge to [facility] in next few days Anticipating finding placement for her within 48 hours Time Spent in Patient Care: 40 Coding Level of Care Code Acute Radio Time Buyer for Miguelina Lynch Diagnoses Congestive heart failure I50.9 Hypokalemia E87.6 Generalized weakness R53.1 ICD (implantable cardioverter-defibrillator), dual, in situ Z95.810 Gout M10.9 Chronic episodic atrial fibrillation I48.20 Lumbar stenosis with neurogenic claudication M48.062
--- NOTE | 2022-04-03 19:10 | PC.NURSE ---
PLACED BY RIGO MARR
--- NOTE | 2022-04-03 19:11 | PC.NURSE ---
REPORT GIVEN TO LONI MARR.
--- NOTE | 2022-04-03 19:11 | PC.NURSE ---
REPORT GIVEN TO LONI MARR.
[2022-04-03] MEDS: potassium chloride ER 20 mEq Tablet 40 MEQ PO (21:00)
[2022-04-03] MEDS: gabapentin 300 mg Capsule PO (21:00)
[2022-04-04] VITALS (12 sets, daily range): BP systolic 101–107; BP diastolic 51–69; PULSE 69–76; RESP 14–23; TEMP 36.6–36.7; O2SAT 94–98
[2022-04-04 02:43] LABS: Basophils % 0.1 %; Eosinophils % 0.2 %; Hematocrit 29.2 % (37.0-47.0); Hemoglobin 9.2 g/dL (11.5-15.3); Lymphocytes % 8.7 %; Mean Corpuscular HGB Conc 31.5 g/dL (30.0-36.0); Mean Corpuscular Hemoglobin 32.2 pg (28.0-34.0); Mean Corpuscular Volume 102.1 fl (81-99); Mean Platelet Volume 10.9 fL (7.4-10.4); Monocytes # 0.6 10^3/uL (0.2-0.9); Monocytes % 5.3 %; Neutrophils # 9.69 10^3/uL (1.8-7.7); Neutrophils % 85.3 %; Nucleated Red Blood Cells % 0 %; Platelet Count 208 10^3/cmm (130-400); Red Blood Count 2.86 10^6/uL (4.1-5.3); Red Cell Distribution Width 15.7 % (12.1-15.1); White Blood Count 11.4 10^3/uL (4.0-10.0)
--- NOTE | 2022-04-04 02:58 | PC.NURSE ---
Patient c/o belly cramping and constipation. Patient reported taking laxatives at home yesterday morning. Informed Dr Santana and received telephone order for one time dose of Miralax 17gm PO. RBVO
[2022-04-04] MEDS: polyethylene glycol 3350 Pkt 17 gm PO (03:07)
[2022-04-04 03:13] LABS: Anion Gap 8.7 (5-19); Blood Urea Nitrogen 45 mg/dL (8-23); Calcium 8.8 mg/dL (8.5-10.5); Carbon Dioxide 39 mmol/L (22-29); Chloride 87 mmol/L (98-107); Glomerular Filtration Rate 40.9 mL/min (90-130); Glucose 126 mg/dL (65-115); Magnesium 2.8 mg/dL (1.7-2.3); Osmolality Calculated 285 mOsm/kg (285-295); Potassium 3.7 mmol/L (3.5-5.1); Sodium 131 mmol/L (136-145)
[2022-04-04] MEDS: FUROsemide 10 mg/mL SDV 4mL 40 MG IVP (05:16)
[2022-04-04] MEDS: multivitamin therapeutic Tablet 1 TAB PO (08:52)
[2022-04-04] MEDS: apixaban 5 mg Tablet PO ×2 (08:52→18:04)
[2022-04-04] MEDS: amiodarone 200 mg Tablet 400 MG PO (08:52)
[2022-04-04] MEDS: aspirin 81 mg Chew Tablet PO (08:52)
[2022-04-04] MEDS: sodium chloride 1 gm Tablet PO ×2 (08:52→18:04)
[2022-04-04] MEDS: atorvastatin 40 mg Tablet 80 MG PO (08:52)
[2022-04-04] MEDS: omega-3 fatty acids 1,000 mg Capsule 1000 MG PO (08:52)
[2022-04-04] MEDS: spironolactone 25 mg Tablet PO (08:52)
[2022-04-04] MEDS: ascorbic acid 500 mg Tablet PO (08:53)
[2022-04-04] MEDS: montelukast sodium 10 mg Tablet PO (08:53)
[2022-04-04] MEDS: gabapentin 300 mg Capsule PO ×3 (08:53→20:05)
[2022-04-04] MEDS: metoprolol succinate ER (24 HR) 25 mg Tablet PO (08:53)
[2022-04-04] MEDS: cetirizine 10 mg Tablet PO (08:53)
--- NOTE | 2022-04-04 09:08 | XR_ITS ---
WS: [id number] Exam: XR KUB portable [id number] Date/Time of Exam: 04/04/2022 9:50 AM Reason For Exam: abdominal pain Comparison 03/28/2022. A small amount of scattered gas noted in both large and small bowel loops suggesting mild ileus. No s ign of joseph bowel obstruction at this time. No free air. Visualized organ margins are unremarkable. Advanced degenerative changes of the lumbar spine and levoscoliosis. XR/XR KUB portable [id number] IMPRESSION: 1. Findings suggest mild adynamic ileus. No sign of acute bowel obstruction or pneumoperitoneum.
--- NOTE | 2022-04-04 09:09 | XR_ITS ---
WS: [id number] Exam: XR chest 1V portable [id number] Date/Time of Exam: 04/04/2022 9:50 AM Reason For Exam: follow up Comparison 04/03/2022. There is cardiac enlargement with pulmonary vascular congestion suggesting CHF. Left basal pleural ef fusion noted. Increasing plaque atelectasis in the right lower lobe. A permanent cardiac pacer seen o jenifer the left chest. The mediastinum and osseous thorax are unremarkable. Monitoring leads superimpose the chest. XR/XR chest 1V portable [id number] IMPRESSION: 1. Cardiac enlargement with signs of congestive heart failure showing little ch rupesh since the prior study. 2. Increasing plaque atelectasis in the right lower lobe.
[2022-04-04 09:28] LABS: ABG PH Result 7.46 (7.35-7.45); Alveolar-Arterial Oxygen Gradi 3.4 mmHg (5-10); Base Excess ABG 11.5 mmol/L (-2.0-2.0); Blood Gas Allen Test Pos; Blood Gas Operator Identificat WALCI; Blood Gas Sample Site Radial, right; Blood Gas Sample Type Arterial; Carboxyhemoglobin 1.8 %THgb (0.4-20.1); HCO3 ABG 36.8 mmol/L (22-26); Ionized Calcium Level - ABG 1.1 mmol/L (1.1-1.4); Methemoglobin 0.8 % (0.4-1.5); Oxygen Device NC; Oxygen Saturation ABG 93.5; PO2 ABG 61.6 mmHg (80.0-100.0); Potassium Level - ABG 3.6 mmol/L (3.5-5.0); Total Hemoglobin 9.5 g/dL (12-16)
[2022-04-04] MEDS: allopurinol 300 mg Tablet PO (10:14)
[2022-04-04] MEDS: ALPRAZolam 0.5 mg Tablet 0.125 MG PO ×2 (10:22→20:05)
--- NOTE | 2022-04-04 12:40 | PM.PN ---
Subjective Subjective: Seen this AM. Pt states she has not had a BM in 2 weeks and feels bloated Also wheezing says her family did not show up and she had no help at home Home health states that patient was found soiled in urine at home on her chair. She did not take her medications as directed as well. She required more assistance. Patient has no help at home from anybody. Vitals/I&O/Wt Last Vital Signs Temp 97.9 F 04/03/22 13:52 Pulse 73 04/04/22 09:16 Resp 20 H 04/04/22 09:16 BP 106/69 04/04/22 09:16 Pulse Ox 97 04/04/22 09:16 O2 Del Method 04/04/22 09:16 O2 Flow Rate 2 04/04/22 09:16 04/03/22 04/04/22 04/04/22 22:59 06:59 14:59 Intake Total 410 / 410 50 / 50 Output Total 1300 / 1300 Balance 410 / 410 -1300 / -890 50 / 50 Weight last 48 hrs Weight 108.862 kg Physical Exam Narrative: Pleasant cooperative female Currently is sitting in her bed Saturating well on 2 L nasal cannula A. fib RVR Appears fluid overloaded 3+ pitting edema of leg Awake and alert EOMI I She seems to be depressed Appropriate mood and affect No signs of cellulitis Hypoactive bowel sounds, mildly tender to palpation no guarding, distended and somewhat soft. Urinary Catheter Management: Yu: Cath Placed During This Visit: yes Reason for Continuing Indwelling Catheter: Acute Urinary Retention or Obstruction Urinary Catheter Date of Insertion: 04/03/22 Urinary Catheter Time of Insertion: 18:00 Data 04/04/22 02:23 04/04/22 02:23 A&P Assessment and plan (1) Congestive heart failure: (2) Hypokalemia: (3) Generalized weakness: (4) ICD (implantable cardioverter-defibrillator), dual, in situ: (5) Gout: (6) Chronic episodic atrial fibrillation: (7) Lumbar stenosis with neurogenic claudication: Plan Acute on chronic systolic CHF CKD A. fib with RVR History of COPD Gout GERD Status post AICD placement Chronic hyponatremia Ileus ? Continue replete electrolytes as needed ? Continue Eliquis, metoprolol and all home medications. ? Clear liquid diet. Patient has an ileus. She does not want any laxatives. Bowel sounds are very hypoactive. Abdomen slightly tender to palpation. I will check CT abdomen -We will need placement in long term. -Continue Lasix 40 IV twice daily -Continue Yu catheter for accurate output. -DuoNeb every 4 hours as needed ? Continue amiodarone, aspirin, gabapentin, metoprolol, sodium tablets, spironolactone Patient is full code stating that do not do chest compressions more than 10 minutes, she is okay with intubation and defibrillation if needed Continue diuretics, DuoNeb treatment Attestations Medical Necessity Statement*: Patient to cross greater than 2 midnight stay for management of acute on chronic systolic CHF and to set up placement for long term. Patient also has an ileus Coding Level of Care Code Acute Video Production Intern for [facility] Fwd Diagnoses Congestive heart failure I50.9 Hypokalemia E87.6 Generalized weakness R53.1 ICD (implantable cardioverter-defibrillator), dual, in situ Z95.810 Gout M10.9 Chronic episodic atrial fibrillation I48.20 Lumbar stenosis with neurogenic claudication M48.062
--- NOTE | 2022-04-04 12:50 | CT_ITS ---
WS: [id number] CT ABDOMEN AND PELVIS NONCONTRAST HISTORY: r/o bowel obstruction TECHNIQUE: Imaging performed through the abdomen and pelvis. Coronal and sagittal reformats are submi tted. All CT scans at [facility] use at least one of these dose optimization techniques: auto mated exposure control; mA and/or kV adjustment per patient size (includes targeted exams where dose is matched to clinical indication); or iterative reconstruction. DLP: 1222.77 mGy.cm COMPARISON: Prior abdomen radiograph 04/04/2022 Lower thorax: Marked enlargement of the cardiac chambers. Bilateral lower lobe opacifications and raz undglass attenuation. No effusion. Air bronchograms and consolidation RIGHT lung base consistent with atelectasis. Liver: Normal size liver. No mass or bile duct dilatation. Gallbladder: Mildly distended gallbladder with increased density. Probably related to sludge or vicar ious excretion from a prior contrast injection. No adjacent inflammation. Pancreas: Normal size and attenuation. Normal pancreatic duct. No pancreatitis or mass. Spleen: Normal. Adrenal glands: Normal. No mass. Right kidney: 2.2 cm low-attenuation mass upper pole probably a cyst. Mild atrophy. No obstruction. Left kidney: 2.2 cm low-attenuation mass mid kidney is probably a cyst also. No obstruction. Aorta: Mild atherosclerosis abdominal aorta with no aneurysm. No free fluid, intraperitoneal air or significant lymphadenopathy. GI tract: Mild fluid distention of the stomach. No significant small bowel obstruction. Diffuse const ipation and mild colonic dilatation. No pneumatosis. The appendix is not definitely identified. Elizabeth cral soft tissue thickening and mild stranding in the meso rectal fat. Abdominal wall: Small injection nodule. Pelvis: Air in the urinary bladder. There is also Yu catheter present. No adenopathy. Osseous structures: Advanced thoracolumbar scoliosis. CT/CT abdomen pelvis wo con [id number] IMPRESSION: 1. No significant ileus or GI tract obstruction. 2. Extensive fecal retention. 3. Presacral soft tissue thickening and mild inflammatory changes surrounding the rectosigmoid region. Probably from proctitis. 4. Yu catheter present in the urinary bladder. There is also air in the uri nary bladder, probably from the catheter insertion. 5. Marked cardiomegaly. 6. Consolidations and groundglass attenuation at the lung bases. RIGHT lower l obe atelectasis. Groundglass attenuation may be edema or hemorrhage.
[2022-04-04] MEDS: lactulose oral liq 20 gm/30 mL UDC PO (15:40)
[2022-04-04] MEDS: FUROsemide 10 mg/mL SDV 10mL 80 MG IVP (15:40)
--- NOTE | 2022-04-04 19:30 | PC.NURSE ---
Patient screaming in pain from her bowels. Stating bowel are cramping and spasming . Informed Dr Santana and waiting for orders at this time.
[2022-04-04] MEDS: morphine 4 mg/mL SDV 1 mL 2 MG IVP (20:04)
[2022-04-05] VITALS (15 sets, daily range): BP systolic 94–102; BP diastolic 56–75; PULSE 65–104; RESP 16–23; TEMP 36.6–36.9; O2SAT 92–98
[2022-04-05] MEDS: FUROsemide 10 mg/mL SDV 10mL 80 MG IVP (02:11)
[2022-04-05] MEDS: ipratropium-albuterol 3 mL Neb INHALATION ×2 (05:32→13:43)
[2022-04-05 05:43] LABS: Eosinophils % 0.2 %; Hematocrit 27.7 % (37.0-47.0); Hemoglobin 8.6 g/dL (11.5-15.3); Lymphocytes # 1.1 10^3/uL (0.8-4.8); Lymphocytes % 12.2 %; Mean Corpuscular Hemoglobin 32.1 pg (28.0-34.0); Mean Corpuscular Volume 103.4 fl (81-99); Mean Platelet Volume 10.7 fL (7.4-10.4); Monocytes # 0.4 10^3/uL (0.2-0.9); Monocytes % 4.4 %; Neutrophils # 7.14 10^3/uL (1.8-7.7); Neutrophils % 82.6 %; Nucleated Red Blood Cells % 0 %; Platelet Count 195 10^3/cmm (130-400); Red Blood Count 2.68 10^6/uL (4.1-5.3); Red Cell Distribution Width 15.9 % (12.1-15.1); White Blood Count 8.6 10^3/uL (4.0-10.0)
[2022-04-05 06:08] LABS: Anion Gap 12.3 (5-19); Blood Urea Nitrogen 47 mg/dL (8-23); Calcium 8.6 mg/dL (8.5-10.5); Carbon Dioxide 37 mmol/L (22-29); Chloride 90 mmol/L (98-107); Glomerular Filtration Rate 44.8 mL/min (90-130); Glucose 142 mg/dL (65-115); Osmolality Calculated 297 mOsm/kg (285-295); Potassium 3.3 mmol/L (3.5-5.1); Sodium 136 mmol/L (136-145)
[2022-04-05] MEDS: gabapentin 300 mg Capsule PO ×3 (09:04→21:13)
[2022-04-05] MEDS: cetirizine 10 mg Tablet PO (09:05)
[2022-04-05] MEDS: montelukast sodium 10 mg Tablet PO (09:05)
[2022-04-05] MEDS: ascorbic acid 500 mg Tablet PO (09:05)
[2022-04-05] MEDS: omega-3 fatty acids 1,000 mg Capsule 1000 MG PO (09:05)
[2022-04-05] MEDS: apixaban 5 mg Tablet PO ×2 (09:05→17:33)
[2022-04-05] MEDS: atorvastatin 40 mg Tablet 80 MG PO (09:05)
[2022-04-05] MEDS: spironolactone 25 mg Tablet PO (09:05)
[2022-04-05] MEDS: potassium chloride ER 20 mEq Tablet 40 MEQ PO (09:05)
[2022-04-05] MEDS: aspirin 81 mg Chew Tablet PO (09:05)
[2022-04-05] MEDS: sodium chloride 1 gm Tablet PO ×2 (09:05→17:33)
[2022-04-05] MEDS: allopurinol 300 mg Tablet PO (09:06)
[2022-04-05] MEDS: metoprolol succinate ER (24 HR) 25 mg Tablet PO (09:06)
[2022-04-05] MEDS: amiodarone 200 mg Tablet 400 MG PO (09:06)
[2022-04-05] MEDS: multivitamin therapeutic Tablet 1 TAB PO (09:06)
[2022-04-05] MEDS: polyethylene glycol 3350 Pkt 17 gm PO (09:07)
--- NOTE | 2022-04-05 09:13 | XR_ITS ---
WS: [id number] Exam: XR KUB portable [id number] Date/Time of Exam: 04/05/2022 9:24 AM Reason For Exam: abdominal pain Comparison 04/04/2022. Mild adynamic ileus noted. No sign of joseph bowel obstruction or free air. No sign of organ enlargeme nt. Advanced degenerative changes of the lumbar spine and levoscoliosis. XR/XR KUB portable [id number] IMPRESSION: 1. Mild ileus unchanged. 2. No acute abdominal process demonstrated at this time
--- NOTE | 2022-04-05 12:12 | PM.PN ---
Subjective Subjective: seen this morning pt appears very happy and says she feels better she had a large BM as well. says she is finally better. breathing has improved as well. Vitals/I&O/Wt Last Vital Signs Temp 97.8 F 04/05/22 11:28 Pulse 104 H 04/05/22 11:36 Resp 18 04/05/22 11:28 BP 96/56 04/05/22 11:28 Pulse Ox 96 04/05/22 11:28 O2 Del Method 04/05/22 11:28 O2 Flow Rate 2 04/05/22 11:28 04/04/22 04/05/22 04/05/22 22:59 06:59 14:59 Intake Total 480 / 530 236 / 236 Output Total 1000 / 1000 575 / 1575 550 / 550 Balance -520 / -470 -575 / -1045 -314 / -314 Weight last 48 hrs Weight 108.862 kg Physical Exam Narrative: Pleasant cooperative female Currently is sitting in her bed Saturating well on 2 L nasal cannula irregularly irregular 1-2+ pitting edema b/l LE Awake and alert EOMI I Very happy appearing today Appropriate mood and affect No signs of cellulitis normoactive bowel sounds, mildy tender but no guarding (she attributes this to having BM) Urinary Catheter Management: Yu: Cath Placed During This Visit: yes Reason for Continuing Indwelling Catheter: Acute Urinary Retention or Obstruction Urinary Catheter Date of Insertion: 04/03/22 Urinary Catheter Time of Insertion: 18:00 Data 04/05/22 05:27 04/05/22 05:27 A&P Assessment and plan (1) Congestive heart failure: (2) Hypokalemia: (3) Generalized weakness: (4) ICD (implantable cardioverter-defibrillator), dual, in situ: (5) Gout: (6) Chronic episodic atrial fibrillation: (7) Lumbar stenosis with neurogenic claudication: Plan Acute on chronic systolic CHF CKD A. fib with RVR History of COPD Gout GERD Status post AICD placement Chronic hyponatremia Ileus ? Continue replete electrolytes as needed ? Continue Eliquis, metoprolol and all home medications. ? Clear liquid diet. CT abdomen reviewed, no obstruction. Mild proctitis present. Stop lactulose. continue miralax. -We will need placement in senior living. -Continue Lasix 40 IV twice daily -Continue Yu catheter for accurate output. -DuoNeb every 4 hours as needed ? Continue amiodarone, aspirin, gabapentin, metoprolol, sodium tablets, spironolactone - Medically ready for discharge. pending placement Patient is full code stating that do not do chest compressions more than 10 minutes, she is okay with intubation and defibrillation if needed Continue diuretics, DuoNeb treatment Attestations Medical Necessity Statement*: Patient to cross greater than 2 midnight stay for management of acute on chronic systolic CHF and to set up placement for senior living. PENDING PLACEMENT Coding Level of Care Code Acute Web Services Architect for g Fwd Diagnoses Congestive heart failure I50.9 Hypokalemia E87.6 Generalized weakness R53.1 ICD (implantable cardioverter-defibrillator), dual, in situ Z95.810 Gout M10.9 Chronic episodic atrial fibrillation I48.20 Lumbar stenosis with neurogenic claudication M48.062
[2022-04-05] MEDS: ALPRAZolam 0.5 mg Tablet 0.125 MG PO (21:22)
[2022-04-05] MEDS: albuterol 2.5 mg/3 mL Neb INHALATION (21:50)
[2022-04-06 00:06] VITALS: BP 100/58; PULSE 70; RESP 18; TEMP 36.8; O2SAT 92
[2022-04-06] MEDS: FUROsemide 10 mg/mL SDV 10mL 80 MG IVP (03:43)
[2022-04-06 04:00] VITALS: BP 103/61; PULSE 70; RESP 22; TEMP 37.1; O2SAT 98
[2022-04-06] MEDS: acetaminophen 500 mg Tablet PO (04:40)
[2022-04-06 06:00] VITALS: PULSE 70
[2022-04-06] MEDS: ipratropium-albuterol 3 mL Neb INHALATION (07:32)
[2022-04-06 07:33] VITALS: PULSE 70; RESP 18; O2SAT 97
[2022-04-06 07:57] VITALS: BP 97/59; PULSE 70; RESP 16; O2SAT 90
--- NOTE | 2022-04-06 08:12 | PM.DCS ---
Discharge Providers Date of Admission: 04/03/22 18:03 Date of Discharge: April 06, 2022 Attending Provider at Admission: Diane Bashir MD Attending Provider at Discharge: Diane Bashir MD Primary Care Provider: Lois Sorto Diagnoses at Discharge Discharge Diagnosis (1) Congestive heart failure: Status: Acute (2) Hypokalemia: Status: Acute (3) Generalized weakness: Status: Acute (4) ICD (implantable cardioverter-defibrillator), dual, in situ: Status: Acute (5) Gout: Status: Acute (6) Chronic episodic atrial fibrillation: Status: Acute Permanent problem details: Pt has massive GI bleed and is not wanting to take oral anticoagulant (7) Lumbar stenosis with neurogenic claudication: Status: Acute Reason for Visit Reason for Visit: GENERALIZED WEAKNESS Brief History: Amber White is a 67 year old female with extensive cardiac history, history of ischemic cardiomyopathy, chronic A. fib, PCI to right coronary mixed systolic diastolic CHF status post AICD placement EF is around 30% she was discharged on after management of congestive heart failure acute on chronic kidney disease she was offered SNF however she declined and wanted to go home.? Patient is returning to the hospital stating that her family is working full-time and do not have enough time to take care of her and she would like to go to longterm this time she is not sure whether she took all of her prescribed medication at home, she is very depressed and stating that now it does not matter which longterm she would go to because she is giving up her freedom.? At baseline she is using 3 to 4 L of oxygen.? She is endorsing weight gain, dyspnea on exertion, constipation.? No active chest pain fever nausea or vomiting. Hospital Course Hospital Course Patient was recently discharged from the hospital on 03/31/2022. Patient had a prolonged hospital stay. Please refer to previous discharge summary. Patient returned to the hospital stating that she did not have help at home and wanted to go to a fci facility. Her family was supposed to be helping her however they left after dropping her home. She also did not take her medications as directed. Patient was found soiled sitting on a chair. She was brought to the hospital via EMS when home health nurse called for the ambulance. Upon admission she did appear fluid overloaded. During hospital stay she was given her home medications as previously prescribed. Patient also was constipated and had significant fecal retention. She was given lactulose and MiraLAX after which she was able to have good bowel movements. Patient said that she wanted to remain on a clear liquid diet and did not want to advance yet as she felt later. She has been started on GI soft. I recommend she stay on GI soft for a few days and then she can transition to regular thereafter. intermediate placement has been set up and she will be discharged to longterm in stable condition. CT abdomen was also done which did not show any bowel obstruction. There is very mild proctitis present due to bowel movements. No blood in stool. Patient was given Desitin rash cream. She said she felt better and appeared energetic and happy. Lasix decreased to 60 bid. Physical Exam Narrative: Pleasant cooperative female Currently is sitting in her bed Saturating well on 2 L nasal cannula irregularly irregular 1-2+ pitting edema b/l LE, chronic Awake and alert EOMI I Very happy appearing today Appropriate mood and affect No signs of cellulitis normoactive bowel sounds,non tender, Urinary Catheter Management: Yu: Cath Placed During This Visit: yes Reason for Continuing Indwelling Catheter: Accurate Measurement of Urinary Output in Critically Ill Patients Urinary Catheter Date of Insertion: 04/03/22 Urinary Catheter Time of Insertion: 18:00 Discharge Data Studies Completed and Pending Completed Studies During Hospitalization Category Date Time Status CT abdomen pelvis wo con [id number] Urgent Cat Scan 04/04/22 12:50 Completed XR KUB portable [id number] Routine Exams 04/04/22 09:08 Completed XR KUB portable [id number] Routine Exams 04/05/22 09:13 Completed XR chest 1V portable [id number] Routine Exams 04/04/22 09:09 Completed XR chest 1V portable [id number] Stat Exams 04/03/22 14:17 Completed Pending at discharge Category Date Time Status Basic Metabolic Panel Routine Lab 04/06/22 04:00 Ordered COVID [SARS Covid-2 Antigen] Routine Lab 04/06/22 07:59 Uncollected Radiology Impressions Chest X-Ray 04/04/22 09:09 IMPRESSION: 1. Cardiac enlargement with signs of congestive heart failure showing little change since the prior study. 2. Increasing plaque atelectasis in the right lower lobe. Abdomen/Pelvis CT 04/04/22 12:50 IMPRESSION: 1. No significant ileus or GI tract obstruction. 2. Extensive fecal retention. 3. Presacral soft tissue thickening and mild inflammatory changes surrounding the rectosigmoid region. Probably from proctitis. 4. Yu catheter present in the urinary bladder. There is also air in the urinary bladder, probably from the catheter insertion. 5. Marked cardiomegaly. 6. Consolidations and groundglass attenuation at the lung bases. RIGHT lower lobe atelectasis. Groundglass attenuation may be edema or hemorrhage. KUB X-Ray 04/05/22 09:13 IMPRESSION: 1. Mild ileus unchanged. 2. No acute abdominal process demonstrated at this time Laboratory Results WBC 8.6 10^3/uL (4.0-10.0) 04/05/22 05:27 RBC 2.68 10^6/uL (4.1-5.3) L 04/05/22 05:27 Hgb 8.6 g/dL (11.5-15.3) L 04/05/22 05:27 Hct 27.7 % (37.0-47.0) L 04/05/22 05:27 MCV 103.4 fl (81-99) H 04/05/22 05:27 MCH 32.1 pg (28.0-34.0) 04/05/22 05:27 MCHC 31.0 g/dL (30.0-36.0) 04/05/22 05:27 RDW 15.9 % (12.1-15.1) H 04/05/22 05:27 Plt Count 195 10^3/cmm (130-400) 04/05/22 05:27 MPV 10.7 fL (7.4-10.4) H 04/05/22 05:27 Neut % (Auto) 82.6 % 04/05/22 05:27 Lymph % (Auto) 12.2 % 04/05/22 05:27 [place] % (Auto) 4.4 % 04/05/22 05:27 Eos % (Auto) 0.2 % 04/05/22 05:27 Baso % (Auto) 0.0 % 04/05/22 05:27 Neut # (Auto) 7.14 10^3/uL (1.8-7.7) 04/05/22 05:27 Lymph # (Auto) 1.1 10^3/uL (0.8-4.8) 04/05/22 05:27 [place] # (Auto) 0.4 10^3/uL (0.2-0.9) 04/05/22 05:27 Eos # (Auto) 0.0 10^3/uL (0.0-0.8) 04/05/22 05:27 Baso # (Auto) 0.0 10^3/uL (0.0-0.1) 04/05/22 05:27 Nucleated RBC % (auto) 0 % 04/05/22 05:27 Nucleated RBCs # 0.0 /100WBC 04/05/22 05:27 Specimen Type Arterial 04/04/22 09:17 Sample Site Radial, right 04/04/22 09:17 ABG pH 7.46 (7.35-7.45) H 04/04/22 09:17 ABG pCO2 52.0 mmHg (35-45) H 04/04/22 09:17 ABG pO2 61.6 mmHg (80.0-100.0) L 04/04/22 09:17 ABG HCO3 36.8 mmol/L (22-26) H 04/04/22 09:17 ABG O2 Saturation 93.5 04/04/22 09:17 ABG Base Excess 11.5 mmol/L (-2.0-2.0) H 04/04/22 09:17 Travis Test Pos 04/04/22 09:17 A-a O2 Gradient 3.4 mmHg (5-10) L 04/04/22 09:17 Hematocrit 29.0 % (37-47) L 04/04/22 09:17 Hgb O2 Saturation 91.0 % (95-100) L 04/04/22 09:17 Carboxyhemoglobin 1.8 %THgb (0.4-20.1) 04/04/22 09:17 Methemoglobin 0.8 % (0.4-1.5) 04/04/22 09:17 Total Hemoglobin 9.5 g/dL (12-16) L 04/04/22 09:17 Sodium 130.0 mmol/L (131-143) L 04/04/22 09:17 Potassium 3.6 mmol/L (3.5-5.0) 04/04/22 09:17 Glucose 222.0 mg/dL (70-115) H 04/04/22 09:17 Ionized Calcium 1.1 mmol/L (1.1-1.4) 04/04/22 09:17 O2 Delivery Device Nc 04/04/22 09:17 O2 Liters/Min 2.0 % 04/04/22 09:17 Cotton Gin Yard Supervisor ID Isi 04/04/22 09:17 Sodium Cancelled 04/06/22 01:50 Potassium Cancelled 04/06/22 01:50 Chloride Cancelled 04/06/22 01:50 Carbon Dioxide Cancelled 04/06/22 01:50 Anion Gap Cancelled 04/06/22 01:50 BUN Cancelled 04/06/22 01:50 Creatinine Cancelled 04/06/22 01:50 GFR Calculation Cancelled 04/06/22 01:50 Glucose Cancelled 04/06/22 01:50 Calculated Osmolality Cancelled 04/06/22 01:50 Calcium Cancelled 04/06/22 01:50 Magnesium 2.8 mg/dL (1.7-2.3) H 04/04/22 02:23 Total Bilirubin 1.4 mg/dL (0.15-1.2) H 04/03/22 14:44 AST 22 U/L (0-32) 04/03/22 14:44 ALT 37 U/L (0-33) H 04/03/22 14:44 Alkaline Phosphatase 91 U/L (35-105) 04/03/22 14:44 Troponin T Gen 5 ng/L 80 ng/L (0-10) H 04/03/22 14:44 NT-Pro-B Natriuret Pep 7497 pg/mL (0-125) H 04/03/22 14:44 Total Protein 6.2 g/dL (6.6-8.7) L 04/03/22 14:44 Albumin 3.5 g/dL (3.5-5.2) 04/03/22 14:44 Globulin 2.7 g/dL (1.3-4.6) 04/03/22 14:44 Urine Color Yellow (Yellow) 04/03/22 14:59 Urine Appearance Cloudy (CLEAR) A 04/03/22 14:59 Urine pH 5 (5-7) 04/03/22 14:59 Ur Specific [place] 1.015 (1.005-1.030) 04/03/22 14:59 Urine Protein Neg (Negative) 04/03/22 14:59 Urine Glucose (UA) Norm (Normal) 04/03/22 14:59 Urine Ketones Negative (Negative) 04/03/22 14:59 Urine Blood Neg (Negative) 04/03/22 14:59 Urine Nitrate Negative (Negative) 04/03/22 14:59 Urine Bilirubin Neg (Negative) 04/03/22 14:59 Urine Urobilinogen Norm mg/dL (Negative) 04/03/22 14:59 Ur Leukocyte Esterase Negative (Negative) 04/03/22 14:59 Urine RBC 0-4 /hpf (0-2) H 04/03/22 14:59 Urine WBC 0-4 /hpf (0-5) H 04/03/22 14:59 Ur Squamous Epith Cells 25-40 /hpf (0-5) H 04/03/22 14:59 Amorphous Sediment Not Reportable 04/03/22 14:59 Urine Bacteria 1+ /hpf (NONE) H 04/03/22 14:59 Urine Mucus Trace /hpf 04/03/22 14:59 Urine Yeast 1+ /hpf H 04/03/22 14:59 Vitals Last Vital Signs Temp 98.8 F 04/06/22 04:00 Pulse 70 04/06/22 07:57 Resp 16 04/06/22 07:57 BP 97/59 04/06/22 07:57 Pulse Ox 90 04/06/22 07:57 O2 Del Method 04/06/22 07:57 O2 Flow Rate 3 04/06/22 07:57 Discharge Plan Discharge Patient Disposition: Xfer SNF Condition: Stable Prescriptions: Continued rosuvastatin 40 mg tablet 40 mg PO DAILY Hold Instructions: Resume on 04/06/22. alprazolam [Xanax] 0.25 mg tablet 0.125 mg PO BID PRN (Reason: anxiety) Qty: 10 0RF amiodarone 200 mg tablet 400 mg PO DAILY Incruse Ellipta 62.5 mcg/actuation blister with device 1 inh inhalation DAILY montelukast 10 mg tablet 10 mg PO DAILY potassium chloride 10 mEq tablet extended release 10 meq PO DAILY Qty: 90 3RF apixaban 5 mg tablet 5 mg PO BID Qty: 180 3RF levocetirizine 5 mg tablet 5 mg PO DAILY gabapentin 300 mg capsule 300 mg PO TID aspirin 81 mg Tablet,Chewable 81 mg PO DAILY multivitamin Tablet 1 tab PO DAILY ascorbic acid (vitamin C) [Vitamin C] 500 mg Tablet 500 mg PO DAILY magnesium oxide 250 mg magnesium Tablet 250 mg PO DAILY albuterol sulfate 2.5 mg /3 mL (0.083 %) Solution For Nebulization 2.5 mg INHALATION Q6H PRN (Reason: Shortness Of Breath) nitroglycerin [Nitrostat] 0.4 mg Tablet, Sublingual 0.4 mg SUBLINGUAL Q5M PRN (Reason: Chest Pain) albuterol sulfate [Ventolin HFA] 90 mcg/actuation HFA aerosol inhaler 1 - 2 puff INHALATION QID PRN (Reason: Shortness Of Breath) spironolactone 25 mg Tablet 25 mg PO DAILY metoprolol succinate 25 mg tablet extended release 24 hr 25 mg PO DAILY allopurinol 300 mg tablet 300 mg PO DAILY cyclobenzaprine 5 mg tablet 5 mg PO BEDTIME omega 4-fhi-til-fish oil [Fish Oil] 60-90-500 mg Capsule 1 cap PO DAILY sodium chloride 1 gram Tablet 1 g PO BID 30 Days Qty: 60 0RF Changed furosemide 40 mg tablet 60 mg PO BID 30 Days Qty: 60 0RF Discharge Orders: Discharge Order (Routine); Ordered 04/06/22 Ordered By: Diane Bashir Other Ambulatory Orders: Basic Metabolic Panel (Routine) Timeframe: 1 Week Facility: [facility] - Location: Lab - Main Lab Ordered By: Diane Bashir Referrals: [facility] [Outside] Lee Saldaña MD [Physician] - 1 month Hermila Medrano FNP [Nurse Practitioner] - 1 week Lois Sorto PA [Primary Care Provider] - 4-7 days Discharge Diet: Cardiac and GI Soft Discharge Activity: Increase activity as tolerated and Oxygen as instructed Activity Restrictions/Additional Instructions: Please follow up with PCP and cardiology as directed. Home health has been setup for you. Please return to ER should you gain > 3 pounds in a day or > 5lbs in 3 days. Please weigh yourself daily. If you develop palpitations, shortness of breath, chest pain, abdominal pain or any other symptoms that are new or worsening from existing, please seek medical attention by returning to ER. Lastly, you have been placed on salt tablets, please recheck your labs to ensure sodium remains stable and follow up with your primary care doctor. Discharge Attestations Time Spent in Discharge Care*: greater than 30 min Status at Discharge: Cognitive status at discharge: cognitively intact, Behavioral status at discharge: cooperative, Quality Metrics Clinical Quality Measures [ No reported AMI, CVA or VTE this stay] Coding Level of Care Code Acute Chg FW DC note Diagnoses Congestive heart failure I50.9 Hypokalemia E87.6 Generalized weakness R53.1 ICD (implantable cardioverter-defibrillator), dual, in situ Z95.810 Gout M10.9 Chronic episodic atrial fibrillation I48.20 Lumbar stenosis with neurogenic claudication M48.062
[2022-04-06 08:51] LABS: Anion Gap 12.1 (5-19); Blood Urea Nitrogen 49 mg/dL (8-23); Calcium 8.6 mg/dL (8.5-10.5); Carbon Dioxide 35 mmol/L (22-29); Chloride 89 mmol/L (98-107); Glomerular Filtration Rate 32.2 mL/min (90-130); Glucose 142 mg/dL (65-115); Osmolality Calculated 289 mOsm/kg (285-295); Potassium 4.1 mmol/L (3.5-5.1); Sodium 132 mmol/L (136-145)
[2022-04-06] MEDS: gabapentin 300 mg Capsule PO (08:58)
[2022-04-06] MEDS: cetirizine 10 mg Tablet PO (08:58)
[2022-04-06] MEDS: sodium chloride 1 gm Tablet PO (08:59)
[2022-04-06] MEDS: atorvastatin 40 mg Tablet 80 MG PO (08:59)
[2022-04-06] MEDS: multivitamin therapeutic Tablet 1 TAB PO (08:59)
[2022-04-06] MEDS: metoprolol succinate ER (24 HR) 25 mg Tablet PO (08:59)
[2022-04-06] MEDS: montelukast sodium 10 mg Tablet PO (09:00)
[2022-04-06] MEDS: amiodarone 200 mg Tablet 400 MG PO (09:00)
[2022-04-06] MEDS: omega-3 fatty acids 1,000 mg Capsule 1000 MG PO (09:00)
[2022-04-06] MEDS: ascorbic acid 500 mg Tablet PO (09:00)
[2022-04-06] MEDS: apixaban 5 mg Tablet PO (09:05)
[2022-04-06] MEDS: allopurinol 300 mg Tablet PO (09:05)
[2022-04-06] MEDS: aspirin 81 mg Chew Tablet PO (09:06)
[2022-04-06] MEDS: sodium chloride 0.9% 250 ML IV (09:09)
[2022-04-06 11:19] LABS: SARS Covid-2 Antigen negative (Negative)
--- NOTE | 2022-04-06 11:31 | PC.NURSE ---
Report called to [facility].
[2022-04-06 12:00] VITALS: BP 98/68; PULSE 70; RESP 18
--- NOTE | 2022-04-06 17:05 | PC.SOCIAL ---
IMM Update pg 2 of IMM updated and reviewed w/ patient. Copy provided and Copy dated, initialed and placed in chart.
== END 2022-04-06 12:30 | disposition skilled nursing facility (03) | DRG 292 ==
LOC: ER 17:49 → CSU 18:45
PROVIDERS: Admitting Provider Internal Medicine; Emergency Provider Emergency Medicine; PCP Physician Assistant; Visit Provider Internal Medicine
DX: I50.23 Acute on chronic systolic (congestive) heart failure (principal); E87.1 Hypo-osmolality and hyponatremia; I48.20 Chronic atrial fibrillation, unspecified; N17.9 Acute kidney failure, unspecified; K56.7 Ileus, unspecified; N18.9 Chronic kidney disease, unspecified; E87.6 Hypokalemia; Z95.810 Presence of automatic (implantable) cardiac defibrillator; M10.9 Gout, unspecified; M48.062 Spinal stenosis, lumbar region with neurogenic claudication; I25.5 Ischemic cardiomyopathy; I25.10 Atherosclerotic heart disease of native coronary artery without angina pectoris; Z95.5 Presence of coronary angioplasty implant and graft; F32.A Depression, unspecified; Z91.128 Patient's intentional underdosing of medication regimen for other reason; K59.00 Constipation, unspecified; K62.89 Other specified diseases of anus and rectum; Z79.82 Long term (current) use of aspirin; Z79.51 Long term (current) use of inhaled steroids; Z75.1 Person awaiting admission to adequate facility elsewhere; Z99.81 Dependence on supplemental oxygen; F17.210 Nicotine dependence, cigarettes, uncomplicated; G62.9 Polyneuropathy, unspecified; E78.2 Mixed hyperlipidemia; J44.9 Chronic obstructive pulmonary disease, unspecified
CPT/HCPCS: 36415; 36600; 51702; 71045; 74018; 74176; 80048; 80051; 80053; 81001; 82330; 82805; 83735; 83880; 84484; 85025; 87426; 93005; 94640; 96365; 96375; 97162; 97530; 99285; J1940; J2270; J3475; J7050; J7613